=== PATIENT | female | born 1940 | race Two or more races ===

== ENCOUNTER 2017-04-13 21:10 | Emergency (ER) | payer OTHER, MEDICARE ==
[2017-04-13] MEDS ORDERED: Furosemide 40 MG/4 ML VIAL IVPUSH ONE ×2 (21:44→23:33)
--- NOTE | 2017-04-13 21:44 | EDM.PDOC ---
ED HPI GENERAL MEDICAL PROBLEM - General Chief Complaint: Chest Pain Stated Complaint: CHEST PAIN,SOB Time Seen by Provider: 04/13/17 21:12 Source of Information: Reports: Patient History Limitations: Reports: No Limitations - History of Present Illness INITIAL COMMENTS - FREE TEXT/NARRATIVE: Patient comes to ER complaining of increasing SOB over the past 5 days since running out of her diuretic. She has been running out of other medications as well and has not been taking all of them as prescribed, sometimes skipping doses to make them last longer. Tonight she developed some chest pain which is why she came in. Patient has long history of CHF/cardiolmyopathy as well as COPD and says she has felt exactly this way in the past when she "had too much fluid in (her) lungs". She recently moved her with family from [place]. She had prescriptions with her when she moved. Evaluated in our ER last January and transferred to [place] where she says she was seen by multiple specialists. She was supposed to follow up locally but has been unable to establish local care due to insurance issues and not being able to get covered. States that [facility] here spent a significant amount of time trying to get coverage for patient to be seen there but was unable. She says that this is why she has not been able to get her meds renewed and led to today's problems as she cannot find a local primary provider. ROS positive for increased SOB/fatigue/cough. No fevers. No obvious signs of cold/URI. Denies acute GI changes. No /MS/Neuro acute changes. No report of chest pain radiating anywhere else. She has been unable to check blood sugars due to being out of supplies. Looking through her medications she appears to be out of Spironolactone, Bumetanide, Zestril, Atorvastatin, Omeprazole. Some medications that she had been on in [place] were changed by [facility] during her recent stay there. CHEST PRESSURE Pain Score (Numeric/FACES): 8 - Related Data Allergies Allergy/AdvReac Type Severity Reaction Status Date / Time No Known Allergies Allergy Verified 04/13/17 21:11 Home Meds: Home Meds Albuterol/Ipratropium [DuoNeb 3.0-0.5 MG/3 ML] 3 ml NEB QID 02/21/17 [History] Aspirin [Halfprin] 81 mg PO DAILY 02/21/17 [History] Brinzolamide [Azopt] 1 drop EYEBOTH BID 02/21/17 [History] Carvedilol [Coreg] 25 mg PO BID 02/21/17 [History] Furosemide [Lasix] 40 mg PO DAILY 02/21/17 [History] Insulin Glarg,Human.Rec.Analog [LantUS Solostar] 10 units SUBCUT DAILY 02/21/17 [History] Insulin Glulisine [Apidra Solostar] 10 unit SQ DAILY 02/21/17 [History] Ipratropium [Atrovent HFA] 2 puff INH Q2H PRN 02/21/17 [History] Latanoprost [Xalatan 0.005% Oph Soln] 1 drop EYEBOTH BEDTIME 02/21/17 [History ] Lisinopril [Zestril] 4 tab PO BEDTIME 02/21/17 [History] Omeprazole 20 mg PO DAILY 02/21/17 [History] atorvaSTATin Calcium [Atorvastatin Calcium] 80 mg PO BEDTIME 02/21/17 [History] Bumetanide 1 mg PO DAILY 04/13/17 [History] Ferrous Sulfate 325 mg PO DAILY 04/13/17 [History] Spironolactone [Aldactone] 25 mg PO DAILY 04/13/17 [History] Past Medical History HEENT History: Reports: Cataract, Glaucoma, Hard of Hearing, Impaired Vision, Other (See Below). Denies: Allergic Rhinitis, Macular Degeneration, Retinal Detachment Other HEENT History: Patient wears glasses; 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 Cardiovascular History: Reports: Cardiomyopathy, Heart Failure, High Cholesterol , Hypertension, Syncope, Other (See Below). Denies: Afib, Aneurysm, Arrhythmia , Blood Clots/VTE/DVT, CAD, Heart Murmur, VA, Pacemaker Other Cardiovascular History: Cardiomyopathy and history of CHF with ejection fraction of about 30% per son's history; syncopal episode of unknown etiology in 2017 Respiratory History: Reports: COPD, Other (See Below). Denies: Intubation, Previous, PE, Pneumothorax, Sleep Apnea Other Respiratory History: O2 dependent COPD Gastrointestinal History: Reports: Chronic Diarrhea, Gastritis, GERD. Denies: Celiac Disease, Cholelithiasis, Chronic Constipation, Colon Polyp, Diverticulosis, Fecal Incontinence, GI Bleed, Hepatitis, Inflammatory Bowel Disease, Irritable Bowel Syndrome, Jaundice, Pancreatitis, PUD Genitourinary History: Reports: Chronic Renal Insuffiency, Diabetic Nephropathy , UTI, Recurrent. 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 Denies: Endometriosis, Spontaneous , Therapeutic Musculoskeletal History: Reports: Arthritis, Osteoarthritis. Denies: Amputation , Back Pain, Chronic, Fracture, Gout, Neck Pain, Chronic, Osteoporosis, RA, SLE Neurological History: Reports: Neuropathy, Diabetic, Neuropathy, Peripheral. Denies: Cerebral Aneurysms, Concussion, CVA, Headaches, Chronic, Head Trauma, Migraines, MS, Parkinson's, Seizure, TIA Psychiatric History: Reports: None. Denies: Abuse, Victim of, ADD, ADHD, Addiction, Anxiety, Depression, Psych Hospitalization(s), PTSD, Suicide Attempt , Suicidal Ideation Other Psychiatric History: Son with alcohol abuse with secondary alcoholic cardiomyopathy, CHF, anxiety, depression, and successful suicide at age 45 with previous inpatient treatment for his addiction, etc. Endocrine/Metabolic History: Reports: Diabetes, Type II, IDDM. Denies: Hypothyroidism Hematologic History: Reports: Anemia, Blood Transfusion(s), Iron Deficiency, Other (See Below) Other Hematologic History: Transfusion secondary to dysfunctional uterine bleeding in her 40s Immunologic History: Reports: None. Denies: AIDS, HIV, SLE Oncologic (Cancer) History: Reports: Cervix, Other (See Below). Denies: Basal Cell Carcinoma, Colon, Hodgkin's Lymphoma, Leukemia, Lymphoma, Malignant Melanoma, Non-Hodgkin's Lymphoma, Squamous Cell Carcinoma Other Oncologic History: Incidental Cervical cancer in her 40s at time of her hysterectomy with no further treatment required Dermatologic History: Reports: None. Denies: Eczema, Psoriasis - Infectious Disease History Infectious Disease History: Reports: Chicken Pox, Measles, Mumps, TB (TB exposure with no true infection with medications given). Denies: C-Difficile, Meningitis, Mononucleosis, MRSA, Pertussis (Whooping Cough), Rheumatic Fever, Rubella, Scarlet Fever, Shingles, VRE - Past Surgical History Head Surgeries/Procedures: Reports: None HEENT Surgical History: Reports: Cataract Surgery, Oral Surgery, Tonsillectomy, Other (See Below). Denies: Adenoidectomy, Eye Surgery, Laser Surgery, LASIK, Myringotomy w Tube(s), Naso-Sinus Surgery Other HEENT Surgeries/Procedures: Bilateral cataract surgery in about 2014; Tonsillectomy at age 13 Cardiovascular Surgical History: Reports: None. Denies: Varicose Respiratory Surgical History: Reports: None. Denies: Lung Biopsies, Thoracentesis GI Surgical History: Reports: Appendectomy, Colonoscopy, Other (See Below). Denies: EGD, Hernia, Abdominal, Hernia, Inguinal, Hernia Repair/Other, Polypectomy Other GI Surgeries/Procedures: Appendectomy in 1967; colonoscopy in 1994 Female Surgical History: Reports: Hysterectomy, Salpingo-Oophorectomy, Other (See Below). Denies: Breast Biopsy, Section, Tubal Ligation Other Female Surgeries/Procedures: Complete hysterectomy including bilateral salpingo-oophorectomy in her 40s secondary to dysfunctional uterine bleeding Musculoskeletal Surgical History: Reports: Arthroscopic Procedure, Carpal Tunnel , Joint Replacement, Knee Replacement, Shoulder Surgery, Other (See Below). Denies: Ganglion Cyst, Hip Replacement, ORIF Other Musculoskeletal Surgeries/Procedures:: Left total knee arthroplasty in 2004; bilateral arthroscopic shoulder surgery in 2001; Left carpal tunnel release 1997 Oncologic Surgical History: Reports: None Dermatological Surgical History: Reports: None - Past Imaging History Past Imaging History: Reports: Cardiac Echo (Last echocardiogram in June 2016 per patient with ejection fraction of 30% at that time) Social & Family History - Family History Cardiac: Reports: CAD, Cardiomyopathy, Heart Failure, High Cholesterol, Hypertension, VA, Other (See Below). Denies: Afib, Aneurysm, Arrhythmia, Blood Clots/VTE/DVT, Bypass, Heart Murmur, PVD/COD, Stent, Syncope Other Cardiac Family History: Father with fatal VA at age 67; 3 brothers with hypertension; brother with hyperlipidemia; son with alcohol-induced cardiomyopathy Respiratory: Reports: None. Denies: Asthma, COPD, PE, Pneumothorax GI: Reports: GERD, Other (See Below). Denies: Celiac Disease, Cholelithiasis, Colon Polyps, Diverticulosis, GI bleed, Hepatitis, Inflammatory Bowel Disease, Irritable Bowel Syndrome, Jaundice, Pancreatitis, PUD Other GI Family History: GERD in brother : Reports: Diabetic Nephropathy, Dialysis, Renal Disease/Insufficiency, Other (See Below). Denies: Renal Calculus Other Family History: Sister with diabetic nephropathy requiring dialysis OBGYN: Reports: Recurrent Spontaneous . Denies: Dysfunctional uterine bleeding, Endometriosis, Fibroids Other OBGYN Family History: Sister with recurrent SAB Musculoskeletal: Reports: None. Denies: Gout, RA, SLE Neurological: Reports: None. Denies: Alzheimers Disease, CVA, Dementia, Migraines, MS, Neuropathy, Diabetic, Neuropathy, Peripheral, Parkinson's, Seizure, TIA Psychiatric: Reports: Anxiety, Depression, Psych Hospitalization(s), Suicide Attempt, Other (See Below). Denies: Abuse, Victim of, ADD, PTSD Other Psychiatric Family History: Son with alcohol abuse with secondary alcoholic cardiomyopathy, CHF, anxiety, depression, and successful suicide at age 45 with previous inpatient treatment for his addiction, etc. Endocrine/Metabolic: Reports: Diabetes, type II, Other (See Below). Denies: Hypothyroidism, IDDM Other Endocrine/Metabolic Family History: Sister with AODM with complications as above Hematologic: Reports: None. Denies: Anemia, SLE Immunologic: Reports: None. Denies: AIDS, HIV, SLE Dermatologic: Reports: None. Denies: Eczema, Psoriasis Oncologic: Reports: Other (See Below). Denies: Hodgkin's Lymphoma, Leukemia, Lymphoma, Non-Hodgkin's Lymphoma, Prostate Other Oncologic Family History: Brothers 2 with unknown type of fatal cancer - Tobacco Use Smoking Status *Q: Former Smoker Years of Tobacco use: 10 Packs/Tins Daily: 1.5 (Stop smoking in her 30s) Used Tobacco, but Quit: Yes Month Tobacco Last Used: quit 50 years ago Second Hand Smoke Exposure: Yes - Caffeine Use Caffeine Use: Reports: Soda (2 sodas per day and), Tea (3 cups per day). Denies : Coffee, Energy Drinks - Alcohol Use Days Per Week of Alcohol Use: 0 (No previous DWIs, problems with alcohol abuse, etc.) - Recreational Drug Use Recreational Drug Use: No Drug Use in Last 12 Months: No - Living Situation & Occupation Living situation: Reports: (2016, 4 children) Occupation: Retired ([employer], retired at age 69) ED ROS GENERAL - Review of Systems Review Of Systems: See Below Constitutional: Reports: Fatigue, Night Sweats, Weight Gain (uncertain), Other ( no diaphoresis associated with chest pain). Denies: Fever, Chills, Malaise, Weakness HEENT: Reports: No Symptoms Respiratory: Reports: Shortness of Breath, Cough. Denies: Wheezing, Pleuritic Chest Pain, Sputum, Hemoptysis Cardiovascular: Reports: Chest Pain, Dyspnea on Exertion, Orthopnea. Denies: Edema, Lightheadedness, Palpitations, Syncope GI/Abdominal: Reports: Diarrhea (has had issus with loose stools intermittently for awhile, improving). Denies: Abdominal Pain, Black Stool, Bloody Stool, Distension, Nausea, Vomiting : Reports: No Symptoms Musculoskeletal: Reports: No Symptoms (no acute changes form baseline reported other than some swelling around right knee at times) Skin: Reports: No Symptoms Neurological: Reports: No Symptoms Psychiatric: Reports: No Symptoms ED EXAM, GENERAL - Physical Exam Exam: See Below Exam Limited By: No Limitations General Appearance: Alert, WD/WN, No Apparent Distress, Obese, Other (Breathing hard when she followed son in from parking lot into ER. ) Eye Exam: Bilateral Eye: EOMI, PERRL Ears: Normal External Exam Nose: No: Nasal Swelling, Nasal Drainage Throat/Mouth: Normal Lips, Normal Voice, No Airway Compromise Head: Atraumatic, Normocephalic Neck: Normal Inspection, Supple, Non-Tender, Full Range of Motion. No: Carotid Bruit, Lymphadenopathy (L), Lymphadenopathy (R) Respiratory/Chest: No Respiratory Distress, Chest Non-Tender, Decreased Breath Sounds (right mid/lower lung). No: Crackles, Rales, Rhonchi, Wheezing, Stridor , Retractions Cardiovascular: Normal Peripheral Pulses, No Edema, No Murmur, Tachycardia (104) Peripheral Pulses: 2+: Radial (L), Radial (R), Dorsalis Pedis (L), Dorsalis Pedis (R) GI/Abdominal: Normal Bowel Sounds, Soft, Non-Tender, No Distention (Female) Exam: Deferred Rectal (Female) Exam: Deferred Back Exam: Normal Inspection. No: CVA Tenderness (L), CVA Tenderness (R) Extremities: Normal Inspection, Non-Tender, No Pedal Edema, Normal Capillary Refill Neurological: Alert, Oriented, Normal Cognition, Normal Gait, No Motor/Sensory Deficits Psychiatric: Normal Affect, Normal Mood Skin Exam: Warm, Dry, Intact, Normal Color EKG INTERPRETATION EKG Date: 04/13/17 Time: 21:15 Rhythm: NSR Rate (Beats/Min): 95 [place]: Normal P-Wave: Present QRS: Normal ST-T: Other (No obvious/definite ST depression or elevation) QT: Normal Comparison: No Change EKG Interpretation Comments: Overall no change from previous EKG. Voltage change suggests LVH Course - Vital Signs Last Recorded V/S: Last Vital Signs Temp 36.8 C 04/13/17 21:32 Pulse 118 H 04/13/17 21:32 Resp 19 04/13/17 21:32 BP 169/99 H 04/13/17 22:26 Pulse Ox 97 04/13/17 21:32 - Orders/Labs/Meds Orders: Active Orders 24 hr Category Date Time Status EKG Documentation Completion [RC] ASDIRECTED Care 04/13/17 21:13 Active Penaloza Catheter Insertion [Insert Urinary Catheter] [OM. Care 04/13/17 22:45 Ordered PC] Q24H Urinary Catheter Assessment [RC] ASDIRECTED Care 04/13/17 22:42 Ordered Chest 1V Frontal [CR] Stat Exams 04/13/17 21:14 Ordered UA W/MICROSCOPIC [URIN] Stat Lab 04/13/17 21:13 Uncollected Sodium Chloride 0.9% [Saline Flush] Med 04/13/17 21:13 Active 10 ml FLUSH ASDIRECTED PRN Saline Lock Insert [OM.PC] Stat Oth 04/13/17 21:13 Ordered Medication Orders Sodium Chloride (Saline Flush) 10 ml FLUSH ASDIRECTED PRN PRN Reason: Keep Vein Open Last Admin: 04/13/17 21:53 Dose: 10 ml Labs: Laboratory Tests 04/13/17 04/13/17 04/13/17 Range/Units 21:20 21:25 21:25 WBC 9.0 (4.0-10.2) K/uL RBC 4.07 (3.77-5.09) M/uL Hgb 12.1 (11.7-15.5) g/dL Hct 37.1 (34.0-46.0) % MCV 91.2 D (84.0-98.0) fL MCH 29.7 (28.2-33.3) pg MCHC 32.6 (31.7-36.0) g/dL RDW 13.8 (11.2-14.1) % Plt Count 183 (150-350) K/uL Neut % (Auto) 51.8 (45.0-80.0) % Lymph % (Auto) 38.1 (10.0-50.0) % Pope % (Auto) 6.7 (2.0-14.0) % Eos % (Auto) 3.0 (0.0-5.0) % Baso % (Auto) 0.4 (0.0-2.0) % Neut # (Auto) 4.64 (1.40-7.00) K/uL Lymph # (Auto) 3.42 (0.50-3.50) K/uL Pope # (Auto) 0.60 (0.00-1.00) K/uL Eos # (Auto) 0.27 (0.00-0.50) K/uL Baso # (Auto) 0.04 (0.00-0.20) K/uL PT (9.8-11.7) SEC INR D-Dimer, Quantitative 352 (0-400) ng/mL Sodium 142 (136-145) mmol/L Potassium 3.9 (3.5-5.1) mmol/L Chloride 106 (98-107) mmol/L Carbon Dioxide 26.4 (21.0-32.0) mmol/L BUN 24 H (7-18) mg/dL Creatinine 0.75 (0.51-1.17) mg/dL Est Cr Clr Drug Dosing 55.10 mL/min Estimated GFR (MDRD) > 60 mL/min Glucose 216 H (74-106) mg/dL Calcium 8.4 L (8.5-10.1) mg/dL Total Bilirubin 0.5 (0.2-1.0) mg/dL AST 16 (15-37) U/L ALT 20 (12-78) U/L Alkaline Phosphatase 139 H (46-116) IU/L Creatine Kinase 62 (26-308) U/L Creatine Kinase Index 1.3 (0.0-2.5) % CK-MB (CK-2) 0.80 (0.00-3.60) ng/mL Troponin I 0.016 (0.000-0.056) ng/mL NT-Pro-B Natriuret Pep 7026 H (0-125) pg/mL Total Protein 6.6 (6.4-8.2) g/dL Albumin 3.0 L (3.4-5.0) g/dL 04/13/17 Range/Units 21:25 WBC (4.0-10.2) K/uL RBC (3.77-5.09) M/uL Hgb (11.7-15.5) g/dL Hct (34.0-46.0) % MCV (84.0-98.0) fL MCH (28.2-33.3) pg MCHC (31.7-36.0) g/dL RDW (11.2-14.1) % Plt Count (150-350) K/uL Neut % (Auto) (45.0-80.0) % Lymph % (Auto) (10.0-50.0) % Pope % (Auto) (2.0-14.0) % Eos % (Auto) (0.0-5.0) % Baso % (Auto) (0.0-2.0) % Neut # (Auto) (1.40-7.00) K/uL Lymph # (Auto) (0.50-3.50) K/uL Pope # (Auto) (0.00-1.00) K/uL Eos # (Auto) (0.00-0.50) K/uL Baso # (Auto) (0.00-0.20) K/uL PT 11.3 (9.8-11.7) SEC INR 1.1 D-Dimer, Quantitative (0-400) ng/mL Sodium (136-145) mmol/L Potassium (3.5-5.1) mmol/L Chloride (98-107) mmol/L Carbon Dioxide (21.0-32.0) mmol/L BUN (7-18) mg/dL Creatinine (0.51-1.17) mg/dL Est Cr Clr Drug Dosing mL/min Estimated GFR (MDRD) mL/min Glucose (74-106) mg/dL Calcium (8.5-10.1) mg/dL Total Bilirubin (0.2-1.0) mg/dL AST (15-37) U/L ALT (12-78) U/L Alkaline Phosphatase (46-116) IU/L Creatine Kinase (26-308) U/L Creatine Kinase Index (0.0-2.5) % CK-MB (CK-2) (0.00-3.60) ng/mL Troponin I (0.000-0.056) ng/mL NT-Pro-B Natriuret Pep (0-125) pg/mL Total Protein (6.4-8.2) g/dL Albumin (3.4-5.0) g/dL Meds: Medications Generic Name Dose Route Start Last Admin Trade Name Freq PRN Reason Stop Dose Admin Sodium Chloride 10 ml 04/13/17 21:13 04/13/17 21:53 Saline Flush FLUSH 10 ml ASDIRECTED PRN Administration Keep Vein Open Discontinued Medications Generic Name Dose Route Start Last Admin Trade Name Freq PRN Reason Stop Dose Admin Aspirin 324 mg 04/13/17 22:22 04/13/17 22:26 Aspirin PO 04/13/17 22:23 324 mg ONETIME ONE Administration Furosemide 40 mg 04/13/17 21:44 04/13/17 21:53 Lasix IVPUSH 04/13/17 21:45 40 mg NOW ONE Administration Nitroglycerin 0.4 mg 04/13/17 22:21 04/13/17 22:26 Nitrostat SL 04/13/17 22:22 0.4 mg ONETIME ONE Administration - Radiology Interpretation Free Text/Narrative:: Chest Xray showed no acute changes when compared to previous film from 2 months ago. No obvious acute new infiltrate/pneumo or worsening pleural effusion. CHF/ cardiomegaly noted. Mild pleural effusions appear to be still present. - Re-Assessments/Exams Free Text/Narrative Re-Assessment/Exam: 04/13/17 22:43 Patient improved once sitting in bed resting and back on usual O2 of 2L NC. BP quite high, that improved with time but remained elevated. Heart rate improved but would increase to 110-120 with activity. CBC unremarkable. Chem showed elevated blood sugar 216 lower albumin. Troponin and CKMB normal. DDimer normal. IV access obtained. Patient given Lasix. Nitro SL given for her chest pain, located to left of sternum. Pain improved significantly. Protonix ordered. Penaloza placed. Lisinopril given PO. Given complexity of patient (DM,CHF,Cardiomyopathy,renal insufficiency, pulmonary hypertension, COPD) and lack of local provider, [facility] contacted. agreed to accept patient in transfer for treatment of CHF exacerbation and other comorbitities. It was stress to pt prior to transfer that she needs to get help from [facility] at time of discharge to get follow up appointments with appropriate providers that are covered by her plan for best medical care so this situation does not happen again. She was agreeable/ Departure - Departure Time of Disposition: 23:02 Disposition: DC/Tfer to [facility] 02 Reason for Transfer *Q: Primary PCI Indicated Condition: Fair Clinical Impression: Pulmonary hypertension, Peptic reflux disease CHF (congestive heart failure) Qualifiers: Congestive heart failure type: unspecified congestive heart failure type Congestive heart failure chronicity: acute on chronic Qualified Code(s): I50.9 - Heart failure, unspecified COPD (chronic obstructive pulmonary disease) Qualifiers: COPD type: emphysema Emphysema type: panlobular Qualified Code(s): J43.1 - Panlobular emphysema Diabetes mellitus Qualifiers: Diabetes mellitus type: type 2 Diabetes mellitus complication status: with kidney complications Diabetes mellitus complication detail: with chronic kidney disease Diabetes mellitus marine 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 terminal 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 insulin use: with marine oil terminal 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 use Chronic kidney disease stage: stage 3 (moderate) Qualified Code(s): E11.22 - Type 2 diabetes mellitus with diabetic chronic kidney disease; N18.3 - Chronic kidney disease, stage 3 (moderate); N18.3 - Chronic kidney disease, stage 3 (moderate) ; Z79.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; Z79.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; Z79.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; Z79.4 - marine oil terminal 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 ( current) use of insulin Chest pain Qualifiers: Chest pain type: unspecified Qualified Code(s): R07.9 - Chest pain, unspecified HTN (hypertension) Qualifiers: Hypertension type: essential hypertension Qualified Code(s): I10 - Essential ( primary) hypertension Forms: ED Department Discharge - My Orders Last 24 Hours: My Active Orders 04/13/17 21:13 EKG Documentation Completion [RC] ASDIRECTED UA W/MICROSCOPIC [URIN] Stat Sodium Chloride 0.9% [Saline Flush] 10 ml FLUSH ASDIRECTED PRN Saline Lock Insert [OM.PC] Stat 04/13/17 21:14 Chest 1V Frontal [CR] Stat 04/13/17 22:42 Urinary Catheter Assessment [RC] ASDIRECTED 04/13/17 22:45 Penaloza Catheter Insertion [Insert Urinary Catheter] [OM.PC] Q24H - Assessment/Plan Last 24 Hours: My Active Orders 04/13/17 21:13 EKG Documentation Completion [RC] ASDIRECTED UA W/MICROSCOPIC [URIN] Stat Sodium Chloride 0.9% [Saline Flush] 10 ml FLUSH ASDIRECTED PRN Saline Lock Insert [OM.PC] Stat 04/13/17 21:14 Chest 1V Frontal [CR] Stat 04/13/17 22:42 Urinary Catheter Assessment [RC] ASDIRECTED 04/13/17 22:45 Penaloza Catheter Insertion [Insert Urinary Catheter] [OM.PC] Q24H
[2017-04-13 21:50] LABS: CHLORIDE,CL 106 mmol/L (98-107); SODIUM,NA 142 mmol/L (136-145)
[2017-04-13] MEDS: Sodium Chloride 0.9% 10 ML Syringe FLUSH PRN ×3 (21:53→23:36)
[2017-04-13] MEDS ORDERED: Nitroglycerin 0.4 MG Tab.SL SL ONE (22:21)
[2017-04-13] MEDS ORDERED: Aspirin 81 MG Tab.Chew PO ONE (22:22)
[2017-04-13] MEDS ORDERED: Pantoprazole 40 MG Vial IVPUSH ONE (22:54)
[2017-04-13] MEDS ORDERED: Albuterol/Ipratropium 3.0-0.5 MG/3 ML Neb Soln NEB ONE (22:56)
[2017-04-13] MEDS ORDERED: Lisinopril 10 MG Tab PO ONE (22:57)
== END 2017-04-14 00:05 ==
LOC: LL.ED 21:10
DX: I13.0 Hypertensive heart and chronic kidney disease with heart failure and stage 1 through stage 4 chronic kidney disease, or unspecified chronic kidney disease (principal); E11.22 Type 2 diabetes mellitus with diabetic chronic kidney disease; N18.3 Chronic kidney disease, stage 3 (moderate); I50.9 Heart failure, unspecified; I27.20 Pulmonary hypertension, unspecified; K21.9 Gastro-esophageal reflux disease without esophagitis; J43.1 Panlobular emphysema; I25.10 Atherosclerotic heart disease of native coronary artery without angina pectoris; E11.40 Type 2 diabetes mellitus with diabetic neuropathy, unspecified; E11.21 Type 2 diabetes mellitus with diabetic nephropathy; Z87.891 Personal history of nicotine dependence; Z79.4 Long term (current) use of insulin; Z79.82 Long term (current) use of aspirin; Z79.899 Other long term (current) drug therapy
CPT/HCPCS: 36415; 51702; 71045; 80053; 81001; 82550; 82553; 83880; 84484; 85025; 85379; 85610; 93005; 93010; 94640; 96374; 96375; 96376; 99285; A9270-GY; C9113; J1940; J7050

== ENCOUNTER 2017-11-26 13:23 | Inpatient (IN) | payer OTHER, MEDICARE ==
[2017-11-26] MEDS ORDERED: Furosemide 40 MG/4 ML VIAL IVPUSH ONE (14:17)
[2017-11-26] MEDS: Sodium Chloride 0.9% 10 ML Syringe FLUSH PRN (14:22)
--- NOTE | 2017-11-26 14:25 | EDM.PDOC ---
ED HPI GENERAL MEDICAL PROBLEM - General Chief Complaint: Cardiovascular Problem Stated Complaint: Worsening CHF Time Seen by Provider: 11/26/17 13:30 Source of Information: Reports: Patient, Family History Limitations: Reports: No Limitations - History of Present Illness INITIAL COMMENTS - FREE TEXT/NARRATIVE: Patient is a 77-year-old was brought in by [id number] for evaluation of progressive shortness of breath. At this time patient states that for the last 2 weeks she has had progressive shortness of breath with increased weakness but for the last 2 days this has progressively gotten much worse to the point that she was becoming short of breath with minimal ambulation. Onset: Gradual Duration: Week(s): Location: Reports: Chest Severity: Moderate Improves with: Reports: Medication Worsens with: Reports: Movement Context: Reports: Other (Chronic illness) - Related Data Allergies Allergy/AdvReac Type Severity Reaction Status Date / Time No Known Allergies Allergy Verified 11/26/17 14:14 Home Meds: Home Meds Albuterol/Ipratropium [DuoNeb 3.0-0.5 MG/3 ML] 3 ml NEB QID 02/21/17 [History] Aspirin [Halfprin] 81 mg PO DAILY 02/21/17 [History] Brinzolamide [Azopt] 1 drop EYEBOTH BID 02/21/17 [History] Carvedilol [Coreg] 25 mg PO BID 02/21/17 [History] Insulin Glarg,Human.Rec.Analog [LantUS Solostar] 10 units SUBCUT DAILY 02/21/17 [History] Insulin Glulisine [Apidra Solostar] 10 unit SQ DAILY 02/21/17 [History] Ipratropium [Atrovent HFA] 2 puff INH Q2H PRN 02/21/17 [History] Latanoprost [Xalatan 0.005% Ophth Soln] 1 drop EYEBOTH BEDTIME 02/21/17 [History ] Omeprazole 20 mg PO DAILY 02/21/17 [History] atorvaSTATin Calcium [Atorvastatin Calcium] 40 mg PO BEDTIME 02/21/17 [History] Bumetanide 1 mg PO DAILY 04/13/17 [History] Spironolactone [Aldactone] 25 mg PO DAILY 04/13/17 [History] Lisinopril 2.5 mg PO DAILY 11/26/17 [History] Past Medical History HEENT History: Reports: Cataract, Glaucoma, Hard of Hearing, Impaired Vision, Other (See Below) Other HEENT History: Patient wears glasses; 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 Cardiovascular History: Reports: Cardiomyopathy, Heart Failure, High Cholesterol , Hypertension, Syncope, Other (See Below) Other Cardiovascular History: Cardiomyopathy and history of CHF with ejection fraction of about 30% per son's history; syncopal episode of unknown etiology in 2017 Respiratory History: Reports: COPD, Other (See Below) Other Respiratory History: O2 dependent COPD Gastrointestinal History: Reports: Chronic Diarrhea, Gastritis, GERD Genitourinary History: Reports: Chronic Renal Insuffiency, Diabetic Nephropathy , UTI, Recurrent SAMPLE WEAVER History: Reports: Dysfunctional Uterine Bleeding, Fibroids, Musculoskeletal History: Reports: Arthritis, Osteoarthritis Neurological History: Reports: Neuropathy, Diabetic, Neuropathy, Peripheral Psychiatric History: Reports: None Other Psychiatric History: Son with alcohol abuse with secondary alcoholic cardiomyopathy, CHF, anxiety, depression, and successful suicide at age 45 with previous inpatient treatment for his addiction, etc. Endocrine/Metabolic History: Reports: Diabetes, Type II, IDDM Hematologic History: Reports: Anemia, Blood Transfusion(s), Iron Deficiency, Other (See Below) Other Hematologic History: Transfusion secondary to dysfunctional uterine bleeding in her 40s Immunologic History: Reports: None Oncologic (Cancer) History: Reports: Cervix, Other (See Below) Other Oncologic History: Incidental Cervical cancer in her 40s at time of her hysterectomy with no further treatment required Dermatologic History: Reports: None - Infectious Disease History Infectious Disease History: Reports: Chicken Pox, Measles, Mumps, TB - Past Surgical History Head Surgeries/Procedures: Reports: None HEENT Surgical History: Reports: Cataract Surgery, Oral Surgery, Tonsillectomy, Other (See Below) Other HEENT Surgeries/Procedures: Bilateral cataract surgery in about 2013; Tonsillectomy at age 13 Cardiovascular Surgical History: Reports: None Respiratory Surgical History: Reports: None GI Surgical History: Reports: Appendectomy, Colonoscopy, Other (See Below) Other GI Surgeries/Procedures: Appendectomy in 1967; colonoscopy in 1994 Female Surgical History: Reports: Hysterectomy, Salpingo-Oophorectomy, Other (See Below) Other Female Surgeries/Procedures: Complete hysterectomy including bilateral salpingo-oophorectomy in her 40s secondary to dysfunctional uterine bleeding Musculoskeletal Surgical History: Reports: Arthroscopic Procedure, Carpal Tunnel , Joint Replacement, Knee Replacement, Shoulder Surgery, Other (See Below) Other Musculoskeletal Surgeries/Procedures:: Left total knee arthroplasty in 2004; bilateral arthroscopic shoulder surgery in 2001; Left carpal tunnel release 1997 Oncologic Surgical History: Reports: None Dermatological Surgical History: Reports: None - Past Imaging History Past Imaging History: Reports: Cardiac Echo (Last echocardiogram in June 2016 per patient with ejection fraction of 30% at that time) Social & Family History - Family History Cardiac: Reports: CAD, Cardiomyopathy, Heart Failure, High Cholesterol, Hypertension, [place], Other (See Below) Other Cardiac Family History: Father with fatal [place] at age 67; 3 brothers with hypertension; brother with hyperlipidemia; son with alcohol-induced cardiomyopathy Respiratory: Reports: None GI: Reports: GERD, Other (See Below) Other GI Family History: GERD in brother : Reports: Diabetic Nephropathy, Dialysis, Renal Disease/Insufficiency, Other (See Below) Other Family History: Sister with diabetic nephropathy requiring dialysis OBGYN: Reports: Recurrent Spontaneous Other OBGYN Family History: Sister with recurrent SAB Musculoskeletal: Reports: None Neurological: Reports: None Psychiatric: Reports: Anxiety, Depression, Psych Hospitalization(s), Suicide Attempt, Other (See Below) Other Psychiatric Family History: Son with alcohol abuse with secondary alcoholic cardiomyopathy, CHF, anxiety, depression, and successful suicide at age 45 with previous inpatient treatment for his addiction, etc. Endocrine/Metabolic: Reports: Diabetes, type II, Other (See Below) Other Endocrine/Metabolic Family History: Sister with AODM with complications as above Hematologic: Reports: None Immunologic: Reports: None Dermatologic: Reports: None Oncologic: Reports: Other (See Below) Other Oncologic Family History: Brothers 2 with unknown type of fatal cancer - Caffeine Use Caffeine Use: Reports: Soda (2 sodas per day and), Tea (3 cups per day). Denies : Coffee, Energy Drinks - Living Situation & Occupation Living situation: Reports: (2016, 4 children) Occupation: Retired ([employer], retired at age 69) ED ROS GENERAL - Review of Systems Review Of Systems: See Below Constitutional: Reports: No Symptoms HEENT: Reports: No Symptoms Respiratory: Reports: Shortness of Breath, Cough Cardiovascular: Reports: Chest Pain Endocrine: Reports: No Symptoms GI/Abdominal: Reports: Nausea, Vomiting : Reports: No Symptoms Musculoskeletal: Reports: No Symptoms Skin: Reports: No Symptoms Neurological: Reports: No Symptoms Psychiatric: Reports: No Symptoms ED EXAM, GENERAL - Physical Exam Exam: See Below Exam Limited By: Respiratory Distress General Appearance: Alert, Moderate Distress, Obese Ears: Normal External Exam, Normal Canal, Hearing Grossly Normal, Normal TMs Nose: Normal Inspection Throat/Mouth: Normal Inspection, Normal Lips, Normal Teeth, Normal Gums, Normal Oropharynx, Normal Voice, No Airway Compromise Head: Atraumatic Neck: Normal Inspection, Supple, Non-Tender, Full Range of Motion Respiratory/Chest: Respiratory Distress, Decreased Breath Sounds, Rales Cardiovascular: Normal Peripheral Pulses, Regular Rate, Rhythm GI/Abdominal: Normal Bowel Sounds, Non-Tender, No Organomegaly, No Distention (Female) Exam: Deferred Rectal (Female) Exam: Deferred Back Exam: Decreased Range of Motion Extremities: Normal Inspection Neurological: Alert, Oriented, CN II-XII Intact, Normal Cognition, Normal Gait, Normal Reflexes, No Motor/Sensory Deficits Psychiatric: Normal Affect Skin Exam: Warm, Dry Course - Vital Signs Last Recorded V/S: Last Vital Signs Temp 99.1 F 11/28/17 07:42 Pulse 83 11/28/17 07:53 Resp 20 11/28/17 07:42 BP 138/79 11/28/17 07:53 Pulse Ox 94 L 11/28/17 07:42 - Orders/Labs/Meds Orders: Medication Orders Albuterol/Ipratropium (Duoneb 3.0-0.5 Mg/3 Ml) 3 ml NEB QID [facility] Last Admin: 11/28/17 07:54 Dose: 3 ml Admin: 11/27/17 19:43 Dose: 3 ml Admin: 11/27/17 16:00 Dose: 3 ml Admin: 11/27/17 12:06 Dose: 3 ml Admin: 11/27/17 08:19 Dose: 3 ml Admin: 11/26/17 21:33 Dose: 3 ml Admin: 11/26/17 18:27 Dose: 3 ml Aspirin (Halfprin) 81 mg PO DAILY [facility] Last Admin: 11/28/17 07:52 Dose: 81 mg Admin: 11/27/17 08:15 Dose: 81 mg Atorvastatin Calcium (Lipitor) 40 mg PO BEDTIME [facility] Last Admin: 11/27/17 19:42 Dose: 40 mg Admin: 11/26/17 20:22 Dose: 40 mg Bumetanide (Bumex) 1 mg PO DAILY [facility] Last Admin: 11/28/17 07:53 Dose: 1 mg Admin: 11/27/17 08:15 Dose: 1 mg Carvedilol (Coreg) 25 mg PO BID [facility] Last Admin: 11/28/17 07:53 Dose: 25 mg Admin: 11/27/17 17:36 Dose: 25 mg Admin: 11/27/17 08:16 Dose: 25 mg Admin: 11/26/17 18:28 Dose: 25 mg Furosemide (Lasix) 40 mg IVPUSH DAILY [facility] Last Admin: 11/28/17 07:56 Dose: 40 mg Admin: 11/27/17 08:20 Dose: 40 mg Insulin Aspart (Novolog) 0 unit SUBCUT QIDACANDBED [facility]; Protocol Last Admin: 11/28/17 07:54 Dose: 4 units Admin: 11/27/17 19:59 Dose: 8 units Admin: 11/27/17 17:33 Dose: 6 units Admin: 11/27/17 11:49 Dose: 6 units Admin: 11/27/17 08:17 Dose: 2 units Admin: 11/26/17 21:33 Dose: 8 units Insulin Glargine (Lantus) 20 unit SUBCUT DAILY [facility] Last Admin: 11/28/17 07:44 Dose: 20 units Admin: 11/27/17 08:31 Dose: 20 units Ipratropium [place] (Atrovent Hfa) 0 gm INH Q2H PRN PRN Reason: Shortness of Breath Latanoprost (Xalatan 0.005% [facility]) 0 ml EYEBOTH BEDTIME [facility] Last Admin: 11/27/17 19:43 Dose: 1 drop Admin: 11/26/17 20:22 Dose: 1 drop Lisinopril (Prinivil) 2.5 mg PO DAILY [facility] Last Admin: 11/28/17 07:50 Dose: 2.5 mg Admin: 11/27/17 08:15 Dose: 2.5 mg Non-Formulary Medication (Brinzolamide [Azopt]) 1 drop EYEBOTH BID [facility] Last Admin: 11/28/17 07:49 Dose: Admin: 11/27/17 17:35 Dose: Admin: 11/27/17 08:15 Dose: Admin: 11/26/17 18:29 Dose: Omeprazole (Omeprazole) 20 mg PO ACBREAKFAST [facility] Last Admin: 11/28/17 07:57 Dose: 20 mg Admin: 11/27/17 08:14 Dose: 20 mg Sodium Chloride (Saline Flush) 10 ml FLUSH ASDIRECTED PRN PRN Reason: Keep Vein Open Last Admin: 11/28/17 07:56 Dose: 10 ml Admin: 11/27/17 23:55 Dose: 10 ml Admin: 11/26/17 14:22 Dose: 10 ml Spironolactone (Aldactone) 25 mg PO DAILY [facility] Last Admin: 11/28/17 07:54 Dose: 25 mg Admin: 11/27/17 08:14 Dose: 25 mg Labs: Laboratory Tests 11/26/17 11/26/17 11/26/17 Range/Units 13:50 13:50 13:50 WBC 9.7 (4.0-10.2) K/uL RBC 4.29 (3.77-5.09) M/uL Hgb 12.5 (11.7-15.5) g/dL Hct 39.4 (34.0-46.0) % MCV 91.8 (84.0-98.0) fL MCH 29.1 (28.2-33.3) pg MCHC 31.7 (31.7-36.0) g/dL RDW 13.2 (11.2-14.1) % Plt Count 189 (150-350) K/uL Neut % (Auto) 69.4 (45.0-80.0) % Lymph % (Auto) 22.0 (10.0-50.0) % [place] % (Auto) 6.3 (2.0-14.0) % Eos % (Auto) 2.0 (0.0-5.0) % Baso % (Auto) 0.3 (0.0-2.0) % Neut # (Auto) 6.74 (1.40-7.00) K/uL Lymph # (Auto) 2.13 (0.50-3.50) K/uL [place] # (Auto) 0.61 (0.00-1.00) K/uL Eos # (Auto) 0.19 (0.00-0.50) K/uL Baso # (Auto) 0.03 (0.00-0.20) K/uL Sodium 141 (136-145) mmol/L Potassium 3.9 (3.5-5.1) mmol/L Chloride 104 (98-107) mmol/L Carbon Dioxide 28.9 (21.0-32.0) mmol/L BUN 16 (7-18) mg/dL Creatinine 0.76 (0.51-1.17) mg/dL Est Cr Clr Drug Dosing 53.53 mL/min Estimated GFR (MDRD) > 60 mL/min Glucose 536 H* (74-106) mg/dL Hemoglobin A1c (4.3-5.7) % Lactic Acid (0.4-2.0) mmol/L Calcium 8.3 L (8.5-10.1) mg/dL Total Bilirubin 0.7 (0.2-1.0) mg/dL AST 16 (15-37) U/L ALT 17 (12-78) U/L Alkaline Phosphatase 152 H (46-116) IU/L Troponin I 0.011 (0.000-0.056) ng/mL NT-Pro-B Natriuret Pep 28081 H (0-125) pg/mL Total Protein 6.6 (6.4-8.2) g/dL Albumin 2.4 L (3.4-5.0) g/dL Specimen Type Urinvoid Urine Color Yellow Urine Appearance Cloudy Urine pH 5.5 (5.0-9.0) Ur Specific [place] 1.020 (1.005-1.030) Urine Protein >=300 H (NEGATIVE) mg/dL Urine Glucose (UA) 500 H (NEGATIVE) mg/dL Urine Ketones Negative (NEGATIVE) mg/dL Urine Occult Blood Moderate H (NEGATIVE) Urine Nitrite Negative (NEGATIVE) Urine Bilirubin Negative (NEGATIVE) Urine Urobilinogen 0.2 (0.2-1.0) E.U./dL Ur Leukocyte Esterase Trace H (NEGATIVE) Urine RBC >100 H /HPF Urine WBC >100 H /HPF Ur Epithelial Cells Moderate H /LPF Urine Bacteria Many H (NONE TO FEW) /HPF Ketones 11/26/17 11/26/17 11/26/17 Range/Units 13:50 13:50 13:50 WBC (4.0-10.2) K/uL RBC (3.77-5.09) M/uL Hgb (11.7-15.5) g/dL Hct (34.0-46.0) % MCV (84.0-98.0) fL MCH (28.2-33.3) pg MCHC (31.7-36.0) g/dL RDW (11.2-14.1) % Plt Count (150-350) K/uL Neut % (Auto) (45.0-80.0) % Lymph % (Auto) (10.0-50.0) % [place] % (Auto) (2.0-14.0) % Eos % (Auto) (0.0-5.0) % Baso % (Auto) (0.0-2.0) % Neut # (Auto) (1.40-7.00) K/uL Lymph # (Auto) (0.50-3.50) K/uL [place] # (Auto) (0.00-1.00) K/uL Eos # (Auto) (0.00-0.50) K/uL Baso # (Auto) (0.00-0.20) K/uL Sodium (136-145) mmol/L Potassium (3.5-5.1) mmol/L Chloride (98-107) mmol/L Carbon Dioxide (21.0-32.0) mmol/L BUN (7-18) mg/dL Creatinine (0.51-1.17) mg/dL Est Cr Clr Drug Dosing mL/min Estimated GFR (MDRD) mL/min Glucose (74-106) mg/dL Hemoglobin A1c > 14.0 H (4.3-5.7) % Lactic Acid 1.1 (0.4-2.0) mmol/L Calcium (8.5-10.1) mg/dL Total Bilirubin (0.2-1.0) mg/dL AST (15-37) U/L ALT (12-78) U/L Alkaline Phosphatase (46-116) IU/L Troponin I (0.000-0.056) ng/mL NT-Pro-B Natriuret Pep (0-125) pg/mL Total Protein (6.4-8.2) g/dL Albumin (3.4-5.0) g/dL Specimen Type Urine Color Urine Appearance Urine pH (5.0-9.0) Ur Specific [place] (1.005-1.030) Urine Protein (NEGATIVE) mg/dL Urine Glucose (UA) (NEGATIVE) mg/dL Urine Ketones (NEGATIVE) mg/dL Urine Occult Blood (NEGATIVE) Urine Nitrite (NEGATIVE) Urine Bilirubin (NEGATIVE) Urine Urobilinogen (0.2-1.0) E.U./dL Ur Leukocyte Esterase (NEGATIVE) Urine RBC /HPF Urine WBC /HPF Ur Epithelial Cells /LPF Urine Bacteria (NONE TO FEW) /HPF Ketones Negative Meds: Medications Generic Name Dose Route Start Last Admin Trade Name Freq PRN Reason Stop Dose Admin Albuterol/Ipratropium 3 ml 11/26/17 16:00 11/28/17 07:54 Duoneb 3.0-0.5 Mg/3 Ml NEB 3 ml QID [facility] Administration Aspirin 81 mg 11/27/17 08:00 11/28/17 07:52 Halfprin PO 81 mg DAILY [facility] Administration Atorvastatin Calcium 40 mg 11/26/17 20:00 11/27/17 19:42 Lipitor PO 40 mg BEDTIME [facility] Administration Bumetanide 1 mg 11/27/17 08:00 11/28/17 07:53 Bumex PO 1 mg DAILY [facility] Administration Carvedilol 25 mg 11/26/17 18:00 11/28/17 07:53 Coreg PO 25 mg BID [facility] Administration Furosemide 40 mg 11/27/17 08:00 11/28/17 07:56 Lasix IVPUSH 40 mg DAILY [facility] Administration Insulin Aspart 0 unit 11/26/17 21:00 11/28/17 07:54 Novolog SUBCUT 4 units QIDACANDBED [facility] Administration Protocol Insulin Glargine 20 unit 11/27/17 08:00 11/28/17 07:44 Lantus SUBCUT 20 units DAILY [facility] Administration Ipratropium [place] 0 gm 11/26/17 15:30 Atrovent Hfa INH Q2H PRN Shortness of Breath Latanoprost 0 ml 11/26/17 20:00 11/27/17 19:43 Xalatan 0.005% Ophth Soln EYEBOTH 1 drop BEDTIME [facility] Administration Lisinopril 2.5 mg 11/27/17 08:00 11/28/17 07:50 Prinivil PO 2.5 mg DAILY [facility] Administration Non-Formulary Medication 1 drop 11/26/17 18:00 11/28/17 07:49 Brinzolamide [Azopt] EYEBOTH Not Given BID [facility] Omeprazole 20 mg 11/27/17 07:30 11/28/17 07:57 Omeprazole PO 20 mg ACBREAKFAST [facility] Administration Sodium Chloride 10 ml 11/26/17 13:34 11/28/17 07:56 Saline Flush FLUSH 10 ml ASDIRECTED PRN Administration Keep Vein Open Spironolactone 25 mg 11/27/17 08:00 11/28/17 07:54 Aldactone PO 25 mg DAILY [facility] Administration Discontinued Medications Generic Name Dose Route Start Last Admin Trade Name Freq PRN Reason Stop Dose Admin Fluconazole 150 mg 11/27/17 20:26 11/27/17 21:35 Diflucan PO 11/27/17 20:27 150 mg ONETIME ONE Administration Furosemide 40 mg 11/26/17 14:17 11/26/17 14:22 Lasix IVPUSH 11/26/17 14:18 40 mg NOW ONE Administration Furosemide 40 mg 11/27/17 12:00 Lasix IVPUSH DAILY [facility] Insulin Aspart 10 unit 11/26/17 17:41 11/26/17 18:27 Novolog SUBCUT 11/26/17 17:42 10 units ONETIME ONE Administration Departure - Departure Time of Disposition: 15:00 Disposition: Admitted As Inpatient 66 Clinical Impression: CHF (congestive heart failure) - Problem List & Annotations (1) CHF (congestive heart failure) SNOMED Code(s): 99878234 Code(s): I50.9 - HEART FAILURE, UNSPECIFIED Status: Acute Priority: High Current Visit: No Onset Date: 02/21/17 Annotation/Comment:: We'll repeat labs and continue care as ordered (2) Diabetes mellitus SNOMED Code(s): 28226517 Code(s): E11.9 - TYPE 2 DIABETES MELLITUS WITHOUT COMPLICATIONS Status: Chronic Priority: Medium Current Visit: No Annotation/Comment:: Patient is a noncompliant hemoglobin A1c greater than 14 glucose this afternoon 263 will continue to monitor glucose closely and adjust medications as needed so she feels better Qualifiers: Diabetes mellitus type: type 2 Diabetes mellitus oysterman insulin use: with oysterman use Diabetes mellitus complication status: with kidney complications Diabetes mellitus complication detail: with chronic kidney disease Chronic kidney disease stage: stage 3 (moderate) Qualified Code(s): E11.22 - Type 2 diabetes mellitus with diabetic chronic kidney disease; N18.3 - Chronic kidney disease, stage 3 (moderate); 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
[2017-11-26 14:28] LABS: CHLORIDE,CL 104 mmol/L (98-107); SODIUM,NA 141 mmol/L (136-145)
[2017-11-26] MEDS ORDERED: Ipratropium 12.9 GM Inhaler INH PRN (15:30)
[2017-11-26] MEDS ORDERED: Insulin Aspart 100 Units/ML 3 ML Pen SUBCUT ONE (17:41)
[2017-11-26] MEDS: Albuterol/Ipratropium 3.0-0.5 MG/3 ML Neb Soln NEB SCH ×2 (18:27→21:33)
[2017-11-26] MEDS: Carvedilol 25 MG Tab PO SCH (18:28)
[2017-11-26] MEDS: BRINZOLAMIDE EYEBOTH SCH (18:29)
[2017-11-26] MEDS: Latanoprost 0.005% Ophth Soln 2.5 ML Bottle EYEBOTH SCH (20:22)
[2017-11-26] MEDS: atorvaSTATin 40 MG Tab PO SCH (20:22)
[2017-11-26] MEDS: Insulin Aspart 100 Units/ML 3 ML Pen SUBCUT SCH (21:33)
[2017-11-27] MEDS: Omeprazole 20 MG Cap.CR PO SCH (08:14)
[2017-11-27] MEDS: Spironolactone 25 MG Tab PO SCH (08:14)
[2017-11-27] MEDS: Aspirin 81 MG Tab.EC PO SCH (08:15)
[2017-11-27] MEDS: Lisinopril 5 MG Tab PO SCH (08:15)
[2017-11-27] MEDS: Bumetanide 1 MG Tab PO SCH (08:15)
[2017-11-27] MEDS: BRINZOLAMIDE EYEBOTH SCH ×2 (08:15→17:35)
[2017-11-27] MEDS: Carvedilol 25 MG Tab PO SCH ×2 (08:16→17:36)
[2017-11-27] MEDS: Insulin Aspart 100 Units/ML 3 ML Pen SUBCUT SCH ×4 (08:17→19:59)
[2017-11-27] MEDS: Albuterol/Ipratropium 3.0-0.5 MG/3 ML Neb Soln NEB SCH ×4 (08:19→19:43)
[2017-11-27] MEDS: Furosemide 40 MG/4 ML VIAL IVPUSH SCH (08:20)
[2017-11-27] MEDS: Insulin Glargine,Human Rec. Analog 100 Units/ML 10 ML Vial SUBCUT SCH (08:31)
--- NOTE | 2017-11-27 11:55 | PCM.PN ---
- General Info Date of Service: 11/27/17 Admission Dx/Problem (Free Text): Patient admitted with hyperglycemia and CHF Doing better less respiratory distress blood glucose returning to lower numbers initial hemoglobin A1c of greater than 14 Functional Status: Reports: Tolerating Diet, Ambulating - Review of Systems General: Reports: No Symptoms HEENT: Reports: No Symptoms Pulmonary: Reports: No Symptoms Cardiovascular: Reports: No Symptoms Gastrointestinal: Reports: No Symptoms Genitourinary: Reports: No Symptoms Musculoskeletal: Reports: No Symptoms Skin: Reports: Other (Lower extremities reveal erythema and +4 pedal edema) Neurological: Reports: No Symptoms Psychiatric: Reports: No Symptoms - Patient Data Vitals - Most Recent: Last Vital Signs Temp 97.5 F 11/27/17 08:00 Pulse 71 11/27/17 08:00 Resp 17 11/27/17 08:00 BP 149/67 H 11/27/17 08:00 Pulse Ox 97 11/27/17 08:00 Weight - Most Recent: 169 lb 14.388 oz I&O - Last 24 Hours: Intake & Output 11/26/17 11/27/17 11/27/17 22:59 06:59 14:59 Intake Total 1200 50 300 Output Total 200 Balance 1200 50 100 Lab Results Last 24 Hours: Laboratory Results - last 24 hr 11/26/17 11/26/17 11/26/17 Range/Units 13:50 13:50 13:50 WBC 9.7 (4.0-10.2) K/uL RBC 4.29 (3.77-5.09) M/uL Hgb 12.5 (11.7-15.5) g/dL Hct 39.4 (34.0-46.0) % MCV 91.8 (84.0-98.0) fL MCH 29.1 (28.2-33.3) pg MCHC 31.7 (31.7-36.0) g/dL RDW 13.2 (11.2-14.1) % Plt Count 189 (150-350) K/uL Neut % (Auto) 69.4 (45.0-80.0) % Lymph % (Auto) 22.0 (10.0-50.0) % [place] % (Auto) 6.3 (2.0-14.0) % Eos % (Auto) 2.0 (0.0-5.0) % Baso % (Auto) 0.3 (0.0-2.0) % Neut # (Auto) 6.74 (1.40-7.00) K/uL Lymph # (Auto) 2.13 (0.50-3.50) K/uL [place] # (Auto) 0.61 (0.00-1.00) K/uL Eos # (Auto) 0.19 (0.00-0.50) K/uL Baso # (Auto) 0.03 (0.00-0.20) K/uL Sodium 141 (136-145) mmol/L Potassium 3.9 (3.5-5.1) mmol/L Chloride 104 (98-107) mmol/L Carbon Dioxide 28.9 (21.0-32.0) mmol/L BUN 16 (7-18) mg/dL Creatinine 0.76 (0.51-1.17) mg/dL Est Cr Clr Drug Dosing 53.53 mL/min Estimated GFR (MDRD) > 60 mL/min Glucose 536 H* (74-106) mg/dL POC Glucose (65-110) mg/dl Hemoglobin A1c (4.3-5.7) % Lactic Acid (0.4-2.0) mmol/L Calcium 8.3 L (8.5-10.1) mg/dL Total Bilirubin 0.7 (0.2-1.0) mg/dL AST 16 (15-37) U/L ALT 17 (12-78) U/L Alkaline Phosphatase 152 H (46-116) IU/L Troponin I 0.011 (0.000-0.056) ng/mL NT-Pro-B Natriuret Pep 38748 H (0-125) pg/mL Total Protein 6.6 (6.4-8.2) g/dL Albumin 2.4 L (3.4-5.0) g/dL Specimen Type Urinvoid Urine Color Yellow Urine Appearance Cloudy Urine pH 5.5 (5.0-9.0) Ur Specific May 1.020 (1.005-1.030) Urine Protein >=300 H (NEGATIVE) mg/dL Urine Glucose (UA) 500 H (NEGATIVE) mg/dL Urine Ketones Negative (NEGATIVE) mg/dL Urine Occult Blood Moderate H (NEGATIVE) Urine Nitrite Negative (NEGATIVE) Urine Bilirubin Negative (NEGATIVE) Urine Urobilinogen 0.2 (0.2-1.0) E.U./dL Ur Leukocyte Esterase Trace H (NEGATIVE) Urine RBC >100 H /HPF Urine WBC >100 H /HPF Ur Epithelial Cells Moderate H /LPF Urine Bacteria Many H (NONE TO FEW) /HPF Ketones 11/26/17 11/26/17 11/26/17 Range/Units 13:50 13:50 13:50 WBC (4.0-10.2) K/uL RBC (3.77-5.09) M/uL Hgb (11.7-15.5) g/dL Hct (34.0-46.0) % MCV (84.0-98.0) fL MCH (28.2-33.3) pg MCHC (31.7-36.0) g/dL RDW (11.2-14.1) % Plt Count (150-350) K/uL Neut % (Auto) (45.0-80.0) % Lymph % (Auto) (10.0-50.0) % [place] % (Auto) (2.0-14.0) % Eos % (Auto) (0.0-5.0) % Baso % (Auto) (0.0-2.0) % Neut # (Auto) (1.40-7.00) K/uL Lymph # (Auto) (0.50-3.50) K/uL [place] # (Auto) (0.00-1.00) K/uL Eos # (Auto) (0.00-0.50) K/uL Baso # (Auto) (0.00-0.20) K/uL Sodium (136-145) mmol/L Potassium (3.5-5.1) mmol/L Chloride (98-107) mmol/L Carbon Dioxide (21.0-32.0) mmol/L BUN (7-18) mg/dL Creatinine (0.51-1.17) mg/dL Est Cr Clr Drug Dosing mL/min Estimated GFR (MDRD) mL/min Glucose (74-106) mg/dL POC Glucose (65-110) mg/dl Hemoglobin A1c > 14.0 H (4.3-5.7) % Lactic Acid 1.1 (0.4-2.0) mmol/L Calcium (8.5-10.1) mg/dL Total Bilirubin (0.2-1.0) mg/dL AST (15-37) U/L ALT (12-78) U/L Alkaline Phosphatase (46-116) IU/L Troponin I (0.000-0.056) ng/mL NT-Pro-B Natriuret Pep (0-125) pg/mL Total Protein (6.4-8.2) g/dL Albumin (3.4-5.0) g/dL Specimen Type Urine Color Urine Appearance Urine pH (5.0-9.0) Ur Specific May (1.005-1.030) Urine Protein (NEGATIVE) mg/dL Urine Glucose (UA) (NEGATIVE) mg/dL Urine Ketones (NEGATIVE) mg/dL Urine Occult Blood (NEGATIVE) Urine Nitrite (NEGATIVE) Urine Bilirubin (NEGATIVE) Urine Urobilinogen (0.2-1.0) E.U./dL Ur Leukocyte Esterase (NEGATIVE) Urine RBC /HPF Urine WBC /HPF Ur Epithelial Cells /LPF Urine Bacteria (NONE TO FEW) /HPF Ketones Negative 11/26/17 11/26/17 11/27/17 Range/Units 17:16 21:01 07:43 WBC (4.0-10.2) K/uL RBC (3.77-5.09) M/uL Hgb (11.7-15.5) g/dL Hct (34.0-46.0) % MCV (84.0-98.0) fL MCH (28.2-33.3) pg MCHC (31.7-36.0) g/dL RDW (11.2-14.1) % Plt Count (150-350) K/uL Neut % (Auto) (45.0-80.0) % Lymph % (Auto) (10.0-50.0) % [place] % (Auto) (2.0-14.0) % Eos % (Auto) (0.0-5.0) % Baso % (Auto) (0.0-2.0) % Neut # (Auto) (1.40-7.00) K/uL Lymph # (Auto) (0.50-3.50) K/uL [place] # (Auto) (0.00-1.00) K/uL Eos # (Auto) (0.00-0.50) K/uL Baso # (Auto) (0.00-0.20) K/uL Sodium (136-145) mmol/L Potassium (3.5-5.1) mmol/L Chloride (98-107) mmol/L Carbon Dioxide (21.0-32.0) mmol/L BUN (7-18) mg/dL Creatinine (0.51-1.17) mg/dL Est Cr Clr Drug Dosing mL/min Estimated GFR (MDRD) mL/min Glucose (74-106) mg/dL POC Glucose 407 H* 326 H* 173 H (65-110) mg/dl Hemoglobin A1c (4.3-5.7) % Lactic Acid (0.4-2.0) mmol/L Calcium (8.5-10.1) mg/dL Total Bilirubin (0.2-1.0) mg/dL AST (15-37) U/L ALT (12-78) U/L Alkaline Phosphatase (46-116) IU/L Troponin I (0.000-0.056) ng/mL NT-Pro-B Natriuret Pep (0-125) pg/mL Total Protein (6.4-8.2) g/dL Albumin (3.4-5.0) g/dL Specimen Type Urine Color Urine Appearance Urine pH (5.0-9.0) Ur Specific May (1.005-1.030) Urine Protein (NEGATIVE) mg/dL Urine Glucose (UA) (NEGATIVE) mg/dL Urine Ketones (NEGATIVE) mg/dL Urine Occult Blood (NEGATIVE) Urine Nitrite (NEGATIVE) Urine Bilirubin (NEGATIVE) Urine Urobilinogen (0.2-1.0) E.U./dL Ur Leukocyte Esterase (NEGATIVE) Urine RBC /HPF Urine WBC /HPF Ur Epithelial Cells /LPF Urine Bacteria (NONE TO FEW) /HPF Ketones 11/27/17 Range/Units 11:41 WBC (4.0-10.2) K/uL RBC (3.77-5.09) M/uL Hgb (11.7-15.5) g/dL Hct (34.0-46.0) % MCV (84.0-98.0) fL MCH (28.2-33.3) pg MCHC (31.7-36.0) g/dL RDW (11.2-14.1) % Plt Count (150-350) K/uL Neut % (Auto) (45.0-80.0) % Lymph % (Auto) (10.0-50.0) % [place] % (Auto) (2.0-14.0) % Eos % (Auto) (0.0-5.0) % Baso % (Auto) (0.0-2.0) % Neut # (Auto) (1.40-7.00) K/uL Lymph # (Auto) (0.50-3.50) K/uL [place] # (Auto) (0.00-1.00) K/uL Eos # (Auto) (0.00-0.50) K/uL Baso # (Auto) (0.00-0.20) K/uL Sodium (136-145) mmol/L Potassium (3.5-5.1) mmol/L Chloride (98-107) mmol/L Carbon Dioxide (21.0-32.0) mmol/L BUN (7-18) mg/dL Creatinine (0.51-1.17) mg/dL Est Cr Clr Drug Dosing mL/min Estimated GFR (MDRD) mL/min Glucose (74-106) mg/dL POC Glucose 263 H* (65-110) mg/dl Hemoglobin A1c (4.3-5.7) % Lactic Acid (0.4-2.0) mmol/L Calcium (8.5-10.1) mg/dL Total Bilirubin (0.2-1.0) mg/dL AST (15-37) U/L ALT (12-78) U/L Alkaline Phosphatase (46-116) IU/L Troponin I (0.000-0.056) ng/mL NT-Pro-B Natriuret Pep (0-125) pg/mL Total Protein (6.4-8.2) g/dL Albumin (3.4-5.0) g/dL Specimen Type Urine Color Urine Appearance Urine pH (5.0-9.0) Ur Specific May (1.005-1.030) Urine Protein (NEGATIVE) mg/dL Urine Glucose (UA) (NEGATIVE) mg/dL Urine Ketones (NEGATIVE) mg/dL Urine Occult Blood (NEGATIVE) Urine Nitrite (NEGATIVE) Urine Bilirubin (NEGATIVE) Urine Urobilinogen (0.2-1.0) E.U./dL Ur Leukocyte Esterase (NEGATIVE) Urine RBC /HPF Urine WBC /HPF Ur Epithelial Cells /LPF Urine Bacteria (NONE TO FEW) /HPF Ketones Med Orders - Current: Current Medications Albuterol/Ipratropium (Duoneb 3.0-0.5 Mg/3 Ml) 3 ml NEB QID [facility] Last Admin: 11/27/17 08:19 Dose: 3 ml Aspirin (Halfprin) 81 mg PO DAILY [facility] Last Admin: 11/27/17 08:15 Dose: 81 mg Atorvastatin Calcium (Lipitor) 40 mg PO BEDTIME [facility] Last Admin: 11/26/17 20:22 Dose: 40 mg Bumetanide (Bumex) 1 mg PO DAILY [facility] Last Admin: 11/27/17 08:15 Dose: 1 mg Carvedilol (Coreg) 25 mg PO BID [facility] Last Admin: 11/27/17 08:16 Dose: 25 mg Furosemide (Lasix) 40 mg IVPUSH DAILY [facility] Last Admin: 11/27/17 08:20 Dose: 40 mg Furosemide (Lasix) 40 mg IVPUSH DAILY [facility] Insulin Aspart (Novolog) 0 unit SUBCUT QIDACANDBED [facility]; Protocol Last Admin: 11/27/17 08:17 Dose: 2 units Insulin Glargine (Lantus) 20 unit SUBCUT DAILY [facility] Last Admin: 11/27/17 08:31 Dose: 20 units Ipratropium [place] (Atrovent Hfa) 0 gm INH Q2H PRN PRN Reason: Shortness of Breath Latanoprost (Xalatan 0.005% Ophth Soln) 0 ml EYEBOTH BEDTIME [facility] Last Admin: 11/26/17 20:22 Dose: 1 drop Lisinopril (Prinivil) 2.5 mg PO DAILY [facility] Last Admin: 11/27/17 08:15 Dose: 2.5 mg Non-Formulary Medication (Brinzolamide [Azopt]) 1 drop EYEBOTH BID [facility] Last Admin: 11/27/17 08:15 Dose: Not Given Omeprazole (Omeprazole) 20 mg PO ACBREAKFAST [facility] Last Admin: 11/27/17 08:14 Dose: 20 mg Sodium Chloride (Saline Flush) 10 ml FLUSH ASDIRECTED PRN PRN Reason: Keep Vein Open Last Admin: 11/26/17 14:22 Dose: 10 ml Spironolactone (Aldactone) 25 mg PO DAILY [facility] Last Admin: 11/27/17 08:14 Dose: 25 mg Discontinued Medications Furosemide (Lasix) 40 mg IVPUSH NOW ONE Stop: 11/26/17 14:18 Last Admin: 11/26/17 14:22 Dose: 40 mg Insulin Aspart (Novolog) 10 unit SUBCUT ONETIME ONE Stop: 11/26/17 17:42 Last Admin: 11/26/17 18:27 Dose: 10 units - Problem List & Annotations (1) CHF (congestive heart failure) SNOMED Code(s): 26050853 Code(s): I50.9 - HEART FAILURE, UNSPECIFIED Status: Acute Priority: High Current Visit: No Onset Date: 02/21/17 Qualifiers: Qualified Code(s): I50.9 - Heart failure, unspecified Annotation/Comment:: We'll repeat labs and continue care as ordered (2) Diabetes mellitus SNOMED Code(s): 58471458 Code(s): E11.9 - TYPE 2 DIABETES MELLITUS WITHOUT COMPLICATIONS Status: Chronic Priority: Medium Current Visit: No Qualifiers: Diabetes mellitus type: type 2 Diabetes mellitus assisted insulin use: with assisted use Diabetes mellitus complication status: with kidney complications Diabetes mellitus complication detail: with chronic kidney disease Chronic kidney disease stage: stage 3 (moderate) Qualified Code(s): E11.22 - Type 2 diabetes mellitus with diabetic chronic kidney disease; N18.3 - Chronic kidney disease, stage 3 (moderate); N18.3 - Chronic kidney disease, stage 3 (moderate); Z79.4 - residential (current) use of insulin; Z79.4 - residential (current) use of insulin; Z79.4 - residential (current) use of insulin; 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 Annotation/Comment:: Patient is a noncompliant hemoglobin A1c greater than 14 glucose this afternoon 263 will continue to monitor glucose tightly together and better numbers patient overall feels much better - Problem List Review Problem List Initiated/Reviewed/Updated: Yes - My Orders Last 24 Hours: My Active Orders 11/26/17 13:33 Oxygen Therapy [RC] 2300 Pulse Oximetry [RC] .PRN Saline Lock Insert [OM.PC] Stat 11/26/17 13:34 Sodium Chloride 0.9% [Saline Flush] 10 ml FLUSH ASDIRECTED PRN 11/26/17 13:35 EKG Documentation Completion [RC] ASDIRECTED 11/26/17 13:36 Chest 2V [CR] Stat 11/26/17 13:50 UA W/MICROSCOPIC [URIN] Stat 11/26/17 15:15 Resuscitation Status Routine 11/26/17 15:19 Patient Status [ADT] Routine 11/26/17 15:23 Cardiac Monitoring [RC] Q2HR 11/26/17 15:26 Ambulate [RC] .PRN Bedrest Bathroom Privileges [RC] .PRN May Shower [RC] .PRN Up to Chair [RC] .PRN 11/26/17 15:27 Patient Status [ADT] Routine 11/26/17 15:29 Diabetes Education [RC] DAILY 11/26/17 15:30 Ipratropium [Atrovent HFA] 0 gm INH Q2H PRN 11/26/17 16:00 Albuterol/Ipratropium [DuoNeb 3.0-0.5 MG/3 ML] 3 ml NEB QID Glucose Management Sub Q Reflex [OM.PC] QID 11/26/17 17:00 Blood Glucose Check, Bedside [RC] WITHMEALSANDBED 11/26/17 18:00 Brinzolamide [Azopt] 1 drop EYEBOTH BID Carvedilol [Coreg] 25 mg PO BID 11/26/17 20:00 Latanoprost [Xalatan 0.005% Ophth Soln] 0 ml EYEBOTH BEDTIME atorvaSTATin [Lipitor] 40 mg PO BEDTIME Glucose Management Sub Q Reflex [OM.PC] QID 11/26/17 21:00 Insulin Aspart [NovoLOG] See Protocol SUBCUT QIDACANDBED 11/26/17 Dinner [place] [employer] Diet [DIET] [place] [employer] Diet [DIET] 11/27/17 05:04 Communication Order [RC] DAILY 11/27/17 07:30 Omeprazole 20 mg PO ACBREAKFAST 11/27/17 08:00 Aspirin [Halfprin] 81 mg PO DAILY Bumetanide [Bumex] 1 mg PO DAILY Furosemide [Lasix] 40 mg IVPUSH DAILY Insulin Glarg,Human.Rec.Analog [LantUS] 20 unit SUBCUT DAILY Lisinopril [Prinivil] 2.5 mg PO DAILY Spironolactone [Aldactone] 25 mg PO DAILY 11/27/17 11:46 BASIC METABOLIC PANEL,BMP [CHEM] Stat CBC WITH AUTO DIFF [HEME] Stat 11/27/17 12:00 Furosemide [Lasix] 40 mg IVPUSH DAILY - 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
[2017-11-27] MEDS ORDERED: Furosemide 40 MG/4 ML VIAL IVPUSH SCH (12:00)
[2017-11-27] MEDS: atorvaSTATin 40 MG Tab PO SCH (19:42)
[2017-11-27] MEDS: Latanoprost 0.005% Ophth Soln 2.5 ML Bottle EYEBOTH SCH (19:43)
[2017-11-27] MEDS ORDERED: Fluconazole 100 MG Tab PO ONE (20:26)
[2017-11-27] MEDS: Sodium Chloride 0.9% 10 ML Syringe FLUSH PRN (23:55)
[2017-11-28] MEDS: Insulin Glargine,Human Rec. Analog 100 Units/ML 10 ML Vial SUBCUT SCH (07:44)
[2017-11-28] MEDS: BRINZOLAMIDE EYEBOTH SCH ×2 (07:49→17:23)
[2017-11-28] MEDS: Lisinopril 5 MG Tab PO SCH (07:50)
[2017-11-28] MEDS: Aspirin 81 MG Tab.EC PO SCH (07:52)
[2017-11-28] MEDS: Bumetanide 1 MG Tab PO SCH (07:53)
[2017-11-28] MEDS: Carvedilol 25 MG Tab PO SCH ×2 (07:53→17:22)
[2017-11-28] MEDS: Albuterol/Ipratropium 3.0-0.5 MG/3 ML Neb Soln NEB SCH ×4 (07:54→20:06)
[2017-11-28] MEDS: Spironolactone 25 MG Tab PO SCH (07:54)
[2017-11-28] MEDS: Insulin Aspart 100 Units/ML 3 ML Pen SUBCUT SCH ×4 (07:54→20:07)
[2017-11-28] MEDS: Sodium Chloride 0.9% 10 ML Syringe FLUSH PRN ×2 (07:56→20:09)
[2017-11-28] MEDS: Furosemide 40 MG/4 ML VIAL IVPUSH SCH (07:56)
[2017-11-28] MEDS: Omeprazole 20 MG Cap.CR PO SCH (07:57)
[2017-11-28] MEDS ORDERED: Insulin Glargine,Human Rec. Analog 100 Units/ML 10 ML Vial SUBCUT STA (11:08)
--- NOTE | 2017-11-28 11:13 | PCM.PN ---
- General Info Date of Service: 11/28/17 - Review of Systems General: Reports: Weakness (improving), Fatigue (improving) HEENT: Reports: No Symptoms Pulmonary: Reports: Shortness of Breath (improving) Cardiovascular: Reports: Dyspnea on Exertion. Denies: Chest Pain Gastrointestinal: Reports: No Symptoms Genitourinary: Reports: No Symptoms Musculoskeletal: Reports: No Symptoms Skin: Reports: No Symptoms Neurological: Reports: No Symptoms Psychiatric: Reports: No Symptoms - Patient Data Vitals - Most Recent: Last Vital Signs Temp 99.1 F 11/28/17 07:42 Pulse 83 11/28/17 07:53 Resp 20 11/28/17 07:42 BP 138/79 11/28/17 07:53 Pulse Ox 94 L 11/28/17 07:42 Weight - Most Recent: 169 lb 14.388 oz I&O - Last 24 Hours: Intake & Output 11/27/17 11/28/17 11/28/17 22:59 06:59 14:59 Intake Total 640 Output Total 400 Balance 640 -400 Lab Results Last 24 Hours: Laboratory Results - last 24 hr 11/27/17 11/27/17 11/27/17 Range/Units 11:41 12:23 12:23 WBC 9.3 (4.0-10.2) K/uL RBC 4.39 (3.77-5.09) M/uL Hgb 12.9 (11.7-15.5) g/dL Hct 39.9 (34.0-46.0) % MCV 90.9 (84.0-98.0) fL MCH 29.4 (28.2-33.3) pg MCHC 32.3 (31.7-36.0) g/dL RDW 13.2 (11.2-14.1) % Plt Count 183 (150-350) K/uL Neut % (Auto) 62.5 (45.0-80.0) % Lymph % (Auto) 30.6 (10.0-50.0) % [place] % (Auto) 4.6 (2.0-14.0) % Eos % (Auto) 2.1 (0.0-5.0) % Baso % (Auto) 0.2 (0.0-2.0) % Neut # (Auto) 5.81 (1.40-7.00) K/uL Lymph # (Auto) 2.85 (0.50-3.50) K/uL [place] # (Auto) 0.43 (0.00-1.00) K/uL Eos # (Auto) 0.20 (0.00-0.50) K/uL Baso # (Auto) 0.02 (0.00-0.20) K/uL Sodium 142 (136-145) mmol/L Potassium 3.5 (3.5-5.1) mmol/L Chloride 104 (98-107) mmol/L Carbon Dioxide 31.4 (21.0-32.0) mmol/L BUN 20 H (7-18) mg/dL Creatinine 1.02 (0.51-1.17) mg/dL Est Cr Clr Drug Dosing 40.18 mL/min Estimated GFR (MDRD) 53 mL/min Glucose 300 H (74-106) mg/dL POC Glucose 263 H* (65-110) mg/dl Calcium 8.5 (8.5-10.1) mg/dL 11/27/17 11/28/17 11/28/17 Range/Units 19:41 07:14 10:54 WBC (4.0-10.2) K/uL RBC (3.77-5.09) M/uL Hgb (11.7-15.5) g/dL Hct (34.0-46.0) % MCV (84.0-98.0) fL MCH (28.2-33.3) pg MCHC (31.7-36.0) g/dL RDW (11.2-14.1) % Plt Count (150-350) K/uL Neut % (Auto) (45.0-80.0) % Lymph % (Auto) (10.0-50.0) % [place] % (Auto) (2.0-14.0) % Eos % (Auto) (0.0-5.0) % Baso % (Auto) (0.0-2.0) % Neut # (Auto) (1.40-7.00) K/uL Lymph # (Auto) (0.50-3.50) K/uL [place] # (Auto) (0.00-1.00) K/uL Eos # (Auto) (0.00-0.50) K/uL Baso # (Auto) (0.00-0.20) K/uL Sodium (136-145) mmol/L Potassium (3.5-5.1) mmol/L Chloride (98-107) mmol/L Carbon Dioxide (21.0-32.0) mmol/L BUN (7-18) mg/dL Creatinine (0.51-1.17) mg/dL Est Cr Clr Drug Dosing mL/min Estimated GFR (MDRD) mL/min Glucose (74-106) mg/dL POC Glucose 317 H* 227 H 300 H* (65-110) mg/dl Calcium (8.5-10.1) mg/dL Med Orders - Current: Current Medications Albuterol/Ipratropium (Duoneb 3.0-0.5 Mg/3 Ml) 3 ml NEB QID [facility] Last Admin: 11/28/17 07:54 Dose: 3 ml Aspirin (Halfprin) 81 mg PO DAILY [facility] Last Admin: 11/28/17 07:52 Dose: 81 mg Atorvastatin Calcium (Lipitor) 40 mg PO BEDTIME [facility] Last Admin: 11/27/17 19:42 Dose: 40 mg Bumetanide (Bumex) 1 mg PO DAILY [facility] Last Admin: 11/28/17 07:53 Dose: 1 mg Carvedilol (Coreg) 25 mg PO BID [facility] Last Admin: 11/28/17 07:53 Dose: 25 mg Furosemide (Lasix) 40 mg IVPUSH DAILY [facility] Last Admin: 11/28/17 07:56 Dose: 40 mg Insulin Aspart (Novolog) 0 unit SUBCUT QIDACANDBED [facility]; Protocol Last Admin: 11/28/17 07:54 Dose: 4 units Insulin Glargine (Lantus) 40 unit SUBCUT DAILY [facility] Insulin Glargine (Lantus) 20 unit SUBCUT NOW STA Stop: 11/28/17 11:09 Ipratropium [place] (Atrovent Hfa) 0 gm INH Q2H PRN PRN Reason: Shortness of Breath Latanoprost (Xalatan 0.005% Ophth Soln) 0 ml EYEBOTH BEDTIME [facility] Last Admin: 11/27/17 19:43 Dose: 1 drop Lisinopril (Prinivil) 2.5 mg PO DAILY [facility] Last Admin: 11/28/17 07:50 Dose: 2.5 mg Non-Formulary Medication (Brinzolamide [Azopt]) 1 drop EYEBOTH BID [facility] Last Admin: 11/28/17 07:49 Dose: Not Given Omeprazole (Omeprazole) 20 mg PO ACBREAKFAST [facility] Last Admin: 11/28/17 07:57 Dose: 20 mg Sodium Chloride (Saline Flush) 10 ml FLUSH ASDIRECTED PRN PRN Reason: Keep Vein Open Last Admin: 11/28/17 07:56 Dose: 10 ml Spironolactone (Aldactone) 25 mg PO DAILY [facility] Last Admin: 11/28/17 07:54 Dose: 25 mg Discontinued Medications Fluconazole (Diflucan) 150 mg PO ONETIME ONE Stop: 11/27/17 20:27 Last Admin: 11/27/17 21:35 Dose: 150 mg Furosemide (Lasix) 40 mg IVPUSH NOW ONE Stop: 11/26/17 14:18 Last Admin: 11/26/17 14:22 Dose: 40 mg Furosemide (Lasix) 40 mg IVPUSH DAILY [facility] Insulin Aspart (Novolog) 10 unit SUBCUT ONETIME ONE Stop: 11/26/17 17:42 Last Admin: 11/26/17 18:27 Dose: 10 units Insulin Glargine (Lantus) 20 unit SUBCUT DAILY [facility] Last Admin: 11/28/17 07:44 Dose: 20 units - Exam General: Alert, Oriented HEENT: Pupils Equal, Pupils Reactive, EOMI, Mucous Membr. Moist/[place] Neck: Supple Lungs: Clear to Auscultation, Normal Respiratory Effort Cardiovascular: Regular Rate, Regular Rhythm GI/Abdominal Exam: Normal Bowel Sounds, Soft, Non-Tender, No Organomegaly, No Distention, No Abnormal Bruit, No Mass, Pelvis Stable (Female) Exam: Deferred Back Exam: Normal Inspection, Full Range of Motion Extremities: Normal Inspection, Normal Range of Motion, Non-Tender, No Pedal Edema, Normal Capillary Refill Skin: Warm, Dry, Intact Neurological: No New Focal Deficit Psy/Mental Status: Alert, Normal Affect, Normal Mood - Problem List & Annotations (1) CHF (congestive heart failure) SNOMED Code(s): 66000417 Code(s): I50.9 - HEART FAILURE, UNSPECIFIED Status: Acute Priority: High Current Visit: Yes Onset Date: 02/21/17 Annotation/Comment:: Labs ordered for this AM and tomorrow. Repeatchest x ray in AM. Continue care as ordered (2) Diabetes mellitus SNOMED Code(s): 34843701 Code(s): E11.9 - TYPE 2 DIABETES MELLITUS WITHOUT COMPLICATIONS Status: Chronic Priority: Medium Current Visit: No Qualifiers: Diabetes mellitus type: type 2 Diabetes mellitus shelter insulin use: with shelter use Diabetes mellitus complication status: with kidney complications Diabetes mellitus complication detail: with chronic kidney disease Chronic kidney disease stage: stage 3 (moderate) Qualified Code(s): E11.22 - Type 2 diabetes mellitus with diabetic chronic kidney disease; N18.3 - Chronic kidney disease, stage 3 (moderate); 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 Will continue on sliding scale as ordered. - Problem List Review Problem List Initiated/Reviewed/Updated: Yes - My Orders Last 24 Hours: My Active Orders 11/28/17 11:04 CMP [COMPREHENSIVE METABOLIC PN,CMP] [CHEM] Routine 11/28/17 11:08 Insulin Glarg,Human.Rec.Analog [LantUS] 20 unit SUBCUT NOW STA 11/28/17 11:15 CBC WITH AUTO DIFF [HEME] AM 11/29/17 05:11 Chest 2V [CR] Routine CBC W/O DIFF,HEMOGRAM [HEME] AM CMP [COMPREHENSIVE METABOLIC PN,CMP] [CHEM] Routine 11/29/17 08:00 Insulin Glarg,Human.Rec.Analog [LantUS] 40 unit SUBCUT DAILY
[2017-11-28] MEDS: Latanoprost 0.005% Ophth Soln 2.5 ML Bottle EYEBOTH SCH (20:06)
[2017-11-28] MEDS: atorvaSTATin 40 MG Tab PO SCH (20:06)
[2017-11-29] MEDS ORDERED: Acetaminophen 325 MG Tab PO PRN (05:33)
[2017-11-29] MEDS ORDERED: Insulin Glargine,Human Rec. Analog 100 Units/ML 10 ML Vial SUBCUT SCH (08:00)
[2017-11-29] MEDS: Omeprazole 20 MG Cap.CR PO SCH (08:15)
[2017-11-29] MEDS: Furosemide 40 MG/4 ML VIAL IVPUSH SCH (08:15)
[2017-11-29] MEDS: Bumetanide 1 MG Tab PO SCH (08:15)
[2017-11-29] MEDS: Aspirin 81 MG Tab.EC PO SCH (08:15)
[2017-11-29] MEDS: Spironolactone 25 MG Tab PO SCH (08:15)
[2017-11-29] MEDS: Albuterol/Ipratropium 3.0-0.5 MG/3 ML Neb Soln NEB SCH ×2 (08:15→11:43)
[2017-11-29] MEDS: Sodium Chloride 0.9% 10 ML Syringe FLUSH PRN (08:16)
[2017-11-29] MEDS: Insulin Aspart 100 Units/ML 3 ML Pen SUBCUT SCH ×2 (08:17→11:43)
[2017-11-29] MEDS: BRINZOLAMIDE EYEBOTH SCH (08:18)
[2017-11-29] MEDS: Lisinopril 5 MG Tab PO SCH (08:21)
[2017-11-29] MEDS: Carvedilol 25 MG Tab PO SCH (08:27)
--- NOTE | 2017-11-29 11:38 | PCM.DCSUM1 ---
Discharge Summary - Hospital Course Free Text/Narrative:: Patient is a 77-year-old diabetic who was admitted with hyperglycemia and CHF. patient has improved significantly and now is ready for discharge she is very noncompliant and I would like her to follow up closely in the clinic with her primary or Velia. Diagnosis: Stroke: No - Discharge Data Discharge Date: 11/29/17 Discharge Disposition: Home, Self-Care 01 Condition: Good - Discharge Diagnosis/Problem(s) (1) CHF (congestive heart failure) SNOMED Code(s): 02553925 ICD Code: I50.9 - HEART FAILURE, UNSPECIFIED Status: Acute Priority: High Current Visit: Yes Onset Date: 02/21/17 Problem Details: Chest X ray shows improvement. (2) Diabetes mellitus SNOMED Code(s): 86659247 ICD Code: E11.9 - TYPE 2 DIABETES MELLITUS WITHOUT COMPLICATIONS Status: Chronic Priority: Medium Current Visit: No Problem Details: blood sugars have improved. will send patient home on insulin regimen. patient needs to follow up closely with her PCP Qualifiers: Diabetes mellitus type: type 2 Diabetes mellitus fci insulin use: with fci use Diabetes mellitus complication status: with kidney complications Diabetes mellitus complication detail: with chronic kidney disease Chronic kidney disease stage: stage 3 (moderate) Qualified Code(s): E11.22 - Type 2 diabetes mellitus with diabetic chronic kidney disease; N18.3 - Chronic kidney disease, stage 3 (moderate); Z79.4 - shelter (current) use of insulin - Patient Instructions Diet: Diabetic Diet Activity: As Tolerated Showering/Bathing: May Shower - Discharge Plan *PRESCRIPTION DRUG MONITORING PROGRAM REVIEWED*: Not Applicable *COPY OF PRESCRIPTION DRUG MONITORING REPORT IN PATIENT MONSERRAT: Not Applicable Prescriptions/Med Rec: Furosemide [Lasix] 40 mg PO DAILY #30 tablet Insulin Aspart [NovoLOG] 0 unit SUBCUT QIDACANDBED #6 pen Insulin Glarg,Human.Rec.Analog [Lantus] 40 unit SUBCUT DAILY #6 pen Potassium Chloride [Klor-Con M20] 20 meq PO DAILY #30 tab.er Home Medications: Home Meds Albuterol/Ipratropium [DuoNeb 3.0-0.5 MG/3 ML] 3 ml NEB QID 02/21/17 [History] Aspirin [Halfprin] 81 mg PO DAILY 02/21/17 [History] Brinzolamide [Azopt] 1 drop EYEBOTH BID 02/21/17 [History] Carvedilol [Coreg] 25 mg PO BID 02/21/17 [History] Ipratropium [Atrovent HFA] 2 puff INH Q2H PRN 02/21/17 [History] Latanoprost [Xalatan 0.005% Ophth Soln] 1 drop EYEBOTH BEDTIME 02/21/17 [History ] Omeprazole 20 mg PO DAILY 02/21/17 [History] atorvaSTATin Calcium [Atorvastatin Calcium] 40 mg PO BEDTIME 02/21/17 [History] Bumetanide 1 mg PO DAILY 04/13/17 [History] Spironolactone [Aldactone] 25 mg PO DAILY 04/13/17 [History] Lisinopril 2.5 mg PO DAILY 11/26/17 [History] Furosemide [Lasix] 40 mg PO DAILY #30 tablet 11/29/17 [Rx] Insulin Aspart [NovoLOG] 0 unit SUBCUT QIDACANDBED #6 pen 11/29/17 [Rx] Insulin Glarg,Human.Rec.Analog [Lantus] 40 unit SUBCUT DAILY #6 pen 11/29/17 [Rx ] Potassium Chloride [Klor-Con M20] 20 meq PO DAILY #30 tab.er 11/29/17 [Rx] Patient Handouts: Insulin Treatment for Diabetes, Hemoglobin A1c Test, Hyperglycemia, [id number], Urinary Frequency, Adult, Heart Failure, Easy-to- Read, Diabetes Mellitus and Nutrition Forms: ED Department Discharge Referrals: Meeta Calvo PA-C [Primary Care Provider] - - Discharge Summary/Plan Comment DC Time >30 min.: No - General Info Date of Service: 11/29/17 - Review of Systems General: Reports: Fatigue (improved) HEENT: Reports: No Symptoms Pulmonary: Reports: No Symptoms Cardiovascular: Denies: Dyspnea on Exertion Gastrointestinal: Reports: No Symptoms Genitourinary: Reports: No Symptoms Musculoskeletal: Reports: No Symptoms Skin: Reports: No Symptoms Neurological: Reports: No Symptoms Psychiatric: Reports: No Symptoms - Patient Data Vitals - Most Recent: Last Vital Signs Temp 97.9 F 11/29/17 08:00 Pulse 67 11/29/17 08:27 Resp 20 11/29/17 08:00 BP 129/71 11/29/17 08:27 Pulse Ox 100 11/29/17 08:00 Weight - Most Recent: 107 lb 11.2 oz I&O - Last 24 hours: Intake & Output 11/28/17 11/29/17 11/29/17 22:59 06:59 14:59 Intake Total 320 Output Total 1300 200 200 Balance -1300 -200 120 Lab Results - Last 24 hrs: Laboratory Results - last 24 hr 11/28/17 11/28/17 11/28/17 Range/Units 11:25 11:25 16:44 WBC 9.1 (4.0-10.2) K/uL RBC 4.23 (3.77-5.09) M/uL Hgb 12.4 (11.7-15.5) g/dL Hct 38.3 (34.0-46.0) % MCV 90.5 (84.0-98.0) fL MCH 29.3 (28.2-33.3) pg MCHC 32.4 (31.7-36.0) g/dL RDW 13.2 (11.2-14.1) % Plt Count 140 L (150-350) K/uL MPV (7.00-11.50) fL Neut % (Auto) 64.9 (45.0-80.0) % Lymph % (Auto) 25.9 (10.0-50.0) % [place] % (Auto) 7.0 (2.0-14.0) % Eos % (Auto) 1.9 (0.0-5.0) % Baso % (Auto) 0.3 (0.0-2.0) % Neut # (Auto) 5.93 (1.40-7.00) K/uL Lymph # (Auto) 2.37 (0.50-3.50) K/uL [place] # (Auto) 0.64 (0.00-1.00) K/uL Eos # (Auto) 0.17 (0.00-0.50) K/uL Baso # (Auto) 0.03 (0.00-0.20) K/uL Sodium 138 (136-145) mmol/L Potassium 3.8 (3.5-5.1) mmol/L Chloride 103 (98-107) mmol/L Carbon Dioxide 28.8 (21.0-32.0) mmol/L BUN 24 H (7-18) mg/dL Creatinine 1.00 (0.51-1.17) mg/dL Est Cr Clr Drug Dosing 40.98 mL/min Estimated GFR (MDRD) 54 mL/min Glucose 368 H (74-106) mg/dL POC Glucose 383 H* (65-110) mg/dl Calcium 8.3 L (8.5-10.1) mg/dL Total Bilirubin 0.5 (0.2-1.0) mg/dL AST 20 (15-37) U/L ALT 11 L (12-78) U/L Alkaline Phosphatase 91 (46-116) IU/L Total Protein 5.8 L (6.4-8.2) g/dL Albumin 2.2 L (3.4-5.0) g/dL 11/28/17 11/29/17 11/29/17 Range/Units 20:05 07:00 07:00 WBC 9.8 (4.0-10.2) K/uL RBC 3.91 (3.77-5.09) M/uL Hgb 11.4 L (11.7-15.5) g/dL Hct 35.7 (34.0-46.0) % MCV 91.3 (84.0-98.0) fL MCH 29.2 (28.2-33.3) pg MCHC 31.9 (31.7-36.0) g/dL RDW 13.1 (11.2-14.1) % Plt Count 161 (150-350) K/uL MPV 10.60 (7.00-11.50) fL Neut % (Auto) (45.0-80.0) % Lymph % (Auto) (10.0-50.0) % [place] % (Auto) (2.0-14.0) % Eos % (Auto) (0.0-5.0) % Baso % (Auto) (0.0-2.0) % Neut # (Auto) (1.40-7.00) K/uL Lymph # (Auto) (0.50-3.50) K/uL [place] # (Auto) (0.00-1.00) K/uL Eos # (Auto) (0.00-0.50) K/uL Baso # (Auto) (0.00-0.20) K/uL Sodium 142 (136-145) mmol/L Potassium 3.3 L (3.5-5.1) mmol/L Chloride 106 (98-107) mmol/L Carbon Dioxide 31.3 (21.0-32.0) mmol/L BUN 23 H (7-18) mg/dL Creatinine 1.00 (0.51-1.17) mg/dL Est Cr Clr Drug Dosing 40.98 mL/min Estimated GFR (MDRD) 54 mL/min Glucose 159 H (74-106) mg/dL POC Glucose 242 H (65-110) mg/dl Calcium 8.0 L (8.5-10.1) mg/dL Total Bilirubin 0.6 (0.2-1.0) mg/dL AST 18 (15-37) U/L ALT 12 (12-78) U/L Alkaline Phosphatase 81 (46-116) IU/L Total Protein 5.5 L (6.4-8.2) g/dL Albumin 2.1 L (3.4-5.0) g/dL 11/29/17 Range/Units 07:24 WBC (4.0-10.2) K/uL RBC (3.77-5.09) M/uL Hgb (11.7-15.5) g/dL Hct (34.0-46.0) % MCV (84.0-98.0) fL MCH (28.2-33.3) pg MCHC (31.7-36.0) g/dL RDW (11.2-14.1) % Plt Count (150-350) K/uL MPV (7.00-11.50) fL Neut % (Auto) (45.0-80.0) % Lymph % (Auto) (10.0-50.0) % [place] % (Auto) (2.0-14.0) % Eos % (Auto) (0.0-5.0) % Baso % (Auto) (0.0-2.0) % Neut # (Auto) (1.40-7.00) K/uL Lymph # (Auto) (0.50-3.50) K/uL [place] # (Auto) (0.00-1.00) K/uL Eos # (Auto) (0.00-0.50) K/uL Baso # (Auto) (0.00-0.20) K/uL Sodium (136-145) mmol/L Potassium (3.5-5.1) mmol/L Chloride (98-107) mmol/L Carbon Dioxide (21.0-32.0) mmol/L BUN (7-18) mg/dL Creatinine (0.51-1.17) mg/dL Est Cr Clr Drug Dosing mL/min Estimated GFR (MDRD) mL/min Glucose (74-106) mg/dL POC Glucose 139 H (65-110) mg/dl Calcium (8.5-10.1) mg/dL Total Bilirubin (0.2-1.0) mg/dL AST (15-37) U/L ALT (12-78) U/L Alkaline Phosphatase (46-116) IU/L Total Protein (6.4-8.2) g/dL Albumin (3.4-5.0) g/dL Med Orders - Current: Current Medications Acetaminophen (Tylenol) 650 mg PO Q4H PRN PRN Reason: fever/Pain Last Admin: 11/29/17 05:47 Dose: 650 mg Albuterol/Ipratropium (Duoneb 3.0-0.5 Mg/3 Ml) 3 ml NEB QID [facility] Last Admin: 11/29/17 08:15 Dose: 3 ml Aspirin (Halfprin) 81 mg PO DAILY [facility] Last Admin: 11/29/17 08:15 Dose: 81 mg Atorvastatin Calcium (Lipitor) 40 mg PO BEDTIME [facility] Last Admin: 11/28/17 20:06 Dose: 40 mg Bumetanide (Bumex) 1 mg PO DAILY [facility] Last Admin: 11/29/17 08:15 Dose: 1 mg Carvedilol (Coreg) 25 mg PO BID [facility] Last Admin: 11/29/17 08:27 Dose: 25 mg Furosemide (Lasix) 40 mg IVPUSH DAILY [facility] Last Admin: 11/29/17 08:15 Dose: 40 mg Insulin Aspart (Novolog) 0 unit SUBCUT QIDACANDBED [facility]; Protocol Last Admin: 11/29/17 08:17 Dose: Not Given Insulin Glargine (Lantus) 40 unit SUBCUT DAILY [facility] Last Admin: 11/29/17 08:19 Dose: 40 unit Ipratropium [place] (Atrovent Hfa) 0 gm INH Q2H PRN PRN Reason: Shortness of Breath Latanoprost (Xalatan 0.005% Ophth Soln) 0 ml EYEBOTH BEDTIME [facility] Last Admin: 11/28/17 20:06 Dose: 1 drop Lisinopril (Prinivil) 2.5 mg PO DAILY [facility] Last Admin: 11/29/17 08:21 Dose: 2.5 mg Non-Formulary Medication (Brinzolamide [Azopt]) 1 drop EYEBOTH BID [facility] Last Admin: 11/29/17 08:18 Dose: Not Given Omeprazole (Omeprazole) 20 mg PO ACBREAKFAST [facility] Last Admin: 11/29/17 08:15 Dose: 20 mg Sodium Chloride (Saline Flush) 10 ml FLUSH ASDIRECTED PRN PRN Reason: Keep Vein Open Last Admin: 11/29/17 08:16 Dose: 10 ml Spironolactone (Aldactone) 25 mg PO DAILY [facility] Last Admin: 11/29/17 08:15 Dose: 25 mg Discontinued Medications Fluconazole (Diflucan) 150 mg PO ONETIME ONE Stop: 11/27/17 20:27 Last Admin: 11/27/17 21:35 Dose: 150 mg Furosemide (Lasix) 40 mg IVPUSH NOW ONE Stop: 11/26/17 14:18 Last Admin: 11/26/17 14:22 Dose: 40 mg Furosemide (Lasix) 40 mg IVPUSH DAILY [facility] Insulin Aspart (Novolog) 10 unit SUBCUT ONETIME ONE Stop: 11/26/17 17:42 Last Admin: 11/26/17 18:27 Dose: 10 units Insulin Glargine (Lantus) 20 unit SUBCUT DAILY [facility] Last Admin: 11/28/17 07:44 Dose: 20 units Insulin Glargine (Lantus) 20 unit SUBCUT NOW STA Stop: 11/28/17 11:09 Last Admin: 11/28/17 11:39 Dose: 20 units - Exam General: Reports: Alert, Oriented HEENT: Reports: Pupils Equal, Pupils Reactive, EOMI, Mucous Membr. Moist/[place] Neck: Reports: Supple Lungs: Reports: Clear to Auscultation, Normal Respiratory Effort Cardiovascular: Reports: Regular Rate, Regular Rhythm GI/Abdominal Exam: Normal Bowel Sounds, Soft, Non-Tender, No Organomegaly, No Distention, No Abnormal Bruit, No Mass, Pelvis Stable (Female) Exam: Deferred Rectal (Female) Exam: Deferred Back Exam: Reports: Normal Inspection, Full Range of Motion Extremities: Normal Inspection, Normal Range of Motion, Non-Tender, No Pedal Edema, Normal Capillary Refill Skin: Reports: Warm, Dry, Intact Neurological: Reports: No New Focal Deficit Psy/Mental Status: Reports: Alert, Normal Affect, Normal Mood
== END 2017-11-29 13:50 | disposition home or self-care (01) | DRG 293 ==
LOC: LL.ED 13:23 → LL.MS 14:45 → UNDOADMIN 14:45 → LL.MS 15:19
PROVIDERS: ADMIT Family Medicine; ATTEND Family Medicine
DX: I13.0 Hypertensive heart and chronic kidney disease with heart failure and stage 1 through stage 4 chronic kidney disease, or unspecified chronic kidney disease (principal); E11.65 Type 2 diabetes mellitus with hyperglycemia; I42.9 Cardiomyopathy, unspecified; I50.9 Heart failure, unspecified; E11.22 Type 2 diabetes mellitus with diabetic chronic kidney disease; N18.3 Chronic kidney disease, stage 3 (moderate); E11.21 Type 2 diabetes mellitus with diabetic nephropathy; E11.42 Type 2 diabetes mellitus with diabetic polyneuropathy; H40.9 Unspecified glaucoma; E78.00 Pure hypercholesterolemia, unspecified; J44.9 Chronic obstructive pulmonary disease, unspecified; K21.9 Gastro-esophageal reflux disease without esophagitis; H91.13 Presbycusis, bilateral; Z91.19 Patient's noncompliance with other medical treatment and regimen; M19.90 Unspecified osteoarthritis, unspecified site; Z79.82 Long term (current) use of aspirin; Z79.4 Long term (current) use of insulin; Z79.899 Other long term (current) drug therapy; Z99.81 Dependence on supplemental oxygen; Z85.41 Personal history of malignant neoplasm of cervix uteri; Z90.710 Acquired absence of both cervix and uterus; Z82.49 Family history of ischemic heart disease and other diseases of the circulatory system; Z83.3 Family history of diabetes mellitus; Z96.652 Presence of left artificial knee joint
CPT/HCPCS: 36415; 71046; 80048; 80053; 81001; 82009; 82962; 83036; 83605; 83880; 84484; 85025; 85027; 93005; 94640; 96374; 99285; A9270-GY; J1815-GY; J1940; J7050; J7620-GY; Q9967

== ENCOUNTER 2017-12-24 12:15 | Emergency (ER) | payer MEDICARE, OTHER ==
--- NOTE | 2017-12-24 13:03 | EDM.PDOC ---
ED HPI GENERAL MEDICAL PROBLEM - General Chief Complaint: Respiratory Problem Stated Complaint: Shortness of Breath, Cough Time Seen by Provider: 12/24/17 12:20 Source of Information: Reports: Patient History Limitations: Reports: No Limitations - History of Present Illness INITIAL COMMENTS - FREE TEXT/NARRATIVE: Patient is a 77-year-old female who is well known to myself history of CHF COPD and diabetes she was discharged home doing well for the last 2 weeks patient has complained of shortness of breath with exertion patient's been taking her Lasix on a regular basis and states her sugars are well controlled Onset: Gradual Duration: Week(s):, Constant Location: Reports: Chest Severity: Moderate Improves with: Reports: Rest Worsens with: Reports: Other (Activity) Context: Reports: Other (Shortness of breath) Associated Symptoms: Reports: Cough, Shortness of Breath, Weakness - Related Data Allergies Allergy/AdvReac Type Severity Reaction Status Date / Time No Known Allergies Allergy Verified 12/24/17 12:25 Home Meds: Home Meds Albuterol/Ipratropium [DuoNeb 3.0-0.5 MG/3 ML] 3 ml NEB QID 02/21/17 [History] Aspirin [Halfprin] 81 mg PO DAILY 02/21/17 [History] Brinzolamide [Azopt] 1 drop EYEBOTH BID 02/21/17 [History] Carvedilol [Coreg] 25 mg PO BID 02/21/17 [History] Ipratropium [Atrovent HFA] 2 puff INH Q2H PRN 02/21/17 [History] Latanoprost [Xalatan 0.005% [facility]] 1 drop EYEBOTH BEDTIME 02/21/17 [History ] Omeprazole 20 mg PO DAILY 02/21/17 [History] atorvaSTATin Calcium [Atorvastatin Calcium] 40 mg PO BEDTIME 02/21/17 [History] Bumetanide 1 mg PO DAILY 04/13/17 [History] Spironolactone [Aldactone] 25 mg PO DAILY 04/13/17 [History] Lisinopril 2.5 mg PO DAILY 11/26/17 [History] Insulin Aspart [NovoLOG] 0 unit SUBCUT QIDACANDBED #6 pen 11/29/17 [Rx] Insulin Glarg,Human.Rec.Analog [Lantus] 40 unit SUBCUT DAILY #6 pen 11/29/17 [Rx ] Potassium Chloride [Klor-Con M20] 20 meq PO DAILY #30 tab.er 11/29/17 [Rx] Furosemide [Lasix] 40 mg PO BID 30 Days #60 tablet 12/24/17 [Rx] Past Medical History HEENT History: Reports: Cataract, Glaucoma, Hard of Hearing, Impaired Vision, Other (See Below) Other HEENT History: Patient wears glasses; 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 Cardiovascular History: Reports: Cardiomyopathy, Heart Failure, High Cholesterol , Hypertension, Syncope, Other (See Below) Other Cardiovascular History: Cardiomyopathy and history of CHF with ejection fraction of about 30% per son's history; syncopal episode of unknown etiology in 2017 Respiratory History: Reports: COPD, Other (See Below) Other Respiratory History: O2 dependent COPD Gastrointestinal History: Reports: Chronic Diarrhea, Gastritis, GERD Genitourinary History: Reports: Chronic Renal Insuffiency, Diabetic Nephropathy , UTI, Recurrent BANKRUPTCY ATTORNEY History: Reports: Dysfunctional Uterine Bleeding, Fibroids, Musculoskeletal History: Reports: Arthritis, Osteoarthritis Neurological History: Reports: Neuropathy, Diabetic, Neuropathy, Peripheral Psychiatric History: Reports: None Other Psychiatric History: Son with alcohol abuse with secondary alcoholic cardiomyopathy, CHF, anxiety, depression, and successful suicide at age 45 with previous inpatient treatment for his addiction, etc. Endocrine/Metabolic History: Reports: Diabetes, Type II, IDDM Hematologic History: Reports: Anemia, Blood Transfusion(s), Iron Deficiency, Other (See Below) Other Hematologic History: Transfusion secondary to dysfunctional uterine bleeding in her 40s Immunologic History: Reports: None Oncologic (Cancer) History: Reports: Cervix, Other (See Below) Other Oncologic History: Incidental Cervical cancer in her 40s at time of her hysterectomy with no further treatment required Dermatologic History: Reports: None - Infectious Disease History Infectious Disease History: Reports: Chicken Pox, Measles, Mumps, TB - Past Surgical History Head Surgeries/Procedures: Reports: None HEENT Surgical History: Reports: Cataract Surgery, Oral Surgery, Tonsillectomy, Other (See Below) Other HEENT Surgeries/Procedures: Bilateral cataract surgery in about 2013; Tonsillectomy at age 13 Cardiovascular Surgical History: Reports: None Respiratory Surgical History: Reports: None GI Surgical History: Reports: Appendectomy, Colonoscopy, Other (See Below) Other GI Surgeries/Procedures: Appendectomy in 1967; colonoscopy in 1994 Female Surgical History: Reports: Hysterectomy, Salpingo-Oophorectomy, Other (See Below) Other Female Surgeries/Procedures: Complete hysterectomy including bilateral salpingo-oophorectomy in her 40s secondary to dysfunctional uterine bleeding Musculoskeletal Surgical History: Reports: Arthroscopic Procedure, Carpal Tunnel , Joint Replacement, Knee Replacement, Shoulder Surgery, Other (See Below) Other Musculoskeletal Surgeries/Procedures:: Left total knee arthroplasty in 2004; bilateral arthroscopic shoulder surgery in 2001; Left carpal tunnel release 1997 Oncologic Surgical History: Reports: None Dermatological Surgical History: Reports: None - Past Imaging History Past Imaging History: Reports: Cardiac Echo (Last echocardiogram in June 2016 per patient with ejection fraction of 30% at that time) Social & Family History - Family History Cardiac: Reports: CAD, Cardiomyopathy, Heart Failure, High Cholesterol, Hypertension, CT, Other (See Below) Other Cardiac Family History: Father with fatal CT at age 67; 3 brothers with hypertension; brother with hyperlipidemia; son with alcohol-induced cardiomyopathy Respiratory: Reports: None GI: Reports: GERD, Other (See Below) Other GI Family History: GERD in brother : Reports: Diabetic Nephropathy, Dialysis, Renal Disease/Insufficiency, Other (See Below) Other Family History: Sister with diabetic nephropathy requiring dialysis OBGYN: Reports: Recurrent Spontaneous Other OBGYN Family History: Sister with recurrent SAB Musculoskeletal: Reports: None Neurological: Reports: None Psychiatric: Reports: Anxiety, Depression, Psych Hospitalization(s), Suicide Attempt, Other (See Below) Other Psychiatric Family History: Son with alcohol abuse with secondary alcoholic cardiomyopathy, CHF, anxiety, depression, and successful suicide at age 45 with previous inpatient treatment for his addiction, etc. Endocrine/Metabolic: Reports: Diabetes, type II, Other (See Below) Other Endocrine/Metabolic Family History: Sister with AODM with complications as above Hematologic: Reports: None Immunologic: Reports: None Dermatologic: Reports: None Oncologic: Reports: Other (See Below) Other Oncologic Family History: Brothers 2 with unknown type of fatal cancer - Tobacco Use Smoking Status *Q: Former Smoker Used Tobacco, but Quit: Yes Month/Year Tobacco Last Used: 0 - Caffeine Use Caffeine Use: Reports: Soda, Tea - Living Situation & Occupation Living situation: Reports: (2016, 4 children) Occupation: Retired ([employer], retired at age 69) ED ROS GENERAL - Review of Systems Review Of Systems: See Below Constitutional: Reports: Weakness HEENT: Reports: No Symptoms Respiratory: Reports: Shortness of Breath Cardiovascular: Reports: No Symptoms Endocrine: Reports: No Symptoms GI/Abdominal: Reports: No Symptoms : Reports: No Symptoms Musculoskeletal: Reports: No Symptoms Skin: Reports: No Symptoms Neurological: Reports: No Symptoms Psychiatric: Reports: No Symptoms Hematologic/Lymphatic: Reports: No Symptoms Immunologic: Reports: No Symptoms ED EXAM, GENERAL - Physical Exam Exam: See Below Exam Limited By: No Limitations General Appearance: Alert, Mild Distress Eye Exam: Bilateral Eye: EOMI, PERRL Ears: Normal External Exam, Normal Canal, Hearing Grossly Normal, Normal TMs Ear Exam: Bilateral Ear: Auricle Normal, Canal Normal, TM normal Nose: Normal Inspection, Normal Mucosa, No Blood Throat/Mouth: Normal Inspection, Normal Lips, Normal Teeth, Normal Gums, Normal Oropharynx, Normal Voice, No Airway Compromise Head: Atraumatic, Normocephalic Neck: Normal Inspection, Supple, Non-Tender, Full Range of Motion Respiratory/Chest: Decreased Breath Sounds, Rales (At the base), Prolonged Expiration Cardiovascular: Normal Peripheral Pulses, Regular Rate, Rhythm, No Edema, No Gallop, No JVD, No Murmur, No Rub GI/Abdominal: Normal Bowel Sounds, Soft, Non-Tender, No Organomegaly, No Distention, No Abnormal Bruit, No Mass (Female) Exam: Normal External Exam, Normal Speculum Exam, Normal Bimanual Exam Rectal (Female) Exam: Deferred Back Exam: Decreased Range of Motion Extremities: Normal Inspection, Normal Range of Motion, Non-Tender, Normal Capillary Refill, No Pedal Edema Neurological: Alert, Oriented, CN II-XII Intact, Normal Cognition, Normal Gait, Normal Reflexes, No Motor/Sensory Deficits Psychiatric: Normal Affect, Normal Mood Skin Exam: Warm, Dry, Intact, Normal Color, No Rash Course - Vital Signs Last Recorded V/S: Last Vital Signs Temp 97.5 F 12/24/17 12:15 Pulse 100 12/24/17 12:15 Resp 16 12/24/17 12:15 BP 158/90 H 12/24/17 12:15 Pulse Ox 95 12/24/17 12:15 - Orders/Labs/Meds Orders: Active Orders 24 hr Category Date Time Status Chest 2V [CR] Stat Exams 12/24/17 12:38 Taken Sodium Chloride 0.9% [Saline Flush] Med 12/24/17 13:17 Active 10 ml FLUSH ASDIRECTED PRN Saline Lock Insert [OM.PC] Stat Oth 12/24/17 13:17 Ordered Medication Orders Sodium Chloride (Saline Flush) 10 ml FLUSH ASDIRECTED PRN PRN Reason: Keep Vein Open Last Admin: 12/24/17 13:38 Dose: 10 ml Labs: Laboratory Tests 12/24/17 12/24/17 12/24/17 Range/Units 12:45 12:45 12:45 WBC 8.0 (4.0-10.2) K/uL RBC 3.60 L (3.77-5.09) M/uL Hgb 10.5 L (11.7-15.5) g/dL Hct 33.7 L (34.0-46.0) % MCV 93.6 (84.0-98.0) fL MCH 29.2 (28.2-33.3) pg MCHC 31.2 L (31.7-36.0) g/dL RDW 13.7 (11.2-14.1) % Plt Count 189 (150-350) K/uL Neut % (Auto) 58.8 (45.0-80.0) % Lymph % (Auto) 31.5 (10.0-50.0) % [place] % (Auto) 6.8 (2.0-14.0) % Eos % (Auto) 2.4 (0.0-5.0) % Baso % (Auto) 0.5 (0.0-2.0) % Neut # (Auto) 4.71 (1.40-7.00) K/uL Lymph # (Auto) 2.52 (0.50-3.50) K/uL [place] # (Auto) 0.54 (0.00-1.00) K/uL Eos # (Auto) 0.19 (0.00-0.50) K/uL Baso # (Auto) 0.04 (0.00-0.20) K/uL Sodium 145 (136-145) mmol/L Potassium 4.3 (3.5-5.1) mmol/L Chloride 107 (98-107) mmol/L Carbon Dioxide 29.8 (21.0-32.0) mmol/L BUN 24 H (7-18) mg/dL Creatinine 0.93 (0.51-1.17) mg/dL Est Cr Clr Drug Dosing 43.75 mL/min Estimated GFR (MDRD) 58 mL/min Glucose 197 H (74-106) mg/dL Hemoglobin A1c 11.5 H (4.3-5.7) % Calcium 8.2 L (8.5-10.1) mg/dL Total Bilirubin 0.7 (0.2-1.0) mg/dL AST 14 L (15-37) U/L ALT 15 (12-78) U/L Alkaline Phosphatase 87 (46-116) IU/L NT-Pro-B Natriuret Pep (0-125) pg/mL Total Protein 6.8 (6.4-8.2) g/dL Albumin 2.6 L (3.4-5.0) g/dL 12/24/17 Range/Units 12:45 WBC (4.0-10.2) K/uL RBC (3.77-5.09) M/uL Hgb (11.7-15.5) g/dL Hct (34.0-46.0) % MCV (84.0-98.0) fL MCH (28.2-33.3) pg MCHC (31.7-36.0) g/dL RDW (11.2-14.1) % Plt Count (150-350) K/uL Neut % (Auto) (45.0-80.0) % Lymph % (Auto) (10.0-50.0) % [place] % (Auto) (2.0-14.0) % Eos % (Auto) (0.0-5.0) % Baso % (Auto) (0.0-2.0) % Neut # (Auto) (1.40-7.00) K/uL Lymph # (Auto) (0.50-3.50) K/uL [place] # (Auto) (0.00-1.00) K/uL Eos # (Auto) (0.00-0.50) K/uL Baso # (Auto) (0.00-0.20) K/uL Sodium (136-145) mmol/L Potassium (3.5-5.1) mmol/L Chloride (98-107) mmol/L Carbon Dioxide (21.0-32.0) mmol/L BUN (7-18) mg/dL Creatinine (0.51-1.17) mg/dL Est Cr Clr Drug Dosing mL/min Estimated GFR (MDRD) mL/min Glucose (74-106) mg/dL Hemoglobin A1c (4.3-5.7) % Calcium (8.5-10.1) mg/dL Total Bilirubin (0.2-1.0) mg/dL AST (15-37) U/L ALT (12-78) U/L Alkaline Phosphatase (46-116) IU/L NT-Pro-B Natriuret Pep 08550 H (0-125) pg/mL Total Protein (6.4-8.2) g/dL Albumin (3.4-5.0) g/dL Meds: Medications Generic Name Dose Route Start Last Admin Trade Name Freq PRN Reason Stop Dose Admin Sodium Chloride 10 ml 12/24/17 13:17 12/24/17 13:38 Saline Flush FLUSH 10 ml ASDIRECTED PRN Administration Keep Vein Open Discontinued Medications Generic Name Dose Route Start Last Admin Trade Name Freq PRN Reason Stop Dose Admin Furosemide 40 mg 12/24/17 13:17 12/24/17 13:38 Lasix IVPUSH 12/24/17 13:18 40 mg NOW ONE Administration Departure - Departure Time of Disposition: 15:14 Disposition: Home, Self-Care 01 Condition: Fair Clinical Impression: CHF (congestive heart failure), NYHA class II Qualifiers: Congestive heart failure type: unspecified Qualified Code(s): I50.9 - Heart failure, unspecified CHF (congestive heart failure) Qualifiers: Heart failure type: unspecified Heart failure chronicity: acute on chronic Qualified Code(s): I50.9 - Heart failure, unspecified - Discharge Information *PRESCRIPTION DRUG MONITORING PROGRAM REVIEWED*: No *COPY OF PRESCRIPTION DRUG MONITORING REPORT IN PATIENT MONSERRAT: No Prescriptions: Furosemide [Lasix] 40 mg PO BID 30 Days #60 tablet Instructions: Heart Failure Action Plan Referrals: Meeta Calvo PA-C [Primary Care Provider] - Forms: ED Department Discharge Care Plan Goals: Patient diagnosed with congestive heart failure we will go ahead and send her home on Lasix 40 mg 1 tablet in the morning and 1 at 2 PM she will be sent home a week should schedule her for echocardiogram prior to visit with myself on . - My Orders Last 24 Hours: My Active Orders 12/24/17 12:38 Chest 2V [CR] Stat 12/24/17 13:17 Sodium Chloride 0.9% [Saline Flush] 10 ml FLUSH ASDIRECTED PRN Saline Lock Insert [OM.PC] Stat - Assessment/Plan Last 24 Hours: My Active Orders 12/24/17 12:38 Chest 2V [CR] Stat 12/24/17 13:17 Sodium Chloride 0.9% [Saline Flush] 10 ml FLUSH ASDIRECTED PRN Saline Lock Insert [OM.PC] Stat
[2017-12-24] MEDS: Furosemide 40 MG/4 ML VIAL IVPUSH ONE (13:38)
[2017-12-24] MEDS: Sodium Chloride 0.9% 10 ML Syringe FLUSH PRN (13:38)
== END 2017-12-24 16:07 | disposition home or self-care (01) ==
LOC: LL.ED 12:15
DX: I13.0 Hypertensive heart and chronic kidney disease with heart failure and stage 1 through stage 4 chronic kidney disease, or unspecified chronic kidney disease (principal); E11.22 Type 2 diabetes mellitus with diabetic chronic kidney disease; N18.9 Chronic kidney disease, unspecified; I50.9 Heart failure, unspecified; E11.21 Type 2 diabetes mellitus with diabetic nephropathy; E11.40 Type 2 diabetes mellitus with diabetic neuropathy, unspecified; E78.00 Pure hypercholesterolemia, unspecified; Z87.891 Personal history of nicotine dependence; Z79.82 Long term (current) use of aspirin; Z79.4 Long term (current) use of insulin; Z79.899 Other long term (current) drug therapy
CPT/HCPCS: 36415; 71046; 80053; 83036; 83880; 85025; 96374; 99285; J1940; J7050

== ENCOUNTER 2018-11-20 08:54 | Emergency (ER) | payer MEDICARE ==
--- NOTE | 2018-11-20 09:05 | EDM.PDOC ---
ED HPI GENERAL MEDICAL PROBLEM - General Chief Complaint: Lower Extremity Injury/Pain Stated Complaint: right leg pain Time Seen by Provider: 11/20/18 08:55 Source of Information: Reports: Patient, Family (Son, Marko), Old Records ([facility] chart/EMR), Other ([facility]MR) History Limitations: Reports: No Limitations - History of Present Illness INITIAL COMMENTS - FREE TEXT/NARRATIVE: The patient was brought to the emergency room via private automobile by her son for evaluation of progressive "30/10" right knee pain, which does radiate into her proximal right hip and thigh with no history of fall, injury, etc. Symptoms have been refractory to therapy, including 1300 mg of Tylenol taken at 7 AM this morning with additional heating pad therapy. Her arthritis has otherwise been stable. The patient denies any chest pain/pressure, heart flutter, dizziness, orthostasis, orthopnea, diaphoresis, paresthesias, recent decreased exercise tolerance, or any other anginal-type symptoms, however her overall exercise tolerance is low secondary to her chronic CHF. No recent history of abdominal pain, heartburn, nausea, diarrhea, melena, gross hematochezia, or any food intolerance, including fatty foods, etc.. The patient also denies any recent fever, cough, wheezing, etc. with relatively stable chronic dyspnea secondary to her CHF. She is a somewhat poor historian. Onset: Gradual Onset Date: 11/15/18 Duration: Constant, Getting Worse Location: Reports: Lower Extremity, Right, Radiates to (As above). Denies: Head , Face, Neck, Chest, Abdomen, Back, Pelvis, Upper Extremity, Left, Upper Extremity, Right, Lower Extremity, Left Quality: Reports: Ache, Same as Previous Episode Severity: Severe Improves with: Reports: None Worsens with: Reports: None Context: Reports: Other (As above). Denies: Sick Contact, Trauma Associated Symptoms: Reports: Shortness of Breath (Stable chronic). Denies: Confusion, Chest Pain, Cough, Diaphoresis, Fever/Chills, Headaches, Loss of Appetite, Malaise, Nausea/Vomiting, Syncope Treatments CONTINUITY DIRECTOR: Reports: Acetaminophen, Other (see below) (As above) Right Leg Pain Score (Numeric/FACES): 10 - Related Data Allergies Allergy/AdvReac Type Severity Reaction Status Date / Time morphine Allergy Other Verified 11/20/18 11:42 Home Meds: Home Meds Albuterol/Ipratropium [DuoNeb 3.0-0.5 MG/3 ML] 3 ml NEB QID 02/21/17 [History] Brinzolamide [Azopt] 1 drop EYEBOTH BID 02/21/17 [History] Carvedilol [Coreg] 25 mg PO DAILY 02/21/17 [History] Latanoprost [Xalatan 0.005% Ophth Soln] 1 drop EYEBOTH BEDTIME 02/21/17 [History ] atorvaSTATin Calcium [Atorvastatin Calcium] 40 mg PO BEDTIME 02/21/17 [History] Budesonide/Formoterol Fumarate [Symbicort 160-4.5 Mcg Inhaler] 1 puff IH DAILY 02/25/18 [History] Acetaminophen [Tylenol] 650 mg PO Q4H PRN tablet 03/01/18 [Rx] Albuterol/Ipratropium [DuoNeb 3.0-0.5 MG/3 ML] 3 ml NEB Q4HRRT PRN neb [Rx] Bumetanide 1 mg PO BID #14 tablet 03/01/18 [Rx] Loperamide [Imodium AD] 2 mg PO Q6H PRN #0 tablet 03/01/18 [Rx] Calcium Carbonate [Tums Extra Strength] 1,500 mg PO BEDTIME PRN 11/20/18 [ History] Carvedilol [Coreg] 12.5 mg PO BEDTIME 11/20/18 [History] Ferrous Sulfate 325 mg PO DAILY 11/20/18 [History] Insulin Glulisine [Apidra Solostar] 10 - 15 units SQ TID 11/20/18 [History] Labetalol HCl [Labetalol] 100 mg PO BID 11/20/18 [History] Past Medical History HEENT History: Reports: Cataract, Glaucoma, Hard of Hearing, Impaired Vision, Other (See Below). Denies: Allergic Rhinitis, Otitis Media, Retinal Detachment Other HEENT History: Patient wears glasses; 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 Cardiovascular History: Reports: Arrhythmia, CAD, Cardiomyopathy, Heart Failure , Heart Murmur, High Cholesterol, Hypertension, Pulmonary Hypertension, Syncope , Other (See Below). Denies: Afib, Aneurysm, Blood Clots/VTE/DVT, Bypass, CT, PTCA, Stents Other Cardiovascular History: Nonischemic Cardiomyopathy with systolic/ diastolic dysfunction cardiomegaly, severe biatrial enlargement, and recurrent CHF with ejection fraction of 2530 percent and evidence of pulmonary hypertension and moderate mitral valve insufficiency by last echocardiogram on 01/08/18. Syncopal episode of unknown etiology in 2017. History of PVCs diagnosed in January 2017. D-dimer elevation on 02/21/17 with negative workup. Respiratory History: Reports: Bronchitis, Recurrent, COPD, Pneumonia, Recurrent , Other (See Below). Denies: Asthma, Intubation, Previous, PE, Pneumothorax, Sleep Apnea, TB Other Respiratory History: O2 dependent COPD Gastrointestinal History: Reports: Chronic Diarrhea, Gastritis, GERD. Denies: Celiac Disease, Cholelithiasis, Chronic Constipation, Colon Polyp, Fecal Incontinence, GI Bleed, Hepatitis, Inflammatory Bowel Disease, Irritable Bowel Syndrome, Jaundice, Pancreatitis, PUD Genitourinary History: Reports: Acute Renal Failure, Chronic Renal Insuffiency, Diabetic Nephropathy, Urinary Incontinence, UTI, Recurrent. Denies: Renal Calculus, Retention, Urinary, STD SPECIAL EDUCATION ASSOCIATE History: Reports: Dysfunctional Uterine Bleeding, Fibroids, : 4 Para: 4 LMP (Approximate): Other (See Below) Other SPECIAL EDUCATION ASSOCIATE History: Surgical menopause secondary to dysfunctional uterine bleeding. Full term without complications during pregnancies or deliveries. Musculoskeletal History: Reports: Arthritis, Back Pain, Chronic, Neck Pain, Chronic, Osteoarthritis. Denies: Amputation, Fracture, Gout, RA, SLE Neurological History: Reports: Headaches, Chronic, Migraines, Neuropathy, Diabetic, Neuropathy, Peripheral, Other (See Below). 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 Psychiatric History: Reports: None. Denies: Abuse, Victim of, ADD, ADHD, Addiction, Anxiety, Depression, Psych Hospitalization(s), PTSD, Suicide Attempt , Suicidal Ideation Endocrine/Metabolic History: Reports: Diabetes, Type II, IDDM, Other (See Below) . Denies: Diabetes, Gestational, Diabetes, Type I, Diabetes Mellitus, Type 3c, Hypothyroidism Other Endocrine/Metabolic History: Hypokalemia//hyperkalemia. Hypoalbuminemia. Hypocalcemia. Hematologic History: Reports: Anemia, Blood Transfusion(s), Iron Deficiency, Other (See Below) Other Hematologic History: Transfusion secondary to dysfunctional uterine bleeding in her 40s Immunologic History: Reports: None. Denies: AIDS, HIV, SLE Oncologic (Cancer) History: Reports: Cervix, Other (See Below). Denies: Basal Cell Carcinoma, Breast, Colon, Hodgkin's Lymphoma, Leukemia, Lymphoma, Non- Hodgkin's Lymphoma, Ovarian, Squamous Cell Carcinoma, Uterine Other Oncologic History: Incidental Cervical cancer in her 40s at time of her hysterectomy with no further treatment required Dermatologic History: Reports: None. Denies: Eczema, Psoriasis - Infectious Disease History Infectious Disease History: Reports: Chicken Pox, Measles, Mumps, TB. Denies: C -Difficile, Influenza, Meningitis, Mononucleosis, MRSA, Rheumatic Fever, Rubella , Shingles, VRE - Past Surgical History Head Surgeries/Procedures: Reports: None HEENT Surgical History: Reports: Cataract Surgery, Oral Surgery, Tonsillectomy, Other (See Below). Denies: Adenoidectomy, Eye Surgery, Laser Surgery, LASIK, Myringotomy w Tube(s), Naso-Sinus Surgery Other HEENT Surgeries/Procedures: Bilateral cataract surgery in about 2013; Tonsillectomy at age 13 Cardiovascular Surgical History: Reports: None. Denies: Varicose, Vascular Surgery Respiratory Surgical History: Reports: None. Denies: Thoracentesis GI Surgical History: Reports: Appendectomy, Cholecystectomy, Colonoscopy, Other (See Below). Denies: EGD, Hernia, Abdominal, Hernia, Inguinal, Hernia Repair/ Other, Polypectomy Other GI Surgeries/Procedures: Appendectomy in 1967; colonoscopy in about 2005 with previous evaluation 1994. Laparoscopic cholecystectomy in her 30s. Female Surgical History: Reports: Hysterectomy, Salpingo-Oophorectomy, Other (See Below). Denies: Breast Biopsy, Section, D&C Other Female Surgeries/Procedures: Complete hysterectomy including bilateral salpingo-oophorectomy in her 30s secondary to dysfunctional uterine bleeding. Endocrine Surgical History: Reports: None. Denies: Thyroid Biopsy Neurological Surgical History: Reports: None. Denies: C-Spine, Discectomy, Laminectomy, Lumbar Spine, Sacral Spine, Spinal Fusion, Thoracic Spine, Vertebroplasty Musculoskeletal Surgical History: Reports: Arthroscopic Procedure, Carpal Tunnel , Joint Replacement, Knee Replacement, Shoulder Surgery, Other (See Below). Denies: Arthroscopic Knee, Ganglion Cyst, ORIF Other Musculoskeletal Surgeries/Procedures:: Left total knee arthroplasty in 2004; bilateral arthroscopic shoulder surgery in 2001 rather than in 1965 as per [facility] records; Left carpal tunnel release 1997. Oncologic Surgical History: Reports: None Dermatological Surgical History: Reports: None - Past Imaging History Past Imaging History: Reports: Cardiac Echo (Last echocardiogram on 08/26/18 with ejection fraction of 45% with previous echocardiogram on 05/04/17 and 01/08/18 with findings as above. Additional previous echocardiogram in June 2016 per patient with ejection fraction of 30% by patient history that time.), CAT Scan ( Negative CTA of the chest for PE on 05/04/17 and 02/21/17.), Mammogram (Last on ), Stress Testing (Negative for ischemia Lexiscan Cardiolite evaluation on 04/15/17 with ejection fraction of 31% diastolically and 46% systolically.), Ultrasound (Bilateral renal ultrasounds on 08/22/18.) Social & Family History - Family History HEENT: Reports: None. Denies: Allergic Rhinitis, Glaucoma, Macular Degeneration , Retinal Detachment Cardiac: Reports: CAD, Cardiomyopathy, Heart Failure, High Cholesterol, Hypertension, CT, Other (See Below). Denies: Afib, AICD, Arrhythmia, Blood Clots/VTE/DVT, Bypass, Pacemaker, Syncope Other Cardiac Family History: Father with fatal CT at age 67; 3 brothers with hypertension; brother with hyperlipidemia; son with alcohol-induced cardiomyopathy Respiratory: Reports: None. Denies: Asthma, COPD, PE, Pneumothorax, Sleep Apnea GI: Reports: GERD, Other (See Below). Denies: Celiac Disease, Cholelithiasis, Colon Polyps, GI bleed, Inflammatory Bowel Disease, Irritable Bowel Syndrome, PUD Other GI Family History: GERD in brother : Reports: Diabetic Nephropathy, Dialysis, Renal Disease/Insufficiency, Other (See Below). Denies: Renal Calculus Other Family History: Sister with diabetic nephropathy requiring dialysis OBGYN: Reports: Recurrent Spontaneous Other OBGYN Family History: Sister with recurrent SAB Musculoskeletal: Reports: None. Denies: Arthritis, Gout, Osteoarthritis, RA, SLE Neurological: Reports: None. Denies: Alzheimers Disease, CVA, Dementia, Migraines, MS, Parkinson's, Seizure, TIA, Vertigo Psychiatric: Reports: Anxiety, Depression, Psych Hospitalization(s), Suicide Attempt, Other (See Below). Denies: Abuse, Victim of, ADD, ADHD, PTSD Other Psychiatric Family History: Son with alcohol abuse with secondary alcoholic cardiomyopathy, CHF, anxiety, depression, and successful suicide at age 45 with previous inpatient treatment for his addiction, etc. Endocrine/Metabolic: Reports: Diabetes, type II, Other (See Below). Denies: Diabetes, Type I, Diabetes Mellitus, Type 3c, Hypothyroidism, IDDM Other Endocrine/Metabolic Family History: Sister with AODM with complications as above Hematologic: Reports: None. Denies: SLE Immunologic: Reports: None. Denies: AIDS, HIV, SLE Dermatologic: Reports: None. Denies: Eczema, Psoriasis Oncologic: Reports: Other (See Below) Other Oncologic Family History: Brothers 2 with unknown type of fatal cancer - Tobacco Use Smoking Status *Q: Former Smoker Tobacco Use Within Last Twelve Months: No Years of Tobacco use: 10 Packs/Tins Daily: 1.5 Packs/Tins Daily Comment: Stop smoking in her 30s. Used Tobacco, but Quit: Yes Smoking Cessation Information Provided To Patient: No Second Hand Smoke Exposure: Yes Source of Second Hand Smoke Exposure: Son smokes Second Hand Smoke Education Provided: Yes - Caffeine Use Caffeine Use: Reports: Soda (2 sodas per day), Tea (3 cups per day). Denies: Coffee, Energy Drinks - Alcohol Use Alcohol Use History: No Days Per Week of Alcohol Use: 0 Number of Drinks Per Day: 0 Number of Drinks Per Day Comment: No previous DWIs, problems with alcohol abuse , etc. Total Drinks Per Week: 0 Alcohol Use in Last Twelve Months: No - Recreational Drug Use Recreational Drug Use: No Drug Use in Last 12 Months: No Recreational Drug Type: Denies: Amphetamines (Speed), Cocaine, Heroin, Inhalants (Glues, Solvents, Aerosols), LSD (Acid), Marijuana/Hashish, Methamphetamine, Morphine, Oxycodone - Living Situation & Occupation Living situation: Reports: (2016, 4 children), with Family Occupation: Retired ([employer], retired at age 69) Review of Systems - Review of Systems Review Of Systems: ROS reveals no pertinent complaints other than HPI. ED EXAM, GENERAL - Physical Exam Exam: See Below Exam Limited By: No Limitations General Appearance: Alert, WD/WN, No Apparent Distress Head: Atraumatic, Normocephalic Neck: Normal Inspection, Supple, Non-Tender, Full Range of Motion. No: Lymphadenopathy (L), Lymphadenopathy (R), Thyromegaly Respiratory/Chest: No Respiratory Distress, No Accessory Muscle Use, Chest Non- Tender, Rales (Mild bilateral basilar). No: Pleural Rub, Retractions Cardiovascular: Normal Peripheral Pulses, Regular Rate, Rhythm, No Edema, No Gallop, No JVD, No Rub, Systolic Murmur (Stable 2/6 BATSHEVA of the mitral valve). No: Gallop/S3, Gallop/S4, Friction Rub Peripheral Pulses: 2+: Radial (L), Radial (R), Dorsalis Pedis (L), Dorsalis Pedis (R) GI/Abdominal: Normal Bowel Sounds, Soft, Non-Tender, No Organomegaly, No Distention, No Abnormal Bruit, No Mass, Pelvis Stable, Other (Obese). No: Guarding (Female) Exam: Deferred Rectal (Female) Exam: Deferred Back Exam: Normal Inspection, Full Range of Motion. No: CVA Tenderness (L), CVA Tenderness (R), Muscle Spasm Extremities: No Pedal Edema, Normal Capillary Refill. No: Non-Tender (Mild palpation pain over the right knee and mid to proximal right thigh with no swelling, ecchymosis, deformity, instability, crepitation, effusion, subluxation , luxation, etc.), Charlee's Sign Neurological: Alert, Oriented, CN II-XII Intact, Normal Cognition, Normal Reflexes (Negative Babinski's), No Motor/Sensory Deficits, Abnormal Gait (Mild secondary to right leg pain). No: Normal Gait Psychiatric: Normal Affect, Normal Mood Skin Exam: Warm, Dry, Intact, Ecchymosis (Secondary to insulin injections in the abdominal region). No: Diaphoretic, Wound/Incision Lymphatic: No Adenopathy Course - Vital Signs Last Recorded V/S: Last Vital Signs Temp 36.4 C 11/20/18 08:57 Pulse 72 11/20/18 09:44 Resp 18 11/20/18 09:44 BP 175/90 H 11/20/18 09:44 Pulse Ox 99 11/20/18 09:44 Vital Signs - 24 hr 08/28/19 08/28/19 08:57 09:44 Temperature [ 36.4 C Temporal] Pulse, 81 72 Peripheral [ Pulse Oximetry] Respiratory 18 18 Rate Blood Pressure 178/93 H 175/90 H [Right Upper Arm] O2 Sat by Pulse 98 99 Oximetry - Orders/Labs/Meds Orders: Active Orders 24 hr Category Date Time Status Blood Glucose Check, Bedside [RC] STAT Care 11/20/18 09:29 Active Femur Min 2V Rt [CR] Stat Exams 11/20/18 09:05 Taken Obtain Past Medical Record [OM.PC] Routine Oth 11/20/18 09:05 Active Labs: Laboratory Tests 11/20/18 Range/Units 09:31 POC Glucose 181 H (65-110) mg/dl Accu-Chek 181 mg percent Meds: Medications Discontinued Medications Generic Name Dose Route Start Last Admin Trade Name Freq PRN Reason Stop Dose Admin Methylprednisolone Acetate 80 mg 11/20/18 09:33 11/20/18 09:37 Depo-Medrol IM 11/20/18 09:34 80 mg ONETIME ONE Administration - Radiology Interpretation Free Text/Narrative:: X-rays of the right femur, 2 views, shows no evidence of acute fracture, dislocation, etc. with moderate to severe osteoarthritic changes in the knee, including significantly narrowed joint spaces bilaterally, with additional mild coxarthrosis. Departure - Departure Time of Disposition: 12:00 Disposition: Home, Self-Care 01 Condition: Fair Clinical Impression: Peptic reflux disease COPD (chronic obstructive pulmonary disease) Qualifiers: COPD type: emphysema Emphysema type: panlobular Qualified Code(s): J43.1 - Panlobular emphysema Osteoarthritis Qualifiers: Osteoarthritis location: multiple joints Osteoarthritis type: primary Qualified Code(s): M15.0 - Primary generalized (osteo)arthritis Hypertension Qualifiers: Hypertension type: essential hypertension Qualified Code(s): I10 - Essential ( primary) hypertension Coronary artery disease Qualifiers: Coronary Disease-Associated Artery/Lesion type: [place] artery [place] vs. transplanted heart: [place]ch[place] heart Associated angina: with stable angina Qualified Code(s): I25.118 - Atherosclerotic heart disease of [place] coronary artery with other forms of angina pectoris CHF (congestive heart failure) Qualifiers: Heart failure type: unspecified Heart failure chronicity: acute on chronic Qualified Code(s): I50.9 - Heart failure, unspecified - Discharge Information *PRESCRIPTION DRUG MONITORING PROGRAM REVIEWED*: Not Applicable *COPY OF PRESCRIPTION DRUG MONITORING REPORT IN PATIENT OMNSERRAT: Not Applicable Instructions: Joint Pain, [id number] Referrals: Guillermo Durand MD [Primary Care Provider] - Forms: ED Department Discharge Additional Instructions: 1. Followup with your regular provider in 5-7 days as directed. Bring these discharge instructions with you to that visit. 2. Bring your blood sugar records and all your medications including prescription OTC medicines to every follow-up appointment. 3. Strict compliance with medications and your home blood sugars as discussed 4. Discuss at the above follow-up visit your concomitant use of both labetalol and Coreg, which is relatively contraindicated secondary to dual beta maye therapy, your diabetes, etc. 5. BenGay or equivalent, heating pad, and/or ice packs as directed. 6. Stop all tobacco exposure TRENT as directed with counselling, information, etc. given 7. Immediately after this visit verify that your cellular telephone's voicemail has been activated and is empty. Also verify that your home telephone 's answering machine is operating properly and has space to receive messages. Note that it is sometimes necessary for us to be able to contact you at a later date to discuss your medical care. 8. Please remember that we are ALWAYS here for you and want to answer any questions you may have. Feel free to call the hospital any time and we call you back TRENT. - Problem List & Annotations (1) Osteoarthritis SNOMED Code(s): 268165297 Code(s): M19.90 - UNSPECIFIED OSTEOARTHRITIS, UNSPECIFIED SITE Status: Chronic Priority: High Current Visit: Yes Annotation/Comment:: Refractory right knee and right leg pain with no history of recent injury as above. Various therapeutic options were given. Per patient's request IM Depo-Medrol was given despite her current diabetes. Close follow-up of her blood sugars at home as below. Note previous left TKA. No additional NSAIDs secondary to her history of diabetic nephropathy. Otherwise continue symptomatic relief as before as per discharge instructions. Qualifiers: Osteoarthritis location: multiple joints Osteoarthritis type: primary Qualified Code(s): M15.0 - Primary generalized (osteo)arthritis (2) Hypertension SNOMED Code(s): 64089096 Code(s): I10 - ESSENTIAL (PRIMARY) HYPERTENSION Status: Chronic Priority : Medium Current Visit: Yes Annotation/Comment:: Blood Pressures under moderate control in the emergency room and in recent weeks by patient history with recent medication changes as above. Close follow-up by her regular provider. Continue current medical therapy for now. The patient has yet to take her morning medications. Qualifiers: Hypertension type: essential hypertension Qualified Code(s): I10 - Essential (primary) hypertension (3) CHF (congestive heart failure) SNOMED Code(s): 09168576 Code(s): I50.9 - HEART FAILURE, UNSPECIFIED Status: Acute Priority: High Current Visit: Yes Onset Date: 02/21/17 Annotation/Comment:: No chest pain or anginal type symptoms with stable chronic dyspnea. Patient apparently saw her regular provider 2 weeks ago with discontinuation of her spironolactone and lisinopril at that time secondary to her progressive diabetic nephropathy by patient history. She was apparently already started on additional labetalol at that time for her hypertension, however note additional current Coreg therapy. Duplicated beta maye therapy will be discussed with her regular provider at follow-up as per discharge instructions. Blood work was recently drawn and ordered by her regular provider on 11/15 with no follow-up appointment scheduled to this point your patient was advised to follow-up with her regular provider TRENT as per discharge instructions. Note recent echocardiogram on 01/08. Qualifiers: Heart failure type: unspecified Heart failure chronicity: acute on chronic Qualified Code(s): I50.9 - Heart failure, unspecified (4) Coronary artery disease SNOMED Code(s): 32156015 Code(s): I25.10 - ATHSCL HEART DISEASE OF [place] CORONARY ARTERY W/O ANG PCTRS Status: Acute Priority: High Current Visit: Yes Onset Date: Annotation/Comment:: As above Qualifiers: Coronary Disease-Associated Artery/Lesion type: [place] artery [place] vs. transplanted heart: [place] heart Associated angina: with stable angina Qualified Code(s): I25.118 - Atherosclerotic heart disease of [place] coronary artery with other forms of angina pectoris (5) Diabetes mellitus SNOMED Code(s): 78428524 Code(s): E11.9 - TYPE 2 DIABETES MELLITUS WITHOUT COMPLICATIONS Status: Chronic Priority: Medium Current Visit: Yes Annotation/Comment:: Continue to monitor blood sugars closely, including 4 times a day, i.e., before meals and at bedtime, home Accu-Cheks with additional sliding scale given today. Note compliance with this therapy was strongly recommended especially in light of her IM Depo-Medrol injection today. Her home Accu-Cheks have been ranging in the 160s to 260s by her history. Dietary compliance also strongly encouraged, including regular scheduled small meals, diabetic snacks, etc.. 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 Qualifiers: COPD type: emphysema Emphysema type: panlobular Qualified Code(s): J43.1 - Panlobular emphysema (7) Peptic reflux disease SNOMED Code(s): 955247938 Code(s): K21.9 - GASTRO-ESOPHAGEAL REFLUX DISEASE WITHOUT ESOPHAGITIS Status: Chronic Priority: Medium Current Visit: Yes Annotation/Comment:: Stable by history (8) Tobacco abuse counseling SNOMED Code(s): 217502261, 131552655, 568169606 Code(s): Z71.6 - TOBACCO ABUSE COUNSELING Status: Chronic Priority: Medium Current Visit: Yes Annotation/Comment:: Tobacco smoke exposure was once again extensively discussed with the patient and her son. Note that the son who brought her today is not the one who smokes, however he will relay this information to his brother. - Problem List Review Problem List Initiated/Reviewed/Updated: Yes - My Orders Last 24 Hours: My Active Orders 11/20/18 09:05 Femur Min 2V Rt [CR] Stat Obtain Past Medical Record [OM.PC] Routine 11/20/18 09:29 Blood Glucose Check, Bedside [RC] STAT - Assessment/Plan Last 24 Hours: My Active Orders 11/20/18 09:05 Femur Min 2V Rt [CR] Stat Obtain Past Medical Record [OM.PC] Routine 11/20/18 09:29 Blood Glucose Check, Bedside [RC] STAT Assessment:: As above Plan: As above. Extensive precautions were given to the patient and her son, who are in agreement with the treatment plan. See Patient Instructions for further treatment and plan.
[2018-11-20] MEDS ORDERED: methylPREDNISolone Acetate 80 MG/ML SDV IM ONE (09:33)
== END 2018-11-20 11:52 | disposition home or self-care (01) ==
LOC: LL.ED 08:54
DX: M17.11 Unilateral primary osteoarthritis, right knee (principal); I13.0 Hypertensive heart and chronic kidney disease with heart failure and stage 1 through stage 4 chronic kidney disease, or unspecified chronic kidney disease; E11.22 Type 2 diabetes mellitus with diabetic chronic kidney disease; N18.9 Chronic kidney disease, unspecified; I50.9 Heart failure, unspecified; D63.1 Anemia in chronic kidney disease; I25.118 Atherosclerotic heart disease of native coronary artery with other forms of angina pectoris; J43.1 Panlobular emphysema; K21.9 Gastro-esophageal reflux disease without esophagitis; Z87.891 Personal history of nicotine dependence; Z79.4 Long term (current) use of insulin; Z79.899 Other long term (current) drug therapy; Z88.5 Allergy status to narcotic agent
CPT/HCPCS: 82962; 96372; 99283-25; J1040

== ENCOUNTER 2019-06-26 10:00 | Inpatient (IN) | payer MEDICARE, OTHER ==
--- NOTE | 2019-06-26 10:06 | EDM.PDOC ---
ED HPI GENERAL MEDICAL PROBLEM - General Chief Complaint: Cardiovascular Problem Stated Complaint: cough, shortness of breath Time Seen by Provider: 06/26/19 10:06 Source of Information: Reports: Patient, Family (Son, Marko), Old Records ([facility] chart/EMR), Other ([facility]MR reviewed on ) History Limitations: Reports: No Limitations - History of Present Illness INITIAL COMMENTS - FREE TEXT/NARRATIVE: The patient was referred to the emergency room for further treatment and evaluation by LACEY Cardenas from [facility] in [place]. She was driven to the clinic by her son by private automobile. Patient has a 2 day history of increasing clear nasal drainage, nonproductive cough, and dyspnea with patient needing to start her as needed oxygen therapy yesterday evening. Her grandchildren have some mild URI symptoms, however she has had very little contact with them and has not been out in the public with no known exposure to infection, including influenza, COVID-19, etc. She does have a known history of COPD and did start using her nebulizer treatments yesterday, however she has not taken any of her other medications for the last 24 hours, including this morning. The patient also denies any recent wheezing, uses antipyretic medication, etc., although she has not measured her temperature at home.. She denies any pain or discomfort. The patient denies any chest pain/pressure, heart flutter, dizziness, orthostasis, orthopnea, diaphoresis, paresthesias, recent decreased exercise tolerance, or any other anginal-type symptoms. No recent history of abdominal pain, heartburn, nausea, diarrhea, melena, gross hematochezia, or any food intolerance, including fatty foods, etc., although some secondary emesis this morning secondary to the mucous in her throat. She denies any gross hematuria, colic, or other UTI symptoms. Onset: Gradual Onset Date: 06/24/19 Duration: Day(s):, Constant, Getting Worse Location: Reports: Other (No pain) Quality: Reports: Same as Previous Episode (COPD-like symptoms) Severity: Moderate Improves with: Reports: Rest Worsens with: Reports: Movement (Activity) Context: Reports: Sick Contact (As above). Denies: Trauma Associated Symptoms: Reports: Cough, cough w sputum (Clear?), Nausea/Vomiting ( As above), Shortness of Breath. Denies: Confusion, Chest Pain, Diaphoresis, Fever/Chills, Headaches, Loss of Appetite, Malaise, Rash, Weakness Treatments SECURITY ADMINISTRATOR: Reports: Other (see below) (None) - Related Data Allergies Allergy/AdvReac Type Severity Reaction Status Date / Time morphine Allergy Agitation Verified 06/26/19 10:45 Home Meds: Home Meds Albuterol/Ipratropium [DuoNeb 3.0-0.5 MG/3 ML] 3 ml NEB QID 02/21/17 [History] Latanoprost [Xalatan 0.005% Ophth Soln] 1 drop EYEBOTH BEDTIME 02/21/17 [History ] atorvaSTATin Calcium [Atorvastatin Calcium] 40 mg PO BEDTIME 02/21/17 [History] Budesonide/Formoterol Fumarate [Symbicort 160-4.5 Mcg Inhaler] 1 puff IH DAILY 02/25/18 [History] Acetaminophen [Tylenol] 650 mg PO Q4H PRN tablet 03/01/18 [Rx] Albuterol/Ipratropium [DuoNeb 3.0-0.5 MG/3 ML] 3 ml NEB Q4HRRT PRN neb [Rx] Loperamide [Imodium AD] 2 mg PO Q6H PRN #0 tablet 03/01/18 [Rx] Calcium Carbonate [Tums Extra Strength] 1,500 mg PO BEDTIME PRN 11/20/18 [ History] Ferrous Sulfate 325 mg PO DAILY 11/20/18 [History] Aspirin [Lo-Dose Aspirin EC] 81 mg PO DAILY 06/26/19 [History] Brinzolamide [Azopt 1% Ophth Susp] 1 drop EYEBOTH BID 06/26/19 [History] Bumetanide 1 mg PO DAILY 06/26/19 [History] Insulin Glarg,Human.Rec.Analog [Lantus Solostar] 14 units SUBCUT DAILY 06/26/19 [History] Insulin Glulisine [Apidra Solostar] 10 - 15 unit SUBCUT TID 06/26/19 [History] Losartan Potassium 50 mg PO DAILY 06/26/19 [History] Nitroglycerin 1 tab SL ASDIRECTED PRN 06/26/19 [History] carvediloL [Carvedilol] 25 mg PO BID 06/26/19 [History] Past Medical History HEENT History: Reports: Cataract, Glaucoma, Hard of Hearing, Impaired Vision, Other (See Below). Denies: Allergic Rhinitis, Otitis Media, Retinal Detachment Other HEENT History: Patient wears glasses; 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 Cardiovascular History: Reports: Arrhythmia, CAD, Cardiomyopathy, Heart Failure , Heart Murmur, High Cholesterol, Hypertension, Pulmonary Hypertension, Syncope , Other (See Below). Denies: Afib, Aneurysm, Blood Clots/VTE/DVT, Bypass, WA, PTCA, Stents Other Cardiovascular History: Nonischemic Cardiomyopathy with systolic/ diastolic dysfunction cardiomegaly, severe biatrial enlargement, and recurrent CHF with ejection fraction of 2530 percent and evidence of pulmonary hypertension and moderate mitral valve insufficiency by last echocardiogram on 01/08/18. Syncopal episode of unknown etiology in 2017. History of PVCs diagnosed in January 2017. D-dimer elevation on 02/21/17 with negative workup. Respiratory History: Reports: Bronchitis, Recurrent, COPD, Pneumonia, Recurrent , Other (See Below). Denies: Asthma, Intubation, Difficult, Intubation, Previous, PE, Pneumothorax, Sleep Apnea, TB Other Respiratory History: O2 dependent COPD Gastrointestinal History: Reports: Chronic Diarrhea, Gastritis, GERD. Denies: Celiac Disease, Cholelithiasis, Chronic Constipation, Colon Polyp, Fecal Incontinence, GI Bleed, Hepatitis, Inflammatory Bowel Disease, Irritable Bowel Syndrome, Jaundice, Pancreatitis, PUD Genitourinary History: Reports: Acute Renal Failure, Chronic Renal Insuffiency, Diabetic Nephropathy, Urinary Incontinence, UTI, Recurrent. Denies: Renal Calculus, Retention, Urinary, STD MANAGER VAN History: Reports: Dysfunctional Uterine Bleeding, Fibroids, . Denies: Spontaneous : 4 Para: 4 LMP (Approximate): Other (See Below) Other MANAGER VAN History: Surgical menopause secondary to dysfunctional uterine bleeding. Full term without complications during pregnancies or deliveries. Musculoskeletal History: Reports: Arthritis, Back Pain, Chronic, Neck Pain, Chronic, Osteoarthritis. Denies: Amputation, Fracture, Gout, RA, SLE Neurological History: Reports: Headaches, Chronic, Migraines, Neuropathy, Diabetic, Neuropathy, Peripheral, Other (See Below). 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 Psychiatric History: Reports: None. Denies: Abuse, Victim of, ADD, ADHD, Addiction, Anxiety, Depression, Psych Hospitalization(s), PTSD, Suicide Attempt , Suicidal Ideation Other Psychiatric History: Son with alcohol abuse with secondary alcoholic cardiomyopathy, CHF, anxiety, depression, and successful suicide at age 45 with previous inpatient treatment for his addiction, etc. Endocrine/Metabolic History: Reports: Diabetes, Type II, Hypokalemia, IDDM, Other (See Below). Denies: Diabetes, Gestational, Diabetes, Type I, Diabetes Mellitus, Type 3c, Hypothyroidism Other Endocrine/Metabolic History: Hypokalemia//hyperkalemia. Hypoalbuminemia. Hypocalcemia. Hematologic History: Reports: Anemia, Blood Transfusion(s), Iron Deficiency, Other (See Below) Other Hematologic History: Transfusion secondary to dysfunctional uterine bleeding in her 40s Immunologic History: Reports: None. Denies: AIDS, HIV, SLE Oncologic (Cancer) History: Reports: Cervix, Other (See Below). Denies: Basal Cell Carcinoma, Breast, Colon, Hodgkin's Lymphoma, Leukemia, Lymphoma, Non- Hodgkin's Lymphoma, Ovarian, Squamous Cell Carcinoma, Uterine Other Oncologic History: Incidental Cervical cancer in her late 30s at time of her hysterectomy with no further treatment required Dermatologic History: Reports: None. Denies: Eczema, Psoriasis - Infectious Disease History Infectious Disease History: Reports: Chicken Pox, Measles, Mumps. Denies: C- Difficile, Influenza, Meningitis, Mononucleosis, MRSA, Rheumatic Fever, Rubella , Shingles, TB, VRE - Past Surgical History Head Surgeries/Procedures: Reports: None HEENT Surgical History: Reports: Cataract Surgery, Oral Surgery, Tonsillectomy, Other (See Below). Denies: Adenoidectomy, Eye Surgery, Laser Surgery, LASIK, Myringotomy w Tube(s), Naso-Sinus Surgery Other HEENT Surgeries/Procedures: Bilateral cataract surgery in about 2013; Tonsillectomy at age 13 Cardiovascular Surgical History: Reports: None. Denies: Varicose, Vascular Surgery Respiratory Surgical History: Reports: None. Denies: Thoracentesis GI Surgical History: Reports: Appendectomy, Cholecystectomy, Colonoscopy, Other (See Below). Denies: EGD, Hernia, Abdominal, Hernia, Inguinal, Hernia Repair/ Other, Polypectomy Other GI Surgeries/Procedures: Appendectomy in 1967; colonoscopy in about 2005 with previous evaluation 1994. Laparoscopic cholecystectomy in her 30s. Female Surgical History: Reports: Hysterectomy, Salpingo-Oophorectomy, Other (See Below). Denies: Breast Biopsy, Section, D&C Other Female Surgeries/Procedures: Complete hysterectomy including bilateral salpingo-oophorectomy in her late 30s secondary to dysfunctional uterine bleeding. Endocrine Surgical History: Reports: None. Denies: Thyroid Biopsy Neurological Surgical History: Reports: None. Denies: C-Spine, Discectomy, Laminectomy, Lumbar Spine, Sacral Spine, Spinal Fusion, Thoracic Spine, Vertebroplasty Musculoskeletal Surgical History: Reports: Arthroscopic Procedure, Carpal Tunnel , Joint Replacement, Knee Replacement, Shoulder Surgery, Other (See Below). Denies: Arthroscopic Knee, Ganglion Cyst, ORIF Other Musculoskeletal Surgeries/Procedures:: Left total knee arthroplasty in 2004; bilateral arthroscopic shoulder surgery in 2001 rather than in 1965 as per [facility] records; Left carpal tunnel release 1997. Oncologic Surgical History: Reports: Other (See Below) Other Oncologic Surgeries/Procedures: Incidental cervical cancer by complete hysterectomy as above with no further treatment required. Dermatological Surgical History: Reports: None - Past Imaging History Past Imaging History: Reports: Cardiac Echo (Last echocardiogram on 08/26/18 with ejection fraction of 45% with previous echocardiogram on 05/04/17 and 01/08/18 with findings as above. Additional previous echocardiogram in June 2016 per patient with ejection fraction of 30% by patient history that time.), CAT Scan ( Negative CTA of the chest for PE on 05/04/17 and 02/21/17.), Mammogram (Last on ), Stress Testing (Negative for ischemia Lexiscan Cardiolite evaluation on 04/15/17 with ejection fraction of 31% diastolically and 46% systolically.), Ultrasound (Bilateral renal ultrasounds on 08/22/18.) Social & Family History - Family History HEENT: Reports: None. Denies: Allergic Rhinitis, Glaucoma, Macular Degeneration , Retinal Detachment Cardiac: Reports: CAD, Cardiomyopathy, Heart Failure, High Cholesterol, Hypertension, WA, Other (See Below). Denies: Afib, AICD, Arrhythmia, Blood Clots/VTE/DVT, Bypass, Pacemaker, Syncope Other Cardiac Family History: Father with fatal WA at age 67; 3 brothers with hypertension; brother with hyperlipidemia; son with alcohol-induced cardiomyopathy Respiratory: Reports: None. Denies: Asthma, COPD, PE, Pneumothorax, Sleep Apnea GI: Reports: GERD, Other (See Below). Denies: Celiac Disease, Cholelithiasis, Colon Polyps, GI bleed, Inflammatory Bowel Disease, Irritable Bowel Syndrome, PUD Other GI Family History: GERD in brother : Reports: Diabetic Nephropathy, Dialysis, Renal Disease/Insufficiency, Other (See Below). Denies: Renal Calculus Other Family History: Sister with diabetic nephropathy requiring dialysis OBGYN: Reports: Recurrent Spontaneous Other OBGYN Family History: Sister with recurrent SAB Musculoskeletal: Reports: None. Denies: Arthritis, Gout, Osteoarthritis, RA, SLE Neurological: Reports: None. Denies: Alzheimers Disease, CVA, Dementia, Migraines, MS, Parkinson's, Seizure, TIA, Vertigo Psychiatric: Reports: Anxiety, Depression, Psych Hospitalization(s), Suicide Attempt, Other (See Below). Denies: Abuse, Victim of, ADD, ADHD, PTSD Other Psychiatric Family History: Son with alcohol abuse with secondary alcoholic cardiomyopathy, CHF, anxiety, depression, and successful suicide at age 45 with previous inpatient treatment for his addiction, etc. Endocrine/Metabolic: Reports: Diabetes, type II, Other (See Below). Denies: Diabetes, Type I, Diabetes Mellitus, Type 3c, Hypothyroidism, IDDM Other Endocrine/Metabolic Family History: Sister with AODM with complications as above Hematologic: Reports: None. Denies: SLE Immunologic: Reports: None. Denies: AIDS, HIV, SLE Dermatologic: Reports: None. Denies: Eczema, Psoriasis Oncologic: Reports: Other (See Below) Other Oncologic Family History: Brothers 2 with unknown type of fatal cancer - Tobacco Use Smoking Status *Q: Former Smoker Tobacco Use Within Last Twelve Months: No Years of Tobacco use: 10 Packs/Tins Daily: 1.5 Packs/Tins Daily Comment: Stopped smoking in her 30s. Used Tobacco, but Quit: Yes Smoking Cessation Information Provided To Patient: No Second Hand Smoke Exposure: Yes Source of Second Hand Smoke Exposure: Son smokes Second Hand Smoke Education Provided: Yes (At hospital discharge) - Caffeine Use Caffeine Use: Reports: Soda (2 sodas per day), Tea (3 cups per day). Denies: Coffee, Energy Drinks - Alcohol Use Alcohol Use History: No Days Per Week of Alcohol Use: 0 Number of Drinks Per Day: 0 Number of Drinks Per Day Comment: No previous DWIs, problems with alcohol abuse , etc. Total Drinks Per Week: 0 Alcohol Use in Last Twelve Months: No - Recreational Drug Use Recreational Drug Use: No Drug Use in Last 12 Months: No Recreational Drug Type: Denies: Amphetamines (Speed), Cocaine, Heroin, Inhalants (Glues, Solvents, Aerosols), LSD (Acid), Marijuana/Hashish, Mescaline , Methamphetamine, Morphine, Oxycodone - Living Situation & Occupation Living situation: Reports: (2016, 4 children), with Family (2 sons and [id number]) Occupation: Retired ([employer], retired at age 69) ED ROS GENERAL - Review of Systems Review Of Systems: Comprehensive ROS is negative, except as noted in HPI. ED EXAM, GENERAL - Physical Exam Exam: See Below Exam Limited By: No Limitations General Appearance: Alert, WD/WN, No Apparent Distress Eye Exam: Bilateral Eye: EOMI, Normal Inspection (No nystagmus; she does not have her glasses today.), PERRL Ears: Normal External Exam, Normal Canal, Hearing Grossly Normal, Normal TMs Nose: Normal Mucosa, No Blood, Clear Rhinorrhea (Mild bilateral) Throat/Mouth: Normal Lips, Normal Teeth, Normal Gums, Normal Voice, No Airway Compromise. No: Normal Oropharynx (Trace erythema in the posterior pharynx), Dysphagia, Inflammation, Perioral Cyanosis Head: Atraumatic, Normocephalic. No: Facial Swelling, Facial Tenderness, Sinus Tenderness Neck: Supple, Non-Tender, Full Range of Motion, Carotid Bruit (Mild bilateral carotid bruits). No: Lymphadenopathy (L), Lymphadenopathy (R), Thyromegaly Respiratory/Chest: No Respiratory Distress, No Accessory Muscle Use, Rales ( Moderate bilateral basilar). No: Rhonchi, Wheezing, Pleural Rub, Retractions Cardiovascular: Normal Peripheral Pulses, No Edema, No Gallop, No JVD, No Murmur , Systolic Murmur (Stable 2/6 BATSHEVA of the mitral valve), Extra Beats (Occasional PVCs by monitor). No: Regular Rate, Rhythm (Regular rate), Gallop/S3, Gallop/S4 , Friction Rub Peripheral Pulses: 2+: Radial (L), Radial (R), Dorsalis Pedis (L), Dorsalis Pedis (R) GI/Abdominal: Normal Bowel Sounds, Soft, Non-Tender, No Organomegaly, No Distention, No Abnormal Bruit, No Mass, Pelvis Stable, Other (Obese). No: Guarding (Female) Exam: Deferred Rectal (Female) Exam: Deferred Back Exam: Full Range of Motion, Other (Mild kyphosis). No: CVA Tenderness (L) , CVA Tenderness (R), Muscle Spasm, Paraspinal Tenderness, Vertebral Tenderness Extremities: Normal Inspection, Normal Range of Motion, Non-Tender, No Pedal Edema, Normal Capillary Refill. No: Charlee's Sign Neurological: Alert, Oriented, CN II-XII Intact, Normal Cognition, Normal Gait, Normal Reflexes (Negative Babinski's), No Motor/Sensory Deficits Psychiatric: Normal Affect, Normal Mood Skin Exam: Warm, Dry, Intact, Normal Color, No Rash. No: Diaphoretic, Tattoo(s) , Wound/Incision Lymphatic: No Adenopathy EKG INTERPRETATION EKG Date: 06/26/19 Time: 10:14 Rhythm: NSR Rate (Beats/Min): 85 Tiro: Normal (Left) P-Wave: Enlarged (Moderate diffuse biphasic P waves with mild poor R-wave progression in the anterior leads) QRS: Normal (0.10 seconds representing repolarization changes with T-wave inversion in lead aVL) ST-T: Other (As above) QT: Normal NE/PQ Interval: 0.17 seconds Comparison: Change From Previous EKG (As above since 03/01/18) EKG Interpretation Comments: 1. No acute ischemic changes 2. Atrial enlargement-left 3. Repolarization changes Course - Vital Signs Last Recorded V/S: Last Vital Signs Temp 36.8 C 06/26/19 10:04 Pulse 75 06/26/19 11:22 Resp 24 H 06/26/19 11:04 BP 152/89 H 06/26/19 11:22 Pulse Ox 100 06/26/19 11:22 Vital Signs - 24 hr 06/26/19 06/26/19 06/26/19 10:04 10:06 10:13 Temperature [ 36.8 C Temporal] Pulse, 98 Peripheral [ Right Pulse Oximetry] Respiratory 22 H Rate Blood Pressure 154/83 H [Left Upper Arm ] O2 Sat by Pulse 83 L 98 Oximetry O2 Sat by Pulse 98 Oximetry [ Nasal Cannula] 06/26/19 06/26/19 06/26/19 10:35 10:49 11:04 Temperature [ Temporal] Pulse, 85 89 88 Peripheral [ Right Pulse Oximetry] Respiratory 21 H 26 H 24 H Rate Blood Pressure 163/84 H 157/71 H 152/89 H [Left Upper Arm ] O2 Sat by Pulse 100 100 100 Oximetry O2 Sat by Pulse Oximetry [ Nasal Cannula] 06/26/19 11:22 Temperature [ Temporal] Pulse, 75 Peripheral [ Right Pulse Oximetry] Respiratory Rate Blood Pressure 152/89 H [Left Upper Arm ] O2 Sat by Pulse 100 Oximetry O2 Sat by Pulse Oximetry [ Nasal Cannula] - Orders/Labs/Meds Orders: Active Orders 24 hr Category Date Time Status Cardiac Monitoring [RC] CONTINUOUS Care 06/26/19 10:06 Active Communication Order [RC] ROUTINE Care 06/26/19 10:06 Active EKG Documentation Completion [RC] ASDIRECTED Care 06/26/19 10:07 Active Oxygen Therapy, ED [RC] CONTINUOUS Care 06/26/19 10:06 Active Peripheral IV Care [RC] . DIRECTED Care 06/26/19 10:07 Active Pulse Oximetry [RC] CONTINUOUS Care 06/26/19 10:06 Active Up With Assistance [RC] ASDIRECTED Care 06/26/19 10:06 Active Nothing Per Oral Diet [DIET] Diet 06/26/19 Breakfast Active Chest 1V Frontal [CR] Stat Exams 06/26/19 10:06 Taken CULTURE BLOOD [BC] Stat Lab 06/26/19 10:25 Received CULTURE BLOOD [BC] Stat Lab 06/26/19 10:40 Received CULTURE SPUTUM + SMEAR [RM] Urgent Lab 06/26/19 10:06 Ordered CULTURE STREP A CONFIRMATION [RM] Stat Lab 06/26/19 10:20 Results STREP SCRN A RAPID W CULT CONF [RM] Stat Lab 06/26/19 10:20 Results Sodium Chloride 0.9% [Saline Flush] Med 06/26/19 10:06 Active 10 ml FLUSH ASDIRECTED PRN Blood Culture x2 Reflex Set [OM.PC] Stat Oth 06/26/19 10:06 Ordered Isolation [COMM] Routine Oth 06/26/19 10:07 Active Obtain Past Medical Record [OM.PC] Stat Oth 06/26/19 10:06 Active Peripheral IV Insertion Adult [OM.PC] Stat Oth 06/26/19 10:06 Ordered Resuscitation Status Routine Resus Stat 06/26/19 10:06 Ordered Medication Orders Sodium Chloride (Saline Flush) 10 ml FLUSH ASDIRECTED PRN PRN Reason: Keep Vein Open Last Admin: 06/26/19 11:12 Dose: 10 ml Labs: Laboratory Tests 06/26/19 06/26/19 06/26/19 Range/Units 10:25 10:25 10:25 WBC 13.1 H (4.0-10.2) K/uL RBC 3.57 L (3.77-5.09) M/uL Hgb 10.5 L D (11.7-15.5) g/dL Hct 34.1 (34.0-46.0) % MCV 95.5 (84.0-98.0) fL MCH 29.4 (28.2-33.3) pg MCHC 30.8 L (31.7-36.0) g/dL RDW 13.2 (11.2-14.1) % Plt Count 153 (150-350) K/uL Neut % (Auto) 86.2 H (45.0-80.0) % Lymph % (Auto) 8.1 L (10.0-50.0) % [place] % (Auto) 5.4 (2.0-14.0) % Eos % (Auto) 0.1 (0.0-5.0) % Baso % (Auto) 0.2 (0.0-2.0) % Neut # (Auto) 11.34 H (1.40-7.00) K/uL Lymph # (Auto) 1.06 (0.50-3.50) K/uL [place] # (Auto) 0.71 (0.00-1.00) K/uL Eos # (Auto) 0.01 (0.00-0.50) K/uL Baso # (Auto) 0.02 (0.00-0.20) K/uL PT 11.9 (9.5-12.0) SEC INR 1.2 APTT 25.8 (24.5-32.8) SEC D-Dimer, Quantitative 419 H (0-400) ng/mL Sodium (136-145) mmol/L Potassium (3.5-5.1) mmol/L Chloride (98-107) mmol/L Carbon Dioxide (21.0-32.0) mmol/L BUN (7-18) mg/dL Creatinine (0.51-1.17) mg/dL Est Cr Clr Drug Dosing Estimated GFR (MDRD) mL/min Glucose (74-106) mg/dL Lactic Acid (0.4-2.0) mmol/L Calcium (8.5-10.1) mg/dL Magnesium (1.8-2.4) mg/dL Total Bilirubin (0.2-1.0) mg/dL AST (15-37) U/L ALT (12-78) U/L Alkaline Phosphatase (46-116) IU/L Creatine Kinase (26-308) U/L Creatine Kinase Index (0.0-2.5) % CK-MB (CK-2) (0.00-3.60) ng/mL Troponin I (0.000-0.056) ng/mL NT-Pro-B Natriuret Pep (0-125) pg/mL Total Protein (6.4-8.2) g/dL Albumin (3.4-5.0) g/dL TSH, Ultra Sensitive (0.358-3.740) mIU/mL 06/26/19 06/26/19 Range/Units 10:25 10:25 WBC (4.0-10.2) K/uL RBC (3.77-5.09) M/uL Hgb (11.7-15.5) g/dL Hct (34.0-46.0) % MCV (84.0-98.0) fL MCH (28.2-33.3) pg MCHC (31.7-36.0) g/dL RDW (11.2-14.1) % Plt Count (150-350) K/uL Neut % (Auto) (45.0-80.0) % Lymph % (Auto) (10.0-50.0) % [place] % (Auto) (2.0-14.0) % Eos % (Auto) (0.0-5.0) % Baso % (Auto) (0.0-2.0) % Neut # (Auto) (1.40-7.00) K/uL Lymph # (Auto) (0.50-3.50) K/uL [place] # (Auto) (0.00-1.00) K/uL Eos # (Auto) (0.00-0.50) K/uL Baso # (Auto) (0.00-0.20) K/uL PT (9.5-12.0) SEC INR APTT (24.5-32.8) SEC D-Dimer, Quantitative (0-400) ng/mL Sodium 143 (136-145) mmol/L Potassium 3.5 (3.5-5.1) mmol/L Chloride 106 (98-107) mmol/L Carbon Dioxide 26.1 (21.0-32.0) mmol/L BUN 39 H (7-18) mg/dL Creatinine 1.42 H (0.51-1.17) mg/dL Est Cr Clr Drug Dosing TNP Estimated GFR (MDRD) 36 mL/min Glucose 231 H (74-106) mg/dL Lactic Acid 1.3 (0.4-2.0) mmol/L Calcium 8.3 L (8.5-10.1) mg/dL Magnesium 1.8 (1.8-2.4) mg/dL Total Bilirubin 1.2 H (0.2-1.0) mg/dL AST 19 (15-37) U/L ALT 18 (12-78) U/L Alkaline Phosphatase 75 (46-116) IU/L Creatine Kinase 86 (26-308) U/L Creatine Kinase Index 0.8 (0.0-2.5) % CK-MB (CK-2) 0.70 (0.00-3.60) ng/mL Troponin I 0.013 (0.000-0.056) ng/mL NT-Pro-B Natriuret Pep 14359 H (0-125) pg/mL Total Protein 6.8 (6.4-8.2) g/dL Albumin 2.7 L (3.4-5.0) g/dL TSH, Ultra Sensitive 0.478 (0.358-3.740) mIU/mL Meds: Medications Generic Name Dose Route Start Last Admin Trade Name Freq PRN Reason Stop Dose Admin Sodium Chloride 10 ml 06/26/19 10:06 06/26/19 11:12 Saline Flush FLUSH 10 ml ASDIRECTED PRN Administration Keep Vein Open - Radiology Interpretation Free Text/Narrative:: environmental monitoring technician shows sinus rhythm with heart rate in the 80s to 90s with mild to moderate occasional multiform PVCs with very occasional PACs with no other arrhythmia, tachycardia, etc. Chest x-ray, portable, shows moderately elevated right hemidiaphragm with moderate mostly centralized CHF with mild cardiomegaly and moderate prominence of the proximal aortic arch. Moderate COPD changes with probable left lower lobe atelectasis versus beginning pulmonary infiltrates. No pneumothorax. Departure - Departure Time of Disposition: 11:30 Disposition: Admitted As Inpatient 66 Condition: Good Clinical Impression: D-dimer, elevated, PAC (premature atrial contraction), Tobacco abuse counseling , Peptic reflux disease, Hypomagnesemia, Hypoalbuminemia CHF (congestive heart failure) Qualifiers: Heart failure type: unspecified Heart failure chronicity: acute on chronic Qualified Code(s): I50.9 - Heart failure, unspecified Anemia Qualifiers: Anemia type: iron deficiency Iron deficiency anemia type: unspecified iron deficiency Qualified Code(s): D50.9 - Iron deficiency anemia, unspecified Coronary artery disease Qualifiers: Coronary Disease-Associated Artery/Lesion type: [place] artery [place] vs. transplanted heart: apache heart Associated angina: with stable angina Qualified Code(s): I25.118 - Atherosclerotic heart disease of apache coronary artery with other forms of angina pectoris COPD (chronic obstructive pulmonary disease) Qualifiers: COPD type: emphysema Emphysema type: panlobular Qualified Code(s): J43.1 - Panlobular emphysema Hypertension Qualifiers: Hypertension type: essential hypertension Qualified Code(s): I10 - Essential ( primary) hypertension Diabetes mellitus Qualifiers: Diabetes mellitus type: type 2 Diabetes mellitus [facility] insulin use: with [facility] use Diabetes mellitus complication status: with kidney complications Diabetes mellitus complication detail: with chronic kidney disease Chronic kidney disease stage: stage 3 (moderate) Qualified Code(s): E11.22 - Type 2 diabetes mellitus with diabetic chronic kidney disease Osteoarthritis Qualifiers: Osteoarthritis location: multiple joints Osteoarthritis type: primary Qualified Code(s): M89.49 - Other hypertrophic osteoarthropathy, multiple sites Hyperlipidemia Qualifiers: Hyperlipidemia type: unspecified Qualified Code(s): E78.5 - Hyperlipidemia, unspecified Diabetic nephropathy Qualifiers: Diabetes mellitus type: type 2 Qualified Code(s): E11.21 - Type 2 diabetes mellitus with diabetic nephropathy Referrals: Velia Alfredo, [employer] [Primary Care Provider] - Forms: ED Department Discharge Sepsis Event Note - Focused Exam Vital Signs: Vital Signs Temp Pulse Resp BP Pulse Ox Pulse Ox 06/26/19 11:22 75 152/89 H 100 06/26/19 11:04 88 24 H 152/89 H 100 06/26/19 10:49 89 26 H 157/71 H 100 06/26/19 10:35 85 21 H 163/84 H 100 06/26/19 10:13 98 06/26/19 10:06 98 06/26/19 10:04 36.8 C 98 22 H 154/83 H 83 L Date Exam was Performed: 06/26/19 Time Exam was Performed: 11:25 - Problem List & Annotations (1) CHF (congestive heart failure) SNOMED Code(s): 46562817 Code(s): I50.9 - HEART FAILURE, UNSPECIFIED Status: Acute Priority: High Onset Date: 02/21/17 Annotation/Comment:: No chest pain or anginal type symptoms with patient not taking her medications for the last 24+ hours. History of systolic dysfunction with last echocardiogram on 08/26/18 with an ejection fraction of 45% at that time and otherwise findings as above. Note history of pulmonary hypertension. Initiate IV Lasix therapy with caution secondary to history of renal insufficiency. Rule out [place] orders with chest pain protocol not initiated in the emergency room secondary to absence of anginal complaints. Cardiology consultation depending on her clinical course. Medication compliance strongly encouraged. Finances are an issue. She had to restart her as needed O2 therapy yesterday evening as above with O2 sat of only 85% on room air in the emergency room. Qualifiers: Heart failure type: unspecified Heart failure chronicity: acute on chronic Qualified Code(s): I50.9 - Heart failure, unspecified (2) Coronary artery disease SNOMED Code(s): 05033926 Code(s): I25.10 - ATHSCL HEART DISEASE OF [place] CORONARY ARTERY W/O ANG PCTRS Status: Acute Priority: High Onset Date: 02/22/17 Annotation/ Comment:: As above Qualifiers: Coronary Disease-Associated Artery/Lesion type: [place] artery [place] vs. transplanted heart: [place] heart Associated angina: with stable angina Qualified Code(s): I25.118 - Atherosclerotic heart disease of [place] coronary artery with other forms of angina pectoris (3) D-dimer, elevated SNOMED Code(s): 364344356 Code(s): R79.89 - OTHER SPECIFIED ABNORMAL FINDINGS OF BLOOD CHEMISTRY Status: Acute Priority: High Onset Date: 02/21/17 Annotation/Comment:: Note previous negative workup as above. No clinical evidence of DVT or PE by today's exam. Initiate subcutaneous Lovenox at DVT prophylactic dose on admission. (4) PAC (premature atrial contraction) SNOMED Code(s): 399299179 Code(s): I49.1 - ATRIAL PREMATURE DEPOLARIZATION Status: Acute Priority: Medium Onset Date: 06/26/19 Annotation/Comment:: Newly diagnosed with no significant symptoms at this time. History of PVCs, etc. as above. (5) COPD (chronic obstructive pulmonary disease) SNOMED Code(s): 98969622 Code(s): J44.9 - CHRONIC OBSTRUCTIVE PULMONARY DISEASE, UNSPECIFIED Status : Chronic Priority: Medium Annotation/Comment:: Possible beginning left lower lobe pneumonia. Note mild WBC elevation possibly secondary to stress reaction. Initiate IV Rocephin and IV Cipro therapy with additional nebulizer treatments during this hospitalization. Evaluation of COVID-19 was considered with delay of evaluation for the time being secondary to CHF diagnosis as above. Standard droplet precautions will be initiated, however. Qualifiers: COPD type: emphysema Emphysema type: panlobular Qualified Code(s): J43.1 - Panlobular emphysema (6) Diabetes mellitus SNOMED Code(s): 47105776 Code(s): E11.9 - TYPE 2 DIABETES MELLITUS WITHOUT COMPLICATIONS Status: Chronic Priority: Medium Annotation/Comment:: Finances are An issue. Home Accu-Cheks ranging in the [id number] with twice a day Accu-Cheks at home by her history. Glycosylated hemoglobin in the a.m. Compliance with diet and encourage with current obesity. Qualifiers: Diabetes mellitus type: type 2 Diabetes mellitus terminal 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 insulin use: with [facility] use Diabetes mellitus complication status: with kidney complications Diabetes mellitus complication detail: with chronic kidney disease Chronic kidney disease stage: stage 3 (moderate) Qualified Code(s): E11.22 - Type 2 diabetes mellitus with diabetic chronic kidney disease; N18.3 - Chronic kidney disease, stage 3 (moderate); Z79.4 - FDC (current) use of insulin (7) Hyperlipidemia SNOMED Code(s): 88498555 Code(s): E78.5 - HYPERLIPIDEMIA, UNSPECIFIED Status: Chronic Priority: Medium Annotation/Comment:: Currently under therapy. Lipid panel in the a.m. Qualifiers: Hyperlipidemia type: unspecified Qualified Code(s): E78.5 - Hyperlipidemia , unspecified (8) Hypertension SNOMED Code(s): 96838668 Code(s): I10 - ESSENTIAL (PRIMARY) HYPERTENSION Status: Chronic Priority : Medium Annotation/Comment:: Blood Pressures under moderate control in the emergency room with recent medication noncompliance as above. Qualifiers: Hypertension type: essential hypertension Qualified Code(s): I10 - Essential (primary) hypertension (9) Osteoarthritis SNOMED Code(s): 614338922 Code(s): M19.90 - UNSPECIFIED OSTEOARTHRITIS, UNSPECIFIED SITE Status: Chronic Priority: High Annotation/Comment:: Stable by history Qualifiers: Osteoarthritis location: multiple joints Osteoarthritis type: primary Qualified Code(s): M89.49 - Other hypertrophic osteoarthropathy, multiple sites (10) Peptic reflux disease SNOMED Code(s): 983465044 Code(s): K21.9 - GASTRO-ESOPHAGEAL REFLUX DISEASE WITHOUT ESOPHAGITIS Status: Chronic Priority: Medium Annotation/Comment:: Stable by history. (11) Tobacco abuse counseling SNOMED Code(s): 345439638, 897745101, 203520182 Code(s): Z71.6 - TOBACCO ABUSE COUNSELING Status: Chronic Priority: Medium Annotation/Comment:: Tobacco smoke exposure was once again extensively discussed with the patient and her son with tobacco cessation information to be provided at discharge. (12) Anemia SNOMED Code(s): 851144999 Code(s): D64.9 - ANEMIA, UNSPECIFIED Status: Acute Priority: High Onset Date: 02/27/18 Annotation/Comment:: History of iron deficiency with history of medication noncompliance of her iron sulfate for quite some time. Reinitiate iron sulfate supplementation. Recommend repeat iron studies about one month after discharge. Qualifiers: Anemia type: iron deficiency Iron deficiency anemia type: unspecified iron deficiency Qualified Code(s): D50.9 - Iron deficiency anemia, unspecified (13) Hypoalbuminemia SNOMED Code(s): 239705174 Code(s): E88.09 - OTH DISORDERS OF PLASMA-PROTEIN METABOLISM, NEC Status: Chronic Priority: Medium Onset Date: 02/21/17 Annotation/Comment:: High- protein Glucerna supplements as snacks twice a day was once again initiated during this hospitalization with close follow-up by regular providers. (14) Hypomagnesemia SNOMED Code(s): 074631002 Code(s): E83.42 - HYPOMAGNESEMIA Status: Acute Priority: Medium Onset Date: 02/21/17 Annotation/Comment:: Note medication noncompliance as above with continued close observation by accepting physicians and regular providers. (15) Diabetic nephropathy Status: Chronic Priority: Medium Annotation/Comment:: As above Qualifiers: Diabetes mellitus type: type 2 Qualified Code(s): E11.21 - Type 2 diabetes mellitus with diabetic nephropathy - Problem List Review Problem List Initiated/Reviewed/Updated: Yes - My Orders Last 24 Hours: My Active Orders 06/26/19 10:06 Cardiac Monitoring [RC] CONTINUOUS Communication Order [RC] ROUTINE Oxygen Therapy, ED [RC] CONTINUOUS Pulse Oximetry [RC] CONTINUOUS Up With Assistance [RC] ASDIRECTED Chest 1V Frontal [CR] Stat CULTURE SPUTUM + SMEAR [RM] Urgent Sodium Chloride 0.9% [Saline Flush] 10 ml FLUSH ASDIRECTED PRN Blood Culture x2 Reflex Set [OM.PC] Stat Obtain Past Medical Record [OM.PC] Stat Peripheral IV Insertion Adult [OM.PC] Stat Resuscitation Status Routine 06/26/19 10:07 EKG Documentation Completion [RC] ASDIRECTED Peripheral IV Care [RC] . DIRECTED Isolation [COMM] Routine 06/26/19 10:20 CULTURE STREP A CONFIRMATION [RM] Stat STREP SCRN A RAPID W CULT CONF [RM] Stat 06/26/19 10:25 CULTURE BLOOD [BC] Stat 06/26/19 10:40 CULTURE BLOOD [BC] Stat 06/26/19 Breakfast Nothing Per Oral Diet [DIET] - Assessment/Plan Admission H&P: Please use this note as an admission H&P Last 24 Hours: My Active Orders 06/26/19 10:06 Cardiac Monitoring [RC] CONTINUOUS Communication Order [RC] ROUTINE Oxygen Therapy, ED [RC] CONTINUOUS Pulse Oximetry [RC] CONTINUOUS Up With Assistance [RC] ASDIRECTED Chest 1V Frontal [CR] Stat CULTURE SPUTUM + SMEAR [RM] Urgent Sodium Chloride 0.9% [Saline Flush] 10 ml FLUSH ASDIRECTED PRN Blood Culture x2 Reflex Set [OM.PC] Stat Obtain Past Medical Record [OM.PC] Stat Peripheral IV Insertion Adult [OM.PC] Stat Resuscitation Status Routine 06/26/19 10:07 EKG Documentation Completion [RC] ASDIRECTED Peripheral IV Care [RC] . DIRECTED Isolation [COMM] Routine 06/26/19 10:20 CULTURE STREP A CONFIRMATION [RM] Stat STREP SCRN A RAPID W CULT CONF [RM] Stat 06/26/19 10:25 CULTURE BLOOD [BC] Stat 06/26/19 10:40 CULTURE BLOOD [BC] Stat 06/26/19 Breakfast Nothing Per Oral Diet [DIET] Assessment:: As above Plan: As above. Extensive precautions were given to the patient and her son, who are in agreement with the treatment plan. The patient will require about 3-4 days of inpatient/acute care secondary to multiple health problems as above.
[2019-06-26 11:02] LABS: PTT,PARTIAL THROMBOPLSTIN TIME 25.8 SEC (24.5-32.8)
[2019-06-26] MEDS: Sodium Chloride 0.9% 10 ML Syringe FLUSH PRN ×3 (11:12→13:43)
[2019-06-26 11:13] LABS: CHLORIDE,CL 106 mmol/L (98-107); SODIUM,NA 143 mmol/L (136-145)
[2019-06-26] MEDS ORDERED: Temazepam 15 MG Cap PO PRN (11:43)
[2019-06-26] MEDS ORDERED: Albuterol/Ipratropium 3.0-0.5 MG/3 ML Neb Soln NEB PRN (11:43)
[2019-06-26] MEDS ORDERED: Fluconazole 100 MG Tab PO ONE (11:58)
[2019-06-26] MEDS ORDERED: Ondansetron 4 MG/2 ML SDV IVPUSH PRN (11:59)
[2019-06-26] MEDS ORDERED: Albuterol 0.083% 2.5 MG/3 ML Neb Soln NEB PRN (12:00)
[2019-06-26] MEDS ORDERED: Acetaminophen 325 MG Tab PO PRN (12:00)
[2019-06-26] MEDS ORDERED: Enoxaparin 40 MG/0.4 ML Syringe SUBCUT SCH (12:00)
[2019-06-26] MEDS: Carvedilol 25 MG Tab PO SCH ×2 (12:53→17:09)
[2019-06-26] MEDS: Potassium Chloride 20 MEQ Tab.ER PO SCH ×2 (12:54→17:09)
[2019-06-26] MEDS: Furosemide 40 MG/4 ML VIAL IVPUSH SCH ×2 (12:54→20:52)
[2019-06-26] MEDS: Losartan 50 MG Tab PO SCH (12:54)
[2019-06-26] MEDS: Sodium Chloride 0.9% 10 ML Syringe FLUSH SCH ×2 (12:56→20:52)
[2019-06-26] MEDS: cefTRIAXone 1 GM in Sodium Chloride 0.9% 100 ML IV SCH (12:56)
[2019-06-26] MEDS: Levofloxacin/Dextrose 5%-Water 500 MG in Premix Bag 1 BAG IV SCH (13:43)
[2019-06-26] MEDS: Albuterol/Ipratropium 3.0-0.5 MG/3 ML Neb Soln NEB SCH ×2 (13:44→20:52)
[2019-06-26] MEDS: Dextromethorphan/guaiFENesin 600-30 MG Tab.ER PO SCH (17:09)
[2019-06-26] MEDS: Dorzolamide 2% Ophth Soln 10 ML Bottle EYEBOTH SCH (17:11)
[2019-06-26] MEDS: Lactobacillus Rhamnosus GG (Probiotic) Cap PO SCH (17:11)
[2019-06-26] MEDS: Insulin Lispro 100 Units/ML 3 ML Vial SUBCUT SCH ×2 (17:29→21:33)
[2019-06-26] MEDS: Clotrimazole 1% Crm 30 GM Tube TOP SCH (17:32)
[2019-06-26] MEDS: atorvaSTATin 40 MG Tab PO SCH (20:51)
[2019-06-26] MEDS: Latanoprost 0.005% Ophth Soln 2.5 ML Bottle EYEBOTH SCH (20:52)
[2019-06-26] MEDS: Budesonide 0.5 MG/2 ML Neb Susp NEB SCH (20:52)
[2019-06-27] MEDS: cefTRIAXone 1 GM in Sodium Chloride 0.9% 100 ML IV SCH ×2 (00:30→11:52)
[2019-06-27] MEDS: Sodium Chloride 0.9% 10 ML Syringe FLUSH SCH ×4 (00:31→20:15)
[2019-06-27] MEDS: Albuterol/Ipratropium 3.0-0.5 MG/3 ML Neb Soln NEB SCH ×4 (01:13→20:27)
[2019-06-27] MEDS: Furosemide 40 MG/4 ML VIAL IVPUSH SCH ×2 (03:46→11:51)
[2019-06-27] MEDS: Potassium Chloride 20 MEQ Tab.ER PO SCH ×3 (07:46→20:07)
[2019-06-27] MEDS: Dextromethorphan/guaiFENesin 600-30 MG Tab.ER PO SCH ×2 (07:46→20:08)
[2019-06-27] MEDS: Losartan 50 MG Tab PO SCH (07:46)
[2019-06-27] MEDS: Lactobacillus Rhamnosus GG (Probiotic) Cap PO SCH ×2 (07:46→20:08)
[2019-06-27] MEDS: Aspirin 81 MG Tab.EC PO SCH (07:47)
[2019-06-27] MEDS: Carvedilol 25 MG Tab PO SCH ×2 (07:47→20:09)
[2019-06-27] MEDS: Insulin Lispro 100 Units/ML 3 ML Vial SUBCUT SCH ×4 (07:48→20:23)
[2019-06-27] MEDS: Budesonide 0.5 MG/2 ML Neb Susp NEB SCH ×2 (07:51→20:27)
[2019-06-27] MEDS: Dorzolamide 2% Ophth Soln 10 ML Bottle EYEBOTH SCH ×2 (07:52→20:20)
[2019-06-27] MEDS: Clotrimazole 1% Crm 30 GM Tube TOP SCH ×2 (07:52→20:13)
[2019-06-27] MEDS ORDERED: Ferrous Sulfate 325 MG Tab PO SCH ×2 (08:00→18:00)
[2019-06-27 08:13] LABS: HEMOGLOBIN A1C 7.2 % (4.3-5.7)
--- NOTE | 2019-06-27 09:11 | PCM.PN ---
- General Info Date of Service: 06/27/19 Admission Dx/Problem (Free Text): 1. CHF 2. Left lower lobe pneumonia 3. COPD-O2 dependent 4. IDDM Functional Status: Reports: Pain Controlled, Tolerating Diet, Ambulating, Urinating, Incentive Spirometry. Denies: New Symptoms Pain Score: 0 - Review of Systems General: Reports: Weakness (Nonspecific generalizedimproved). Denies: Fever, Fatigue, Malaise, Chills, Night Sweats, Appetite (Good) HEENT: Reports: Glasses (Not wearing). Denies: Ear Pain, Eye Pain, Headaches, Sinus Congestion, Sore Throat, Rhinitis, Visual Changes, Other Pulmonary: Reports: Shortness of Breath, Cough, Sputum (Clear). Denies: Pleuritic Chest Pain, Hemoptysis, Wheezing Cardiovascular: Reports: No Symptoms, Dyspnea on Exertion. Denies: Chest Pain, Palpitations, Orthopnea, Edema, Lightheadedness Gastrointestinal: Reports: No Symptoms, Other (Normal bowel movement yesterday afternoon per patient). Denies: Abdominal Pain, Constipation, Decreased Appetite, Diarrhea, Difficulty Swallowing, Hematochezia, Melena, Nausea, Vomiting Genitourinary: Reports: No Symptoms. Denies: Dysuria, Frequency, Burning, Urgency, Incontinence, Hematuria, Retention, Flank Pain Musculoskeletal: Reports: No Symptoms. Denies: Neck Pain, Shoulder Pain, Arm Pain, Back Pain, Leg Pain Skin: Reports: No Symptoms. Denies: Diaphoresis, Bruising Neurological: Reports: Weakness (As above). Denies: Confusion, Dizziness, Headache, Numbness, Paresthesia, Pre-Existing Deficit, Tingling Psychiatric: Reports: No Symptoms. Denies: Confusion, Depression, Anxiety, Agitation, Cravings, Hallucinations - Patient Data Vitals - Most Recent: Last Vital Signs Temp 36.8 C 06/27/19 07:58 Pulse 75 06/27/19 07:58 Resp 20 06/27/19 07:58 BP 117/69 06/27/19 07:58 Pulse Ox 95 06/27/19 07:58 Vital Signs - 24 hr 06/26/19 06/26/19 06/26/19 10:04 10:06 10:13 Temperature [ 36.8 C Temporal] Pulse, Peripheral Pulse, 98 Peripheral [ Right Pulse Oximetry] Respiratory 22 H Rate Blood Pressure Blood Pressure 154/83 H [Left Upper Arm ] O2 Sat by Pulse 83 L 98 Oximetry O2 Sat by Pulse 98 Oximetry [ Nasal Cannula] 06/26/19 06/26/19 06/26/19 10:35 10:49 11:04 Temperature [ Temporal] Pulse, Peripheral Pulse, 85 89 88 Peripheral [ Right Pulse Oximetry] Respiratory 21 H 26 H 24 H Rate Blood Pressure Blood Pressure 163/84 H 157/71 H 152/89 H [Left Upper Arm ] O2 Sat by Pulse 100 100 100 Oximetry O2 Sat by Pulse Oximetry [ Nasal Cannula] 06/26/19 06/26/19 06/26/19 11:22 11:40 11:43 Temperature [ 37.0 C Temporal] Pulse, Peripheral Pulse, 75 84 Peripheral [ Right Pulse Oximetry] Respiratory 27 H Rate Blood Pressure Blood Pressure 152/89 H 151/77 H [Left Upper Arm ] O2 Sat by Pulse 100 100 98 Oximetry O2 Sat by Pulse Oximetry [ Nasal Cannula] 06/26/19 06/26/19 06/26/19 12:53 12:54 13:17 Temperature [ 36.9 C Temporal] Pulse, 84 Peripheral Pulse, 94 Peripheral [ Right Pulse Oximetry] Respiratory 21 H Rate Blood Pressure 151/77 H 151/77 H Blood Pressure 139/83 [Left Upper Arm ] O2 Sat by Pulse 94 L Oximetry O2 Sat by Pulse Oximetry [ Nasal Cannula] 06/26/19 06/26/19 06/26/19 15:45 17:09 20:00 Temperature [ 37.1 C 37.0 C Temporal] Pulse, 76 Peripheral Pulse, 71 Peripheral [ Right Pulse Oximetry] Respiratory 20 20 Rate Blood Pressure 125/72 Blood Pressure 128/108 H 105/58 L [Left Upper Arm ] O2 Sat by Pulse 99 91 L Oximetry O2 Sat by Pulse Oximetry [ Nasal Cannula] 06/27/19 06/27/19 06/27/19 00:00 03:49 07:46 Temperature [ 36.6 C 36.5 C Temporal] Pulse, Peripheral Pulse, 70 70 Peripheral [ Right Pulse Oximetry] Respiratory 20 20 Rate Blood Pressure 117/69 Blood Pressure 120/63 123/78 [Left Upper Arm ] O2 Sat by Pulse 95 98 Oximetry O2 Sat by Pulse Oximetry [ Nasal Cannula] 06/27/19 06/27/19 07:47 07:58 Temperature [ 36.8 C Temporal] Pulse, 75 Peripheral Pulse, 75 Peripheral [ Right Pulse Oximetry] Respiratory 20 Rate Blood Pressure 117/69 Blood Pressure 117/69 [Left Upper Arm ] O2 Sat by Pulse 95 Oximetry O2 Sat by Pulse Oximetry [ Nasal Cannula] Weight - Most Recent: 82.735 kg I&O - Last 24 Hours: Intake & Output 06/26/19 06/27/19 06/27/19 22:59 06:59 14:59 Intake Total 180 Output Total 550 400 Balance -370 -400 Imaging Impressions - Last 24 Hours: desk monitor shows improved occasional PVCs and PACs with overall heart rate averaging in the 70s. Lab Results Last 24 Hours: Laboratory Results - last 24 hr 06/26/19 06/26/19 06/26/19 Range/Units 10:25 10:25 10:25 WBC 13.1 H (4.0-10.2) K/uL RBC 3.57 L (3.77-5.09) M/uL Hgb 10.5 L D (11.7-15.5) g/dL Hct 34.1 (34.0-46.0) % MCV 95.5 (84.0-98.0) fL MCH 29.4 (28.2-33.3) pg MCHC 30.8 L (31.7-36.0) g/dL RDW 13.2 (11.2-14.1) % Plt Count 153 (150-350) K/uL Neut % (Auto) 86.2 H (45.0-80.0) % Lymph % (Auto) 8.1 L (10.0-50.0) % [place] % (Auto) 5.4 (2.0-14.0) % Eos % (Auto) 0.1 (0.0-5.0) % Baso % (Auto) 0.2 (0.0-2.0) % Neut # (Auto) 11.34 H (1.40-7.00) K/uL Lymph # (Auto) 1.06 (0.50-3.50) K/uL [place] # (Auto) 0.71 (0.00-1.00) K/uL Eos # (Auto) 0.01 (0.00-0.50) K/uL Baso # (Auto) 0.02 (0.00-0.20) K/uL PT 11.9 (9.5-12.0) SEC INR 1.2 APTT 25.8 (24.5-32.8) SEC D-Dimer, Quantitative 419 H (0-400) ng/mL Sodium (136-145) mmol/L Potassium (3.5-5.1) mmol/L Chloride (98-107) mmol/L Carbon Dioxide (21.0-32.0) mmol/L BUN (7-18) mg/dL Creatinine (0.51-1.17) mg/dL Est Cr Clr Drug Dosing Estimated GFR (MDRD) mL/min Glucose (74-106) mg/dL POC Glucose (65-110) mg/dl Hemoglobin A1c (4.3-5.7) % Lactic Acid (0.4-2.0) mmol/L Calcium (8.5-10.1) mg/dL Magnesium (1.8-2.4) mg/dL Total Bilirubin (0.2-1.0) mg/dL AST (15-37) U/L ALT (12-78) U/L Alkaline Phosphatase (46-116) IU/L Creatine Kinase (26-308) U/L Creatine Kinase Index (0.0-2.5) % CK-MB (CK-2) (0.00-3.60) ng/mL Troponin I (0.000-0.056) ng/mL NT-Pro-B Natriuret Pep (0-125) pg/mL Total Protein (6.4-8.2) g/dL Albumin (3.4-5.0) g/dL Triglycerides (30-150) mg/dL Cholesterol (100-200) mg/dL LDL Cholesterol, Calc (0-100) mg/dL HDL Cholesterol (40-60) mg/dL TSH, Ultra Sensitive (0.358-3.740) mIU/mL 06/26/19 06/26/19 06/26/19 Range/Units 10:25 10:25 14:43 WBC (4.0-10.2) K/uL RBC (3.77-5.09) M/uL Hgb (11.7-15.5) g/dL Hct (34.0-46.0) % MCV (84.0-98.0) fL MCH (28.2-33.3) pg MCHC (31.7-36.0) g/dL RDW (11.2-14.1) % Plt Count (150-350) K/uL Neut % (Auto) (45.0-80.0) % Lymph % (Auto) (10.0-50.0) % [place] % (Auto) (2.0-14.0) % Eos % (Auto) (0.0-5.0) % Baso % (Auto) (0.0-2.0) % Neut # (Auto) (1.40-7.00) K/uL Lymph # (Auto) (0.50-3.50) K/uL [place] # (Auto) (0.00-1.00) K/uL Eos # (Auto) (0.00-0.50) K/uL Baso # (Auto) (0.00-0.20) K/uL PT (9.5-12.0) SEC INR APTT (24.5-32.8) SEC D-Dimer, Quantitative (0-400) ng/mL Sodium 143 (136-145) mmol/L Potassium 3.5 (3.5-5.1) mmol/L Chloride 106 (98-107) mmol/L Carbon Dioxide 26.1 (21.0-32.0) mmol/L BUN 39 H (7-18) mg/dL Creatinine 1.42 H (0.51-1.17) mg/dL Est Cr Clr Drug Dosing TNP Estimated GFR (MDRD) 36 mL/min Glucose 231 H (74-106) mg/dL POC Glucose (65-110) mg/dl Hemoglobin A1c (4.3-5.7) % Lactic Acid 1.3 (0.4-2.0) mmol/L Calcium 8.3 L (8.5-10.1) mg/dL Magnesium 1.8 (1.8-2.4) mg/dL Total Bilirubin 1.2 H (0.2-1.0) mg/dL AST 19 (15-37) U/L ALT 18 (12-78) U/L Alkaline Phosphatase 75 (46-116) IU/L Creatine Kinase 86 (26-308) U/L Creatine Kinase Index 0.8 (0.0-2.5) % CK-MB (CK-2) 0.70 (0.00-3.60) ng/mL Troponin I 0.013 0.011 (0.000-0.056) ng/mL NT-Pro-B Natriuret Pep 35422 H (0-125) pg/mL Total Protein 6.8 (6.4-8.2) g/dL Albumin 2.7 L (3.4-5.0) g/dL Triglycerides (30-150) mg/dL Cholesterol (100-200) mg/dL LDL Cholesterol, Calc (0-100) mg/dL HDL Cholesterol (40-60) mg/dL TSH, Ultra Sensitive 0.478 (0.358-3.740) mIU/mL 06/26/19 06/26/19 06/26/19 Range/Units 14:43 17:08 20:49 WBC (4.0-10.2) K/uL RBC (3.77-5.09) M/uL Hgb (11.7-15.5) g/dL Hct (34.0-46.0) % MCV (84.0-98.0) fL MCH (28.2-33.3) pg MCHC (31.7-36.0) g/dL RDW (11.2-14.1) % Plt Count (150-350) K/uL Neut % (Auto) (45.0-80.0) % Lymph % (Auto) (10.0-50.0) % [place] % (Auto) (2.0-14.0) % Eos % (Auto) (0.0-5.0) % Baso % (Auto) (0.0-2.0) % Neut # (Auto) (1.40-7.00) K/uL Lymph # (Auto) (0.50-3.50) K/uL [place] # (Auto) (0.00-1.00) K/uL Eos # (Auto) (0.00-0.50) K/uL Baso # (Auto) (0.00-0.20) K/uL PT (9.5-12.0) SEC INR APTT (24.5-32.8) SEC D-Dimer, Quantitative (0-400) ng/mL Sodium (136-145) mmol/L Potassium (3.5-5.1) mmol/L Chloride (98-107) mmol/L Carbon Dioxide (21.0-32.0) mmol/L BUN (7-18) mg/dL Creatinine (0.51-1.17) mg/dL Est Cr Clr Drug Dosing Estimated GFR (MDRD) mL/min Glucose (74-106) mg/dL POC Glucose 157 H (65-110) mg/dl Hemoglobin A1c (4.3-5.7) % Lactic Acid (0.4-2.0) mmol/L Calcium (8.5-10.1) mg/dL Magnesium (1.8-2.4) mg/dL Total Bilirubin (0.2-1.0) mg/dL AST (15-37) U/L ALT (12-78) U/L Alkaline Phosphatase (46-116) IU/L Creatine Kinase 88 (26-308) U/L Creatine Kinase Index 0.8 (0.0-2.5) % CK-MB (CK-2) 0.70 (0.00-3.60) ng/mL Troponin I 0.017 (0.000-0.056) ng/mL NT-Pro-B Natriuret Pep (0-125) pg/mL Total Protein (6.4-8.2) g/dL Albumin (3.4-5.0) g/dL Triglycerides (30-150) mg/dL Cholesterol (100-200) mg/dL LDL Cholesterol, Calc (0-100) mg/dL HDL Cholesterol (40-60) mg/dL TSH, Ultra Sensitive (0.358-3.740) mIU/mL 06/26/19 06/26/19 06/27/19 Range/Units 20:49 21:26 07:40 WBC 9.0 (4.0-10.2) K/uL RBC 3.01 L (3.77-5.09) M/uL Hgb 8.9 L D (11.7-15.5) g/dL Hct 29.4 L (34.0-46.0) % MCV 97.7 (84.0-98.0) fL MCH 29.6 (28.2-33.3) pg MCHC 30.3 L (31.7-36.0) g/dL RDW 13.1 (11.2-14.1) % Plt Count 141 L (150-350) K/uL Neut % (Auto) 65.2 (45.0-80.0) % Lymph % (Auto) 24.2 (10.0-50.0) % [place] % (Auto) 8.0 (2.0-14.0) % Eos % (Auto) 2.3 (0.0-5.0) % Baso % (Auto) 0.3 (0.0-2.0) % Neut # (Auto) 5.85 (1.40-7.00) K/uL Lymph # (Auto) 2.17 (0.50-3.50) K/uL [place] # (Auto) 0.72 (0.00-1.00) K/uL Eos # (Auto) 0.21 (0.00-0.50) K/uL Baso # (Auto) 0.03 (0.00-0.20) K/uL PT (9.5-12.0) SEC INR APTT (24.5-32.8) SEC D-Dimer, Quantitative (0-400) ng/mL Sodium (136-145) mmol/L Potassium (3.5-5.1) mmol/L Chloride (98-107) mmol/L Carbon Dioxide (21.0-32.0) mmol/L BUN (7-18) mg/dL Creatinine (0.51-1.17) mg/dL Est Cr Clr Drug Dosing Estimated GFR (MDRD) mL/min Glucose (74-106) mg/dL POC Glucose 124 H (65-110) mg/dl Hemoglobin A1c (4.3-5.7) % Lactic Acid (0.4-2.0) mmol/L Calcium (8.5-10.1) mg/dL Magnesium (1.8-2.4) mg/dL Total Bilirubin (0.2-1.0) mg/dL AST (15-37) U/L ALT (12-78) U/L Alkaline Phosphatase (46-116) IU/L Creatine Kinase 104 (26-308) U/L Creatine Kinase Index 0.9 (0.0-2.5) % CK-MB (CK-2) 0.90 (0.00-3.60) ng/mL Troponin I (0.000-0.056) ng/mL NT-Pro-B Natriuret Pep (0-125) pg/mL Total Protein (6.4-8.2) g/dL Albumin (3.4-5.0) g/dL Triglycerides (30-150) mg/dL Cholesterol (100-200) mg/dL LDL Cholesterol, Calc (0-100) mg/dL HDL Cholesterol (40-60) mg/dL TSH, Ultra Sensitive (0.358-3.740) mIU/mL 06/27/19 06/27/19 06/27/19 Range/Units 07:40 07:40 07:43 WBC (4.0-10.2) K/uL RBC (3.77-5.09) M/uL Hgb (11.7-15.5) g/dL Hct (34.0-46.0) % MCV (84.0-98.0) fL MCH (28.2-33.3) pg MCHC (31.7-36.0) g/dL RDW (11.2-14.1) % Plt Count (150-350) K/uL Neut % (Auto) (45.0-80.0) % Lymph % (Auto) (10.0-50.0) % [place] % (Auto) (2.0-14.0) % Eos % (Auto) (0.0-5.0) % Baso % (Auto) (0.0-2.0) % Neut # (Auto) (1.40-7.00) K/uL Lymph # (Auto) (0.50-3.50) K/uL [place] # (Auto) (0.00-1.00) K/uL Eos # (Auto) (0.00-0.50) K/uL Baso # (Auto) (0.00-0.20) K/uL PT (9.5-12.0) SEC INR APTT (24.5-32.8) SEC D-Dimer, Quantitative (0-400) ng/mL Sodium 145 (136-145) mmol/L Potassium 3.8 (3.5-5.1) mmol/L Chloride 109 H (98-107) mmol/L Carbon Dioxide 28.2 (21.0-32.0) mmol/L BUN 43 H (7-18) mg/dL Creatinine 1.79 H (0.51-1.17) mg/dL Est Cr Clr Drug Dosing 19.23 Estimated GFR (MDRD) 27 mL/min Glucose 140 H (74-106) mg/dL POC Glucose 152 H (65-110) mg/dl Hemoglobin A1c 7.2 H (4.3-5.7) % Lactic Acid (0.4-2.0) mmol/L Calcium 7.8 L (8.5-10.1) mg/dL Magnesium (1.8-2.4) mg/dL Total Bilirubin 0.6 (0.2-1.0) mg/dL AST 14 L (15-37) U/L ALT 16 (12-78) U/L Alkaline Phosphatase 53 (46-116) IU/L Creatine Kinase 99 (26-308) U/L Creatine Kinase Index 1.1 (0.0-2.5) % CK-MB (CK-2) 1.10 (0.00-3.60) ng/mL Troponin I 0.005 (0.000-0.056) ng/mL NT-Pro-B Natriuret Pep 34558 H (0-125) pg/mL Total Protein 5.8 L (6.4-8.2) g/dL Albumin 2.1 L (3.4-5.0) g/dL Triglycerides 81 (30-150) mg/dL Cholesterol 105 (100-200) mg/dL LDL Cholesterol, Calc 42 (0-100) mg/dL HDL Cholesterol 47 (40-60) mg/dL TSH, Ultra Sensitive (0.358-3.740) mIU/mL Blood cultures 2 pending Pool Results Last 24 Hours: Microbiology 06/26/19 10:00 Influenza Type A Antigen Screen - Final Nasal, Unspecified NEGATIVE INFLUENZA A VIRUS AG REFERENCE RANGE: NEGATIVE Influenza Type B Antigen Screen - Final NEGATIVE INFLUENZA B VIRUS AG REFERENCE RANGE: NEGATIVE 06/26/19 10:20 Group A Streptococcus Rapid Screen - Final Throat NEGATIVE STREP A SCREEN REFERENCE RANGE: NEGATIVE Med Orders - Current: Current Medications Acetaminophen (Tylenol) 650 mg PO Q4H PRN PRN Reason: Pain/Fever Albuterol (Proventil Neb Soln) 2.5 mg NEB Q2H PRN PRN Reason: Dyspnea Albuterol/Ipratropium (Duoneb 3.0-0.5 Mg/3 Ml) 3 ml NEB Q4HRRT PRN PRN Reason: Dyspnea Albuterol/Ipratropium (Duoneb 3.0-0.5 Mg/3 Ml) 3 ml NEB Q6HRRT [facility] Last Admin: 06/27/19 07:52 Dose: 3 ml Aspirin (Halfprin) 81 mg PO DAILY [facility] Last Admin: 06/27/19 07:47 Dose: 81 mg Atorvastatin Calcium (Lipitor) 40 mg PO BEDTIME [facility] Last Admin: 06/26/19 20:51 Dose: 40 mg Budesonide (Pulmicort) 0.5 mg NEB BIDRT [facility] Last Admin: 06/27/19 07:51 Dose: 0.5 mg Carvedilol (Coreg) 25 mg PO BID [facility] Last Admin: 06/27/19 07:47 Dose: 25 mg Clotrimazole (Lotrimin Af 1% Crm) 1 gm TOP BID [facility] Last Admin: 06/27/19 07:52 Dose: 1 dose Dorzolamide HCl (Trusopt 2% Ophth Soln) 0 ml EYEBOTH BID [facility] Last Admin: 06/27/19 07:52 Dose: 1 drop Ferrous Sulfate (Ferrous Sulfate) 325 mg PO BID [facility] Furosemide (Lasix) 40 mg IVPUSH Q8H [facility] Last Admin: 06/27/19 03:46 Dose: 40 mg Guaifenesin/Dextromethorphan (Mucinex Dm Er 600-30 Mg) 1 tab PO BID [facility] Last Admin: 06/27/19 07:46 Dose: 1 tab Levofloxacin/Dextrose 500 mg/ (Premix) 100 mls @ 100 mls/hr IV Q24H [facility] Last Admin: 06/26/19 13:43 Dose: 100 mls/hr Ceftriaxone Sodium 1 gm/ (Sodium Chloride) 100 mls @ 200 mls/hr IV Q24H [facility] Insulin Human Lispro (Humalog) 0 unit SUBCUT QIDACANDBED [facility]; Protocol Last Admin: 06/27/19 07:48 Dose: 2 unit Lactobacillus Rhamnosus (Culturelle) 2 cap PO BID [facility] Last Admin: 06/27/19 07:46 Dose: 2 cap Latanoprost (Xalatan 0.005% Ophth Soln) 0 ml EYEBOTH BEDTIME [facility] Last Admin: 06/26/19 20:52 Dose: Not Given Losartan Potassium (Cozaar) 50 mg PO DAILY [facility] Last Admin: 06/27/19 07:46 Dose: 50 mg Ondansetron HCl (Zofran) 4 mg IVPUSH Q6H PRN PRN Reason: Nausea/Vomiting Last Admin: 06/26/19 17:55 Dose: 4 mg Potassium Chloride (Klor-Con M20) 20 meq PO TID [facility] Last Admin: 06/27/19 07:46 Dose: 20 meq Sodium Chloride (Saline Flush) 10 ml FLUSH ASDIRECTED PRN PRN Reason: Keep Vein Open Last Admin: 06/26/19 13:43 Dose: 10 ml Sodium Chloride (Saline Flush) 10 ml FLUSH Q12H [facility] Last Admin: 06/27/19 03:46 Dose: 10 ml Temazepam (Restoril) 15 mg PO BEDTIME PRN PRN Reason: Insomnia Discontinued Medications Enoxaparin Sodium (Lovenox) 40 mg SUBCUT Q24H [facility] Last Admin: 06/26/19 13:00 Dose: 40 mg Ferrous Sulfate (Ferrous Sulfate) 325 mg PO DAILY [facility] Last Admin: 06/27/19 07:47 Dose: 325 mg Fluconazole (Diflucan) 100 mg PO ONETIME ONE Stop: 06/26/19 11:59 Last Admin: 06/26/19 12:54 Dose: 100 mg Ceftriaxone Sodium 1 gm/ (Sodium Chloride) 100 mls @ 200 mls/hr IV Q12H [facility] Last Admin: 06/27/19 00:30 Dose: 200 mls/hr - Exam Quality Assessment: Supplemental Oxygen, DVT Prophylaxis (Lovenox). No: Central Line/PICC, Urine Catheter General: Alert, Oriented, Cooperative, No Acute Distress HEENT: Pupils Equal, Pupils Reactive, EOMI, Mucous Membr. Moist/Chicken. No: Scleral Icterus Neck: Supple, Trachea Midline, No JVD, No Thyromegaly. No: Lymphadenopathy Lungs: Normal Respiratory Effort, Rales (Somewhat improved mostly basilar moderate bilateral basilar rales), Wheezing (Mild occasional diffuse bilaterally ). No: Rhonchi, Rub, Stridor Cardiovascular: Regular Rate, Regular Rhythm, No Murmurs, Other (No extrasystoles at time of exam). No: Murmurs, Gallops, Rubs GI/Abdominal Exam: Normal Bowel Sounds, Soft, Non-Tender, No Organomegaly, No Distention, No Abnormal Bruit, No Mass, Other (Obese). No: Guarding (Female) Exam: Deferred Back Exam: Full Range of Motion, Other (Mild kyphosis). No: CVA Tenderness (L) , CVA Tenderness (R), Muscle Spasm, Paraspinal Tenderness, Vertebral Tenderness Extremities: Normal Inspection, Normal Range of Motion, Non-Tender, No Pedal Edema, Normal Capillary Refill. No: Charlee's Sign Peripheral Pulses: 2+: Radial (L), Radial (R), Dorsalis Pedis (L), Dorsalis Pedis (R) Skin: Warm, Dry, Intact. No: Ecchymosis Neurological: No New Focal Deficit Psy/Mental Status: Alert, Normal Affect, Normal Mood. No: Agitated, Hallucinations, Withdrawal Symptoms EKG INTERPRETATION EKG Date: 06/27/19 Time: 08:54 Rhythm: Other (Normal sinus rhythm with returned occasional PVCs) Rate (Beats/Min): 72 [place]: Normal (Left) P-Wave: Enlarged (Moderate diffuse biphasic P waves) QRS: Wide (0.10 seconds representing repolarization changes) ST-T: Other (Resolution of previous T-wave inversion in lead aVL) QT: Prolonged (440/481 msnew/mild) ME/PQ Interval: 0.17 seconds with poor R-wave progression in the anterior leads Comparison: Change From Previous EKG (As above since 06/26/19) EKG Interpretation Comments: 1. No acute ischemic changes 2. Atrial enlargement-left 3. Repolarization changes 4. Mild Prolonged QT 5. PVCs Sepsis Event Note - Evaluation Sepsis Screening Result: Sepsis Risk - Focused Exam Vital Signs: Vital Signs Temp Pulse Pulse Resp BP BP Pulse Ox 06/27/19 07:58 36.8 C 75 20 117/69 95 06/27/19 07:47 75 117/69 06/27/19 07:46 117/69 06/27/19 03:49 36.5 C 70 20 123/78 98 06/27/19 00:00 36.6 C 70 20 120/63 95 Date Exam was Performed: 06/27/19 Time Exam was Performed: 09:23 - Problem List & Annotations (1) CHF (congestive heart failure) SNOMED Code(s): 05964755 Code(s): I50.9 - HEART FAILURE, UNSPECIFIED Status: Acute Priority: High Current Visit: Yes Onset Date: 02/21/17 Qualifiers: Heart failure type: unspecified Heart failure chronicity: acute on chronic Qualified Code(s): I50.9 - Heart failure, unspecified Annotation/Comment:: History of recurrent CHF with exacerbation secondary to medication noncompliance prior to admission as per emergency room note. Somewhat slow response to aggressive IV Lasix therapy, although somewhat improved BNP with secondary nonspecific troponin I change, which is still normal. No chest pain or anginal type symptoms either prior to admission or during this hospitalization. History of systolic cardiomyopathy with last echocardiogram on 08/26/18 with an ejection fraction of 45% at that time and otherwise findings as per emergency room note. Note history of pulmonary hypertension. Initiated aggressive IV Lasix therapy on admission with continued caution secondary to history of renal insufficiency and mild progressive creatinine elevation today. Rule out NH orders have been negative to this point with chest pain protocol not initiated in the emergency room secondary to absence of anginal complaints. Cardiology consultation depending on her clinical course. Medication compliance strongly encouraged. Finances are an issue. [facility] physician assumes care later this evening with view of her finances and current medical therapy for her heart disease, diabetes, etc. prior to discharge in order to improve medication compliance. She had to restart her as needed O2 therapy prior to admission with O2 sat of only 85% on room air in the emergency room. Note desaturation to 75% on room air while walking to the bathroom today. Otherwise desaturations have been stable with current oxygen supplementation. Repeat EKG, blood work, and chest x-ray in the a.m. (2) Coronary artery disease SNOMED Code(s): 14088710 Code(s): I25.10 - ATHSCL HEART DISEASE OF [place] CORONARY ARTERY W/O ANG PCTRS Status: Acute Priority: High Current Visit: Yes Onset Date: Qualifiers: Coronary Disease-Associated Artery/Lesion type: [place] artery [place] vs. transplanted heart: [place] heart Associated angina: with stable angina Qualified Code(s): I25.118 - Atherosclerotic heart disease of [place] coronary artery with other forms of angina pectoris Annotation/Comment:: As above (3) D-dimer, elevated SNOMED Code(s): 937459005 Code(s): R79.89 - OTHER SPECIFIED ABNORMAL FINDINGS OF BLOOD CHEMISTRY Status: Acute Priority: High Current Visit: Yes Onset Date: 02/21/17 Annotation/Comment:: Note previous negative workup as above. No clinical evidence of DVT or PE by today's exam. Initiated subcutaneous Lovenox at DVT prophylactic dose on admission, however this will be discontinued at this time secondary to her progressive anemia. Otherwise continue DVT prophylaxis, including LUIS CARLOS hose, ambulation, etc. D-dimer will be repeated in the a.m. secondary to low probability of possible COVID19 (4) PAC (premature atrial contraction) SNOMED Code(s): 363998740 Code(s): I49.1 - ATRIAL PREMATURE DEPOLARIZATION Status: Acute Priority: Medium Current Visit: Yes Onset Date: 06/26/19 Annotation/Comment:: Newly diagnosed on admission with no significant symptoms at this time. History of PVCs, etc. as her emergency room note with significant improvement after resumption of her medical therapy, etc.. (5) COPD (chronic obstructive pulmonary disease) SNOMED Code(s): 62307188 Code(s): J44.9 - CHRONIC OBSTRUCTIVE PULMONARY DISEASE, UNSPECIFIED Status : Chronic Priority: Medium Current Visit: Yes Qualifiers: COPD type: emphysema Emphysema type: panlobular Qualified Code(s): J43.1 - Panlobular emphysema Annotation/Comment:: Possible beginning left lower lobe pneumonia. Note mild WBC elevation secondary to stress reaction on admission, which has since resolved.. Initiated IV Rocephin and IV Cipro therapy with additional triple and DuoNeb nebulizer treatments on admission, with IV Rocephin to be decreased to a every 24 hours basis to limit staff exposure. Note patient is afebrile with no leukocytosis at this time. Evaluation of COVID-19 was extensively considered on admission with no direct clinical indication of this with admission symptoms to CHF, COPD, medication noncompliance, etc. as above. Standard droplet precautions were initiated on admission, however. Note the patient is afebrile today and had been previously following contact precautions , etc. as per current national policy. In the interest of staff safety, etc. COVID-19 was collected on 06/26, however. (6) Diabetes mellitus SNOMED Code(s): 95026216 Code(s): E11.9 - TYPE 2 DIABETES MELLITUS WITHOUT COMPLICATIONS Status: Chronic Priority: Medium Current Visit: Yes Qualifiers: Diabetes mellitus type: type 2 Diabetes mellitus care home insulin use: with care home use Diabetes mellitus complication status: with kidney complications Diabetes mellitus complication detail: with chronic kidney disease Chronic kidney disease stage: stage 3 (moderate) Qualified Code(s): E11.22 - Type 2 diabetes mellitus with diabetic chronic kidney disease; N18.3 - Chronic kidney disease, stage 3 (moderate); Z79.4 - ocean transportation intermediary (current) use of insulin Annotation/Comment:: Finances are an issue. Home Accu-Cheks ranging in the 190s 260s prior to admission with twice a day Accu-Cheks at home by her history. Glycosylated hemoglobin on 06/26 is elevated at 7.8%. Accu-Cheks stable during this hospitalization with sliding scale in effect. Compliance with diet encouraged with current obesity. Close follow-up by regular provider after discharge. (7) Hyperlipidemia SNOMED Code(s): 53516597 Code(s): E78.5 - HYPERLIPIDEMIA, UNSPECIFIED Status: Chronic Priority: Medium Current Visit: Yes Qualifiers: Hyperlipidemia type: mixed hyperlipidemia Qualified Code(s): E78.2 - Mixed hyperlipidemia Annotation/Comment:: Currently under therapy with normal lipid panel on 06/26. Weight loss in moderation, dietary compliance, etc. as above. (8) Hypertension SNOMED Code(s): 07092917 Code(s): I10 - ESSENTIAL (PRIMARY) HYPERTENSION Status: Chronic Priority : Medium Current Visit: Yes Qualifiers: Hypertension type: essential hypertension Qualified Code(s): I10 - Essential (primary) hypertension Annotation/Comment:: Blood Pressures under moderate control in the emergency room with recent medication noncompliance as above. Blood pressures were significantly improved during this hospitalization after resumption of her previous medical therapy. Continue to observe closely by her regular provider. (9) Osteoarthritis SNOMED Code(s): 116890953 Code(s): M19.90 - UNSPECIFIED OSTEOARTHRITIS, UNSPECIFIED SITE Status: Chronic Priority: High Current Visit: Yes Qualifiers: Osteoarthritis location: multiple joints Osteoarthritis type: primary Qualified Code(s): M89.49 - Other hypertrophic osteoarthropathy, multiple sites Annotation/Comment:: Stable by history (10) Peptic reflux disease SNOMED Code(s): 630290950 Code(s): K21.9 - GASTRO-ESOPHAGEAL REFLUX DISEASE WITHOUT ESOPHAGITIS Status: Chronic Priority: Medium Current Visit: Yes Annotation/Comment:: Stable by history. Secondary to patient's anemia oral Pepcid will be initiated as prophylaxis. (11) Tobacco abuse counseling SNOMED Code(s): 988063701, 832606081, [id number] Code(s): Z71.6 - TOBACCO ABUSE COUNSELING Status: Chronic Priority: Medium Current Visit: Yes Annotation/Comment:: Tobacco smoke exposure was once again extensively discussed with the patient and her son at time of admission with tobacco cessation information to be provided at discharge. (12) Anemia SNOMED Code(s): 446819599 Code(s): D64.9 - ANEMIA, UNSPECIFIED Status: Acute Priority: High Current Visit: Yes Onset Date: 02/27/18 Qualifiers: Anemia type: iron deficiency Iron deficiency anemia type: unspecified iron deficiency Qualified Code(s): D50.9 - Iron deficiency anemia, unspecified Annotation/Comment:: History of iron deficiency with history of medication noncompliance of her iron sulfate for quite some time. Reinitiated iron sulfate supplementation on admission, although this was increased to a twice a day regimen secondary to progressive anemia on 06/26. No evidence of acute GI bleed, etc. Lovenox was discontinued as above. Recommend repeat iron studies about one month after discharge. (13) Hypoalbuminemia SNOMED Code(s): 382540956 Code(s): E88.09 - OTH DISORDERS OF PLASMA-PROTEIN METABOLISM, NEC Status: Chronic Priority: Medium Current Visit: No Onset Date: 02/21/17 Annotation/Comment:: High-protein Glucerna supplements as snacks twice a day was once again initiated during this hospitalization with close follow-up by regular providers. (14) Hypomagnesemia SNOMED Code(s): 176367520 Code(s): E83.42 - HYPOMAGNESEMIA Status: Acute Priority: Medium Current Visit: No Onset Date: 02/21/17 Annotation/Comment:: Note medication noncompliance as above with low-normal magnesium level on admission. Resume medical therapy secondary to Lasix therapy. Continue close observation by her regular providers. (15) Diabetic nephropathy Status: Chronic Priority: Medium Current Visit: Yes Qualifiers: Diabetes mellitus type: type 2 Qualified Code(s): E11.21 - Type 2 diabetes mellitus with diabetic nephropathy Annotation/Comment:: As above (16) Hypocalcemia SNOMED Code(s): 3662908 Code(s): E83.51 - HYPOCALCEMIA Status: Chronic Priority: Medium Current Visit: Yes Onset Date: 03/01/18 Annotation/Comment:: OTC Tums as calcium supplementation and GI prophylaxis resumed on 06/26. Continue to observe closely by regular provider. - Problem List Review Problem List Initiated/Reviewed/Updated: Yes - My Orders Last 24 Hours: My Active Orders 06/26/19 10:06 Cardiac Monitoring [RC] Q2HR Communication Order [RC] ROUTINE Chest 1V Frontal [CR] Stat CULTURE SPUTUM + SMEAR [RM] Urgent Sodium Chloride 0.9% [Saline Flush] 10 ml FLUSH ASDIRECTED PRN Blood Culture x2 Reflex Set [OM.PC] Stat Peripheral IV Insertion Adult [OM.PC] Stat Resuscitation Status Routine 06/26/19 10:07 EKG Documentation Completion [RC] ASDIRECTED Peripheral IV Care [RC] . DIRECTED Isolation [COMM] Routine 06/26/19 10:20 CULTURE STREP A CONFIRMATION [RM] Stat STREP SCRN A RAPID W CULT CONF [RM] Stat 06/26/19 10:25 CULTURE BLOOD [BC] Stat 06/26/19 10:40 CULTURE BLOOD [BC] Stat 06/26/19 11:43 Antiembolic Devices [RC] 08,20 Height and Weight [RC] DAILY Intake and Output Strict [RC] QSHIFT Oxygen Therapy [RC] CONTINUOUS Pulse Oximetry [RC] ASDIRECTED Albuterol/Ipratropium [DuoNeb 3.0-0.5 MG/3 ML] 3 ml NEB Q4HRRT PRN Temazepam [Restoril] 15 mg PO BEDTIME PRN CHF Questionnaire [COMM] Routine DVT/VTE Prophylaxis Reflex [OM.PC] Routine GM Immunization Reflex [OM.PC] Click To Edit 06/26/19 11:44 Antiembolic Devices [RC] .Routine VTE/DVT Education [RC] PER UNIT ROUTINE Vaccines to be Administered [RC] PER UNIT ROUTINE 06/26/19 11:45 Losartan [Cozaar] 50 mg PO DAILY carvediloL [Coreg] 25 mg PO BID 06/26/19 11:59 Ondansetron [Zofran] 4 mg IVPUSH Q6H PRN 06/26/19 12:00 Acetaminophen [Tylenol] 650 mg PO Q4H PRN Albuterol [Proventil Neb Soln] 2.5 mg NEB Q2H PRN Furosemide [Lasix] 40 mg IVPUSH Q8H Potassium Chloride [Klor-Con M20] 20 meq PO TID Sodium Chloride 0.9% [Saline Flush] 10 ml FLUSH Q12H 06/26/19 13:00 Levofloxacin/Dextrose 5%-Water [Levaquin in D5W 500 MG/100 ML] 500 mg Premix Bag 1 bag IV Q24H 06/26/19 14:00 Albuterol/Ipratropium [DuoNeb 3.0-0.5 MG/3 ML] 3 ml NEB Q6HRRT 06/26/19 15:39 Vital Signs [RC] Q4HR 06/26/19 17:30 Blood Glucose Check, Bedside [RC] QIDACANDBED Insulin Lispro [HumaLOG] See Protocol SUBCUT QIDACANDBED 06/26/19 18:00 Clotrimazole [Lotrimin AF 1% Crm] 1 gm TOP BID Dextromethorphan/guaiFENesin [Mucinex DM ER 600-30 MG] 1 tab PO BID Dorzolamide [Trusopt 2% Ophth Soln] 0 ml EYEBOTH BID Lactobacillus Rhamnosus GG [Culturelle] 2 cap PO BID 06/26/19 20:00 Budesonide [Pulmicort] 0.5 mg NEB BIDRT Latanoprost [Xalatan 0.005% Ophth Soln] 0 ml EYEBOTH BEDTIME atorvaSTATin [Lipitor] 40 mg PO BEDTIME 06/27/19 05:11 EKG Documentation Completion [RC] ASDIRECTED EKG 12 Lead [EK] Routine 06/27/19 08:00 Aspirin [Halfprin] 81 mg PO DAILY 06/27/19 09:05 CORONAVIRUS COVID-19 PCR PHL [MREF] Stat 06/27/19 12:00 cefTRIAXone [Rocephin] 1 gm Sodium Chloride 0.9% [Normal Saline] 100 ml IV Q24H 06/27/19 18:00 Ferrous Sulfate 325 mg PO BID 06/27/19 Breakfast Fluid Restriction [DIET] 06/28/19 05:11 EKG Documentation Completion [RC] ASDIRECTED Chest 1V Frontal [CR] Routine BASIC METABOLIC PANEL,BMP [CHEM] Routine CBC WITH AUTO DIFF [HEME] Routine CK W CKMB [CHEM] Routine D-DIMER QUANTITATIVE [COAG] Routine INR,PT,PROTHROMBIN TIME [COAG] Stat PRO B-TYPE NATRIUR PEPT,BNPPRO [CHEM] Routine PTT,PARTIAL THROMBOPLSTIN TIME [COAG] Routine TROPONIN I [CHEM] Routine EKG 12 Lead [EK] Routine - Assessment Assessment:: As above - Plan Plan:: As above. Extensive precautions were given to the patient, who is in agreement with the treatment plan. The patient will require about 2-3 days of inpatient/ acute care secondary to multiple health problems as above. telescope operator physician assumes care later today with further recommendations as above.
[2019-06-27] MEDS: Famotidine 20 MG Tab PO SCH (11:50)
[2019-06-27] MEDS: Levofloxacin/Dextrose 5%-Water 500 MG in Premix Bag 1 BAG IV SCH ×2 (13:44→16:42)
[2019-06-27] MEDS ORDERED: Insulin Glarg,Human.Rec.Analog 100 Unit/ML SUBCUT SCH (18:00)
[2019-06-27] MEDS: atorvaSTATin 40 MG Tab PO SCH (20:09)
[2019-06-27] MEDS: Latanoprost 0.005% Ophth Soln 2.5 ML Bottle EYEBOTH SCH (20:11)
[2019-06-27] MEDS: Calcium Carbonate 750 MG Tab.Chew PO SCH (20:12)
[2019-06-27] MEDS: Furosemide 20 MG/2 ML VIAL IVPUSH SCH (20:14)
[2019-06-27] MEDS: Insulin Glarg,Human.Rec.Analog 100 Unit/ML SUBCUT SCH (20:24)
[2019-06-28] MEDS: Budesonide 0.5 MG/2 ML Neb Susp NEB SCH ×2 (07:55→20:05)
[2019-06-28] MEDS: Albuterol/Ipratropium 3.0-0.5 MG/3 ML Neb Soln NEB SCH ×4 (07:55→20:05)
--- NOTE | 2019-06-28 08:05 | PCM.PN ---
- General Info Date of Service: 06/28/19 Admission Dx/Problem (Free Text): 1. CHF 2. Left lower lobe pneumonia 3. COPD-O2 dependent 4. IDDM Subjective Update: Overall doing well. She denies significant shortness of breath or cough. No chest pain or tightness. No abdominal pain, nausea or vomiting. She does feel her breathing is at her baseline. She does very well after inhaler treatments. Functional Status: Reports: Pain Controlled, Tolerating Diet, Ambulating, Urinating - Review of Systems General: Denies: Fever, Weakness, Night Sweats Pulmonary: Reports: Shortness of Breath, Cough, Wheezing. Denies: Pleuritic Chest Pain, Sputum Cardiovascular: Denies: Chest Pain, Palpitations, Edema Gastrointestinal: Denies: Abdominal Pain, Nausea, Vomiting Genitourinary: Denies: Dysuria, Frequency, Urgency Musculoskeletal: Reports: No Symptoms Skin: Reports: No Symptoms Neurological: Denies: Confusion, Dizziness, Headache Psychiatric: Denies: Confusion, Depression - Patient Data Vitals - Most Recent: Last Vital Signs Temp 37.1 C 06/27/19 20:02 Pulse 82 06/27/19 20:09 Resp 20 06/27/19 20:02 BP 140/86 06/27/19 20:09 Pulse Ox 98 06/27/19 20:02 Weight - Most Recent: 82.735 kg I&O - Last 24 Hours: Intake & Output 06/27/19 06/28/19 06/28/19 22:59 06:59 14:59 Intake Total 120 200 Balance 120 200 Lab Results Last 24 Hours: Laboratory Results - last 24 hr 06/27/19 06/27/19 06/27/19 Range/Units 07:40 07:40 11:43 Sodium 145 (136-145) mmol/L Potassium 3.8 (3.5-5.1) mmol/L Chloride 109 H (98-107) mmol/L Carbon Dioxide 28.2 (21.0-32.0) mmol/L BUN 43 H (7-18) mg/dL Creatinine 1.79 H (0.51-1.17) mg/dL Est Cr Clr Drug Dosing 19.23 mL/min Estimated GFR (MDRD) 27 mL/min Glucose 140 H (74-106) mg/dL POC Glucose 117 H (65-110) mg/dl Hemoglobin A1c 7.2 H (4.3-5.7) % Calcium 7.8 L (8.5-10.1) mg/dL Total Bilirubin 0.6 (0.2-1.0) mg/dL AST 14 L (15-37) U/L ALT 16 (12-78) U/L Alkaline Phosphatase 53 (46-116) IU/L Creatine Kinase 99 (26-308) U/L Creatine Kinase Index 1.1 (0.0-2.5) % CK-MB (CK-2) 1.10 (0.00-3.60) ng/mL Troponin I 0.005 (0.000-0.056) ng/mL NT-Pro-B Natriuret Pep 38358 H (0-125) pg/mL Total Protein 5.8 L (6.4-8.2) g/dL Albumin 2.1 L (3.4-5.0) g/dL Triglycerides 81 (30-150) mg/dL Cholesterol 105 (100-200) mg/dL LDL Cholesterol, Calc 42 (0-100) mg/dL HDL Cholesterol 47 (40-60) mg/dL 06/27/19 06/27/19 06/28/19 Range/Units 16:40 20:23 03:21 Sodium (136-145) mmol/L Potassium (3.5-5.1) mmol/L Chloride (98-107) mmol/L Carbon Dioxide (21.0-32.0) mmol/L BUN (7-18) mg/dL Creatinine (0.51-1.17) mg/dL Est Cr Clr Drug Dosing mL/min Estimated GFR (MDRD) mL/min Glucose (74-106) mg/dL POC Glucose 194 H 149 H 142 H (65-110) mg/dl Hemoglobin A1c (4.3-5.7) % Calcium (8.5-10.1) mg/dL Total Bilirubin (0.2-1.0) mg/dL AST (15-37) U/L ALT (12-78) U/L Alkaline Phosphatase (46-116) IU/L Creatine Kinase (26-308) U/L Creatine Kinase Index (0.0-2.5) % CK-MB (CK-2) (0.00-3.60) ng/mL Troponin I (0.000-0.056) ng/mL NT-Pro-B Natriuret Pep (0-125) pg/mL Total Protein (6.4-8.2) g/dL Albumin (3.4-5.0) g/dL Triglycerides (30-150) mg/dL Cholesterol (100-200) mg/dL LDL Cholesterol, Calc (0-100) mg/dL HDL Cholesterol (40-60) mg/dL 06/28/19 Range/Units 07:57 Sodium (136-145) mmol/L Potassium (3.5-5.1) mmol/L Chloride (98-107) mmol/L Carbon Dioxide (21.0-32.0) mmol/L BUN (7-18) mg/dL Creatinine (0.51-1.17) mg/dL Est Cr Clr Drug Dosing mL/min Estimated GFR (MDRD) mL/min Glucose (74-106) mg/dL POC Glucose 147 H (65-110) mg/dl Hemoglobin A1c (4.3-5.7) % Calcium (8.5-10.1) mg/dL Total Bilirubin (0.2-1.0) mg/dL AST (15-37) U/L ALT (12-78) U/L Alkaline Phosphatase (46-116) IU/L Creatine Kinase (26-308) U/L Creatine Kinase Index (0.0-2.5) % CK-MB (CK-2) (0.00-3.60) ng/mL Troponin I (0.000-0.056) ng/mL NT-Pro-B Natriuret Pep (0-125) pg/mL Total Protein (6.4-8.2) g/dL Albumin (3.4-5.0) g/dL Triglycerides (30-150) mg/dL Cholesterol (100-200) mg/dL LDL Cholesterol, Calc (0-100) mg/dL HDL Cholesterol (40-60) mg/dL Pool Results Last 24 Hours: Microbiology 06/27/19 20:30 Stool Occult Blood (POOL) - Final Stool / Feces NEGATIVE OCCULT BLOOD REFERENCE RANGE: NEGATIVE 06/26/19 10:40 Aerobic Blood Culture - Preliminary Blood - Venous - Lab Draw NO GROWTH AFTER 1 DAY Anaerobic Blood Culture - Preliminary NO GROWTH AFTER 1 DAY 06/26/19 10:25 Aerobic Blood Culture - Preliminary Blood - Venous NO GROWTH AFTER 1 DAY Anaerobic Blood Culture - Preliminary NO GROWTH AFTER 1 DAY 06/26/19 10:20 Quick Strep Confirmation Culture - Final Throat NO GROUP A STREP ISOLATED REFERENCE RANGE: NEGATIVE Group A Streptococcus Rapid Screen - Final NEGATIVE STREP A SCREEN REFERENCE RANGE: NEGATIVE Med Orders - Current: Current Medications Acetaminophen (Tylenol) 650 mg PO Q4H PRN PRN Reason: Pain/Fever Albuterol (Proventil Neb Soln) 2.5 mg NEB Q2H PRN PRN Reason: Dyspnea Albuterol/Ipratropium (Duoneb 3.0-0.5 Mg/3 Ml) 3 ml NEB Q4HRRT PRN PRN Reason: Dyspnea Albuterol/Ipratropium (Duoneb 3.0-0.5 Mg/3 Ml) 3 ml NEB QID [facility] Last Admin: 06/27/19 20:27 Dose: 3 ml Aspirin (Halfprin) 81 mg PO DAILY [facility] Last Admin: 06/27/19 07:47 Dose: 81 mg Atorvastatin Calcium (Lipitor) 40 mg PO BEDTIME [facility] Last Admin: 06/27/19 20:09 Dose: 40 mg Budesonide (Pulmicort) 0.5 mg NEB BIDRT [facility] Last Admin: 06/27/19 20:27 Dose: 0.5 mg Calcium Carbonate/Glycine (Tums Extra Strength) 1,500 mg PO BEDTIME [facility] Last Admin: 06/27/19 20:12 Dose: 1,500 mg Carvedilol (Coreg) 25 mg PO Q12HR [facility] Last Admin: 06/27/19 20:09 Dose: 25 mg Clotrimazole (Lotrimin Af 1% Crm) 1 gm TOP Q12HR [facility] Last Admin: 06/27/19 20:13 Dose: 1 applic Dorzolamide HCl (Trusopt 2% Ophth Soln) 0 ml EYEBOTH Q12HR [facility] Last Admin: 06/27/19 20:20 Dose: 1 drop Famotidine (Pepcid) 20 mg PO DAILY@1200 [facility] Last Admin: 06/27/19 11:50 Dose: 20 mg Ferrous Sulfate (Ferrous Sulfate) 325 mg PO BID@0800,1200 [facility] Furosemide (Lasix) 60 mg IVPUSH Q12HR [facility] Last Admin: 06/27/19 20:14 Dose: 60 mg Guaifenesin/Dextromethorphan (Mucinex Dm Er 600-30 Mg) 1 tab PO Q12HR [facility] Last Admin: 06/27/19 20:08 Dose: 1 tab Ceftriaxone Sodium 1 gm/ (Sodium Chloride) 100 mls @ 200 mls/hr IV Q24H [facility] Last Admin: 06/27/19 11:52 Dose: 200 mls/hr Levofloxacin/Dextrose 500 mg/ (Premix) 100 mls @ 100 mls/hr IV Q24H [facility] Last Admin: 06/27/19 16:42 Dose: 100 mls/hr Insulin Glargine (Lantus) 6 unit SUBCUT Q12HR [facility] Last Admin: 06/27/19 20:24 Dose: 6 units Insulin Human Lispro (Humalog) 0 unit SUBCUT QIDACANDBED [facility]; Protocol Last Admin: 06/27/19 20:23 Dose: Not Given Lactobacillus Rhamnosus (Culturelle) 2 cap PO Q12HR [facility] Last Admin: 06/27/19 20:08 Dose: 2 cap Latanoprost (Xalatan 0.005% Ophth Soln) 0 ml EYEBOTH BEDTIME [facility] Last Admin: 06/27/19 20:11 Dose: 1 drop Losartan Potassium (Cozaar) 50 mg PO DAILY [facility] Last Admin: 06/27/19 07:46 Dose: 50 mg Ondansetron HCl (Zofran) 4 mg IVPUSH Q6H PRN PRN Reason: Nausea/Vomiting Last Admin: 06/26/19 17:55 Dose: 4 mg Potassium Chloride (Klor-Con M20) 20 meq PO TID@0800,1200,2000 [facility] Last Admin: 06/27/19 20:07 Dose: 20 meq Sodium Chloride (Saline Flush) 10 ml FLUSH ASDIRECTED PRN PRN Reason: Keep Vein Open Last Admin: 06/26/19 13:43 Dose: 10 ml Sodium Chloride (Saline Flush) 10 ml FLUSH Q12HR [facility] Last Admin: 06/27/19 20:15 Dose: 10 ml Temazepam (Restoril) 15 mg PO BEDTIME PRN PRN Reason: Insomnia Discontinued Medications Albuterol/Ipratropium (Duoneb 3.0-0.5 Mg/3 Ml) 3 ml NEB Q6HRRT [facility] Last Admin: 06/27/19 07:52 Dose: 3 ml Carvedilol (Coreg) 25 mg PO BID [facility] Last Admin: 06/27/19 07:47 Dose: 25 mg Clotrimazole (Lotrimin Af 1% Crm) 1 gm TOP BID [facility] Last Admin: 06/27/19 07:52 Dose: 1 dose Dorzolamide HCl (Trusopt 2% Ophth Soln) 0 ml EYEBOTH BID [facility] Last Admin: 06/27/19 07:52 Dose: 1 drop Enoxaparin Sodium (Lovenox) 40 mg SUBCUT Q24H [facility] Last Admin: 06/26/19 13:00 Dose: 40 mg Ferrous Sulfate (Ferrous Sulfate) 325 mg PO DAILY [facility] Last Admin: 06/27/19 07:47 Dose: 325 mg Ferrous Sulfate (Ferrous Sulfate) 325 mg PO BID [facility] Fluconazole (Diflucan) 100 mg PO ONETIME ONE Stop: 06/26/19 11:59 Last Admin: 06/26/19 12:54 Dose: 100 mg Furosemide (Lasix) 40 mg IVPUSH Q8H [facility] Last Admin: 06/27/19 11:51 Dose: 40 mg Guaifenesin/Dextromethorphan (Mucinex Dm Er 600-30 Mg) 1 tab PO BID [facility] Last Admin: 06/27/19 07:46 Dose: 1 tab Ceftriaxone Sodium 1 gm/ (Sodium Chloride) 100 mls @ 200 mls/hr IV Q12H [facility] Last Admin: 06/27/19 00:30 Dose: 200 mls/hr Levofloxacin/Dextrose 500 mg/ (Premix) 100 mls @ 100 mls/hr IV Q24H [facility] Last Admin: 06/27/19 13:44 Dose: Not Given Insulin Glargine (Lantus) 6 unit SUBCUT BID [facility] Lactobacillus Rhamnosus (Culturelle) 2 cap PO BID [facility] Last Admin: 06/27/19 07:46 Dose: 2 cap Potassium Chloride (Klor-Con M20) 20 meq PO TID [facility] Last Admin: 06/27/19 11:50 Dose: 20 meq Sodium Chloride (Saline Flush) 10 ml FLUSH Q12H [facility] Last Admin: 06/27/19 11:51 Dose: 10 ml - Exam General: Alert, Oriented, Cooperative Lungs: Normal Respiratory Effort, Wheezing (Mild expiratory wheezing throughout) . No: Rhonchi Cardiovascular: Regular Rate, Regular Rhythm GI/Abdominal Exam: Normal Bowel Sounds, Soft, Non-Tender, No Distention, No Mass (Female) Exam: Deferred Skin: Warm, Dry Neurological: No New Focal Deficit Sepsis Event Note - Evaluation Sepsis Screening Result: No Definite Risk - Focused Exam Vital Signs: Vital Signs Temp Pulse Pulse Resp BP BP Pulse Ox 06/27/19 20:09 82 140/86 06/27/19 20:02 37.1 C 82 20 140/86 98 Date Exam was Performed: 06/28/19 Time Exam was Performed: 08:57 - Problem List Review Problem List Initiated/Reviewed/Updated: Yes - Assessment Assessment:: Overall doing well. We will continue with the current medications and breathing treatments. Recheck metabolic panel in the morning given the mild elevation of the BUN and creatinine. - Plan Plan:: As above. Extensive precautions were given to the patient, who is in agreement with the treatment plan. The patient will require about 2-3 days of inpatient/ acute care secondary to multiple health problems as above. blemish remover physician assumes care later today with further recommendations as above.
[2019-06-28] MEDS: Furosemide 20 MG/2 ML VIAL IVPUSH SCH ×2 (08:07→19:51)
[2019-06-28] MEDS: Insulin Lispro 100 Units/ML 3 ML Vial SUBCUT SCH ×4 (08:07→20:01)
[2019-06-28] MEDS: Sodium Chloride 0.9% 10 ML Syringe FLUSH SCH ×2 (08:08→19:51)
[2019-06-28] MEDS: Insulin Glarg,Human.Rec.Analog 100 Unit/ML SUBCUT SCH ×2 (08:10→20:02)
[2019-06-28] MEDS: Clotrimazole 1% Crm 30 GM Tube TOP SCH ×2 (08:10→19:50)
[2019-06-28] MEDS: Dorzolamide 2% Ophth Soln 10 ML Bottle EYEBOTH SCH ×2 (08:12→19:58)
[2019-06-28] MEDS: Ferrous Sulfate 325 MG Tab PO SCH ×2 (08:13→11:30)
[2019-06-28] MEDS: Potassium Chloride 20 MEQ Tab.ER PO SCH ×3 (08:13→19:48)
[2019-06-28] MEDS: Dextromethorphan/guaiFENesin 600-30 MG Tab.ER PO SCH ×2 (08:13→19:48)
[2019-06-28] MEDS: Losartan 50 MG Tab PO SCH (08:16)
[2019-06-28] MEDS: Lactobacillus Rhamnosus GG (Probiotic) Cap PO SCH ×2 (08:17→19:49)
[2019-06-28] MEDS: Aspirin 81 MG Tab.EC PO SCH (08:17)
[2019-06-28] MEDS: Carvedilol 25 MG Tab PO SCH ×2 (08:18→19:49)
[2019-06-28] MEDS ORDERED: Loperamide 2 MG Tab PO ONE (09:58)
[2019-06-28] MEDS ORDERED: Loperamide 2 MG Tab PO PRN (10:00)
[2019-06-28] MEDS: cefTRIAXone 1 GM in Sodium Chloride 0.9% 100 ML IV SCH (11:27)
[2019-06-28] MEDS: Sodium Chloride 0.9% 10 ML Syringe FLUSH PRN ×2 (11:27→16:15)
[2019-06-28] MEDS: Famotidine 20 MG Tab PO SCH (11:30)
[2019-06-28] MEDS: Levofloxacin/Dextrose 5%-Water 500 MG in Premix Bag 1 BAG IV SCH (16:15)
[2019-06-28] MEDS: Calcium Carbonate 750 MG Tab.Chew PO SCH (19:48)
[2019-06-28] MEDS: atorvaSTATin 40 MG Tab PO SCH (19:49)
[2019-06-28] MEDS: Latanoprost 0.005% Ophth Soln 2.5 ML Bottle EYEBOTH SCH (19:58)
[2019-06-29] MEDS: Insulin Lispro 100 Units/ML 3 ML Vial SUBCUT SCH ×4 (08:04→20:04)
[2019-06-29] MEDS: Clotrimazole 1% Crm 30 GM Tube TOP SCH ×2 (08:05→19:59)
[2019-06-29] MEDS: Insulin Glarg,Human.Rec.Analog 100 Unit/ML SUBCUT SCH ×2 (08:06→20:06)
[2019-06-29] MEDS: Albuterol/Ipratropium 3.0-0.5 MG/3 ML Neb Soln NEB SCH ×4 (08:07→20:09)
[2019-06-29] MEDS: Furosemide 20 MG/2 ML VIAL IVPUSH SCH ×2 (08:08→19:49)
[2019-06-29] MEDS: Budesonide 0.5 MG/2 ML Neb Susp NEB SCH ×2 (08:08→20:09)
[2019-06-29] MEDS: Sodium Chloride 0.9% 10 ML Syringe FLUSH SCH ×2 (08:08→19:49)
[2019-06-29] MEDS: Carvedilol 25 MG Tab PO SCH ×2 (08:10→19:45)
[2019-06-29] MEDS: Potassium Chloride 20 MEQ Tab.ER PO SCH ×3 (08:10→19:45)
[2019-06-29] MEDS: Ferrous Sulfate 325 MG Tab PO SCH ×2 (08:10→11:36)
[2019-06-29] MEDS: Aspirin 81 MG Tab.EC PO SCH (08:11)
[2019-06-29] MEDS: Dorzolamide 2% Ophth Soln 10 ML Bottle EYEBOTH SCH ×2 (08:11→19:59)
[2019-06-29] MEDS: Losartan 50 MG Tab PO SCH (08:11)
[2019-06-29] MEDS: Dextromethorphan/guaiFENesin 600-30 MG Tab.ER PO SCH ×2 (08:11→19:46)
[2019-06-29] MEDS: Lactobacillus Rhamnosus GG (Probiotic) Cap PO SCH ×2 (08:11→19:46)
--- NOTE | 2019-06-29 09:41 | PCM.PN ---
- General Info Date of Service: 06/29/19 Admission Dx/Problem (Free Text): 1. CHF 2. Left lower lobe pneumonia 3. COPD-O2 dependent 4. IDDM Subjective Update: Overall doing well. Still complaining of a dry cough and some mild chest congestion. No significant wheezing. She denies shortness of breath. No chest pain or tightness. No abdominal pain, nausea or vomiting. No fever or chills. - Review of Systems General: Denies: Fever, Weakness HEENT: Denies: Sinus Congestion, Sore Throat Pulmonary: Reports: Cough. Denies: Shortness of Breath, Sputum Cardiovascular: Denies: Chest Pain, Palpitations Gastrointestinal: Denies: Abdominal Pain, Nausea, Vomiting Skin: Denies: Rash Neurological: Denies: Confusion, Dizziness - Patient Data Vitals - Most Recent: Last Vital Signs Temp 36.6 C 06/29/19 08:00 Pulse 72 06/29/19 08:10 Resp 16 06/29/19 08:00 BP 150/85 H 06/29/19 08:11 Pulse Ox 98 06/29/19 08:00 Weight - Most Recent: 82.463 kg I&O - Last 24 Hours: Intake & Output 06/28/19 06/29/19 06/29/19 22:59 06:59 14:59 Intake Total 340 200 Balance 340 200 Lab Results Last 24 Hours: Laboratory Results - last 24 hr 06/28/19 06/28/19 06/28/19 Range/Units 11:21 16:57 20:01 POC Glucose 206 H 182 H 111 H (65-110) mg/dl Pool Results Last 24 Hours: Microbiology 06/26/19 10:40 Aerobic Blood Culture - Preliminary Blood - Venous - Lab Draw NO GROWTH AFTER 2 DAYS Anaerobic Blood Culture - Preliminary NO GROWTH AFTER 2 DAYS 06/26/19 10:25 Aerobic Blood Culture - Preliminary Blood - Venous NO GROWTH AFTER 2 DAYS Anaerobic Blood Culture - Preliminary NO GROWTH AFTER 2 DAYS Med Orders - Current: Current Medications Acetaminophen (Tylenol) 650 mg PO Q4H PRN PRN Reason: Pain/Fever Albuterol (Proventil Neb Soln) 2.5 mg NEB Q2H PRN PRN Reason: Dyspnea Albuterol/Ipratropium (Duoneb 3.0-0.5 Mg/3 Ml) 3 ml NEB Q4HRRT PRN PRN Reason: Dyspnea Albuterol/Ipratropium (Duoneb 3.0-0.5 Mg/3 Ml) 3 ml NEB QID [facility] [place] Last Admin: 06/29/19 08:07 Dose: 3 ml Aspirin (Halfprin) 81 mg PO DAILY [facility] [place] Last Admin: 06/29/19 08:11 Dose: 81 mg Atorvastatin Calcium (Lipitor) 40 mg PO BEDTIME [facility] [place] Last Admin: 06/28/19 19:49 Dose: 40 mg Budesonide (Pulmicort) 0.5 mg NEB BIDRT [facility] [place] Last Admin: 06/29/19 08:08 Dose: 0.5 mg Calcium Carbonate/Glycine (Tums Extra Strength) 1,500 mg PO BEDTIME [facility] [place] Last Admin: 06/28/19 19:48 Dose: 1,500 mg Carvedilol (Coreg) 25 mg PO Q12HR [facility] [place] Last Admin: 06/29/19 08:10 Dose: 25 mg Clotrimazole (Lotrimin Af 1% Crm) 1 gm TOP Q12HR [facility] [place] Last Admin: 06/29/19 08:05 Dose: 1 applic Dorzolamide HCl (Trusopt 2% Ophth Soln) 0 ml EYEBOTH Q12HR [facility] [place] Last Admin: 06/29/19 08:11 Dose: 1 drop Famotidine (Pepcid) 20 mg PO DAILY@1200 [facility] [place] Last Admin: 06/28/19 11:30 Dose: 20 mg Ferrous Sulfate (Ferrous Sulfate) 325 mg PO BID@0800,1200 [facility] [place] Last Admin: 06/29/19 08:10 Dose: 325 mg Furosemide (Lasix) 60 mg IVPUSH Q12HR [facility] [place] Last Admin: 06/29/19 08:08 Dose: 60 mg Guaifenesin/Dextromethorphan (Mucinex Dm Er 600-30 Mg) 1 tab PO Q12HR [facility] [place] Last Admin: 06/29/19 08:11 Dose: 1 tab Ceftriaxone Sodium 1 gm/ (Sodium Chloride) 100 mls @ 200 mls/hr IV Q24H [facility] [place] Last Admin: 06/28/19 11:27 Dose: 200 mls/hr Levofloxacin/Dextrose 500 mg/ (Premix) 100 mls @ 100 mls/hr IV Q24H [facility] [place] Last Admin: 06/28/19 16:15 Dose: 100 mls/hr Insulin Glargine (Lantus) 6 unit SUBCUT Q12HR [facility] [place] Last Admin: 06/29/19 08:06 Dose: 6 units Insulin Human Lispro (Humalog) 0 unit SUBCUT QIDACANDBED [facility] [place]; Protocol Last Admin: 06/29/19 08:04 Dose: Not Given Lactobacillus Rhamnosus (Culturelle) 2 cap PO Q12HR [facility] [place] Last Admin: 06/29/19 08:11 Dose: 2 cap Latanoprost (Xalatan 0.005% Ophth Soln) 0 ml EYEBOTH BEDTIME [facility] [place] Last Admin: 06/28/19 19:58 Dose: 1 drop Loperamide HCl (Imodium Ad) 2 mg PO ASDIRECTED PRN PRN Reason: Diarrhea Losartan Potassium (Cozaar) 50 mg PO DAILY [facility] [place] Last Admin: 06/29/19 08:11 Dose: 50 mg Ondansetron HCl (Zofran) 4 mg IVPUSH Q6H PRN PRN Reason: Nausea/Vomiting Last Admin: 06/26/19 17:55 Dose: 4 mg Potassium Chloride (Klor-Con M20) 20 meq PO TID@0800,1200,2000 [facility] [place] Last Admin: 06/29/19 08:10 Dose: 20 meq Sodium Chloride (Saline Flush) 10 ml FLUSH ASDIRECTED PRN PRN Reason: Keep Vein Open Last Admin: 06/28/19 16:15 Dose: 10 ml Sodium Chloride (Saline Flush) 10 ml FLUSH Q12HR [facility] [place] Last Admin: 06/29/19 08:08 Dose: 10 ml Temazepam (Restoril) 15 mg PO BEDTIME PRN PRN Reason: Insomnia Discontinued Medications Albuterol/Ipratropium (Duoneb 3.0-0.5 Mg/3 Ml) 3 ml NEB Q6HRRT [facility] [place] Last Admin: 06/27/19 07:52 Dose: 3 ml Carvedilol (Coreg) 25 mg PO BID [facility] [place] Last Admin: 06/27/19 07:47 Dose: 25 mg Clotrimazole (Lotrimin Af 1% Crm) 1 gm TOP BID [facility] [place] Last Admin: 06/27/19 07:52 Dose: 1 dose Dorzolamide HCl (Trusopt 2% Ophth Soln) 0 ml EYEBOTH BID [facility] [place] Last Admin: 06/27/19 07:52 Dose: 1 drop Enoxaparin Sodium (Lovenox) 40 mg SUBCUT Q24H [facility] [place] Last Admin: 06/26/19 13:00 Dose: 40 mg Ferrous Sulfate (Ferrous Sulfate) 325 mg PO DAILY [facility] [place] Last Admin: 06/27/19 07:47 Dose: 325 mg Ferrous Sulfate (Ferrous Sulfate) 325 mg PO BID [facility] [place] Fluconazole (Diflucan) 100 mg PO ONETIME ONE Stop: 06/26/19 11:59 Last Admin: 06/26/19 12:54 Dose: 100 mg Furosemide (Lasix) 40 mg IVPUSH Q8H [facility] [place] Last Admin: 06/27/19 11:51 Dose: 40 mg Guaifenesin/Dextromethorphan (Mucinex Dm Er 600-30 Mg) 1 tab PO BID [facility] [place] Last Admin: 06/27/19 07:46 Dose: 1 tab Ceftriaxone Sodium 1 gm/ (Sodium Chloride) 100 mls @ 200 mls/hr IV Q12H [facility] [place] Last Admin: 06/27/19 00:30 Dose: 200 mls/hr Levofloxacin/Dextrose 500 mg/ (Premix) 100 mls @ 100 mls/hr IV Q24H [facility] [place] Last Admin: 06/27/19 13:44 Dose: Not Given Insulin Glargine (Lantus) 6 unit SUBCUT BID [facility] [place] Lactobacillus Rhamnosus (Culturelle) 2 cap PO BID [facility] [place] Last Admin: 06/27/19 07:46 Dose: 2 cap Loperamide HCl (Imodium Ad) 4 mg PO ONETIME ONE Stop: 06/28/19 09:59 Last Admin: 06/28/19 10:24 Dose: 4 mg Potassium Chloride (Klor-Con M20) 20 meq PO TID [facility] [place] Last Admin: 06/27/19 11:50 Dose: 20 meq Sodium Chloride (Saline Flush) 10 ml FLUSH Q12H [facility] [place] Last Admin: 06/27/19 11:51 Dose: 10 ml - Exam Quality Assessment: Supplemental Oxygen General: Alert, Oriented Lungs: Normal Respiratory Effort, Wheezing (Diffuse expiratory wheezing more at the bases. No rhonchi or rales.) Cardiovascular: Regular Rate, Regular Rhythm GI/Abdominal Exam: Normal Bowel Sounds, Soft, Non-Tender Skin: Warm, Dry Sepsis Event Note - Evaluation Sepsis Screening Result: No Definite Risk - Focused Exam Vital Signs: Vital Signs Temp Pulse Pulse Resp BP BP Pulse Ox 06/29/19 08:11 150/85 H 06/29/19 08:10 72 150/85 H 06/29/19 08:00 36.6 C 72 16 150/85 H 98 Date Exam was Performed: 06/29/19 Time Exam was Performed: 09:36 - Problem List Review Problem List Initiated/Reviewed/Updated: Yes - My Orders Last 24 Hours: My Active Orders 06/28/19 10:00 Loperamide [Imodium AD] 2 mg PO ASDIRECTED PRN - Assessment Assessment:: Overall doing well. We will continue with the current medications and breathing treatments. - Plan Plan:: We will continue with the breathing treatments and supplemental oxygen. Can wean the oxygen as tolerated. Check basic metabolic panel.
[2019-06-29] MEDS: Sodium Chloride 0.9% 10 ML Syringe FLUSH PRN ×2 (11:34→16:30)
[2019-06-29] MEDS: cefTRIAXone 1 GM in Sodium Chloride 0.9% 100 ML IV SCH (11:35)
[2019-06-29] MEDS: Famotidine 20 MG Tab PO SCH (11:36)
[2019-06-29] MEDS: Levofloxacin/Dextrose 5%-Water 500 MG in Premix Bag 1 BAG IV SCH (16:32)
[2019-06-29] MEDS: Calcium Carbonate 750 MG Tab.Chew PO SCH (19:45)
[2019-06-29] MEDS: atorvaSTATin 40 MG Tab PO SCH (19:46)
[2019-06-29] MEDS: Latanoprost 0.005% Ophth Soln 2.5 ML Bottle EYEBOTH SCH (20:08)
[2019-06-30] MEDS: Clotrimazole 1% Crm 30 GM Tube TOP SCH ×2 (09:04→20:59)
[2019-06-30] MEDS: Furosemide 20 MG/2 ML VIAL IVPUSH SCH ×2 (09:04→20:59)
[2019-06-30] MEDS: Budesonide 0.5 MG/2 ML Neb Susp NEB SCH ×2 (09:05→20:58)
[2019-06-30] MEDS: Insulin Glarg,Human.Rec.Analog 100 Unit/ML SUBCUT SCH ×2 (09:05→21:02)
[2019-06-30] MEDS: Insulin Lispro 100 Units/ML 3 ML Vial SUBCUT SCH ×4 (09:05→21:05)
[2019-06-30] MEDS: Albuterol/Ipratropium 3.0-0.5 MG/3 ML Neb Soln NEB SCH ×4 (09:05→20:59)
[2019-06-30] MEDS: Dorzolamide 2% Ophth Soln 10 ML Bottle EYEBOTH SCH ×2 (09:08→21:00)
[2019-06-30] MEDS: Dextromethorphan/guaiFENesin 600-30 MG Tab.ER PO SCH ×2 (09:13→20:52)
[2019-06-30] MEDS: Lactobacillus Rhamnosus GG (Probiotic) Cap PO SCH ×2 (09:14→20:52)
[2019-06-30] MEDS: Carvedilol 25 MG Tab PO SCH ×2 (09:14→20:53)
[2019-06-30] MEDS: Potassium Chloride 20 MEQ Tab.ER PO SCH ×3 (09:14→20:58)
[2019-06-30] MEDS: Losartan 50 MG Tab PO SCH (09:17)
[2019-06-30] MEDS: Aspirin 81 MG Tab.EC PO SCH (09:17)
[2019-06-30] MEDS: Ferrous Sulfate 325 MG Tab PO SCH ×2 (09:18→12:04)
[2019-06-30] MEDS: Sodium Chloride 0.9% 10 ML Syringe FLUSH SCH ×2 (09:18→20:45)
--- NOTE | 2019-06-30 09:42 | PCM.PN ---
- General Info Date of Service: 06/30/19 Admission Dx/Problem (Free Text): 1. CHF 2. COPD 3. Pneumonia 4. IDDM Functional Status: Reports: Pain Controlled, Tolerating Diet, Ambulating, Urinating, New Symptoms, Incentive Spirometry Pain Score: 0 - Review of Systems General: Reports: No Symptoms. Denies: Fever, Weakness, Fatigue, Malaise, Chills, Night Sweats, Appetite (Good) HEENT: Reports: No Symptoms. Denies: Ear Pain, Eye Pain, Headaches, Post Nasal Drip, Sinus Congestion, Sore Throat, Rhinitis, Visual Changes Pulmonary: Reports: No Symptoms. Denies: Shortness of Breath, Pleuritic Chest Pain, Cough, Sputum, Hemoptysis, Wheezing Cardiovascular: Reports: No Symptoms. Denies: Chest Pain, Palpitations, Dyspnea on Exertion, Orthopnea, Edema, Lightheadedness Gastrointestinal: Reports: Diarrhea (Somewhat loose bowel movements yesterday but normal today). Denies: Abdominal Pain, Constipation, Decreased Appetite, Difficulty Swallowing, Flatus, Hematochezia, Melena, Nausea, Vomiting Genitourinary: Reports: No Symptoms. Denies: Dysuria, Frequency, Burning, Pain , Urgency, Incontinence, Hematuria, Retention, Flank Pain Musculoskeletal: Reports: No Symptoms. Denies: Neck Pain, Shoulder Pain, Arm Pain, Back Pain, Leg Pain Skin: Reports: No Symptoms. Denies: Diaphoresis, Bruising, Pruritis, Rash Neurological: Reports: No Symptoms. Denies: Confusion, Numbness, Paresthesia, Pre-Existing Deficit, Tingling, Weakness Psychiatric: Reports: No Symptoms. Denies: Confusion, Depression, Anxiety, Agitation, Cravings, Hallucinations - Patient Data Vitals - Most Recent: Last Vital Signs Temp 36.8 C 06/29/19 19:42 Pulse 81 06/30/19 09:14 Resp 20 06/29/19 19:42 BP 150/92 H 06/30/19 09:17 Pulse Ox 99 06/29/19 19:42 Vital Signs - 24 hr 06/29/19 06/29/19 06/29/19 16:00 19:42 19:45 Temperature [ 36.6 C 36.8 C Temporal] Pulse, 83 Peripheral Pulse, 75 83 Peripheral [ Right Pulse Oximetry] Respiratory 18 20 Rate Blood Pressure 160/86 H Blood Pressure 143/87 H [Left Upper Arm ] Blood Pressure 160/86 H [Right Upper Arm] O2 Sat by Pulse 96 99 Oximetry 06/30/19 06/30/19 09:14 09:17 Temperature [ Temporal] Pulse, 81 Peripheral Pulse, Peripheral [ Right Pulse Oximetry] Respiratory Rate Blood Pressure 150/92 H 150/92 H Blood Pressure [Left Upper Arm ] Blood Pressure [Right Upper Arm] O2 Sat by Pulse Oximetry Weight - Most Recent: 82.463 kg I&O - Last 24 Hours: Intake & Output 06/29/19 06/30/19 06/30/19 22:59 06:59 14:59 Intake Total 420 200 Balance 420 200 Imaging Impressions - Last 24 Hours: child monitor shows normal sinus rhythm in the 80s with occasional PVCs. Lab Results Last 24 Hours: Laboratory Results - last 24 hr 06/29/19 06/29/19 06/29/19 Range/Units 08:03 09:55 11:31 Sodium 142 (136-145) mmol/L Potassium 4.5 (3.5-5.1) mmol/L Chloride 108 H (98-107) mmol/L Carbon Dioxide 28.9 (21.0-32.0) mmol/L BUN 43 H (7-18) mg/dL Creatinine 1.79 H (0.51-1.17) mg/dL Est Cr Clr Drug Dosing 19.23 mL/min Estimated GFR (MDRD) 27 mL/min Glucose 257 H (74-106) mg/dL POC Glucose 122 H 237 H (65-110) mg/dl Calcium 8.2 L (8.5-10.1) mg/dL 06/29/19 06/29/19 06/30/19 Range/Units 16:35 20:01 09:02 Sodium (136-145) mmol/L Potassium (3.5-5.1) mmol/L Chloride (98-107) mmol/L Carbon Dioxide (21.0-32.0) mmol/L BUN (7-18) mg/dL Creatinine (0.51-1.17) mg/dL Est Cr Clr Drug Dosing mL/min Estimated GFR (MDRD) mL/min Glucose (74-106) mg/dL POC Glucose 144 H 167 H 137 H (65-110) mg/dl Calcium (8.5-10.1) mg/dL Pool Results Last 24 Hours: Microbiology 04/02/20 10:40 Aerobic Blood Culture - Preliminary Blood - Venous - Lab Draw NO GROWTH AFTER 3 DAYS Anaerobic Blood Culture - Preliminary NO GROWTH AFTER 3 DAYS 06/26/19 10:25 Aerobic Blood Culture - Preliminary Blood - Venous NO GROWTH AFTER 3 DAYS Anaerobic Blood Culture - Preliminary NO GROWTH AFTER 3 DAYS Med Orders - Current: Current Medications Acetaminophen (Tylenol) 650 mg PO Q4H PRN PRN Reason: Pain/Fever Albuterol (Proventil Neb Soln) 2.5 mg NEB Q2H PRN PRN Reason: Dyspnea Albuterol/Ipratropium (Duoneb 3.0-0.5 Mg/3 Ml) 3 ml NEB Q4HRRT PRN PRN Reason: Dyspnea Albuterol/Ipratropium (Duoneb 3.0-0.5 Mg/3 Ml) 3 ml NEB QID [facility] Last Admin: 06/30/19 09:05 Dose: 3 ml Aspirin (Halfprin) 81 mg PO DAILY [facility] Last Admin: 06/30/19 09:17 Dose: 81 mg Atorvastatin Calcium (Lipitor) 40 mg PO BEDTIME [facility] Last Admin: 06/29/19 19:46 Dose: 40 mg Budesonide (Pulmicort) 0.5 mg NEB BIDRT [facility] Last Admin: 06/30/19 09:05 Dose: 0.5 mg Calcium Carbonate/Glycine (Tums Extra Strength) 1,500 mg PO BEDTIME [facility] Last Admin: 06/29/19 19:45 Dose: 1,500 mg Carvedilol (Coreg) 25 mg PO Q12HR [facility] Last Admin: 06/30/19 09:14 Dose: 25 mg Clotrimazole (Lotrimin Af 1% Crm) 1 gm TOP Q12HR [facility] Last Admin: 06/30/19 09:04 Dose: 1 applic Dorzolamide HCl (Trusopt 2% Ophth Soln) 0 ml EYEBOTH Q12HR [facility] Last Admin: 06/30/19 09:08 Dose: 2 drop Famotidine (Pepcid) 20 mg PO DAILY@1200 [facility] Last Admin: 06/29/19 11:36 Dose: 20 mg Ferrous Sulfate (Ferrous Sulfate) 325 mg PO BID@0800,1200 [facility] Last Admin: 06/30/19 09:18 Dose: 325 mg Furosemide (Lasix) 60 mg IVPUSH Q12HR [facility] Last Admin: 06/30/19 09:04 Dose: 60 mg Guaifenesin/Dextromethorphan (Mucinex Dm Er 600-30 Mg) 1 tab PO Q12HR [facility] Last Admin: 06/30/19 09:13 Dose: 1 tab Ceftriaxone Sodium 1 gm/ (Sodium Chloride) 100 mls @ 200 mls/hr IV Q24H [facility] Last Admin: 06/29/19 11:35 Dose: 200 mls/hr Levofloxacin/Dextrose 500 mg/ (Premix) 100 mls @ 100 mls/hr IV Q24H [facility] Last Admin: 06/29/19 16:32 Dose: 100 mls/hr Insulin Glargine (Lantus) 6 unit SUBCUT Q12HR [facility] Last Admin: 06/30/19 09:05 Dose: 6 units Insulin Human Lispro (Humalog) 0 unit SUBCUT QIDACANDBED [facility]; Protocol Last Admin: 06/30/19 09:05 Dose: Not Given Lactobacillus Rhamnosus (Culturelle) 2 cap PO Q12HR [facility] Last Admin: 06/30/19 09:14 Dose: 2 cap Latanoprost (Xalatan 0.005% Ophth Soln) 0 ml EYEBOTH BEDTIME [facility] Last Admin: 06/29/19 20:08 Dose: 1 drop Loperamide HCl (Imodium Ad) 2 mg PO ASDIRECTED PRN PRN Reason: Diarrhea Last Admin: 06/29/19 19:46 Dose: 2 mg Losartan Potassium (Cozaar) 50 mg PO DAILY [facility] Last Admin: 06/30/19 09:17 Dose: 50 mg Ondansetron HCl (Zofran) 4 mg IVPUSH Q6H PRN PRN Reason: Nausea/Vomiting Last Admin: 06/26/19 17:55 Dose: 4 mg Potassium Chloride (Klor-Con M20) 20 meq PO TID@0800,1200,2000 [facility] Last Admin: 06/30/19 09:14 Dose: 20 meq Sodium Chloride (Saline Flush) 10 ml FLUSH ASDIRECTED PRN PRN Reason: Keep Vein Open Last Admin: 06/29/19 16:30 Dose: 10 ml Sodium Chloride (Saline Flush) 10 ml FLUSH Q12HR [facility] Last Admin: 06/30/19 09:18 Dose: 10 ml Temazepam (Restoril) 15 mg PO BEDTIME PRN PRN Reason: Insomnia Discontinued Medications Albuterol/Ipratropium (Duoneb 3.0-0.5 Mg/3 Ml) 3 ml NEB Q6HRRT [facility] Last Admin: 06/27/19 07:52 Dose: 3 ml Carvedilol (Coreg) 25 mg PO BID [facility] Last Admin: 06/27/19 07:47 Dose: 25 mg Clotrimazole (Lotrimin Af 1% Crm) 1 gm TOP BID [facility] Last Admin: 06/27/19 07:52 Dose: 1 dose Dorzolamide HCl (Trusopt 2% Ophth Soln) 0 ml EYEBOTH BID [facility] Last Admin: 06/27/19 07:52 Dose: 1 drop Enoxaparin Sodium (Lovenox) 40 mg SUBCUT Q24H [facility] Last Admin: 06/26/19 13:00 Dose: 40 mg Ferrous Sulfate (Ferrous Sulfate) 325 mg PO DAILY [facility] Last Admin: 06/27/19 07:47 Dose: 325 mg Ferrous Sulfate (Ferrous Sulfate) 325 mg PO BID [facility] Fluconazole (Diflucan) 100 mg PO ONETIME ONE Stop: 06/26/19 11:59 Last Admin: 06/26/19 12:54 Dose: 100 mg Furosemide (Lasix) 40 mg IVPUSH Q8H [facility] Last Admin: 06/27/19 11:51 Dose: 40 mg Guaifenesin/Dextromethorphan (Mucinex Dm Er 600-30 Mg) 1 tab PO BID [facility] Last Admin: 06/27/19 07:46 Dose: 1 tab Ceftriaxone Sodium 1 gm/ (Sodium Chloride) 100 mls @ 200 mls/hr IV Q12H [facility] Last Admin: 06/27/19 00:30 Dose: 200 mls/hr Levofloxacin/Dextrose 500 mg/ (Premix) 100 mls @ 100 mls/hr IV Q24H [facility] Last Admin: 06/27/19 13:44 Dose: Not Given Insulin Glargine (Lantus) 6 unit SUBCUT BID [facility] Lactobacillus Rhamnosus (Culturelle) 2 cap PO BID [facility] Last Admin: 06/27/19 07:46 Dose: 2 cap Loperamide HCl (Imodium Ad) 4 mg PO ONETIME ONE Stop: 06/28/19 09:59 Last Admin: 06/28/19 10:24 Dose: 4 mg Potassium Chloride (Klor-Con M20) 20 meq PO TID [facility] Last Admin: 06/27/19 11:50 Dose: 20 meq Sodium Chloride (Saline Flush) 10 ml FLUSH Q12H [facility] Last Admin: 06/27/19 11:51 Dose: 10 ml - Exam Quality Assessment: Supplemental Oxygen, DVT Prophylaxis. No: Central Line/PICC , Urine Catheter, Skin Breakdown, Restraints General: Alert, Oriented, Cooperative, No Acute Distress HEENT: Pupils Equal, Pupils Reactive, EOMI, Mucous Membr. Moist/Luke. No: Scleral Icterus Neck: Supple, Trachea Midline, No JVD, No Thyromegaly, Carotid Bruit (Mild bilateral carotid bruits). No: Lymphadenopathy Lungs: Normal Respiratory Effort, Rales (Bilateral basilarmild) Cardiovascular: Regular Rate, Regular Rhythm, Murmurs (Stable 2/6 BATSHEVA of the mitral valve). No: Gallops, Rubs GI/Abdominal Exam: Normal Bowel Sounds, Soft, Non-Tender, No Organomegaly, No Distention, No Abnormal Bruit, No Mass, Other (Obese). No: Guarding (Female) Exam: Deferred Back Exam: Full Range of Motion, Other (Kyphosismild). No: CVA Tenderness (L) , CVA Tenderness (R), Muscle Spasm, Paraspinal Tenderness, Vertebral Tenderness Extremities: Normal Inspection, Normal Range of Motion, Non-Tender, No Pedal Edema, Normal Capillary Refill. No: Charlee's Sign Peripheral Pulses: 2+: Radial (L), Radial (R), Dorsalis Pedis (L), Dorsalis Pedis (R) Skin: Warm, Dry, Intact Neurological: No New Focal Deficit Psy/Mental Status: Alert, Normal Affect, Normal Mood. No: Agitated, Hallucinations, Withdrawal Symptoms Sepsis Event Note - Evaluation Sepsis Screening Result: No Definite Risk - Focused Exam Vital Signs: Vital Signs Pulse BP 06/30/19 09:17 150/92 H 06/30/19 09:14 81 150/92 H Date Exam was Performed: 06/30/19 Time Exam was Performed: 11:43 - Problem List & Annotations (1) CHF (congestive heart failure) SNOMED Code(s): 89296515 Code(s): I50.9 - HEART FAILURE, UNSPECIFIED Status: Acute Priority: High Current Visit: Yes Onset Date: 02/21/17 Qualifiers: Heart failure type: unspecified Heart failure chronicity: acute on chronic Qualified Code(s): I50.9 - Heart failure, unspecified Annotation/Comment:: History of recurrent CHF with exacerbation secondary to medication noncompliance prior to admission as per emergency room note. Somewhat slow response to aggressive IV Lasix therapy during early phases of this hospitalization, although somewhat improved BNP with secondary nonspecific troponin I change, which is still normal. No chest pain or anginal type symptoms either prior to admission or during this hospitalization. History of systolic cardiomyopathy with last echocardiogram on 08/26/18 with an ejection fraction of 45% at that time and otherwise findings as per emergency room note. Note history of pulmonary hypertension. Initiated aggressive IV Lasix therapy on admission with continued caution secondary to history of renal insufficiency and mild progressive creatinine elevation during this hospitalization. Rule out HI orders have been negative to this point with chest pain protocol not initiated in the emergency room secondary to absence of anginal complaints. Cardiology consultation depending on her clinical course. Medication compliance strongly encouraged. Finances are an issue. [facility] physician assumes care as the patient during the weekend. Review of her finances and current medical therapy for her heart disease, diabetes, etc. prior to discharge in order to improve medication compliance. She had to restart her as needed O2 therapy prior to admission with O2 sat of only 85% on room air in the emergency room. Note desaturation to 75% on room air while walking to the bathroom during this hospitalization . Otherwise desaturations have been stable with current oxygen supplementation. Repeat EKG, blood work, and chest x-ray in the a.m. (2) Coronary artery disease SNOMED Code(s): 87799113 Code(s): I25.10 - ATHSCL HEART DISEASE OF [place] CORONARY ARTERY W/O ANG PCTRS Status: Acute Priority: High Current Visit: Yes Onset Date: Qualifiers: Coronary Disease-Associated Artery/Lesion type: [place] artery [place] vs. transplanted heart: [place] heart Associated angina: with stable angina Qualified Code(s): I25.118 - Atherosclerotic heart disease of [place] coronary artery with other forms of angina pectoris Annotation/Comment:: As above (3) D-dimer, elevated SNOMED Code(s): 340131385 Code(s): R79.89 - OTHER SPECIFIED ABNORMAL FINDINGS OF BLOOD CHEMISTRY Status: Acute Priority: High Current Visit: Yes Onset Date: 02/21/17 Annotation/Comment:: Note previous negative workup as above. No clinical evidence of DVT or PE by today's exam. Initiated subcutaneous Lovenox at DVT prophylactic dose on admission, however this will be discontinued at this time secondary to her progressive anemia. Otherwise continue DVT prophylaxis, including LUIS CARLOS hose, ambulation, etc. D-dimer will be repeated in the a.m. secondary to low probability of possible COVID19 (4) PAC (premature atrial contraction) SNOMED Code(s): 676195561 Code(s): I49.1 - ATRIAL PREMATURE DEPOLARIZATION Status: Acute Priority: Medium Current Visit: Yes Onset Date: 06/26/19 Annotation/Comment:: Newly diagnosed on admission with no significant symptoms at this time. History of PVCs, etc. as per emergency room note with significant improvement after resumption of her medical therapy, etc.. (5) COPD (chronic obstructive pulmonary disease) SNOMED Code(s): 68085417 Code(s): J44.9 - CHRONIC OBSTRUCTIVE PULMONARY DISEASE, UNSPECIFIED Status : Chronic Priority: Medium Current Visit: Yes Qualifiers: COPD type: emphysema Emphysema type: panlobular Qualified Code(s): J43.1 - Panlobular emphysema Annotation/Comment:: Possible beginning left lower lobe pneumonia. Note mild WBC elevation secondary to stress reaction on admission, which has since resolved.. Initiated IV Rocephin and IV Cipro therapy with additional triple and DuoNeb nebulizer treatments on admission, with IV Rocephin to be decreased to a every 24 hours basis to limit staff exposure. Note patient is afebrile with no leukocytosis at this time. Evaluation of COVID-19 was extensively considered on admission with no direct clinical indication of this with admission symptoms to CHF, COPD, medication noncompliance, etc. as above. Standard droplet precautions were initiated on admission, however. Note the patient is afebrile today and had been previously following contact precautions , etc. as per current national policy. In the interest of staff safety, etc. COVID-19 was collected on 06/26, however results are still pending. (6) Diabetes mellitus SNOMED Code(s): 78513605 Code(s): E11.9 - TYPE 2 DIABETES MELLITUS WITHOUT COMPLICATIONS Status: Chronic Priority: Medium Current Visit: Yes Qualifiers: Diabetes mellitus type: type 2 Diabetes mellitus long-term insulin use: with adjunct faculty for medical terminology use Diabetes mellitus complication status: with kidney complications Diabetes mellitus complication detail: with chronic kidney disease Chronic kidney disease stage: stage 3 (moderate) Qualified Code(s): E11.22 - Type 2 diabetes mellitus with diabetic chronic kidney disease; N18.3 - Chronic kidney disease, stage 3 (moderate); 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 Home Accu-Cheks ranging in the 190s 260s prior to admission with twice a day Accu-Cheks at home by her history. Glycosylated hemoglobin on 06/26 is elevated at 7.8%. Accu-Cheks stable during this hospitalization with sliding scale in effect. Compliance with diet encouraged with current obesity. Close follow-up by regular provider after discharge. (7) Hyperlipidemia SNOMED Code(s): 14849405 Code(s): E78.5 - HYPERLIPIDEMIA, UNSPECIFIED Status: Chronic Priority: Medium Current Visit: Yes Qualifiers: Hyperlipidemia type: mixed hyperlipidemia Qualified Code(s): E78.2 - Mixed hyperlipidemia Annotation/Comment:: Currently under therapy with normal lipid panel on 06/26. Weight loss in moderation, dietary compliance, etc. as above. (8) Hypertension SNOMED Code(s): 49148517 Code(s): I10 - ESSENTIAL (PRIMARY) HYPERTENSION Status: Chronic Priority : Medium Current Visit: Yes Qualifiers: Hypertension type: essential hypertension Qualified Code(s): I10 - Essential (primary) hypertension Annotation/Comment:: Blood Pressures under moderate control in the emergency room with recent medication noncompliance as above. Blood pressures were significantly improved during this hospitalization after resumption of her previous medical therapy, although some medication adjustments were required. Continue to observe closely by her regular provider. (9) Osteoarthritis SNOMED Code(s): 724052411 Code(s): M19.90 - UNSPECIFIED OSTEOARTHRITIS, UNSPECIFIED SITE Status: Chronic Priority: High Current Visit: Yes Qualifiers: Osteoarthritis location: multiple joints Osteoarthritis type: primary Qualified Code(s): M89.49 - Other hypertrophic osteoarthropathy, multiple sites Annotation/Comment:: Stable by history and during this hospitalization (10) Peptic reflux disease SNOMED Code(s): 650089223 Code(s): K21.9 - GASTRO-ESOPHAGEAL REFLUX DISEASE WITHOUT ESOPHAGITIS Status: Chronic Priority: Medium Current Visit: Yes Annotation/Comment:: Stable by history. Secondary to patient's anemia oral Pepcid will be initiated as prophylaxis. (11) Tobacco abuse counseling SNOMED Code(s): 963595485, 687241740, 087673081 Code(s): Z71.6 - TOBACCO ABUSE COUNSELING Status: Chronic Priority: Medium Current Visit: Yes Annotation/Comment:: Tobacco smoke exposure was once again extensively discussed with the patient and her son at time of admission with tobacco cessation information to be provided at discharge. (12) Anemia SNOMED Code(s): 175038383 Code(s): D64.9 - ANEMIA, UNSPECIFIED Status: Acute Priority: High Current Visit: Yes Onset Date: 02/27/18 Qualifiers: Anemia type: iron deficiency Iron deficiency anemia type: unspecified iron deficiency Qualified Code(s): D50.9 - Iron deficiency anemia, unspecified Annotation/Comment:: History of iron deficiency with history of medication noncompliance of her iron sulfate for quite some time. Reinitiated iron sulfate supplementation on admission, although this was increased to a twice a day regimen secondary to progressive anemia on 06/26. No evidence of acute GI bleed, etc. Lovenox was discontinued as above. Recommend repeat iron studies about one month after discharge. (13) Hypoalbuminemia SNOMED Code(s): 837503517 Code(s): E88.09 - OTH DISORDERS OF PLASMA-PROTEIN METABOLISM, NEC Status: Chronic Priority: Medium Current Visit: No Onset Date: 02/21/17 Annotation/Comment:: High-protein Glucerna supplements as snacks twice a day was once again initiated during this hospitalization with close follow-up by regular providers. (14) Hypomagnesemia SNOMED Code(s): 541061092 Code(s): E83.42 - HYPOMAGNESEMIA Status: Acute Priority: Medium Current Visit: No Onset Date: 02/21/17 Annotation/Comment:: Note medication noncompliance as above with low-normal magnesium level on admission. Resume medical therapy secondary to Lasix therapy. Continue close observation by her regular providers. (15) Diabetic nephropathy Status: Chronic Priority: Medium Current Visit: Yes Qualifiers: Diabetes mellitus type: type 2 Qualified Code(s): E11.21 - Type 2 diabetes mellitus with diabetic nephropathy Annotation/Comment:: As above (16) Hypocalcemia SNOMED Code(s): 8502128 Code(s): E83.51 - HYPOCALCEMIA Status: Chronic Priority: Medium Current Visit: Yes Onset Date: 03/01/18 Annotation/Comment:: OTC Tums as calcium supplementation and GI prophylaxis resumed on 06/26. Continue to observe closely by regular provider. - Problem List Review Problem List Initiated/Reviewed/Updated: Yes - Assessment Assessment:: As above - Plan Plan:: As above. Extensive precautions were given to the patient, who is in agreement with the treatment plan. Likely hospital discharge tomorrow.
[2019-06-30] MEDS: Sodium Chloride 0.9% 10 ML Syringe FLUSH PRN ×2 (11:59→16:55)
[2019-06-30] MEDS: Spironolactone 25 MG Tab PO SCH ×2 (12:03→20:50)
[2019-06-30] MEDS: Famotidine 20 MG Tab PO SCH (12:05)
[2019-06-30] MEDS: cefTRIAXone 1 GM in Sodium Chloride 0.9% 100 ML IV SCH (12:20)
[2019-06-30] MEDS: Levofloxacin/Dextrose 5%-Water 500 MG in Premix Bag 1 BAG IV SCH (16:55)
[2019-06-30] MEDS ORDERED: Carvedilol 25 MG Tab PO SCH (20:00)
[2019-06-30] MEDS: Calcium Carbonate 750 MG Tab.Chew PO SCH (20:52)
[2019-06-30] MEDS: atorvaSTATin 40 MG Tab PO SCH (20:57)
[2019-06-30] MEDS: Latanoprost 0.005% Ophth Soln 2.5 ML Bottle EYEBOTH SCH (21:01)
[2019-07-01] MEDS: Furosemide 20 MG/2 ML VIAL IVPUSH SCH (08:32)
[2019-07-01] MEDS: Albuterol/Ipratropium 3.0-0.5 MG/3 ML Neb Soln NEB SCH ×2 (08:33→11:47)
[2019-07-01] MEDS: Lactobacillus Rhamnosus GG (Probiotic) Cap PO SCH (08:33)
[2019-07-01] MEDS: Budesonide 0.5 MG/2 ML Neb Susp NEB SCH (08:33)
[2019-07-01] MEDS: Potassium Chloride 20 MEQ Tab.ER PO SCH ×2 (08:33→11:47)
[2019-07-01] MEDS: Dextromethorphan/guaiFENesin 600-30 MG Tab.ER PO SCH (08:33)
[2019-07-01] MEDS: Ferrous Sulfate 325 MG Tab PO SCH ×2 (08:34→11:47)
[2019-07-01] MEDS: Aspirin 81 MG Tab.EC PO SCH (08:34)
[2019-07-01] MEDS: Spironolactone 25 MG Tab PO SCH (08:34)
[2019-07-01] MEDS: Sodium Chloride 0.9% 10 ML Syringe FLUSH SCH (08:35)
[2019-07-01] MEDS: Insulin Lispro 100 Units/ML 3 ML Vial SUBCUT SCH ×2 (08:37→11:48)
[2019-07-01] MEDS: Insulin Glarg,Human.Rec.Analog 100 Unit/ML SUBCUT SCH (08:39)
[2019-07-01] MEDS: Clotrimazole 1% Crm 30 GM Tube TOP SCH (08:41)
[2019-07-01] MEDS: Dorzolamide 2% Ophth Soln 10 ML Bottle EYEBOTH SCH (08:42)
[2019-07-01] MEDS: Losartan 50 MG Tab PO SCH (08:46)
[2019-07-01] MEDS: Carvedilol 25 MG Tab PO SCH (08:46)
--- NOTE | 2019-07-01 11:01 | PCM.DCSUM1 ---
Discharge Summary - Hospital Course HPI Initial Comments: See emergency room note/admission H&P Brief History: See emergency room note/admission H&P Diagnosis: Stroke: No Modified [place] Scale: No Symptoms at All Modified [place] Scale Score: 0 - Discharge Data Discharge Date: 07/01/19 Discharge Disposition: Home, Self-Care 01 Condition: Good - Referral to Home Health Primary Care Physician: Velia Alfredo FORKLIFT OPERATOR - Discharge Diagnosis/Problem(s) (1) CHF (congestive heart failure) SNOMED Code(s): 06991687 ICD Code: I50.9 - HEART FAILURE, UNSPECIFIED Status: Acute Priority: High Current Visit: Yes Onset Date: 02/21/17 Problem Details: History of recurrent CHF with exacerbation secondary to medication noncompliance prior to admission as per emergency room note. Somewhat slow response to aggressive IV Lasix therapy during early phases of this hospitalization, although somewhat improved BNP with secondary nonspecific troponin I change, which is still normal. No chest pain or anginal type symptoms either prior to admission or during this hospitalization. History of systolic cardiomyopathy with last echocardiogram on 08/26/18 with an ejection fraction of 45% at that time and otherwise findings as per emergency room note. Note history of pulmonary hypertension. Initiated aggressive IV Lasix therapy on admission with continued caution secondary to history of renal insufficiency and mild progressive creatinine elevation during this hospitalization. Rule out PA orders were negative with chest pain protocol not initiated in the emergency room secondary to absence of anginal complaints. Cardiology consultation depending on her clinical course. Medication compliance strongly encouraged. Finances are an issue. [facility] physician assumed care as the patient during the weekend. Review of her finances and current medical therapy for her heart disease, diabetes, etc. prior to discharge in order to improve medication compliance. She had to restart her as needed O2 therapy prior to admission with O2 sat of only 85% on room air in the emergency room. Note desaturation to 75% on room air while walking to the bathroom earlier during this hospitalization. Persistent hypoxia with limited ambulation with O2 sat of 87% on room air with ambulation, however improved to 92% with O2 at 2 L/m by nasal cannula. No cardiac arrhythmia with ambulation. She will be discharged with O2 on a continuous basis and she ordered it has oxygen at home as above. Otherwise desaturations have been stable with current oxygen supplementation. Consider dobutamine Cardiolite stress test by her regular provider. Qualifiers: Heart failure type: unspecified Heart failure chronicity: acute on chronic Qualified Code(s): I50.9 - Heart failure, unspecified (2) Coronary artery disease SNOMED Code(s): 84096029 ICD Code: I25.10 - ATHSCL HEART DISEASE OF [place] CORONARY ARTERY W/O ANG PCTRS Status: Acute Priority: High Current Visit: Yes Onset Date: Problem Details: As above Qualifiers: Coronary Disease-Associated Artery/Lesion type: [place] artery [place] vs. transplanted heart: [place] heart Associated angina: with stable angina Qualified Code(s): I25.118 - Atherosclerotic heart disease of [place] coronary artery with other forms of angina pectoris (3) D-dimer, elevated SNOMED Code(s): 927627359 ICD Code: R79.89 - OTHER SPECIFIED ABNORMAL FINDINGS OF BLOOD CHEMISTRY Status: Acute Priority: High Current Visit: Yes Onset Date: 02/21/17 Problem Details: Note previous negative workup as above. No clinical evidence of DVT or PE by today's exam. Initiated subcutaneous Lovenox at DVT prophylactic dose on admission, however this was discontinued secondary to her progressive anemia, which has now improved. Otherwise continue DVT prophylaxis, including LUIS CARLOS hose, ambulation, etc. D-dimer remained somewhat elevated at discharge with continued close observation by her regular provider. Low probability of possible COVID19 infection. (4) PAC (premature atrial contraction) SNOMED Code(s): 151981143 ICD Code: I49.1 - ATRIAL PREMATURE DEPOLARIZATION Status: Acute Priority : Medium Current Visit: Yes Onset Date: 06/26/19 Problem Details: Newly diagnosed on admission with no significant symptoms at this time. History of PVCs, etc. as per emergency room note with significant improvement after resumption of her medical therapy, etc.. (5) COPD (chronic obstructive pulmonary disease) SNOMED Code(s): 89525172 ICD Code: J44.9 - CHRONIC OBSTRUCTIVE PULMONARY DISEASE, UNSPECIFIED Status : Chronic Priority: Medium Current Visit: Yes Problem Details: Possible beginning left lower lobe pneumonia however resolved at time of discharge based on chest x-ray. Note mild WBC elevation secondary to stress reaction on admission, which has since resolved.. Initiated IV Rocephin and IV Cipro therapy with additional triple and DuoNeb nebulizer treatments on admission, with IV Rocephin to be decreased to a every 24 hours basis to limit staff exposure. Note patient is afebrile with no leukocytosis at this time. Evaluation of COVID-19 was extensively considered on admission with no direct clinical indication of this with admission symptoms to CHF, COPD, medication noncompliance, etc. as above. Standard droplet precautions were initiated on admission, however. Note the patient is afebrile today and had been previously following contact precautions, etc. as per current national policy. In the interest of staff safety, etc. COVID-19 was collected on 06/26, however results are still pending. Qualifiers: COPD type: emphysema Emphysema type: panlobular Qualified Code(s): J43.1 - Panlobular emphysema (6) Diabetes mellitus SNOMED Code(s): 70745999 ICD Code: E11.9 - TYPE 2 DIABETES MELLITUS WITHOUT COMPLICATIONS Status: Chronic Priority: Medium Current Visit: Yes Problem Details: Finances are an issue. Home Accu-Cheks ranging in the [id number] prior to admission with twice a day Accu-Cheks at home by her history. Glycosylated hemoglobin on 06/26 is elevated at 7.8%. Accu-Cheks stable during this hospitalization with sliding scale in effect. Compliance with diet encouraged with current obesity. Close follow-up by regular provider after discharge. Qualifiers: Diabetes mellitus type: type 2 Diabetes mellitus jail insulin use: with keno terminal operator use Diabetes mellitus complication status: with kidney complications Diabetes mellitus complication detail: with chronic kidney disease Chronic kidney disease stage: stage 3 (moderate) Qualified Code(s): E11.22 - Type 2 diabetes mellitus with diabetic chronic kidney disease; N18.3 - Chronic kidney disease, stage 3 (moderate); Z79.4 - FDC (current) use of insulin (7) Hyperlipidemia SNOMED Code(s): 24617332 ICD Code: E78.5 - HYPERLIPIDEMIA, UNSPECIFIED Status: Chronic Priority: Medium Current Visit: Yes Problem Details: Currently under therapy with normal lipid panel on 06/26. Weight loss in moderation, dietary compliance, etc. as above. Qualifiers: Hyperlipidemia type: mixed hyperlipidemia Qualified Code(s): E78.2 - Mixed hyperlipidemia (8) Hypertension SNOMED Code(s): 50576315 ICD Code: I10 - ESSENTIAL (PRIMARY) HYPERTENSION Status: Chronic Priority : Medium Current Visit: Yes Problem Details: Blood Pressures under moderate control in the emergency room with recent medication noncompliance as above. Blood pressures were significantly improved during this hospitalization after resumption of her previous medical therapy, although some medication adjustments were required. Continue to observe closely by her regular provider. Qualifiers: Hypertension type: essential hypertension Qualified Code(s): I10 - Essential (primary) hypertension (9) Osteoarthritis SNOMED Code(s): 474171273 ICD Code: M19.90 - UNSPECIFIED OSTEOARTHRITIS, UNSPECIFIED SITE Status: Chronic Priority: High Current Visit: Yes Problem Details: Stable by history and during this hospitalization Qualifiers: Osteoarthritis location: multiple joints Osteoarthritis type: primary Qualified Code(s): M89.49 - Other hypertrophic osteoarthropathy, multiple sites (10) Peptic reflux disease SNOMED Code(s): 799977169 ICD Code: K21.9 - GASTRO-ESOPHAGEAL REFLUX DISEASE WITHOUT ESOPHAGITIS Status: Chronic Priority: Medium Current Visit: Yes Problem Details: Stable by history. Secondary to patient's anemia oral Pepcid will be initiated as prophylaxis. (11) Tobacco abuse counseling SNOMED Code(s): 006617041, 376347446, 535704596 ICD Code: Z71.6 - TOBACCO ABUSE COUNSELING Status: Chronic Priority: Medium Current Visit: Yes Problem Details: Tobacco smoke exposure was once again extensively discussed with the patient and her son at time of admission with tobacco cessation information to be provided at discharge. (12) Anemia SNOMED Code(s): 895888600 ICD Code: D64.9 - ANEMIA, UNSPECIFIED Status: Acute Priority: High Current Visit: Yes Onset Date: 02/27/18 Problem Details: History of iron deficiency with history of medication noncompliance of her iron sulfate for quite some time. Reinitiated iron sulfate supplementation on admission, although this was increased to a twice a day regimen secondary to progressive anemia on 06/26. No evidence of acute GI bleed, etc. Lovenox was discontinued as above. Recommend repeat iron studies about one month after discharge. Qualifiers: Anemia type: iron deficiency Iron deficiency anemia type: unspecified iron deficiency Qualified Code(s): D50.9 - Iron deficiency anemia, unspecified (13) Hypoalbuminemia SNOMED Code(s): 351595377 ICD Code: E88.09 - OTH DISORDERS OF PLASMA-PROTEIN METABOLISM, NEC Status: Chronic Priority: Medium Current Visit: No Onset Date: 02/21/17 Problem Details: High-protein Glucerna supplements as snacks twice a day was once again initiated during this hospitalization with close follow-up by regular providers. (14) Hypomagnesemia SNOMED Code(s): 997463385 ICD Code: E83.42 - HYPOMAGNESEMIA Status: Acute Priority: Medium Current Visit: No Onset Date: 02/21/17 Problem Details: Note medication noncompliance as above with low-normal magnesium level on admission. Resume medical therapy secondary to Lasix therapy. Continue close observation by her regular providers. (15) Diabetic nephropathy Status: Chronic Priority: Medium Current Visit: Yes Problem Details: As above Qualifiers: Diabetes mellitus type: type 2 Qualified Code(s): E11.21 - Type 2 diabetes mellitus with diabetic nephropathy (16) Hypocalcemia SNOMED Code(s): 3079642 ICD Code: E83.51 - HYPOCALCEMIA Status: Chronic Priority: Medium Current Visit: Yes Onset Date: 03/01/18 Problem Details: OTC Tums as calcium supplementation and GI prophylaxis resumed on 06/26. Continue to observe closely by regular provider. (17) Hyperkalemia SNOMED Code(s): 42494534 ICD Code: E87.5 - HYPERKALEMIA Status: Acute Priority: High Current Visit: Yes Onset Date: 07/01/19 Problem Details: Mild hyperkalemia today with supplementation to be decreased at discharge. Close observation by her regular provider. - Patient Summary/Data Operative Procedure(s) Performed: None Complications: None Consults: None Labs Pending at D/C: 1. COVID-19 Recommended Follow-up Testing/Procedures: As per discharge instructions Planned Operative Procedure(s) after DC: None Hospital Course: Patient was admitted to inpatient/acute care status with negative workup for acute PA as above. She was also treated for probable pneumonia and COPD exacerbation with patient now O2 dependent, including with ambulation. Arrangements are being made to obtain a portable oxygen unit with patient already otherwise having oxygen therapy at home. The cost of her medications were extensively discussed during this hospitalization with the patient essentially noncompliant with her inhalers and also having difficulty paying for her Bumex. She will use her nebulizer unit rather than inhalers at this time with Bumex to be changed to Lasix, which she did tolerate well during this hospitalization. Close follow-up by regular provider as above and as per discharge instructions. - Patient Instructions Diet: Fluid Restriction Diet, Other: 1500-calorie, ADA, heart healthy, diverticulosis Fluid Restriction: 2000 mL Activity: As Tolerated Driving: Do Not Drive Showering/Bathing: May Shower Notify Provider of: Fever, Increased Pain, Nausea and/or Vomiting Other/Special Instructions: 1. Followup with your regular provider in 7 days as directed for reevaluation and recommended CBC, comprehensive metabolic panel , d-dimer, BNP, CK, CK-MB, troponin I, magnesium level, chest x-ray, and EKG. Bring these discharge instructions with you to that visit. 2. Discuss possible scheduling of dobutamine Cardiolite stress test in this facility with your regular provider at follow-up. Additional consideration may be given to possible repeat echocardiogram depending on these test results. 3. Stop all tobacco exposure TRENT as directed with counselling, information, etc. given. 4. Recommend repeat TIBC panel and ferritin level in 4 weeks. 5. Weight loss in moderation with strict compliance with diet, medications, etc. as discussed. 6. Strict compliance with continuous O2 therapy at 2 L/m by nasal cannula as discussed. 7. Immediately after this visit verify that your cellular telephone 's voicemail has been activated and is empty. Also verify that your home telephone's answering machine is operating properly and has space to receive messages. Note that it is sometimes necessary for us to be able to contact you at a later date to discuss your medical care. 8. Please remember that we are ALWAYS here for you and want to answer any questions you may have. Feel free to call the hospital any time and we call you back TRENT. 9. High-protein Glucerna supplements twice a day as snacks. 10. You must remain in isolation and quarantine until this facility notify you of your recent COVID-19 results - Discharge Plan *PRESCRIPTION DRUG MONITORING PROGRAM REVIEWED*: Not Applicable Prescriptions/Med Rec: Dextromethorphan/guaiFENesin [Mucinex DM ER 600-30 MG] 1 tab PO Q12HR #20 tab.er Spironolactone [Aldactone] 12.5 mg PO Q12HR #60 tablet Amoxicillin/Potassium Clav [Augmentin 875-125 Tablet] 1 each PO BIDMEALS #14 tablet Furosemide [Lasix] 40 mg PO BID #30 tab Potassium Chloride [Klor-Con M20] 20 meq PO BID #20 tab.er Home Medications: Home Meds Albuterol/Ipratropium [DuoNeb 3.0-0.5 MG/3 ML] 3 ml NEB QID 02/21/17 [History] Latanoprost [Xalatan 0.005% Ophth Soln] 1 drop EYEBOTH BEDTIME 02/21/17 [History ] atorvaSTATin Calcium [Atorvastatin Calcium] 40 mg PO BEDTIME 02/21/17 [History] Acetaminophen [Tylenol] 650 mg PO Q4H PRN tablet 03/01/18 [Rx] Albuterol/Ipratropium [DuoNeb 3.0-0.5 MG/3 ML] 3 ml NEB Q4HRRT PRN neb [Rx] Loperamide [Imodium AD] 2 mg PO Q6H PRN #0 tablet 03/01/18 [Rx] Calcium Carbonate [Tums Extra Strength] 1,500 mg PO BEDTIME PRN 11/20/18 [ History] Ferrous Sulfate 325 mg PO DAILY 11/20/18 [History] Aspirin [Lo-Dose Aspirin EC] 81 mg PO DAILY 06/26/19 [History] Brinzolamide [Azopt 1% Ophth Susp] 1 drop EYEBOTH BID 06/26/19 [History] Insulin Glarg,Human.Rec.Analog [Lantus Solostar] 14 units SUBCUT DAILY 06/26/19 [History] Insulin Glulisine [Apidra Solostar] 10 - 15 unit SUBCUT TID 06/26/19 [History] Losartan Potassium 50 mg PO DAILY 06/26/19 [History] Nitroglycerin 1 tab SL ASDIRECTED PRN 06/26/19 [History] carvediloL [Carvedilol] 25 mg PO BID 06/26/19 [History] Acetaminophen [Tylenol] 650 mg PO Q4H PRN tablet 07/01/19 [Rx] Albuterol/Ipratropium [DuoNeb 3.0-0.5 MG/3 ML] 3 ml NEB Q4HRRT PRN neb [Rx] Albuterol/Ipratropium [DuoNeb 3.0-0.5 MG/3 ML] 3 ml NEB QID neb 07/01/19 [Rx] Amoxicillin/Potassium Clav [Augmentin 875-125 Tablet] 1 each PO BIDMEALS #14 tablet 07/01/19 [Rx] Calcium Carbonate [Tums Extra Strength] 1,500 mg PO BEDTIME tab.chew 07/01/19 [ Rx] Dextromethorphan/guaiFENesin [Mucinex DM ER 600-30 MG] 1 tab PO Q12HR #20 tab.er 07/01/19 [Rx] Furosemide [Lasix] 40 mg PO BID #30 tab 07/01/19 [Rx] Potassium Chloride [Klor-Con M20] 20 meq PO BID #20 tab.er 07/01/19 [Rx] Spironolactone [Aldactone] 12.5 mg PO Q12HR #60 tablet 07/01/19 [Rx] Oxygen Therapy Mode: Nasal Cannula Oxygen Flow Rate (L/min): 2 Maintain SpO2% greater than: 90 Patient Handouts: Levofloxacin injection, Chronic Obstructive Pulmonary Disease , Ceftriaxone injection, Heart Failure, Community-Acquired Pneumonia, Adult Forms: ED Department Discharge Referrals: Velia Alfredo, FORKLIFT OPERATOR [Primary Care Provider] - - Discharge Summary/Plan Comment DC Time >30 min.: Yes (Coordination of care ) Discharge Summary/Plan Comment: As above. Extensive precautions were given to the patient, who is in agreement with the treatment plan. See Patient Instructions for further treatment and plan. - General Info Date of Service: 07/01/19 Admission Dx/Problem (Free Text: 1. CHF 2. COPD 3. Pneumonia 4. IDDM Functional Status: Reports: Pain Controlled, Tolerating Diet, Ambulating, New Symptoms, Incentive Spirometry Numeric/FACES Score: 0 - Review of Systems General: Reports: No Symptoms. Denies: Fever, Weakness, Fatigue, Malaise, Chills, Night Sweats, Appetite HEENT: Reports: No Symptoms. Denies: Ear Pain, Eye Pain, Glasses, Headaches, Post Nasal Drip, Sinus Congestion, Sore Throat, Visual Changes Pulmonary: Reports: No Symptoms. Denies: Shortness of Breath, Pleuritic Chest Pain, Cough, Sputum, Hemoptysis, Wheezing Cardiovascular: Reports: No Symptoms. Denies: Chest Pain, Palpitations, Dyspnea on Exertion, Orthopnea, PND, Edema, Lightheadedness Gastrointestinal: Reports: No Symptoms, Other (Bowel movement earlier today). Denies: Abdominal Pain, Constipation, Decreased Appetite, Diarrhea, Difficulty Swallowing, Flatus, Hematochezia, Melena, Nausea, Vomiting Genitourinary: Reports: No Symptoms. Denies: Dysuria, Frequency, Burning, Pain , Urgency, Incontinence, Hematuria, Retention, Flank Pain Musculoskeletal: Reports: No Symptoms. Denies: Neck Pain, Shoulder Pain, Arm Pain, Hand Pain, Back Pain, Leg Pain Skin: Reports: No Symptoms. Denies: Diaphoresis, Rash Neurological: Reports: No Symptoms. Denies: Numbness, Paresthesia, Tingling, Weakness Psychiatric: Reports: No Symptoms. Denies: Confusion, Anxiety, Agitation, Hallucinations, Homicidal Ideation - Patient Data Vitals - Most Recent: Last Vital Signs Temp 36.2 C 07/01/19 08:00 Pulse 76 07/01/19 08:46 Resp 22 H 07/01/19 08:00 BP 146/79 H 07/01/19 08:46 Pulse Ox 99 07/01/19 08:00 Vital Signs - 24 hr 06/30/19 06/30/19 06/30/19 11:45 16:00 20:53 Temperature [ 36.6 C Temporal] Pulse, 72 Peripheral Pulse, 72 69 Peripheral [ Right Pulse Oximetry] Respiratory 20 Rate Blood Pressure 150/85 H Blood Pressure 134/78 [Left Upper Arm ] Blood Pressure [Right Upper Arm] O2 Sat by Pulse 99 Oximetry 06/30/19 07/01/19 07/01/19 21:00 08:00 08:46 Temperature [ 36.8 C 36.2 C Temporal] Pulse, 76 Peripheral Pulse, 72 76 Peripheral [ Right Pulse Oximetry] Respiratory 18 22 H Rate Blood Pressure 146/79 H Blood Pressure [Left Upper Arm ] Blood Pressure 150/85 H 146/79 H [Right Upper Arm] O2 Sat by Pulse 99 99 Oximetry O2 sat of only 87% on room air with ambulation with improvement to 92% with activity on 2 L/m by nasal cannula. Weight - Most Recent: 80.83 kg I&O - Last 24 hours: Intake & Output 06/30/19 07/01/19 07/01/19 22:59 06:59 14:59 Intake Total 978 250 Balance 978 250 Imaging Impressions - Last 24 hrs: senior game advisor shows normal sinus rhythm in the 70s to 80s with occasional multiform PVCs. Chest x-ray, PA lateral, left conducted on 07/01/19 indicates some pleural effusions with somewhat persistent possible right-sided atelectasis versus pneumonia Lab Results - Last 24 hrs: Laboratory Results - last 24 hr 06/30/19 06/30/19 06/30/19 Range/Units 11:51 16:51 20:49 WBC (4.0-10.2) K/uL RBC (3.77-5.09) M/uL Hgb (11.7-15.5) g/dL Hct (34.0-46.0) % MCV (84.0-98.0) fL MCH (28.2-33.3) pg MCHC (31.7-36.0) g/dL RDW (11.2-14.1) % Plt Count (150-350) K/uL Neut % (Auto) (45.0-80.0) % Lymph % (Auto) (10.0-50.0) % [place] % (Auto) (2.0-14.0) % Eos % (Auto) (0.0-5.0) % Baso % (Auto) (0.0-2.0) % Neut # (Auto) (1.40-7.00) K/uL Lymph # (Auto) (0.50-3.50) K/uL [place] # (Auto) (0.00-1.00) K/uL Eos # (Auto) (0.00-0.50) K/uL Baso # (Auto) (0.00-0.20) K/uL D-Dimer, Quantitative (0-400) ng/mL Sodium (136-145) mmol/L Potassium (3.5-5.1) mmol/L Chloride (98-107) mmol/L Carbon Dioxide (21.0-32.0) mmol/L BUN (7-18) mg/dL Creatinine (0.51-1.17) mg/dL Est Cr Clr Drug Dosing mL/min Estimated GFR (MDRD) mL/min Glucose (74-106) mg/dL POC Glucose 215 H 138 H 175 H (65-110) mg/dl Calcium (8.5-10.1) mg/dL Magnesium (1.8-2.4) mg/dL Total Bilirubin (0.2-1.0) mg/dL AST (15-37) U/L ALT (12-78) U/L Alkaline Phosphatase (46-116) IU/L Creatine Kinase (26-308) U/L Creatine Kinase Index (0.0-2.5) % CK-MB (CK-2) (0.00-3.60) ng/mL Troponin I (0.000-0.056) ng/mL NT-Pro-B Natriuret Pep (0-125) pg/mL Total Protein (6.4-8.2) g/dL Albumin (3.4-5.0) g/dL 07/01/19 07/01/19 07/01/19 Range/Units 07:20 07:20 07:20 WBC 8.7 (4.0-10.2) K/uL RBC 3.40 L (3.77-5.09) M/uL Hgb 10.0 L (11.7-15.5) g/dL Hct 32.8 L (34.0-46.0) % MCV 96.5 (84.0-98.0) fL MCH 29.4 (28.2-33.3) pg MCHC 30.5 L (31.7-36.0) g/dL RDW 12.9 (11.2-14.1) % Plt Count 178 (150-350) K/uL Neut % (Auto) 59.9 (45.0-80.0) % Lymph % (Auto) 25.7 (10.0-50.0) % [place] % (Auto) 9.1 (2.0-14.0) % Eos % (Auto) 4.8 (0.0-5.0) % Baso % (Auto) 0.5 (0.0-2.0) % Neut # (Auto) 5.23 (1.40-7.00) K/uL Lymph # (Auto) 2.24 (0.50-3.50) K/uL [place] # (Auto) 0.79 (0.00-1.00) K/uL Eos # (Auto) 0.42 (0.00-0.50) K/uL Baso # (Auto) 0.04 (0.00-0.20) K/uL D-Dimer, Quantitative 637 H (0-400) ng/mL Sodium 142 (136-145) mmol/L Potassium 5.3 H (3.5-5.1) mmol/L Chloride 105 (98-107) mmol/L Carbon Dioxide 31.8 (21.0-32.0) mmol/L BUN 42 H (7-18) mg/dL Creatinine 1.94 H (0.51-1.17) mg/dL Est Cr Clr Drug Dosing 17.76 mL/min Estimated GFR (MDRD) 25 mL/min Glucose 163 H (74-106) mg/dL POC Glucose (65-110) mg/dl Calcium 8.9 (8.5-10.1) mg/dL Magnesium 2.0 (1.8-2.4) mg/dL Total Bilirubin 0.4 (0.2-1.0) mg/dL AST 15 (15-37) U/L ALT 15 (12-78) U/L Alkaline Phosphatase 78 (46-116) IU/L Creatine Kinase 52 (26-308) U/L Creatine Kinase Index 1.3 (0.0-2.5) % CK-MB (CK-2) 0.70 (0.00-3.60) ng/mL Troponin I 0.014 (0.000-0.056) ng/mL NT-Pro-B Natriuret Pep 6359 H (0-125) pg/mL Total Protein 6.6 (6.4-8.2) g/dL Albumin 2.5 L (3.4-5.0) g/dL 07/01/19 Range/Units 08:26 WBC (4.0-10.2) K/uL RBC (3.77-5.09) M/uL Hgb (11.7-15.5) g/dL Hct (34.0-46.0) % MCV (84.0-98.0) fL MCH (28.2-33.3) pg MCHC (31.7-36.0) g/dL RDW (11.2-14.1) % Plt Count (150-350) K/uL Neut % (Auto) (45.0-80.0) % Lymph % (Auto) (10.0-50.0) % [place] % (Auto) (2.0-14.0) % Eos % (Auto) (0.0-5.0) % Baso % (Auto) (0.0-2.0) % Neut # (Auto) (1.40-7.00) K/uL Lymph # (Auto) (0.50-3.50) K/uL [place] # (Auto) (0.00-1.00) K/uL Eos # (Auto) (0.00-0.50) K/uL Baso # (Auto) (0.00-0.20) K/uL D-Dimer, Quantitative (0-400) ng/mL Sodium (136-145) mmol/L Potassium (3.5-5.1) mmol/L Chloride (98-107) mmol/L Carbon Dioxide (21.0-32.0) mmol/L BUN (7-18) mg/dL Creatinine (0.51-1.17) mg/dL Est Cr Clr Drug Dosing mL/min Estimated GFR (MDRD) mL/min Glucose (74-106) mg/dL POC Glucose 155 H (65-110) mg/dl Calcium (8.5-10.1) mg/dL Magnesium (1.8-2.4) mg/dL Total Bilirubin (0.2-1.0) mg/dL AST (15-37) U/L ALT (12-78) U/L Alkaline Phosphatase (46-116) IU/L Creatine Kinase (26-308) U/L Creatine Kinase Index (0.0-2.5) % CK-MB (CK-2) (0.00-3.60) ng/mL Troponin I (0.000-0.056) ng/mL NT-Pro-B Natriuret Pep (0-125) pg/mL Total Protein (6.4-8.2) g/dL Albumin (3.4-5.0) g/dL Laboratory Tests 06/26/19 06/26/19 06/26/19 Range/Units 10:25 10:25 10:25 WBC 13.1 H (4.0-10.2) K/uL RBC 3.57 L (3.77-5.09) M/uL Hgb 10.5 L D (11.7-15.5) g/dL Hct 34.1 (34.0-46.0) % MCV 95.5 (84.0-98.0) fL MCH 29.4 (28.2-33.3) pg MCHC 30.8 L (31.7-36.0) g/dL RDW 13.2 (11.2-14.1) % Plt Count 153 (150-350) K/uL Neut % (Auto) 86.2 H (45.0-80.0) % Lymph % (Auto) 8.1 L (10.0-50.0) % [place] % (Auto) 5.4 (2.0-14.0) % Eos % (Auto) 0.1 (0.0-5.0) % Baso % (Auto) 0.2 (0.0-2.0) % Neut # (Auto) 11.34 H (1.40-7.00) K/uL Lymph # (Auto) 1.06 (0.50-3.50) K/uL [place] # (Auto) 0.71 (0.00-1.00) K/uL Eos # (Auto) 0.01 (0.00-0.50) K/uL Baso # (Auto) 0.02 (0.00-0.20) K/uL PT 11.9 (9.5-12.0) SEC INR 1.2 APTT 25.8 (24.5-32.8) SEC D-Dimer, Quantitative 419 H (0-400) ng/mL Sodium (136-145) mmol/L Potassium (3.5-5.1) mmol/L Chloride (98-107) mmol/L Carbon Dioxide (21.0-32.0) mmol/L BUN (7-18) mg/dL Creatinine (0.51-1.17) mg/dL Est Cr Clr Drug Dosing Estimated GFR (MDRD) mL/min Glucose (74-106) mg/dL POC Glucose (65-110) mg/dl Hemoglobin A1c (4.3-5.7) % Lactic Acid (0.4-2.0) mmol/L Calcium (8.5-10.1) mg/dL Magnesium (1.8-2.4) mg/dL Total Bilirubin (0.2-1.0) mg/dL AST (15-37) U/L ALT (12-78) U/L Alkaline Phosphatase (46-116) IU/L Creatine Kinase (26-308) U/L Creatine Kinase Index (0.0-2.5) % CK-MB (CK-2) (0.00-3.60) ng/mL Troponin I (0.000-0.056) ng/mL NT-Pro-B Natriuret Pep (0-125) pg/mL Total Protein (6.4-8.2) g/dL Albumin (3.4-5.0) g/dL Triglycerides (30-150) mg/dL Cholesterol (100-200) mg/dL LDL Cholesterol, Calc (0-100) mg/dL HDL Cholesterol (40-60) mg/dL TSH, Ultra Sensitive (0.358-3.740) mIU/mL 06/26/19 06/26/19 06/26/19 Range/Units 10:25 10:25 14:43 WBC (4.0-10.2) K/uL RBC (3.77-5.09) M/uL Hgb (11.7-15.5) g/dL Hct (34.0-46.0) % MCV (84.0-98.0) fL MCH (28.2-33.3) pg MCHC (31.7-36.0) g/dL RDW (11.2-14.1) % Plt Count (150-350) K/uL Neut % (Auto) (45.0-80.0) % Lymph % (Auto) (10.0-50.0) % [place] % (Auto) (2.0-14.0) % Eos % (Auto) (0.0-5.0) % Baso % (Auto) (0.0-2.0) % Neut # (Auto) (1.40-7.00) K/uL Lymph # (Auto) (0.50-3.50) K/uL [place] # (Auto) (0.00-1.00) K/uL Eos # (Auto) (0.00-0.50) K/uL Baso # (Auto) (0.00-0.20) K/uL PT (9.5-12.0) SEC INR APTT (24.5-32.8) SEC D-Dimer, Quantitative (0-400) ng/mL Sodium 143 (136-145) mmol/L Potassium 3.5 (3.5-5.1) mmol/L Chloride 106 (98-107) mmol/L Carbon Dioxide 26.1 (21.0-32.0) mmol/L BUN 39 H (7-18) mg/dL Creatinine 1.42 H (0.51-1.17) mg/dL Est Cr Clr Drug Dosing TNP Estimated GFR (MDRD) 36 mL/min Glucose 231 H (74-106) mg/dL POC Glucose (65-110) mg/dl Hemoglobin A1c (4.3-5.7) % Lactic Acid 1.3 (0.4-2.0) mmol/L Calcium 8.3 L (8.5-10.1) mg/dL Magnesium 1.8 (1.8-2.4) mg/dL Total Bilirubin 1.2 H (0.2-1.0) mg/dL AST 19 (15-37) U/L ALT 18 (12-78) U/L Alkaline Phosphatase 75 (46-116) IU/L Creatine Kinase 86 (26-308) U/L Creatine Kinase Index 0.8 (0.0-2.5) % CK-MB (CK-2) 0.70 (0.00-3.60) ng/mL Troponin I 0.013 0.011 (0.000-0.056) ng/mL NT-Pro-B Natriuret Pep 37170 H (0-125) pg/mL Total Protein 6.8 (6.4-8.2) g/dL Albumin 2.7 L (3.4-5.0) g/dL Triglycerides (30-150) mg/dL Cholesterol (100-200) mg/dL LDL Cholesterol, Calc (0-100) mg/dL HDL Cholesterol (40-60) mg/dL TSH, Ultra Sensitive 0.478 (0.358-3.740) mIU/mL 06/26/19 06/26/19 06/26/19 Range/Units 14:43 17:08 20:49 WBC (4.0-10.2) K/uL RBC (3.77-5.09) M/uL Hgb (11.7-15.5) g/dL Hct (34.0-46.0) % MCV (84.0-98.0) fL MCH (28.2-33.3) pg MCHC (31.7-36.0) g/dL RDW (11.2-14.1) % Plt Count (150-350) K/uL Neut % (Auto) (45.0-80.0) % Lymph % (Auto) (10.0-50.0) % [place] % (Auto) (2.0-14.0) % Eos % (Auto) (0.0-5.0) % Baso % (Auto) (0.0-2.0) % Neut # (Auto) (1.40-7.00) K/uL Lymph # (Auto) (0.50-3.50) K/uL [place] # (Auto) (0.00-1.00) K/uL Eos # (Auto) (0.00-0.50) K/uL Baso # (Auto) (0.00-0.20) K/uL PT (9.5-12.0) SEC INR APTT (24.5-32.8) SEC D-Dimer, Quantitative (0-400) ng/mL Sodium (136-145) mmol/L Potassium (3.5-5.1) mmol/L Chloride (98-107) mmol/L Carbon Dioxide (21.0-32.0) mmol/L BUN (7-18) mg/dL Creatinine (0.51-1.17) mg/dL Est Cr Clr Drug Dosing Estimated GFR (MDRD) mL/min Glucose (74-106) mg/dL POC Glucose 157 H (65-110) mg/dl Hemoglobin A1c (4.3-5.7) % Lactic Acid (0.4-2.0) mmol/L Calcium (8.5-10.1) mg/dL Magnesium (1.8-2.4) mg/dL Total Bilirubin (0.2-1.0) mg/dL AST (15-37) U/L ALT (12-78) U/L Alkaline Phosphatase (46-116) IU/L Creatine Kinase 88 (26-308) U/L Creatine Kinase Index 0.8 (0.0-2.5) % CK-MB (CK-2) 0.70 (0.00-3.60) ng/mL Troponin I 0.017 (0.000-0.056) ng/mL NT-Pro-B Natriuret Pep (0-125) pg/mL Total Protein (6.4-8.2) g/dL Albumin (3.4-5.0) g/dL Triglycerides (30-150) mg/dL Cholesterol (100-200) mg/dL LDL Cholesterol, Calc (0-100) mg/dL HDL Cholesterol (40-60) mg/dL TSH, Ultra Sensitive (0.358-3.740) mIU/mL 06/26/19 06/26/19 06/27/19 Range/Units 20:49 21:26 07:40 WBC 9.0 (4.0-10.2) K/uL RBC 3.01 L (3.77-5.09) M/uL Hgb 8.9 L D (11.7-15.5) g/dL Hct 29.4 L (34.0-46.0) % MCV 97.7 (84.0-98.0) fL MCH 29.6 (28.2-33.3) pg MCHC 30.3 L (31.7-36.0) g/dL RDW 13.1 (11.2-14.1) % Plt Count 141 L (150-350) K/uL Neut % (Auto) 65.2 (45.0-80.0) % Lymph % (Auto) 24.2 (10.0-50.0) % [place] % (Auto) 8.0 (2.0-14.0) % Eos % (Auto) 2.3 (0.0-5.0) % Baso % (Auto) 0.3 (0.0-2.0) % Neut # (Auto) 5.85 (1.40-7.00) K/uL Lymph # (Auto) 2.17 (0.50-3.50) K/uL [place] # (Auto) 0.72 (0.00-1.00) K/uL Eos # (Auto) 0.21 (0.00-0.50) K/uL Baso # (Auto) 0.03 (0.00-0.20) K/uL PT (9.5-12.0) SEC INR APTT (24.5-32.8) SEC D-Dimer, Quantitative (0-400) ng/mL Sodium (136-145) mmol/L Potassium (3.5-5.1) mmol/L Chloride (98-107) mmol/L Carbon Dioxide (21.0-32.0) mmol/L BUN (7-18) mg/dL Creatinine (0.51-1.17) mg/dL Est Cr Clr Drug Dosing Estimated GFR (MDRD) mL/min Glucose (74-106) mg/dL POC Glucose 124 H (65-110) mg/dl Hemoglobin A1c (4.3-5.7) % Lactic Acid (0.4-2.0) mmol/L Calcium (8.5-10.1) mg/dL Magnesium (1.8-2.4) mg/dL Total Bilirubin (0.2-1.0) mg/dL AST (15-37) U/L ALT (12-78) U/L Alkaline Phosphatase (46-116) IU/L Creatine Kinase 104 (26-308) U/L Creatine Kinase Index 0.9 (0.0-2.5) % CK-MB (CK-2) 0.90 (0.00-3.60) ng/mL Troponin I (0.000-0.056) ng/mL NT-Pro-B Natriuret Pep (0-125) pg/mL Total Protein (6.4-8.2) g/dL Albumin (3.4-5.0) g/dL Triglycerides (30-150) mg/dL Cholesterol (100-200) mg/dL LDL Cholesterol, Calc (0-100) mg/dL HDL Cholesterol (40-60) mg/dL TSH, Ultra Sensitive (0.358-3.740) mIU/mL 06/27/19 06/27/19 06/27/19 Range/Units 07:40 07:40 07:43 WBC (4.0-10.2) K/uL RBC (3.77-5.09) M/uL Hgb (11.7-15.5) g/dL Hct (34.0-46.0) % MCV (84.0-98.0) fL MCH (28.2-33.3) pg MCHC (31.7-36.0) g/dL RDW (11.2-14.1) % Plt Count (150-350) K/uL Neut % (Auto) (45.0-80.0) % Lymph % (Auto) (10.0-50.0) % [place] % (Auto) (2.0-14.0) % Eos % (Auto) (0.0-5.0) % Baso % (Auto) (0.0-2.0) % Neut # (Auto) (1.40-7.00) K/uL Lymph # (Auto) (0.50-3.50) K/uL [place] # (Auto) (0.00-1.00) K/uL Eos # (Auto) (0.00-0.50) K/uL Baso # (Auto) (0.00-0.20) K/uL PT (9.5-12.0) SEC INR APTT (24.5-32.8) SEC D-Dimer, Quantitative (0-400) ng/mL Sodium 145 (136-145) mmol/L Potassium 3.8 (3.5-5.1) mmol/L Chloride 109 H (98-107) mmol/L Carbon Dioxide 28.2 (21.0-32.0) mmol/L BUN 43 H (7-18) mg/dL Creatinine 1.79 H (0.51-1.17) mg/dL Est Cr Clr Drug Dosing 19.23 Estimated GFR (MDRD) 27 mL/min Glucose 140 H (74-106) mg/dL POC Glucose 152 H (65-110) mg/dl Hemoglobin A1c 7.2 H (4.3-5.7) % Lactic Acid (0.4-2.0) mmol/L Calcium 7.8 L (8.5-10.1) mg/dL Magnesium (1.8-2.4) mg/dL Total Bilirubin 0.6 (0.2-1.0) mg/dL AST 14 L (15-37) U/L ALT 16 (12-78) U/L Alkaline Phosphatase 53 (46-116) IU/L Creatine Kinase 99 (26-308) U/L Creatine Kinase Index 1.1 (0.0-2.5) % CK-MB (CK-2) 1.10 (0.00-3.60) ng/mL Troponin I 0.005 (0.000-0.056) ng/mL NT-Pro-B Natriuret Pep 98580 H (0-125) pg/mL Total Protein 5.8 L (6.4-8.2) g/dL Albumin 2.1 L (3.4-5.0) g/dL Triglycerides 81 (30-150) mg/dL Cholesterol 105 (100-200) mg/dL LDL Cholesterol, Calc 42 (0-100) mg/dL HDL Cholesterol 47 (40-60) mg/dL TSH, Ultra Sensitive (0.358-3.740) mIU/mL 06/27/19 06/27/19 06/27/19 Range/Units 11:43 16:40 20:23 WBC (4.0-10.2) K/uL RBC (3.77-5.09) M/uL Hgb (11.7-15.5) g/dL Hct (34.0-46.0) % MCV (84.0-98.0) fL MCH (28.2-33.3) pg MCHC (31.7-36.0) g/dL RDW (11.2-14.1) % Plt Count (150-350) K/uL Neut % (Auto) (45.0-80.0) % Lymph % (Auto) (10.0-50.0) % [place] % (Auto) (2.0-14.0) % Eos % (Auto) (0.0-5.0) % Baso % (Auto) (0.0-2.0) % Neut # (Auto) (1.40-7.00) K/uL Lymph # (Auto) (0.50-3.50) K/uL [place] # (Auto) (0.00-1.00) K/uL Eos # (Auto) (0.00-0.50) K/uL Baso # (Auto) (0.00-0.20) K/uL PT (9.5-12.0) SEC INR APTT (24.5-32.8) SEC D-Dimer, Quantitative (0-400) ng/mL Sodium (136-145) mmol/L Potassium (3.5-5.1) mmol/L Chloride (98-107) mmol/L Carbon Dioxide (21.0-32.0) mmol/L BUN (7-18) mg/dL Creatinine (0.51-1.17) mg/dL Est Cr Clr Drug Dosing Estimated GFR (MDRD) mL/min Glucose (74-106) mg/dL POC Glucose 117 H 194 H 149 H (65-110) mg/dl Hemoglobin A1c (4.3-5.7) % Lactic Acid (0.4-2.0) mmol/L Calcium (8.5-10.1) mg/dL Magnesium (1.8-2.4) mg/dL Total Bilirubin (0.2-1.0) mg/dL AST (15-37) U/L ALT (12-78) U/L Alkaline Phosphatase (46-116) IU/L Creatine Kinase (26-308) U/L Creatine Kinase Index (0.0-2.5) % CK-MB (CK-2) (0.00-3.60) ng/mL Troponin I (0.000-0.056) ng/mL NT-Pro-B Natriuret Pep (0-125) pg/mL Total Protein (6.4-8.2) g/dL Albumin (3.4-5.0) g/dL Triglycerides (30-150) mg/dL Cholesterol (100-200) mg/dL LDL Cholesterol, Calc (0-100) mg/dL HDL Cholesterol (40-60) mg/dL TSH, Ultra Sensitive (0.358-3.740) mIU/mL 06/28/19 06/28/19 06/28/19 Range/Units 03:21 07:37 07:37 WBC 9.7 (4.0-10.2) K/uL RBC 3.15 L (3.77-5.09) M/uL Hgb 9.3 L (11.7-15.5) g/dL Hct 31.0 L (34.0-46.0) % MCV 98.4 H (84.0-98.0) fL MCH 29.5 (28.2-33.3) pg MCHC 30.0 L (31.7-36.0) g/dL RDW 13.0 (11.2-14.1) % Plt Count 167 (150-350) K/uL Neut % (Auto) 63.6 (45.0-80.0) % Lymph % (Auto) 23.6 (10.0-50.0) % [place] % (Auto) 8.5 (2.0-14.0) % Eos % (Auto) 4.1 (0.0-5.0) % Baso % (Auto) 0.2 (0.0-2.0) % Neut # (Auto) 6.18 (1.40-7.00) K/uL Lymph # (Auto) 2.29 (0.50-3.50) K/uL [place] # (Auto) 0.83 (0.00-1.00) K/uL Eos # (Auto) 0.40 (0.00-0.50) K/uL Baso # (Auto) 0.02 (0.00-0.20) K/uL PT (9.5-12.0) SEC INR APTT 26.4 (24.5-32.8) SEC D-Dimer, Quantitative (0-400) ng/mL Sodium (136-145) mmol/L Potassium (3.5-5.1) mmol/L Chloride (98-107) mmol/L Carbon Dioxide (21.0-32.0) mmol/L BUN (7-18) mg/dL Creatinine (0.51-1.17) mg/dL Est Cr Clr Drug Dosing Estimated GFR (MDRD) mL/min Glucose (74-106) mg/dL POC Glucose 142 H (65-110) mg/dl Hemoglobin A1c (4.3-5.7) % Lactic Acid (0.4-2.0) mmol/L Calcium (8.5-10.1) mg/dL Magnesium (1.8-2.4) mg/dL Total Bilirubin (0.2-1.0) mg/dL AST (15-37) U/L ALT (12-78) U/L Alkaline Phosphatase (46-116) IU/L Creatine Kinase (26-308) U/L Creatine Kinase Index (0.0-2.5) % CK-MB (CK-2) (0.00-3.60) ng/mL Troponin I (0.000-0.056) ng/mL NT-Pro-B Natriuret Pep (0-125) pg/mL Total Protein (6.4-8.2) g/dL Albumin (3.4-5.0) g/dL Triglycerides (30-150) mg/dL Cholesterol (100-200) mg/dL LDL Cholesterol, Calc (0-100) mg/dL HDL Cholesterol (40-60) mg/dL TSH, Ultra Sensitive (0.358-3.740) mIU/mL 06/28/19 06/28/19 06/28/19 Range/Units 07:37 07:37 07:37 WBC (4.0-10.2) K/uL RBC (3.77-5.09) M/uL Hgb (11.7-15.5) g/dL Hct (34.0-46.0) % MCV (84.0-98.0) fL MCH (28.2-33.3) pg MCHC (31.7-36.0) g/dL RDW (11.2-14.1) % Plt Count (150-350) K/uL Neut % (Auto) (45.0-80.0) % Lymph % (Auto) (10.0-50.0) % [place] % (Auto) (2.0-14.0) % Eos % (Auto) (0.0-5.0) % Baso % (Auto) (0.0-2.0) % Neut # (Auto) (1.40-7.00) K/uL Lymph # (Auto) (0.50-3.50) K/uL [place] # (Auto) (0.00-1.00) K/uL Eos # (Auto) (0.00-0.50) K/uL Baso # (Auto) (0.00-0.20) K/uL PT 11.3 (9.5-12.0) SEC INR 1.1 APTT (24.5-32.8) SEC D-Dimer, Quantitative 665 H (0-400) ng/mL Sodium 143 (136-145) mmol/L Potassium 4.4 (3.5-5.1) mmol/L Chloride 109 H (98-107) mmol/L Carbon Dioxide 26.9 (21.0-32.0) mmol/L BUN 44 H (7-18) mg/dL Creatinine 1.86 H (0.51-1.17) mg/dL Est Cr Clr Drug Dosing 18.51 Estimated GFR (MDRD) 26 mL/min Glucose 148 H (74-106) mg/dL POC Glucose (65-110) mg/dl Hemoglobin A1c (4.3-5.7) % Lactic Acid (0.4-2.0) mmol/L Calcium 8.3 L (8.5-10.1) mg/dL Magnesium (1.8-2.4) mg/dL Total Bilirubin (0.2-1.0) mg/dL AST (15-37) U/L ALT (12-78) U/L Alkaline Phosphatase (46-116) IU/L Creatine Kinase 111 (26-308) U/L Creatine Kinase Index 0.8 (0.0-2.5) % CK-MB (CK-2) 0.90 (0.00-3.60) ng/mL Troponin I 0.012 (0.000-0.056) ng/mL NT-Pro-B Natriuret Pep 5109 H (0-125) pg/mL Total Protein (6.4-8.2) g/dL Albumin (3.4-5.0) g/dL Triglycerides (30-150) mg/dL Cholesterol (100-200) mg/dL LDL Cholesterol, Calc (0-100) mg/dL HDL Cholesterol (40-60) mg/dL TSH, Ultra Sensitive (0.358-3.740) mIU/mL 06/28/19 06/28/19 06/28/19 Range/Units 07:57 11:21 16:57 WBC (4.0-10.2) K/uL RBC (3.77-5.09) M/uL Hgb (11.7-15.5) g/dL Hct (34.0-46.0) % MCV (84.0-98.0) fL MCH (28.2-33.3) pg MCHC (31.7-36.0) g/dL RDW (11.2-14.1) % Plt Count (150-350) K/uL Neut % (Auto) (45.0-80.0) % Lymph % (Auto) (10.0-50.0) % [place] % (Auto) (2.0-14.0) % Eos % (Auto) (0.0-5.0) % Baso % (Auto) (0.0-2.0) % Neut # (Auto) (1.40-7.00) K/uL Lymph # (Auto) (0.50-3.50) K/uL [place] # (Auto) (0.00-1.00) K/uL Eos # (Auto) (0.00-0.50) K/uL Baso # (Auto) (0.00-0.20) K/uL PT (9.5-12.0) SEC INR APTT (24.5-32.8) SEC D-Dimer, Quantitative (0-400) ng/mL Sodium (136-145) mmol/L Potassium (3.5-5.1) mmol/L Chloride (98-107) mmol/L Carbon Dioxide (21.0-32.0) mmol/L BUN (7-18) mg/dL Creatinine (0.51-1.17) mg/dL Est Cr Clr Drug Dosing Estimated GFR (MDRD) mL/min Glucose (74-106) mg/dL POC Glucose 147 H 206 H 182 H (65-110) mg/dl Hemoglobin A1c (4.3-5.7) % Lactic Acid (0.4-2.0) mmol/L Calcium (8.5-10.1) mg/dL Magnesium (1.8-2.4) mg/dL Total Bilirubin (0.2-1.0) mg/dL AST (15-37) U/L ALT (12-78) U/L Alkaline Phosphatase (46-116) IU/L Creatine Kinase (26-308) U/L Creatine Kinase Index (0.0-2.5) % CK-MB (CK-2) (0.00-3.60) ng/mL Troponin I (0.000-0.056) ng/mL NT-Pro-B Natriuret Pep (0-125) pg/mL Total Protein (6.4-8.2) g/dL Albumin (3.4-5.0) g/dL Triglycerides (30-150) mg/dL Cholesterol (100-200) mg/dL LDL Cholesterol, Calc (0-100) mg/dL HDL Cholesterol (40-60) mg/dL TSH, Ultra Sensitive (0.358-3.740) mIU/mL 06/28/19 06/29/19 06/29/19 Range/Units 20:01 08:03 09:55 WBC (4.0-10.2) K/uL RBC (3.77-5.09) M/uL Hgb (11.7-15.5) g/dL Hct (34.0-46.0) % MCV (84.0-98.0) fL MCH (28.2-33.3) pg MCHC (31.7-36.0) g/dL RDW (11.2-14.1) % Plt Count (150-350) K/uL Neut % (Auto) (45.0-80.0) % Lymph % (Auto) (10.0-50.0) % [place] % (Auto) (2.0-14.0) % Eos % (Auto) (0.0-5.0) % Baso % (Auto) (0.0-2.0) % Neut # (Auto) (1.40-7.00) K/uL Lymph # (Auto) (0.50-3.50) K/uL [place] # (Auto) (0.00-1.00) K/uL Eos # (Auto) (0.00-0.50) K/uL Baso # (Auto) (0.00-0.20) K/uL PT (9.5-12.0) SEC INR APTT (24.5-32.8) SEC D-Dimer, Quantitative (0-400) ng/mL Sodium 142 (136-145) mmol/L Potassium 4.5 (3.5-5.1) mmol/L Chloride 108 H (98-107) mmol/L Carbon Dioxide 28.9 (21.0-32.0) mmol/L BUN 43 H (7-18) mg/dL Creatinine 1.79 H (0.51-1.17) mg/dL Est Cr Clr Drug Dosing 19.23 Estimated GFR (MDRD) 27 mL/min Glucose 257 H (74-106) mg/dL POC Glucose 111 H 122 H (65-110) mg/dl Hemoglobin A1c (4.3-5.7) % Lactic Acid (0.4-2.0) mmol/L Calcium 8.2 L (8.5-10.1) mg/dL Magnesium (1.8-2.4) mg/dL Total Bilirubin (0.2-1.0) mg/dL AST (15-37) U/L ALT (12-78) U/L Alkaline Phosphatase (46-116) IU/L Creatine Kinase (26-308) U/L Creatine Kinase Index (0.0-2.5) % CK-MB (CK-2) (0.00-3.60) ng/mL Troponin I (0.000-0.056) ng/mL NT-Pro-B Natriuret Pep (0-125) pg/mL Total Protein (6.4-8.2) g/dL Albumin (3.4-5.0) g/dL Triglycerides (30-150) mg/dL Cholesterol (100-200) mg/dL LDL Cholesterol, Calc (0-100) mg/dL HDL Cholesterol (40-60) mg/dL TSH, Ultra Sensitive (0.358-3.740) mIU/mL 06/29/19 06/29/19 06/29/19 Range/Units 11:31 16:35 20:01 WBC (4.0-10.2) K/uL RBC (3.77-5.09) M/uL Hgb (11.7-15.5) g/dL Hct (34.0-46.0) % MCV (84.0-98.0) fL MCH (28.2-33.3) pg MCHC (31.7-36.0) g/dL RDW (11.2-14.1) % Plt Count (150-350) K/uL Neut % (Auto) (45.0-80.0) % Lymph % (Auto) (10.0-50.0) % [place] % (Auto) (2.0-14.0) % Eos % (Auto) (0.0-5.0) % Baso % (Auto) (0.0-2.0) % Neut # (Auto) (1.40-7.00) K/uL Lymph # (Auto) (0.50-3.50) K/uL [place] # (Auto) (0.00-1.00) K/uL Eos # (Auto) (0.00-0.50) K/uL Baso # (Auto) (0.00-0.20) K/uL PT (9.5-12.0) SEC INR APTT (24.5-32.8) SEC D-Dimer, Quantitative (0-400) ng/mL Sodium (136-145) mmol/L Potassium (3.5-5.1) mmol/L Chloride (98-107) mmol/L Carbon Dioxide (21.0-32.0) mmol/L BUN (7-18) mg/dL Creatinine (0.51-1.17) mg/dL Est Cr Clr Drug Dosing Estimated GFR (MDRD) mL/min Glucose (74-106) mg/dL POC Glucose 237 H 144 H 167 H (65-110) mg/dl Hemoglobin A1c (4.3-5.7) % Lactic Acid (0.4-2.0) mmol/L Calcium (8.5-10.1) mg/dL Magnesium (1.8-2.4) mg/dL Total Bilirubin (0.2-1.0) mg/dL AST (15-37) U/L ALT (12-78) U/L Alkaline Phosphatase (46-116) IU/L Creatine Kinase (26-308) U/L Creatine Kinase Index (0.0-2.5) % CK-MB (CK-2) (0.00-3.60) ng/mL Troponin I (0.000-0.056) ng/mL NT-Pro-B Natriuret Pep (0-125) pg/mL Total Protein (6.4-8.2) g/dL Albumin (3.4-5.0) g/dL Triglycerides (30-150) mg/dL Cholesterol (100-200) mg/dL LDL Cholesterol, Calc (0-100) mg/dL HDL Cholesterol (40-60) mg/dL TSH, Ultra Sensitive (0.358-3.740) mIU/mL 06/30/19 06/30/19 06/30/19 Range/Units 09:02 11:51 16:51 WBC (4.0-10.2) K/uL RBC (3.77-5.09) M/uL Hgb (11.7-15.5) g/dL Hct (34.0-46.0) % MCV (84.0-98.0) fL MCH (28.2-33.3) pg MCHC (31.7-36.0) g/dL RDW (11.2-14.1) % Plt Count (150-350) K/uL Neut % (Auto) (45.0-80.0) % Lymph % (Auto) (10.0-50.0) % [place] % (Auto) (2.0-14.0) % Eos % (Auto) (0.0-5.0) % Baso % (Auto) (0.0-2.0) % Neut # (Auto) (1.40-7.00) K/uL Lymph # (Auto) (0.50-3.50) K/uL [place] # (Auto) (0.00-1.00) K/uL Eos # (Auto) (0.00-0.50) K/uL Baso # (Auto) (0.00-0.20) K/uL PT (9.5-12.0) SEC INR APTT (24.5-32.8) SEC D-Dimer, Quantitative (0-400) ng/mL Sodium (136-145) mmol/L Potassium (3.5-5.1) mmol/L Chloride (98-107) mmol/L Carbon Dioxide (21.0-32.0) mmol/L BUN (7-18) mg/dL Creatinine (0.51-1.17) mg/dL Est Cr Clr Drug Dosing Estimated GFR (MDRD) mL/min Glucose (74-106) mg/dL POC Glucose 137 H 215 H 138 H (65-110) mg/dl Hemoglobin A1c (4.3-5.7) % Lactic Acid (0.4-2.0) mmol/L Calcium (8.5-10.1) mg/dL Magnesium (1.8-2.4) mg/dL Total Bilirubin (0.2-1.0) mg/dL AST (15-37) U/L ALT (12-78) U/L Alkaline Phosphatase (46-116) IU/L Creatine Kinase (26-308) U/L Creatine Kinase Index (0.0-2.5) % CK-MB (CK-2) (0.00-3.60) ng/mL Troponin I (0.000-0.056) ng/mL NT-Pro-B Natriuret Pep (0-125) pg/mL Total Protein (6.4-8.2) g/dL Albumin (3.4-5.0) g/dL Triglycerides (30-150) mg/dL Cholesterol (100-200) mg/dL LDL Cholesterol, Calc (0-100) mg/dL HDL Cholesterol (40-60) mg/dL TSH, Ultra Sensitive (0.358-3.740) mIU/mL 06/30/19 07/01/19 07/01/19 Range/Units 20:49 07:20 07:20 WBC 8.7 (4.0-10.2) K/uL RBC 3.40 L (3.77-5.09) M/uL Hgb 10.0 L (11.7-15.5) g/dL Hct 32.8 L (34.0-46.0) % MCV 96.5 (84.0-98.0) fL MCH 29.4 (28.2-33.3) pg MCHC 30.5 L (31.7-36.0) g/dL RDW 12.9 (11.2-14.1) % Plt Count 178 (150-350) K/uL Neut % (Auto) 59.9 (45.0-80.0) % Lymph % (Auto) 25.7 (10.0-50.0) % [place] % (Auto) 9.1 (2.0-14.0) % Eos % (Auto) 4.8 (0.0-5.0) % Baso % (Auto) 0.5 (0.0-2.0) % Neut # (Auto) 5.23 (1.40-7.00) K/uL Lymph # (Auto) 2.24 (0.50-3.50) K/uL [place] # (Auto) 0.79 (0.00-1.00) K/uL Eos # (Auto) 0.42 (0.00-0.50) K/uL Baso # (Auto) 0.04 (0.00-0.20) K/uL PT (9.5-12.0) SEC INR APTT (24.5-32.8) SEC D-Dimer, Quantitative 637 H (0-400) ng/mL Sodium (136-145) mmol/L Potassium (3.5-5.1) mmol/L Chloride (98-107) mmol/L Carbon Dioxide (21.0-32.0) mmol/L BUN (7-18) mg/dL Creatinine (0.51-1.17) mg/dL Est Cr Clr Drug Dosing Estimated GFR (MDRD) mL/min Glucose (74-106) mg/dL POC Glucose 175 H (65-110) mg/dl Hemoglobin A1c (4.3-5.7) % Lactic Acid (0.4-2.0) mmol/L Calcium (8.5-10.1) mg/dL Magnesium (1.8-2.4) mg/dL Total Bilirubin (0.2-1.0) mg/dL AST (15-37) U/L ALT (12-78) U/L Alkaline Phosphatase (46-116) IU/L Creatine Kinase (26-308) U/L Creatine Kinase Index (0.0-2.5) % CK-MB (CK-2) (0.00-3.60) ng/mL Troponin I (0.000-0.056) ng/mL NT-Pro-B Natriuret Pep (0-125) pg/mL Total Protein (6.4-8.2) g/dL Albumin (3.4-5.0) g/dL Triglycerides (30-150) mg/dL Cholesterol (100-200) mg/dL LDL Cholesterol, Calc (0-100) mg/dL HDL Cholesterol (40-60) mg/dL TSH, Ultra Sensitive (0.358-3.740) mIU/mL 07/01/19 07/01/19 Range/Units 07:20 08:26 WBC (4.0-10.2) K/uL RBC (3.77-5.09) M/uL Hgb (11.7-15.5) g/dL Hct (34.0-46.0) % MCV (84.0-98.0) fL MCH (28.2-33.3) pg MCHC (31.7-36.0) g/dL RDW (11.2-14.1) % Plt Count (150-350) K/uL Neut % (Auto) (45.0-80.0) % Lymph % (Auto) (10.0-50.0) % [place] % (Auto) (2.0-14.0) % Eos % (Auto) (0.0-5.0) % Baso % (Auto) (0.0-2.0) % Neut # (Auto) (1.40-7.00) K/uL Lymph # (Auto) (0.50-3.50) K/uL [place] # (Auto) (0.00-1.00) K/uL Eos # (Auto) (0.00-0.50) K/uL Baso # (Auto) (0.00-0.20) K/uL PT (9.5-12.0) SEC INR APTT (24.5-32.8) SEC D-Dimer, Quantitative (0-400) ng/mL Sodium 142 (136-145) mmol/L Potassium 5.3 H (3.5-5.1) mmol/L Chloride 105 (98-107) mmol/L Carbon Dioxide 31.8 (21.0-32.0) mmol/L BUN 42 H (7-18) mg/dL Creatinine 1.94 H (0.51-1.17) mg/dL Est Cr Clr Drug Dosing 17.76 Estimated GFR (MDRD) 25 mL/min Glucose 163 H (74-106) mg/dL POC Glucose 155 H (65-110) mg/dl Hemoglobin A1c (4.3-5.7) % Lactic Acid (0.4-2.0) mmol/L Calcium 8.9 (8.5-10.1) mg/dL Magnesium 2.0 (1.8-2.4) mg/dL Total Bilirubin 0.4 (0.2-1.0) mg/dL AST 15 (15-37) U/L ALT 15 (12-78) U/L Alkaline Phosphatase 78 (46-116) IU/L Creatine Kinase 52 (26-308) U/L Creatine Kinase Index 1.3 (0.0-2.5) % CK-MB (CK-2) 0.70 (0.00-3.60) ng/mL Troponin I 0.014 (0.000-0.056) ng/mL NT-Pro-B Natriuret Pep 6359 H (0-125) pg/mL Total Protein 6.6 (6.4-8.2) g/dL Albumin 2.5 L (3.4-5.0) g/dL Triglycerides (30-150) mg/dL Cholesterol (100-200) mg/dL LDL Cholesterol, Calc (0-100) mg/dL HDL Cholesterol (40-60) mg/dL TSH, Ultra Sensitive (0.358-3.740) mIU/mL [facility]E Results - Last 24 hrs: Microbiology 06/26/19 10:40 Aerobic Blood Culture - Final Blood - Venous - Lab Draw NO GROWTH AFTER 5 DAYS Anaerobic Blood Culture - Final NO GROWTH AFTER 5 DAYS 06/26/19 10:25 Aerobic Blood Culture - Final Blood - Venous NO GROWTH AFTER 5 DAYS Anaerobic Blood Culture - Final NO GROWTH AFTER 5 DAYS Microbiology 06/26/19 10:40 Aerobic Blood Culture - Final Blood - Venous - Lab Draw NO GROWTH AFTER 5 DAYS Anaerobic Blood Culture - Final NO GROWTH AFTER 5 DAYS 06/26/19 10:25 Aerobic Blood Culture - Final Blood - Venous NO GROWTH AFTER 5 DAYS Anaerobic Blood Culture - Final NO GROWTH AFTER 5 DAYS Med Orders - Current: Current Medications Acetaminophen (Tylenol) 650 mg PO Q4H PRN PRN Reason: Pain/Fever Albuterol (Proventil Neb Soln) 2.5 mg NEB Q2H PRN PRN Reason: Dyspnea Albuterol/Ipratropium (Duoneb 3.0-0.5 Mg/3 Ml) 3 ml NEB Q4HRRT PRN PRN Reason: Dyspnea Albuterol/Ipratropium (Duoneb 3.0-0.5 Mg/3 Ml) 3 ml NEB QID [facility] Last Admin: 07/01/19 08:33 Dose: 3 ml Aspirin (Halfprin) 81 mg PO DAILY [facility] Last Admin: 07/01/19 08:34 Dose: 81 mg Atorvastatin Calcium (Lipitor) 40 mg PO BEDTIME [facility] Last Admin: 06/30/19 20:57 Dose: 40 mg Budesonide (Pulmicort) 0.5 mg NEB BIDRT [facility] Last Admin: 07/01/19 08:33 Dose: 0.5 mg Calcium Carbonate/Glycine (Tums Extra Strength) 1,500 mg PO BEDTIME [facility] Last Admin: 06/30/19 20:52 Dose: 1,500 mg Carvedilol (Coreg) 25 mg PO Q12HR [facility] Last Admin: 07/01/19 08:46 Dose: 25 mg Clotrimazole (Lotrimin Af 1% Crm) 1 gm TOP Q12HR [facility] Last Admin: 07/01/19 08:41 Dose: 1 applic Dorzolamide HCl (Trusopt 2% Ophth Soln) 0 ml EYEBOTH Q12HR [facility] Last Admin: 07/01/19 08:42 Dose: 1 drop Famotidine (Pepcid) 20 mg PO DAILY@1200 [facility] Last Admin: 06/30/19 12:05 Dose: 20 mg Ferrous Sulfate (Ferrous Sulfate) 325 mg PO BID@0800,1200 [facility] Last Admin: 07/01/19 08:34 Dose: 325 mg Furosemide (Lasix) 60 mg IVPUSH Q12HR [facility] Last Admin: 07/01/19 08:32 Dose: 60 mg Guaifenesin/Dextromethorphan (Mucinex Dm Er 600-30 Mg) 1 tab PO Q12HR [facility] Last Admin: 07/01/19 08:33 Dose: 1 tab Ceftriaxone Sodium 1 gm/ (Sodium Chloride) 100 mls @ 200 mls/hr IV Q24H [facility] Last Admin: 06/30/19 12:20 Dose: 200 mls/hr Levofloxacin/Dextrose 500 mg/ (Premix) 100 mls @ 100 mls/hr IV Q24H [facility] Last Admin: 06/30/19 16:55 Dose: 100 mls/hr Insulin Glargine (Lantus) 6 unit SUBCUT Q12HR [facility] Last Admin: 07/01/19 08:39 Dose: 6 units Insulin Human Lispro (Humalog) 0 unit SUBCUT QIDACANDBED [facility]; Protocol Last Admin: 07/01/19 08:37 Dose: 2 unit Lactobacillus Rhamnosus (Culturelle) 2 cap PO Q12HR [facility] Last Admin: 07/01/19 08:33 Dose: 2 cap Latanoprost (Xalatan 0.005% Ophth Soln) 0 ml EYEBOTH BEDTIME [facility] Last Admin: 06/30/19 21:01 Dose: 1 drop Loperamide HCl (Imodium Ad) 2 mg PO ASDIRECTED PRN PRN Reason: Diarrhea Last Admin: 06/29/19 19:46 Dose: 2 mg Losartan Potassium (Cozaar) 50 mg PO DAILY [facility] Last Admin: 07/01/19 08:46 Dose: 50 mg Ondansetron HCl (Zofran) 4 mg IVPUSH Q6H PRN PRN Reason: Nausea/Vomiting Last Admin: 06/26/19 17:55 Dose: 4 mg Potassium Chloride (Klor-Con M20) 20 meq PO TID@0800,1200,2000 [facility] Last Admin: 07/01/19 08:33 Dose: 20 meq Sodium Chloride (Saline Flush) 10 ml FLUSH ASDIRECTED PRN PRN Reason: Keep Vein Open Last Admin: 06/30/19 16:55 Dose: 10 ml Sodium Chloride (Saline Flush) 10 ml FLUSH Q12HR [facility] Last Admin: 07/01/19 08:35 Dose: 10 ml Spironolactone (Aldactone) 12.5 mg PO Q12HR [facility] Last Admin: 07/01/19 08:34 Dose: 12.5 mg Temazepam (Restoril) 15 mg PO BEDTIME PRN PRN Reason: Insomnia Discontinued Medications Albuterol/Ipratropium (Duoneb 3.0-0.5 Mg/3 Ml) 3 ml NEB Q6HRRT [facility] Last Admin: 06/27/19 07:52 Dose: 3 ml Carvedilol (Coreg) 25 mg PO BID [facility] Last Admin: 06/27/19 07:47 Dose: 25 mg Carvedilol (Coreg) 25 mg PO Q12HR [facility] Last Admin: 06/30/19 09:14 Dose: 25 mg Carvedilol (Coreg) 50 mg PO Q12HR [facility] Clotrimazole (Lotrimin Af 1% Crm) 1 gm TOP BID [facility] Last Admin: 06/27/19 07:52 Dose: 1 dose Dorzolamide HCl (Trusopt 2% Ophth Soln) 0 ml EYEBOTH BID [facility] Last Admin: 06/27/19 07:52 Dose: 1 drop Enoxaparin Sodium (Lovenox) 40 mg SUBCUT Q24H [facility] Last Admin: 06/26/19 13:00 Dose: 40 mg Ferrous Sulfate (Ferrous Sulfate) 325 mg PO DAILY [facility] Last Admin: 06/27/19 07:47 Dose: 325 mg Ferrous Sulfate (Ferrous Sulfate) 325 mg PO BID [facility] Fluconazole (Diflucan) 100 mg PO ONETIME ONE Stop: 06/26/19 11:59 Last Admin: 06/26/19 12:54 Dose: 100 mg Furosemide (Lasix) 40 mg IVPUSH Q8H [facility] Last Admin: 06/27/19 11:51 Dose: 40 mg Guaifenesin/Dextromethorphan (Mucinex Dm Er 600-30 Mg) 1 tab PO BID [facility] Last Admin: 06/27/19 07:46 Dose: 1 tab Ceftriaxone Sodium 1 gm/ (Sodium Chloride) 100 mls @ 200 mls/hr IV Q12H [facility] Last Admin: 06/27/19 00:30 Dose: 200 mls/hr Levofloxacin/Dextrose 500 mg/ (Premix) 100 mls @ 100 mls/hr IV Q24H [facility] Last Admin: 06/27/19 13:44 Dose: Not Given Insulin Glargine (Lantus) 6 unit SUBCUT BID [facility] Lactobacillus Rhamnosus (Culturelle) 2 cap PO BID [facility] Last Admin: 06/27/19 07:46 Dose: 2 cap Loperamide HCl (Imodium Ad) 4 mg PO ONETIME ONE Stop: 06/28/19 09:59 Last Admin: 06/28/19 10:24 Dose: 4 mg Potassium Chloride (Klor-Con M20) 20 meq PO TID [facility] Last Admin: 06/27/19 11:50 Dose: 20 meq Sodium Chloride (Saline Flush) 10 ml FLUSH Q12H [facility] Last Admin: 06/27/19 11:51 Dose: 10 ml - Exam Quality Assessment: Reports: Supplemental Oxygen, DVT Prophylaxis. Denies: Central Line/PICC, Urine Catheter, Skin Breakdown General: Reports: Alert, Oriented, Cooperative, No Acute Distress HEENT: Reports: Pupils Equal, Pupils Reactive, EOMI, Mucous Membr. Moist/[place]. Denies: Scleral Icterus Neck: Reports: Supple, Trachea Midline, No JVD, No Thyromegaly, Carotid Bruit ( Stable mild bilateral carotid bruits versus transmitted heart sounds bilaterally ). Denies: Lymphadenopathy Lungs: Reports: Clear to Auscultation, Normal Respiratory Effort. Denies: Rales , Rhonchi, Rub, Wheezing Cardiovascular: Reports: Regular Rate, Regular Rhythm, Murmurs (Stable mild 1/6 BATSHEVA of the aortic and mitral valves). Denies: Gallops, Rubs GI/Abdominal Exam: Normal Bowel Sounds, Soft, Non-Tender, No Organomegaly, No Distention, No Abnormal Bruit, No Mass, Other (Obese). No: Guarding (Female) Exam: Deferred Rectal (Female) Exam: Deferred Back Exam: Reports: Full Range of Motion, Other (Kyphoscoliosismild). Denies: CVA Tenderness (L), CVA Tenderness (R), Muscle Spasm, Paraspinal Tenderness, Vertebral Tenderness Extremities: Normal Inspection, Normal Range of Motion, Non-Tender, No Pedal Edema, Normal Capillary Refill. No: Charlee's Sign Skin: Reports: Warm, Dry, Intact. Denies: Ecchymosis Neurological: Reports: No New Focal Deficit Psy/Mental Status: Reports: Alert, Normal Affect, Normal Mood. Denies: Agitated , Hallucinations, Withdrawal Symptoms EKG INTERPRETATION EKG Date: 07/01/19 Time: 08:35 Rhythm: NSR Rate (Beats/Min): 75 [place]: Normal (Left cardiac axis) P-Wave: Present QRS: Wide (0.10 seconds representing repolarization changes) ST-T: Normal QT: Normal ID/PQ Interval: 0.17 seconds with extreme poor R-wave progression in the anterior leads Comparison: No Change (Since last EKG on 06/28/19) EKG Interpretation Comments: No acute ischemic changes
[2019-07-01] MEDS: Famotidine 20 MG Tab PO SCH (11:47)
[2019-07-01] MEDS: cefTRIAXone 1 GM in Sodium Chloride 0.9% 100 ML IV SCH (11:50)
== END 2019-07-01 14:35 | disposition home or self-care (01) | DRG 291 ==
LOC: LL.ED 10:00 → UNDOADMIN 11:35 → LL.MS 11:35
PROVIDERS: ADMIT Family Medicine; ATTEND Family Medicine
PROC: 8E0ZXY6 Isolation (ICD-10-PCS; principal; 2019-07-01)
DX: I13.0 Hypertensive heart and chronic kidney disease with heart failure and stage 1 through stage 4 chronic kidney disease, or unspecified chronic kidney disease (principal); J18.9 Pneumonia, unspecified organism; I50.43 Acute on chronic combined systolic (congestive) and diastolic (congestive) heart failure; R79.89 Other specified abnormal findings of blood chemistry; I50.9 Heart failure, unspecified; D50.9 Iron deficiency anemia, unspecified; I25.118 Atherosclerotic heart disease of native coronary artery with other forms of angina pectoris; J43.1 Panlobular emphysema; E11.22 Type 2 diabetes mellitus with diabetic chronic kidney disease; I25.10 Atherosclerotic heart disease of native coronary artery without angina pectoris; E78.5 Hyperlipidemia, unspecified; E11.21 Type 2 diabetes mellitus with diabetic nephropathy; I49.1 Atrial premature depolarization; M19.90 Unspecified osteoarthritis, unspecified site; K21.9 Gastro-esophageal reflux disease without esophagitis; Z71.6 Tobacco abuse counseling; E88.09 Other disorders of plasma-protein metabolism, not elsewhere classified; H40.9 Unspecified glaucoma; H91.13 Presbycusis, bilateral; H54.7 Unspecified visual loss; I42.8 Other cardiomyopathies; Z98.42 Cataract extraction status, left eye; Z98.41 Cataract extraction status, right eye; Z90.49 Acquired absence of other specified parts of digestive tract; Z90.710 Acquired absence of both cervix and uterus; Z90.79 Acquired absence of other genital organ(s); Z90.722 Acquired absence of ovaries, bilateral; E83.42 Hypomagnesemia; Z85.41 Personal history of malignant neoplasm of cervix uteri; Z87.891 Personal history of nicotine dependence; Z88.8 Allergy status to other drugs, medicaments and biological substances; N18.3 Chronic kidney disease, stage 3 (moderate); M89.49 Other hypertrophic osteoarthropathy, multiple sites; E83.51 Hypocalcemia; E78.00 Pure hypercholesterolemia, unspecified; Z96.652 Presence of left artificial knee joint; Z88.5 Allergy status to narcotic agent; Z79.899 Other long term (current) drug therapy; Z79.82 Long term (current) use of aspirin; Z79.4 Long term (current) use of insulin; Z98.49 Cataract extraction status, unspecified eye; Z99.81 Dependence on supplemental oxygen
CPT/HCPCS: 36415; 71045; 71046; 80048; 80053; 80061; 82272; 82550; 82553; 82962; 83036; 83605; 83735; 83880; 84443; 84484; 85025; 85379; 85610; 85730; 87040; 87081; 87430; 87804; 93005; 93010; 94640; 99222; 99285-25; A9270-GY; J0696; J1650; J1815-GY; J1940; J1956; J2405; J7050; J7620-GY; U0002

== ENCOUNTER 2019-07-14 10:10 | Emergency (ER) | payer MEDICARE, OTHER ==
--- NOTE | 2019-07-14 10:19 | EDM.PDOC ---
ED HPI GENERAL MEDICAL PROBLEM - General Chief Complaint: General Stated Complaint: critical labs, N/V Time Seen by Provider: 07/14/19 10:10 Source of Information: Reports: Patient, Old Records ([facility] chart/EMR), Other ([facility] EMR reviewed on 11/20/18.) History Limitations: Reports: No Limitations - History of Present Illness INITIAL COMMENTS - FREE TEXT/NARRATIVE: The patient was brought to the emergency room by wheelchair from our clinic after brief evaluation of the patient by her regular provider, GIFTY Naidu at the [facility]. Note that the patient made this appointment as a follow-up after recent hospitalization in this facility from 06/25-07/01/19 for treatment of CHF, pneumonia, and COPD exacerbation. On about 07/09 the patient began experiencing some nonspecific diffuse arthralgias, which she currently rates at 9/10 with additional new onset of nausea and recurrent emesis since yesterday morning. She denies any known exposure to infection, food poisoning, etc.. Her Accu-Cheks have been averaging in the 140s to 180s with sliding scale in effect. No recent history of abdominal pain, heartburn, hematemesis, diarrhea , melena, gross hematochezia, or any food intolerance, including fatty foods, etc. with normal bowel movement earlier today. She denies any gross hematuria, colic, or other UTI symptoms, however her urine output has been somewhat decreased during the last several days despite her current Lasix therapy. The patient denies any chest pain/pressure, heart flutter, dizziness, orthostasis, orthopnea, diaphoresis, paresthesias, recent decreased exercise tolerance, or any other anginal-type symptoms. The patient also denies any recent fever, cough , wheezing, dyspnea, etc., although she has had some nasal drainage and other URI symptoms during the last few days. Onset: Gradual Onset Date: 07/10/19 Duration: Getting Worse Location: Reports: Generalized. Denies: Head, Face, Neck, Chest, Abdomen, Back , Radiates to Quality: Reports: Ache Severity: Severe Improves with: Reports: None Worsens with: Reports: None Context: Reports: Other (As above). Denies: Sick Contact, Trauma Associated Symptoms: Reports: No Other Symptoms. 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: Other (see below) (None) Abdominal Pain Score (Numeric/FACES): 7 - Related Data Allergies Allergy/AdvReac Type Severity Reaction Status Date / Time morphine Allergy Agitation Verified 07/14/19 11:29 Home Meds: Home Meds Albuterol/Ipratropium [DuoNeb 3.0-0.5 MG/3 ML] 3 ml NEB QID 02/21/17 [History] Latanoprost [Xalatan 0.005% Ophth Soln] 1 drop EYEBOTH BEDTIME 02/21/17 [History ] atorvaSTATin Calcium [Atorvastatin Calcium] 40 mg PO BEDTIME 02/21/17 [History] Acetaminophen [Tylenol] 650 mg PO Q4H PRN tablet 03/01/18 [Rx] Albuterol/Ipratropium [DuoNeb 3.0-0.5 MG/3 ML] 3 ml NEB Q4HRRT PRN neb [Rx] Loperamide [Imodium AD] 2 mg PO Q6H PRN #0 tablet 03/01/18 [Rx] Calcium Carbonate [Tums Extra Strength] 1,500 mg PO BEDTIME PRN 11/20/18 [ History] Ferrous Sulfate 325 mg PO DAILY 11/20/18 [History] Aspirin [Lo-Dose Aspirin EC] 81 mg PO DAILY 06/26/19 [History] Brinzolamide [Azopt 1% Ophth Susp] 1 drop EYEBOTH BID 06/26/19 [History] Insulin Glarg,Human.Rec.Analog [Lantus Solostar] 14 units SUBCUT DAILY 06/26/19 [History] Insulin Glulisine [Apidra Solostar] 10 - 15 unit SUBCUT TID 06/26/19 [History] Losartan Potassium 50 mg PO DAILY 06/26/19 [History] Nitroglycerin 1 tab SL ASDIRECTED PRN 06/26/19 [History] carvediloL [Carvedilol] 25 mg PO BID 06/26/19 [History] Acetaminophen [Tylenol] 650 mg PO Q4H PRN tablet 07/01/19 [Rx] Albuterol/Ipratropium [DuoNeb 3.0-0.5 MG/3 ML] 3 ml NEB Q4HRRT PRN neb [Rx] Albuterol/Ipratropium [DuoNeb 3.0-0.5 MG/3 ML] 3 ml NEB QID neb 07/01/19 [Rx] Amoxicillin/Potassium Clav [Augmentin 875-125 Tablet] 1 each PO BIDMEALS #14 tablet 07/01/19 [Rx] Calcium Carbonate [Tums Extra Strength] 1,500 mg PO BEDTIME tab.chew 07/01/19 [ Rx] Dextromethorphan/guaiFENesin [Mucinex DM ER 600-30 MG] 1 tab PO Q12HR #20 tab.er 07/01/19 [Rx] Furosemide [Lasix] 40 mg PO BID #30 tab 07/01/19 [Rx] Potassium Chloride [Klor-Con M20] 20 meq PO BID #20 tab.er 07/01/19 [Rx] Spironolactone [Aldactone] 12.5 mg PO Q12HR #60 tablet 07/01/19 [Rx] Past Medical History HEENT History: Reports: Cataract, Glaucoma, Hard of Hearing, Impaired Vision, Other (See Below). Denies: Allergic Rhinitis, Otitis Media, Retinal Detachment Other HEENT History: Patient wears glasses; 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. No history of diabetic retinopathy. Cardiovascular History: Reports: Arrhythmia, CAD, Cardiomyopathy, Heart Failure , Heart Murmur, High Cholesterol, Hypertension, Pulmonary Hypertension, Syncope , Other (See Below). Denies: Afib, Aneurysm, Blood Clots/VTE/DVT, NV, PTCA, PVD Other Cardiovascular History: Nonischemic Cardiomyopathy with systolic/ diastolic dysfunction, cardiomegaly, severe biatrial enlargement, and recurrent CHF with ejection fraction of 2530 percent and evidence of pulmonary hypertension and moderate mitral valve insufficiency by previous echocardiogram on 01/08/18, although improved ejection fraction of 45% at time of last echocardiogram on 09/05/18. Syncopal episode of unknown etiology in 2016. History of PVCs diagnosed in January 2017 and PACs in June 2019. Chronic D- dimer elevation on 02/21/17 with negative workup as below. Respiratory History: Reports: Bronchitis, Recurrent, COPD, Intubation, Previous , Pneumonia, Recurrent, Other (See Below). Denies: Asthma, Intubation, Difficult, PE, TB Other Respiratory History: O2 dependent COPD Gastrointestinal History: Reports: Cholelithiasis, Chronic Diarrhea, Gastritis, GERD, Hiatal Hernia. Denies: Celiac Disease, Chronic Constipation, Colon Polyp , GI Bleed, Hepatitis, Helicobacter Pylori, Inflammatory Bowel Disease, Irritable Bowel Syndrome, Jaundice, Pancreatitis, PUD Genitourinary History: Reports: Acute Renal Failure, Chronic Renal Insuffiency, Diabetic Nephropathy, Urinary Incontinence, UTI, Recurrent. 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 Denies: PID, Polycystic Ovaries, Spontaneous : 4 Para: 4 LMP (Approximate): Other (See Below) Other MOTOR VEHICLE EXAMINER History: Surgical menopause secondary to dysfunctional uterine bleeding. Full term without complications during pregnancies or deliveries. Musculoskeletal History: Reports: Arthritis, Back Pain, Chronic, Neck Pain, Chronic, Osteoarthritis, Osteoporosis. Denies: Amputation, Fracture, Gout, RA, SLE Neurological History: Reports: Headaches, Chronic, Migraines, Neuropathy, Diabetic, Neuropathy, Peripheral, Other (See Below). 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 Psychiatric History: Reports: None. Denies: Abuse, Victim of, ADD, ADHD, Addiction, Anxiety, Depression, Psych Hospitalization(s), Psychosis, PTSD, Suicide Attempt, Suicidal Ideation Endocrine/Metabolic History: Reports: Diabetes, Type II, Hypokalemia, Hypomagnesemia, IDDM, Obesity/BMI 30+, Osteopenia, Osteoporosis, Other (See Below). Denies: Diabetes, Gestational, Diabetes, Type I, Diabetes Mellitus, Type 3c, Hypothyroidism Other Endocrine/Metabolic History: Hypokalemia//hyperkalemia. Hypoalbuminemia. Hypocalcemia. Hematologic History: Reports: Anemia, Blood Transfusion(s), Iron Deficiency, Other (See Below). Denies: B12 Deficiency Other Hematologic History: Transfusion secondary to dysfunctional uterine bleeding in her 40s Immunologic History: Reports: None. Denies: AIDS, HIV, SLE Oncologic (Cancer) History: Reports: Cervix, Other (See Below). Denies: Basal Cell Carcinoma, Breast, Colon, Hodgkin's Lymphoma, Leukemia, Lymphoma, Non- Hodgkin's Lymphoma, Ovarian, Squamous Cell Carcinoma, Uterine Other Oncologic History: Incidental Cervical cancer in her 40s at time of her hysterectomy with no further treatment required Dermatologic History: Reports: Other (See Below). Denies: Eczema, Psoriasis Other Dermatologic History: Severe onychomycosis of the feet bilaterally. - Infectious Disease History Infectious Disease History: Reports: Chicken Pox, Measles, Mumps, TB. Denies: C -Difficile, Meningitis, Mononucleosis, MRSA, Novel Coronavirus, Pertussis ( Whooping Cough), Rheumatic Fever, Rubella, Scarlet Fever, Shingles, VRE - Past Surgical History Head Surgeries/Procedures: Reports: None HEENT Surgical History: Reports: Cataract Surgery, Oral Surgery, Tonsillectomy, Other (See Below). Denies: Adenoidectomy, Eye Surgery, Laser Surgery, LASIK, Myringotomy w Tube(s), Naso-Sinus Surgery, Retinal Other HEENT Surgeries/Procedures: Bilateral cataract surgery in about 2013; Tonsillectomy at age 13 Cardiovascular Surgical History: Reports: None. Denies: Varicose, Vascular Surgery Respiratory Surgical History: Reports: None. Denies: Thoracentesis GI Surgical History: Reports: Appendectomy, Cholecystectomy, Colonoscopy, Other (See Below). Denies: EGD, Hernia, Abdominal, Hernia, Inguinal, Hernia Repair/ Other, Polypectomy Other GI Surgeries/Procedures: Appendectomy in 1967; colonoscopy in about 2005 with previous evaluation 1994. Laparoscopic cholecystectomy in her 30s. Female Surgical History: Reports: Hysterectomy, Salpingo-Oophorectomy. Denies: Section, D&C, Tubal Ligation Other Female Surgeries/Procedures: Complete hysterectomy including bilateral salpingo-oophorectomy in her 30s secondary to dysfunctional uterine bleeding. Endocrine Surgical History: Reports: None. Denies: Thyroid Biopsy Neurological Surgical History: Reports: None. Denies: C-Spine, Discectomy, Laminectomy, Lumbar Spine, Sacral Spine, Spinal Fusion, Thoracic Spine, Vertebroplasty Musculoskeletal Surgical History: Reports: Arthroscopic Procedure, Carpal Tunnel , Joint Replacement, Knee Replacement, Shoulder Surgery, Other (See Below). Denies: Arthroscopic Knee, Ganglion Cyst, ORIF Other Musculoskeletal Surgeries/Procedures:: Left total knee arthroplasty in 2004; bilateral arthroscopic shoulder surgery in 2001 rather than in 1965 as per [facility] records; Left carpal tunnel release 1997. Oncologic Surgical History: Reports: None Dermatological Surgical History: Reports: None - Past Imaging History Past Imaging History: Reports: Cardiac Echo (Last echocardiogram on 08/26/18 with ejection fraction of 45% with previous echocardiogram on 05/04/17 and 01/08/18 with findings as above. Additional previous echocardiogram in June 2016 per patient with ejection fraction of 30% by patient history that time.), CAT Scan ( Negative CTA of the chest for PE on 05/04/17 and 02/21/17.), Mammogram (Last on ), Stress Testing (Negative for ischemia Lexiscan Cardiolite evaluation on 04/15/17 with ejection fraction of 31% diastolically and 46% systolically.), Ultrasound (Bilateral renal ultrasounds on 08/22/18.). Denies: ROBERT Screen, Angiography, DEXA Scan, Holter Monitor, MRA, MRI, PFT, Sleep Study, Venous Doppler Social & Family History - Family History HEENT: Reports: None. Denies: Glaucoma, Macular Degeneration, Retinal Detachment Cardiac: Reports: CAD, Cardiomyopathy, Heart Failure, High Cholesterol, Hypertension, NV, Other (See Below). Denies: Afib, AICD, Aneurysm, Arrhythmia, Blood Clots/VTE/DVT, Heart Murmur, PVD/COD, Syncope Other Cardiac Family History: Father with fatal NV at age 67; 3 brothers with hypertension; brother with hyperlipidemia; son with alcohol-induced cardiomyopathy Respiratory: Reports: None. Denies: Asthma, COPD, PE, Pneumothorax, Sleep Apnea GI: Reports: GERD, Other (See Below). Denies: Bowel Obstruction, Celiac Disease , Cholelithiasis, Colon Polyps, GI bleed, Inflammatory Bowel Disease, Irritable Bowel Syndrome, PUD Other GI Family History: GERD in brother : Reports: Diabetic Nephropathy, Dialysis, Renal Disease/Insufficiency, Other (See Below) Other Family History: Sister with diabetic nephropathy requiring dialysis OBGYN: Reports: Recurrent Spontaneous . Denies: Dysfunctional uterine bleeding, Endometriosis, Fibroids Other OBGYN Family History: Sister with recurrent SAB Musculoskeletal: Reports: None. Denies: Gout, Osteoarthritis, Osteoporosis, RA , SLE Neurological: Reports: None. Denies: Alzheimers Disease, CVA, Dementia, Migraines, MS, Neuropathy, Diabetic, Neuropathy, Peripheral, Parkinson's, Seizure, TIA Psychiatric: Reports: Anxiety, Depression, Psych Hospitalization(s), Suicide Attempt, Other (See Below). Denies: Abuse, Victim of, ADD, ADHD, PTSD Other Psychiatric Family History: Son with alcohol abuse with secondary alcoholic cardiomyopathy, CHF, anxiety, depression, and successful suicide at age 45 with previous inpatient treatment for his addiction, etc. Endocrine/Metabolic: Reports: Diabetes, type II, Other (See Below). Denies: Diabetes, Type I, Diabetes Mellitus, Type 3c, Hypothyroidism, IDDM Other Endocrine/Metabolic Family History: Sister with AODM with complications as above Hematologic: Reports: None. Denies: SLE Immunologic: Reports: None. Denies: AIDS, HIV, SLE Dermatologic: Reports: None. Denies: Eczema, Psoriasis Oncologic: Reports: Other (See Below) Other Oncologic Family History: Brothers 2 with unknown type of fatal cancer - Tobacco Use Smoking Status *Q: Former Smoker Tobacco Use Within Last Twelve Months: No Years of Tobacco use: 10 Packs/Tins Daily: 1.5 Packs/Tins Daily Comment: Stopped smoking in her 30s. Used Tobacco, but Quit: Yes Smoking Cessation Information Provided To Patient: No Second Hand Smoke Exposure: Yes Source of Second Hand Smoke Exposure: Son smokes Second Hand Smoke Education Provided: No Second Hand Smoke Education Comment: Patient's son and the patient received tobacco exposure and tobacco cessation information on multiple occasions in this facility, including at time of last hospitalization June 2019 - Caffeine Use Caffeine Use: Reports: Soda (2 sodas per day), Tea (3 cups per day). Denies: Coffee, Energy Drinks - Alcohol Use Alcohol Use History: No Days Per Week of Alcohol Use: 0 Number of Drinks Per Day: 0 Total Drinks Per Week: 0 Total Drinks Per Week Comment: No previous DWIs, problems with alcohol abuse, etc. Alcohol Use in Last Twelve Months: No - Recreational Drug Use Recreational Drug Use: No Drug Use in Last 12 Months: No Recreational Drug Type: Denies: Amphetamines (Speed), Cocaine, Heroin, Inhalants (Glues, Solvents, Aerosols), LSD (Acid), Marijuana/Hashish, Methamphetamine, Morphine, Oxycodone - Living Situation & Occupation Living situation: Reports: (2016, 4 children), with Family (2 sons and [id number]) Occupation: Retired ([employer], retired at age 69) ED ROS GENERAL - Review of Systems Review Of Systems: Comprehensive ROS is negative, except as noted in HPI. ED EXAM, GENERAL - Physical Exam Exam: See Below Exam Limited By: No Limitations General Appearance: Alert, WD/WN, No Apparent Distress Eye Exam: Bilateral Eye: EOMI, Normal Inspection (No nystagmus), PERRL Ears: Normal External Exam, Normal Canal, Hearing Grossly Normal, Normal TMs Nose: Normal Mucosa, No Blood, Clear Rhinorrhea (Mild to moderate bilaterally) Throat/Mouth: Normal Inspection, Normal Lips, Normal Teeth, Normal Gums, Normal Oropharynx, Normal Voice, No Airway Compromise. No: Dysphagia, Perioral Cyanosis Head: Atraumatic, Normocephalic. No: Facial Swelling, Facial Tenderness, Sinus Tenderness Neck: Supple, Non-Tender, Full Range of Motion, Carotid Bruit (Bilateral carotid bruitsmild). No: Lymphadenopathy (L), Lymphadenopathy (R), Thyromegaly Respiratory/Chest: No Respiratory Distress, No Accessory Muscle Use, Rales ( Mild bilateral basilar rales). No: Rhonchi, Wheezing, Pleural Rub, Retractions Cardiovascular: Normal Peripheral Pulses, Regular Rate, Rhythm, No Edema, No Gallop, No JVD, No Rub, Systolic Murmur (2/6 BATSHEVA of the mitral valve.). No: Gallop/S3, Gallop/S4, Friction Rub Peripheral Pulses: 2+: Radial (L), Radial (R), Dorsalis Pedis (L), Dorsalis Pedis (R) GI/Abdominal: Normal Bowel Sounds, Soft, Non-Tender, No Organomegaly, No Distention, No Abnormal Bruit, No Mass, Pelvis Stable, Other (Obese). No: Guarding (Female) Exam: Deferred Rectal (Female) Exam: Deferred Back Exam: Full Range of Motion, Other (Mild kyphosis and scoliosis). No: CVA Tenderness (L), CVA Tenderness (R), Muscle Spasm, Paraspinal Tenderness, Vertebral Tenderness Extremities: Normal Range of Motion, Non-Tender, No Pedal Edema, Normal Capillary Refill, Other (Moderate to severe bilateral neck and mycosis in the toenails). No: Charlee's Sign Neurological: Alert, Oriented, CN II-XII Intact, Normal Cognition, Normal Gait, Normal Reflexes (Negative Babinski's), No Motor/Sensory Deficits Psychiatric: Normal Affect, Normal Mood Skin Exam: Warm, Dry, Intact, Normal Color, No Rash. No: Diaphoretic, Ecchymosis, Petechiae, Wound/Incision Lymphatic: No Adenopathy EKG INTERPRETATION EKG Date: 07/14/19 Time: 09:39 Rhythm: NSR Rate (Beats/Min): 69 Buchanan: Normal (Left) P-Wave: Enlarged (Diffuse biphasic P wavesmild) QRS: Normal (0.09 seconds) ST-T: Other (New T wave inversions in leads 1 and aVL with otherwise nonspecific ST changes and U waves in leads V3 through V6) QT: Normal AK/PQ Interval: 0.17 seconds with extreme poor R-wave progression in the anterior leads Comparison: Change From Previous EKG (As above since 07/01/19) EKG Interpretation Comments: 1. New lateral wall cardiac ischemia 2. Left atrial enlargement Note EKG initially ordered by GIFTY Naidu at the [facility] Course - Vital Signs Last Recorded V/S: Last Vital Signs Temp 36.8 C 07/14/19 10:10 Pulse 79 07/14/19 12:15 Resp 16 07/14/19 12:15 BP 124/52 L 07/14/19 12:15 Pulse Ox 100 07/14/19 12:15 Vital Signs - 24 hr 07/14/19 07/14/19 07/14/19 10:10 10:30 10:45 Temperature [ 36.8 C Oral] Pulse, 70 70 69 Peripheral [ Pulse Oximetry] Respiratory 24 H 13 14 Rate Blood Pressure 119/86 120/47 L 97/79 [Left Upper Arm ] O2 Sat by Pulse 98 99 98 Oximetry 07/14/19 07/14/19 07/14/19 11:40 11:45 12:00 Temperature [ Oral] Pulse, 76 75 74 Peripheral [ Pulse Oximetry] Respiratory 13 19 Rate Blood Pressure 100/65 108/92 H [Left Upper Arm ] O2 Sat by Pulse 100 100 100 Oximetry 07/14/19 12:15 Temperature [ Oral] Pulse, 79 Peripheral [ Pulse Oximetry] Respiratory 16 Rate Blood Pressure 124/52 L [Left Upper Arm ] O2 Sat by Pulse 100 Oximetry - Orders/Labs/Meds Orders: Active Orders 24 hr Category Date Time Status Peripheral IV Care [RC] . DIRECTED Care 07/14/19 10:29 Active Abdomen 2V AP Flat Upright [CR] Stat Exams 07/14/19 10:51 Taken CULTURE BLOOD [BC] Stat Lab 07/14/19 09:20 Received CULTURE BLOOD [BC] Stat Lab 07/14/19 09:20 Received Sodium Chloride 0.9% [Normal Saline] 1,000 ml Med 07/14/19 10:30 Active IV ASDIRECTED Sodium Chloride 0.9% [Saline Flush] Med 07/14/19 10:29 Active 10 ml FLUSH ASDIRECTED PRN Blood Culture x2 Reflex Set [OM.PC] Urgent Oth 07/14/19 10:24 Ordered Obtain Past Medical Record [OM.PC] Routine Oth 07/14/19 10:29 Active Peripheral IV Insertion Adult [OM.PC] Routine Oth 07/14/19 10:29 Ordered Medication Orders Sodium Chloride (Normal Saline) 1,000 mls @ 150 mls/hr IV ASDIRECTED CHRISS Last Admin: 07/14/19 10:51 Dose: 150 mls/hr Sodium Chloride (Saline Flush) 10 ml FLUSH ASDIRECTED PRN PRN Reason: Keep Vein Open Last Admin: 07/14/19 11:28 Dose: 10 ml Admin: 07/14/19 10:50 Dose: 10 ml Labs: Laboratory Tests 07/14/19 07/14/19 07/14/19 Range/Units 09:20 09:20 09:20 WBC (4.0-10.2) K/uL RBC (3.77-5.09) M/uL Hgb (11.7-15.5) g/dL Hct (34.0-46.0) % MCV (84.0-98.0) fL MCH (28.2-33.3) pg MCHC (31.7-36.0) g/dL RDW (11.2-14.1) % Plt Count (150-350) K/uL Neut % (Auto) (45.0-80.0) % Lymph % (Auto) (10.0-50.0) % Meeker % (Auto) (2.0-14.0) % Eos % (Auto) (0.0-5.0) % Baso % (Auto) (0.0-2.0) % Neut # (Auto) (1.40-7.00) K/uL Lymph # (Auto) (0.50-3.50) K/uL Meeker # (Auto) (0.00-1.00) K/uL Eos # (Auto) (0.00-0.50) K/uL Baso # (Auto) (0.00-0.20) K/uL PT 10.6 (9.5-12.0) SEC INR 1.1 APTT 22.5 L (24.5-32.8) SEC Lactic Acid 1.6 (0.4-2.0) mmol/L Phosphorus 7.1 H (2.6-4.7) mg/dL Troponin I (0.000-0.056) ng/mL Amylase 96 (25-115) U/L Lipase 172 (73-393) U/L 07/14/19 07/14/19 Range/Units 09:20 11:20 WBC 13.1 H (4.0-10.2) K/uL RBC 3.84 (3.77-5.09) M/uL Hgb 11.2 L (11.7-15.5) g/dL Hct 36.5 (34.0-46.0) % MCV 95.1 (84.0-98.0) fL MCH 29.2 (28.2-33.3) pg MCHC 30.7 L (31.7-36.0) g/dL RDW 13.2 (11.2-14.1) % Plt Count 199 (150-350) K/uL Neut % (Auto) 76.6 (45.0-80.0) % Lymph % (Auto) 16.5 (10.0-50.0) % Meeker % (Auto) 5.9 (2.0-14.0) % Eos % (Auto) 0.8 (0.0-5.0) % Baso % (Auto) 0.2 (0.0-2.0) % Neut # (Auto) 10.00 H (1.40-7.00) K/uL Lymph # (Auto) 2.15 (0.50-3.50) K/uL Meeker # (Auto) 0.77 (0.00-1.00) K/uL Eos # (Auto) 0.11 (0.00-0.50) K/uL Baso # (Auto) 0.03 (0.00-0.20) K/uL PT (9.5-12.0) SEC INR APTT (24.5-32.8) SEC Lactic Acid (0.4-2.0) mmol/L Phosphorus (2.6-4.7) mg/dL Troponin I 0.008 (0.000-0.056) ng/mL Amylase (25-115) U/L Lipase (73-393) U/L Additional blood work, which was ordered by GIFTY Naidu at the [facility], with pertinent positives including WBCs of 13.1, improved hemoglobin of 11.2, progressive d-dimer of 998, potassium 6.8, BUN 82, creatinine 3.9, random glucose of 167, CK 629 with normal CK and MB of 2.20 and react index of 0.3, significantly improved BNP of 1553, and improved albumin of 3.3. Blood Cultures 2 were collected. Meds: Medications Generic Name Dose Route Start Last Admin Trade Name Freq PRN Reason Stop Dose Admin Sodium Chloride 1,000 mls @ 150 mls/hr 07/14/19 10:30 07/14/19 10:51 Normal Saline IV 150 mls/hr ASDIRECTED CHRISS Administration Sodium Chloride 10 ml 07/14/19 10:29 07/14/19 11:28 Saline Flush FLUSH 10 ml ASDIRECTED PRN Administration Keep Vein Open Discontinued Medications Generic Name Dose Route Start Last Admin Trade Name Freq PRN Reason Stop Dose Admin Furosemide 40 mg 07/14/19 10:27 07/14/19 10:49 Lasix IVPUSH 07/14/19 10:28 40 mg ONETIME ONE Administration Insulin Human Regular 10 unit 07/14/19 10:27 07/14/19 10:46 Humulin R SUBCUT 07/14/19 10:28 10 units ONETIME ONE Administration Methylprednisolone Sodium Succinate 125 mg 07/14/19 10:26 07/14/19 10:44 Solu-Medrol IVPUSH 07/14/19 10:27 125 mg ONETIME ONE Administration Ondansetron HCl 4 mg 07/14/19 10:23 07/14/19 10:28 Zofran IVPUSH 04/20/20 10:24 4 mg ONETIME ONE Administration Ondansetron HCl 4 mg 07/14/19 11:16 07/14/19 11:28 Zofran IVPUSH 07/14/19 11:17 4 mg ONETIME ONE Administration Sodium Polystyrene Sulfonate 15 gm 07/14/19 10:29 07/14/19 10:44 Kayexalate RECTAL 07/14/19 10:30 15 gm NOW ONE Administration - Radiology Interpretation Free Text/Narrative:: Heart monitor shows normal sinus rhythm with heart rate in the 70s with no ectopy or arrhythmia Chest x-ray, PA and lateral, shows moderate prominence of the proximal aortic arch with additional moderate COPD changes with probable pulmonary hypertension and/or mild centralized CHF. No pulmonary infiltrates noted. Stable moderately elevated right hemidiaphragm, moderate osteoarthritis, and moderate osteoporosis with mild kyphosis. No pneumothorax or cardiomegaly are present. Note this chest x-ray was initially ordered by GIFTY Naidu at the [facility]. Abdominal x-rays, flat and upright, shows no evidence of free air, fluid levels , ileus, or obstruction. Note moderate osteoarthritic changes and mild scoliosis ) present. Note surgical clips in right upper quadrant consistent with status post cholecystectomy. Departure - Departure Time of Disposition: 12:40 Disposition: DC/Tfer to Acute Hospital 02 Condition: Fair Clinical Impression: D-dimer, elevated, Hyperkalemia, Tobacco abuse counseling, Elevated CK, Hyperphosphatemia Acute renal failure Qualifiers: Acute renal failure type: unspecified Qualified Code(s): N17.9 - Acute kidney failure, unspecified Anemia Qualifiers: Anemia type: iron deficiency Iron deficiency anemia type: unspecified iron deficiency Qualified Code(s): D50.9 - Iron deficiency anemia, unspecified Coronary artery disease Qualifiers: Coronary Disease-Associated Artery/Lesion type: [place] artery [place] vs. 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 CHF (congestive heart failure) Qualifiers: Heart failure type: unspecified Heart failure chronicity: acute on chronic Qualified Code(s): I50.9 - Heart failure, unspecified COPD (chronic obstructive pulmonary disease) Qualifiers: COPD type: emphysema Emphysema type: panlobular Qualified Code(s): J43.1 - Panlobular emphysema Diabetic nephropathy Qualifiers: Diabetes mellitus type: type 2 Qualified Code(s): E11.21 - Type 2 diabetes mellitus with diabetic nephropathy Diabetes mellitus Qualifiers: Diabetes mellitus type: type 2 Diabetes mellitus nursing home insulin use: with ad terminal makeup operator use Diabetes mellitus complication status: with kidney complications Diabetes mellitus complication detail: with chronic kidney disease Chronic kidney disease stage: stage 3 (moderate) Qualified Code(s): E11.22 - Type 2 diabetes mellitus with diabetic chronic kidney disease Hypertension Qualifiers: Hypertension type: essential hypertension Qualified Code(s): I10 - Essential ( primary) hypertension Osteoarthritis Qualifiers: Osteoarthritis location: multiple joints Osteoarthritis type: primary Qualified Code(s): M89.49 - Other hypertrophic osteoarthropathy, multiple sites - Discharge Information *PRESCRIPTION DRUG MONITORING PROGRAM REVIEWED*: Not Applicable *COPY OF PRESCRIPTION DRUG MONITORING REPORT IN PATIENT MONSERRAT: Not Applicable Referrals: Velia Alfredo, CUSTOMER SECURITY CLERK [Primary Care Provider] - Forms: ED Department Discharge, Interfacility Transfer [facility] Sepsis Event Note - Focused Exam Vital Signs: Vital Signs Temp Pulse Resp BP Pulse Ox 07/14/19 12:15 79 16 124/52 L 100 07/14/19 12:00 74 100 07/14/19 11:45 75 19 108/92 H 100 07/14/19 11:40 76 13 100/65 100 07/14/19 10:45 69 14 97/79 98 07/14/19 10:30 70 13 120/47 L 99 07/14/19 10:10 36.8 C 70 24 H 119/86 98 Date Exam was Performed: 07/14/19 Time Exam was Performed: 12:49 - Problem List & Annotations (1) Acute renal failure SNOMED Code(s): 06328116 Code(s): N17.9 - ACUTE KIDNEY FAILURE, UNSPECIFIED Status: Acute Priority : High Current Visit: Yes Onset Date: 02/25/18 Annotation/Comment:: Acute renal failure likely secondary to recent medication adjustments, including current oral Lasix, low-dose spironolactone, losartan, and low-dose potassium supplementation. Hyperkalemia protocol was initiated, including 10 units of regular insulin IV and rectal Kayexalate as above. IV fluids were also initiated with caution secondary to her CHF as below. Known history of previous acute renal failure on 02/25/18, which did resolve with previous aggressive IV hydration with no previous history of dialysis. Telephone consultation at 11:[address] Nico Amaya, emergency room physician at [facility], who does accept the patient for possible direct admission, with no further treatment recommendations given. Ambulance transfer to that facility on telemetry with crucible packer accompaniment. Her son was notified by telephone by the ER nurse. Mild leukocytosis today likely secondary to stress reaction from acute renal failure with additional pruritus, nausea/emesis, etc. as above. Blood Cultures 2 were collected. Qualifiers: Acute renal failure type: unspecified Qualified Code(s): N17.9 - Acute kidney failure, unspecified (2) CHF (congestive heart failure) SNOMED Code(s): 99258023 Code(s): I50.9 - HEART FAILURE, UNSPECIFIED Status: Acute Priority: High Current Visit: Yes Onset Date: 02/21/17 Annotation/Comment:: No chest pain or anginal type symptoms with history of recurrent CHF with recent echocardiogram on 09/05/18 with results as above. IV Lasix given in the emergency room mainly for her renal failure and hyperkalemia. Note recent hospitalization in this facility between as above with initiation of low-dose expiratory 10 therapy at that time. Her potassium mentation was also decreased at time of hospital discharge with patient change from previous Bumex to Lasix secondary to financial issues. Note current losartan therapy. New T wave inversions in leads 1 and aVL consistent with possible lateral wall cardiac ischemia with consideration of cardiology consultation by accepting providers. The patient has been compliant with her medications, which are set up by home health. She did not take her medications this morning, however. Improved BNP since hospital discharge on 06/30 with secondary nonspecific troponin I change, which is still normal. Note significant CK elevation likely secondary to rhabdomyolysis with normal CK and CK-MB index. History of systolic cardiomyopathy with last echocardiogram on 08/26/18 with an ejection fraction of 45% at that time. Note history of pulmonary hypertension. Consider repeat echocardiogram, dobutamine Cardiolite stress test and/or heart catheterization depending on her clinical course. Chest pain protocol not initiated in the emergency room secondary to absence of chest pain, etc. Qualifiers: Heart failure type: unspecified Heart failure chronicity: acute on chronic Qualified Code(s): I50.9 - Heart failure, unspecified (3) Coronary artery disease SNOMED Code(s): 48596965 Code(s): I25.10 - ATHSCL HEART DISEASE OF [place] CORONARY ARTERY W/O ANG PCTRS Status: Chronic Priority: High Current Visit: Yes Onset Date: Annotation/Comment:: As above Qualifiers: Coronary Disease-Associated Artery/Lesion type: [place] artery [place] vs. 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 IV normal saline given with caution with additional one dose of IV Solu-Medrol as above. Close observation accepting providers. (5) D-dimer, elevated SNOMED Code(s): 571480526 Code(s): R79.89 - OTHER SPECIFIED ABNORMAL FINDINGS OF BLOOD CHEMISTRY Status: Acute Priority: High Current Visit: Yes Onset Date: 02/21/17 Annotation/Comment:: Note previous distant negative CTA of the chest 2 in the past as above. No clinical evidence of DVT or PE by today's exam. Consider venous Doppler studies by accepting providers. Repeat CTA of the chest cannot be performed secondary to her acute renal failure. (6) Hyperkalemia SNOMED Code(s): 96452244 Code(s): E87.5 - HYPERKALEMIA Status: Acute Priority: High Current Visit: Yes Onset Date: 07/01/19 Annotation/Comment:: Mild hyperkalemia today with supplementation to be decreased at discharge. Close observation by her regular provider. (7) Diabetes mellitus SNOMED Code(s): 69379638 Code(s): E11.9 - TYPE 2 DIABETES MELLITUS WITHOUT COMPLICATIONS Status: Chronic Priority: Medium Current Visit: Yes Annotation/Comment:: Finances are an issue. Home Accu-Cheks have been relatively stable as above. Glycosylated hemoglobin on 06/26 is elevated at 7.8%. Compliance with diet encouraged with current obesity. Close follow-up by regular provider after discharge from the accepting facility. Qualifiers: Diabetes mellitus type: type 2 Diabetes mellitus ad terminal makeup operator insulin use: with nursing home use Diabetes mellitus complication status: with kidney complications Diabetes mellitus complication detail: with chronic kidney disease Chronic kidney disease stage: stage 3 (moderate) Qualified Code(s): E11.22 - Type 2 diabetes mellitus with diabetic chronic kidney disease; N18.3 - Chronic kidney disease, stage 3 (moderate); Z79.4 - intermediate designer (current) use of insulin (8) Hypertension SNOMED Code(s): 19563455 Code(s): I10 - ESSENTIAL (PRIMARY) HYPERTENSION Status: Chronic Priority : Medium Current Visit: Yes Annotation/Comment:: Blood Pressures were stable in the emergency room. Continue to observe closely by her accepting provider with likely discontinuation of her spironolactone and further medication adjustment required secondary to acute renal failure as above. Continue to observe closely by her regular provider after discharge. Qualifiers: Hypertension type: essential hypertension Qualified Code(s): I10 - Essential (primary) hypertension (9) COPD (chronic obstructive pulmonary disease) SNOMED Code(s): 28017401 Code(s): J44.9 - CHRONIC OBSTRUCTIVE PULMONARY DISEASE, UNSPECIFIED Status : Chronic Priority: Medium Current Visit: Yes Annotation/Comment:: No recent fever or bronchitic type symptoms with resolution of previous pneumonia after recent hospitalization as above. Note negative COVID-19 screen during recent hospitalization in early June as above. Qualifiers: COPD type: emphysema Emphysema type: panlobular Qualified Code(s): J43.1 - Panlobular emphysema (10) Osteoarthritis SNOMED Code(s): 182735393 Code(s): M19.90 - UNSPECIFIED OSTEOARTHRITIS, UNSPECIFIED SITE Status: Chronic Priority: High Current Visit: Yes Annotation/Comment:: Note probable rhabdomyolysis as above. Otherwise, Stable by history. Qualifiers: Osteoarthritis location: multiple joints Osteoarthritis type: primary Qualified Code(s): M89.49 - Other hypertrophic osteoarthropathy, multiple sites (11) Diabetic nephropathy Status: Chronic Priority: Medium Current Visit: Yes Annotation/Comment:: Acute renal failure as above with known previous history of diabetic nephropathy. Qualifiers: Diabetes mellitus type: type 2 Qualified Code(s): E11.21 - Type 2 diabetes mellitus with diabetic nephropathy (12) Hypomagnesemia SNOMED Code(s): 841580586 Code(s): E83.42 - HYPOMAGNESEMIA Status: Acute Priority: Medium Current Visit: Yes Onset Date: 02/21/17 Annotation/Comment:: Magnesium level is normal today after readjustment of her medications during recent hospitalization. (13) Anemia SNOMED Code(s): 800539394 Code(s): D64.9 - ANEMIA, UNSPECIFIED Status: Acute Priority: High Current Visit: Yes Onset Date: 02/27/18 Annotation/Comment:: Hemoglobin is actually improved from hospital discharge on 06/30 with previous hemoglobin of 10.8. Known history History of iron deficiency with history of medication noncompliance of her iron sulfate for quite some time prior to recent hospitalization which was reinitiated on that admission, although this was increased to a twice a day regimen secondary to progressive anemia on 06/26. No evidence of acute GI bleed, etc.. Recommend repeat iron studies about one month after discharge. Qualifiers: Anemia type: iron deficiency Iron deficiency anemia type: unspecified iron deficiency Qualified Code(s): D50.9 - Iron deficiency anemia, unspecified (14) Hyperphosphatemia SNOMED Code(s): 05716002 Code(s): E83.39 - OTHER DISORDERS OF PHOSPHORUS METABOLISM Status: Acute Priority: High Current Visit: Yes Onset Date: 07/14/19 Annotation/Comment: : Consider PhosLo depending on her clinical course. Not given in the emergency room secondary to her recurrent nausea and emesis. - Problem List Review Problem List Initiated/Reviewed/Updated: Yes - My Orders Last 24 Hours: My Active Orders 07/14/19 09:20 CULTURE BLOOD [BC] Stat CULTURE BLOOD [BC] Stat 07/14/19 10:24 Blood Culture x2 Reflex Set [OM.PC] Urgent 07/14/19 10:29 Peripheral IV Care [RC] . DIRECTED Sodium Chloride 0.9% [Saline Flush] 10 ml FLUSH ASDIRECTED PRN Obtain Past Medical Record [OM.PC] Routine Peripheral IV Insertion Adult [OM.PC] Routine 07/14/19 10:30 Sodium Chloride 0.9% [Normal Saline] 1,000 ml IV ASDIRECTED 07/14/19 10:51 Abdomen 2V AP Flat Upright [CR] Stat - Assessment/Plan Last 24 Hours: My Active Orders 07/14/19 09:20 CULTURE BLOOD [BC] Stat CULTURE BLOOD [BC] Stat 07/14/19 10:24 Blood Culture x2 Reflex Set [OM.PC] Urgent 07/14/19 10:29 Peripheral IV Care [RC] . DIRECTED Sodium Chloride 0.9% [Saline Flush] 10 ml FLUSH ASDIRECTED PRN Obtain Past Medical Record [OM.PC] Routine Peripheral IV Insertion Adult [OM.PC] Routine 07/14/19 10:30 Sodium Chloride 0.9% [Normal Saline] 1,000 ml IV ASDIRECTED 07/14/19 10:51 Abdomen 2V AP Flat Upright [CR] Stat Assessment:: As above Plan: As above. Extensive precautions were given to the patient, who is in agreement with the treatment plan. Ambulance transfer to [place] as above.
[2019-07-14] MEDS ORDERED: Ondansetron 4 MG/2 ML SDV IVPUSH ONE ×2 (10:23→11:16)
[2019-07-14] MEDS ORDERED: methylPREDNISolone Sodium Succinate 125 MG/2 ML SDV IVPUSH ONE (10:26)
[2019-07-14] MEDS ORDERED: Insulin Regular, Human 100 Units/ML 3 ML Vial SUBCUT ONE (10:27)
[2019-07-14] MEDS ORDERED: Furosemide 40 MG/4 ML VIAL IVPUSH ONE (10:27)
[2019-07-14] MEDS ORDERED: Sodium Polystyrene Sulfonate 15 GM/60 ML Susp 60 ML Bot RECTAL ONE (10:29)
[2019-07-14] MEDS ORDERED: Sodium Chloride 0.9% 1,000 ML IV SCH (10:30)
[2019-07-14] MEDS: Sodium Chloride 0.9% 10 ML Syringe FLUSH PRN ×2 (10:50→11:28)
[2019-07-14 10:52] LABS: PTT,PARTIAL THROMBOPLSTIN TIME 22.5 SEC (24.5-32.8)
== END 2019-07-14 12:40 ==
LOC: LL.ED 10:10
DX: N17.9 Acute kidney failure, unspecified (principal); E87.5 Hyperkalemia; R74.8 Abnormal levels of other serum enzymes; E83.39 Other disorders of phosphorus metabolism; D50.9 Iron deficiency anemia, unspecified; I13.0 Hypertensive heart and chronic kidney disease with heart failure and stage 1 through stage 4 chronic kidney disease, or unspecified chronic kidney disease; N18.3 Chronic kidney disease, stage 3 (moderate); I25.118 Atherosclerotic heart disease of native coronary artery with other forms of angina pectoris; I50.9 Heart failure, unspecified; J43.1 Panlobular emphysema; E11.21 Type 2 diabetes mellitus with diabetic nephropathy; E11.22 Type 2 diabetes mellitus with diabetic chronic kidney disease; M89.49 Other hypertrophic osteoarthropathy, multiple sites; E78.00 Pure hypercholesterolemia, unspecified; M19.90 Unspecified osteoarthritis, unspecified site; E11.42 Type 2 diabetes mellitus with diabetic polyneuropathy; E66.9 Obesity, unspecified; Z68.33 Body mass index [BMI] 33.0-33.9, adult; Z79.82 Long term (current) use of aspirin; Z79.4 Long term (current) use of insulin; Z79.899 Other long term (current) drug therapy; Z88.5 Allergy status to narcotic agent; Z99.81 Dependence on supplemental oxygen; Z87.891 Personal history of nicotine dependence
CPT/HCPCS: 36415; 74019; 82150; 83605; 83690; 84100; 84484; 85025; 85610; 85730; 87040; 93010; 96361; 96374; 96375; 96376; 99284; 99284-25; A9270-GY; J1815-GY; J1940; J2405; J2930; J7030

== ENCOUNTER 2019-12-02 05:13 | Inpatient (IN) | payer MEDICARE, OTHER ==
[2019-12-02] MEDS ORDERED: Albuterol/Ipratropium 3.0-0.5 MG/3 ML Neb Soln NEB ONE (05:27)
--- NOTE | 2019-12-02 05:33 | EDM.PDOC ---
ED HPI GENERAL MEDICAL PROBLEM - General Chief Complaint: Respiratory Problem Stated Complaint: SOB Time Seen by Provider: 12/02/19 05:15 Source of Information: Reports: Patient History Limitations: Reports: No Limitations - History of Present Illness INITIAL COMMENTS - FREE TEXT/NARRATIVE: Ms. Byers is a 79-year-old woman with a history of COPD, CHF, diabetes, HTN and coronary artery disease who is brought to the emergency department by ambulance for evaluation of shortness of breath. States she woke up about 1 AM this morning with significant increase in her breathing difficulty. Feels like she cannot get a good breath. Occasional cough. No fever or chills. No change in taste or smell. She did not use her nebulizer at home. She is on oxygen 2 L by nasal cannula at home. No chest pain or tightness. No known exposures. She states her breathing was at her baseline yesterday. - Related Data Allergies Allergy/AdvReac Type Severity Reaction Status Date / Time morphine Allergy Agitation Verified 07/14/19 11:29 Home Meds: Home Meds Albuterol/Ipratropium [DuoNeb 3.0-0.5 MG/3 ML] 3 ml NEB QID 02/21/17 [History] Latanoprost [Xalatan 0.005% Ophth Soln] 1 drop EYEBOTH BEDTIME 02/21/17 [History] atorvaSTATin Calcium [Atorvastatin Calcium] 40 mg PO BEDTIME 02/21/17 [History] Acetaminophen [Tylenol] 650 mg PO Q4H PRN tablet 03/01/18 [Rx] Albuterol/Ipratropium [DuoNeb 3.0-0.5 MG/3 ML] 3 ml NEB Q4HRRT PRN neb 03/01/18 [Rx] Loperamide [Imodium AD] 2 mg PO Q6H PRN #0 tablet 03/01/18 [Rx] Calcium Carbonate [Tums Extra Strength] 1,500 mg PO BEDTIME PRN 11/20/18 [History] Ferrous Sulfate 325 mg PO DAILY 11/20/18 [History] Aspirin [Lo-Dose Aspirin EC] 81 mg PO DAILY 06/26/19 [History] Brinzolamide [Azopt 1% Ophth Susp] 1 drop EYEBOTH BID 06/26/19 [History] Insulin Glarg,Human.Rec.Analog [Lantus Solostar] 14 units SUBCUT DAILY 06/26/19 [History] Insulin Glulisine [Apidra Solostar] 10 - 15 unit SUBCUT TID 06/26/19 [History] Losartan Potassium 50 mg PO DAILY 06/26/19 [History] Nitroglycerin 1 tab SL ASDIRECTED PRN 06/26/19 [History] carvediloL [Carvedilol] 25 mg PO BID 06/26/19 [History] Acetaminophen [Tylenol] 650 mg PO Q4H PRN tablet 07/01/19 [Rx] Albuterol/Ipratropium [DuoNeb 3.0-0.5 MG/3 ML] 3 ml NEB Q4HRRT PRN neb 07/01/19 [Rx] Albuterol/Ipratropium [DuoNeb 3.0-0.5 MG/3 ML] 3 ml NEB QID neb 07/01/19 [Rx] Amoxicillin/Potassium Clav [Augmentin 875-125 Tablet] 1 each PO BIDMEALS #14 tablet 07/01/19 [Rx] Calcium Carbonate [Tums Extra Strength] 1,500 mg PO BEDTIME tab.chew 07/01/19 [Rx] Dextromethorphan/guaiFENesin [Mucinex DM ER 600-30 MG] 1 tab PO Q12HR #20 tab.er 07/01/19 [Rx] Furosemide [Lasix] 40 mg PO BID #30 tab 07/01/19 [Rx] Potassium Chloride [Klor-Con M20] 20 meq PO BID #20 tab.er 07/01/19 [Rx] Spironolactone [Aldactone] 12.5 mg PO Q12HR #60 tablet 07/01/19 [Rx] Past Medical History HEENT History: Reports: Cataract, Glaucoma, Hard of Hearing, Impaired Vision, Other (See Below). Denies: Allergic Rhinitis, Otitis Media, Retinal Detachment Other HEENT History: Patient wears glasses; 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. No history of diabetic retinopathy. Cardiovascular History: Reports: Arrhythmia, CAD, Cardiomyopathy, Heart Failure, Heart Murmur, High Cholesterol, Hypertension, Pulmonary Hypertension, Syncope, Other (See Below). Denies: Afib, Aneurysm, Blood Clots/VTE/DVT, AR, PTCA, PVD Other Cardiovascular History: Nonischemic Cardiomyopathy with systolic/diastolic dysfunction, cardiomegaly, severe biatrial enlargement, and recurrent CHF with ejection fraction of 2530 percent and evidence of pulmonary hypertension and moderate mitral valve insufficiency by previous echocardiogram on 01/08/18, although improved ejection fraction of 45% at time of last echocardiogram on 09/05/18. Syncopal episode of unknown etiology in 2017. History of PVCs diagnosed in January 2017 and PACs in June 2019. Chronic D-dimer elevation on 02/21/17 with negative workup as below. Respiratory History: Reports: Bronchitis, Recurrent, COPD, Intubation, Previous, Pneumonia, Recurrent, Other (See Below). Denies: Asthma, Intubation, Difficult, PE, TB Other Respiratory History: O2 dependent COPD Gastrointestinal History: Reports: Cholelithiasis, Chronic Diarrhea, Gastritis, GERD, Hiatal Hernia. Denies: Celiac Disease, Chronic Constipation, Colon Polyp, GI Bleed, Hepatitis, Helicobacter Pylori, Inflammatory Bowel Disease, Irritable Bowel Syndrome, Jaundice, Pancreatitis, PUD Genitourinary History: Reports: Acute Renal Failure, Chronic Renal Insuffiency, Diabetic Nephropathy, Urinary Incontinence, UTI, Recurrent. Denies: Dialysis, Renal Calculus, Retention, Urinary, STD MINERALOGY PROFESSOR History: Reports: Dysfunctional Uterine Bleeding, Fibroids, . Denies: PID, Polycystic Ovaries, Spontaneous Other MINERALOGY PROFESSOR History: Surgical menopause secondary to dysfunctional uterine bleeding. Full term without complications during pregnancies or deliveries. Musculoskeletal History: Reports: Arthritis, Back Pain, Chronic, Neck Pain, Chr onic, Osteoarthritis, Osteoporosis. Denies: Amputation, Fracture, Gout, RA, SLE Neurological History: Reports: Headaches, Chronic, Migraines, Neuropathy, Diabetic, Neuropathy, Peripheral, Other (See Below). 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 Psychiatric History: Reports: None. Denies: Abuse, Victim of, ADD, ADHD, Addiction, Anxiety, Depression, Psych Hospitalization(s), Psychosis, PTSD, Suicide Attempt, Suicidal Ideation Other Psychiatric History: Son with alcohol abuse with secondary alcoholic cardiomyopathy, CHF, anxiety, depression, and successful suicide at age 45 with previous inpatient treatment for his addiction, etc. Endocrine/Metabolic History: Reports: Diabetes, Type II, Hypokalemia, Hypomagnesemia, IDDM, Obesity/BMI 30+, Osteopenia, Osteoporosis, Other (See Below). Denies: Diabetes, Gestational, Diabetes, Type I, Diabetes Mellitus, Type 3c, Hypothyroidism Other Endocrine/Metabolic History: Hypokalemia//hyperkalemia. Hypoalbuminemia. Hypocalcemia. Hematologic History: Reports: Anemia, Blood Transfusion(s), Iron Deficiency, Other (See Below). Denies: B12 Deficiency Other Hematologic History: Transfusion secondary to dysfunctional uterine bleeding in her 40s Immunologic History: Reports: None. Denies: AIDS, HIV, SLE Oncologic (Cancer) History: Reports: Cervix, Other (See Below). Denies: Basal Cell Carcinoma, Breast, Colon, Hodgkin's Lymphoma, Leukemia, Lymphoma, Non- Hodgkin's Lymphoma, Ovarian, Squamous Cell Carcinoma, Uterine Other Oncologic History: Incidental Cervical cancer in her 40s at time of her hysterectomy with no further treatment required Dermatologic History: Reports: Other (See Below). Denies: Eczema, Psoriasis Other Dermatologic History: Severe onychomycosis of the feet bilaterally. - Infectious Disease History Infectious Disease History: Reports: Chicken Pox, Measles, Mumps, TB. Denies: C-Difficile, Meningitis, Mononucleosis, MRSA, Novel Coronavirus, Pertussis (Whooping Cough), Rheumatic Fever, Rubella, Scarlet Fever, Shingles, VRE - Past Surgical History Head Surgeries/Procedures: Reports: None HEENT Surgical History: Reports: Cataract Surgery, Oral Surgery, Tonsillectomy, Other (See Below). Denies: Adenoidectomy, Eye Surgery, Laser Surgery, LASIK, Myringotomy w Tube(s), Naso-Sinus Surgery, Retinal Other HEENT Surgeries/Procedures: Bilateral cataract surgery in about 2013; Tonsillectomy at age 13 Cardiovascular Surgical History: Reports: None. Denies: Varicose, Vascular Surgery Respiratory Surgical History: Reports: None. Denies: Thoracentesis GI Surgical History: Reports: Appendectomy, Cholecystectomy, Colonoscopy, Other (See Below). Denies: EGD, Hernia, Abdominal, Hernia, Inguinal, Hernia Repair/Other, Polypectomy Other GI Surgeries/Procedures: Appendectomy in 1967; colonoscopy in about 2005 with previous evaluation 1994. Laparoscopic cholecystectomy in her 30s. Female Surgical History: Reports: Hysterectomy, Salpingo-Oophorectomy. Denies: Section, D&C, Tubal Ligation Other Female Surgeries/Procedures: Complete hysterectomy including bilateral salpingo-oophorectomy in her 30s secondary to dysfunctional uterine bleeding. Endocrine Surgical History: Reports: None. Denies: Thyroid Biopsy Neurological Surgical History: Reports: None. Denies: C-Spine, Discectomy, Laminectomy, Lumbar Spine, Sacral Spine, Spinal Fusion, Thoracic Spine, Vertebroplasty Musculoskeletal Surgical History: Reports: Arthroscopic Procedure, Carpal Tunnel, Joint Replacement, Knee Replacement, Shoulder Surgery, Other (See Below). Denies: Arthroscopic Knee, Ganglion Cyst, ORIF Other Musculoskeletal Surgeries/Procedures:: Left total knee arthroplasty in 2004; bilateral arthroscopic shoulder surgery in 2001 rather than in 1965 as per [facility] records; Left carpal tunnel release 1997. Oncologic Surgical History: Reports: None Dermatological Surgical History: Reports: None - Past Imaging History Past Imaging History: Reports: Cardiac Echo (Last echocardiogram on 08/26/18 with ejection fraction of 45% with previous echocardiogram on 05/04/17 and 01/08/18 with findings as above. Additional previous echocardiogram in June 2016 per patient with ejection fraction of 30% by patient history that time.), CAT Scan (Negative CTA of the chest for PE on 05/04/17 and 02/21/17.), Mammogram (Last on 05/21/17), Stress Testing (Negative for ischemia Lexiscan Cardiolite evaluation on 04/15/17 with ejection fraction of 31% diastolically and 46% systolically.), Ultrasound (Bilateral renal ultrasounds on 08/22/18.). Denies: ROBERT Screen, Angiography, DEXA Scan, Holter Monitor, MRA, MRI, PFT, Sleep Study, Venous Doppler Social & Family History - Family History HEENT: Reports: None. Denies: Glaucoma, Macular Degeneration, Retinal Detachment Cardiac: Reports: CAD, Cardiomyopathy, Heart Failure, High Cholesterol, Hypertension, AR, Other (See Below). Denies: Afib, AICD, Aneurysm, Arrhythmia, Blood Clots/VTE/DVT, Heart Murmur, PVD/COD, Syncope Other Cardiac Family History: Father with fatal AR at age 67; 3 brothers with hypertension; brother with hyperlipidemia; son with alcohol-induced cardiomyopathy Respiratory: Reports: None. Denies: Asthma, COPD, PE, Pneumothorax, Sleep Apnea GI: Reports: GERD, Other (See Below). Denies: Bowel Obstruction, Celiac Disease, Cholelithiasis, Colon Polyps, GI bleed, Inflammatory Bowel Disease, Irritable Bowel Syndrome, PUD Other GI Family History: GERD in brother : Reports: Diabetic Nephropathy, Dialysis, Renal Disease/Insufficiency, Other (See Below) Other Family History: Sister with diabetic nephropathy requiring dialysis OBGYN: Reports: Recurrent Spontaneous . Denies: Dysfunctional uterine bleeding, Endometriosis, Fibroids Other OBGYN Family History: Sister with recurrent SAB Musculoskeletal: Reports: None. Denies: Gout, Osteoarthritis, Osteoporosis, RA, SLE Neurological: Reports: None. Denies: Alzheimers Disease, CVA, Dementia, Migraines, MS, Neuropathy, Diabetic, Neuropathy, Peripheral, Parkinson's, Seizure, TIA Psychiatric: Reports: Anxiety, Depression, Psych Hospitalization(s), Suicide Attempt, Other (See Below). Denies: Abuse, Victim of, ADD, ADHD, PTSD Other Psychiatric Family History: Son with alcohol abuse with secondary alcoholic cardiomyopathy, CHF, anxiety, depression, and successful suicide at age 45 with previous inpatient treatment for his addiction, etc. Endocrine/Metabolic: Reports: Diabetes, type II, Other (See Below). Denies: Diabetes, Type I, Diabetes Mellitus, Type 3c, Hypothyroidism, IDDM Other Endocrine/Metabolic Family History: Sister with AODM with complications as above Hematologic: Reports: None. Denies: SLE Immunologic: Reports: None. Denies: AIDS, HIV, SLE Dermatologic: Reports: None. Denies: Eczema, Psoriasis Oncologic: Reports: Other (See Below) Other Oncologic Family History: Brothers 2 with unknown type of fatal cancer - Caffeine Use Caffeine Use: Reports: Soda (2 sodas per day), Tea (3 cups per day). Denies: Coffee, Energy Drinks - Living Situation & Occupation Living situation: Reports: (2016, 4 children), with Family (2 sons and [id number]) Occupation: Retired ([employer], retired at age 69) ED ROS GENERAL - Review of Systems Review Of Systems: See Below Constitutional: Denies: Fever, Chills HEENT: Denies: Rhinitis, Sinus Problem, Throat Pain, Vision Change Respiratory: Reports: Shortness of Breath, Wheezing, Cough. Denies: Sputum Cardiovascular: Denies: Chest Pain, Palpitations Endocrine: Reports: No Symptoms GI/Abdominal: Denies: Abdominal Pain, Nausea, Vomiting : Denies: Dysuria Musculoskeletal: Reports: No Symptoms Skin: Reports: No Symptoms Neurological: Denies: Confusion, Dizziness Psychiatric: Denies: Anxiety, Depression Hematologic/Lymphatic: Reports: No Symptoms Immunologic: Reports: No Symptoms ED EXAM, GENERAL - Physical Exam Exam: See Below Exam Limited By: No Limitations General Appearance: Alert, WD/WN, Mild Distress Ears: Normal External Exam, Normal Canal, Normal TMs Nose: Normal Inspection Throat/Mouth: Normal Inspection, Normal Oropharynx Head: Atraumatic, Normocephalic Neck: Normal Inspection, Non-Tender Respiratory/Chest: Other (Decreased air movement throughout. No significant wheezing. No rhonchi or rails.) Cardiovascular: Regular Rate, Rhythm, No Murmur Neurological: Alert, Oriented Psychiatric: Normal Affect, Normal Mood Skin Exam: Warm, Dry Course - Vital Signs Text/Narrative:: She was given a DuoNeb nebulization and breathing did improve. Showed improved air movement but increased wheezing especially on the right side. Elevated white count possibly consistent with pneumonia. She was given a single clonidine 0.1 mg with improvement in her blood pressure. Significant elevation of her BNP consistent with CHF. Will admit to the hospital for diuresis, IV steroids and IV antibiotics. Last Recorded V/S: Last Vital Signs Temp 36.3 C 12/02/19 05:21 Pulse 72 12/02/19 06:42 Resp 24 H 12/02/19 05:21 BP 172/66 H 12/02/19 06:42 Pulse Ox 100 12/02/19 06:42 - Orders/Labs/Meds Orders: Active Orders 24 hr Category Date Time Status RT Aerosol Therapy [RC] ASDIRECTED Care 12/02/19 05:27 Active Chest 2V [CR] Stat Exams 12/02/19 05:27 Taken Labs: Laboratory Tests 12/02/19 12/02/19 Range/Units 05:50 05:50 WBC 14.7 H (4.0-10.2) K/uL RBC 3.93 (3.77-5.09) M/uL Hgb 11.1 L (11.7-15.5) g/dL Hct 36.5 (34.0-46.0) % MCV 92.9 (84.0-98.0) fL MCH 28.2 (28.2-33.3) pg MCHC 30.4 L (31.7-36.0) g/dL RDW 13.7 (11.2-14.1) % Plt Count 194 (150-350) K/uL Neut % (Auto) 85.8 H (45.0-80.0) % Lymph % (Auto) 9.4 L (10.0-50.0) % [place] % (Auto) 4.4 (2.0-14.0) % Eos % (Auto) 0.3 (0.0-5.0) % Baso % (Auto) 0.1 (0.0-2.0) % Neut # (Auto) 12.61 H (1.40-7.00) K/uL Lymph # (Auto) 1.39 (0.50-3.50) K/uL [place] # (Auto) 0.64 (0.00-1.00) K/uL Eos # (Auto) 0.05 (0.00-0.50) K/uL Baso # (Auto) 0.02 (0.00-0.20) K/uL Sodium 143 (136-145) mmol/L Potassium 3.7 (3.5-5.1) mmol/L Chloride 105 (98-107) mmol/L Carbon Dioxide 28.1 (21.0-32.0) mmol/L BUN 38 H (7-18) mg/dL Creatinine 1.56 H (0.51-1.17) mg/dL Est Cr Clr Drug Dosing 25.25 mL/min Estimated GFR (MDRD) 32 mL/min Glucose 222 H (74-106) mg/dL Calcium 8.3 L (8.5-10.1) mg/dL Total Bilirubin 0.9 (0.2-1.0) mg/dL AST 14 L (15-37) U/L ALT 14 (12-78) U/L Alkaline Phosphatase 101 (46-116) IU/L NT-Pro-B Natriuret Pep 90113 H (0-125) pg/mL Total Protein 7.2 (6.4-8.2) g/dL Albumin 2.8 L (3.4-5.0) g/dL Meds: Medications Discontinued Medications Generic Name Dose Route Start Last Admin Trade Name Freq PRN Reason Stop Dose Admin Albuterol/Ipratropium 3 ml 09/08/20 05:27 12/02/19 06:09 Duoneb 3.0-0.5 Mg/3 Ml NEB 12/02/19 05:28 3 ml ONETIME ONE Administration Clonidine HCl 0.1 mg 12/02/19 06:11 12/02/19 06:16 Catapres PO 12/02/19 06:12 0.1 mg ONETIME ONE Administration - Radiology Interpretation Free Text/Narrative:: AP and lateral views of the chest. Findings: Moderate enlargement of the heart. No free air. Questionable infiltrate in the left lower lung. Departure - Departure Time of Disposition: 06:50 Disposition: Admitted As Inpatient 66 Condition: Fair Clinical Impression: CHF exacerbation, COPD exacerbation Hypertension Qualifiers: Hypertension type: essential hypertension Qualified Code(s): I10 - Essential (primary) hypertension Coronary artery disease Qualifiers: Coronary Disease-Associated Artery/Lesion type: unga artery [place] vs. transplanted heart: unga heart Associated angina: with stable angina Qualified Code(s): I25.118 - Atherosclerotic heart disease of unga coronary artery with other forms of angina pectoris Diabetes mellitus Qualifiers: Diabetes mellitus type: type 2 Diabetes mellitus nursing home insulin use: with 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 [employer] use Diabetes mellitus complication status: with kidney complications Diabetes mellitus complication detail: with chronic kidney disease Chronic kidney disease stage: stage 3 (moderate) Qualified Code(s): E11.22 - Type 2 diabetes mellitus with diabetic chronic kidney disease - Discharge Information Forms: ED Department Discharge Additional Instructions: Admits for IV antibiotics, steroids and diuresis. Sepsis Event Note (ED) - Evaluation Sepsis Screening Result: No Definite Risk - Focused Exam Vital Signs: Vital Signs Temp Pulse Resp BP BP Pulse Ox Pulse Ox 12/02/19 06:42 72 172/66 H 100 12/02/19 06:16 191/87 H 12/02/19 06:09 100 12/02/19 06:00 191/87 H 12/02/19 05:21 36.3 C 90 24 H 179/94 H 100 - My Orders Last 24 Hours: My Active Orders 12/02/19 05:27 RT Aerosol Therapy [RC] ASDIRECTED Chest 2V [CR] Stat - Assessment/Plan Last 24 Hours: My Active Orders 12/02/19 05:27 RT Aerosol Therapy [RC] ASDIRECTED Chest 2V [CR] Stat
[2019-12-02] MEDS ORDERED: cloNIDine 0.1 MG Tab PO ONE (06:11)
[2019-12-02] MEDS ORDERED: Bisacodyl 10 MG Supp RECTAL PRN (07:55)
[2019-12-02] MEDS ORDERED: Nitroglycerin 0.4 MG Tab.SL SL PRN (08:05)
[2019-12-02] MEDS ORDERED: Albuterol HFA 8.5 GM Inhaler INH PRN (10:00)
[2019-12-02] MEDS ORDERED: Loperamide 2 MG Tab PO PRN (10:00)
[2019-12-02] MEDS: Albuterol/Ipratropium 4 GM Inhalation Spray INH SCH ×4 (10:05→19:50)
[2019-12-02] MEDS: methylPREDNISolone Sodium Succinate 125 MG/2 ML SDV IVPUSH SCH (10:06)
[2019-12-02] MEDS: Furosemide 40 MG/4 ML VIAL IVPUSH SCH (10:06)
[2019-12-02] MEDS: Bumetanide 1 MG Tab PO SCH (10:07)
[2019-12-02] MEDS: Levofloxacin 500 MG Tab PO SCH (10:07)
[2019-12-02] MEDS: Losartan 50 MG Tab PO SCH (10:07)
[2019-12-02] MEDS: cefTRIAXone 1 GM in Sodium Chloride 0.9% 100 ML IV SCH (10:07)
[2019-12-02] MEDS: Aspirin 81 MG Tab.EC PO SCH (10:07)
[2019-12-02] MEDS: Ferrous Sulfate 325 MG Tab PO SCH (10:08)
[2019-12-02] MEDS: Insulin Lispro 100 Units/ML 3 ML Vial SUBCUT SCH ×2 (11:52→17:07)
[2019-12-02] MEDS ORDERED: Albuterol/Ipratropium 3.0-0.5 MG/3 ML Neb Soln NEB SCH (12:00)
[2019-12-02] MEDS: Dorzolamide 2% Ophth Soln 10 ML Bottle EYEBOTH SCH (17:08)
[2019-12-02] MEDS: Carvedilol 12.5 MG Tab PO SCH (17:10)
[2019-12-02] MEDS: atorvaSTATin 40 MG Tab PO SCH (19:50)
[2019-12-02] MEDS: Latanoprost 0.005% Ophth Soln 2.5 ML Bottle EYEBOTH SCH (19:51)
[2019-12-03] MEDS: cefTRIAXone 1 GM in Sodium Chloride 0.9% 100 ML IV SCH (07:08)
[2019-12-03] MEDS: Furosemide 40 MG/4 ML VIAL IVPUSH SCH (07:11)
[2019-12-03] MEDS: methylPREDNISolone Sodium Succinate 125 MG/2 ML SDV IVPUSH SCH (07:12)
[2019-12-03] MEDS: Sodium Chloride 0.9% 10 ML Syringe FLUSH PRN ×2 (07:14→07:22)
[2019-12-03] MEDS: Levofloxacin 500 MG Tab PO SCH (07:15)
[2019-12-03] MEDS: Ferrous Sulfate 325 MG Tab PO SCH (07:15)
[2019-12-03] MEDS: Bumetanide 1 MG Tab PO SCH (07:15)
[2019-12-03] MEDS: Carvedilol 25 MG Tab PO SCH (07:16)
[2019-12-03] MEDS: Losartan 50 MG Tab PO SCH (07:16)
[2019-12-03] MEDS: Aspirin 81 MG Tab.EC PO SCH (07:16)
[2019-12-03] MEDS: Albuterol/Ipratropium 4 GM Inhalation Spray INH SCH ×4 (07:25→19:58)
[2019-12-03] MEDS: Dorzolamide 2% Ophth Soln 10 ML Bottle EYEBOTH SCH ×2 (07:25→16:59)
[2019-12-03] MEDS: Insulin Lispro 100 Units/ML 3 ML Vial SUBCUT SCH ×3 (07:27→17:01)
[2019-12-03] MEDS: Insulin Glarg,Human.Rec.Analog 100 Unit/ML SUBCUT SCH (07:29)
[2019-12-03] MEDS ORDERED: Lidocaine 2% with EPINEPHrine 1:100,000 20 ML MDV INJECT ONE (12:35)
[2019-12-03] MEDS: Bacitracin/Neomycin/Polymyxin B Oint 0.9 GM U/D Packet TOP SCH (13:58)
--- NOTE | 2019-12-03 14:32 | PCM.PN ---
- General Info Date of Service: 12/03/19 Admission Dx/Problem (Free Text): Patient admitted for further evaluation and treatment of acute exacerbation of shortness of breath/possible pneumonia. Noted to have elevated WBC and proBNP. History of O2 dependent COPD. Subjective Update: Patient overall is feeling better today. Shortness of breath has significantly improved. Is complaining about an area on her back being sore/itchy over the last few days. No other changes reported. Functional Status: Reports: Pain Controlled, Tolerating Diet, Ambulating (with assistance), Urinating - Review of Systems General: Reports: No Symptoms HEENT: Reports: Glasses. Denies: Dysphasia, Headaches, Sinus Congestion, Sore Throat, Rhinitis, Visual Changes Pulmonary: Reports: Shortness of Breath (improved). Denies: Pleuritic Chest Pain, Cough, Sputum, Hemoptysis, Wheezing Cardiovascular: Reports: Dyspnea on Exertion (chronic). Denies: Chest Pain, Palpitations, Orthopnea, PND, Edema Gastrointestinal: Reports: No Symptoms (no acute changes from baseline). Denies: Constipation Genitourinary: Reports: No Symptoms Musculoskeletal: Reports: Other (chronic neck/back pain, unchanged from baseline) Skin: Reports: Other (sore area mid upper thoracic area) Neurological: Reports: No Symptoms (no acute changes from baseline) Psychiatric: Reports: No Symptoms - Patient Data Vitals - Most Recent: Last Vital Signs Temp 36.3 C 12/03/19 12:18 Pulse 76 12/03/19 12:18 Resp 20 12/03/19 12:18 BP 148/93 H 12/03/19 12:18 Pulse Ox 97 12/03/19 12:18 Weight - Most Recent: 84.414 kg I&O - Last 24 Hours: Intake & Output 12/02/19 12/03/19 12/03/19 22:59 06:59 14:59 Intake Total 620 Output Total 200 Balance 420 Lab Results Last 24 Hours: Laboratory Results - last 24 hr 12/02/19 12/02/19 12/03/19 Range/Units 17:03 21:13 07:07 WBC (4.0-10.2) K/uL RBC (3.77-5.09) M/uL Hgb (11.7-15.5) g/dL Hct (34.0-46.0) % MCV (84.0-98.0) fL MCH (28.2-33.3) pg MCHC (31.7-36.0) g/dL RDW (11.2-14.1) % Plt Count (150-350) K/uL Neut % (Auto) (45.0-80.0) % Lymph % (Auto) (10.0-50.0) % [place] % (Auto) (2.0-14.0) % Eos % (Auto) (0.0-5.0) % Baso % (Auto) (0.0-2.0) % Neut # (Auto) (1.40-7.00) K/uL Lymph # (Auto) (0.50-3.50) K/uL [place] # (Auto) (0.00-1.00) K/uL Eos # (Auto) (0.00-0.50) K/uL Baso # (Auto) (0.00-0.20) K/uL D-Dimer, Quantitative (0-400) ng/mL Sodium (136-145) mmol/L Potassium (3.5-5.1) mmol/L Chloride (98-107) mmol/L Carbon Dioxide (21.0-32.0) mmol/L BUN (7-18) mg/dL Creatinine (0.51-1.17) mg/dL Est Cr Clr Drug Dosing mL/min Estimated GFR (MDRD) mL/min Glucose (74-106) mg/dL POC Glucose 263 H* 252 H* 269 H* (65-110) mg/dl Calcium (8.5-10.1) mg/dL Magnesium (1.8-2.4) mg/dL Total Bilirubin (0.2-1.0) mg/dL AST (15-37) U/L ALT (12-78) U/L Alkaline Phosphatase (46-116) IU/L Troponin I (0.000-0.056) ng/mL Total Protein (6.4-8.2) g/dL Albumin (3.4-5.0) g/dL Specimen Type Urine Color Urine Appearance Urine pH (5.0-9.0) Ur Specific [place] (1.005-1.030) Urine Protein (NEGATIVE) mg/dL Urine Glucose (UA) (NEGATIVE) mg/dL Urine Ketones (NEGATIVE) mg/dL Urine Occult Blood (NEGATIVE) Urine Nitrite (NEGATIVE) Urine Bilirubin (NEGATIVE) Urine Urobilinogen (0.2-1.0) E.U./dL Ur Leukocyte Esterase (NEGATIVE) U Hyaline Cast (Auto) Urine RBC /HPF Urine WBC /HPF Ur Epithelial Cells /LPF Urine Bacteria (NONE TO FEW) /HPF 12/03/19 12/03/19 12/03/19 Range/Units 10:00 10:20 10:20 WBC 11.9 H (4.0-10.2) K/uL RBC 3.35 L (3.77-5.09) M/uL Hgb 9.5 L D (11.7-15.5) g/dL Hct 30.7 L (34.0-46.0) % MCV 91.6 (84.0-98.0) fL MCH 28.4 (28.2-33.3) pg MCHC 30.9 L (31.7-36.0) g/dL RDW 13.3 (11.2-14.1) % Plt Count 157 (150-350) K/uL Neut % (Auto) 90.5 H (45.0-80.0) % Lymph % (Auto) 6.9 L (10.0-50.0) % [place] % (Auto) 2.4 (2.0-14.0) % Eos % (Auto) 0.1 (0.0-5.0) % Baso % (Auto) 0.1 (0.0-2.0) % Neut # (Auto) 10.79 H (1.40-7.00) K/uL Lymph # (Auto) 0.82 (0.50-3.50) K/uL [place] # (Auto) 0.28 (0.00-1.00) K/uL Eos # (Auto) 0.01 (0.00-0.50) K/uL Baso # (Auto) 0.01 (0.00-0.20) K/uL D-Dimer, Quantitative (0-400) ng/mL Sodium 139 (136-145) mmol/L Potassium 3.7 (3.5-5.1) mmol/L Chloride 103 (98-107) mmol/L Carbon Dioxide 28.9 (21.0-32.0) mmol/L BUN 51 H (7-18) mg/dL Creatinine 1.72 H (0.51-1.17) mg/dL Est Cr Clr Drug Dosing 22.90 mL/min Estimated GFR (MDRD) 29 mL/min Glucose 291 H (74-106) mg/dL POC Glucose (65-110) mg/dl Calcium 8.1 L (8.5-10.1) mg/dL Magnesium 1.8 (1.8-2.4) mg/dL Total Bilirubin 0.4 (0.2-1.0) mg/dL AST 12 L (15-37) U/L ALT 12 (12-78) U/L Alkaline Phosphatase 70 (46-116) IU/L Troponin I 0.000 (0.000-0.056) ng/mL Total Protein 6.4 (6.4-8.2) g/dL Albumin 2.3 L (3.4-5.0) g/dL Specimen Type Urinblad Urine Color Yellow Urine Appearance Slightly cloudy Urine pH 5.0 (5.0-9.0) Ur Specific [place] 1.020 (1.005-1.030) Urine Protein >=300 H (NEGATIVE) mg/dL Urine Glucose (UA) 100 H (NEGATIVE) mg/dL Urine Ketones Negative (NEGATIVE) mg/dL Urine Occult Blood Moderate H (NEGATIVE) Urine Nitrite Negative (NEGATIVE) Urine Bilirubin Negative (NEGATIVE) Urine Urobilinogen 0.2 (0.2-1.0) E.U./dL Ur Leukocyte Esterase Small H (NEGATIVE) U Hyaline Cast (Auto) Few Urine RBC 20-30 H /HPF Urine WBC 40-50 H /HPF Ur Epithelial Cells Few /LPF Urine Bacteria Few (NONE TO FEW) /HPF 12/03/19 12/03/19 Range/Units 10:20 11:37 WBC (4.0-10.2) K/uL RBC (3.77-5.09) M/uL Hgb (11.7-15.5) g/dL Hct (34.0-46.0) % MCV (84.0-98.0) fL MCH (28.2-33.3) pg MCHC (31.7-36.0) g/dL RDW (11.2-14.1) % Plt Count (150-350) K/uL Neut % (Auto) (45.0-80.0) % Lymph % (Auto) (10.0-50.0) % [place] % (Auto) (2.0-14.0) % Eos % (Auto) (0.0-5.0) % Baso % (Auto) (0.0-2.0) % Neut # (Auto) (1.40-7.00) K/uL Lymph # (Auto) (0.50-3.50) K/uL [place] # (Auto) (0.00-1.00) K/uL Eos # (Auto) (0.00-0.50) K/uL Baso # (Auto) (0.00-0.20) K/uL D-Dimer, Quantitative 539 H (0-400) ng/mL Sodium (136-145) mmol/L Potassium (3.5-5.1) mmol/L Chloride (98-107) mmol/L Carbon Dioxide (21.0-32.0) mmol/L BUN (7-18) mg/dL Creatinine (0.51-1.17) mg/dL Est Cr Clr Drug Dosing mL/min Estimated GFR (MDRD) mL/min Glucose (74-106) mg/dL POC Glucose 225 H (65-110) mg/dl Calcium (8.5-10.1) mg/dL Magnesium (1.8-2.4) mg/dL Total Bilirubin (0.2-1.0) mg/dL AST (15-37) U/L ALT (12-78) U/L Alkaline Phosphatase (46-116) IU/L Troponin I (0.000-0.056) ng/mL Total Protein (6.4-8.2) g/dL Albumin (3.4-5.0) g/dL Specimen Type Urine Color Urine Appearance Urine pH (5.0-9.0) Ur Specific [place] (1.005-1.030) Urine Protein (NEGATIVE) mg/dL Urine Glucose (UA) (NEGATIVE) mg/dL Urine Ketones (NEGATIVE) mg/dL Urine Occult Blood (NEGATIVE) Urine Nitrite (NEGATIVE) Urine Bilirubin (NEGATIVE) Urine Urobilinogen (0.2-1.0) E.U./dL Ur Leukocyte Esterase (NEGATIVE) U Hyaline Cast (Auto) Urine RBC /HPF Urine WBC /HPF Ur Epithelial Cells /LPF Urine Bacteria (NONE TO FEW) /HPF Med Orders - Current: Current Medications Acetaminophen (Tylenol) 650 mg PO Q4H PRN PRN Reason: analgesia/fever Albuterol (Proair Hfa) 1 gm INH Q2H PRN PRN Reason: Shortness of Breath Albuterol/Ipratropium (Combivent Respimat) 1 gm INH QID [facility] Last Admin: 12/03/19 12:15 Dose: 2 puff Documented by: Aspirin (Halfprin) 81 mg PO DAILY [facility] Last Admin: 12/03/19 07:16 Dose: 81 mg Documented by: Atorvastatin Calcium (Lipitor) 40 mg PO BEDTIME [facility] Last Admin: 12/02/19 19:50 Dose: 40 mg Documented by: Bisacodyl (Dulcolax) 10 mg RECTAL DAILY PRN PRN Reason: Constipation Bumetanide (Bumex) 1 mg PO DAILY [facility] Last Admin: 12/03/19 07:15 Dose: 1 mg Documented by: Carvedilol (Coreg) 12.5 mg PO QPM [facility] Last Admin: 12/02/19 17:10 Dose: 12.5 mg Documented by: Carvedilol (Coreg) 25 mg PO QAM [facility] Last Admin: 12/03/19 07:16 Dose: 25 mg Documented by: Dorzolamide HCl (Trusopt 2% Ophth Soln) 1 ml EYEBOTH BID [facility] Last Admin: 12/03/19 07:25 Dose: 1 drop Documented by: Ferrous Sulfate (Ferrous Sulfate) 325 mg PO DAILY [facility] Last Admin: 12/03/19 07:15 Dose: 325 mg Documented by: Furosemide (Lasix) 40 mg IVPUSH DAILY [facility] Last Admin: 12/03/19 07:11 Dose: 40 mg Documented by: Ceftriaxone Sodium 1 gm/ (Sodium Chloride) 100 mls @ 200 mls/hr IV Q24H [facility] Last Admin: 12/03/19 07:08 Dose: 200 mls/hr Documented by: Insulin Glargine (Lantus) 10 unit SUBCUT DAILY [facility] Last Admin: 12/03/19 07:29 Dose: 10 units Documented by: Insulin Human Lispro (Humalog) 10 unit SUBCUT TID [facility] Last Admin: 09/09/20 12:15 Dose: 10 units Documented by: Latanoprost (Xalatan 0.005% Ophth Soln) 0 ml EYEBOTH BEDTIME [facility] Last Admin: 12/02/19 19:51 Dose: 1 drop Documented by: Levofloxacin (Levaquin) 500 mg PO Q24H [facility] Last Admin: 12/03/19 07:15 Dose: 500 mg Documented by: Loperamide HCl (Imodium Ad) 2 mg PO Q6H PRN PRN Reason: Diarrhea Losartan Potassium (Cozaar) 50 mg PO DAILY [facility] Last Admin: 12/03/19 07:16 Dose: 50 mg Documented by: Methylprednisolone Sodium Succinate (Solu-Medrol) 125 mg IVPUSH DAILY [facility] Last Admin: 12/03/19 07:12 Dose: 125 mg Documented by: Neomycin/Polymyxin/Bacitracin (Triple Antibiotic Oint) 1 each TOP DAILY [facility] Last Admin: 12/03/19 13:58 Dose: 1 each Documented by: Nitroglycerin (Nitrostat) 0.4 mg SL ASDIRECTED PRN PRN Reason: Chest Pain Sodium Chloride (Saline Flush) 10 ml FLUSH ASDIRECTED PRN PRN Reason: Keep Vein Open Last Admin: 12/03/19 07:22 Dose: 10 ml Documented by: Discontinued Medications Albuterol/Ipratropium (Duoneb 3.0-0.5 Mg/3 Ml) 3 ml NEB ONETIME ONE Stop: 12/02/19 05:28 Last Admin: 12/02/19 06:09 Dose: 3 ml Documented by: Albuterol/Ipratropium (Duoneb 3.0-0.5 Mg/3 Ml) 3 ml NEB QID [facility] Clonidine HCl (Catapres) 0.1 mg PO ONETIME ONE Stop: 12/02/19 06:12 Last Admin: 12/02/19 06:16 Dose: 0.1 mg Documented by: Lidocaine/Epinephrine (Xylocaine 2% With Epinephrine 1:100,000) 20 ml INJECT ONETIME ONE Stop: 12/03/19 12:36 Last Admin: 12/03/19 13:10 Dose: 20 ml Documented by: - Exam Quality Assessment: Supplemental Oxygen (1L at this time) General: Alert, Oriented, Cooperative, No Acute Distress HEENT: Pupils Equal, Pupils Reactive, EOMI, Mucous Membr. Moist/[place] Neck: Supple Lungs: Clear to Auscultation, Normal Respiratory Effort (moderate inspiratory effort). No: Crackles, Rales, Rhonchi, Rub, Stridor, Wheezing Cardiovascular: Regular Rate, Regular Rhythm GI/Abdominal Exam: Normal Bowel Sounds, Soft, Non-Tender, No Distention (Female) Exam: Deferred Back Exam: No: CVA Tenderness (L), CVA Tenderness (R), Muscle Spasm, Vertebral Tenderness Extremities: Non-Tender, Normal Capillary Refill Skin: Warm, Dry, Other (4cm area of firmness noted mid thoracic area with some purplish discoloration of skin. Several obviously plugged gland entrances noted. No increased warmth or drainage. Minimal discomfort with palpation of area. ) Neurological: No New Focal Deficit Psy/Mental Status: Alert, Normal Affect, Normal Mood EKG INTERPRETATION EKG Date: 12/03/19 Time: 10:09 Rhythm: NSR Rate (Beats/Min): 68 [place]: Normal P-Wave: Present QRS: Normal ST-T: Normal QT: Prolonged Comparison: Other: (overall minimal changes when compared to several previous EKGs other than prolonged QT noted today) Sepsis Event Note - Evaluation Sepsis Screening Result: No Definite Risk - Focused Exam Vital Signs: Vital Signs Temp Pulse Pulse Resp BP BP BP 12/03/19 12:18 36.3 C 76 20 148/93 H 12/03/19 07:16 68 150/69 H 12/03/19 07:10 36.3 C 68 20 150/69 H 12/03/19 03:45 36.3 C 69 16 127/64 Pulse Ox 12/03/19 12:18 97 12/03/19 07:16 12/03/19 07:10 100 12/03/19 03:45 99 - Problem List & Annotations (1) SOB (shortness of breath) SNOMED Code(s): 708428342 Code(s): R06.02 - SHORTNESS OF BREATH Status: Acute Priority: High Current Visit: Yes Annotation/Comment:: Patient noted acute increased SOB yesterday. Possible COPD exacerbation given recent weather changes. She did feel better yesterday after getting neb in ER. Elevated proBNP but no evidence of acute obvious fluid overload on chest xray or exam. Has chronic elevated DDimer with several negative scans in past. Noted to sat 98-100% on her usual home O2 and no tachypnea/new chest pain. Discussed sending her to [place] for VQ scan to officially rule out possibility of PE contributing to her initial complaint. She declines further testing for this at this time. No obvious pneumonia on xray, however she was noted to have elevated WBC and was empirically started on antibiotics by admitting provider. Also receiving Solumedrol to target possible COPD exacerbation as well as cautious dose of lasix (given her chronic renal insufficiency) to address mild fluid overload. (2) COPD (chronic obstructive pulmonary disease) SNOMED Code(s): 53974301 Code(s): J44.9 - CHRONIC OBSTRUCTIVE PULMONARY DISEASE, UNSPECIFIED Status: Chronic Priority: Medium Current Visit: No Qualifiers: COPD type: emphysema Emphysema type: panlobular Qualified Code(s): J43.1 - Panlobular emphysema Annotation/Comment:: No recent fever or bronchitic type symptoms. Increased SOB yesterday as noted above. (3) Recurrent UTI SNOMED Code(s): 455934031 Code(s): N39.0 - URINARY TRACT INFECTION, SITE NOT SPECIFIED Status: Chronic Priority: Medium Current Visit: Yes Annotation/Comment:: Elevated WBC noted in urine along with some RBCs. Afebrile. No UTI symptoms. UC ordered. On Levaquin and Rocephin which should offer good coverage for UTI. (4) Anemia SNOMED Code(s): 046053637 Code(s): D64.9 - ANEMIA, UNSPECIFIED Status: Acute Priority: Low Current Visit: Yes Onset Date: 02/27/18 Qualifiers: Anemia type: due to chronic kidney disease Annotation/Comment:: Chronic. Contributions from both iron deficiency and chronic renal disease. No evidence of acute GI bleed based on history/ER exam. Noted to have change from 11.1 to 9.5 Hgb today's labs. Will check stool for occult blood and continue to monitor trends. (5) Glaucoma SNOMED Code(s): 14700730 Code(s): H40.9 - UNSPECIFIED GLAUCOMA Status: Chronic Priority: Low Current Visit: No Annotation/Comment:: Stable per history (6) Prolonged QT interval SNOMED Code(s): 987388973 Code(s): R94.31 - ABNORMAL ELECTROCARDIOGRAM [ECG] [EKG] Status: Acute Priority: Low Current Visit: Yes Annotation/Comment:: Prolonged QT noted on today's EKG. (7) Peripheral neuropathy SNOMED Code(s): 378679826 Code(s): G62.9 - POLYNEUROPATHY, UNSPECIFIED Status: Chronic Priority: Low Current Visit: No Annotation/Comment:: Stable per history (8) CHF (congestive heart failure) SNOMED Code(s): 61999955 Code(s): I50.9 - HEART FAILURE, UNSPECIFIED Status: Acute Priority: High Current Visit: No Onset Date: 02/21/17 Qualifiers: Heart failure type: unspecified Heart failure chronicity: acute on chronic Qualified Code(s): I50.9 - Heart failure, unspecified Annotation/Comment:: No chest pain or anginal type symptoms. No reported recent weight gain. History of cardiomegaly, previous SVT. Echocardiogram on 08/26/18 with an ejection fraction of 45% at that time. Note history of pulmonary hypertension. Elevated proBNP noted in ER without evidence of significant overload noted on chest xray/physical exam. Cautious Lasix IV daily in view of patient's poor renal function. BUN 51 and Cr 1.72 today. (9) D-dimer, elevated SNOMED Code(s): 710419201 Code(s): R79.89 - OTHER SPECIFIED ABNORMAL FINDINGS OF BLOOD CHEMISTRY Status: Acute Priority: High Current Visit: No Onset Date: 02/21/17 Annotation/Comment:: Patient noted to have elevated DDimer levels on all lab draws but one since 2017. Note previous distant negative CTA of the chest 2 in the past as above. No suspicion for DVTs lower legs on exam today. Patient's O2 sats 100% on [place] 1-2L and no increased RR observed. Low suspicion for PE at this time. Discussed potential for PE with patient, and testing required to rule it out (VQ scan). At this time she wants to wait given that she is feeling better, and did not want transfer to [place] for a scan. Unable to perform CT study due to her renal function. (10) Coronary artery disease SNOMED Code(s): 27187541 Code(s): I25.10 - ATHSCL HEART DISEASE OF [place] CORONARY ARTERY W/O ANG PCTRS Status: Chronic Priority: Low Current Visit: Yes Onset Date: 11/30/17 Qualifiers: Coronary Disease-Associated Artery/Lesion type: [place] artery [place] vs. transplanted heart: [place] heart Associated angina: with stable angina Qualified Code(s): I25.118 - Atherosclerotic heart disease of [place] coronary artery with other forms of angina pectoris Annotation/Comment:: No chest pain/anginal complaints. No evidence of acute ischemia on EKG. Troponin today negative. (11) Diabetes mellitus SNOMED Code(s): 46307963 Code(s): E11.9 - TYPE 2 DIABETES MELLITUS WITHOUT COMPLICATIONS Status: Chronic Priority: Medium Current Visit: No Qualifiers: Diabetes mellitus type: type 2 Diabetes mellitus shelter insulin use: with termite control service representative use Diabetes mellitus complication status: with kidney complications Diabetes mellitus complication detail: with chronic kidney disease Chronic kidney disease stage: stage 3 (moderate) Qualified Code(s): E11.22 - Type 2 diabetes mellitus with diabetic chronic kidney disease; N18.3 - Chronic kidney disease, stage 3 (moderate); Z79.4 - nursing home (current) use of insulin Annotation/Comment:: Blood sugars in 200s during stay. Observing trends. (12) Diabetic nephropathy Status: Chronic Priority: Low Current Visit: No Qualifiers: Diabetes mellitus type: type 2 Qualified Code(s): E11.21 - Type 2 diabetes mellitus with diabetic nephropathy Annotation/Comment:: Observing closely. (13) Hypertension SNOMED Code(s): 88489968 Code(s): I10 - ESSENTIAL (PRIMARY) HYPERTENSION Status: Chronic Priority: Medium Current Visit: No Qualifiers: Hypertension type: essential hypertension Qualified Code(s): I10 - Essential (primary) hypertension Annotation/Comment:: Systolic reading is usually elevated when checked. Observing trends. Continue to observe closely by her regular provider after discharge. (14) Osteoarthritis SNOMED Code(s): 769242034 Code(s): M19.90 - UNSPECIFIED OSTEOARTHRITIS, UNSPECIFIED SITE Status: Chronic Priority: High Current Visit: No Qualifiers: Osteoarthritis location: multiple joints Osteoarthritis type: primary Qualified Code(s): M89.49 - Other hypertrophic osteoarthropathy, multiple sites Annotation/Comment:: Stable by history. (15) Peptic reflux disease SNOMED Code(s): 734775102 Code(s): K21.9 - GASTRO-ESOPHAGEAL REFLUX DISEASE WITHOUT ESOPHAGITIS Status: Chronic Priority: Medium Current Visit: No Annotation/Comment:: Stable by history. (16) EIC (epidermal inclusion cyst) SNOMED Code(s): 594160520 Code(s): L72.0 - EPIDERMAL CYST Status: Acute Priority: Medium Current Visit: Yes Annotation/Comment:: Patient noted to have large EIC middle of upper back. Mildly irritated but not obviously acutely infected. Patient reported increasing discomfort/itching of site. Unable to comfortably lay back in bed. Because of this and concern for developing abscess the cyst was incised and cyst material and some of cyst wall removed. - Problem List Review Problem List Initiated/Reviewed/Updated: Yes - My Orders Last 24 Hours: My Active Orders 12/02/19 14:00 CORONAVIRUS COVID-19 PCR PHL Routine 12/03/19 10:01 EKG Documentation Completion [RC] ASDIRECTED 12/03/19 13:37 CULTURE URINE [RM] Routine 12/03/19 13:45 Bacitracin/Neomycin/Polymyxin [Triple Antibiotic Oint] 1 each TOP DAILY 12/04/19 08:00 Wound Care [RC] DAILY - Assessment Assessment:: as above - Plan Plan:: as above. Continue coverage for UTI/possible pneumonia and respiratory support. Continue to observe renal function and Hgb trends. Anticipate discharge home in 3 days if she remains stable/continues to improve, and Hgb/renal function remain stable.
--- NOTE | 2019-12-03 15:23 | PCM.PRNOTE ---
- Free Text/Narrative Note: Suspected 4cm epidermal inclusion cyst noted mid thoracic area of patient's upper back. Cyst present for some time per patient. Getting larger. Over last few days she has noticed it has been bothering her. Uncomfortable to lay on in bed, itching. Given the worsening discomfort and purplish color of the overlying skin, plan to I&D cyst formulated. There was concern for developing abscess. Area around cyst infiltrated with 2% Lidocaine with Epi for anesthesia. Surgical prep used to cleanse upper back. using sterile technique skin overlying cyst incised with #15 blade. 3cm incision. Copious amounts of cyst material expressed from area once cyst located. No obviously purulent material noted. Able to remove some of cyst wall. Incision closed with 5 interrupted 4-0 nylon sutures. Antibiotic ointment applied and wound dressed.
[2019-12-03] MEDS: Acetaminophen 325 MG Tab PO PRN (16:54)
[2019-12-03] MEDS: Carvedilol 12.5 MG Tab PO SCH (17:00)
[2019-12-03] MEDS: atorvaSTATin 40 MG Tab PO SCH (19:58)
[2019-12-03] MEDS: Latanoprost 0.005% Ophth Soln 2.5 ML Bottle EYEBOTH SCH (19:58)
--- NOTE | 2019-12-03 20:49 | PCM.SN.2 ---
- Free Text/Narrative Note: Covid testing result: negative. Lovenox not added for DVT prophylaxis given observed Hgb drop. Recheck Hgb in AM. No evidence of GI bleed noted.
[2019-12-03] MEDS: Insulin Regular, Human 100 Units/ML 3 ML Vial SUBCUT SCH (21:01)
[2019-12-04] MEDS: Bumetanide 1 MG Tab PO SCH (07:21)
[2019-12-04] MEDS: Albuterol/Ipratropium 4 GM Inhalation Spray INH SCH ×4 (07:21→19:14)
[2019-12-04] MEDS: Carvedilol 25 MG Tab PO SCH (07:22)
[2019-12-04] MEDS: Losartan 50 MG Tab PO SCH (07:22)
[2019-12-04] MEDS: Aspirin 81 MG Tab.EC PO SCH (07:23)
[2019-12-04] MEDS: Ferrous Sulfate 325 MG Tab PO SCH (07:23)
[2019-12-04] MEDS: Levofloxacin 500 MG Tab PO SCH (07:23)
[2019-12-04] MEDS: Bacitracin/Neomycin/Polymyxin B Oint 0.9 GM U/D Packet TOP SCH (07:24)
[2019-12-04] MEDS: Dorzolamide 2% Ophth Soln 10 ML Bottle EYEBOTH SCH ×2 (07:24→17:11)
[2019-12-04] MEDS: cefTRIAXone 1 GM in Sodium Chloride 0.9% 100 ML IV SCH (07:25)
[2019-12-04] MEDS: Insulin Regular, Human 100 Units/ML 3 ML Vial SUBCUT SCH ×4 (07:25→21:21)
[2019-12-04] MEDS: Sodium Chloride 0.9% 10 ML Syringe FLUSH PRN (07:29)
[2019-12-04] MEDS: Insulin Lispro 100 Units/ML 3 ML Vial SUBCUT SCH ×3 (07:39→17:10)
[2019-12-04] MEDS: Insulin Glarg,Human.Rec.Analog 100 Unit/ML SUBCUT SCH (07:41)
[2019-12-04] MEDS: Furosemide 40 MG/4 ML VIAL IVPUSH SCH (09:15)
[2019-12-04] MEDS: methylPREDNISolone Sodium Succinate 125 MG/2 ML SDV IVPUSH SCH (09:16)
--- NOTE | 2019-12-04 13:41 | PCM.PN ---
- General Info Date of Service: 12/04/19 Admission Dx/Problem (Free Text): Patient admitted for further evaluation and treatment of acute exacerbation of shortness of breath/possible pneumonia. Noted to have elevated WBC and proBNP. History of O2 dependent COPD. Subjective Update: Patient overall is feeling better today. Shortness of breath has significantly improved and patient feels she is back to baseline. Functional Status: Reports: Pain Controlled, Tolerating Diet, Ambulating, Urinating. Denies: New Symptoms - Review of Systems General: Reports: No Symptoms HEENT: Denies: Dysphasia, Ear Pain, Eye Pain, Headaches, Sinus Congestion, Sore Throat, Rhinitis Pulmonary: Reports: Shortness of Breath (back to baseline). Denies: Pleuritic Chest Pain, Cough, Sputum, Hemoptysis, Wheezing Cardiovascular: Denies: Chest Pain, Palpitations, Orthopnea, PND, Edema, Lightheadedness Gastrointestinal: Reports: No Symptoms Genitourinary: Reports: No Symptoms Musculoskeletal: Reports: No Symptoms (no acute changes from baseline) Skin: Reports: No Symptoms Neurological: Reports: No Symptoms Psychiatric: Reports: No Symptoms - Patient Data Vitals - Most Recent: Last Vital Signs Temp 36.6 C 12/04/19 12:00 Pulse 69 12/04/19 12:00 Resp 98 H 12/04/19 12:00 BP 134/63 12/04/19 12:00 Pulse Ox 99 12/03/19 20:00 Weight - Most Recent: 84.414 kg I&O - Last 24 Hours: Intake & Output 12/03/19 12/04/19 12/04/19 22:59 06:59 14:59 Output Total 100 Balance -100 Lab Results Last 24 Hours: Laboratory Results - last 24 hr 12/03/19 12/03/19 12/03/19 Range/Units 16:57 18:02 20:50 WBC (4.0-10.2) K/uL RBC (3.77-5.09) M/uL Hgb (11.7-15.5) g/dL Hct (34.0-46.0) % MCV (84.0-98.0) fL MCH (28.2-33.3) pg MCHC (31.7-36.0) g/dL RDW (11.2-14.1) % Plt Count (150-350) K/uL Neut % (Auto) (45.0-80.0) % Lymph % (Auto) (10.0-50.0) % [place] % (Auto) (2.0-14.0) % Eos % (Auto) (0.0-5.0) % Baso % (Auto) (0.0-2.0) % Neut # (Auto) (1.40-7.00) K/uL Lymph # (Auto) (0.50-3.50) K/uL [place] # (Auto) (0.00-1.00) K/uL Eos # (Auto) (0.00-0.50) K/uL Baso # (Auto) (0.00-0.20) K/uL Sodium (136-145) mmol/L Potassium (3.5-5.1) mmol/L Chloride (98-107) mmol/L Carbon Dioxide (21.0-32.0) mmol/L BUN (7-18) mg/dL Creatinine (0.51-1.17) mg/dL Est Cr Clr Drug Dosing mL/min Estimated GFR (MDRD) mL/min Glucose (74-106) mg/dL POC Glucose 385 H* 309 H* 323 H* (65-110) mg/dl Calcium (8.5-10.1) mg/dL 12/04/19 12/04/19 12/04/19 Range/Units 06:55 06:55 06:57 WBC 12.0 H (4.0-10.2) K/uL RBC 3.30 L (3.77-5.09) M/uL Hgb 9.5 L (11.7-15.5) g/dL Hct 30.0 L (34.0-46.0) % MCV 90.9 (84.0-98.0) fL MCH 28.8 (28.2-33.3) pg MCHC 31.7 (31.7-36.0) g/dL RDW 13.3 (11.2-14.1) % Plt Count 169 (150-350) K/uL Neut % (Auto) 86.5 H (45.0-80.0) % Lymph % (Auto) 7.5 L (10.0-50.0) % [place] % (Auto) 6.0 (2.0-14.0) % Eos % (Auto) 0.0 (0.0-5.0) % Baso % (Auto) 0.0 (0.0-2.0) % Neut # (Auto) 10.37 H (1.40-7.00) K/uL Lymph # (Auto) 0.90 (0.50-3.50) K/uL [place] # (Auto) 0.72 (0.00-1.00) K/uL Eos # (Auto) 0.00 (0.00-0.50) K/uL Baso # (Auto) 0.00 (0.00-0.20) K/uL Sodium 140 (136-145) mmol/L Potassium 4.0 (3.5-5.1) mmol/L Chloride 105 (98-107) mmol/L Carbon Dioxide 27.1 (21.0-32.0) mmol/L BUN 61 H (7-18) mg/dL Creatinine 2.06 H (0.51-1.17) mg/dL Est Cr Clr Drug Dosing 19.26 mL/min Estimated GFR (MDRD) 23 mL/min Glucose 287 H (74-106) mg/dL POC Glucose 283 H* (65-110) mg/dl Calcium 7.9 L (8.5-10.1) mg/dL 12/04/19 Range/Units 11:06 WBC (4.0-10.2) K/uL RBC (3.77-5.09) M/uL Hgb (11.7-15.5) g/dL Hct (34.0-46.0) % MCV (84.0-98.0) fL MCH (28.2-33.3) pg MCHC (31.7-36.0) g/dL RDW (11.2-14.1) % Plt Count (150-350) K/uL Neut % (Auto) (45.0-80.0) % Lymph % (Auto) (10.0-50.0) % [place] % (Auto) (2.0-14.0) % Eos % (Auto) (0.0-5.0) % Baso % (Auto) (0.0-2.0) % Neut # (Auto) (1.40-7.00) K/uL Lymph # (Auto) (0.50-3.50) K/uL [place] # (Auto) (0.00-1.00) K/uL Eos # (Auto) (0.00-0.50) K/uL Baso # (Auto) (0.00-0.20) K/uL Sodium (136-145) mmol/L Potassium (3.5-5.1) mmol/L Chloride (98-107) mmol/L Carbon Dioxide (21.0-32.0) mmol/L BUN (7-18) mg/dL Creatinine (0.51-1.17) mg/dL Est Cr Clr Drug Dosing mL/min Estimated GFR (MDRD) mL/min Glucose (74-106) mg/dL POC Glucose 271 H* (65-110) mg/dl Calcium (8.5-10.1) mg/dL Pool Results Last 24 Hours: Microbiology 12/03/19 14:57 Stool Occult Blood (POOL) - Final Stool / Feces NEGATIVE OCCULT BLOOD REFERENCE RANGE: NEGATIVE 12/03/19 10:50 Urine Culture - Preliminary Urine, Voided NO GROWTH AFTER 1 DAY Med Orders - Current: Current Medications Acetaminophen (Tylenol) 650 mg PO Q4H PRN PRN Reason: analgesia/fever Last Admin: 12/03/19 16:54 Dose: 650 mg Documented by: Albuterol (Proair Hfa) 1 gm INH Q2H PRN PRN Reason: Shortness of Breath Albuterol/Ipratropium (Combivent Respimat) 1 gm INH QID [facility] Last Admin: 12/04/19 11:38 Dose: 2 puff Documented by: Aspirin (Halfprin) 81 mg PO DAILY [facility] Last Admin: 12/04/19 07:23 Dose: 81 mg Documented by: Atorvastatin Calcium (Lipitor) 40 mg PO BEDTIME [facility] Last Admin: 12/03/19 19:58 Dose: 40 mg Documented by: Bisacodyl (Dulcolax) 10 mg RECTAL DAILY PRN PRN Reason: Constipation Bumetanide (Bumex) 1 mg PO DAILY [facility] Last Admin: 12/04/19 07:21 Dose: 1 mg Documented by: Carvedilol (Coreg) 12.5 mg PO QPM [facility] Last Admin: 12/03/19 17:00 Dose: 12.5 mg Documented by: Carvedilol (Coreg) 25 mg PO QAM [facility] Last Admin: 12/04/19 07:22 Dose: 25 mg Documented by: Dorzolamide HCl (Trusopt 2% Ophth Soln) 1 ml EYEBOTH BID [facility] Last Admin: 12/04/19 07:24 Dose: 1 drop Documented by: Ferrous Sulfate (Ferrous Sulfate) 325 mg PO DAILY [facility] Last Admin: 12/04/19 07:23 Dose: 325 mg Documented by: Ceftriaxone Sodium 1 gm/ (Sodium Chloride) 100 mls @ 200 mls/hr IV Q24H [facility] Last Admin: 12/04/19 07:25 Dose: 200 mls/hr Documented by: Insulin Glargine (Lantus) 10 unit SUBCUT DAILY [facility] Last Admin: 12/04/19 07:41 Dose: 10 units Documented by: Insulin Human Lispro (Humalog) 10 unit SUBCUT TID [facility] Last Admin: 12/04/19 11:36 Dose: 10 units Documented by: Insulin Human Regular (Humulin R) 0 unit SUBCUT QID [facility]; Protocol Last Admin: 12/04/19 11:38 Dose: Not Given Documented by: Latanoprost (Xalatan 0.005% Ophth Soln) 0 ml EYEBOTH BEDTIME [facility] Last Admin: 12/03/19 19:58 Dose: 1 drop Documented by: Levofloxacin (Levaquin) 500 mg PO Q24H [facility] Last Admin: 12/04/19 07:23 Dose: 500 mg Documented by: Loperamide HCl (Imodium Ad) 2 mg PO Q6H PRN PRN Reason: Diarrhea Losartan Potassium (Cozaar) 50 mg PO DAILY [facility] Last Admin: 12/04/19 07:22 Dose: 50 mg Documented by: Neomycin/Polymyxin/Bacitracin (Triple Antibiotic Oint) 1 each TOP DAILY [facility] Last Admin: 12/04/19 07:24 Dose: 1 each Documented by: Nitroglycerin (Nitrostat) 0.4 mg SL ASDIRECTED PRN PRN Reason: Chest Pain Sodium Chloride (Saline Flush) 10 ml FLUSH ASDIRECTED PRN PRN Reason: Keep Vein Open Last Admin: 12/04/19 07:29 Dose: 10 ml Documented by: Discontinued Medications Albuterol/Ipratropium (Duoneb 3.0-0.5 Mg/3 Ml) 3 ml NEB ONETIME ONE Stop: 12/02/19 05:28 Last Admin: 12/02/19 06:09 Dose: 3 ml Documented by: Albuterol/Ipratropium (Duoneb 3.0-0.5 Mg/3 Ml) 3 ml NEB QID [facility] Clonidine HCl (Catapres) 0.1 mg PO ONETIME ONE Stop: 12/02/19 06:12 Last Admin: 12/02/19 06:16 Dose: 0.1 mg Documented by: Furosemide (Lasix) 40 mg IVPUSH DAILY [facility] Last Admin: 12/04/19 09:15 Dose: Not Given Documented by: Lidocaine/Epinephrine (Xylocaine 2% With Epinephrine 1:100,000) 20 ml INJECT ONETIME ONE Stop: 12/03/19 12:36 Last Admin: 12/03/19 13:10 Dose: 20 ml Documented by: Methylprednisolone Sodium Succinate (Solu-Medrol) 125 mg IVPUSH DAILY [facility] Last Admin: 12/04/19 09:16 Dose: Not Given Documented by: - Exam Quality Assessment: Supplemental Oxygen General: Alert, Oriented, Cooperative, No Acute Distress HEENT: Pupils Equal, Pupils Reactive, EOMI, Mucous Membr. Moist/[place] Neck: Supple Lungs: Normal Respiratory Effort, Wheezing (minimal wheezing bilaterally). No: Crackles, Rales, Rhonchi, Stridor Cardiovascular: Regular Rate, Regular Rhythm GI/Abdominal Exam: Normal Bowel Sounds, Soft, Non-Tender, No Distention (Female) Exam: Deferred Back Exam: No: CVA Tenderness (L), CVA Tenderness (R) Extremities: Normal Inspection, Non-Tender, No Pedal Edema, Normal Capillary Refill Skin: Warm, Dry, Other (incision on back healing well) Neurological: No New Focal Deficit Psy/Mental Status: Alert, Normal Affect Sepsis Event Note - Evaluation Sepsis Screening Result: No Definite Risk - Focused Exam Vital Signs: Vital Signs Temp Pulse Pulse Resp BP BP 12/04/19 12:00 36.6 C 69 98 H 134/63 12/04/19 07:22 72 150/75 H 12/04/19 07:14 36.6 C 72 24 H 150/75 H - Problem List & Annotations (1) SOB (shortness of breath) SNOMED Code(s): 079719491 Code(s): R06.02 - SHORTNESS OF BREATH Status: Acute Priority: High Current Visit: Yes Annotation/Comment:: Patient noted acute increased SOB two days ago. Possible COPD exacerbation given recent weather changes. She did feel better after getting neb in ER. Elevated proBNP but no evidence of acute obvious fluid overload on chest xray or exam. Has chronic elevated DDimer with several negative scans in past. Noted to sat 98-100% on her usual home O2 and no tachypnea/new chest pain. Discussed sending her to [facility] for VQ scan to officially rule out possibility of PE contributing to her initial complaint. She declines further testing for this at this time. No obvious pneumonia on xray, however she was noted to have elevated WBC and was empirically started on antibiotics by admitting provider. Also started on Solumedrol to target possible COPD exacerbation as well as cautious dose of lasix (given her chronic renal insufficiency) to address mild fluid overload. Patient feels that she is back to her usual baseline today. Is complaining that the Solumedrol is giving her insomnia. (2) COPD (chronic obstructive pulmonary disease) SNOMED Code(s): 20109816 Code(s): J44.9 - CHRONIC OBSTRUCTIVE PULMONARY DISEASE, UNSPECIFIED Status: Chronic Priority: Medium Current Visit: No Qualifiers: COPD type: emphysema Emphysema type: panlobular Qualified Code(s): J43.1 - Panlobular emphysema Annotation/Comment:: No recent fever or bronchitic type symptoms. Increased SOB two days ago as noted above. (3) Recurrent UTI SNOMED Code(s): 208014269 Code(s): N39.0 - URINARY TRACT INFECTION, SITE NOT SPECIFIED Status: Chronic Priority: Medium Current Visit: Yes Annotation/Comment:: Elevated WBC noted in urine along with some RBCs. Afebrile. No UTI symptoms. UC ordered however patient already had 24 hours of antibiotic coverage with Levaquin and Rocephin. Consider discharge on oral antibiotics for further coverage. Will repeat UA tomorow morning to see if UTI has cleared on the three days of antibiotic treatment received since admission. (4) Anemia SNOMED Code(s): 938662168 Code(s): D64.9 - ANEMIA, UNSPECIFIED Status: Chronic Priority: Low Current Visit: Yes Onset Date: 02/27/18 Qualifiers: Anemia type: due to chronic kidney disease Annotation/Comment:: Chronic. Contributions from both iron deficiency and chronic renal disease. No evidence of acute GI bleed based on history/ER exam. Stool negative for occult blood. Noted to have change from 11.1 to 9.5 yesterday. Stable at 9.5 today. May be due to dilutional effect secondary to IV fluids/antibiotic. (5) Glaucoma SNOMED Code(s): 01967632 Code(s): H40.9 - UNSPECIFIED GLAUCOMA Status: Chronic Priority: Low Current Visit: No Qualifiers: Glaucoma type: unspecified Laterality: unspecified laterality Qualified Code(s): H40.9 - Unspecified glaucoma Annotation/Comment:: Stable per history (6) Prolonged QT interval SNOMED Code(s): 230741261 Code(s): R94.31 - ABNORMAL ELECTROCARDIOGRAM [ECG] [EKG] Status: Acute Priority: Low Current Visit: Yes Annotation/Comment:: Prolonged QT noted on EKG. (7) Peripheral neuropathy SNOMED Code(s): 426958767 Code(s): G62.9 - POLYNEUROPATHY, UNSPECIFIED Status: Chronic Priority: Low Current Visit: No Qualifiers: Peripheral neuropathy type: polyneuropathy, unspecified Qualified Code(s): G62.9 - Polyneuropathy, unspecified Annotation/Comment:: Stable per history (8) CHF (congestive heart failure) SNOMED Code(s): 48976113 Code(s): I50.9 - HEART FAILURE, UNSPECIFIED Status: Chronic Priority: High Current Visit: No Onset Date: 02/21/17 Qualifiers: Heart failure type: unspecified Heart failure chronicity: acute on chronic Qualified Code(s): I50.9 - Heart failure, unspecified Annotation/Comment:: No chest pain or anginal type symptoms. No reported recent weight gain. History of cardiomegaly, previous SVT. Echocardiogram on 08/26/18 with an ejection fraction of 45% at that time. Note history of pulmonary hypertension. Elevated proBNP noted in ER without evidence of significant overload noted on chest xray/physical exam. Lasix to be discontinued today given further elevation of patient's BUN/Cr. Will continue oral Bumex (9) D-dimer, elevated SNOMED Code(s): 221873974 Code(s): R79.89 - OTHER SPECIFIED ABNORMAL FINDINGS OF BLOOD CHEMISTRY Status: Chronic Priority: High Current Visit: No Onset Date: 02/21/17 Annotation/Comment:: Patient noted to have elevated DDimer levels on all lab draws but one since 2017. Note previous distant negative CTA of the chest 2 in the past as above. No suspicion for DVTs lower legs on exam today. Patient's O2 sats 100% on [place] 1-2L and no increased RR observed. Low suspicion for PE at this time. Discussed potential for PE with patient, and testing required to rule it out (VQ scan). At this time she wants to wait given that she is feeling better, and did not want transfer to [facility] for a scan. Unable to perform CT study due to her renal function. (10) Coronary artery disease SNOMED Code(s): 34879610 Code(s): I25.10 - ATHSCL HEART DISEASE OF [place] CORONARY ARTERY W/O ANG PCTRS Status: Chronic Priority: Low Current Visit: Yes Onset Date: 02/22/17 Qualifiers: Coronary Disease-Associated Artery/Lesion type: [place] artery [place] vs. transplanted heart: [place] heart Associated angina: with stable angina Qualified Code(s): I25.118 - Atherosclerotic heart disease of [place] coronary artery with other forms of angina pectoris Annotation/Comment:: No chest pain/anginal complaints. No evidence of acute ischemia on EKG. Troponin negative. 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 Observing trends given anticipated elevation secondary to Solumedrol. (12) Diabetic nephropathy Status: Chronic Priority: Low Current Visit: No Qualifiers: Diabetes mellitus type: type 2 Qualified Code(s): E11.21 - Type 2 diabetes mellitus with diabetic nephropathy Annotation/Comment:: Observing closely. Increased BUN/Cr secondary to Lasix which was anticipated. Will d/c Lasix today and recheck renal function again tomorrow. (13) Hypertension SNOMED Code(s): 09076775 Code(s): I10 - ESSENTIAL (PRIMARY) HYPERTENSION Status: Chronic Priority: Medium Current Visit: No Qualifiers: Hypertension type: essential hypertension Qualified Code(s): I10 - Essential (primary) hypertension Annotation/Comment:: Systolic reading is usually elevated when checked. Observing trends. Continue to observe closely by her regular provider after discharge. (14) Osteoarthritis SNOMED Code(s): 867904771 Code(s): M19.90 - UNSPECIFIED OSTEOARTHRITIS, UNSPECIFIED SITE Status: Chronic Priority: High Current Visit: No Qualifiers: Osteoarthritis location: multiple joints Osteoarthritis type: primary Qualified Code(s): M89.49 - Other hypertrophic osteoarthropathy, multiple sites Annotation/Comment:: Stable by history. (15) Peptic reflux disease SNOMED Code(s): 779414169 Code(s): K21.9 - GASTRO-ESOPHAGEAL REFLUX DISEASE WITHOUT ESOPHAGITIS Status: Chronic Priority: Medium Current Visit: No Annotation/Comment:: Stable by history. (16) EIC (epidermal inclusion cyst) SNOMED Code(s): 555664808 Code(s): L72.0 - EPIDERMAL CYST Status: Acute Priority: Medium Current Visit: Yes Annotation/Comment:: Patient noted to have large EIC middle of upper back. Mildly irritated but not obviously acutely infected. Patient reported increasing discomfort/itching of site. Unable to comfortably lay back in bed. Because of this and concern for developing abscess the cyst was incised and cyst material and some of cyst wall removed. - Problem List Review Problem List Initiated/Reviewed/Updated: Yes - My Orders Last 24 Hours: My Active Orders 12/03/19 13:45 Bacitracin/Neomycin/Polymyxin [Triple Antibiotic Oint] 1 each TOP DAILY 12/03/19 14:58 Daily Weight [Height and Weight] [RC] DAILY 12/03/19 20:00 Communication Order [RC] Q12H 12/03/19 21:00 Insulin Regular, Human [HumuLIN R] See Protocol SUBCUT QID 12/04/19 08:00 Wound Care [RC] DAILY - Assessment Assessment:: as above - Plan Plan:: as above. Continue coverage for UTI. Continue to observe renal function and Hgb trends. Anticipate discharge home tomorrow if she remains stable/continues to improve, and Hgb/renal function remain stable. to assume patient's care in AM
[2019-12-04] MEDS ORDERED: Enoxaparin 40 MG/0.4 ML Syringe SUBCUT SCH (17:00)
[2019-12-04] MEDS: Carvedilol 12.5 MG Tab PO SCH (17:11)
[2019-12-04] MEDS: atorvaSTATin 40 MG Tab PO SCH (19:15)
[2019-12-04] MEDS: Latanoprost 0.005% Ophth Soln 2.5 ML Bottle EYEBOTH SCH (19:15)
[2019-12-05] MEDS: Carvedilol 25 MG Tab PO SCH (07:42)
[2019-12-05] MEDS: Losartan 50 MG Tab PO SCH (07:42)
[2019-12-05] MEDS: Aspirin 81 MG Tab.EC PO SCH (07:42)
[2019-12-05] MEDS: Levofloxacin 500 MG Tab PO SCH (07:42)
[2019-12-05] MEDS: Bumetanide 1 MG Tab PO SCH (07:43)
[2019-12-05] MEDS: cefTRIAXone 1 GM in Sodium Chloride 0.9% 100 ML IV SCH (07:43)
[2019-12-05] MEDS: Bacitracin/Neomycin/Polymyxin B Oint 0.9 GM U/D Packet TOP SCH (07:43)
[2019-12-05] MEDS: Sodium Chloride 0.9% 10 ML Syringe FLUSH PRN ×2 (07:43→19:22)
[2019-12-05] MEDS: Albuterol/Ipratropium 4 GM Inhalation Spray INH SCH ×4 (07:45→19:33)
[2019-12-05] MEDS: Insulin Regular, Human 100 Units/ML 3 ML Vial SUBCUT SCH ×4 (07:45→21:42)
[2019-12-05] MEDS: Ferrous Sulfate 325 MG Tab PO SCH (07:45)
[2019-12-05] MEDS: Insulin Lispro 100 Units/ML 3 ML Vial SUBCUT SCH ×3 (07:46→19:30)
[2019-12-05] MEDS: Dorzolamide 2% Ophth Soln 10 ML Bottle EYEBOTH SCH ×2 (07:47→19:29)
[2019-12-05] MEDS: Insulin Glarg,Human.Rec.Analog 100 Unit/ML SUBCUT SCH (07:48)
--- NOTE | 2019-12-05 10:27 | PCM.PN ---
- General Info Date of Service: 12/05/19 Admission Dx/Problem (Free Text): 1. Left lower lobe pneumonia 2. COPD 3. CHF 4. Hypertension Functional Status: Reports: Pain Controlled, Tolerating Diet, Ambulating, Urinating, Incentive Spirometry. Denies: New Symptoms - Review of Systems General: Reports: No Symptoms. Denies: Fever, Weakness, Fatigue, Malaise, Chills, Night Sweats, Appetite (Adequate) HEENT: Reports: No Symptoms Pulmonary: Reports: Shortness of Breath. Denies: Pleuritic Chest Pain, Cough, Sputum, Hemoptysis, Wheezing Cardiovascular: Reports: Dyspnea on Exertion. Denies: Chest Pain, Palpitations, Orthopnea, Edema, Lightheadedness Gastrointestinal: Reports: No Symptoms, Other (Normal bowel movement this morning). Denies: Abdominal Pain, Constipation, Decreased Appetite, Difficulty Swallowing, Flatus, Hematochezia, Melena, Vomiting Genitourinary: Reports: No Symptoms. Denies: Dysuria, Frequency, Burning, Hematuria, Retention, Flank Pain Musculoskeletal: Reports: No Symptoms. Denies: Neck Pain, Shoulder Pain, Arm Pain, Back Pain, Leg Pain Skin: Reports: Other (Mild nonspecific burning at excision site of epidermal inclusion cyst). Denies: Diaphoresis, Bruising, Pruritis, Rash Neurological: Reports: No Symptoms. Denies: Confusion, Numbness, Paresthesia, Tingling, Difficulty Walking, Weakness Psychiatric: Reports: No Symptoms. Denies: Confusion, Depression, Anxiety, Agitation, Cravings, Hallucinations - Patient Data Vitals - Most Recent: Last Vital Signs Temp 36.2 C 12/05/19 06:59 Pulse 69 12/05/19 07:42 Resp 22 H 12/05/19 06:59 BP 116/72 12/05/19 07:42 Pulse Ox 98 12/05/19 06:59 Vital Signs - 24 hr 12/04/19 12/04/19 12/04/19 12:00 16:00 17:11 Temperature [ 36.6 C 36.4 C Temporal] Pulse, 75 Peripheral Pulse, 69 Peripheral [ Left Pulse Oximetry] Respiratory 20 20 Rate Blood Pressure 151/75 H Blood Pressure 134/63 [Left Upper Arm ] Blood Pressure [Right Upper Arm] O2 Sat by Pulse 98 98 Oximetry 12/04/19 12/05/19 12/05/19 19:16 06:59 07:42 Temperature [ 36.3 C 36.2 C Temporal] Pulse, 69 Peripheral Pulse, 69 69 Peripheral [ Left Pulse Oximetry] Respiratory 14 22 H Rate Blood Pressure 116/72 Blood Pressure 140/60 [Left Upper Arm ] Blood Pressure 116/72 [Right Upper Arm] O2 Sat by Pulse 99 98 Oximetry Weight - Most Recent: 84.141 kg I&O - Last 24 Hours: Intake & Output 12/04/19 12/05/19 12/05/19 22:59 06:59 14:59 Intake Total 240 Output Total 200 400 Balance -200 -160 Imaging Impressions - Last 24 Hours: Chest x-ray, PA and lateral, shows somewhat poor inspiratory film with moderate COPD changes with probable mild CHF. Moderately elevated right hemidiaphragm with mild to moderate cardiomegaly and prominence of the proximal aortic arch. No pneumothorax. Pulmonary infiltrates difficult to assess secondary to CHF as above. Lab Results Last 24 Hours: Laboratory Results - last 24 hr 12/04/19 12/04/19 12/04/19 Range/Units 11:06 16:48 21:04 WBC (4.0-10.2) K/uL RBC (3.77-5.09) M/uL Hgb (11.7-15.5) g/dL Hct (34.0-46.0) % MCV (84.0-98.0) fL MCH (28.2-33.3) pg MCHC (31.7-36.0) g/dL RDW (11.2-14.1) % Plt Count (150-350) K/uL Neut % (Auto) (45.0-80.0) % Lymph % (Auto) (10.0-50.0) % Hill % (Auto) (2.0-14.0) % Eos % (Auto) (0.0-5.0) % Baso % (Auto) (0.0-2.0) % Neut # (Auto) (1.40-7.00) K/uL Lymph # (Auto) (0.50-3.50) K/uL Hill # (Auto) (0.00-1.00) K/uL Eos # (Auto) (0.00-0.50) K/uL Baso # (Auto) (0.00-0.20) K/uL Sodium (136-145) mmol/L Potassium (3.5-5.1) mmol/L Chloride (98-107) mmol/L Carbon Dioxide (21.0-32.0) mmol/L BUN (7-18) mg/dL Creatinine (0.51-1.17) mg/dL Est Cr Clr Drug Dosing mL/min Estimated GFR (MDRD) mL/min Glucose (74-106) mg/dL POC Glucose 271 H* 136 H 172 H (65-110) mg/dl Calcium (8.5-10.1) mg/dL Creatine Kinase (26-308) U/L Creatine Kinase Index (0.0-2.5) % CK-MB (CK-2) (0.00-3.60) ng/mL Troponin I (0.000-0.056) ng/mL NT-Pro-B Natriuret Pep (0-125) pg/mL Specimen Type Urine Color Urine Appearance Urine pH (5.0-9.0) Ur Specific York (1.005-1.030) Urine Protein (NEGATIVE) mg/dL Urine Glucose (UA) (NEGATIVE) mg/dL Urine Ketones (NEGATIVE) mg/dL Urine Occult Blood (NEGATIVE) Urine Nitrite (NEGATIVE) Urine Bilirubin (NEGATIVE) Urine Urobilinogen (0.2-1.0) E.U./dL Ur Leukocyte Esterase (NEGATIVE) Urine RBC /HPF Urine WBC /HPF Ur Epithelial Cells /LPF Urine Bacteria (NONE TO FEW) /HPF 12/05/19 12/05/19 12/05/19 Range/Units 06:58 06:58 06:58 WBC 12.8 H (4.0-10.2) K/uL RBC 3.35 L (3.77-5.09) M/uL Hgb 9.5 L (11.7-15.5) g/dL Hct 30.9 L (34.0-46.0) % MCV 92.2 (84.0-98.0) fL MCH 28.4 (28.2-33.3) pg MCHC 30.7 L (31.7-36.0) g/dL RDW 13.6 (11.2-14.1) % Plt Count 180 (150-350) K/uL Neut % (Auto) 70.6 (45.0-80.0) % Lymph % (Auto) 19.6 (10.0-50.0) % Hill % (Auto) 9.5 (2.0-14.0) % Eos % (Auto) 0.2 (0.0-5.0) % Baso % (Auto) 0.1 (0.0-2.0) % Neut # (Auto) 9.01 H (1.40-7.00) K/uL Lymph # (Auto) 2.51 (0.50-3.50) K/uL Hill # (Auto) 1.22 H (0.00-1.00) K/uL Eos # (Auto) 0.03 (0.00-0.50) K/uL Baso # (Auto) 0.01 (0.00-0.20) K/uL Sodium 143 (136-145) mmol/L Potassium 3.6 (3.5-5.1) mmol/L Chloride 108 H (98-107) mmol/L Carbon Dioxide 30.0 (21.0-32.0) mmol/L BUN 58 H (7-18) mg/dL Creatinine 1.80 H (0.51-1.17) mg/dL Est Cr Clr Drug Dosing 22.04 mL/min Estimated GFR (MDRD) 27 mL/min Glucose 163 H (74-106) mg/dL POC Glucose (65-110) mg/dl Calcium 7.8 L (8.5-10.1) mg/dL Creatine Kinase 72 (26-308) U/L Creatine Kinase Index 1.8 (0.0-2.5) % CK-MB (CK-2) 1.30 (0.00-3.60) ng/mL Troponin I 0.011 (0.000-0.056) ng/mL NT-Pro-B Natriuret Pep 9942 H (0-125) pg/mL Specimen Type Urine Color Urine Appearance Urine pH (5.0-9.0) Ur Specific York (1.005-1.030) Urine Protein (NEGATIVE) mg/dL Urine Glucose (UA) (NEGATIVE) mg/dL Urine Ketones (NEGATIVE) mg/dL Urine Occult Blood (NEGATIVE) Urine Nitrite (NEGATIVE) Urine Bilirubin (NEGATIVE) Urine Urobilinogen (0.2-1.0) E.U./dL Ur Leukocyte Esterase (NEGATIVE) Urine RBC /HPF Urine WBC /HPF Ur Epithelial Cells /LPF Urine Bacteria (NONE TO FEW) /HPF 12/05/19 12/05/19 Range/Units 07:00 07:20 WBC (4.0-10.2) K/uL RBC (3.77-5.09) M/uL Hgb (11.7-15.5) g/dL Hct (34.0-46.0) % MCV (84.0-98.0) fL MCH (28.2-33.3) pg MCHC (31.7-36.0) g/dL RDW (11.2-14.1) % Plt Count (150-350) K/uL Neut % (Auto) (45.0-80.0) % Lymph % (Auto) (10.0-50.0) % Hill % (Auto) (2.0-14.0) % Eos % (Auto) (0.0-5.0) % Baso % (Auto) (0.0-2.0) % Neut # (Auto) (1.40-7.00) K/uL Lymph # (Auto) (0.50-3.50) K/uL Hill # (Auto) (0.00-1.00) K/uL Eos # (Auto) (0.00-0.50) K/uL Baso # (Auto) (0.00-0.20) K/uL Sodium (136-145) mmol/L Potassium (3.5-5.1) mmol/L Chloride (98-107) mmol/L Carbon Dioxide (21.0-32.0) mmol/L BUN (7-18) mg/dL Creatinine (0.51-1.17) mg/dL Est Cr Clr Drug Dosing mL/min Estimated GFR (MDRD) mL/min Glucose (74-106) mg/dL POC Glucose 166 H (65-110) mg/dl Calcium (8.5-10.1) mg/dL Creatine Kinase (26-308) U/L Creatine Kinase Index (0.0-2.5) % CK-MB (CK-2) (0.00-3.60) ng/mL Troponin I (0.000-0.056) ng/mL NT-Pro-B Natriuret Pep (0-125) pg/mL Specimen Type Urinblad Urine Color Yellow Urine Appearance Clear Urine pH 6.0 (5.0-9.0) Ur Specific York 1.025 (1.005-1.030) Urine Protein >=300 H (NEGATIVE) mg/dL Urine Glucose (UA) 100 H (NEGATIVE) mg/dL Urine Ketones Negative (NEGATIVE) mg/dL Urine Occult Blood Small H (NEGATIVE) Urine Nitrite Negative (NEGATIVE) Urine Bilirubin Negative (NEGATIVE) Urine Urobilinogen 0.2 (0.2-1.0) E.U./dL Ur Leukocyte Esterase Negative (NEGATIVE) Urine RBC 30-40 H /HPF Urine WBC 10-20 H /HPF Ur Epithelial Cells Moderate H /LPF Urine Bacteria Few (NONE TO FEW) /HPF Pool Results Last 24 Hours: Microbiology 12/03/19 14:57 Stool Occult Blood (POOL) - Final Stool / Feces NEGATIVE OCCULT BLOOD REFERENCE RANGE: NEGATIVE 12/03/19 10:50 Urine Culture - Preliminary Urine, Voided NO GROWTH AFTER 1 DAY Med Orders - Current: Current Medications Acetaminophen (Tylenol) 650 mg PO Q4H PRN PRN Reason: analgesia/fever Last Admin: 12/03/19 16:54 Dose: 650 mg Documented by: Albuterol (Proair Hfa) 1 gm INH Q2H PRN PRN Reason: Shortness of Breath Albuterol/Ipratropium (Combivent Respimat) 1 gm INH QID [facility] Last Admin: 12/05/19 07:45 Dose: 2 puff Documented by: Aspirin (Halfprin) 81 mg PO DAILY [facility] Last Admin: 12/05/19 07:42 Dose: 81 mg Documented by: Atorvastatin Calcium (Lipitor) 40 mg PO BEDTIME [facility] Last Admin: 12/04/19 19:15 Dose: 40 mg Documented by: Bisacodyl (Dulcolax) 10 mg RECTAL DAILY PRN PRN Reason: Constipation Carvedilol (Coreg) 12.5 mg PO QPM [facility] Last Admin: 12/04/19 17:11 Dose: 12.5 mg Documented by: Carvedilol (Coreg) 25 mg PO QAM [facility] Last Admin: 12/05/19 07:42 Dose: 25 mg Documented by: Dorzolamide HCl (Trusopt 2% Ophth Soln) 1 ml EYEBOTH BID [facility] Last Admin: 12/05/19 07:47 Dose: 1 drop Documented by: Ferrous Sulfate (Ferrous Sulfate) 325 mg PO DAILY [facility] Last Admin: 12/05/19 07:45 Dose: 325 mg Documented by: Furosemide (Lasix) 40 mg IVPUSH Q8H [facility] Insulin Glargine (Lantus) 10 unit SUBCUT DAILY [facility] Last Admin: 12/05/19 07:48 Dose: 10 units Documented by: Insulin Human Lispro (Humalog) 10 unit SUBCUT TID [facility] Last Admin: 12/05/19 07:46 Dose: 10 units Documented by: Insulin Human Regular (Humulin R) 0 unit SUBCUT QIDACANDBED [facility]; Protocol Last Admin: 12/05/19 07:45 Dose: Not Given Documented by: Latanoprost (Xalatan 0.005% Ophth Soln) 0 ml EYEBOTH BEDTIME [facility] Last Admin: 12/04/19 19:15 Dose: 1 drop Documented by: Levofloxacin (Levaquin) 500 mg PO Q24H [facility] Last Admin: 12/05/19 07:42 Dose: 500 mg Documented by: Loperamide HCl (Imodium Ad) 2 mg PO Q6H PRN PRN Reason: Diarrhea Losartan Potassium (Cozaar) 50 mg PO DAILY [facility] Last Admin: 12/05/19 07:42 Dose: 50 mg Documented by: Neomycin/Polymyxin/Bacitracin (Triple Antibiotic Oint) 1 each TOP DAILY [facility] Last Admin: 12/05/19 07:43 Dose: 1 each Documented by: Nitrofurantoin Macrocrystals (Macrobid) 100 mg PO DAILY [facility] Nitroglycerin (Nitrostat) 0.4 mg SL ASDIRECTED PRN PRN Reason: Chest Pain Potassium Chloride (Klor-Con M20) 20 meq PO TID [facility] Sodium Chloride (Saline Flush) 10 ml FLUSH ASDIRECTED PRN PRN Reason: Keep Vein Open Last Admin: 12/05/19 07:43 Dose: 10 ml Documented by: Discontinued Medications Albuterol/Ipratropium (Duoneb 3.0-0.5 Mg/3 Ml) 3 ml NEB ONETIME ONE Stop: 12/02/19 05:28 Last Admin: 12/02/19 06:09 Dose: 3 ml Documented by: Albuterol/Ipratropium (Duoneb 3.0-0.5 Mg/3 Ml) 3 ml NEB QID [facility] Bumetanide (Bumex) 1 mg PO DAILY [facility] Last Admin: 12/05/19 07:43 Dose: 1 mg Documented by: Clonidine HCl (Catapres) 0.1 mg PO ONETIME ONE Stop: 12/02/19 06:12 Last Admin: 12/02/19 06:16 Dose: 0.1 mg Documented by: Enoxaparin Sodium (Lovenox) 40 mg SUBCUT DAILY [facility] Last Admin: 12/04/19 19:52 Dose: Not Given Documented by: Furosemide (Lasix) 40 mg IVPUSH DAILY [facility] Last Admin: 12/04/19 09:15 Dose: Not Given Documented by: Ceftriaxone Sodium 1 gm/ (Sodium Chloride) 100 mls @ 200 mls/hr IV Q24H [facility] Last Admin: 12/05/19 07:43 Dose: 200 mls/hr Documented by: Insulin Human Regular (Humulin R) 0 unit SUBCUT QID [facility]; Protocol Last Admin: 12/04/19 11:38 Dose: Not Given Documented by: Lidocaine/Epinephrine (Xylocaine 2% With Epinephrine 1:100,000) 20 ml INJECT ONETIME ONE Stop: 12/03/19 12:36 Last Admin: 12/03/19 13:10 Dose: 20 ml Documented by: Methylprednisolone Sodium Succinate (Solu-Medrol) 125 mg IVPUSH DAILY [facility] Last Admin: 12/04/19 09:16 Dose: Not Given Documented by: - Exam Quality Assessment: Supplemental Oxygen (Chronic O2 supplementation), DVT Prophylaxis (However no subcu Lovenox secondary to progressive anemia). No: Central Line/PICC, Urine Catheter, Skin Breakdown, Restraints General: Alert, Oriented, Cooperative, No Acute Distress HEENT: Pupils Equal, Pupils Reactive, EOMI, Mucous Membr. Moist/Broussard. No: Scleral Icterus Neck: Supple, Trachea Midline, No JVD, No Thyromegaly, Carotid Bruit (Mild bilateral carotid bruits). No: Lymphadenopathy Lungs: Normal Respiratory Effort, Decreased Breath Sounds (Right day secondary to elevated hemidiaphragm), Rales (Mild bilateral basilar). No: Rhonchi, Rub, Wheezing Cardiovascular: Regular Rate, Regular Rhythm, No Murmurs. No: Gallops, Rubs GI/Abdominal Exam: Normal Bowel Sounds, Soft, Non-Tender, No Organomegaly, No Distention, No Abnormal Bruit, No Mass, Other (Obese). No: Guarding (Female) Exam: Deferred Back Exam: Full Range of Motion, Other (Moderate scoliosis). No: CVA Tenderness (L), CVA Tenderness (R), Muscle Spasm, Paraspinal Tenderness, Vertebral Tenderness Extremities: Normal Inspection, Normal Range of Motion, Non-Tender, No Pedal Edema, Normal Capillary Refill. No: Charlee's Sign Peripheral Pulses: 2+: Brachial (L), Brachial (R), Dorsalis Pedis (L) Skin: Warm, Dry, Cool, Other (Incision site in the mid back region appears normal with no significant drainage). No: Ecchymosis Wound/Incisions: Healing Well, Dressing Dry and Intact Neurological: No New Focal Deficit Psy/Mental Status: Alert, Normal Affect, Normal Mood. No: Agitated, Hallucinations, Withdrawal Symptoms Sepsis Event Note - Evaluation Sepsis Screening Result: Severe Sepsis Risk - Focused Exam Vital Signs: Vital Signs Temp Pulse Pulse Resp BP BP Pulse Ox 12/05/19 07:42 69 116/72 12/05/19 06:59 36.2 C 69 22 H 116/72 98 - Problem List & Annotations (1) CHF (congestive heart failure) SNOMED Code(s): 37472080 Code(s): I50.9 - HEART FAILURE, UNSPECIFIED Status: Chronic Priority: High Current Visit: Yes Onset Date: 02/21/17 Qualifiers: Heart failure type: unspecified Heart failure chronicity: acute on chronic Qualified Code(s): I50.9 - Heart failure, unspecified Annotation/Comment:: No chest pain or anginal type symptoms. No reported recent weight gain. History of cardiomegaly, previous SVT. Echocardiogram on 08/26/18 with an ejection fraction of 45% at that time. Note history of pulmonary hypertension. Elevated proBNP noted in ER without evidence of significant overload noted on chest xray/physical exam. Lasix discontinued on 12/03 secondary to progressive creatinine elevation, however note persistent moderate CHF by chest x-ray on 12/04. Previously initiated Bumex will be changed back to Lasix with continued close observation of her renal status. (2) COPD (chronic obstructive pulmonary disease) SNOMED Code(s): 77178049 Code(s): J44.9 - CHRONIC OBSTRUCTIVE PULMONARY DISEASE, UNSPECIFIED Status: Chronic Priority: Medium Current Visit: Yes Qualifiers: COPD type: emphysema Emphysema type: panlobular Qualified Code(s): J43.1 - Panlobular emphysema Annotation/Comment:: No recent fever or bronchitic type symptoms. Increased SOB prior to admission likely secondary to her CHF with initial suspicion of left lower lobe pneumonia. IV Rocephin and IV Levaquin were initiated on admission with discontinuation of IV Rocephin on 12/04 and continuation of IV Levaquin for now. Secondary to probable UTI oral Macrobid therapy was initiated on 12/04. Note persistent leukocytosis on 12/04 likely secondary to previous IV Solu-Medrol therapy. Note stable O2 saturations with patient back to her normal baseline of 2 L/min by nasal cannula. (3) UTI (urinary tract infection) SNOMED Code(s): 00209163 Code(s): N39.0 - URINARY TRACT INFECTION, SITE NOT SPECIFIED Status: Acute Priority: High Current Visit: Yes Onset Date: ~12/03/19 Qualifiers: Urinary tract infection type: acute cystitis Hematuria presence: with hematuria Qualified Code(s): N30.01 - Acute cystitis with hematuria Annotation/Comment:: Initial urine culture was negative. Note IV Rocephin and IV Levaquin therapy as above. Repeat urine sample was collected today, still showing a probable infection. Culture and sensitivity will be reordered. Change in antibiotic therapy as above. (4) Anemia SNOMED Code(s): 133125346 Code(s): D64.9 - ANEMIA, UNSPECIFIED Status: Chronic Priority: Low Current Visit: Yes Onset Date: 02/27/18 Qualifiers: Anemia type: due to chronic kidney disease Chronic kidney disease stage: stage 3 (moderate) Qualified Code(s): N18.3 - Chronic kidney disease, stage 3 (moderate); D63.1 - Anemia in chronic kidney disease Annotation/Comment:: Chronic. Contributions from both iron deficiency and chronic renal disease. No evidence of acute GI bleed based on history/ER exam. Stool negative for occult blood. Noted to have change from 11.1 to 9.5 on 12/02 with stable hemoglobin throughout the remainder of the hospitalization. Probable dilutional effect secondary to IV fluids/antibiotics with TIBC panel conducted on 12/06/2019. (5) Diabetes mellitus SNOMED Code(s): 00321393 Code(s): E11.9 - TYPE 2 DIABETES MELLITUS WITHOUT COMPLICATIONS Status: Chronic Priority: Medium Current Visit: Yes Qualifiers: Diabetes mellitus type: type 2 Diabetes mellitus residential insulin use: with termite control service representative use Diabetes mellitus complication status: with kidney complications Diabetes mellitus complication detail: with chronic kidney disease Chronic kidney disease stage: stage 3 (moderate) Qualified Code(s): E11.22 - Type 2 diabetes mellitus with diabetic chronic kidney disease; N18.3 - Chronic kidney disease, stage 3 (moderate); Z79.4 - terminologist (current) use of insulin Annotation/Comment:: Patient is on sliding scale. Accu-Cheks improved after discontinuation of IV Solu-Medrol. (6) Hypertension SNOMED Code(s): 82616596 Code(s): I10 - ESSENTIAL (PRIMARY) HYPERTENSION Status: Chronic Priority: Medium Current Visit: No Qualifiers: Hypertension type: essential hypertension Qualified Code(s): I10 - Essential (primary) hypertension Annotation/Comment:: Systolic reading is usually elevated when checked. Observing trends. Continue to observe closely by her regular provider after discharge. (7) Hypocalcemia SNOMED Code(s): 5040640 Code(s): E83.51 - HYPOCALCEMIA Status: Chronic Priority: Medium Current Visit: No Onset Date: 03/01/18 Annotation/Comment:: OTC Tums as calcium supp lementation and GI prophylaxis resumed on 12/05/2019. Continue to observe closely by regular provider. (8) EIC (epidermal inclusion cyst) SNOMED Code(s): 953128892 Code(s): L72.0 - EPIDERMAL CYST Status: Acute Priority: Medium Current Visit: Yes Onset Date: ~12/03/19 Annotation/Comment:: Patient noted to have large EIC middle of upper back. Mildly irritated but not obviously acutely infected. Patient reported increasing discomfort/itching of site. Unable to comfortably lay back in bed. Because of this and concern for developing abscess the cyst was incised and cyst material and some of cyst wall removed. - Problem List Review Problem List Initiated/Reviewed/Updated: Yes - My Orders Last 24 Hours: My Active Orders 12/05/19 09:21 Chest 2V [CR] Urgent 12/05/19 10:30 Furosemide [Lasix] 40 mg IVPUSH Q8H Nitrofurantoin Hill/Macrocryst [Macrobid] 100 mg PO DAILY 12/05/19 12:00 Potassium Chloride [Klor-Con M20] 20 meq PO TID 12/06/19 05:11 BASIC METABOLIC PANEL,BMP [CHEM] Routine CBC WITH AUTO DIFF [HEME] Routine CK W CKMB [CHEM] Routine IRON/TIBC [CHEM] Routine PRO B-TYPE NATRIUR PEPT,BNPPRO [CHEM] Routine TROPONIN I [CHEM] Routine - Assessment Assessment:: as above - Plan Plan:: as above. Extensive precautions were given to the patient, who is in agreement with the treatment plan. The patient will require about -1-2days of inpatient/acute care secondary to multiple health problems as above.
[2019-12-05] MEDS ORDERED: Furosemide 40 MG/4 ML VIAL IVPUSH SCH (10:30)
[2019-12-05] MEDS: Nitrofurantoin Monohydrate/Macrocrystalline 100 MG Cap PO SCH (12:17)
[2019-12-05] MEDS: Potassium Chloride 20 MEQ Tab.ER PO SCH ×2 (12:17→19:20)
[2019-12-05] MEDS: Carvedilol 12.5 MG Tab PO SCH (19:20)
[2019-12-05] MEDS: atorvaSTATin 40 MG Tab PO SCH (19:21)
[2019-12-05] MEDS: Calcium Carbonate 750 MG Tab.Chew PO SCH (19:21)
[2019-12-05] MEDS: Furosemide 40 MG/4 ML VIAL IVPUSH SCH (19:22)
[2019-12-05] MEDS: Latanoprost 0.005% Ophth Soln 2.5 ML Bottle EYEBOTH SCH (19:33)
[2019-12-06] MEDS: Insulin Regular, Human 100 Units/ML 3 ML Vial SUBCUT SCH ×4 (07:27→20:10)
[2019-12-06] MEDS: Losartan 50 MG Tab PO SCH ×2 (07:28→17:07)
[2019-12-06] MEDS: Potassium Chloride 20 MEQ Tab.ER PO SCH ×2 (07:28→17:09)
[2019-12-06] MEDS: Ferrous Sulfate 325 MG Tab PO SCH ×2 (07:28→17:06)
[2019-12-06] MEDS: Levofloxacin 500 MG Tab PO SCH (07:28)
[2019-12-06] MEDS: Nitrofurantoin Monohydrate/Macrocrystalline 100 MG Cap PO SCH (07:29)
[2019-12-06] MEDS: Aspirin 81 MG Tab.EC PO SCH (07:29)
[2019-12-06] MEDS: Bacitracin/Neomycin/Polymyxin B Oint 0.9 GM U/D Packet TOP SCH (07:29)
[2019-12-06] MEDS: Furosemide 40 MG/4 ML VIAL IVPUSH SCH ×2 (07:29→17:06)
[2019-12-06] MEDS: Albuterol/Ipratropium 4 GM Inhalation Spray INH SCH ×4 (07:29→20:10)
[2019-12-06] MEDS: Carvedilol 25 MG Tab PO SCH (07:29)
[2019-12-06] MEDS: Insulin Lispro 100 Units/ML 3 ML Vial SUBCUT SCH ×3 (07:30→17:08)
[2019-12-06] MEDS: Insulin Glarg,Human.Rec.Analog 100 Unit/ML SUBCUT SCH (07:32)
[2019-12-06] MEDS: Dorzolamide 2% Ophth Soln 10 ML Bottle EYEBOTH SCH ×2 (07:33→17:09)
--- NOTE | 2019-12-06 11:29 | PCM.PN ---
- General Info Date of Service: 12/06/19 Admission Dx/Problem (Free Text): 1. Left lower lobe pneumonia 2. COPD 3. CHF 4. Hypertension Functional Status: Reports: Pain Controlled, Tolerating Diet, Ambulating, Urinating. Denies: New Symptoms, Incentive Spirometry Pain Score: 0 - Review of Systems General: Reports: No Symptoms. Denies: Fever, Weakness, Fatigue, Malaise, Chills, Night Sweats, Appetite HEENT: Reports: No Symptoms. Denies: Ear Pain, Eye Pain, Headaches, Post Nasal Drip, Sinus Congestion, Sore Throat, Rhinitis, Visual Changes Pulmonary: Reports: No Symptoms. Denies: Shortness of Breath, Pleuritic Chest Pain, Cough, Sputum, Hemoptysis, Wheezing Cardiovascular: Reports: No Symptoms. Denies: Chest Pain, Palpitations, Dyspnea on Exertion, Orthopnea, Edema, Lightheadedness Gastrointestinal: Reports: No Symptoms, Other (Normal bowel movement earlier this morning). Denies: Abdominal Pain, Constipation, Decreased Appetite, Diarrhea, Flatus, Hematochezia, Melena, Nausea, Vomiting Genitourinary: Reports: No Symptoms. Denies: Dysuria, Frequency, Burning, Pain, Urgency, Hematuria, Retention, Flank Pain Musculoskeletal: Reports: No Symptoms. Denies: Neck Pain, Shoulder Pain, Back Pain, Leg Pain Skin: Reports: No Symptoms. Denies: Diaphoresis, Bruising, Pruritis, Rash Neurological: Reports: No Symptoms. Denies: Confusion, Numbness, Paresthesia, Tingling, Weakness Psychiatric: Reports: No Symptoms. Denies: Confusion, Depression, Anxiety, Agitation, Hallucinations - Patient Data Vitals - Most Recent: Last Vital Signs Temp 36.3 C 12/06/19 07:45 Pulse 65 12/06/19 07:45 Resp 16 12/06/19 07:45 BP 150/70 H 12/06/19 07:45 Pulse Ox 99 12/06/19 07:45 Vital Signs - 24 hr 12/05/19 12/05/19 12/05/19 12:00 15:23 19:18 Temperature [ 36.1 C 36.0 C L 36.7 C Temporal] Pulse, Peripheral Pulse, 68 76 73 Peripheral [ Left Pulse Oximetry] Respiratory 22 H 22 H 22 H Rate Blood Pressure Blood Pressure 152/76 H [Left Upper Arm ] Blood Pressure 141/72 H 141/67 H [Right Upper Arm] O2 Sat by Pulse 100 100 100 Oximetry 12/05/19 12/06/19 12/06/19 19:20 04:00 07:28 Temperature [ 36.8 C Temporal] Pulse, 73 Peripheral Pulse, 74 Peripheral [ Left Pulse Oximetry] Respiratory 22 H Rate Blood Pressure 152/76 H 150/70 H Blood Pressure [Left Upper Arm ] Blood Pressure 134/94 H [Right Upper Arm] O2 Sat by Pulse 96 Oximetry 12/06/19 12/06/19 07:29 07:45 Temperature [ 36.3 C Temporal] Pulse, 65 Peripheral Pulse, 65 Peripheral [ Left Pulse Oximetry] Respiratory 16 Rate Blood Pressure 150/70 H Blood Pressure 150/70 H [Left Upper Arm ] Blood Pressure [Right Upper Arm] O2 Sat by Pulse 99 Oximetry Weight - Most Recent: 83.597 kg I&O - Last 24 Hours: Intake & Output 12/05/19 12/06/19 12/06/19 22:59 06:59 14:59 Intake Total 200 200 600 Output Total 300 1200 Balance -100 -1000 600 Imaging Impressions - Last 24 Hours: None Lab Results Last 24 Hours: Laboratory Results - last 24 hr 12/05/19 12/05/19 12/05/19 Range/Units 11:41 17:19 20:33 WBC (4.0-10.2) K/uL RBC (3.77-5.09) M/uL Hgb (11.7-15.5) g/dL Hct (34.0-46.0) % MCV (84.0-98.0) fL MCH (28.2-33.3) pg MCHC (31.7-36.0) g/dL RDW (11.2-14.1) % Plt Count (150-350) K/uL Neut % (Auto) (45.0-80.0) % Lymph % (Auto) (10.0-50.0) % Henderson % (Auto) (2.0-14.0) % Eos % (Auto) (0.0-5.0) % Baso % (Auto) (0.0-2.0) % Neut # (Auto) (1.40-7.00) K/uL Lymph # (Auto) (0.50-3.50) K/uL Henderson # (Auto) (0.00-1.00) K/uL Eos # (Auto) (0.00-0.50) K/uL Baso # (Auto) (0.00-0.20) K/uL Sodium (136-145) mmol/L Potassium (3.5-5.1) mmol/L Chloride (98-107) mmol/L Carbon Dioxide (21.0-32.0) mmol/L BUN (7-18) mg/dL Creatinine (0.51-1.17) mg/dL Est Cr Clr Drug Dosing mL/min Estimated GFR (MDRD) mL/min Glucose (74-106) mg/dL POC Glucose 125 H 159 H 202 H (65-110) mg/dl Calcium (8.5-10.1) mg/dL Magnesium (1.8-2.4) mg/dL Iron (50-175) ug/dL TIBC (250-450) ug/dL % Saturation Creatine Kinase (26-308) U/L Creatine Kinase Index (0.0-2.5) % CK-MB (CK-2) (0.00-3.60) ng/mL Troponin I (0.000-0.056) ng/mL NT-Pro-B Natriuret Pep (0-125) pg/mL 12/06/19 12/06/19 12/06/19 Range/Units 07:20 07:21 07:21 WBC 8.7 (4.0-10.2) K/uL RBC 3.48 L (3.77-5.09) M/uL Hgb 9.8 L (11.7-15.5) g/dL Hct 32.5 L (34.0-46.0) % MCV 93.4 (84.0-98.0) fL MCH 28.2 (28.2-33.3) pg MCHC 30.2 L (31.7-36.0) g/dL RDW 13.8 (11.2-14.1) % Plt Count 174 (150-350) K/uL Neut % (Auto) 62.4 (45.0-80.0) % Lymph % (Auto) 25.8 (10.0-50.0) % Henderson % (Auto) 8.9 (2.0-14.0) % Eos % (Auto) 2.8 (0.0-5.0) % Baso % (Auto) 0.1 (0.0-2.0) % Neut # (Auto) 5.44 (1.40-7.00) K/uL Lymph # (Auto) 2.25 (0.50-3.50) K/uL Henderson # (Auto) 0.78 (0.00-1.00) K/uL Eos # (Auto) 0.24 (0.00-0.50) K/uL Baso # (Auto) 0.01 (0.00-0.20) K/uL Sodium 144 (136-145) mmol/L Potassium 4.3 (3.5-5.1) mmol/L Chloride 110 H (98-107) mmol/L Carbon Dioxide 29.1 (21.0-32.0) mmol/L BUN 58 H (7-18) mg/dL Creatinine 1.69 H (0.51-1.17) mg/dL Est Cr Clr Drug Dosing 23.48 mL/min Estimated GFR (MDRD) 29 mL/min Glucose 164 H (74-106) mg/dL POC Glucose 144 H (65-110) mg/dl Calcium 8.2 L (8.5-10.1) mg/dL Magnesium 2.0 (1.8-2.4) mg/dL Iron (50-175) ug/dL TIBC (250-450) ug/dL % Saturation Creatine Kinase 49 (26-308) U/L Creatine Kinase Index 1.6 (0.0-2.5) % CK-MB (CK-2) 0.80 (0.00-3.60) ng/mL Troponin I 0.003 (0.000-0.056) ng/mL NT-Pro-B Natriuret Pep 8233 H (0-125) pg/mL 12/06/19 Range/Units 07:21 WBC (4.0-10.2) K/uL RBC (3.77-5.09) M/uL Hgb (11.7-15.5) g/dL Hct (34.0-46.0) % MCV (84.0-98.0) fL MCH (28.2-33.3) pg MCHC (31.7-36.0) g/dL RDW (11.2-14.1) % Plt Count (150-350) K/uL Neut % (Auto) (45.0-80.0) % Lymph % (Auto) (10.0-50.0) % Henderson % (Auto) (2.0-14.0) % Eos % (Auto) (0.0-5.0) % Baso % (Auto) (0.0-2.0) % Neut # (Auto) (1.40-7.00) K/uL Lymph # (Auto) (0.50-3.50) K/uL Henderson # (Auto) (0.00-1.00) K/uL Eos # (Auto) (0.00-0.50) K/uL Baso # (Auto) (0.00-0.20) K/uL Sodium (136-145) mmol/L Potassium (3.5-5.1) mmol/L Chloride (98-107) mmol/L Carbon Dioxide (21.0-32.0) mmol/L BUN (7-18) mg/dL Creatinine (0.51-1.17) mg/dL Est Cr Clr Drug Dosing mL/min Estimated GFR (MDRD) mL/min Glucose (74-106) mg/dL POC Glucose (65-110) mg/dl Calcium (8.5-10.1) mg/dL Magnesium (1.8-2.4) mg/dL Iron 38 L (50-175) ug/dL TIBC 229 L (250-450) ug/dL % Saturation 16.74530 Creatine Kinase (26-308) U/L Creatine Kinase Index (0.0-2.5) % CK-MB (CK-2) (0.00-3.60) ng/mL Troponin I (0.000-0.056) ng/mL NT-Pro-B Natriuret Pep (0-125) pg/mL Pool Results Last 24 Hours: Microbiology 12/03/19 10:50 Urine Culture - Final Urine, Voided NO GROWTH AFTER 2 DAYS Second urine culture and sensitivity results still pending. Med Orders - Current: Current Medications Acetaminophen (Tylenol) 650 mg PO Q4H PRN PRN Reason: analgesia/fever Last Admin: 12/03/19 16:54 Dose: 650 mg Documented by: Albuterol (Proair Hfa) 1 gm INH Q2H PRN PRN Reason: Shortness of Breath Albuterol/Ipratropium (Combivent Respimat) 1 gm INH QID [facility] Last Admin: 12/06/19 07:29 Dose: 2 puff Documented by: Aspirin (Halfprin) 81 mg PO DAILY [facility] Last Admin: 12/06/19 07:29 Dose: 81 mg Documented by: Atorvastatin Calcium (Lipitor) 40 mg PO BEDTIME [facility] Last Admin: 12/05/19 19:21 Dose: 40 mg Documented by: Bisacodyl (Dulcolax) 10 mg RECTAL DAILY PRN PRN Reason: Constipation Calcium Carbonate/Glycine (Tums Extra Strength) 1,500 mg PO BEDTIME [facility] Last Admin: 12/05/19 19:21 Dose: 1,500 mg Documented by: Carvedilol (Coreg) 12.5 mg PO QPM [facility] Last Admin: 12/05/19 19:20 Dose: 12.5 mg Documented by: Carvedilol (Coreg) 25 mg PO QAM [facility] Last Admin: 12/06/19 07:29 Dose: 25 mg Documented by: Dorzolamide HCl (Trusopt 2% Ophth Soln) 1 ml EYEBOTH BID [facility] Last Admin: 12/06/19 07:33 Dose: 1 drop Documented by: Ferrous Sulfate (Ferrous Sulfate) 325 mg PO BID [facility] Furosemide (Lasix) 40 mg IVPUSH BID [facility] Last Admin: 12/06/19 07:29 Dose: 40 mg Documented by: Insulin Glargine (Lantus) 10 unit SUBCUT DAILY [facility] Last Admin: 12/06/19 07:32 Dose: 10 units Documented by: Insulin Human Lispro (Humalog) 10 unit SUBCUT TID [facility] Last Admin: 12/06/19 07:30 Dose: 10 units Documented by: Insulin Human Regular (Humulin R) 0 unit SUBCUT QIDACANDBED [facility]; Protocol Last Admin: 12/06/19 07:27 Dose: Not Given Documented by: Latanoprost (Xalatan 0.005% Ophth Soln) 0 ml EYEBOTH BEDTIME [facility] Last Admin: 12/05/19 19:33 Dose: 1 drop Documented by: Loperamide HCl (Imodium Ad) 2 mg PO Q6H PRN PRN Reason: Diarrhea Losartan Potassium (Cozaar) 50 mg PO BID [facility] Neomycin/Polymyxin/Bacitracin (Triple Antibiotic Oint) 1 each TOP DAILY [facility] Last Admin: 12/06/19 07:29 Dose: 1 each Documented by: Nitrofurantoin Macrocrystals (Macrobid) 100 mg PO DAILY [facility] Last Admin: 12/06/19 07:29 Dose: 100 mg Documented by: Nitroglycerin (Nitrostat) 0.4 mg SL ASDIRECTED PRN PRN Reason: Chest Pain Potassium Chloride (Klor-Con M20) 20 meq PO BID [facility] Sodium Chloride (Saline Flush) 10 ml FLUSH ASDIRECTED PRN PRN Reason: Keep Vein Open Last Admin: 12/05/19 19:22 Dose: 10 ml Documented by: Discontinued Medications Albuterol/Ipratropium (Duoneb 3.0-0.5 Mg/3 Ml) 3 ml NEB ONETIME ONE Stop: 12/02/19 05:28 Last Admin: 12/02/19 06:09 Dose: 3 ml Documented by: Albuterol/Ipratropium (Duoneb 3.0-0.5 Mg/3 Ml) 3 ml NEB QID [facility] Bumetanide (Bumex) 1 mg PO DAILY [facility] Last Admin: 12/05/19 07:43 Dose: 1 mg Documented by: Clonidine HCl (Catapres) 0.1 mg PO ONETIME ONE Stop: 12/02/19 06:12 Last Admin: 12/02/19 06:16 Dose: 0.1 mg Documented by: Enoxaparin Sodium (Lovenox) 40 mg SUBCUT DAILY [facility] Last Admin: 12/04/19 19:52 Dose: Not Given Documented by: Ferrous Sulfate (Ferrous Sulfate) 325 mg PO DAILY [facility] Last Admin: 12/06/19 07:28 Dose: 325 mg Documented by: Furosemide (Lasix) 40 mg IVPUSH DAILY [facility] Last Admin: 12/04/19 09:15 Dose: Not Given Documented by: Furosemide (Lasix) 40 mg IVPUSH Q8H [facility] Last Admin: 12/05/19 12:17 Dose: Not Given Documented by: Ceftriaxone Sodium 1 gm/ (Sodium Chloride) 100 mls @ 200 mls/hr IV Q24H [facility] Last Admin: 12/05/19 07:43 Dose: 200 mls/hr Documented by: Insulin Human Regular (Humulin R) 0 unit SUBCUT QID [facility]; Protocol Last Admin: 12/04/19 11:38 Dose: Not Given Documented by: Levofloxacin (Levaquin) 500 mg PO Q24H [facility] Last Admin: 12/06/19 07:28 Dose: 500 mg Documented by: Lidocaine/Epinephrine (Xylocaine 2% With Epinephrine 1:100,000) 20 ml INJECT ONETIME ONE Stop: 12/03/19 12:36 Last Admin: 12/03/19 13:10 Dose: 20 ml Documented by: Losartan Potassium (Cozaar) 50 mg PO DAILY [facility] Last Admin: 12/06/19 07:28 Dose: 50 mg Documented by: Methylprednisolone Sodium Succinate (Solu-Medrol) 125 mg IVPUSH DAILY [facility] Last Admin: 12/04/19 09:16 Dose: Not Given Documented by: Potassium Chloride (Klor-Con M20) 20 meq PO TID [facility] Last Admin: 12/06/19 07:28 Dose: 20 meq Documented by: - Exam Quality Assessment: Supplemental Oxygen (Normal baseline at 2 L/min by nasal cannula), DVT Prophylaxis. No: Central Line/PICC, Urine Catheter, Skin Breakdown, Restraints General: Alert, Oriented, Cooperative, No Acute Distress HEENT: Pupils Equal, Pupils Reactive, EOMI, Mucous Membr. Moist/[place] Neck: Supple, Trachea Midline, No JVD, No Thyromegaly, Carotid Bruit (Stable mild bilateral carotid bruits). No: Lymphadenopathy Lungs: Rales (Improved mild mostly bilateral basilar). No: Rhonchi, Rub, Wheezing Cardiovascular: Regular Rate, Regular Rhythm, No Murmurs. No: Gallops, Rubs GI/Abdominal Exam: Normal Bowel Sounds, Soft, Non-Tender, No Organomegaly, No Distention, No Abnormal Bruit, No Mass, Other (Obese). No: Guarding (Female) Exam: Deferred Back Exam: Full Range of Motion, Other (Mild to moderate scoliosis). No: CVA Tenderness (L), CVA Tenderness (R), Muscle Spasm, Paraspinal Tenderness, Vertebral Tenderness Extremities: Normal Inspection, Normal Range of Motion, Non-Tender, No Pedal Edema, Normal Capillary Refill. No: Charlee's Sign Peripheral Pulses: 2+: Radial (L), Radial (R), Dorsalis Pedis (L), Dorsalis Pedis (R) Skin: Warm, Dry, Intact. No: Ecchymosis Wound/Incisions: Healing Well (Excision site of epidermal inclusion site in the mid back), Dressing Dry and Intact Neurological: No New Focal Deficit, Other (Negative Babinski's) Psy/Mental Status: Alert, Normal Affect, Normal Mood. No: Agitated, Hallucinations, Withdrawal Symptoms Sepsis Event Note - Evaluation Sepsis Screening Result: No Definite Risk - Focused Exam Vital Signs: Vital Signs Temp Pulse Pulse Resp BP BP BP 12/06/19 07:45 36.3 C 65 16 150/70 H 12/06/19 07:29 65 150/70 H 12/06/19 07:28 150/70 H 12/06/19 04:00 36.8 C 74 22 H 134/94 H Pulse Ox 12/06/19 07:45 99 12/06/19 07:29 12/06/19 07:28 12/06/19 04:00 96 - Problem List & Annotations (1) CHF (congestive heart failure) SNOMED Code(s): 64506224 Code(s): I50.9 - HEART FAILURE, UNSPECIFIED Status: Chronic Priority: High Current Visit: Yes Onset Date: 02/21/17 Qualifiers: Heart failure type: unspecified Heart failure chronicity: acute on chronic Qualified Code(s): I50.9 - Heart failure, unspecified Annotation/Comment:: No chest pain or anginal type symptoms. No reported recent weight gain. History of cardiomegaly, previous SVT. Echocardiogram on 08/26/18 with an ejection fraction of 45% at that time. Note history of pulmonary hypertension. Elevated proBNP noted in ER without evidence of significant overload noted on chest xray/physical exam. Lasix discontinued on 12/03 secondary to progressive creatinine elevation, however note persistent moderate CHF by chest x-ray on 12/04. Previously initiated Bumex will be changed back to Lasix with continued close observation of her renal status with improved creatinine on 12/05 despite her Lasix therapy as above. Note that the patient apparently had only been taking her Bumex on a daily rather than previously described twice daily basis and was not on potassium supplementation prior to admission. Some confusion with current medical therapy and compliance, although the patient does have a pill organizer. Medication compliance was strongly encouraged. (2) COPD (chronic obstructive pulmonary disease) SNOMED Code(s): 61746045 Code(s): J44.9 - CHRONIC OBSTRUCTIVE PULMONARY DISEASE, UNSPECIFIED Status: Chronic Priority: Medium Current Visit: Yes Qualifiers: COPD type: emphysema Emphysema type: panlobular Qualified Code(s): J43.1 - Panlobular emphysema Annotation/Comment:: No recent fever or bronchitic type symptoms. Increased SOB prior to admission likely secondary to her CHF with initial suspicion of left lower lobe pneumonia. IV Rocephin and IV Levaquin were initiated on admission with discontinuation of IV Rocephin on 12/04 and continuation of IV Levaquin until discontinuation on 12/05 secondary to resolved leukocytosis with Macrobid therapy. Secondary to probable UTI oral Macrobid therapy was initiated on 12/04. Note persistent leukocytosis on 12/04 likely secondary to previous IV Solu- Medrol therapy. Note stable O2 saturations with patient back to her normal baseline of 2 L/min by nasal cannula. (3) UTI (urinary tract infection) SNOMED Code(s): 34813073 Code(s): N39.0 - URINARY TRACT INFECTION, SITE NOT SPECIFIED Status: Acute Priority: High Current Visit: Yes Onset Date: ~12/03/19 Qualifiers: Urinary tract infection type: acute cystitis Hematuria presence: with hematuria Qualified Code(s): N30.01 - Acute cystitis with hematuria Annotation/Comment:: Initial urine culture was negative. Note IV Rocephin and IV Levaquin therapy as above. Repeat urine sample was collected on 12/04, which was still showing a probable infection. Culture and sensitivity reordered. Change in antibiotic therapy as above. (4) Anemia SNOMED Code(s): 746620996 Code(s): D64.9 - ANEMIA, UNSPECIFIED Status: Chronic Priority: Medium Current Visit: Yes Onset Date: 02/27/18 Qualifiers: Anemia type: due to chronic kidney disease Chronic kidney disease stage: stage 3 (moderate) Qualified Code(s): N18.3 - Chronic kidney disease, stage 3 (moderate); D63.1 - Anemia in chronic kidney disease Annotation/Comment:: Chronic. Contributions from both iron deficiency and chronic renal disease. No evidence of acute GI bleed based on history/ER exam. Stool negative for occult blood. Noted to have change from 11.1 to 9.5 on 12/02 with stable hemoglobin throughout the remainder of the hospitalization. Probable dilutional effect secondary to IV fluids/antibiotics with TIBC panel conducted on 12/06/2019 still showing iron deficiency. The patient has been noncompliant with her previously prescribed iron sulfate supplementation, which was increased to twice daily on 12/05. TIBC panel and ferritin level should be repeated in about 4 weeks. 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 Accu-Cheks improved after discontinuation of IV Solu-Medrol. (6) Hypertension SNOMED Code(s): 32716522 Code(s): I10 - ESSENTIAL (PRIMARY) HYPERTENSION Status: Chronic Priority: Medium Current Visit: Yes Qualifiers: Hypertension type: essential hypertension Qualified Code(s): I10 - Essential (primary) hypertension Annotation/Comment:: Patient was apparently previously on Spironolactone therapy, however her Cozaar will be increased for the time being. Note medication confusion on admission with patient not revealing that she was on Spironolactone at that time. Delay reinitiation of Spironolactone for now. Continue to observe closely by her regular provider after discharge with weekly initial evaluations recommended secondary to recurrent admissions in this facility for decompensated CHF, etc.. (7) Hypocalcemia SNOMED Code(s): 0843609 Code(s): E83.51 - HYPOCALCEMIA Status: Chronic Priority: Medium Current Visit: Yes Onset Date: 03/01/18 Annotation/Comment:: OTC Tums as calcium supplementation and GI prophylaxis resumed on 12/05/2019. Continue to observe closely by regular provider. (8) EIC (epidermal inclusion cyst) SNOMED Code(s): 820768485 Code(s): L72.0 - EPIDERMAL CYST Status: Acute Priority: Medium Current Visit: Yes Onset Date: ~12/03/19 Annotation/Comment:: Patient noted to have large EIC middle of upper back. Mildly irritated but not obviously acutely infected. Patient reported increasing discomfort/itching of site. Unable to comfortably lay back in bed. Because of this and concern for developing abscess the cyst was incised and cyst material and some of cyst wall removed. - Problem List Review Problem List Initiated/Reviewed/Updated: Yes - My Orders Last 24 Hours: My Active Orders 12/05/19 10:30 Nitrofurantoin Henderson/Macrocryst [Macrobid] 100 mg PO DAILY 12/05/19 10:49 CHF Questionnaire [COMM] Routine 12/05/19 18:00 Furosemide [Lasix] 40 mg IVPUSH BID 12/05/19 19:20 CULTURE URINE [RM] Routine 12/05/19 20:00 Calcium Carbonate [Tums Extra Strength] 1,500 mg PO BEDTIME 12/06/19 18:00 Ferrous Sulfate 325 mg PO BID Losartan [Cozaar] 50 mg PO BID Potassium Chloride [Klor-Con M20] 20 meq PO BID 12/07/19 05:11 Chest 2V [CR] Routine BASIC METABOLIC PANEL,BMP [CHEM] Routine CBC WITH AUTO DIFF [HEME] Routine PRO B-TYPE NATRIUR PEPT,BNPPRO [CHEM] Routine - Assessment Assessment:: as above - Plan Plan:: as above. Extensive precautions were given to the patient, who is in agreement with the treatment plan. The patient will require about -1-2days of inpatient/acute care secondary to multiple health problems as above. Note extended hospitalization required secondary to refractory multiple health issues as above.
[2019-12-06] MEDS: Sodium Chloride 0.9% 10 ML Syringe FLUSH PRN (17:06)
[2019-12-06] MEDS: Carvedilol 12.5 MG Tab PO SCH (17:07)
[2019-12-06] MEDS: Acetaminophen 325 MG Tab PO PRN (17:54)
[2019-12-06] MEDS: Calcium Carbonate 750 MG Tab.Chew PO SCH (20:06)
[2019-12-06] MEDS: atorvaSTATin 40 MG Tab PO SCH (20:06)
[2019-12-06] MEDS: Latanoprost 0.005% Ophth Soln 2.5 ML Bottle EYEBOTH SCH (20:07)
[2019-12-07] MEDS: Albuterol/Ipratropium 4 GM Inhalation Spray INH SCH ×2 (07:32→11:49)
[2019-12-07] MEDS: Insulin Regular, Human 100 Units/ML 3 ML Vial SUBCUT SCH ×2 (07:32→11:44)
[2019-12-07] MEDS: Insulin Lispro 100 Units/ML 3 ML Vial SUBCUT SCH ×2 (07:33→11:50)
[2019-12-07] MEDS: Insulin Glarg,Human.Rec.Analog 100 Unit/ML SUBCUT SCH (07:34)
[2019-12-07] MEDS: Dorzolamide 2% Ophth Soln 10 ML Bottle EYEBOTH SCH (07:37)
[2019-12-07] MEDS: Sodium Chloride 0.9% 10 ML Syringe FLUSH PRN (07:42)
[2019-12-07] MEDS: Furosemide 40 MG/4 ML VIAL IVPUSH SCH (07:43)
[2019-12-07] MEDS: Bacitracin/Neomycin/Polymyxin B Oint 0.9 GM U/D Packet TOP SCH (07:44)
[2019-12-07] MEDS: Nitrofurantoin Monohydrate/Macrocrystalline 100 MG Cap PO SCH (07:45)
[2019-12-07] MEDS: Ferrous Sulfate 325 MG Tab PO SCH (07:45)
[2019-12-07] MEDS: Carvedilol 25 MG Tab PO SCH (07:45)
[2019-12-07] MEDS: Potassium Chloride 20 MEQ Tab.ER PO SCH (07:45)
[2019-12-07] MEDS: Aspirin 81 MG Tab.EC PO SCH (07:45)
[2019-12-07] MEDS: Losartan 50 MG Tab PO SCH (07:46)
--- NOTE | 2019-12-07 09:27 | PCM.DCSUM1 ---
Discharge Summary - Hospital Course HPI Initial Comments: See emergency room note/admission H&P Brief History: See emergency room note/admission H&P Diagnosis: Stroke: No Modified [place] Scale: No Symptoms at All Modified [place] Scale Score: 0 - Discharge Data Discharge Date: 12/07/19 Discharge Disposition: Home, Self-Care 01 Condition: Fair - Referral to Home Health Primary Care Physician: Ana Rocha MD - Discharge Diagnosis/Problem(s) (1) CHF (congestive heart failure) SNOMED Code(s): 10101765 ICD Code: I50.9 - HEART FAILURE, UNSPECIFIED Status: Chronic Priority: High Current Visit: Yes Onset Date: 02/21/17 Problem Details: No chest pain or anginal type symptoms either prior to admission and/or during this hospitalization.. No reported recent weight gain prior to admission. Note known history of cardiomegaly, previous SVT, etc. Echocardiogram last performed on 08/26/18 with an ejection fraction of 45% at that time and history of pulmonary hypertension. Consider repeat echocardiogram once her medical therapy has been determined with multiple medication changes during this hospitalization and possibly needed after discharge. Elevated proBNP noted in ER without evidence of significant overload noted on chest xray/physical exam at that time, however note follow-up chest x-ray did show some CHF during this hospitalization. Lasix discontinued on 12/03 secondary to progressive creatinine elevation, however note persistent moderate CHF by chest x-ray on 12/04. Previously initiated Bumex will be changed back to Lasix with continued close observation of her renal status with improved creatinine on 12/05 despite her Lasix therapy as above. Note that the patient apparently had only been taking her Bumex on a daily rather than previously described twice daily basis and was not on potassium supplementation prior to admission. Some confusion with current medical therapy and compliance, although the patient does have a pill organizer. Her Bumex will be changed to 2 mg p.o. every morning in order to improve medication compliance with additional reinitiation of her Spironolactone therapy, which the patient has also not been taking. Her potassium chloride will be held for now secondary to previous problems with hyperkalemia from her medications with close follow-up by her regular provider as per discharge instructions. Further cardiology consultation and/or work-up depending on her clinical course. Medication compliance was once again strongly encouraged. Note significantly improved CHF by clinical exam and chest x-ray on 12/06 with slowly improving however still moderately elevated BNP with her renal insufficiency being a contributing factor to the BNP elevation. Qualifiers: Heart failure type: unspecified Heart failure chronicity: acute on chronic Qualified Code(s): I50.9 - Heart failure, unspecified (2) COPD (chronic obstructive pulmonary disease) SNOMED Code(s): 21025514 ICD Code: J44.9 - CHRONIC OBSTRUCTIVE PULMONARY DISEASE, UNSPECIFIED Status: Chronic Priority: Medium Current Visit: Yes Problem Details: No recent fever or bronchitic type symptoms. Increased SOB prior to admission likely secondary to her CHF with initial suspicion of left lower lobe pneumonia. IV Rocephin and IV Levaquin were initiated on admission with discontinuation of IV Rocephin on 12/04 and continuation of IV Levaquin until discontinuation on 12/05 secondary to resolved leukocytosis with Macrobid therapy. Secondary to probable UTI oral Macrobid therapy was initiated on 12/04. Note persistent leukocytosis on 12/04 likely secondary to previous IV Solu-Medrol therapy. Note stable O2 saturations with patient back to her normal baseline of 2 L/min by nasal cannula. Qualifiers: COPD type: emphysema Emphysema type: panlobular Qualified Code(s): J43.1 - Panlobular emphysema (3) UTI (urinary tract infection) SNOMED Code(s): 45532980 ICD Code: N39.0 - URINARY TRACT INFECTION, SITE NOT SPECIFIED Status: Acute Priority: High Current Visit: Yes Onset Date: ~12/03/19 Problem Details: Initial urine culture was negative. Note IV Rocephin and IV Levaquin therapy as above. Repeat urine sample was collected on 12/04, which was still showing a probable infection. The second urine culture and sensitivity showed probable contamination with recommended quick cath UA with culture and sensitivity after completion of Macrobid therapy as above. Note previous IV antibiotic therapy as above. Qualifiers: Urinary tract infection type: acute cystitis Hematuria presence: with hematuria Qualified Code(s): N30.01 - Acute cystitis with hematuria (4) Anemia SNOMED Code(s): 337056439 ICD Code: D64.9 - ANEMIA, UNSPECIFIED Status: Chronic Priority: Medium Current Visit: Yes Onset Date: 02/27/18 Problem Details: Chronic and improved hemoglobin of 10.4 prior to discharge. Contributions from both iron deficiency and chronic renal disease. No evidence of acute GI bleed based on history/ER exam. Stool negative for occult blood. Noted to have change from 11.1 to 9.5 on 12/02 with stable hemoglobin throughout the remainder of the hospitalization. Probable dilutional effect secondary to IV fluids/antibiotics with TIBC panel conducted on 12/06/2019 still showing iron deficiency. The patient has been noncompliant with her previously prescribed iron sulfate supplementation, which was increased to twice daily on 12/05. TIBC panel and ferritin level should be repeated in about 4 weeks. Qualifiers: Anemia type: due to chronic kidney disease Chronic kidney disease stage: stage 3 (moderate) Qualified Code(s): N18.3 - Chronic kidney disease, stage 3 (moderate); D63.1 - Anemia in chronic kidney disease (5) Diabetes mellitus SNOMED Code(s): 59129985 ICD Code: E11.9 - TYPE 2 DIABETES MELLITUS WITHOUT COMPLICATIONS Status: Chronic Priority: Medium Current Visit: Yes Problem Details: Patient is on sliding scale. Accu-Cheks improved after discontinuation of IV Solu-Medrol. Continue close observation by her regular provider with weight loss in moderation advisable. 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 Diabetes mellitus complication status: with kidney complications Diabetes mellitus complication detail: with chronic kidney disease Chronic kidney disease stage: stage 3 (moderate) Qualified Code(s): E11.22 - Type 2 diabetes mellitus with diabetic chronic kidney disease; N18.3 - Chronic kidney disease, stage 3 (moderate); Z79.4 - terminologist (current) use of insulin (6) Hypertension SNOMED Code(s): 04060638 ICD Code: I10 - ESSENTIAL (PRIMARY) HYPERTENSION Status: Chronic Priority: Medium Current Visit: Yes Problem Details: Patient was apparently previously on Spironolactone therapy, which will be reinitiated at discharge secondary to her mildly persistent elevated systolic blood pressures in the 140s to 150s. Note previous increase of her Cozaar during this hospitalization with improved blood pressures prior to discharge. Medication confusion on admission with patient not revealing that she was on Spironolactone at that time. Continue to observe closely by her regular provider after discharge with weekly initial evaluations strongly recommended secondary to recurrent admissions in this facility for decompensated CHF, etc.. Qualifiers: Hypertension type: essential hypertension Qualified Code(s): I10 - Essential (primary) hypertension (7) Hypocalcemia SNOMED Code(s): 9216724 ICD Code: E83.51 - HYPOCALCEMIA Status: Chronic Priority: Medium Current Visit: Yes Onset Date: 03/01/18 Problem Details: OTC Tums as calcium supplementation and GI prophylaxis resumed on 12/05/2019. Continue to observe closely by regular provider. (8) EIC (epidermal inclusion cyst) SNOMED Code(s): 260342864 ICD Code: L72.0 - EPIDERMAL CYST Status: Acute Priority: Medium Current Visit: Yes Onset Date: ~12/03/19 Problem Details: Patient noted to have large EIC middle of upper back. Mildly irritated but not obviously acutely infected. Patient reported increasing discomfort/itching of site. Unable to comfortably lay back in bed. Because of this and concern for developing abscess the cyst was incised and cyst material and some of cyst wall removed. - Patient Summary/Data Operative Procedure(s) Performed: Excision of epidural inclusion cyst on 12/03/2019 as above Complications: None Consults: None Labs Pending at D/C: 1. Final urine culture and sensitivity results from second specimen 2. Final chest x-ray report from 12/07/2019 Recommended Follow-up Testing/Procedures: As per discharge instructions Planned Operative Procedure(s) after DC: None Hospital Course: Patient was initially admitted to inpatient/acute care and treated for suspected left lower lobe pneumonia as above. Note that inhaler therapy rather than nebulizer treatments were used during this hospitalization secondary to current COVID-19 pandemic. The patient does have a long history of recurrent CHF as above with multiple medication adjustments required during this hospitalization. No chest pain or anginal type symptoms with negative work-up for an acute PA. In addition note newly diagnosed UTI. Close follow-up by her regular provider will be required as above. - Patient Instructions Diet: Fluid Restriction Diet, Other: 1500-calorie ADA, heart healthy, diverticulosis Fluid Restriction: 2000 mL Activity: As Tolerated Driving: May Drive Today Showering/Bathing: May Shower Wound/Incision Care: Keep Operative Site/Wound Site Clean and Dry, Change Dressing Daily Notify Provider of: Fever, Increased Pain, Swelling and Redness, Drainage, Nausea and/or Vomiting Other/Special Instructions: 1. Followup with your regular provider in 5 days as directed with recommended repeat CBC, comprehensive metabolic panel, troponin I, BNP, quick cath UA with culture and sensitivity chest x-ray, and EKG. Bring these discharge instructions with you to that visit. 2. TIBC panel and ferritin level should be repeated in about 4 weeks. 3. Discuss multiple medication changes during this hospitalization at the above follow-up with recommended weekly follow-ups by your regular provider until your medical regimen has been determined with possibility of scheduling repeat echocardiogram at that time. 4. Strict compliance with all medications as extensively discussed during this hospitalization. 5. Immediately after this visit verify that your cellular telephone's voicemail has been activated and is empty. Also verify that your home telephone's answering machine is operating properly and has space to receive messages. Note that it is sometimes necessary for us to be able to contact you at a later date to discuss your medical care. 6. Please remember that we are ALWAYS here for you and want to answer any questions you may have. Feel free to call the hospital any time and we call you back [facility]. 7. Sutures should be removed from your back on about 12/13/2019. 8. Do not use inhalers and nebulizer treatments concurrently with inhalers not needed despite medication list as provided at discharge. 9. Antibacterial soap wash/soak with subsequent antibacterial dressing such as Neosporin, etc. as directed 2 times per day until the wound or laceration site completely heals. Keep the area clean and dry with activity restrictions as discussed. Never use hydrogen peroxide for wound care. SYMPTOMS TO LOOK OUT FOR: . You have been hospitalized for your heart disease and should look out for the following symptoms after discharge: . 1. Make absolutely certain that you completely understand the reasons you are taking any of your new and/or old medications and/or supplements as discussed with you by the nurse at time of discharge. This includes possible side effects versus interactions between your medications and/or supplements. Don't be afraid to take extra time to ask any questions or express any concerns, because that is what we are here for. It is very important to us that you understand your care. 2. Notify this facility, telephone number [phone], and/or your regular provider [facility] if you experience any of the following symptoms: a. Sudden chest pressure or pain especially with radiation to the neck, jaws, arms, mid back, etc. especially if these are associated with nausea, cold sweats, dizziness, racing heart, weakness, near fainting, etc. b. Any shortness of breath or decreased exercise tolerance that has changed since your hospital discharge and is not normal for you. c. Any persistent heartburn type symptoms that is not normal for you and is not relieved by any of your discharge medications or supplements. d. Any progressive weight gain especially more than 5 pounds of weight gain prior to your scheduled appointment with your regular provider. e. Any racing heart, dizziness, etc. not associated with the other symptoms as above. f. Any persistent fever equal to or greater than 100.5 degrees, which does not respond to recommended doses of Tylenol, ibuprofen, Aleve, or other previously prescribed fever medications - Discharge Plan *PRESCRIPTION DRUG MONITORING PROGRAM REVIEWED*: Not Applicable *COPY OF PRESCRIPTION DRUG MONITORING REPORT IN PATIENT MONSERRAT: Not Applicable Prescriptions/Med Rec: Bumetanide [Bumex] 2 mg PO DAILY #30 Losartan [Cozaar] 50 mg PO BID #60 tablet Nitrofurantoin [place]/Macrocryst [Nitrofurantoin [place]-MCR] 100 mg PO DAILY #5 cap Home Medications: Home Meds Albuterol/Ipratropium [DuoNeb 3.0-0.5 MG/3 ML] 3 ml NEB QID 02/21/17 [History] Latanoprost [Xalatan 0.005% Ophth Soln] 1 drop EYEBOTH BEDTIME 02/21/17 [History] atorvaSTATin Calcium [Atorvastatin Calcium] 40 mg PO BEDTIME 02/21/17 [History] Loperamide [Imodium AD] 2 mg PO Q6H PRN #0 tablet 03/01/18 [Rx] Aspirin [Lo-Dose Aspirin EC] 81 mg PO DAILY 06/26/19 [History] Brinzolamide [Azopt 1% Ophth Susp] 1 drop EYEBOTH BID 06/26/19 [History] Insulin Glarg,Human.Rec.Analog [Lantus Solostar] 10 units SUBCUT DAILY 06/26/19 [History] Insulin Glulisine [Apidra Solostar] 10 - 15 unit SUBCUT TID 06/26/19 [History] Nitroglycerin 1 tab SL ASDIRECTED PRN 06/26/19 [History] carvediloL [Carvedilol] 25 mg PO QAM 06/26/19 [History] carvediloL [Carvedilol] 12.5 mg PO QPM 12/02/19 [History] Acetaminophen [Tylenol] 650 mg PO Q4H PRN tablet 12/07/19 [Rx] Albuterol [Proair HFA] 1 gm INH Q2H PRN inhaler 12/07/19 [Rx] Albuterol/Ipratropium [Combivent Respimat] 1 gm INH QID inhaler 12/07/19 [Rx] Bacitracin/Neomycin/Polymyxin [Triple Antibiotic Oint] 1 each TOP DAILY packet 12/07/19 [Rx] Bumetanide [Bumex] 2 mg PO DAILY #30 12/07/19 [Rx] Calcium Carbonate [Tums Extra Strength] 1,500 mg PO BEDTIME tab.chew 12/07/19 [Rx] Ferrous Sulfate 325 mg PO BID tablet 12/07/19 [Rx] Losartan [Cozaar] 50 mg PO BID #60 tablet 12/07/19 [Rx] Nitrofurantoin [place]/Macrocryst [Nitrofurantoin [place]oto-MCR] 100 mg PO DAILY #5 cap 12/07/19 [Rx] Spironolactone [Aldactone] 12.5 mg PO Q12H 12/07/19 [History] bisacodyL [Dulcolax] 10 mg RECTAL DAILY PRN supp 12/07/19 [Rx] Oxygen Therapy Mode: Nasal Cannula Oxygen Flow Rate (L/min): 2 Forms: ED Department Discharge Referrals: Lakeisha Rocha MD [Primary Care Provider] - - Discharge Summary/Plan Comment DC Time >30 min.: Yes (Coordination of care ) Discharge Summary/Plan Comment: As above. See Patient Instructions for further treatment and plan. Extensive precautions were given to the patient, who is in agreement with the treatment plan. - General Info Date of Service: 12/07/19 Admission Dx/Problem (Free Text: 1. Left lower lobe pneumonia 2. COPD 3. CHF 4. Hypertension Functional Status: Reports: Pain Controlled, Tolerating Diet, Ambulating, Urinating, Incentive Spirometry. Denies: New Symptoms Numeric/FACES Score: 0 - Review of Systems General: Reports: Weakness (Improved generalized). Denies: Fever, Fatigue, Malaise, Chills, Night Sweats, Appetite (Good) HEENT: Reports: Glasses. Denies: Dysphasia, Ear Pain, Eye Pain, Headaches, Post Nasal Drip, Sinus Congestion, Sore Throat, Rhinitis, Visual Changes Pulmonary: Reports: No Symptoms. Denies: Shortness of Breath, Pleuritic Chest Pain, Cough, Sputum, Hemoptysis, Wheezing Cardiovascular: Reports: No Symptoms. Denies: Chest Pain, Palpitations, Dyspnea on Exertion, Orthopnea, Edema, Lightheadedness Gastrointestinal: Reports: No Symptoms, Other (Normal bowel movement earlier this morning by her history). Denies: Abdominal Pain, Constipation, Decreased Appetite, Diarrhea, Difficulty Swallowing, Flatus, Hematochezia, Melena, Nausea, Vomiting Genitourinary: Reports: No Symptoms. Denies: Dysuria, Frequency, Burning, Pain, Urgency, Incontinence, Hematuria, Retention, Flank Pain Musculoskeletal: Reports: No Symptoms. Denies: Neck Pain, Shoulder Pain, Arm Pain, Back Pain, Leg Pain Skin: Reports: No Symptoms. Denies: Diaphoresis, Bruising Neurological: Reports: Weakness (As above). Denies: Confusion, Numbness, Paresthesia, Tingling, Difficulty Walking Psychiatric: Reports: No Symptoms. Denies: Confusion, Depression, Anxiety, Agitation, Hallucinations - Patient Data Vitals - Most Recent: Last Vital Signs Temp 36.2 C 12/07/19 07:50 Pulse 72 12/07/19 07:50 Resp 20 12/07/19 07:50 BP 144/73 H 12/07/19 07:50 Pulse Ox 100 12/07/19 07:50 Vital Signs - 24 hr 12/06/19 12/06/19 12/06/19 11:49 17:07 17:42 Temperature [ 36.5 C 36.4 C Temporal] Pulse, 69 Peripheral Pulse, 69 74 Peripheral [ Left Pulse Oximetry] Respiratory 20 20 Rate Blood Pressure 151/78 H Blood Pressure 178/88 H [Left Upper Arm ] Blood Pressure 151/78 H [Right Upper Arm] O2 Sat by Pulse 100 100 Oximetry 12/06/19 12/07/19 12/07/19 23:12 06:00 07:45 Temperature [ 36.7 C 36.9 C Temporal] Pulse, 72 Peripheral Pulse, 73 78 Peripheral [ Left Pulse Oximetry] Respiratory 20 20 Rate Blood Pressure 144/73 H Blood Pressure 147/77 H 155/86 H [Left Upper Arm ] Blood Pressure [Right Upper Arm] O2 Sat by Pulse 98 100 Oximetry 12/07/19 12/07/19 07:46 07:50 Temperature [ 36.2 C Temporal] Pulse, Peripheral Pulse, 72 Peripheral [ Left Pulse Oximetry] Respiratory 20 Rate Blood Pressure 144/73 H Blood Pressure 144/73 H [Left Upper Arm ] Blood Pressure [Right Upper Arm] O2 Sat by Pulse 100 Oximetry Weight - Most Recent: 82.871 kg I&O - Last 24 hours: Intake & Output 12/06/19 12/07/19 12/07/19 22:59 06:59 14:59 Intake Total 460 100 200 Output Total 1000 200 Balance -540 -100 200 Imaging Impressions - Last 24 hrs: Chest x-ray, PA and lateral, on 12/07/2019 shows stable moderately elevated right hemidiaphragm and mild prominence of the proximal aortic arch. Moderate cardiomegaly with mild centralized CHF and/or pulmonary hypertension with borderline mild bilateral pleural effusions however significantly improved since last chest x-ray on 12/05/2019. Moderate kyphosis, osteoarthritis and osteoporotic changes noted. Moderate COPD changes with no pulmonary infiltrates or pneumothorax. Lab Results - Last 24 hrs: Laboratory Results - last 24 hr 12/06/19 12/06/19 12/06/19 Range/Units 11:41 17:03 20:09 WBC (4.0-10.2) K/uL RBC (3.77-5.09) M/uL Hgb (11.7-15.5) g/dL Hct (34.0-46.0) % MCV (84.0-98.0) fL MCH (28.2-33.3) pg MCHC (31.7-36.0) g/dL RDW (11.2-14.1) % Plt Count (150-350) K/uL Neut % (Auto) (45.0-80.0) % Lymph % (Auto) (10.0-50.0) % [place] % (Auto) (2.0-14.0) % Eos % (Auto) (0.0-5.0) % Baso % (Auto) (0.0-2.0) % Neut # (Auto) (1.40-7.00) K/uL Lymph # (Auto) (0.50-3.50) K/uL [place] # (Auto) (0.00-1.00) K/uL Eos # (Auto) (0.00-0.50) K/uL Baso # (Auto) (0.00-0.20) K/uL Sodium (136-145) mmol/L Potassium (3.5-5.1) mmol/L Chloride (98-107) mmol/L Carbon Dioxide (21.0-32.0) mmol/L BUN (7-18) mg/dL Creatinine (0.51-1.17) mg/dL Est Cr Clr Drug Dosing mL/min Estimated GFR (MDRD) mL/min Glucose (74-106) mg/dL POC Glucose 173 H 137 H 143 H (65-110) mg/dl Calcium (8.5-10.1) mg/dL NT-Pro-B Natriuret Pep (0-125) pg/mL 12/07/19 12/07/19 12/07/19 Range/Units 07:16 07:17 07:17 WBC 9.0 (4.0-10.2) K/uL RBC 3.67 L (3.77-5.09) M/uL Hgb 10.4 L (11.7-15.5) g/dL Hct 34.2 (34.0-46.0) % MCV 93.2 (84.0-98.0) fL MCH 28.3 (28.2-33.3) pg MCHC 30.4 L (31.7-36.0) g/dL RDW 13.9 (11.2-14.1) % Plt Count 189 (150-350) K/uL Neut % (Auto) 60.2 (45.0-80.0) % Lymph % (Auto) 28.6 (10.0-50.0) % [place] % (Auto) 7.1 (2.0-14.0) % Eos % (Auto) 4.0 (0.0-5.0) % Baso % (Auto) 0.1 (0.0-2.0) % Neut # (Auto) 5.40 (1.40-7.00) K/uL Lymph # (Auto) 2.57 (0.50-3.50) K/uL [place] # (Auto) 0.64 (0.00-1.00) K/uL Eos # (Auto) 0.36 (0.00-0.50) K/uL Baso # (Auto) 0.01 (0.00-0.20) K/uL Sodium 144 (136-145) mmol/L Potassium 4.4 (3.5-5.1) mmol/L Chloride 109 H (98-107) mmol/L Carbon Dioxide 29.8 (21.0-32.0) mmol/L BUN 56 H (7-18) mg/dL Creatinine 1.64 H (0.51-1.17) mg/dL Est Cr Clr Drug Dosing 24.19 mL/min Estimated GFR (MDRD) 30 mL/min Glucose 160 H (74-106) mg/dL POC Glucose 156 H (65-110) mg/dl Calcium 8.5 (8.5-10.1) mg/dL NT-Pro-B Natriuret Pep 6931 H (0-125) pg/mL Laboratory Tests 12/02/19 12/02/19 12/02/19 Range/Units 05:50 05:50 11:47 WBC 14.7 H (4.0-10.2) K/uL RBC 3.93 (3.77-5.09) M/uL Hgb 11.1 L (11.7-15.5) g/dL Hct 36.5 (34.0-46.0) % MCV 92.9 (84.0-98.0) fL MCH 28.2 (28.2-33.3) pg MCHC 30.4 L (31.7-36.0) g/dL RDW 13.7 (11.2-14.1) % Plt Count 194 (150-350) K/uL Neut % (Auto) 85.8 H (45.0-80.0) % Lymph % (Auto) 9.4 L (10.0-50.0) % [place] % (Auto) 4.4 (2.0-14.0) % Eos % (Auto) 0.3 (0.0-5.0) % Baso % (Auto) 0.1 (0.0-2.0) % Neut # (Auto) 12.61 H (1.40-7.00) K/uL Lymph # (Auto) 1.39 (0.50-3.50) K/uL [place] # (Auto) 0.64 (0.00-1.00) K/uL Eos # (Auto) 0.05 (0.00-0.50) K/uL Baso # (Auto) 0.02 (0.00-0.20) K/uL D-Dimer, Quantitative (0-400) ng/mL Sodium 143 (136-145) mmol/L Potassium 3.7 (3.5-5.1) mmol/L Chloride 105 (98-107) mmol/L Carbon Dioxide 28.1 (21.0-32.0) mmol/L BUN 38 H (7-18) mg/dL Creatinine 1.56 H (0.51-1.17) mg/dL Est Cr Clr Drug Dosing 25.25 mL/min Estimated GFR (MDRD) 32 mL/min Glucose 222 H (74-106) mg/dL POC Glucose 224 H (65-110) mg/dl Calcium 8.3 L (8.5-10.1) mg/dL Magnesium (1.8-2.4) mg/dL Iron (50-175) ug/dL TIBC (250-450) ug/dL % Saturation Total Bilirubin 0.9 (0.2-1.0) mg/dL AST 14 L (15-37) U/L ALT 14 (12-78) U/L Alkaline Phosphatase 101 (46-116) IU/L Creatine Kinase (26-308) U/L Creatine Kinase Index (0.0-2.5) % CK-MB (CK-2) (0.00-3.60) ng/mL Troponin I (0.000-0.056) ng/mL NT-Pro-B Natriuret Pep 54410 H (0-125) pg/mL Total Protein 7.2 (6.4-8.2) g/dL Albumin 2.8 L (3.4-5.0) g/dL Specimen Type Urine Color Urine Appearance Urine pH (5.0-9.0) Ur Specific [place] (1.005-1.030) Urine Protein (NEGATIVE) mg/dL Urine Glucose (UA) (NEGATIVE) mg/dL Urine Ketones (NEGATIVE) mg/dL Urine Occult Blood (NEGATIVE) Urine Nitrite (NEGATIVE) Urine Bilirubin (NEGATIVE) Urine Urobilinogen (0.2-1.0) E.U./dL Ur Leukocyte Esterase (NEGATIVE) U Hyaline Cast (Auto) Urine RBC /HPF Urine WBC /HPF Ur Epithelial Cells /LPF Urine Bacteria (NONE TO FEW) /HPF 12/02/19 12/02/19 12/03/19 Range/Units 17:03 21:13 07:07 WBC (4.0-10.2) K/uL RBC (3.77-5.09) M/uL Hgb (11.7-15.5) g/dL Hct (34.0-46.0) % MCV (84.0-98.0) fL MCH (28.2-33.3) pg MCHC (31.7-36.0) g/dL RDW (11.2-14.1) % Plt Count (150-350) K/uL Neut % (Auto) (45.0-80.0) % Lymph % (Auto) (10.0-50.0) % [place] % (Auto) (2.0-14.0) % Eos % (Auto) (0.0-5.0) % Baso % (Auto) (0.0-2.0) % Neut # (Auto) (1.40-7.00) K/uL Lymph # (Auto) (0.50-3.50) K/uL [place] # (Auto) (0.00-1.00) K/uL Eos # (Auto) (0.00-0.50) K/uL Baso # (Auto) (0.00-0.20) K/uL D-Dimer, Quantitative (0-400) ng/mL Sodium (136-145) mmol/L Potassium (3.5-5.1) mmol/L Chloride (98-107) mmol/L Carbon Dioxide (21.0-32.0) mmol/L BUN (7-18) mg/dL Creatinine (0.51-1.17) mg/dL Est Cr Clr Drug Dosing mL/min Estimated GFR (MDRD) mL/min Glucose (74-106) mg/dL POC Glucose 263 H* 252 H* 269 H* (65-110) mg/dl Calcium (8.5-10.1) mg/dL Magnesium (1.8-2.4) mg/dL Iron (50-175) ug/dL TIBC (250-450) ug/dL % Saturation Total Bilirubin (0.2-1.0) mg/dL AST (15-37) U/L ALT (12-78) U/L Alkaline Phosphatase (46-116) IU/L Creatine Kinase (26-308) U/L Creatine Kinase Index (0.0-2.5) % CK-MB (CK-2) (0.00-3.60) ng/mL Troponin I (0.000-0.056) ng/mL NT-Pro-B Natriuret Pep (0-125) pg/mL Total Protein (6.4-8.2) g/dL Albumin (3.4-5.0) g/dL Specimen Type Urine Color Urine Appearance Urine pH (5.0-9.0) Ur Specific [place] (1.005-1.030) Urine Protein (NEGATIVE) mg/dL Urine Glucose (UA) (NEGATIVE) mg/dL Urine Ketones (NEGATIVE) mg/dL Urine Occult Blood (NEGATIVE) Urine Nitrite (NEGATIVE) Urine Bilirubin (NEGATIVE) Urine Urobilinogen (0.2-1.0) E.U./dL Ur Leukocyte Esterase (NEGATIVE) U Hyaline Cast (Auto) Urine RBC /HPF Urine WBC /HPF Ur Epithelial Cells /LPF Urine Bacteria (NONE TO FEW) /HPF 12/03/19 12/03/19 12/03/19 Range/Units 10:00 10:20 10:20 WBC 11.9 H (4.0-10.2) K/uL RBC 3.35 L (3.77-5.09) M/uL Hgb 9.5 L D (11.7-15.5) g/dL Hct 30.7 L (34.0-46.0) % MCV 91.6 (84.0-98.0) fL MCH 28.4 (28.2-33.3) pg MCHC 30.9 L (31.7-36.0) g/dL RDW 13.3 (11.2-14.1) % Plt Count 157 (150-350) K/uL Neut % (Auto) 90.5 H (45.0-80.0) % Lymph % (Auto) 6.9 L (10.0-50.0) % [place] % (Auto) 2.4 (2.0-14.0) % Eos % (Auto) 0.1 (0.0-5.0) % Baso % (Auto) 0.1 (0.0-2.0) % Neut # (Auto) 10.79 H (1.40-7.00) K/uL Lymph # (Auto) 0.82 (0.50-3.50) K/uL [place] # (Auto) 0.28 (0.00-1.00) K/uL Eos # (Auto) 0.01 (0.00-0.50) K/uL Baso # (Auto) 0.01 (0.00-0.20) K/uL D-Dimer, Quantitative (0-400) ng/mL Sodium 139 (136-145) mmol/L Potassium 3.7 (3.5-5.1) mmol/L Chloride 103 (98-107) mmol/L Carbon Dioxide 28.9 (21.0-32.0) mmol/L BUN 51 H (7-18) mg/dL Creatinine 1.72 H (0.51-1.17) mg/dL Est Cr Clr Drug Dosing 22.90 mL/min Estimated GFR (MDRD) 29 mL/min Glucose 291 H (74-106) mg/dL POC Glucose (65-110) mg/dl Calcium 8.1 L (8.5-10.1) mg/dL Magnesium 1.8 (1.8-2.4) mg/dL Iron (50-175) ug/dL TIBC (250-450) ug/dL % Saturation Total Bilirubin 0.4 (0.2-1.0) mg/dL AST 12 L (15-37) U/L ALT 12 (12-78) U/L Alkaline Phosphatase 70 (46-116) IU/L Creatine Kinase (26-308) U/L Creatine Kinase Index (0.0-2.5) % CK-MB (CK-2) (0.00-3.60) ng/mL Troponin I 0.000 (0.000-0.056) ng/mL NT-Pro-B Natriuret Pep (0-125) pg/mL Total Protein 6.4 (6.4-8.2) g/dL Albumin 2.3 L (3.4-5.0) g/dL Specimen Type Urinblad Urine Color Yellow Urine Appearance Slightly cloudy Urine pH 5.0 (5.0-9.0) Ur Specific [place] 1.020 (1.005-1.030) Urine Protein >=300 H (NEGATIVE) mg/dL Urine Glucose (UA) 100 H (NEGATIVE) mg/dL Urine Ketones Negative (NEGATIVE) mg/dL Urine Occult Blood Moderate H (NEGATIVE) Urine Nitrite Negative (NEGATIVE) Urine Bilirubin Negative (NEGATIVE) Urine Urobilinogen 0.2 (0.2-1.0) E.U./dL Ur Leukocyte Esterase Small H (NEGATIVE) U Hyaline Cast (Auto) Few Urine RBC 20-30 H /HPF Urine WBC 40-50 H /HPF Ur Epithelial Cells Few /LPF Urine Bacteria Few (NONE TO FEW) /HPF 12/03/19 12/03/19 12/03/19 Range/Units 10:20 11:37 16:57 WBC (4.0-10.2) K/uL RBC (3.77-5.09) M/uL Hgb (11.7-15.5) g/dL Hct (34.0-46.0) % MCV (84.0-98.0) fL MCH (28.2-33.3) pg MCHC (31.7-36.0) g/dL RDW (11.2-14.1) % Plt Count (150-350) K/uL Neut % (Auto) (45.0-80.0) % Lymph % (Auto) (10.0-50.0) % [place] % (Auto) (2.0-14.0) % Eos % (Auto) (0.0-5.0) % Baso % (Auto) (0.0-2.0) % Neut # (Auto) (1.40-7.00) K/uL Lymph # (Auto) (0.50-3.50) K/uL [place] # (Auto) (0.00-1.00) K/uL Eos # (Auto) (0.00-0.50) K/uL Baso # (Auto) (0.00-0.20) K/uL D-Dimer, Quantitative 539 H (0-400) ng/mL Sodium (136-145) mmol/L Potassium (3.5-5.1) mmol/L Chloride (98-107) mmol/L Carbon Dioxide (21.0-32.0) mmol/L BUN (7-18) mg/dL Creatinine (0.51-1.17) mg/dL Est Cr Clr Drug Dosing mL/min Estimated GFR (MDRD) mL/min Glucose (74-106) mg/dL POC Glucose 225 H 385 H* (65-110) mg/dl Calcium (8.5-10.1) mg/dL Magnesium (1.8-2.4) mg/dL Iron (50-175) ug/dL TIBC (250-450) ug/dL % Saturation Total Bilirubin (0.2-1.0) mg/dL AST (15-37) U/L ALT (12-78) U/L Alkaline Phosphatase (46-116) IU/L Creatine Kinase (26-308) U/L Creatine Kinase Index (0.0-2.5) % CK-MB (CK-2) (0.00-3.60) ng/mL Troponin I (0.000-0.056) ng/mL NT-Pro-B Natriuret Pep (0-125) pg/mL Total Protein (6.4-8.2) g/dL Albumin (3.4-5.0) g/dL Specimen Type Urine Color Urine Appearance Urine pH (5.0-9.0) Ur Specific [place] (1.005-1.030) Urine Protein (NEGATIVE) mg/dL Urine Glucose (UA) (NEGATIVE) mg/dL Urine Ketones (NEGATIVE) mg/dL Urine Occult Blood (NEGATIVE) Urine Nitrite (NEGATIVE) Urine Bilirubin (NEGATIVE) Urine Urobilinogen (0.2-1.0) E.U./dL Ur Leukocyte Esterase (NEGATIVE) U Hyaline Cast (Auto) Urine RBC /HPF Urine WBC /HPF Ur Epithelial Cells /LPF Urine Bacteria (NONE TO FEW) /HPF 12/03/19 12/03/19 12/04/19 Range/Units 18:02 20:50 06:55 WBC 12.0 H (4.0-10.2) K/uL RBC 3.30 L (3.77-5.09) M/uL Hgb 9.5 L (11.7-15.5) g/dL Hct 30.0 L (34.0-46.0) % MCV 90.9 (84.0-98.0) fL MCH 28.8 (28.2-33.3) pg MCHC 31.7 (31.7-36.0) g/dL RDW 13.3 (11.2-14.1) % Plt Count 169 (150-350) K/uL Neut % (Auto) 86.5 H (45.0-80.0) % Lymph % (Auto) 7.5 L (10.0-50.0) % [place] % (Auto) 6.0 (2.0-14.0) % Eos % (Auto) 0.0 (0.0-5.0) % Baso % (Auto) 0.0 (0.0-2.0) % Neut # (Auto) 10.37 H (1.40-7.00) K/uL Lymph # (Auto) 0.90 (0.50-3.50) K/uL [place] # (Auto) 0.72 (0.00-1.00) K/uL Eos # (Auto) 0.00 (0.00-0.50) K/uL Baso # (Auto) 0.00 (0.00-0.20) K/uL D-Dimer, Quantitative (0-400) ng/mL Sodium (136-145) mmol/L Potassium (3.5-5.1) mmol/L Chloride (98-107) mmol/L Carbon Dioxide (21.0-32.0) mmol/L BUN (7-18) mg/dL Creatinine (0.51-1.17) mg/dL Est Cr Clr Drug Dosing mL/min Estimated GFR (MDRD) mL/min Glucose (74-106) mg/dL POC Glucose 309 H* 323 H* (65-110) mg/dl Calcium (8.5-10.1) mg/dL Magnesium (1.8-2.4) mg/dL Iron (50-175) ug/dL TIBC (250-450) ug/dL % Saturation Total Bilirubin (0.2-1.0) mg/dL AST (15-37) U/L ALT (12-78) U/L Alkaline Phosphatase (46-116) IU/L Creatine Kinase (26-308) U/L Creatine Kinase Index (0.0-2.5) % CK-MB (CK-2) (0.00-3.60) ng/mL Troponin I (0.000-0.056) ng/mL NT-Pro-B Natriuret Pep (0-125) pg/mL Total Protein (6.4-8.2) g/dL Albumin (3.4-5.0) g/dL Specimen Type Urine Color Urine Appearance Urine pH (5.0-9.0) Ur Specific [place] (1.005-1.030) Urine Protein (NEGATIVE) mg/dL Urine Glucose (UA) (NEGATIVE) mg/dL Urine Ketones (NEGATIVE) mg/dL Urine Occult Blood (NEGATIVE) Urine Nitrite (NEGATIVE) Urine Bilirubin (NEGATIVE) Urine Urobilinogen (0.2-1.0) E.U./dL Ur Leukocyte Esterase (NEGATIVE) U Hyaline Cast (Auto) Urine RBC /HPF Urine WBC /HPF Ur Epithelial Cells /LPF Urine Bacteria (NONE TO FEW) /HPF 12/04/19 12/04/19 12/04/19 Range/Units 06:55 06:57 11:06 WBC (4.0-10.2) K/uL RBC (3.77-5.09) M/uL Hgb (11.7-15.5) g/dL Hct (34.0-46.0) % MCV (84.0-98.0) fL MCH (28.2-33.3) pg MCHC (31.7-36.0) g/dL RDW (11.2-14.1) % Plt Count (150-350) K/uL Neut % (Auto) (45.0-80.0) % Lymph % (Auto) (10.0-50.0) % [place] % (Auto) (2.0-14.0) % Eos % (Auto) (0.0-5.0) % Baso % (Auto) (0.0-2.0) % Neut # (Auto) (1.40-7.00) K/uL Lymph # (Auto) (0.50-3.50) K/uL [place] # (Auto) (0.00-1.00) K/uL Eos # (Auto) (0.00-0.50) K/uL Baso # (Auto) (0.00-0.20) K/uL D-Dimer, Quantitative (0-400) ng/mL Sodium 140 (136-145) mmol/L Potassium 4.0 (3.5-5.1) mmol/L Chloride 105 (98-107) mmol/L Carbon Dioxide 27.1 (21.0-32.0) mmol/L BUN 61 H (7-18) mg/dL Creatinine 2.06 H (0.51-1.17) mg/dL Est Cr Clr Drug Dosing 19.26 mL/min Estimated GFR (MDRD) 23 mL/min Glucose 287 H (74-106) mg/dL POC Glucose 283 H* 271 H* (65-110) mg/dl Calcium 7.9 L (8.5-10.1) mg/dL Magnesium (1.8-2.4) mg/dL Iron (50-175) ug/dL TIBC (250-450) ug/dL % Saturation Total Bilirubin (0.2-1.0) mg/dL AST (15-37) U/L ALT (12-78) U/L Alkaline Phosphatase (46-116) IU/L Creatine Kinase (26-308) U/L Creatine Kinase Index (0.0-2.5) % CK-MB (CK-2) (0.00-3.60) ng/mL Troponin I (0.000-0.056) ng/mL NT-Pro-B Natriuret Pep (0-125) pg/mL Total Protein (6.4-8.2) g/dL Albumin (3.4-5.0) g/dL Specimen Type Urine Color Urine Appearance Urine pH (5.0-9.0) Ur Specific [place] (1.005-1.030) Urine Protein (NEGATIVE) mg/dL Urine Glucose (UA) (NEGATIVE) mg/dL Urine Ketones (NEGATIVE) mg/dL Urine Occult Blood (NEGATIVE) Urine Nitrite (NEGATIVE) Urine Bilirubin (NEGATIVE) Urine Urobilinogen (0.2-1.0) E.U./dL Ur Leukocyte Esterase (NEGATIVE) U Hyaline Cast (Auto) Urine RBC /HPF Urine WBC /HPF Ur Epithelial Cells /LPF Urine Bacteria (NONE TO FEW) /HPF 12/04/19 12/04/19 12/05/19 Range/Units 16:48 21:04 06:58 WBC 12.8 H (4.0-10.2) K/uL RBC 3.35 L (3.77-5.09) M/uL Hgb 9.5 L (11.7-15.5) g/dL Hct 30.9 L (34.0-46.0) % MCV 92.2 (84.0-98.0) fL MCH 28.4 (28.2-33.3) pg MCHC 30.7 L (31.7-36.0) g/dL RDW 13.6 (11.2-14.1) % Plt Count 180 (150-350) K/uL Neut % (Auto) 70.6 (45.0-80.0) % Lymph % (Auto) 19.6 (10.0-50.0) % [place] % (Auto) 9.5 (2.0-14.0) % Eos % (Auto) 0.2 (0.0-5.0) % Baso % (Auto) 0.1 (0.0-2.0) % Neut # (Auto) 9.01 H (1.40-7.00) K/uL Lymph # (Auto) 2.51 (0.50-3.50) K/uL [place] # (Auto) 1.22 H (0.00-1.00) K/uL Eos # (Auto) 0.03 (0.00-0.50) K/uL Baso # (Auto) 0.01 (0.00-0.20) K/uL D-Dimer, Quantitative (0-400) ng/mL Sodium (136-145) mmol/L Potassium (3.5-5.1) mmol/L Chloride (98-107) mmol/L Carbon Dioxide (21.0-32.0) mmol/L BUN (7-18) mg/dL Creatinine (0.51-1.17) mg/dL Est Cr Clr Drug Dosing mL/min Estimated GFR (MDRD) mL/min Glucose (74-106) mg/dL POC Glucose 136 H 172 H (65-110) mg/dl Calcium (8.5-10.1) mg/dL Magnesium (1.8-2.4) mg/dL Iron (50-175) ug/dL TIBC (250-450) ug/dL % Saturation Total Bilirubin (0.2-1.0) mg/dL AST (15-37) U/L ALT (12-78) U/L Alkaline Phosphatase (46-116) IU/L Creatine Kinase (26-308) U/L Creatine Kinase Index (0.0-2.5) % CK-MB (CK-2) (0.00-3.60) ng/mL Troponin I (0.000-0.056) ng/mL NT-Pro-B Natriuret Pep (0-125) pg/mL Total Protein (6.4-8.2) g/dL Albumin (3.4-5.0) g/dL Specimen Type Urine Color Urine Appearance Urine pH (5.0-9.0) Ur Specific [place] (1.005-1.030) Urine Protein (NEGATIVE) mg/dL Urine Glucose (UA) (NEGATIVE) mg/dL Urine Ketones (NEGATIVE) mg/dL Urine Occult Blood (NEGATIVE) Urine Nitrite (NEGATIVE) Urine Bilirubin (NEGATIVE) Urine Urobilinogen (0.2-1.0) E.U./dL Ur Leukocyte Esterase (NEGATIVE) U Hyaline Cast (Auto) Urine RBC /HPF Urine WBC /HPF Ur Epithelial Cells /LPF Urine Bacteria (NONE TO FEW) /HPF 12/05/19 12/05/19 12/05/19 Range/Units 06:58 06:58 07:00 WBC (4.0-10.2) K/uL RBC (3.77-5.09) M/uL Hgb (11.7-15.5) g/dL Hct (34.0-46.0) % MCV (84.0-98.0) fL MCH (28.2-33.3) pg MCHC (31.7-36.0) g/dL RDW (11.2-14.1) % Plt Count (150-350) K/uL Neut % (Auto) (45.0-80.0) % Lymph % (Auto) (10.0-50.0) % [place] % (Auto) (2.0-14.0) % Eos % (Auto) (0.0-5.0) % Baso % (Auto) (0.0-2.0) % Neut # (Auto) (1.40-7.00) K/uL Lymph # (Auto) (0.50-3.50) K/uL [place] # (Auto) (0.00-1.00) K/uL Eos # (Auto) (0.00-0.50) K/uL Baso # (Auto) (0.00-0.20) K/uL D-Dimer, Quantitative (0-400) ng/mL Sodium 143 (136-145) mmol/L Potassium 3.6 (3.5-5.1) mmol/L Chloride 108 H (98-107) mmol/L Carbon Dioxide 30.0 (21.0-32.0) mmol/L BUN 58 H (7-18) mg/dL Creatinine 1.80 H (0.51-1.17) mg/dL Est Cr Clr Drug Dosing 22.04 mL/min Estimated GFR (MDRD) 27 mL/min Glucose 163 H (74-106) mg/dL POC Glucose 166 H (65-110) mg/dl Calcium 7.8 L (8.5-10.1) mg/dL Magnesium (1.8-2.4) mg/dL Iron (50-175) ug/dL TIBC (250-450) ug/dL % Saturation Total Bilirubin (0.2-1.0) mg/dL AST (15-37) U/L ALT (12-78) U/L Alkaline Phosphatase (46-116) IU/L Creatine Kinase 72 (26-308) U/L Creatine Kinase Index 1.8 (0.0-2.5) % CK-MB (CK-2) 1.30 (0.00-3.60) ng/mL Troponin I 0.011 (0.000-0.056) ng/mL NT-Pro-B Natriuret Pep 9942 H (0-125) pg/mL Total Protein (6.4-8.2) g/dL Albumin (3.4-5.0) g/dL Specimen Type Urine Color Urine Appearance Urine pH (5.0-9.0) Ur Specific [place] (1.005-1.030) Urine Protein (NEGATIVE) mg/dL Urine Glucose (UA) (NEGATIVE) mg/dL Urine Ketones (NEGATIVE) mg/dL Urine Occult Blood (NEGATIVE) Urine Nitrite (NEGATIVE) Urine Bilirubin (NEGATIVE) Urine Urobilinogen (0.2-1.0) E.U./dL Ur Leukocyte Esterase (NEGATIVE) U Hyaline Cast (Auto) Urine RBC /HPF Urine WBC /HPF Ur Epithelial Cells /LPF Urine Bacteria (NONE TO FEW) /HPF 12/05/19 12/05/19 12/05/19 Range/Units 07:20 11:41 17:19 WBC (4.0-10.2) K/uL RBC (3.77-5.09) M/uL Hgb (11.7-15.5) g/dL Hct (34.0-46.0) % MCV (84.0-98.0) fL MCH (28.2-33.3) pg MCHC (31.7-36.0) g/dL RDW (11.2-14.1) % Plt Count (150-350) K/uL Neut % (Auto) (45.0-80.0) % Lymph % (Auto) (10.0-50.0) % [place] % (Auto) (2.0-14.0) % Eos % (Auto) (0.0-5.0) % Baso % (Auto) (0.0-2.0) % Neut # (Auto) (1.40-7.00) K/uL Lymph # (Auto) (0.50-3.50) K/uL [place] # (Auto) (0.00-1.00) K/uL Eos # (Auto) (0.00-0.50) K/uL Baso # (Auto) (0.00-0.20) K/uL D-Dimer, Quantitative (0-400) ng/mL Sodium (136-145) mmol/L Potassium (3.5-5.1) mmol/L Chloride (98-107) mmol/L Carbon Dioxide (21.0-32.0) mmol/L BUN (7-18) mg/dL Creatinine (0.51-1.17) mg/dL Est Cr Clr Drug Dosing mL/min Estimated GFR (MDRD) mL/min Glucose (74-106) mg/dL POC Glucose 125 H 159 H (65-110) mg/dl Calcium (8.5-10.1) mg/dL Magnesium (1.8-2.4) mg/dL Iron (50-175) ug/dL TIBC (250-450) ug/dL % Saturation Total Bilirubin (0.2-1.0) mg/dL AST (15-37) U/L ALT (12-78) U/L Alkaline Phosphatase (46-116) IU/L Creatine Kinase (26-308) U/L Creatine Kinase Index (0.0-2.5) % CK-MB (CK-2) (0.00-3.60) ng/mL Troponin I (0.000-0.056) ng/mL NT-Pro-B Natriuret Pep (0-125) pg/mL Total Protein (6.4-8.2) g/dL Albumin (3.4-5.0) g/dL Specimen Type Urinblad Urine Color Yellow Urine Appearance Clear Urine pH 6.0 (5.0-9.0) Ur Specific [place] 1.025 (1.005-1.030) Urine Protein >=300 H (NEGATIVE) mg/dL Urine Glucose (UA) 100 H (NEGATIVE) mg/dL Urine Ketones Negative (NEGATIVE) mg/dL Urine Occult Blood Small H (NEGATIVE) Urine Nitrite Negative (NEGATIVE) Urine Bilirubin Negative (NEGATIVE) Urine Urobilinogen 0.2 (0.2-1.0) E.U./dL Ur Leukocyte Esterase Negative (NEGATIVE) U Hyaline Cast (Auto) Urine RBC 30-40 H /HPF Urine WBC 10-20 H /HPF Ur Epithelial Cells Moderate H /LPF Urine Bacteria Few (NONE TO FEW) /HPF 12/05/19 12/06/19 12/06/19 Range/Units 20:33 07:20 07:21 WBC 8.7 (4.0-10.2) K/uL RBC 3.48 L (3.77-5.09) M/uL Hgb 9.8 L (11.7-15.5) g/dL Hct 32.5 L (34.0-46.0) % MCV 93.4 (84.0-98.0) fL MCH 28.2 (28.2-33.3) pg MCHC 30.2 L (31.7-36.0) g/dL RDW 13.8 (11.2-14.1) % Plt Count 174 (150-350) K/uL Neut % (Auto) 62.4 (45.0-80.0) % Lymph % (Auto) 25.8 (10.0-50.0) % [place] % (Auto) 8.9 (2.0-14.0) % Eos % (Auto) 2.8 (0.0-5.0) % Baso % (Auto) 0.1 (0.0-2.0) % Neut # (Auto) 5.44 (1.40-7.00) K/uL Lymph # (Auto) 2.25 (0.50-3.50) K/uL [place] # (Auto) 0.78 (0.00-1.00) K/uL Eos # (Auto) 0.24 (0.00-0.50) K/uL Baso # (Auto) 0.01 (0.00-0.20) K/uL D-Dimer, Quantitative (0-400) ng/mL Sodium (136-145) mmol/L Potassium (3.5-5.1) mmol/L Chloride (98-107) mmol/L Carbon Dioxide (21.0-32.0) mmol/L BUN (7-18) mg/dL Creatinine (0.51-1.17) mg/dL Est Cr Clr Drug Dosing mL/min Estimated GFR (MDRD) mL/min Glucose (74-106) mg/dL POC Glucose 202 H 144 H (65-110) mg/dl Calcium (8.5-10.1) mg/dL Magnesium (1.8-2.4) mg/dL Iron (50-175) ug/dL TIBC (250-450) ug/dL % Saturation Total Bilirubin (0.2-1.0) mg/dL AST (15-37) U/L ALT (12-78) U/L Alkaline Phosphatase (46-116) IU/L Creatine Kinase (26-308) U/L Creatine Kinase Index (0.0-2.5) % CK-MB (CK-2) (0.00-3.60) ng/mL Troponin I (0.000-0.056) ng/mL NT-Pro-B Natriuret Pep (0-125) pg/mL Total Protein (6.4-8.2) g/dL Albumin (3.4-5.0) g/dL Specimen Type Urine Color Urine Appearance Urine pH (5.0-9.0) Ur Specific [place] (1.005-1.030) Urine Protein (NEGATIVE) mg/dL Urine Glucose (UA) (NEGATIVE) mg/dL Urine Ketones (NEGATIVE) mg/dL Urine Occult Blood (NEGATIVE) Urine Nitrite (NEGATIVE) Urine Bilirubin (NEGATIVE) Urine Urobilinogen (0.2-1.0) E.U./dL Ur Leukocyte Esterase (NEGATIVE) U Hyaline Cast (Auto) Urine RBC /HPF Urine WBC /HPF Ur Epithelial Cells /LPF Urine Bacteria (NONE TO FEW) /HPF 12/06/19 12/06/19 12/06/19 Range/Units 07:21 07:21 11:41 WBC (4.0-10.2) K/uL RBC (3.77-5.09) M/uL Hgb (11.7-15.5) g/dL Hct (34.0-46.0) % MCV (84.0-98.0) fL MCH (28.2-33.3) pg MCHC (31.7-36.0) g/dL RDW (11.2-14.1) % Plt Count (150-350) K/uL Neut % (Auto) (45.0-80.0) % Lymph % (Auto) (10.0-50.0) % [place] % (Auto) (2.0-14.0) % Eos % (Auto) (0.0-5.0) % Baso % (Auto) (0.0-2.0) % Neut # (Auto) (1.40-7.00) K/uL Lymph # (Auto) (0.50-3.50) K/uL [place] # (Auto) (0.00-1.00) K/uL Eos # (Auto) (0.00-0.50) K/uL Baso # (Auto) (0.00-0.20) K/uL D-Dimer, Quantitative (0-400) ng/mL Sodium 144 (136-145) mmol/L Potassium 4.3 (3.5-5.1) mmol/L Chloride 110 H (98-107) mmol/L Carbon Dioxide 29.1 (21.0-32.0) mmol/L BUN 58 H (7-18) mg/dL Creatinine 1.69 H (0.51-1.17) mg/dL Est Cr Clr Drug Dosing 23.48 mL/min Estimated GFR (MDRD) 29 mL/min Glucose 164 H (74-106) mg/dL POC Glucose 173 H (65-110) mg/dl Calcium 8.2 L (8.5-10.1) mg/dL Magnesium 2.0 (1.8-2.4) mg/dL Iron 38 L (50-175) ug/dL TIBC 229 L (250-450) ug/dL % Saturation [id number] Total Bilirubin (0.2-1.0) mg/dL AST (15-37) U/L ALT (12-78) U/L Alkaline Phosphatase (46-116) IU/L Creatine Kinase 49 (26-308) U/L Creatine Kinase Index 1.6 (0.0-2.5) % CK-MB (CK-2) 0.80 (0.00-3.60) ng/mL Troponin I 0.003 (0.000-0.056) ng/mL NT-Pro-B Natriuret Pep 8233 H (0-125) pg/mL Total Protein (6.4-8.2) g/dL Albumin (3.4-5.0) g/dL Specimen Type Urine Color Urine Appearance Urine pH (5.0-9.0) Ur Specific [place] (1.005-1.030) Urine Protein (NEGATIVE) mg/dL Urine Glucose (UA) (NEGATIVE) mg/dL Urine Ketones (NEGATIVE) mg/dL Urine Occult Blood (NEGATIVE) Urine Nitrite (NEGATIVE) Urine Bilirubin (NEGATIVE) Urine Urobilinogen (0.2-1.0) E.U./dL Ur Leukocyte Esterase (NEGATIVE) U Hyaline Cast (Auto) Urine RBC /HPF Urine WBC /HPF Ur Epithelial Cells /LPF Urine Bacteria (NONE TO FEW) /HPF 12/06/19 12/06/19 12/07/19 Range/Units 17:03 20:09 07:16 WBC (4.0-10.2) K/uL RBC (3.77-5.09) M/uL Hgb (11.7-15.5) g/dL Hct (34.0-46.0) % MCV (84.0-98.0) fL MCH (28.2-33.3) pg MCHC (31.7-36.0) g/dL RDW (11.2-14.1) % Plt Count (150-350) K/uL Neut % (Auto) (45.0-80.0) % Lymph % (Auto) (10.0-50.0) % [place] % (Auto) (2.0-14.0) % Eos % (Auto) (0.0-5.0) % Baso % (Auto) (0.0-2.0) % Neut # (Auto) (1.40-7.00) K/uL Lymph # (Auto) (0.50-3.50) K/uL [place] # (Auto) (0.00-1.00) K/uL Eos # (Auto) (0.00-0.50) K/uL Baso # (Auto) (0.00-0.20) K/uL D-Dimer, Quantitative (0-400) ng/mL Sodium (136-145) mmol/L Potassium (3.5-5.1) mmol/L Chloride (98-107) mmol/L Carbon Dioxide (21.0-32.0) mmol/L BUN (7-18) mg/dL Creatinine (0.51-1.17) mg/dL Est Cr Clr Drug Dosing mL/min Estimated GFR (MDRD) mL/min Glucose (74-106) mg/dL POC Glucose 137 H 143 H 156 H (65-110) mg/dl Calcium (8.5-10.1) mg/dL Magnesium (1.8-2.4) mg/dL Iron (50-175) ug/dL TIBC (250-450) ug/dL % Saturation Total Bilirubin (0.2-1.0) mg/dL AST (15-37) U/L ALT (12-78) U/L Alkaline Phosphatase (46-116) IU/L Creatine Kinase (26-308) U/L Creatine Kinase Index (0.0-2.5) % CK-MB (CK-2) (0.00-3.60) ng/mL Troponin I (0.000-0.056) ng/mL NT-Pro-B Natriuret Pep (0-125) pg/mL Total Protein (6.4-8.2) g/dL Albumin (3.4-5.0) g/dL Specimen Type Urine Color Urine Appearance Urine pH (5.0-9.0) Ur Specific [place] (1.005-1.030) Urine Protein (NEGATIVE) mg/dL Urine Glucose (UA) (NEGATIVE) mg/dL Urine Ketones (NEGATIVE) mg/dL Urine Occult Blood (NEGATIVE) Urine Nitrite (NEGATIVE) Urine Bilirubin (NEGATIVE) Urine Urobilinogen (0.2-1.0) E.U./dL Ur Leukocyte Esterase (NEGATIVE) U Hyaline Cast (Auto) Urine RBC /HPF Urine WBC /HPF Ur Epithelial Cells /LPF Urine Bacteria (NONE TO FEW) /HPF 12/07/19 12/07/19 Range/Units 07:17 07:17 WBC 9.0 (4.0-10.2) K/uL RBC 3.67 L (3.77-5.09) M/uL Hgb 10.4 L (11.7-15.5) g/dL Hct 34.2 (34.0-46.0) % MCV 93.2 (84.0-98.0) fL MCH 28.3 (28.2-33.3) pg MCHC 30.4 L (31.7-36.0) g/dL RDW 13.9 (11.2-14.1) % Plt Count 189 (150-350) K/uL Neut % (Auto) 60.2 (45.0-80.0) % Lymph % (Auto) 28.6 (10.0-50.0) % [place] % (Auto) 7.1 (2.0-14.0) % Eos % (Auto) 4.0 (0.0-5.0) % Baso % (Auto) 0.1 (0.0-2.0) % Neut # (Auto) 5.40 (1.40-7.00) K/uL Lymph # (Auto) 2.57 (0.50-3.50) K/uL [place] # (Auto) 0.64 (0.00-1.00) K/uL Eos # (Auto) 0.36 (0.00-0.50) K/uL Baso # (Auto) 0.01 (0.00-0.20) K/uL D-Dimer, Quantitative (0-400) ng/mL Sodium 144 (136-145) mmol/L Potassium 4.4 (3.5-5.1) mmol/L Chloride 109 H (98-107) mmol/L Carbon Dioxide 29.8 (21.0-32.0) mmol/L BUN 56 H (7-18) mg/dL Creatinine 1.64 H (0.51-1.17) mg/dL Est Cr Clr Drug Dosing 24.19 mL/min Estimated GFR (MDRD) 30 mL/min Glucose 160 H (74-106) mg/dL POC Glucose (65-110) mg/dl Calcium 8.5 (8.5-10.1) mg/dL Magnesium (1.8-2.4) mg/dL Iron (50-175) ug/dL TIBC (250-450) ug/dL % Saturation Total Bilirubin (0.2-1.0) mg/dL AST (15-37) U/L ALT (12-78) U/L Alkaline Phosphatase (46-116) IU/L Creatine Kinase (26-308) U/L Creatine Kinase Index (0.0-2.5) % CK-MB (CK-2) (0.00-3.60) ng/mL Troponin I (0.000-0.056) ng/mL NT-Pro-B Natriuret Pep 6931 H (0-125) pg/mL Total Protein (6.4-8.2) g/dL Albumin (3.4-5.0) g/dL Specimen Type Urine Color Urine Appearance Urine pH (5.0-9.0) Ur Specific [place] (1.005-1.030) Urine Protein (NEGATIVE) mg/dL Urine Glucose (UA) (NEGATIVE) mg/dL Urine Ketones (NEGATIVE) mg/dL Urine Occult Blood (NEGATIVE) Urine Nitrite (NEGATIVE) Urine Bilirubin (NEGATIVE) Urine Urobilinogen (0.2-1.0) E.U./dL Ur Leukocyte Esterase (NEGATIVE) U Hyaline Cast (Auto) Urine RBC /HPF Urine WBC /HPF Ur Epithelial Cells /LPF Urine Bacteria (NONE TO FEW) /HPF [facility] Results - Last 24 hrs: Microbiology 12/05/19 19:20 Urine Culture - Preliminary Urine, Clean Catch MIXED POSITIVE NISA DAY 1 Microbiology 12/05/19 19:20 Urine, Clean Catch Urine Culture - Preliminary MIXED POSITIVE NISA DAY 1 12/03/19 10:50 Urine, Voided Urine Culture - Final NO GROWTH AFTER 2 DAYS 12/03/19 14:57 Stool / Feces Stool Occult Blood (FAYE) - Final NEGATIVE OCCULT BLOOD REFERENCE RANGE: NEGATIVE Med Orders - Current: Current Medications Acetaminophen (Tylenol) 650 mg PO Q4H PRN PRN Reason: analgesia/fever Last Admin: 12/06/19 17:54 Dose: 650 mg Documented by: Albuterol (Proair Hfa) 1 gm INH Q2H PRN PRN Reason: Shortness of Breath Albuterol/Ipratropium (Combivent Respimat) 1 gm INH QID [facility] Last Admin: 12/07/19 07:32 Dose: 2 puff Documented by: Aspirin (Halfprin) 81 mg PO DAILY [facility] Last Admin: 12/07/19 07:45 Dose: 81 mg Documented by: Atorvastatin Calcium (Lipitor) 40 mg PO BEDTIME [facility] Last Admin: 12/06/19 20:06 Dose: 40 mg Documented by: Bisacodyl (Dulcolax) 10 mg RECTAL DAILY PRN PRN Reason: Constipation Calcium Carbonate/Glycine (Tums Extra Strength) 1,500 mg PO BEDTIME [facility] Last Admin: 12/06/19 20:06 Dose: 1,500 mg Documented by: Carvedilol (Coreg) 12.5 mg PO QPM [facility] Last Admin: 12/06/19 17:07 Dose: 12.5 mg Documented by: Carvedilol (Coreg) 25 mg PO QAM [facility] Last Admin: 12/07/19 07:45 Dose: 25 mg Documented by: Dorzolamide HCl (Trusopt 2% Ophth Soln) 1 ml EYEBOTH BID [facility] Last Admin: 12/07/19 07:37 Dose: 1 drop Documented by: Ferrous Sulfate (Ferrous Sulfate) 325 mg PO BID [facility] Last Admin: 12/07/19 07:45 Dose: 325 mg Documented by: Furosemide (Lasix) 40 mg IVPUSH BID [facility] Last Admin: 12/07/19 07:43 Dose: 40 mg Documented by: Insulin Glargine (Lantus) 10 unit SUBCUT DAILY [facility] Last Admin: 12/07/19 07:34 Dose: 10 units Documented by: Insulin Human Lispro (Humalog) 10 unit SUBCUT TID [facility] Last Admin: 12/07/19 07:33 Dose: 10 units Documented by: Insulin Human Regular (Humulin R) 0 unit SUBCUT QIDACANDBED [facility]; Protocol Last Admin: 12/07/19 07:32 Dose: Not Given Documented by: Latanoprost (Xalatan 0.005% Ophth Soln) 0 ml EYEBOTH BEDTIME [facility] Last Admin: 12/06/19 20:07 Dose: 1 drop Documented by: Loperamide HCl (Imodium Ad) 2 mg PO Q6H PRN PRN Reason: Diarrhea Losartan Potassium (Cozaar) 50 mg PO BID [facility] Last Admin: 12/07/19 07:46 Dose: 50 mg Documented by: Neomycin/Polymyxin/Bacitracin (Triple Antibiotic Oint) 1 each TOP DAILY [facility] Last Admin: 12/07/19 07:44 Dose: 1 each Documented by: Nitrofurantoin Macrocrystals (Macrobid) 100 mg PO DAILY [facility] Last Admin: 12/07/19 07:45 Dose: 100 mg Documented by: Nitroglycerin (Nitrostat) 0.4 mg SL ASDIRECTED PRN PRN Reason: Chest Pain Potassium Chloride (Klor-Con M20) 20 meq PO BID [facility] Last Admin: 12/07/19 07:45 Dose: 20 meq Documented by: Sodium Chloride (Saline Flush) 10 ml FLUSH ASDIRECTED PRN PRN Reason: Keep Vein Open Last Admin: 12/07/19 07:42 Dose: 10 ml Documented by: Discontinued Medications Albuterol/Ipratropium (Duoneb 3.0-0.5 Mg/3 Ml) 3 ml NEB ONETIME ONE Stop: 12/02/19 05:28 Last Admin: 12/02/19 06:09 Dose: 3 ml Documented by: Albuterol/Ipratropium (Duoneb 3.0-0.5 Mg/3 Ml) 3 ml NEB QID [facility] Bumetanide (Bumex) 1 mg PO DAILY [facility] Last Admin: 12/05/19 07:43 Dose: 1 mg Documented by: Clonidine HCl (Catapres) 0.1 mg PO ONETIME ONE Stop: 12/02/19 06:12 Last Admin: 12/02/19 06:16 Dose: 0.1 mg Documented by: Enoxaparin Sodium (Lovenox) 40 mg SUBCUT DAILY [facility] Last Admin: 12/04/19 19:52 Dose: Not Given Documented by: Ferrous Sulfate (Ferrous Sulfate) 325 mg PO DAILY [facility] Last Admin: 12/06/19 07:28 Dose: 325 mg Documented by: Furosemide (Lasix) 40 mg IVPUSH DAILY [facility] Last Admin: 12/04/19 09:15 Dose: Not Given Documented by: Furosemide (Lasix) 40 mg IVPUSH Q8H [facility] Last Admin: 12/05/19 12:17 Dose: Not Given Documented by: Ceftriaxone Sodium 1 gm/ (Sodium Chloride) 100 mls @ 200 mls/hr IV Q24H [facility] Last Admin: 12/05/19 07:43 Dose: 200 mls/hr Documented by: Insulin Human Regular (Humulin R) 0 unit SUBCUT QID [facility]; Protocol Last Admin: 12/04/19 11:38 Dose: Not Given Documented by: Levofloxacin (Levaquin) 500 mg PO Q24H [facility] Last Admin: 12/06/19 07:28 Dose: 500 mg Documented by: Lidocaine/Epinephrine (Xylocaine 2% With Epinephrine 1:100,000) 20 ml INJECT ONETIME ONE Stop: 12/03/19 12:36 Last Admin: 12/03/19 13:10 Dose: 20 ml Documented by: Losartan Potassium (Cozaar) 50 mg PO DAILY [facility] Last Admin: 12/06/19 07:28 Dose: 50 mg Documented by: Methylprednisolone Sodium Succinate (Solu-Medrol) 125 mg IVPUSH DAILY [facility] Last Admin: 12/04/19 09:16 Dose: Not Given Documented by: Potassium Chloride (Klor-Con M20) 20 meq PO TID [facility] Last Admin: 12/06/19 07:28 Dose: 20 meq Documented by: - Exam Quality Assessment: Reports: DVT Prophylaxis. Denies: Supplemental Oxygen, Central Line/PICC, Urine Catheter, Skin Breakdown, Restraints General: Reports: Alert, Oriented, Cooperative, No Acute Distress HEENT: Reports: Pupils Equal, Pupils Reactive, EOMI, Mucous Membr. Moist/[place], Other (Patient is wearing glasses). Denies: Scleral Icterus Neck: Reports: Supple, Trachea Midline, No JVD, No Thyromegaly, Carotid Bruit (Mild bilateral carotid bruits) Lungs: Reports: Normal Respiratory Effort, Decreased Breath Sounds (Right base secondary to elevated hemidiaphragm), Rales (Mild bilateral basilar). Denies: Rhonchi, Rub, Wheezing Cardiovascular: Reports: Regular Rate, Regular Rhythm, No Murmurs. Denies: Gallops, Rubs GI/Abdominal Exam: Normal Bowel Sounds, Soft, Non-Tender, No Organomegaly, No Distention, No Abnormal Bruit, No Mass, Other (Obese). No: Guarding (Female) Exam: Deferred Rectal (Female) Exam: Deferred Back Exam: Reports: Full Range of Motion, Other (Mild kyphosis). Denies: CVA Tenderness (L), CVA Tenderness (R), Decreased Range of Motion, Muscle Spasm, Paraspinal Tenderness, Vertebral Tenderness Extremities: Normal Inspection, Normal Range of Motion, Non-Tender, No Pedal Edema, Normal Capillary Refill. No: Charlee's Sign Skin: Reports: Warm, Dry, Intact Neurological: Reports: No New Focal Deficit Psy/Mental Status: Reports: Alert, Normal Affect, Normal Mood. Denies: Agitated, Hallucinations, Withdrawal Symptoms
== END 2019-12-07 14:30 | disposition home or self-care (01) | DRG 264 ==
LOC: LL.ED 05:13 → LL.MS 07:55 → UNDOADMIN 08:00 → LL.MS 08:00
PROVIDERS: ADMIT Family Medicine; ATTEND Emergency Medicine
PROC: 0JB70ZZ Excision of Back Subcutaneous Tissue and Fascia, Open Approach (ICD-10-PCS; principal; 2019-12-03)
DX: I13.0 Hypertensive heart and chronic kidney disease with heart failure and stage 1 through stage 4 chronic kidney disease, or unspecified chronic kidney disease (principal); I50.43 Acute on chronic combined systolic (congestive) and diastolic (congestive) heart failure; J44.1 Chronic obstructive pulmonary disease with (acute) exacerbation; I11.0 Hypertensive heart disease with heart failure; I25.118 Atherosclerotic heart disease of native coronary artery with other forms of angina pectoris; J18.9 Pneumonia, unspecified organism; N30.01 Acute cystitis with hematuria; N18.9 Chronic kidney disease, unspecified; L72.0 Epidermal cyst; I42.8 Other cardiomyopathies; J43.1 Panlobular emphysema; N18.3 Chronic kidney disease, stage 3 (moderate); D63.1 Anemia in chronic kidney disease; E11.22 Type 2 diabetes mellitus with diabetic chronic kidney disease; E83.51 Hypocalcemia; Z87.898 Personal history of other specified conditions; Z99.81 Dependence on supplemental oxygen; H40.9 Unspecified glaucoma; H91.90 Unspecified hearing loss, unspecified ear; H54.7 Unspecified visual loss; H91.13 Presbycusis, bilateral; Z88.6 Allergy status to analgesic agent; I49.9 Cardiac arrhythmia, unspecified; E78.00 Pure hypercholesterolemia, unspecified; I27.20 Pulmonary hypertension, unspecified; I34.0 Nonrheumatic mitral (valve) insufficiency; I25.10 Atherosclerotic heart disease of native coronary artery without angina pectoris; Z20.828 Contact with and (suspected) exposure to other viral communicable diseases; K52.9 Noninfective gastroenteritis and colitis, unspecified; K21.9 Gastro-esophageal reflux disease without esophagitis; K44.9 Diaphragmatic hernia without obstruction or gangrene; E11.21 Type 2 diabetes mellitus with diabetic nephropathy; R32 Unspecified urinary incontinence; N93.8 Other specified abnormal uterine and vaginal bleeding; M19.90 Unspecified osteoarthritis, unspecified site; G89.29 Other chronic pain; M54.9 Dorsalgia, unspecified; M54.2 Cervicalgia; G43.909 Migraine, unspecified, not intractable, without status migrainosus; E11.42 Type 2 diabetes mellitus with diabetic polyneuropathy; M21.372 Foot drop, left foot; E87.6 Hypokalemia; E83.42 Hypomagnesemia; Z96.652 Presence of left artificial knee joint; M85.80 Other specified disorders of bone density and structure, unspecified site; M81.0 Age-related osteoporosis without current pathological fracture; Z79.82 Long term (current) use of aspirin; Z79.4 Long term (current) use of insulin; Z79.899 Other long term (current) drug therapy; Z88.5 Allergy status to narcotic agent; Z87.01 Personal history of pneumonia (recurrent); Z90.710 Acquired absence of both cervix and uterus; Z98.49 Cataract extraction status, unspecified eye; Z90.89 Acquired absence of other organs; Z98.41 Cataract extraction status, right eye; Z98.42 Cataract extraction status, left eye; Z98.890 Other specified postprocedural states
CPT/HCPCS: 36415; 71046; 80048; 80053; 81001; 82272; 82550; 82553; 82962; 83540; 83550; 83735; 83880; 84484; 85025; 85379; 87086; 93005; 94640; 94761; 99222; 99232; 99239; 99285-25; A9270-GY; J0696; J1815-GY; J1940; J2930; J7050; J7620-GY

== ENCOUNTER 2020-05-30 11:54 | Inpatient (IN) | payer MEDICARE, OTHER ==
[2020-05-30] MEDS ORDERED: Ondansetron 4 MG/2 ML SDV IVPUSH ONE (12:24)
[2020-05-30] MEDS ORDERED: Sodium Chloride 0.9% 1,000 ML IV SCH ×2 (12:30→21:45)
[2020-05-30] MEDS ORDERED: Sodium Chloride 0.9% 1,000 ML IV ONE (13:41)
[2020-05-30] MEDS ORDERED: Sodium Polystyrene Sulfonate 15 GM/60 ML Susp 60 ML Bot PO ONE ×3 (13:42→19:00)
[2020-05-30] MEDS ORDERED: Prochlorperazine 10 MG/2 ML SDV IVPUSH ONE (13:55)
[2020-05-30] MEDS ORDERED: Albuterol 6.7 GM Inhaler INH PRN (13:58)
[2020-05-30] MEDS ORDERED: Nitroglycerin 0.4 MG Tab.SL SL PRN (13:58)
[2020-05-30] MEDS ORDERED: 50% Dextrose in Water 50 ML Syringe IV PRN ×2 (14:08→14:25)
[2020-05-30] MEDS ORDERED: Glucagon,Human Recombinant 1 MG Vial IM PRN ×2 (14:08→14:25)
[2020-05-30] MEDS ORDERED: 50% Dextrose in Water 50 ML Syringe IVPUSH ONE (14:17)
[2020-05-30] MEDS ORDERED: Insulin Regular, Human 100 Units/ML 3 ML Vial IV ONE (14:25)
[2020-05-30] MEDS: Sodium Chloride 0.9% 10 ML Syringe FLUSH PRN (14:46)
[2020-05-30] MEDS: Enoxaparin 30 MG/0.3 ML Syringe SUBCUT SCH (14:51)
[2020-05-30] MEDS: Albuterol/Ipratropium 3.0-0.5 MG/3 ML Neb Soln NEB SCH ×2 (16:29→19:22)
[2020-05-30] MEDS: Insulin Regular, Human 100 Units/ML 3 ML Vial SUBCUT SCH (17:59)
[2020-05-30] MEDS: Losartan 50 MG Tab PO SCH (18:00)
[2020-05-30] MEDS: Carvedilol 12.5 MG Tab PO SCH (18:01)
[2020-05-30] MEDS: Dorzolamide 2% Ophth Soln 10 ML Bottle EYEBOTH SCH (18:02)
[2020-05-30] MEDS: Latanoprost 0.005% Ophth Soln 2.5 ML Bottle EYEBOTH SCH (19:22)
[2020-05-30] MEDS: atorvaSTATin 40 MG Tab PO SCH (19:22)
[2020-05-31] MEDS: Acetaminophen 325 MG Tab PO PRN (03:49)
[2020-05-31] MEDS ORDERED: Sodium Polystyrene Sulfonate 15 GM/60 ML Susp 60 ML Bot PO ONE (08:00)
[2020-05-31] MEDS: Losartan 50 MG Tab PO SCH (08:31)
[2020-05-31] MEDS: Aspirin 81 MG Tab.EC PO SCH (08:31)
[2020-05-31] MEDS: Carvedilol 25 MG Tab PO SCH (08:32)
[2020-05-31] MEDS: Dorzolamide 2% Ophth Soln 10 ML Bottle EYEBOTH SCH ×2 (08:33→17:22)
[2020-05-31] MEDS: Albuterol/Ipratropium 3.0-0.5 MG/3 ML Neb Soln NEB SCH ×4 (08:33→19:27)
[2020-05-31] MEDS: Insulin Regular, Human 100 Units/ML 3 ML Vial SUBCUT SCH (08:33)
[2020-05-31] MEDS: Clotrimazole 1% Crm 30 GM Tube TOP SCH ×2 (11:11→17:21)
[2020-05-31] MEDS ORDERED: Bisacodyl 10 MG Supp RECTAL PRN (11:12)
[2020-05-31] MEDS ORDERED: Glucagon,Human Recombinant 1 MG Vial IM PRN (11:14)
[2020-05-31] MEDS ORDERED: 50% Dextrose in Water 50 ML Syringe IV PRN (11:14)
--- NOTE | 2020-05-31 11:21 | PCM.PN ---
- General Info Date of Service: 05/31/20 Admission Dx/Problem (Free Text): 1. Acute renal failure with history of chronic renal insufficiency 2. Hyperkalemia 3. CHF 4. Diabetes mellitus 5. Diarrhea with secondary dehydration Functional Status: Reports: Pain Controlled, Tolerating Diet, Ambulating, Urinating, Incentive Spirometry. Denies: New Symptoms Pain Score: 0 - Review of Systems General: Reports: Weakness (Generalized improving slowly). Denies: Fever, Fatigue, Malaise, Chills, Night Sweats, Appetite (Tolerating diet) HEENT: Reports: Glasses. Denies: Dysphasia, Ear Pain, Eye Pain, Headaches, Post Nasal Drip, Sinus Congestion, Sore Throat, Rhinitis, Visual Changes Pulmonary: Reports: No Symptoms. Denies: Shortness of Breath, Pleuritic Chest Pain, Cough, Sputum, Hemoptysis, Wheezing Cardiovascular: Reports: No Symptoms. Denies: Chest Pain, Palpitations, Dyspnea on Exertion, Orthopnea, PND, Edema, Lightheadedness Gastrointestinal: Reports: Diarrhea. Denies: Abdominal Pain, Decreased Appetite, Difficulty Swallowing, Flatus, Hematochezia, Melena, Nausea, Vomiting Genitourinary: Reports: Incontinence. Denies: Dysuria, Frequency, Burning, Pain, Urgency, Hematuria, Retention, Flank Pain Musculoskeletal: Reports: No Symptoms. Denies: Neck Pain, Shoulder Pain, Arm Pain, Back Pain, Leg Pain Skin: Reports: No Symptoms. Denies: Diaphoresis, Bruising Neurological: Reports: Weakness (Improving slowly). Denies: Confusion, Difficulty Walking Psychiatric: Reports: No Symptoms. Denies: Confusion, Depression, Anxiety, Agitation, Cravings, Hallucinations - Patient Data Vitals - Most Recent: Last Vital Signs Temp 36.6 C 05/31/20 08:00 Pulse 77 05/31/20 08:32 Resp 14 05/31/20 08:00 BP 116/72 05/31/20 08:32 Pulse Ox 96 05/31/20 08:00 Vital Signs - 24 hr 05/30/20 05/30/20 05/30/20 12:23 13:15 13:37 Temperature [ Oral] Temperature [ 36.7 C 36.2 C Temporal] Pulse, Peripheral Pulse, Peripheral [ Left Pulse Oximetry] Pulse, 78 77 Peripheral [ Right Pulse Oximetry] Respiratory 22 H 18 Rate Blood Pressure Blood Pressure [Left Upper Arm ] Blood Pressure 124/64 135/72 [Right Upper Arm] O2 Sat by Pulse 97 97 Oximetry O2 Sat by Pulse 96 Oximetry [Room Air] 05/30/20 05/30/20 05/30/20 15:00 18:00 18:01 Temperature [ 36.9 C Oral] Temperature [ 36.3 C Temporal] Pulse, 83 Peripheral Pulse, 83 Peripheral [ Left Pulse Oximetry] Pulse, 95 Peripheral [ Right Pulse Oximetry] Respiratory 20 20 Rate Blood Pressure 112/62 112/62 Blood Pressure 112/62 [Left Upper Arm ] Blood Pressure 156/76 H [Right Upper Arm] O2 Sat by Pulse 98 94 L Oximetry O2 Sat by Pulse Oximetry [Room Air] 05/31/20 05/31/20 05/31/20 00:00 08:00 08:31 Temperature [ Oral] Temperature [ 36.6 C 36.6 C Temporal] Pulse, Peripheral Pulse, 80 77 Peripheral [ Left Pulse Oximetry] Pulse, Peripheral [ Right Pulse Oximetry] Respiratory 20 14 Rate Blood Pressure 116/72 Blood Pressure 134/72 116/72 [Left Upper Arm ] Blood Pressure [Right Upper Arm] O2 Sat by Pulse 98 96 Oximetry O2 Sat by Pulse Oximetry [Room Air] 05/31/20 08:32 Temperature [ Oral] Temperature [ Temporal] Pulse, 77 Peripheral Pulse, Peripheral [ Left Pulse Oximetry] Pulse, Peripheral [ Right Pulse Oximetry] Respiratory Rate Blood Pressure 116/72 Blood Pressure [Left Upper Arm ] Blood Pressure [Right Upper Arm] O2 Sat by Pulse Oximetry O2 Sat by Pulse Oximetry [Room Air] Weight - Most Recent: 76.884 kg I&O - Last 24 Hours: Intake & Output 05/30/20 05/31/20 05/31/20 22:59 06:59 14:59 Intake Total 532 1059 120 Output Total 400 Balance 532 659 120 Imaging Impressions - Last 24 Hours: classroom monitor shows normal sinus rhythm with heart rate in the 70s Lab Results Last 24 Hours: Laboratory Results - last 24 hr 05/30/20 05/30/20 05/30/20 Range/Units 12:35 12:35 12:35 WBC 8.0 (4.0-10.2) K/uL RBC 4.04 (3.77-5.09) M/uL Hgb 12.4 D (11.7-15.5) g/dL Hct 38.8 (34.0-46.0) % MCV 96.0 (84.0-98.0) fL MCH 30.7 (28.2-33.3) pg MCHC 32.0 (31.7-36.0) g/dL RDW 13.0 (11.2-14.1) % Plt Count 155 (150-350) K/uL Neut % (Auto) 74.9 (45.0-80.0) % Lymph % (Auto) 17.9 (10.0-50.0) % [place] % (Auto) 4.3 (2.0-14.0) % Eos % (Auto) 2.4 (0.0-5.0) % Baso % (Auto) 0.5 (0.0-2.0) % Neut # (Auto) 5.97 (1.40-7.00) K/uL Lymph # (Auto) 1.43 (0.50-3.50) K/uL [place] # (Auto) 0.34 (0.00-1.00) K/uL Eos # (Auto) 0.19 (0.00-0.50) K/uL Baso # (Auto) 0.04 (0.00-0.20) K/uL Sodium (136-145) mmol/L Potassium (3.5-5.1) mmol/L Chloride (98-107) mmol/L Carbon Dioxide (21.0-32.0) mmol/L BUN (7-18) mg/dL Creatinine (0.51-1.17) mg/dL Est Cr Clr Drug Dosing mL/min Estimated GFR (MDRD) mL/min Glucose (70-99) mg/dL POC Glucose (65-110) mg/dl Lactic Acid 1.0 (0.4-2.0) mmol/L Calcium (8.5-10.1) mg/dL Magnesium 2.0 (1.8-2.4) mg/dL Total Bilirubin (0.2-1.0) mg/dL AST (15-37) U/L ALT (12-78) U/L Alkaline Phosphatase (46-116) IU/L Total Protein (6.4-8.2) g/dL Albumin (3.4-5.0) g/dL Specimen Type Urine Color Urine Appearance Urine pH (5.0-9.0) Ur Specific [place] (1.005-1.030) Urine Protein (NEGATIVE) mg/dL Urine Glucose (UA) (NEGATIVE) mg/dL Urine Ketones (NEGATIVE) mg/dL Urine Occult Blood (NEGATIVE) Urine Nitrite (NEGATIVE) Urine Bilirubin (NEGATIVE) Urine Urobilinogen (0.2-1.0) E.U./dL Ur Leukocyte Esterase (NEGATIVE) Urine RBC /HPF Urine WBC /HPF Ur Epithelial Cells /LPF Urine Bacteria (NONE TO FEW) /HPF SARS-CoV-2 RNA (REUBEN) (NEGATIVE) 05/30/20 05/30/20 05/30/20 Range/Units 12:35 14:10 14:31 WBC (4.0-10.2) K/uL RBC (3.77-5.09) M/uL Hgb (11.7-15.5) g/dL Hct (34.0-46.0) % MCV (84.0-98.0) fL MCH (28.2-33.3) pg MCHC (31.7-36.0) g/dL RDW (11.2-14.1) % Plt Count (150-350) K/uL Neut % (Auto) (45.0-80.0) % Lymph % (Auto) (10.0-50.0) % [place] % (Auto) (2.0-14.0) % Eos % (Auto) (0.0-5.0) % Baso % (Auto) (0.0-2.0) % Neut # (Auto) (1.40-7.00) K/uL Lymph # (Auto) (0.50-3.50) K/uL [place] # (Auto) (0.00-1.00) K/uL Eos # (Auto) (0.00-0.50) K/uL Baso # (Auto) (0.00-0.20) K/uL Sodium 138 (136-145) mmol/L Potassium 7.4 H* D (3.5-5.1) mmol/L Chloride 106 (98-107) mmol/L Carbon Dioxide 19.9 L (21.0-32.0) mmol/L BUN 123 H* D (7-18) mg/dL Creatinine 3.58 H* D (0.51-1.17) mg/dL Est Cr Clr Drug Dosing 9.34 mL/min Estimated GFR (MDRD) 12 mL/min Glucose 178 H (70-99) mg/dL POC Glucose (65-110) mg/dl Lactic Acid (0.4-2.0) mmol/L Calcium 8.6 (8.5-10.1) mg/dL Magnesium (1.8-2.4) mg/dL Total Bilirubin 0.5 (0.2-1.0) mg/dL AST 21 (15-37) U/L ALT 22 (12-78) U/L Alkaline Phosphatase 103 (46-116) IU/L Total Protein 8.1 (6.4-8.2) g/dL Albumin 3.7 (3.4-5.0) g/dL Specimen Type Urinblad Urine Color Yellow Urine Appearance Cloudy Urine pH 5.0 (5.0-9.0) Ur Specific [place] 1.015 (1.005-1.030) Urine Protein 100 H (NEGATIVE) mg/dL Urine Glucose (UA) Negative (NEGATIVE) mg/dL Urine Ketones Negative (NEGATIVE) mg/dL Urine Occult Blood Small H (NEGATIVE) Urine Nitrite Negative (NEGATIVE) Urine Bilirubin Negative (NEGATIVE) Urine Urobilinogen 0.2 (0.2-1.0) E.U./dL Ur Leukocyte Esterase Large H (NEGATIVE) Urine RBC 0-5 /HPF Urine WBC 50-75 H /HPF Ur Epithelial Cells /LPF Urine Bacteria Few (NONE TO FEW) /HPF SARS-CoV-2 RNA (REUBEN) Negative (NEGATIVE) 05/30/20 05/30/20 05/30/20 Range/Units 14:45 17:13 18:45 WBC (4.0-10.2) K/uL RBC (3.77-5.09) M/uL Hgb (11.7-15.5) g/dL Hct (34.0-46.0) % MCV (84.0-98.0) fL MCH (28.2-33.3) pg MCHC (31.7-36.0) g/dL RDW (11.2-14.1) % Plt Count (150-350) K/uL Neut % (Auto) (45.0-80.0) % Lymph % (Auto) (10.0-50.0) % [place] % (Auto) (2.0-14.0) % Eos % (Auto) (0.0-5.0) % Baso % (Auto) (0.0-2.0) % Neut # (Auto) (1.40-7.00) K/uL Lymph # (Auto) (0.50-3.50) K/uL [place] # (Auto) (0.00-1.00) K/uL Eos # (Auto) (0.00-0.50) K/uL Baso # (Auto) (0.00-0.20) K/uL Sodium (136-145) mmol/L Potassium 6.8 H* (3.5-5.1) mmol/L Chloride (98-107) mmol/L Carbon Dioxide (21.0-32.0) mmol/L BUN (7-18) mg/dL Creatinine (0.51-1.17) mg/dL Est Cr Clr Drug Dosing mL/min Estimated GFR (MDRD) mL/min Glucose (70-99) mg/dL POC Glucose 141 H 97 (65-110) mg/dl Lactic Acid (0.4-2.0) mmol/L Calcium (8.5-10.1) mg/dL Magnesium (1.8-2.4) mg/dL Total Bilirubin (0.2-1.0) mg/dL AST (15-37) U/L ALT (12-78) U/L Alkaline Phosphatase (46-116) IU/L Total Protein (6.4-8.2) g/dL Albumin (3.4-5.0) g/dL Specimen Type Urine Color Urine Appearance Urine pH (5.0-9.0) Ur Specific [place] (1.005-1.030) Urine Protein (NEGATIVE) mg/dL Urine Glucose (UA) (NEGATIVE) mg/dL Urine Ketones (NEGATIVE) mg/dL Urine Occult Blood (NEGATIVE) Urine Nitrite (NEGATIVE) Urine Bilirubin (NEGATIVE) Urine Urobilinogen (0.2-1.0) E.U./dL Ur Leukocyte Esterase (NEGATIVE) Urine RBC /HPF Urine WBC /HPF Ur Epithelial Cells /LPF Urine Bacteria (NONE TO FEW) /HPF SARS-CoV-2 RNA (REUBEN) (NEGATIVE) 05/30/20 05/31/20 05/31/20 Range/Units 19:21 07:04 07:04 WBC 8.2 (4.0-10.2) K/uL RBC 3.28 L (3.77-5.09) M/uL Hgb 9.8 L D (11.7-15.5) g/dL Hct 32.1 L (34.0-46.0) % MCV 97.9 (84.0-98.0) fL MCH 29.9 (28.2-33.3) pg MCHC 30.5 L (31.7-36.0) g/dL RDW 13.2 (11.2-14.1) % Plt Count 140 L (150-350) K/uL Neut % (Auto) 52.2 (45.0-80.0) % Lymph % (Auto) 32.7 (10.0-50.0) % [place] % (Auto) 10.0 (2.0-14.0) % Eos % (Auto) 4.7 (0.0-5.0) % Baso % (Auto) 0.4 (0.0-2.0) % Neut # (Auto) 4.27 (1.40-7.00) K/uL Lymph # (Auto) 2.67 (0.50-3.50) K/uL [place] # (Auto) 0.82 (0.00-1.00) K/uL Eos # (Auto) 0.38 (0.00-0.50) K/uL Baso # (Auto) 0.03 (0.00-0.20) K/uL Sodium 144 (136-145) mmol/L Potassium 5.5 H (3.5-5.1) mmol/L Chloride 113 H (98-107) mmol/L Carbon Dioxide 19.3 L (21.0-32.0) mmol/L BUN 104 H* (7-18) mg/dL Creatinine 3.30 H* (0.51-1.17) mg/dL Est Cr Clr Drug Dosing 10.14 mL/min Estimated GFR (MDRD) 13 mL/min Glucose 91 (70-99) mg/dL POC Glucose 86 (65-110) mg/dl Lactic Acid (0.4-2.0) mmol/L Calcium 8.2 L (8.5-10.1) mg/dL Magnesium (1.8-2.4) mg/dL Total Bilirubin 0.6 (0.2-1.0) mg/dL AST 11 L (15-37) U/L ALT 15 (12-78) U/L Alkaline Phosphatase 65 (46-116) IU/L Total Protein 6.1 L (6.4-8.2) g/dL Albumin 2.8 L (3.4-5.0) g/dL Specimen Type Urine Color Urine Appearance Urine pH (5.0-9.0) Ur Specific [place] (1.005-1.030) Urine Protein (NEGATIVE) mg/dL Urine Glucose (UA) (NEGATIVE) mg/dL Urine Ketones (NEGATIVE) mg/dL Urine Occult Blood (NEGATIVE) Urine Nitrite (NEGATIVE) Urine Bilirubin (NEGATIVE) Urine Urobilinogen (0.2-1.0) E.U./dL Ur Leukocyte Esterase (NEGATIVE) Urine RBC /HPF Urine WBC /HPF Ur Epithelial Cells /LPF Urine Bacteria (NONE TO FEW) /HPF SARS-CoV-2 RNA (REUBEN) (NEGATIVE) 05/31/20 05/31/20 05/31/20 Range/Units 07:13 10:02 11:12 WBC (4.0-10.2) K/uL RBC (3.77-5.09) M/uL Hgb (11.7-15.5) g/dL Hct (34.0-46.0) % MCV (84.0-98.0) fL MCH (28.2-33.3) pg MCHC (31.7-36.0) g/dL RDW (11.2-14.1) % Plt Count (150-350) K/uL Neut % (Auto) (45.0-80.0) % Lymph % (Auto) (10.0-50.0) % [place] % (Auto) (2.0-14.0) % Eos % (Auto) (0.0-5.0) % Baso % (Auto) (0.0-2.0) % Neut # (Auto) (1.40-7.00) K/uL Lymph # (Auto) (0.50-3.50) K/uL [place] # (Auto) (0.00-1.00) K/uL Eos # (Auto) (0.00-0.50) K/uL Baso # (Auto) (0.00-0.20) K/uL Sodium (136-145) mmol/L Potassium (3.5-5.1) mmol/L Chloride (98-107) mmol/L Carbon Dioxide (21.0-32.0) mmol/L BUN (7-18) mg/dL Creatinine (0.51-1.17) mg/dL Est Cr Clr Drug Dosing mL/min Estimated GFR (MDRD) mL/min Glucose (70-99) mg/dL POC Glucose 84 118 H (65-110) mg/dl Lactic Acid (0.4-2.0) mmol/L Calcium (8.5-10.1) mg/dL Magnesium (1.8-2.4) mg/dL Total Bilirubin (0.2-1.0) mg/dL AST (15-37) U/L ALT (12-78) U/L Alkaline Phosphatase (46-116) IU/L Total Protein (6.4-8.2) g/dL Albumin (3.4-5.0) g/dL Specimen Type Urin[place] Urine Color Yellow Urine Appearance Cloudy Urine pH 5.0 (5.0-9.0) Ur Specific [place] 1.015 (1.005-1.030) Urine Protein 100 H (NEGATIVE) mg/dL Urine Glucose (UA) Negative (NEGATIVE) mg/dL Urine Ketones Negative (NEGATIVE) mg/dL Urine Occult Blood Moderate H (NEGATIVE) Urine Nitrite Negative (NEGATIVE) Urine Bilirubin Negative (NEGATIVE) Urine Urobilinogen 0.2 (0.2-1.0) E.U./dL Ur Leukocyte Esterase Large H (NEGATIVE) Urine RBC 5-10 H /HPF Urine WBC Packed /HPF Ur Epithelial Cells Few /LPF Urine Bacteria Few (NONE TO FEW) /HPF SARS-CoV-2 RNA (REUBEN) (NEGATIVE) Pool Results Last 24 Hours: Quick cath urine culture and sensitivity from 05/31/2020 is pending Med Orders - Current: Current Medications Acetaminophen (Tylenol) 650 mg PO Q4H PRN PRN Reason: analgesia/fever Last Admin: 05/31/20 03:49 Dose: 650 mg Documented by: Albuterol (Proventil Hfa) 0 gm INH Q2H PRN PRN Reason: Shortness of Breath Albuterol/Ipratropium (Duoneb 3.0-0.5 Mg/3 Ml) 3 ml NEB QIDRT [facility] Last Admin: 05/31/20 11:13 Dose: 3 ml Documented by: Aspirin (Halfprin) 81 mg PO DAILY [facility] Last Admin: 05/31/20 08:31 Dose: 81 mg Documented by: Atorvastatin Calcium (Lipitor) 40 mg PO BEDTIME [facility] Last Admin: 05/30/20 19:22 Dose: 40 mg Documented by: Bisacodyl (Dulcolax) 10 mg RECTAL DAILY PRN PRN Reason: Constipation Calcium Carbonate/Glycine (Tums Extra Strength) 1,500 mg PO BEDTIME [facility] Carvedilol (Coreg) 12.5 mg PO QPM [facility] Last Admin: 05/30/20 18:01 Dose: 12.5 mg Documented by: Carvedilol (Coreg) 25 mg PO QAM [facility] Last Admin: 05/31/20 08:32 Dose: 25 mg Documented by: Clotrimazole (Lotrimin Af 1% Crm) 1 gm TOP BID [facility] Last Admin: 05/31/20 11:11 Dose: 1 applic Documented by: Dextrose/Water (Dextrose 50% In Water) 50 ml IV ASDIRECTED PRN PRN Reason: Hypoglycemia Dextrose/Water (Dextrose 50% In Water) 50 ml IV ASDIRECTED PRN PRN Reason: Hypoglycemia Dorzolamide HCl (Trusopt 2% Ophth Soln) 0 ml EYEBOTH BID [facility] Last Admin: 05/31/20 08:33 Dose: 1 drop Documented by: Enoxaparin Sodium (Lovenox) 30 mg SUBCUT Q24H [facility] Last Admin: 05/30/20 14:51 Dose: 30 mg Documented by: Ferrous Sulfate (Ferrous Sulfate) 325 mg PO BID [facility] Furosemide (Lasix) 40 mg IVPUSH Q8H [facility] Glucagon (Glucagen) 1 mg IM ASDIRECTED PRN PRN Reason: Hypoglycemia Ceftriaxone Sodium 1 gm/ (Sodium Chloride) 100 mls @ 200 mls/hr IV Q24H [facility] Insulin Human Lispro (Humalog) 0 unit SUBCUT QIDACANDBED [facility]; Protocol Insulin Human Regular (Humulin R) 0 unit SUBCUT BIDAC [facility]; Protocol Last Admin: 05/31/20 08:33 Dose: Not Given Documented by: Latanoprost (Xalatan 0.005% Ophth Soln) 0 ml EYEBOTH BEDTIME [facility] Last Admin: 05/30/20 19:22 Dose: 1 drop Documented by: Loperamide HCl (Imodium Ad) 2 mg PO Q6H PRN PRN Reason: Diarrhea Nitroglycerin (Nitrostat) 0.4 mg SL ASDIRECTED PRN PRN Reason: Chest Pain Ondansetron HCl (Zofran) 4 mg IVPUSH Q6H PRN PRN Reason: Nausea/Vomiting Pantoprazole Sodium (Protonix Iv) 40 mg IVPUSH Q12H [facility] Sodium Chloride (Saline Flush) 10 ml FLUSH ASDIRECTED PRN PRN Reason: Keep Vein Open Last Admin: 05/30/20 14:46 Dose: 10 ml Documented by: Discontinued Medications Bumetanide (Bumex) 2 mg PO DAILY [facility] Dextrose/Water (Dextrose 50% In Water) 50 ml IVPUSH ONETIME ONE Stop: 05/30/20 14:18 Last Admin: 05/30/20 14:47 Dose: 50 ml Documented by: Glucagon (Glucagen) 1 mg IM ASDIRECTED PRN PRN Reason: Hypoglycemia Sodium Chloride (Normal Saline) 1,000 mls @ 125 mls/hr IV ASDIRECTED [facility] Last Admin: 05/30/20 12:43 Dose: 125 mls/hr Documented by: Sodium Chloride (Normal Saline) 1,000 mls @ 500 mls/hr IV .BOLUS ONE Stop: 05/30/20 15:40 Last Admin: 05/30/20 14:00 Dose: 500 mls/hr Documented by: Sodium Chloride (Normal Saline) 1,000 mls @ 40 mls/hr IV ASDIRECTED [facility] Last Admin: 05/31/20 08:37 Dose: 40 mls/hr Documented by: Insulin Human Regular (Humulin R) 10 unit IV ONETIME ONE Stop: 05/30/20 14:26 Last Admin: 05/30/20 14:43 Dose: 10 units Documented by: Losartan Potassium (Cozaar) 50 mg PO BID [facility] Last Admin: 05/31/20 08:31 Dose: 50 mg Documented by: Ondansetron HCl (Zofran) 4 mg IVPUSH ONETIME ONE Stop: 05/30/20 12:25 Last Admin: 05/30/20 12:38 Dose: 4 mg Documented by: Prochlorperazine Edisylate (Compazine) 5 mg IVPUSH ONETIME ONE Stop: 05/30/20 13:56 Last Admin: 05/30/20 14:24 Dose: 5 mg Documented by: Sodium Polystyrene Sulfonate (Kayexalate) 45 gm PO NOW ONE Stop: 05/30/20 13:43 Last Admin: 05/30/20 14:02 Dose: Not Given Documented by: Sodium Polystyrene Sulfonate (Kayexalate) 15 gm PO ONETIME ONE Stop: 05/30/20 13:56 Last Admin: 05/30/20 14:24 Dose: 15 gm Documented by: Sodium Polystyrene Sulfonate (Kayexalate) 15 gm PO ONETIME ONE Stop: 05/30/20 19:01 Last Admin: 05/30/20 19:22 Dose: 15 gm Documented by: Sodium Polystyrene Sulfonate (Kayexalate) 15 gm PO ONETIME ONE Stop: 05/31/20 08:01 Last Admin: 05/31/20 08:30 Dose: 15 gm Documented by: Spironolactone (Aldactone) 12.5 mg PO Q12HR [facility] - Exam Quality Assessment: DVT Prophylaxis (Lovenox). No: Supplemental Oxygen, Central Line/PICC, Urine Catheter, Skin Breakdown, Restraints General: Alert, Oriented, Cooperative, No Acute Distress HEENT: Pupils Equal, Pupils Reactive, EOMI, Mucous Membr. Moist/[place], Other (Patient is wearing glasses with no vertigo or nystagmus). No: Scleral Icterus Neck: Trachea Midline, No JVD, No Thyromegaly, Carotid Bruit (Stable mild bilateral carotid bruits). No: Thyromegaly Lungs: Normal Respiratory Effort, Rales (Mild bilateral basilar). No: Rhonchi, Rub, Wheezing Cardiovascular: Regular Rate, Regular Rhythm, No Murmurs. No: Gallops, Rubs GI/Abdominal Exam: Normal Bowel Sounds, Soft, Non-Tender, No Organomegaly, No Distention, No Abnormal Bruit, No Mass, Other (Obese). No: Guarding (Female) Exam: Deferred Back Exam: Normal Inspection, Full Range of Motion. No: CVA Tenderness (L), CVA Tenderness (R), Muscle Spasm Extremities: Normal Inspection, Normal Range of Motion, Non-Tender, No Pedal Edema, Normal Capillary Refill. No: Charlee's Sign Peripheral Pulses: 2+: Radial (L), Radial (R), Dorsalis Pedis (L), Dorsalis Pedis (R) Skin: Rash (Tinea inguinalis bilaterally with secondary pruritus) Neurological: No New Focal Deficit Psy/Mental Status: Alert. No: Anxious, Depressed, Agitated, Hallucinations, Withdrawal Symptoms - Patient Data Lab Results Last 24 hrs: Laboratory Results - last 24 hr 05/30/20 05/30/20 05/30/20 Range/Units 12:35 12:35 12:35 WBC 8.0 (4.0-10.2) K/uL RBC 4.04 (3.77-5.09) M/uL Hgb 12.4 D (11.7-15.5) g/dL Hct 38.8 (34.0-46.0) % MCV 96.0 (84.0-98.0) fL MCH 30.7 (28.2-33.3) pg MCHC 32.0 (31.7-36.0) g/dL RDW 13.0 (11.2-14.1) % Plt Count 155 (150-350) K/uL Neut % (Auto) 74.9 (45.0-80.0) % Lymph % (Auto) 17.9 (10.0-50.0) % [place] % (Auto) 4.3 (2.0-14.0) % Eos % (Auto) 2.4 (0.0-5.0) % Baso % (Auto) 0.5 (0.0-2.0) % Neut # (Auto) 5.97 (1.40-7.00) K/uL Lymph # (Auto) 1.43 (0.50-3.50) K/uL [place] # (Auto) 0.34 (0.00-1.00) K/uL Eos # (Auto) 0.19 (0.00-0.50) K/uL Baso # (Auto) 0.04 (0.00-0.20) K/uL Sodium (136-145) mmol/L Potassium (3.5-5.1) mmol/L Chloride (98-107) mmol/L Carbon Dioxide (21.0-32.0) mmol/L BUN (7-18) mg/dL Creatinine (0.51-1.17) mg/dL Est Cr Clr Drug Dosing mL/min Estimated GFR (MDRD) mL/min Glucose (70-99) mg/dL POC Glucose (65-110) mg/dl Lactic Acid 1.0 (0.4-2.0) mmol/L Calcium (8.5-10.1) mg/dL Magnesium 2.0 (1.8-2.4) mg/dL Total Bilirubin (0.2-1.0) mg/dL AST (15-37) U/L ALT (12-78) U/L Alkaline Phosphatase (46-116) IU/L Total Protein (6.4-8.2) g/dL Albumin (3.4-5.0) g/dL Specimen Type Urine Color Urine Appearance Urine pH (5.0-9.0) Ur Specific [place] (1.005-1.030) Urine Protein (NEGATIVE) mg/dL Urine Glucose (UA) (NEGATIVE) mg/dL Urine Ketones (NEGATIVE) mg/dL Urine Occult Blood (NEGATIVE) Urine Nitrite (NEGATIVE) Urine Bilirubin (NEGATIVE) Urine Urobilinogen (0.2-1.0) E.U./dL Ur Leukocyte Esterase (NEGATIVE) Urine RBC /HPF Urine WBC /HPF Ur Epithelial Cells /LPF Urine Bacteria (NONE TO FEW) /HPF SARS-CoV-2 RNA (REUBEN) (NEGATIVE) 05/30/20 05/30/20 05/30/20 Range/Units 12:35 14:10 14:31 WBC (4.0-10.2) K/uL RBC (3.77-5.09) M/uL Hgb (11.7-15.5) g/dL Hct (34.0-46.0) % MCV (84.0-98.0) fL MCH (28.2-33.3) pg MCHC (31.7-36.0) g/dL RDW (11.2-14.1) % Plt Count (150-350) K/uL Neut % (Auto) (45.0-80.0) % Lymph % (Auto) (10.0-50.0) % [place] % (Auto) (2.0-14.0) % Eos % (Auto) (0.0-5.0) % Baso % (Auto) (0.0-2.0) % Neut # (Auto) (1.40-7.00) K/uL Lymph # (Auto) (0.50-3.50) K/uL [place] # (Auto) (0.00-1.00) K/uL Eos # (Auto) (0.00-0.50) K/uL Baso # (Auto) (0.00-0.20) K/uL Sodium 138 (136-145) mmol/L Potassium 7.4 H* D (3.5-5.1) mmol/L Chloride 106 (98-107) mmol/L Carbon Dioxide 19.9 L (21.0-32.0) mmol/L BUN 123 H* D (7-18) mg/dL Creatinine 3.58 H* D (0.51-1.17) mg/dL Est Cr Clr Drug Dosing 9.34 mL/min Estimated GFR (MDRD) 12 mL/min Glucose 178 H (70-99) mg/dL POC Glucose (65-110) mg/dl Lactic Acid (0.4-2.0) mmol/L Calcium 8.6 (8.5-10.1) mg/dL Magnesium (1.8-2.4) mg/dL Total Bilirubin 0.5 (0.2-1.0) mg/dL AST 21 (15-37) U/L ALT 22 (12-78) U/L Alkaline Phosphatase 103 (46-116) IU/L Total Protein 8.1 (6.4-8.2) g/dL Albumin 3.7 (3.4-5.0) g/dL Specimen Type Urinblad Urine Color Yellow Urine Appearance Cloudy Urine pH 5.0 (5.0-9.0) Ur Specific [place] 1.015 (1.005-1.030) Urine Protein 100 H (NEGATIVE) mg/dL Urine Glucose (UA) Negative (NEGATIVE) mg/dL Urine Ketones Negative (NEGATIVE) mg/dL Urine Occult Blood Small H (NEGATIVE) Urine Nitrite Negative (NEGATIVE) Urine Bilirubin Negative (NEGATIVE) Urine Urobilinogen 0.2 (0.2-1.0) E.U./dL Ur Leukocyte Esterase Large H (NEGATIVE) Urine RBC 0-5 /HPF Urine WBC 50-75 H /HPF Ur Epithelial Cells /LPF Urine Bacteria Few (NONE TO FEW) /HPF SARS-CoV-2 RNA (REUBEN) Negative (NEGATIVE) 05/30/20 05/30/20 05/30/20 Range/Units 14:45 17:13 18:45 WBC (4.0-10.2) K/uL RBC (3.77-5.09) M/uL Hgb (11.7-15.5) g/dL Hct (34.0-46.0) % MCV (84.0-98.0) fL MCH (28.2-33.3) pg MCHC (31.7-36.0) g/dL RDW (11.2-14.1) % Plt Count (150-350) K/uL Neut % (Auto) (45.0-80.0) % Lymph % (Auto) (10.0-50.0) % [place] % (Auto) (2.0-14.0) % Eos % (Auto) (0.0-5.0) % Baso % (Auto) (0.0-2.0) % Neut # (Auto) (1.40-7.00) K/uL Lymph # (Auto) (0.50-3.50) K/uL [place] # (Auto) (0.00-1.00) K/uL Eos # (Auto) (0.00-0.50) K/uL Baso # (Auto) (0.00-0.20) K/uL Sodium (136-145) mmol/L Potassium 6.8 H* (3.5-5.1) mmol/L Chloride (98-107) mmol/L Carbon Dioxide (21.0-32.0) mmol/L BUN (7-18) mg/dL Creatinine (0.51-1.17) mg/dL Est Cr Clr Drug Dosing mL/min Estimated GFR (MDRD) mL/min Glucose (70-99) mg/dL POC Glucose 141 H 97 (65-110) mg/dl Lactic Acid (0.4-2.0) mmol/L Calcium (8.5-10.1) mg/dL Magnesium (1.8-2.4) mg/dL Total Bilirubin (0.2-1.0) mg/dL AST (15-37) U/L ALT (12-78) U/L Alkaline Phosphatase (46-116) IU/L Total Protein (6.4-8.2) g/dL Albumin (3.4-5.0) g/dL Specimen Type Urine Color Urine Appearance Urine pH (5.0-9.0) Ur Specific [place] (1.005-1.030) Urine Protein (NEGATIVE) mg/dL Urine Glucose (UA) (NEGATIVE) mg/dL Urine Ketones (NEGATIVE) mg/dL Urine Occult Blood (NEGATIVE) Urine Nitrite (NEGATIVE) Urine Bilirubin (NEGATIVE) Urine Urobilinogen (0.2-1.0) E.U./dL Ur Leukocyte Esterase (NEGATIVE) Urine RBC /HPF Urine WBC /HPF Ur Epithelial Cells /LPF Urine Bacteria (NONE TO FEW) /HPF SARS-CoV-2 RNA (REUBEN) (NEGATIVE) 05/30/20 05/31/20 05/31/20 Range/Units 19:21 07:04 07:04 WBC 8.2 (4.0-10.2) K/uL RBC 3.28 L (3.77-5.09) M/uL Hgb 9.8 L D (11.7-15.5) g/dL Hct 32.1 L (34.0-46.0) % MCV 97.9 (84.0-98.0) fL MCH 29.9 (28.2-33.3) pg MCHC 30.5 L (31.7-36.0) g/dL RDW 13.2 (11.2-14.1) % Plt Count 140 L (150-350) K/uL Neut % (Auto) 52.2 (45.0-80.0) % Lymph % (Auto) 32.7 (10.0-50.0) % [place] % (Auto) 10.0 (2.0-14.0) % Eos % (Auto) 4.7 (0.0-5.0) % Baso % (Auto) 0.4 (0.0-2.0) % Neut # (Auto) 4.27 (1.40-7.00) K/uL Lymph # (Auto) 2.67 (0.50-3.50) K/uL [place] # (Auto) 0.82 (0.00-1.00) K/uL Eos # (Auto) 0.38 (0.00-0.50) K/uL Baso # (Auto) 0.03 (0.00-0.20) K/uL Sodium 144 (136-145) mmol/L Potassium 5.5 H (3.5-5.1) mmol/L Chloride 113 H (98-107) mmol/L Carbon Dioxide 19.3 L (21.0-32.0) mmol/L BUN 104 H* (7-18) mg/dL Creatinine 3.30 H* (0.51-1.17) mg/dL Est Cr Clr Drug Dosing 10.14 mL/min Estimated GFR (MDRD) 13 mL/min Glucose 91 (70-99) mg/dL POC Glucose 86 (65-110) mg/dl Lactic Acid (0.4-2.0) mmol/L Calcium 8.2 L (8.5-10.1) mg/dL Magnesium (1.8-2.4) mg/dL Total Bilirubin 0.6 (0.2-1.0) mg/dL AST 11 L (15-37) U/L ALT 15 (12-78) U/L Alkaline Phosphatase 65 (46-116) IU/L Total Protein 6.1 L (6.4-8.2) g/dL Albumin 2.8 L (3.4-5.0) g/dL Specimen Type Urine Color Urine Appearance Urine pH (5.0-9.0) Ur Specific [place] (1.005-1.030) Urine Protein (NEGATIVE) mg/dL Urine Glucose (UA) (NEGATIVE) mg/dL Urine Ketones (NEGATIVE) mg/dL Urine Occult Blood (NEGATIVE) Urine Nitrite (NEGATIVE) Urine Bilirubin (NEGATIVE) Urine Urobilinogen (0.2-1.0) E.U./dL Ur Leukocyte Esterase (NEGATIVE) Urine RBC /HPF Urine WBC /HPF Ur Epithelial Cells /LPF Urine Bacteria (NONE TO FEW) /HPF SARS-CoV-2 RNA (REUBEN) (NEGATIVE) 05/31/20 05/31/20 05/31/20 Range/Units 07:13 10:02 11:12 WBC (4.0-10.2) K/uL RBC (3.77-5.09) M/uL Hgb (11.7-15.5) g/dL Hct (34.0-46.0) % MCV (84.0-98.0) fL MCH (28.2-33.3) pg MCHC (31.7-36.0) g/dL RDW (11.2-14.1) % Plt Count (150-350) K/uL Neut % (Auto) (45.0-80.0) % Lymph % (Auto) (10.0-50.0) % [place] % (Auto) (2.0-14.0) % Eos % (Auto) (0.0-5.0) % Baso % (Auto) (0.0-2.0) % Neut # (Auto) (1.40-7.00) K/uL Lymph # (Auto) (0.50-3.50) K/uL [place] # (Auto) (0.00-1.00) K/uL Eos # (Auto) (0.00-0.50) K/uL Baso # (Auto) (0.00-0.20) K/uL Sodium (136-145) mmol/L Potassium (3.5-5.1) mmol/L Chloride (98-107) mmol/L Carbon Dioxide (21.0-32.0) mmol/L BUN (7-18) mg/dL Creatinine (0.51-1.17) mg/dL Est Cr Clr Drug Dosing mL/min Estimated GFR (MDRD) mL/min Glucose (70-99) mg/dL POC Glucose 84 118 H (65-110) mg/dl Lactic Acid (0.4-2.0) mmol/L Calcium (8.5-10.1) mg/dL Magnesium (1.8-2.4) mg/dL Total Bilirubin (0.2-1.0) mg/dL AST (15-37) U/L ALT (12-78) U/L Alkaline Phosphatase (46-116) IU/L Total Protein (6.4-8.2) g/dL Albumin (3.4-5.0) g/dL Specimen Type Urin[place] Urine Color Yellow Urine Appearance Cloudy Urine pH 5.0 (5.0-9.0) Ur Specific [place] 1.015 (1.005-1.030) Urine Protein 100 H (NEGATIVE) mg/dL Urine Glucose (UA) Negative (NEGATIVE) mg/dL Urine Ketones Negative (NEGATIVE) mg/dL Urine Occult Blood Moderate H (NEGATIVE) Urine Nitrite Negative (NEGATIVE) Urine Bilirubin Negative (NEGATIVE) Urine Urobilinogen 0.2 (0.2-1.0) E.U./dL Ur Leukocyte Esterase Large H (NEGATIVE) Urine RBC 5-10 H /HPF Urine WBC Packed /HPF Ur Epithelial Cells Few /LPF Urine Bacteria Few (NONE TO FEW) /HPF SARS-CoV-2 RNA (REUBEN) (NEGATIVE) Result Diagrams: 05/31/20 07:04 05/31/20 07:04 Sepsis Event Note - Evaluation Sepsis Screening Result: No Definite Risk - Focused Exam Vital Signs: Vital Signs Temp Pulse Pulse Resp BP BP Pulse Ox 05/31/20 08:32 77 116/72 05/31/20 08:31 116/72 05/31/20 08:00 36.6 C 77 14 116/72 96 05/31/20 00:00 36.6 C 80 20 134/72 98 - Problem List & Annotations (1) Diabetic nephropathy Status: Chronic Priority: High Current Visit: Yes Qualifiers: Diabetes mellitus type: type 2 Qualified Code(s): E11.21 - Type 2 diabetes mellitus with diabetic nephropathy Annotation/Comment:: Acute renal failures/exacerbation of her chronic diabetic nephropathy with significant hyperkalemia likely secondary to her medical therapy as below, including spironolactone and losartan. Lactulose was initiated by on-call physician. Initially patient stated that she did not wish to be transferred to [place] and does not wish to consider dialysis, which has been discussed in the past by her previous physicians. The patient is reconsidering this at this time. Continue aggressive care as below with consideration of patient transfer for nephrology consultation. The patient will likely need long-term half-way placement, if dialysis therapy is initiated. (2) Diarrhea SNOMED Code(s): 60833984 Code(s): R19.7 - DIARRHEA, UNSPECIFIED Status: Acute Priority: High Current Visit: Yes Onset Date: ~05/30/20 Qualifiers: Diarrhea type: unspecified type Qualified Code(s): R19.7 - Diarrhea, unspecified Annotation/Comment:: Severe diarrhea possibly secondary to her renal failure and/or other etiology. Stool specimen was collected for C. difficile toxin and also culture and sensitivity. Imodium A-D was ordered. Continue to observe closely with Kayexalate ordered for her significant hyper kalemia. Continue to observe closely for now. 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 Patient was changed to a 4 times daily Humalog subcu sliding scale on 05/31. Note diabetic nephropathy, diabetic neuropathy, etc.. Glycosylated hemoglobin to be conducted in the a.m. (4) Hyperphosphatemia SNOMED Code(s): 56068510 Code(s): E83.39 - OTHER DISORDERS OF PHOSPHORUS METABOLISM Status: Acute Priority: High Current Visit: No Onset Date: 07/14/19 Annotation/Comment:: Chronic history of intermittent hyperphosphatemia secondary to recurrent exacerbation of her diabetic nephropathy. Consider PhosLo depending on her clinical course with phosphate level ordered for 06/01. (5) UTI (urinary tract infection) SNOMED Code(s): 76236027 Code(s): N39.0 - URINARY TRACT INFECTION, SITE NOT SPECIFIED Status: Acute Priority: High Current Visit: Yes Onset Date: ~12/03/19 Qualifiers: Urinary tract infection type: acute cystitis Hematuria presence: without hematuria Qualified Code(s): N30.00 - Acute cystitis without hematuria Annotation/Comment:: Initial clean-catch UA was positive on admission, however note concomitant diarrhea with urine specimen not set up for culture and sensitivity. Quick cath UA was collected on 05/31 with persistent positive UTI and IV Rocephin initiated. Urine culture is pending with this specimen. Patient has a long history of recurrent UTIs. (6) Anemia SNOMED Code(s): 416762498 Code(s): D64.9 - ANEMIA, UNSPECIFIED Status: Chronic Priority: Medium Current Visit: Yes Onset Date: 02/27/18 Qualifiers: Anemia type: iron deficiency Annotation/Comment:: Note significant compression of her anemia since admission likely secondary to rehydration effect with hemoglobin of 9.8 on 05/31 in comparison to 12.4 on admission. Long history of iron deficiency anemia with iron supplement reinitiated on 05/31. Continue to observe closely during this hospitalization. No evidence of acute GI bleed, however IV Protonix was initiated on 05/31. Further work-up depending on her clinical course. Note chronic renal insufficiency. (7) CHF (congestive heart failure) SNOMED Code(s): 10923836 Code(s): I50.9 - HEART FAILURE, UNSPECIFIED Status: Chronic Priority: High Current Visit: No Onset Date: 02/21/17 Qualifiers: Heart failure chronicity: acute on chronic Annotation/Comment:: No chest pain or anginal type symptoms either prior to admission and/or during this hospitalization. EKG showed complete bifascicular bundle branch block on admission with history of PACs, PVCs, and previous SVT. Note known history of cardiomegaly with echocardiogram last performed on 08/26/18 with an ejection fraction of 45% at that time and history of pulmonary hypertension. Consider repeat echocardiogram once her medical therapy has been determined on an outpatient basis. No previous problems with intolerance to MONICA inhibitor's and spironolactone with secondary hyperkalemia. Medication compliance has also been an issue in the past. Secondary to her hyperkalemia her previous Bumex therapy will be changed to IV Lasix with patient initially hydrated secondary to her renal failure and significant diarrhea on admission. She is eating well at this time with IV fluids to be discontinued. Her previous losartan and spironolactone therapy were discontinued on 05/31 secondary to her significant hyperkalemia on admission. (8) COPD (chronic obstructive pulmonary disease) SNOMED Code(s): 66475148 Code(s): J44.9 - CHRONIC OBSTRUCTIVE PULMONARY DISEASE, UNSPECIFIED Status: Chronic Priority: Medium Current Visit: Yes Qualifiers: COPD type: emphysema Emphysema type: panlobular Qualified Code(s): J43.1 - Panlobular emphysema Annotation/Comment:: No recent fever or bronchitic type symptoms. Continue nebulizer and inhaler therapy as before. (9) Hypertension SNOMED Code(s): 91162706 Code(s): I10 - ESSENTIAL (PRIMARY) HYPERTENSION Status: Chronic Priority: Medium Current Visit: Yes Qualifiers: Hypertension type: essential hypertension Annotation/Comment:: Stable during this hospitalization. (10) Hypocalcemia SNOMED Code(s): 0250564 Code(s): E83.51 - HYPOCALCEMIA Status: Chronic Priority: Medium Current Visit: Yes Onset Date: 03/01/18 Annotation/Comment:: Resumed OTC Tums as calcium supplementation and GI prophylaxis on 06/01/2019. Continue to observe closely. (11) Osteoarthritis SNOMED Code(s): 923649544 Code(s): M19.90 - UNSPECIFIED OSTEOARTHRITIS, UNSPECIFIED SITE Status: Chronic Priority: High Current Visit: Yes Qualifiers: Osteoarthritis location: multiple joints Osteoarthritis type: primary Qualified Code(s): M89.49 - Other hypertrophic osteoarthropathy, multiple sites Annotation/Comment:: Stable by history. (12) Peptic reflux disease SNOMED Code(s): 947441379 Code(s): K21.9 - GASTRO-ESOPHAGEAL REFLUX DISEASE WITHOUT ESOPHAGITIS Status: Chronic Priority: Medium Current Visit: Yes Annotation/Comment:: Stable by history. IV Protonix initiated on 05/31 as above (13) Need for comfort care SNOMED Code(s): 062643976, 922525961 Code(s): DFI5388 - Status: Chronic Priority: Medium Current Visit: Yes Annotation/Comment:: Patient requesting comfort care on admission as above. Long-term prognosis poor secondary to patient's recurrent renal failure/diabetic nephropathy and multiple healthcare issues as above. She is now considering possible hospital transfer as above. (14) Tobacco abuse counseling SNOMED Code(s): 181098131, 224498520, 034709371 Code(s): Z71.6 - TOBACCO ABUSE COUNSELING Status: Chronic Priority: Medium Current Visit: Yes Annotation/Comment:: Tobacco smoke exposure was o nce again extensively discussed with the patient with tobacco cessation information to be provided at discharge. (15) Tinea cruris SNOMED Code(s): 940881936 Code(s): B35.6 - TINEA CRURIS Status: Acute Priority: Medium Current Visit: Yes Onset Date: ~05/31/20 Annotation/Comment:: Lotrimin AF started on 05/31. - Problem List Review Problem List Initiated/Reviewed/Updated: Yes - My Orders Last 24 Hours: My Active Orders 05/31/20 10:00 Clotrimazole [Lotrimin AF 1% Crm] 1 gm TOP BID 05/31/20 10:02 CULTURE URINE [RM] Routine 05/31/20 11:12 bisacodyL [Dulcolax] 10 mg RECTAL DAILY PRN 05/31/20 11:14 Dextrose 50% in Water 50 ml IV ASDIRECTED PRN Glucagon,Human Recombinant [GlucaGen] 1 mg IM ASDIRECTED PRN 05/31/20 11:15 Ferrous Sulfate 325 mg PO BID Furosemide [Lasix] 40 mg IVPUSH Q8H Pantoprazole [ProTONIX IV] 40 mg IVPUSH Q12H cefTRIAXone [Rocephin] 1 gm Sodium Chloride 0.9% [Normal Saline] 100 ml IV Q24H 05/31/20 11:30 Blood Glucose Check, Bedside [RC] QIDACANDBED Insulin Lispro [HumaLOG] See Protocol SUBCUT QIDACANDBED 05/31/20 20:00 Calcium Carbonate [Tums Extra Strength] 1,500 mg PO BEDTIME 06/01/20 05:11 BASIC METABOLIC PANEL,BMP [CHEM] Routine CBC WITH AUTO DIFF [HEME] Routine MAGNESIUM [CHEM] Routine PHOSPHORUS [CHEM] Routine URIC ACID [CHEM] Routine - Assessment Assessment:: As above - Plan Plan:: As above. Extensive precautions were given to the patient, who is in agreement with the treatment plan. The patient will require about 2-3 days of inpatient/acute care secondary to multiple health problems as above.
[2020-05-31] MEDS: Pantoprazole 40 MG Vial IVPUSH SCH ×2 (12:06→23:30)
[2020-05-31] MEDS: Ferrous Sulfate 325 MG Tab PO SCH ×2 (12:06→17:20)
[2020-05-31] MEDS: cefTRIAXone 1 GM in Sodium Chloride 0.9% 100 ML IV SCH (12:06)
[2020-05-31] MEDS: Furosemide 40 MG/4 ML VIAL IVPUSH SCH ×2 (12:07→19:27)
[2020-05-31] MEDS: Insulin Lispro 100 Units/ML 3 ML Vial SUBCUT SCH ×3 (12:07→20:07)
[2020-05-31] MEDS ORDERED: Loperamide 2 MG Tab PO PRN (15:00)
[2020-05-31] MEDS: Enoxaparin 30 MG/0.3 ML Syringe SUBCUT SCH (15:07)
[2020-05-31] MEDS: Carvedilol 12.5 MG Tab PO SCH (17:20)
[2020-05-31] MEDS: atorvaSTATin 40 MG Tab PO SCH (19:27)
[2020-05-31] MEDS: Calcium Carbonate 750 MG Tab.Chew PO SCH (19:27)
[2020-05-31] MEDS: Latanoprost 0.005% Ophth Soln 2.5 ML Bottle EYEBOTH SCH (19:27)
[2020-06-01] MEDS ORDERED: Bumetanide 1 MG Tab PO SCH (08:00)
[2020-06-01] MEDS: Carvedilol 25 MG Tab PO SCH (08:05)
[2020-06-01] MEDS: Insulin Lispro 100 Units/ML 3 ML Vial SUBCUT SCH ×4 (08:05→21:20)
[2020-06-01] MEDS: Aspirin 81 MG Tab.EC PO SCH (08:05)
[2020-06-01] MEDS: Dorzolamide 2% Ophth Soln 10 ML Bottle EYEBOTH SCH ×2 (08:06→17:04)
[2020-06-01] MEDS: Albuterol/Ipratropium 3.0-0.5 MG/3 ML Neb Soln NEB SCH ×4 (08:06→21:19)
[2020-06-01] MEDS: Clotrimazole 1% Crm 30 GM Tube TOP SCH ×2 (08:06→17:01)
[2020-06-01] MEDS: Ferrous Sulfate 325 MG Tab PO SCH ×2 (08:06→17:03)
[2020-06-01] MEDS: Furosemide 40 MG/4 ML VIAL IVPUSH SCH ×3 (08:35→21:19)
[2020-06-01] MEDS: Acetaminophen 325 MG Tab PO PRN (08:56)
[2020-06-01] MEDS: Sodium Chloride 0.9% 10 ML Syringe FLUSH PRN ×3 (11:59→23:53)
[2020-06-01] MEDS: Pantoprazole 40 MG Vial IVPUSH SCH ×2 (11:59→23:53)
[2020-06-01] MEDS: cefTRIAXone 1 GM in Sodium Chloride 0.9% 100 ML IV SCH (11:59)
--- NOTE | 2020-06-01 12:43 | PCM.PN ---
- General Info Date of Service: 06/01/20 Admission Dx/Problem (Free Text): 1. Acute renal failure with history of chronic renal insufficiency 2. Hyperkalemia 3. CHF 4. Diabetes mellitus 5. Diarrhea with secondary dehydration Functional Status: Reports: Pain Controlled, Tolerating Diet, Ambulating, Urinating, Incentive Spirometry. Denies: New Symptoms Pain Score: 0 - Review of Systems General: Reports: Fever (37.3 this morning), Weakness (Stable chronic). Denies: Fatigue, Malaise, Chills, Night Sweats, Other HEENT: Reports: No Symptoms. Denies: Contact Lenses, Dysphasia, Ear Pain, Eye Pain, Headaches, Post Nasal Drip, Sinus Congestion, Sore Throat, Rhinitis, Visual Changes Pulmonary: Reports: No Symptoms. Denies: Shortness of Breath, Pleuritic Chest Pain, Cough, Sputum, Hemoptysis, Wheezing Cardiovascular: Reports: No Symptoms. Denies: Chest Pain, Palpitations, Dyspnea on Exertion, Orthopnea, PND, Edema, Lightheadedness Gastrointestinal: Reports: Abdominal Pain. Denies: Constipation, Decreased Appetite, Diarrhea (Resolved), Difficulty Swallowing, Flatus, Hematochezia, Melena, Nausea, Vomiting Genitourinary: Reports: No Symptoms. Denies: Dysuria (Improved), Burning (Improved), Urgency, Incontinence, Hematuria, Retention, Flank Pain Musculoskeletal: Reports: No Symptoms. Denies: Neck Pain, Shoulder Pain, Arm Pain, Back Pain Skin: Reports: Rash (Stable inguinal). Denies: Diaphoresis, Bruising Neurological: Reports: Weakness (As above). Denies: Confusion Psychiatric: Reports: No Symptoms. Denies: Confusion, Depression, Anxiety, Agitation, Cravings, Hallucinations - Patient Data Vitals - Most Recent: Last Vital Signs Temp 37.3 C 06/01/20 08:00 Pulse 95 06/01/20 08:05 Resp 19 06/01/20 08:00 BP 137/79 06/01/20 08:05 Pulse Ox 98 06/01/20 08:00 Vital Signs - 24 hr 05/31/20 05/31/20 05/31/20 14:00 17:18 17:20 Temperature [ 36.6 C Oral] Temperature [ 36.5 C Temporal] Pulse, 73 Peripheral Pulse, 74 73 Peripheral [ Left Pulse Oximetry] Respiratory 16 20 Rate Blood Pressure 129/94 H Blood Pressure 124/75 129/94 H [Left Upper Arm ] O2 Sat by Pulse 95 99 Oximetry 05/31/20 06/01/20 06/01/20 20:00 08:00 08:05 Temperature [ 37.1 C 37.3 C Oral] Temperature [ Temporal] Pulse, 95 Peripheral Pulse, 72 95 Peripheral [ Left Pulse Oximetry] Respiratory 18 19 Rate Blood Pressure 137/79 Blood Pressure 105/67 137/79 [Left Upper Arm ] O2 Sat by Pulse 94 L 98 Oximetry Weight - Most Recent: 76.884 kg I&O - Last 24 Hours: Intake & Output 05/31/20 06/01/20 06/01/20 22:59 06:59 14:59 Intake Total 818 240 Output Total 500 Balance 818 -260 Imaging Impressions - 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 No ectopy or arrhythmia. Lab Results Last 24 Hours: Laboratory Results - last 24 hr 05/31/20 05/31/20 06/01/20 Range/Units 16:54 19:29 07:19 WBC 7.5 (4.0-10.2) K/uL RBC 3.42 L (3.77-5.09) M/uL Hgb 10.2 L (11.7-15.5) g/dL Hct 33.4 L (34.0-46.0) % MCV 97.7 (84.0-98.0) fL MCH 29.8 (28.2-33.3) pg MCHC 30.5 L (31.7-36.0) g/dL RDW 13.3 (11.2-14.1) % Plt Count 140 L (150-350) K/uL Neut % (Auto) 52.3 (45.0-80.0) % Lymph % (Auto) 33.2 (10.0-50.0) % Parker % (Auto) 8.2 (2.0-14.0) % Eos % (Auto) 5.8 H (0.0-5.0) % Baso % (Auto) 0.5 (0.0-2.0) % Neut # (Auto) 3.93 (1.40-7.00) K/uL Lymph # (Auto) 2.50 (0.50-3.50) K/uL Parker # (Auto) 0.62 (0.00-1.00) K/uL Eos # (Auto) 0.44 (0.00-0.50) K/uL Baso # (Auto) 0.04 (0.00-0.20) K/uL Sodium (136-145) mmol/L Potassium (3.5-5.1) mmol/L Chloride (98-107) mmol/L Carbon Dioxide (21.0-32.0) mmol/L BUN (7-18) mg/dL Creatinine (0.51-1.17) mg/dL Est Cr Clr Drug Dosing mL/min Estimated GFR (MDRD) mL/min Glucose (70-99) mg/dL POC Glucose 110 115 H (65-110) mg/dl Uric Acid (2.6-7.2) mg/dL Calcium (8.5-10.1) mg/dL Phosphorus (2.6-4.7) mg/dL Magnesium (1.8-2.4) mg/dL 06/01/20 06/01/20 06/01/20 Range/Units 07:19 07:26 11:53 WBC (4.0-10.2) K/uL RBC (3.77-5.09) M/uL Hgb (11.7-15.5) g/dL Hct (34.0-46.0) % MCV (84.0-98.0) fL MCH (28.2-33.3) pg MCHC (31.7-36.0) g/dL RDW (11.2-14.1) % Plt Count (150-350) K/uL Neut % (Auto) (45.0-80.0) % Lymph % (Auto) (10.0-50.0) % Parker % (Auto) (2.0-14.0) % Eos % (Auto) (0.0-5.0) % Baso % (Auto) (0.0-2.0) % Neut # (Auto) (1.40-7.00) K/uL Lymph # (Auto) (0.50-3.50) K/uL Parker # (Auto) (0.00-1.00) K/uL Eos # (Auto) (0.00-0.50) K/uL Baso # (Auto) (0.00-0.20) K/uL Sodium 147 H (136-145) mmol/L Potassium 5.0 (3.5-5.1) mmol/L Chloride 114 H (98-107) mmol/L Carbon Dioxide 20.7 L (21.0-32.0) mmol/L BUN 79 H D (7-18) mg/dL Creatinine 2.70 H (0.51-1.17) mg/dL Est Cr Clr Drug Dosing 12.39 mL/min Estimated GFR (MDRD) 17 mL/min Glucose 107 H (70-99) mg/dL POC Glucose 104 118 H (65-110) mg/dl Uric Acid 7.2 (2.6-7.2) mg/dL Calcium 8.0 L (8.5-10.1) mg/dL Phosphorus 4.5 (2.6-4.7) mg/dL Magnesium 1.6 L (1.8-2.4) mg/dL Pool Results Last 24 Hours: Urine specimen for culture and sensitivity is pending Preliminary report of stool is positive for C. difficile Med Orders - Current: Current Medications Acetaminophen (Tylenol) 650 mg PO Q4H PRN PRN Reason: analgesia/fever Last Admin: 06/01/20 08:56 Dose: 650 mg Documented by: Albuterol (Proventil Hfa) 0 gm INH Q2H PRN PRN Reason: Shortness of Breath Albuterol/Ipratropium (Duoneb 3.0-0.5 Mg/3 Ml) 3 ml NEB QIDRT [facility] Last Admin: 06/01/20 11:58 Dose: 3 ml Documented by: Aspirin (Halfprin) 81 mg PO DAILY [facility] Last Admin: 06/01/20 08:05 Dose: 81 mg Documented by: Atorvastatin Calcium (Lipitor) 40 mg PO BEDTIME [facility] Last Admin: 05/31/20 19:27 Dose: 40 mg Documented by: Bisacodyl (Dulcolax) 10 mg RECTAL DAILY PRN PRN Reason: Constipation Calcium Carbonate/Glycine (Tums Extra Strength) 1,500 mg PO BEDTIME [facility] Last Admin: 05/31/20 19:27 Dose: 1,500 mg Documented by: Carvedilol (Coreg) 12.5 mg PO QPM [facility] Last Admin: 05/31/20 17:20 Dose: 12.5 mg Documented by: Carvedilol (Coreg) 25 mg PO QAM [facility] Last Admin: 06/01/20 08:05 Dose: 25 mg Documented by: Clotrimazole (Lotrimin Af 1% Crm) 1 gm TOP BID [facility] Last Admin: 06/01/20 08:06 Dose: 1 applic Documented by: Dextrose/Water (Dextrose 50% In Water) 50 ml IV ASDIRECTED PRN PRN Reason: Hypoglycemia Dextrose/Water (Dextrose 50% In Water) 50 ml IV ASDIRECTED PRN PRN Reason: Hypoglycemia Dorzolamide HCl (Trusopt 2% Ophth Soln) 0 ml EYEBOTH BID [facility] Last Admin: 06/01/20 08:06 Dose: 1 drop Documented by: Enoxaparin Sodium (Lovenox) 30 mg SUBCUT Q24H [facility] Last Admin: 05/31/20 15:07 Dose: 30 mg Documented by: Ferrous Sulfate (Ferrous Sulfate) 325 mg PO BID [facility] Last Admin: 06/01/20 08:06 Dose: 325 mg Documented by: Furosemide (Lasix) 40 mg IVPUSH Q8H [facility] Last Admin: 06/01/20 11:59 Dose: 40 mg Documented by: Glucagon (Glucagen) 1 mg IM ASDIRECTED PRN PRN Reason: Hypoglycemia Ceftriaxone Sodium 1 gm/ (Sodium Chloride) 100 mls @ 200 mls/hr IV Q24H [facility] Last Admin: 06/01/20 11:59 Dose: 200 mls/hr Documented by: Insulin Human Lispro (Humalog) 0 unit SUBCUT QIDACANDBED [facility]; Protocol Last Admin: 06/01/20 11:58 Dose: Not Given Documented by: Latanoprost (Xalatan 0.005% Ophth Soln) 0 ml EYEBOTH BEDTIME [facility] Last Admin: 05/31/20 19:27 Dose: 1 drop Documented by: Loperamide HCl (Imodium Ad) 2 mg PO Q6H PRN PRN Reason: Diarrhea Nitroglycerin (Nitrostat) 0.4 mg SL ASDIRECTED PRN PRN Reason: Chest Pain Ondansetron HCl (Zofran) 4 mg IVPUSH Q6H PRN PRN Reason: Nausea/Vomiting Pantoprazole Sodium (Protonix Iv) 40 mg IVPUSH Q12H [facility] Last Admin: 06/01/20 11:59 Dose: 40 mg Documented by: Sodium Chloride (Saline Flush) 10 ml FLUSH ASDIRECTED PRN PRN Reason: Keep Vein Open Last Admin: 06/01/20 12:12 Dose: 10 ml Documented by: Discontinued Medications Bumetanide (Bumex) 2 mg PO DAILY [facility] Dextrose/Water (Dextrose 50% In Water) 50 ml IVPUSH ONETIME ONE Stop: 05/30/20 14:18 Last Admin: 05/30/20 14:47 Dose: 50 ml Documented by: Glucagon (Glucagen) 1 mg IM ASDIRECTED PRN PRN Reason: Hypoglycemia Sodium Chloride (Normal Saline) 1,000 mls @ 125 mls/hr IV ASDIRECTED [facility] Last Admin: 05/30/20 12:43 Dose: 125 mls/hr Documented by: Sodium Chloride (Normal Saline) 1,000 mls @ 500 mls/hr IV .BOLUS ONE Stop: 05/30/20 15:40 Last Admin: 05/30/20 14:00 Dose: 500 mls/hr Documented by: Sodium Chloride (Normal Saline) 1,000 mls @ 40 mls/hr IV ASDIRECTED [facility] Last Admin: 05/31/20 08:37 Dose: 40 mls/hr Documented by: Insulin Human Regular (Humulin R) 0 unit SUBCUT BIDAC [facility]; Protocol Last Admin: 05/31/20 08:33 Dose: Not Given Documented by: Insulin Human Regular (Humulin R) 10 unit IV ONETIME ONE Stop: 05/30/20 14:26 Last Admin: 05/30/20 14:43 Dose: 10 units Documented by: Losartan Potassium (Cozaar) 50 mg PO BID [facility] Last Admin: 05/31/20 08:31 Dose: 50 mg Documented by: Ondansetron HCl (Zofran) 4 mg IVPUSH ONETIME ONE Stop: 05/30/20 12:25 Last Admin: 05/30/20 12:38 Dose: 4 mg Documented by: Prochlorperazine Edisylate (Compazine) 5 mg IVPUSH ONETIME ONE Stop: 05/30/20 13:56 Last Admin: 05/30/20 14:24 Dose: 5 mg Documented by: Sodium Polystyrene Sulfonate (Kayexalate) 45 gm PO NOW ONE Stop: 05/30/20 13:43 Last Admin: 05/30/20 14:02 Dose: Not Given Documented by: Sodium Polystyrene Sulfonate (Kayexalate) 15 gm PO ONETIME ONE Stop: 05/30/20 13:56 Last Admin: 05/30/20 14:24 Dose: 15 gm Documented by: Sodium Polystyrene Sulfonate (Kayexalate) 15 gm PO ONETIME ONE Stop: 05/30/20 19:01 Last Admin: 05/30/20 19:22 Dose: 15 gm Documented by: Sodium Polystyrene Sulfonate (Kayexalate) 15 gm PO ONETIME ONE Stop: 05/31/20 08:01 Last Admin: 05/31/20 08:30 Dose: 15 gm Documented by: Spironolactone (Aldactone) 12.5 mg PO Q12HR [facility] - Exam Quality Assessment: DVT Prophylaxis, Skin Breakdown (Mild inguinal rash). No: Supplemental Oxygen, Central Line/PICC, Urine Catheter, Restraints General: Alert, Oriented, Cooperative, No Acute Distress HEENT: Pupils Equal, Pupils Reactive, EOMI, Mucous Membr. Moist/[place]. No: Scleral Icterus Neck: Supple, Trachea Midline, No JVD, No Thyromegaly, Carotid Bruit (Mild bilateral carotid bruits). No: Lymphadenopathy, Thyromegaly Lungs: Clear to Auscultation, Normal Respiratory Effort. No: Rub Cardiovascular: Regular Rate, Regular Rhythm, No Murmurs. No: Gallops, Rubs GI/Abdominal Exam: Normal Bowel Sounds, Soft, Non-Tender, No Organomegaly, No Distention, No Abnormal Bruit, No Mass, Other (Obese) (Female) Exam: Deferred Back Exam: Full Range of Motion, Other (Mild kyphosis). No: CVA Tenderness (L), CVA Tenderness (R), Decreased Range of Motion, Muscle Spasm, Paraspinal Tenderness, Vertebral Tenderness Extremities: Normal Inspection, Normal Range of Motion, Non-Tender, No Pedal Edema, Normal Capillary Refill. No: Charlee's Sign Peripheral Pulses: 2+: Radial (L), Radial (R), Dorsalis Pedis (L), Dorsalis Pedis (R) Skin: Rash (Slowly improving inguinal tinea) Wound/Incisions: Healing Well Neurological: No New Focal Deficit Psy/Mental Status: Alert, Normal Affect, Normal Mood. No: Agitated, Hallucinations, Withdrawal Symptoms - Patient Data Lab Results Last 24 hrs: Laboratory Results - last 24 hr 05/31/20 05/31/20 06/01/20 Range/Units 16:54 19:29 07:19 WBC 7.5 (4.0-10.2) K/uL RBC 3.42 L (3.77-5.09) M/uL Hgb 10.2 L (11.7-15.5) g/dL Hct 33.4 L (34.0-46.0) % MCV 97.7 (84.0-98.0) fL MCH 29.8 (28.2-33.3) pg MCHC 30.5 L (31.7-36.0) g/dL RDW 13.3 (11.2-14.1) % Plt Count 140 L (150-350) K/uL Neut % (Auto) 52.3 (45.0-80.0) % Lymph % (Auto) 33.2 (10.0-50.0) % Parker % (Auto) 8.2 (2.0-14.0) % Eos % (Auto) 5.8 H (0.0-5.0) % Baso % (Auto) 0.5 (0.0-2.0) % Neut # (Auto) 3.93 (1.40-7.00) K/uL Lymph # (Auto) 2.50 (0.50-3.50) K/uL Parker # (Auto) 0.62 (0.00-1.00) K/uL Eos # (Auto) 0.44 (0.00-0.50) K/uL Baso # (Auto) 0.04 (0.00-0.20) K/uL Sodium (136-145) mmol/L Potassium (3.5-5.1) mmol/L Chloride (98-107) mmol/L Carbon Dioxide (21.0-32.0) mmol/L BUN (7-18) mg/dL Creatinine (0.51-1.17) mg/dL Est Cr Clr Drug Dosing mL/min Estimated GFR (MDRD) mL/min Glucose (70-99) mg/dL POC Glucose 110 115 H (65-110) mg/dl Uric Acid (2.6-7.2) mg/dL Calcium (8.5-10.1) mg/dL Phosphorus (2.6-4.7) mg/dL Magnesium (1.8-2.4) mg/dL 06/01/20 06/01/20 06/01/20 Range/Units 07:19 07:26 11:53 WBC (4.0-10.2) K/uL RBC (3.77-5.09) M/uL Hgb (11.7-15.5) g/dL Hct (34.0-46.0) % MCV (84.0-98.0) fL MCH (28.2-33.3) pg MCHC (31.7-36.0) g/dL RDW (11.2-14.1) % Plt Count (150-350) K/uL Neut % (Auto) (45.0-80.0) % Lymph % (Auto) (10.0-50.0) % Parker % (Auto) (2.0-14.0) % Eos % (Auto) (0.0-5.0) % Baso % (Auto) (0.0-2.0) % Neut # (Auto) (1.40-7.00) K/uL Lymph # (Auto) (0.50-3.50) K/uL Parker # (Auto) (0.00-1.00) K/uL Eos # (Auto) (0.00-0.50) K/uL Baso # (Auto) (0.00-0.20) K/uL Sodium 147 H (136-145) mmol/L Potassium 5.0 (3.5-5.1) mmol/L Chloride 114 H (98-107) mmol/L Carbon Dioxide 20.7 L (21.0-32.0) mmol/L BUN 79 H D (7-18) mg/dL Creatinine 2.70 H (0.51-1.17) mg/dL Est Cr Clr Drug Dosing 12.39 mL/min Estimated GFR (MDRD) 17 mL/min Glucose 107 H (70-99) mg/dL POC Glucose 104 118 H (65-110) mg/dl Uric Acid 7.2 (2.6-7.2) mg/dL Calcium 8.0 L (8.5-10.1) mg/dL Phosphorus 4.5 (2.6-4.7) mg/dL Magnesium 1.6 L (1.8-2.4) mg/dL Result Diagrams: 06/01/20 07:19 06/01/20 07:19 Sepsis Event Note - Evaluation Sepsis Screening Result: No Definite Risk - Focused Exam Vital Signs: Vital Signs Temp Pulse Pulse Resp BP BP Pulse Ox 06/01/20 08:05 95 137/79 06/01/20 08:00 37.3 C 95 19 137/79 98 - Problem List & Annotations (1) Diabetic nephropathy Status: Chronic Priority: High Current Visit: Yes Qualifiers: Diabetes mellitus type: type 2 Qualified Code(s): E11.21 - Type 2 diabetes mellitus with diabetic nephropathy Annotation/Comment:: Renal function significantly improved on 06/01 after discontinuation of multiple nephrotoxic medications on 05/31 as below. Acute renal failures/exacerbation of her chronic diabetic nephropathy with significant hyperkalemia likely secondary to her medical therapy as below, including spir onolactone and losartan. Lactulose was initiated by on-call physician. Initially patient stated that she did not wish to be transferred to [place] and does not wish to consider dialysis, which has been discussed in the past by her previous physicians. The patient is reconsidering this at this time, although secondary to improved renal function on 06/01 this is likely not needed at this time. Continue aggressive care as below with consideration of patient transfer for nephrology consultation or on an outpatient basis. The patient will likely need long-term residential placement, if dialysis therapy is initiated. (2) Diarrhea SNOMED Code(s): 51898106 Code(s): R19.7 - DIARRHEA, UNSPECIFIED Status: Acute Priority: High Current Visit: Yes Onset Date: ~05/30/20 Qualifiers: Diarrhea type: unspecified type Qualified Code(s): R19.7 - Diarrhea, unspecified Annotation/Comment:: Severe diarrhea possibly secondary to her renal failure and/or other etiology. Stool specimen was collected and positive today for C. difficile toxin with additional stool culture and sensitivity still pending. Imodium A-D was ordered, however not needed at this time with no diarrhea on 06/01. Continue IV Rocephin secondary to her low-grade fever this morning and probable UTI with urine culture and sensitivity still pending. Decrease antibiotic therapy once these results have been obtained. Initiate oral Flagyl therapy today secondary to her C. difficile. Continue to observe closely with Kayexalate ordered for her significant hyperkalemia, however this has been discontinued. Continue to observe closely for now. (3) Diabetes mellitus SNOMED Code(s): 74138626 Code(s): E11.9 - TYPE 2 DIABETES MELLITUS WITHOUT COMPLICATIONS Status: Chronic Priority: Medium Current Visit: Yes Qualifiers: Diabetes mellitus type: type 2 Diabetes mellitus mcc insulin use: with exterminator helper use Diabetes mellitus complication status: with kidney complications Diabetes mellitus complication detail: with chronic kidney disease Chronic kidney disease stage: stage 4 (severe) Qualified Code(s): E11.22 - Type 2 diabetes mellitus with diabetic chronic kidney disease; N18.4 - Chronic kidney disease, stage 4 (severe); Z79.4 - [facility] (current) use of insulin Annotation/Comment:: IV human regular insulin given secondary to her hyperkalemia as above. Patient was changed to a 4 times daily Humalog subcu sliding scale on 05/31 with significantly improved Accu-Cheks at this time. Note diabetic nephropathy, diabetic neuropathy, etc.. Glycosylated hemoglobin 5.0% on 06/01/2020. (4) Hyperphosphatemia SNOMED Code(s): 00183390 Code(s): E83.39 - OTHER DISORDERS OF PHOSPHORUS METABOLISM Status: Acute Priority: High Current Visit: No Onset Date: 07/14/19 Annotation/Comment:: Chronic history of intermittent hyperphosphatemia secondary to recurrent exacerbation of her diabetic nephropathy. Consider PhosLo depending on her clinical course with phosphate level normal 06/01/20 despite her recent acute renal failure as above. (5) UTI (urinary tract infection) SNOMED Code(s): 77897271 Code(s): N39.0 - URINARY TRACT INFECTION, SITE NOT SPECIFIED Status: Acute Priority: High Current Visit: Yes Onset Date: ~12/03/19 Qualifiers: Urinary tract infection type: acute cystitis Hematuria presence: without hematuria Qualified Code(s): N30.00 - Acute cystitis without hematuria Annotation/Comment:: As above. Initial clean-catch UA was positive on admission, however note concomitant diarrhea with urine specimen not set up for culture and sensitivity. Quick cath UA was collected on 05/31 with persistent positive UTI and IV Rocephin initiated. Urine culture is pending with this specimen. Patient has a long history of recurrent UTIs. (6) Anemia SNOMED Code(s): 859207128 Code(s): D64.9 - ANEMIA, UNSPECIFIED Status: Chronic Priority: Medium Current Visit: Yes Onset Date: 02/27/18 Qualifiers: Anemia type: iron deficiency Annotation/Comment:: Hemoglobin stable on 06/01/2028. Note significant progression of her anemia since admission likely secondary to rehydration effect with hemoglobin of 9.8 on 05/31 in comparison to 12.4 on admission. Long history of iron deficiency anemia with iron supplement reinitiated on 05/31. Continue to observe closely during this hospitalization. No evidence of acute GI bleed, however IV Protonix was initiated on 05/31. Further work-up depending on her clinical course. Note chronic renal insufficiency. (7) CHF (congestive heart failure) SNOMED Code(s): 16584000 Code(s): I50.9 - HEART FAILURE, UNSPECIFIED Status: Chronic Priority: High Current Visit: Yes Onset Date: 02/21/17 Qualifiers: Heart failure chronicity: acute on chronic Annotation/Comment:: No chest pain or anginal type symptoms either prior to ad mission and/or during this hospitalization. EKG showed complete bifascicular bundle branch block on admission with history of PACs, PVCs, and previous SVT. Note known history of cardiomegaly with echocardiogram last performed on 08/26/18 with an ejection fraction of 45% at that time and history of pulmonary hypertension. Consider repeat echocardiogram once her medical therapy has been determined on an outpatient basis. No previous problems with intolerance to MONICA inhibitor's and spironolactone with secondary hyperkalemia. Medication compliance has also been an issue in the past. Secondary to her hyperkalemia her previous Bumex therapy will be changed to IV Lasix with patient initially hy drated secondary to her renal failure and significant diarrhea on admission. She is eating well at this time with IV fluids discontinued on 05/31. Her previous losartan and spironolactone therapy were discontinued on 05/31 secondary to her significant hyperkalemia on admission with patient previously extremely sensitive to these medications secondary to her renal disease. (8) COPD (chronic obstructive pulmonary disease) SNOMED Code(s): 02837090 Code(s): J44.9 - CHRONIC OBSTRUCTIVE PULMONARY DISEASE, UNSPECIFIED Status: Chronic Priority: Medium Current Visit: Yes Qualifiers: COPD type: emphysema Emphysema type: panlobular Qualified Code(s): J43.1 - Panlobular emphysema Annotation/Comment:: No recent fever or bronchitic type symptoms. Continue nebulizer and inhaler therapy as before. (9) Hypertension SNOMED Code(s): 45734361 Code(s): I10 - ESSENTIAL (PRIMARY) HYPERTENSION Status: Chronic Priority: Medium Current Visit: Yes Qualifiers: Hypertension type: essential hypertension Annotation/Comment:: Stable during this hospitalization. (10) Hypocalcemia SNOMED Code(s): 0157931 Code(s): E83.51 - HYPOCALCEMIA Status: Chronic Priority: Medium Current Visit: Yes Onset Date: 03/01/18 Annotation/Comment:: Resumed OTC Tums as calcium supplementation and GI prophylaxis on 06/01/2019. Continue to observe closely. (11) Osteoarthritis SNOMED Code(s): 929607296 Code(s): M19.90 - UNSPECIFIED OSTEOARTHRITIS, UNSPECIFIED SITE Status: Chronic Priority: High Current Visit: Yes Qualifiers: Osteoarthritis location: multiple joints Osteoarthritis type: primary Qualified Code(s): M89.49 - Other hypertrophic osteoarthropathy, multiple sites Annotation/Comment:: Stable by history. (12) Peptic reflux disease SNOMED Code(s): 302143694 Code(s): K21.9 - GASTRO-ESOPHAGEAL REFLUX DISEASE WITHOUT ESOPHAGITIS Status: Chronic Priority: Medium Current Visit: Yes Annotation/Comment:: Stable by history. IV Protonix initiated on 05/31 as above (13) Need for comfort care SNOMED Code(s): 143317833, 661130740 Code(s): CDW7303 - Status: Chronic Priority: Medium Current Visit: Yes Annotation/Comment:: Patient requesting comfort care on admission as above. Long-term prognosis poor secondary to patient's recurrent renal failure/diabetic nephropathy and multiple healthcare issues as above. She is now considering possible hospital transfer as above. (14) Tobacco abuse counseling SNOMED Code(s): 341095192, 642007740, 166849034 Code(s): Z71.6 - TOBACCO ABUSE COUNSELING Status: Chronic Priority: Medium Current Visit: Yes Annotation/Comment:: Tobacco smoke exposure was once again extensively discussed with the patient with tobacco cessation information to be provided at discharge. (15) Tinea cruris SNOMED Code(s): 866303207 Code(s): B35.6 - TINEA CRURIS Status: Acute Priority: Medium Current Visit: Yes Onset Date: ~05/31/20 Annotation/Comment:: Lotrimin AF started on 05/31. (16) Hypomagnesemia SNOMED Code(s): 069055272 Code(s): E83.42 - HYPOMAGNESEMIA Status: Inactive Priority: Medium Current Visit: Yes Onset Date: 02/21/17 Annotation/Comment:: Magnesium level once again decreased secondary to her IV Lasix therapy. Initiate low-dose therapy with caution secondary to her renal disease. Close follow-up by regular provider after discharge. (17) C. difficile colitis SNOMED Code(s): 215186045 Code(s): A04.72 - ENTEROCOLITIS D/T CLOSTRIDIUM DIFFICILE, NOT SPCF RECUR Status: Acute Priority: High Current Visit: Yes Onset Date: ~05/30/20 Annotation/Comment:: As above - Problem List Review Problem List Initiated/Reviewed/Updated: Yes - My Orders Last 24 Hours: My Active Orders 05/31/20 12:00 Furosemide [Lasix] 40 mg IVPUSH Q8H Pantoprazole [ProTONIX IV] 40 mg IVPUSH Q12H cefTRIAXone [Rocephin] 1 gm Sodium Chloride 0.9% [Normal Saline] 100 ml IV Q24H 05/31/20 20:00 Calcium Carbonate [Tums Extra Strength] 1,500 mg PO BEDTIME - Assessment Assessment:: As above - Plan Plan:: As above. Extensive precautions were given to the patient, who is in agreement with the treatment plan. The patient will require about 1-2 days of inpatient/acute care secondary to multiple health problems as above. Olena oconnor physician assumes care in the a.m.
[2020-06-01] MEDS: Enoxaparin 30 MG/0.3 ML Syringe SUBCUT SCH (13:47)
[2020-06-01] MEDS: metroNIDAZOLE 500 MG Tab PO SCH ×2 (13:47→21:18)
[2020-06-01] MEDS: Magnesium Oxide 400 MG Tab PO SCH (13:47)
[2020-06-01] MEDS: Carvedilol 12.5 MG Tab PO SCH (17:03)
[2020-06-01] MEDS ORDERED: Spironolactone 25 MG Tab PO SCH (20:00)
[2020-06-01] MEDS: Calcium Carbonate 750 MG Tab.Chew PO SCH (21:18)
[2020-06-01] MEDS: atorvaSTATin 40 MG Tab PO SCH (21:18)
[2020-06-01] MEDS: Latanoprost 0.005% Ophth Soln 2.5 ML Bottle EYEBOTH SCH (21:18)
[2020-06-02] MEDS: Magnesium Oxide 400 MG Tab PO SCH (07:27)
[2020-06-02] MEDS: Furosemide 40 MG/4 ML VIAL IVPUSH SCH ×2 (07:27→17:04)
[2020-06-02] MEDS: Carvedilol 25 MG Tab PO SCH (07:27)
[2020-06-02] MEDS: Ferrous Sulfate 325 MG Tab PO SCH ×2 (07:27→17:04)
[2020-06-02] MEDS: Clotrimazole 1% Crm 30 GM Tube TOP SCH ×2 (07:28→17:05)
[2020-06-02] MEDS: Sodium Chloride 0.9% 10 ML Syringe FLUSH PRN ×3 (07:29→17:07)
[2020-06-02] MEDS: Insulin Lispro 100 Units/ML 3 ML Vial SUBCUT SCH ×4 (07:36→21:05)
[2020-06-02] MEDS ORDERED: metroNIDAZOLE 500 MG Tab PO SCH (08:00)
[2020-06-02] MEDS: Albuterol/Ipratropium 3.0-0.5 MG/3 ML Neb Soln NEB SCH ×4 (08:23→20:07)
[2020-06-02] MEDS: Aspirin 81 MG Tab.EC PO SCH (08:23)
[2020-06-02] MEDS: Dorzolamide 2% Ophth Soln 10 ML Bottle EYEBOTH SCH ×2 (08:23→17:06)
[2020-06-02] MEDS: Pantoprazole 40 MG Vial IVPUSH SCH (11:28)
[2020-06-02] MEDS ORDERED: cefTRIAXone 1 GM in Sodium Chloride 0.9% 100 ML IV SCH (12:00)
[2020-06-02] MEDS: Enoxaparin 30 MG/0.3 ML Syringe SUBCUT SCH (15:11)
[2020-06-02] MEDS: metroNIDAZOLE 500 MG Tab PO SCH ×2 (15:11→20:07)
--- NOTE | 2020-06-02 16:12 | PCM.PN ---
- General Info Date of Service: 06/02/20 Admission Dx/Problem (Free Text): 1. Acute renal failure with history of chronic renal insufficiency 2. Hyperkalemia 3. CHF 4. Diabetes mellitus 5. C-Diff with secondary dehydration Subjective Update: Patient feels good today. Nausea noted after she received her IV Rocephin Functional Status: Reports: Pain Controlled, Tolerating Diet, Ambulating, Urinating. Denies: New Symptoms - Review of Systems General: Denies: Fever, Malaise, Chills, Night Sweats HEENT: Denies: Ear Pain, Eye Pain, Headaches, Sinus Congestion, Sore Throat, Rhinitis, Visual Changes Pulmonary: Reports: Other (Baseline COPD complaints/denies acute changes). Denies: Sputum, Hemoptysis Cardiovascular: Denies: Chest Pain, Palpitations, Edema, Lightheadedness Gastrointestinal: Reports: Nausea. Denies: Abdominal Pain, Constipation, Diarrhea, Difficulty Swallowing, Hematochezia, Melena, Vomiting Genitourinary: Reports: Dysuria. Denies: Hematuria, Flank Pain Musculoskeletal: Reports: Other (no acute changes from baseline) Skin: Reports: No Symptoms Neurological: Reports: No Symptoms Psychiatric: Reports: No Symptoms - Patient Data Vitals - Most Recent: Last Vital Signs Temp 36.3 C 06/02/20 14:00 Pulse 77 06/02/20 14:00 Resp 17 06/02/20 14:00 BP 120/67 06/02/20 14:00 Pulse Ox 98 06/02/20 14:00 Weight - Most Recent: 76.022 kg I&O - Last 24 Hours: Intake & Output 06/01/20 06/02/20 06/02/20 22:59 06:59 14:59 Intake Total 340 1220 Output Total 500 Balance 340 -500 1220 Lab Results Last 24 Hours: Laboratory Results - last 24 hr 06/01/20 06/01/20 06/02/20 Range/Units 17:07 21:09 07:03 WBC 6.7 (4.0-10.2) K/uL RBC 3.39 L (3.77-5.09) M/uL Hgb 10.1 L (11.7-15.5) g/dL Hct 33.0 L (34.0-46.0) % MCV 97.3 (84.0-98.0) fL MCH 29.8 (28.2-33.3) pg MCHC 30.6 L (31.7-36.0) g/dL RDW 13.0 (11.2-14.1) % Plt Count 140 L (150-350) K/uL Neut % (Auto) 56.1 (45.0-80.0) % Lymph % (Auto) 27.8 (10.0-50.0) % [place] % (Auto) 8.8 (2.0-14.0) % Eos % (Auto) 6.9 H (0.0-5.0) % Baso % (Auto) 0.4 (0.0-2.0) % Neut # (Auto) 3.74 (1.40-7.00) K/uL Lymph # (Auto) 1.86 (0.50-3.50) K/uL [place] # (Auto) 0.59 (0.00-1.00) K/uL Eos # (Auto) 0.46 (0.00-0.50) K/uL Baso # (Auto) 0.03 (0.00-0.20) K/uL Sodium (136-145) mmol/L Potassium (3.5-5.1) mmol/L Chloride (98-107) mmol/L Carbon Dioxide (21.0-32.0) mmol/L BUN (7-18) mg/dL Creatinine (0.51-1.17) mg/dL Est Cr Clr Drug Dosing mL/min Estimated GFR (MDRD) mL/min Glucose (70-99) mg/dL POC Glucose 96 116 H (65-110) mg/dl Calcium (8.5-10.1) mg/dL 06/02/20 06/02/20 Range/Units 07:03 11:25 WBC (4.0-10.2) K/uL RBC (3.77-5.09) M/uL Hgb (11.7-15.5) g/dL Hct (34.0-46.0) % MCV (84.0-98.0) fL MCH (28.2-33.3) pg MCHC (31.7-36.0) g/dL RDW (11.2-14.1) % Plt Count (150-350) K/uL Neut % (Auto) (45.0-80.0) % Lymph % (Auto) (10.0-50.0) % [place] % (Auto) (2.0-14.0) % Eos % (Auto) (0.0-5.0) % Baso % (Auto) (0.0-2.0) % Neut # (Auto) (1.40-7.00) K/uL Lymph # (Auto) (0.50-3.50) K/uL [place] # (Auto) (0.00-1.00) K/uL Eos # (Auto) (0.00-0.50) K/uL Baso # (Auto) (0.00-0.20) K/uL Sodium 144 (136-145) mmol/L Potassium 4.3 (3.5-5.1) mmol/L Chloride 110 H (98-107) mmol/L Carbon Dioxide 22.0 (21.0-32.0) mmol/L BUN 68 H (7-18) mg/dL Creatinine 2.51 H (0.51-1.17) mg/dL Est Cr Clr Drug Dosing 13.33 mL/min Estimated GFR (MDRD) 18 mL/min Glucose 123 H (70-99) mg/dL POC Glucose 159 H (65-110) mg/dl Calcium 8.3 L (8.5-10.1) mg/dL Pool Results Last 24 Hours: Microbiology 05/31/20 10:02 Urine Culture - Preliminary Urine, Quick Cath (In-Out) Gram Positive Cocci 05/30/20 17:00 Clostridioides difficile (PCR) - Final Stool / Feces Clostridioides difficile Toxin Assay - Final Med Orders - Current: Current Medications Acetaminophen (Acetaminophen 325 Mg Tab) 650 mg PO Q4H PRN PRN Reason: analgesia/fever Last Admin: 06/01/20 08:56 Dose: 650 mg Documented by: Albuterol (Proventil Hfa) 0 gm INH Q2H PRN PRN Reason: Shortness of Breath Albuterol/Ipratropium (Albuterol/Ipratropium 3.0-0.5 Mg/3 Ml Neb Soln) 3 ml NEB QIDRT CHRISS Last Admin: 06/02/20 11:27 Dose: 3 ml Documented by: Aspirin (Aspirin 81 Mg Tab.Ec) 81 mg PO DAILY [facility] Last Admin: 06/02/20 08:23 Dose: 81 mg Documented by: Atorvastatin Calcium (Lipitor) 40 mg PO BEDTIME [facility] Last Admin: 06/01/20 21:18 Dose: 40 mg Documented by: Bisacodyl (Dulcolax) 10 mg RECTAL DAILY PRN PRN Reason: Constipation Calcium Carbonate/Glycine (Tums Extra Strength) 1,500 mg PO BEDTIME [facility] Last Admin: 06/01/20 21:18 Dose: 1,500 mg Documented by: Carvedilol (Coreg) 12.5 mg PO QPM [facility] Last Admin: 06/01/20 17:03 Dose: 12.5 mg Documented by: Carvedilol (Carvedilol 25 Mg Tab) 25 mg PO QAM [facility] Last Admin: 06/02/20 07:27 Dose: 25 mg Documented by: Clotrimazole (Lotrimin Af 1% Crm) 1 gm TOP BID [facility] Last Admin: 06/02/20 07:28 Dose: 1 applic Documented by: Dextrose/Water (Dextrose 50% In Water) 50 ml IV ASDIRECTED PRN PRN Reason: Hypoglycemia Dextrose/Water (Dextrose 50% In Water) 50 ml IV ASDIRECTED PRN PRN Reason: Hypoglycemia Dorzolamide HCl (Trusopt 2% Ophth Soln) 0 ml EYEBOTH BID [facility] Last Admin: 06/02/20 08:23 Dose: 1 drop Documented by: Enoxaparin Sodium (Lovenox) 30 mg SUBCUT Q24H [facility] Last Admin: 06/01/20 13:47 Dose: 30 mg Documented by: Ferrous Sulfate (Ferrous Sulfate 325 Mg Tab) 325 mg PO BID [facility] Last Admin: 06/02/20 07:27 Dose: 325 mg Documented by: Furosemide (Furosemide 40 Mg/4 Ml Vial) 40 mg IVPUSH Q8H [facility] Last Admin: 06/01/20 21:19 Dose: 40 mg Documented by: Glucagon (Glucagen) 1 mg IM ASDIRECTED PRN PRN Reason: Hypoglycemia Ceftriaxone Sodium 1 gm/ (Sodium Chloride) 100 mls @ 200 mls/hr IV Q24H [facility] Last Admin: 06/01/20 11:59 Dose: 200 mls/hr Documented by: Insulin Human Lispro (Humalog) 0 unit SUBCUT QIDACANDBED [facility]; Protocol Last Admin: 06/02/20 11:41 Dose: 2 unit Documented by: Latanoprost (Xalatan 0.005% Ophth Soln) 0 ml EYEBOTH BEDTIME [facility] Last Admin: 06/01/20 21:18 Dose: 1 drop Documented by: Loperamide HCl (Imodium Ad) 2 mg PO Q6H PRN PRN Reason: Diarrhea Magnesium Oxide (Magnesium Oxide 400 Mg Tab) 400 mg PO DAILY [facility] Last Admin: 06/02/20 07:27 Dose: 400 mg Documented by: Metronidazole (Metronidazole 500 Mg Tab) 500 mg PO Q8H [facility] Last Admin: 06/01/20 21:18 Dose: 500 mg Documented by: Nitroglycerin (Nitrostat) 0.4 mg SL ASDIRECTED PRN PRN Reason: Chest Pain Ondansetron HCl (Zofran) 4 mg IVPUSH Q6H PRN PRN Reason: Nausea/Vomiting Pantoprazole Sodium (Pantoprazole 40 Mg Vial) 40 mg IVPUSH Q12H [facility] Last Admin: 06/02/20 11:28 Dose: 40 mg Documented by: Sodium Chloride (Saline Flush) 10 ml FLUSH ASDIRECTED PRN PRN Reason: Keep Vein Open Last Admin: 06/02/20 11:29 Dose: 10 ml Documented by: Discontinued Medications Bumetanide (Bumex) 2 mg PO DAILY [facility] Dextrose/Water (Dextrose 50% In Water) 50 ml IVPUSH ONETIME ONE Stop: 05/30/20 14:18 Last Admin: 05/30/20 14:47 Dose: 50 ml Documented by: Glucagon (Glucagen) 1 mg IM ASDIRECTED PRN PRN Reason: Hypoglycemia Sodium Chloride (Normal Saline) 1,000 mls @ 125 mls/hr IV ASDIRECTED [facility] Last Admin: 05/30/20 12:43 Dose: 125 mls/hr Documented by: Sodium Chloride (Normal Saline) 1,000 mls @ 500 mls/hr IV .BOLUS ONE Stop: 05/30/20 15:40 Last Admin: 05/30/20 14:00 Dose: 500 mls/hr Documented by: Sodium Chloride (Normal Saline) 1,000 mls @ 40 mls/hr IV ASDIRECTED [facility] Last Admin: 05/31/20 08:37 Dose: 40 mls/hr Documented by: Insulin Human Regular (Humulin R) 0 unit SUBCUT BIDAC [facility]; Protocol Last Admin: 05/31/20 08:33 Dose: Not Given Documented by: Insulin Human Regular (Humulin R) 10 unit IV ONETIME ONE Stop: 05/30/20 14:26 Last Admin: 05/30/20 14:43 Dose: 10 units Documented by: Losartan Potassium (Cozaar) 50 mg PO BID [facility] Last Admin: 05/31/20 08:31 Dose: 50 mg Documented by: Ondansetron HCl (Zofran) 4 mg IVPUSH ONETIME ONE Stop: 05/30/20 12:25 Last Admin: 05/30/20 12:38 Dose: 4 mg Documented by: Prochlorperazine Edisylate (Compazine) 5 mg IVPUSH ONETIME ONE Stop: 05/30/20 13:56 Last Admin: 05/30/20 14:24 Dose: 5 mg Documented by: Sodium Polystyrene Sulfonate (Kayexalate) 45 gm PO NOW ONE Stop: 05/30/20 13:43 Last Admin: 05/30/20 14:02 Dose: Not Given Documented by: Sodium Polystyrene Sulfonate (Kayexalate) 15 gm PO ONETIME ONE Stop: 05/30/20 13:56 Last Admin: 05/30/20 14:24 Dose: 15 gm Documented by: Sodium Polystyrene Sulfonate (Kayexalate) 15 gm PO ONETIME ONE Stop: 05/30/20 19:01 Last Admin: 05/30/20 19:22 Dose: 15 gm Documented by: Sodium Polystyrene Sulfonate (Kayexalate) 15 gm PO ONETIME ONE Stop: 05/31/20 08:01 Last Admin: 05/31/20 08:30 Dose: 15 gm Documented by: Spironolactone (Aldactone) 12.5 mg PO Q12HR [facility] - Exam General: Alert, Oriented, Cooperative, No Acute Distress HEENT: Pupils Equal, Pupils Reactive, EOMI, Mucous Membr. Moist/[place] Neck: Supple Lungs: Normal Respiratory Effort, Rhonchi (mild/left). No: Rales, Rub, Stridor, Wheezing Cardiovascular: Regular Rate, Regular Rhythm GI/Abdominal Exam: Normal Bowel Sounds, Soft, Non-Tender, No Distention (Female) Exam: Deferred Back Exam: No: CVA Tenderness (L), Muscle Spasm, Paraspinal Tenderness, Verte bral Tenderness Extremities: Normal Range of Motion, Non-Tender, Normal Capillary Refill Skin: Warm, Dry Neurological: No New Focal Deficit Psy/Mental Status: Alert, Normal Affect, Normal Mood - Patient Data Lab Results Last 24 hrs: Laboratory Results - last 24 hr 06/01/20 06/01/20 06/02/20 Range/Units 17:07 21:09 07:03 WBC 6.7 (4.0-10.2) K/uL RBC 3.39 L (3.77-5.09) M/uL Hgb 10.1 L (11.7-15.5) g/dL Hct 33.0 L (34.0-46.0) % MCV 97.3 (84.0-98.0) fL MCH 29.8 (28.2-33.3) pg MCHC 30.6 L (31.7-36.0) g/dL RDW 13.0 (11.2-14.1) % Plt Count 140 L (150-350) K/uL Neut % (Auto) 56.1 (45.0-80.0) % Lymph % (Auto) 27.8 (10.0-50.0) % [place] % (Auto) 8.8 (2.0-14.0) % Eos % (Auto) 6.9 H (0.0-5.0) % Baso % (Auto) 0.4 (0.0-2.0) % Neut # (Auto) 3.74 (1.40-7.00) K/uL Lymph # (Auto) 1.86 (0.50-3.50) K/uL [place] # (Auto) 0.59 (0.00-1.00) K/uL Eos # (Auto) 0.46 (0.00-0.50) K/uL Baso # (Auto) 0.03 (0.00-0.20) K/uL Sodium (136-145) mmol/L Potassium (3.5-5.1) mmol/L Chloride (98-107) mmol/L Carbon Dioxide (21.0-32.0) mmol/L BUN (7-18) mg/dL Creatinine (0.51-1.17) mg/dL Est Cr Clr Drug Dosing mL/min Estimated GFR (MDRD) mL/min Glucose (70-99) mg/dL POC Glucose 96 116 H (65-110) mg/dl Calcium (8.5-10.1) mg/dL 06/02/20 06/02/20 Range/Units 07:03 11:25 WBC (4.0-10.2) K/uL RBC (3.77-5.09) M/uL Hgb (11.7-15.5) g/dL Hct (34.0-46.0) % MCV (84.0-98.0) fL MCH (28.2-33.3) pg MCHC (31.7-36.0) g/dL RDW (11.2-14.1) % Plt Count (150-350) K/uL Neut % (Auto) (45.0-80.0) % Lymph % (Auto) (10.0-50.0) % [place] % (Auto) (2.0-14.0) % Eos % (Auto) (0.0-5.0) % Baso % (Auto) (0.0-2.0) % Neut # (Auto) (1.40-7.00) K/uL Lymph # (Auto) (0.50-3.50) K/uL [place] # (Auto) (0.00-1.00) K/uL Eos # (Auto) (0.00-0.50) K/uL Baso # (Auto) (0.00-0.20) K/uL Sodium 144 (136-145) mmol/L Potassium 4.3 (3.5-5.1) mmol/L Chloride 110 H (98-107) mmol/L Carbon Dioxide 22.0 (21.0-32.0) mmol/L BUN 68 H (7-18) mg/dL Creatinine 2.51 H (0.51-1.17) mg/dL Est Cr Clr Drug Dosing 13.33 mL/min Estimated GFR (MDRD) 18 mL/min Glucose 123 H (70-99) mg/dL POC Glucose 159 H (65-110) mg/dl Calcium 8.3 L (8.5-10.1) mg/dL Result Diagrams: 06/02/20 07:03 06/02/20 07:03 Pool Results Last 24 hrs: Microbiology 05/31/20 10:02 Urine Culture - Preliminary Urine, Quick Cath (In-Out) Gram Positive Cocci 05/30/20 17:00 Clostridioides difficile (PCR) - Final Stool / Feces Clostridioides difficile Toxin Assay - Final Sepsis Event Note - Evaluation Sepsis Screening Result: No Definite Risk - Focused Exam Vital Signs: Vital Signs Temp Pulse Pulse Resp BP BP Pulse Ox 06/02/20 14:00 36.3 C 77 17 120/67 98 06/02/20 08:00 37.1 C 64 16 128/80 06/02/20 07:27 64 128/80 - Problem List & Annotations (1) C. difficile colitis SNOMED Code(s): 867438763 Code(s): A04.72 - ENTEROCOLITIS D/T CLOSTRIDIUM DIFFICILE, NOT SPCF RECUR Status: Acute Priority: High Current Visit: Yes Onset Date: ~05/30/20 Annotation/Comment:: Receiving Flagyl. Loose stools have resolved. (2) Diarrhea SNOMED Code(s): 90054126 Code(s): R19.7 - DIARRHEA, UNSPECIFIED Status: Acute Priority: High Current Visit: Yes Onset Date: ~05/30/20 Qualifiers: Diarrhea type: unspecified type Qualified Code(s): R19.7 - Diarrhea, unspecified Annotation/Comment:: + for C-diff. Stool C&S pending. Loose stools have resolved. On Flagyl. (3) Hyperkalemia SNOMED Code(s): 22303370 Code(s): E87.5 - HYPERKALEMIA Status: Acute Priority: High Current Visit: Yes Annotation/Comment:: Significant elevation of potassium noted during ER evaluation. Suspect secondary to acute renal failure due to dehydration/loose stools. Much improved after hydration/kayexalate (4) Tinea cruris SNOMED Code(s): 395894041 Code(s): B35.6 - TINEA CRURIS Status: Acute Priority: Medium Current Visit: Yes Onset Date: ~05/31/20 Annotation/Comment:: Lotrimin AF started on 05/31. (5) UTI (urinary tract infection) SNOMED Code(s): 40124653 Code(s): N39.0 - URINARY TRACT INFECTION, SITE NOT SPECIFIED Status: Acute Priority: High Current Visit: Yes Onset Date: ~12/03/19 Qualifiers: Urinary tract infection type: acute cystitis Hematuria presence: without hematuria Qualified Code(s): N30.00 - Acute cystitis without hematuria Annotation/Comment:: On Rocephin. Initial clean-catch UA was positive on admission, however note concomitant diarrhea with urine specimen not set up for culture and sensitivity. Quick cath UA was collected on 05/31 with persistent positive UTI and IV Rocephin initiated. Urine culture is pending with this specimen. Patient has a long history of recurrent UTIs. (6) Anemia SNOMED Code(s): 224519600 Code(s): D64.9 - ANEMIA, UNSPECIFIED Status: Chronic Priority: Medium Current Visit: Yes Onset Date: 02/27/18 Qualifiers: Anemia type: iron deficiency Annotation/Comment:: Hemoglobin stable on 06/01/2028. Note significant progression of her anemia since admission likely secondary to rehydration effect with hemoglobin of 9.8 on 05/31 in comparison to 12.4 on admission. Long history of iron deficiency anemia with iron supplement reinitiated on 05/31. Continue to observe closely during this hospitalization. No evidence of acute GI bleed, however IV Protonix was initiated on 05/31. Further work-up depending on her clinical course. Note chronic renal insufficiency. (7) CHF (congestive heart failure) SNOMED Code(s): 71431597 Code(s): I50.9 - HEART FAILURE, UNSPECIFIED Status: Chronic Priority: High Current Visit: Yes Onset Date: 02/21/17 Qualifiers: Heart failure chronicity: acute on chronic Annotation/Comment:: No chest pain or anginal type symptoms either prior to admission and/or during this hospitalization. EKG showed complete bifascicular bundle branch block on admission with history of PACs, PVCs, and previous SVT. Note known history of cardiomegaly with echocardiogram last performed on 08/26/18 with an ejection fraction of 45% at that time and history of pulmonary hypertension. Consider repeat echocardiogram once her medical therapy has been determined on an outpatient basis. No previous problems with intolerance to MONICA inhibitor's and spironolactone with secondary hyperkalemia. Medication compliance has also been an issue in the past. Secondary to her hyperkalemia her previous Bumex therapy will be changed to IV Lasix with patient initially hydrated secondary to her renal failure and significant diarrhea on admission. She is eating well at this time with IV fluids discontinued on 05/31. Her previous losartan and spironolactone therapy were discontinued on 05/31 secondary to her significant hyperkalemia on admission with patient previously extremely sensitive to these medications secondary to her renal disease. (8) COPD (chronic obstructive pulmonary disease) SNOMED Code(s): 99087438 Code(s): J44.9 - CHRONIC OBSTRUCTIVE PULMONARY DISEASE, UNSPECIFIED Status: Chronic Priority: Medium Current Visit: Yes Qualifiers: COPD type: emphysema Emphysema type: panlobular Qualified Code(s): J43.1 - Panlobular emphysema Annotation/Comment:: No recent fever or bronchitic type symptoms. Continue nebulizer and inhaler therapy as before. 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 Patient was changed to a 4 times daily Humalog subcu sliding scale on 05/31 with significantly improved Accu-Cheks at this time. Note diabetic nephropathy, diabetic neuropathy, etc.. Glycosylated hemoglobin 5.0% on 06/01/2020. (10) Diabetic nephropathy Status: Chronic Priority: High Current Visit: Yes Qualifiers: Diabetes mellitus type: type 2 Qualified Code(s): E11.21 - Type 2 diabetes mellitus with diabetic nephropathy Annotation/Comment:: Renal function significantly improved on 06/01 after discontinuation of multiple nephrotoxic medications on 05/31 as below. Acute renal failures/exacerbation of her chronic diabetic nephropathy with significant hyperkalemia likely secondary to her medical therapy as below, including s pironolactone and losartan. Lactulose was initiated by on-call physician. Initially patient stated that she did not wish to be transferred to [place] and does not wish to consider dialysis, which has been discussed in the past by her previous physicians. The patient is reconsidering this at this time, although secondary to improved renal function on 06/01 this is likely not needed at this time. Continue aggressive care as below with consideration of patient transfer for nephrology consultation or on an outpatient basis. The patient will likely need long-term intermediate placement, if dialysis therapy is initiated. (11) Hypertension SNOMED Code(s): 79066535 Code(s): I10 - ESSENTIAL (PRIMARY) HYPERTENSION Status: Chronic Priority: Medium Current Visit: Yes Qualifiers: Hypertension type: essential hypertension Annotation/Comment:: Stable during this hospitalization. (12) Hypocalcemia SNOMED Code(s): 7992682 Code(s): E83.51 - HYPOCALCEMIA Status: Chronic Priority: Medium Current Visit: Yes Onset Date: 03/01/18 Annotation/Comment:: Resumed OTC Tums as calcium supplementation and GI prophylaxis on 06/01/2019. Continue to observe closely. (13) Need for comfort care SNOMED Code(s): 460281131, 707645450 Code(s): GYD4531 - Status: Chronic Priority: Medium Current Visit: Yes Annotation/Comment:: Patient requesting comfort care on admission as above. Long-term prognosis poor secondary to patient's recurrent renal failure/diabetic nephropathy and multiple healthcare issues as above. She is now considering possible hospital transfer as above. (14) Osteoarthritis SNOMED Code(s): 246779387 Code(s): M19.90 - UNSPECIFIED OSTEOARTHRITIS, UNSPECIFIED SITE Status: Chronic Priority: High Current Visit: Yes Qualifiers: Osteoarthritis location: multiple joints Osteoarthritis type: primary Qualified Code(s): M89.49 - Other hypertrophic osteoarthropathy, multiple sites Annotation/Comment:: Stable by history. (15) Peptic reflux disease SNOMED Code(s): 540208346 Code(s): K21.9 - GASTRO-ESOPHAGEAL REFLUX DISEASE WITHOUT ESOPHAGITIS Status: Chronic Priority: Medium Current Visit: Yes Annotation/Comment:: Stable by history. IV Protonix initiated on 05/31 as above (16) Hypomagnesemia SNOMED Code(s): 837312598 Code(s): E83.42 - HYPOMAGNESEMIA Status: Inactive Priority: Medium Current Visit: Yes Onset Date: 02/21/17 Annotation/Comment:: Magnesium level once again decreased secondary to her IV Lasix therapy. Initiate low-dose therapy with caution secondary to her renal disease. Close follow-up by regular provider after discharge. (17) Hyperphosphatemia SNOMED Code(s): 52852602 Code(s): E83.39 - OTHER DISORDERS OF PHOSPHORUS METABOLISM Status: Acute Priority: High Current Visit: No Onset Date: 07/14/19 Annotation/Comment:: Chronic history of intermittent hyperphosphatemia secondary to recurrent exacerbation of her diabetic nephropathy. Consider PhosLo depending on her clinical course with phosphate level normal 06/01/20 despite her recent acute renal failure as above. - Problem List Review Problem List Initiated/Reviewed/Updated: Yes - My Orders Last 24 Hours: My Active Orders 06/02/20 08:00 Furosemide [Lasix] 40 mg IVPUSH BID 06/02/20 12:00 cefTRIAXone [Rocephin] 1 gm Sodium Chloride 0.9% [Normal Saline] 100 ml IV Q24H - Assessment Assessment:: As above - Plan Plan:: As above. Extensive precautions were given to the patient, who is in agreement with the treatment plan. The patient will require about 1-2 days of inpatient/acute care secondary to multiple health problems as above.
[2020-06-02] MEDS: Carvedilol 12.5 MG Tab PO SCH (17:00)
[2020-06-02] MEDS: Calcium Carbonate 750 MG Tab.Chew PO SCH (20:07)
[2020-06-02] MEDS: atorvaSTATin 40 MG Tab PO SCH (20:07)
[2020-06-02] MEDS: Latanoprost 0.005% Ophth Soln 2.5 ML Bottle EYEBOTH SCH (20:08)
[2020-06-03] MEDS: Formoterol/Mometasone 200-5 MCG 8.8 GM Inhaler IH SCH ×2 (07:21→17:22)
[2020-06-03] MEDS: Magnesium Oxide 400 MG Tab PO SCH (07:23)
[2020-06-03] MEDS: Pantoprazole 40 MG Vial IVPUSH SCH (07:23)
[2020-06-03] MEDS: Ferrous Sulfate 325 MG Tab PO SCH ×2 (07:23→17:19)
[2020-06-03] MEDS: metroNIDAZOLE 500 MG Tab PO SCH ×3 (07:23→19:39)
[2020-06-03] MEDS: Furosemide 40 MG/4 ML VIAL IVPUSH SCH ×2 (07:23→17:20)
[2020-06-03] MEDS: Aspirin 81 MG Tab.EC PO SCH (07:23)
[2020-06-03] MEDS: Insulin Lispro 100 Units/ML 3 ML Vial SUBCUT SCH ×4 (07:24→20:00)
[2020-06-03] MEDS: Albuterol/Ipratropium 3.0-0.5 MG/3 ML Neb Soln NEB SCH ×4 (07:24→19:33)
[2020-06-03] MEDS: Carvedilol 25 MG Tab PO SCH (07:24)
[2020-06-03] MEDS: Clotrimazole 1% Crm 30 GM Tube TOP SCH ×2 (07:25→17:22)
[2020-06-03] MEDS: Sodium Chloride 0.9% 10 ML Syringe FLUSH PRN ×3 (07:25→19:35)
[2020-06-03] MEDS: Dorzolamide 2% Ophth Soln 10 ML Bottle EYEBOTH SCH ×2 (07:25→17:23)
[2020-06-03] MEDS ORDERED: Pantoprazole 40 MG Vial IVPUSH SCH (08:00)
[2020-06-03] MEDS: Ondansetron 4 MG/2 ML SDV IVPUSH PRN ×2 (08:52→19:34)
[2020-06-03] MEDS ORDERED: Sulfamethoxazole/Trimethoprim 800-160 MG Tab PO SCH (09:00)
--- NOTE | 2020-06-03 09:48 | EDM.PDOC ---
ED HPI GENERAL MEDICAL PROBLEM - General Chief Complaint: Gastrointestinal Problem Stated Complaint: nausea/vomiting Time Seen by Provider: 05/30/20 12:22 Source of Information: Reports: Patient History Limitations: Reports: No Limitations - History of Present Illness INITIAL COMMENTS - FREE TEXT/NARRATIVE: Patient comes to ER complaining of very loose stools/watery for one week approx. Today also emesis. Abdominal cramping present. No fevers. Denies acute HEENT changes/Resp changes/palpitations/blood in emesis or stool/UTI complaints/acute neuro changes. No one else in family ill. EPIGASTRIC Pain Score (Numeric/FACES): 5 - Related Data Allergies Allergy/AdvReac Type Severity Reaction Status Date / Time morphine Allergy Agitation Verified 05/30/20 12:01 Home Meds: Home Meds Albuterol/Ipratropium [DuoNeb 3.0-0.5 MG/3 ML] 3 ml NEB QID 02/21/17 [History] Latanoprost [Xalatan 0.005% Ophth Soln] 1 drop EYEBOTH BEDTIME 02/21/17 [History] atorvaSTATin Calcium [Atorvastatin Calcium] 40 mg PO BEDTIME 02/21/17 [History] Loperamide [Imodium AD] 2 mg PO Q6H PRN #0 tablet 03/01/18 [Rx] Aspirin [Lo-Dose Aspirin EC] 81 mg PO DAILY 06/26/19 [History] Brinzolamide [Azopt 1% Ophth Susp] 1 drop EYEBOTH BID 06/26/19 [History] Insulin Glarg,Human.Rec.Analog [Lantus Solostar] 10 units SUBCUT DAILY 06/26/19 [History] Insulin Glulisine [Apidra Solostar] 6 - 8 unit SUBCUT TID 06/26/19 [History] Nitroglycerin 1 tab SL ASDIRECTED PRN 06/26/19 [History] carvediloL [Carvedilol] 25 mg PO QAM 06/26/19 [History] carvediloL [Carvedilol] 12.5 mg PO QPM 12/02/19 [History] Acetaminophen [Tylenol] 650 mg PO Q4H PRN tablet 12/07/19 [Rx] Albuterol [Proair HFA] 1 gm INH Q2H PRN inhaler 12/07/19 [Rx] Bumetanide [Bumex] 2 mg PO DAILY #30 12/07/19 [Rx] Calcium Carbonate [Tums Extra Strength] 1,500 mg PO BEDTIME tab.chew 12/07/19 [Rx] Ferrous Sulfate 325 mg PO BID tablet 12/07/19 [Rx] Losartan [Cozaar] 50 mg PO BID #60 tablet 12/07/19 [Rx] Spironolactone [Aldactone] 12.5 mg PO Q12HR 12/07/19 [History] bisacodyL [Dulcolax] 10 mg RECTAL DAILY PRN supp 12/07/19 [Rx] Budesonide/Formoterol [Symbicort 160-4.5 MCG] 1 puff INH BID 06/02/20 [History] Past Medical History HEENT History: Reports: Cataract, Glaucoma, Hard of Hearing, Impaired Vision, Other (See Below) Other HEENT History: Patient wears glasses; 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. No history of diabetic retinopathy. Cardiovascular History: Reports: Arrhythmia, CAD, Cardiomyopathy, Heart Failure, Heart Murmur, High Cholesterol, Hypertension, Pulmonary Hypertension, Syncope, Other (See Below) Other Cardiovascular History: Nonischemic Cardiomyopathy with systolic/diastolic dysfunction, cardiomegaly, severe biatrial enlargement, and recurrent CHF with ejection fraction of 2530 percent and evidence of pulmonary hypertension and moderate mitral valve insufficiency by previous echocardiogram on 01/08/18, although improved ejection fraction of 45% at time of last echocardiogram on 09/05/18. Syncopal episode of unknown etiology in 2017. History of PVCs diagnosed in January 2017 and PACs in June 2019. Chronic D-dimer elevation on 02/21/17 with negative workup as below. Respiratory History: Reports: Bronchitis, Recurrent, COPD, Intubation, Previous, Pneumonia, Recurrent, Other (See Below) Other Respiratory History: O2 dependent COPD Gastrointestinal History: Reports: Cholelithiasis, Chronic Diarrhea, Gastritis, GERD, Hiatal Hernia Genitourinary History: Reports: Acute Renal Failure, Chronic Renal Insuffiency, Diabetic Nephropathy, Urinary Incontinence, UTI, Recurrent WOMEN DESIGNER History: Reports: Dysfunctional Uterine Bleeding, Fibroids, Other WOMEN DESIGNER History: Surgical menopause secondary to dysfunctional uterine bleeding. Full term without complications during pregnancies or deliveries. 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 Psychiatric History: Reports: None Other Psychiatric History: Son with alcohol abuse with secondary alcoholic cardiomyopathy, CHF, anxiety, depression, and successful suicide at age 45 with previous inpatient treatment for his addiction, etc. Endocrine/Metabolic History: Reports: Diabetes, Type II, Hypokalemia, Hypomagnesemia, IDDM, Obesity/BMI 30+, Osteopenia, Osteoporosis, Other (See Below) Other Endocrine/Metabolic History: Hypokalemia//hyperkalemia. Hypoalbuminemia. Hypocalcemia. Hematologic History: Reports: Anemia, Blood Transfusion(s), Iron Deficiency, Other (See Below) Other Hematologic History: Transfusion secondary to dysfunctional uterine bleeding in her 40s Immunologic History: Reports: None Oncologic (Cancer) History: Reports: Cervix, Other (See Below) Other Oncologic History: Incidental Cervical cancer in her 40s at time of her hysterectomy with no further treatment required Dermatologic History: Reports: Other (See Below) Other Dermatologic History: Severe onychomycosis of the feet bilaterally. - Infectious Disease History Infectious Disease History: Reports: Chicken Pox, Measles, Mumps, TB - Past Surgical History Head Surgeries/Procedures: Reports: None HEENT Surgical History: Reports: Cataract Surgery, Oral Surgery, Tonsillectomy, Other (See Below) Other HEENT Surgeries/Procedures: Bilateral cataract surgery in about 2013; Tonsillectomy at age 13 Cardiovascular Surgical History: Reports: None Respiratory Surgical History: Reports: None GI Surgical History: Reports: Appendectomy, Cholecystectomy, Colonoscopy, Other (See Below) Other GI Surgeries/Procedures: Appendectomy in 1967; colonoscopy in about 2005 with previous evaluation 1994. Laparoscopic cholecystectomy in her 30s. Female Surgical History: Reports: Hysterectomy, Salpingo-Oophorectomy Other Female Surgeries/Procedures: Complete hysterectomy including bilateral salpingo-oophorectomy in her 30s secondary to dysfunctional uterine bleeding. Endocrine Surgical History: Reports: None Neurological Surgical History: Reports: None Musculoskeletal Surgical History: Reports: Arthroscopic Procedure, Carpal Tunnel, Joint Replacement, Knee Replacement, Shoulder Surgery, Other (See Below) Other Musculoskeletal Surgeries/Procedures:: Left total knee arthroplasty in 2004; bilateral arthroscopic shoulder surgery in 2001 rather than in 1965 as per [facility] records; Left carpal tunnel release 1997. Oncologic Surgical History: Reports: None Other Oncologic Surgeries/Procedures: Incidental cervical cancer by complete hysterectomy as above with no further treatment required. Dermatological Surgical History: Reports: None - Past Imaging History Past Imaging History: Reports: Cardiac Echo (Last echocardiogram on 08/26/18 with ejection fraction of 45% with previous echocardiogram on 05/04/17 and 01/08/18 with findings as above. Additional previous echocardiogram in June 2016 per patient with ejection fraction of 30% by patient history that time.), CAT Scan (Negative CTA of the chest for PE on 05/04/17 and 02/21/17.), Mammogram (Last on 05/21/17), Stress Testing (Negative for ischemia Lexiscan Cardiolite evaluation on 04/15/17 with ejection fraction of 31% diastolically and 46% systolically.), Ultrasound (Bilateral renal ultrasounds on 08/22/18.). Denies: ROBERT Screen, Angiography, DEXA Scan, Holter Monitor, MRA, MRI, PFT, Sleep Study, Venous Doppler Social & Family History - Family History HEENT: Reports: None Cardiac: Reports: CAD, Cardiomyopathy, Heart Failure, High Cholesterol, Hypertension, MO, Other (See Below) Other Cardiac Family History: Father with fatal MO at age 67; 3 brothers with hypertension; brother with hyperlipidemia; son with alcohol-induced cardiomyopathy Respiratory: Reports: None GI: Reports: GERD, Other (See Below) Other GI Family History: GERD in brother : Reports: Diabetic Nephropathy, Dialysis, Renal Disease/Insufficiency, Other (See Below) Other Family History: Sister with diabetic nephropathy requiring dialysis OBGYN: Reports: Recurrent Spontaneous Other OBGYN Family History: Sister with recurrent SAB Musculoskeletal: Reports: None Neurological: Reports: None Psychiatric: Reports: Anxiety, Depression, Psych Hospitalization(s), Suicide Attempt, Other (See Below) Other Psychiatric Family History: Son with alcohol abuse with secondary alcoholic cardiomyopathy, CHF, anxiety, depression, and successful suicide at age 45 with previous inpatient treatment for his addiction, etc. Endocrine/Metabolic: Reports: Diabetes, type II, Other (See Below) Other Endocrine/Metabolic Family History: Sister with AODM with complications as above Hematologic: Reports: None Immunologic: Reports: None Dermatologic: Reports: None Oncologic: Reports: Other (See Below) Other Oncologic Family History: Brothers 2 with unknown type of fatal cancer - Tobacco Use Tobacco Use Status *Q: Never Tobacco User - Caffeine Use Caffeine Use: Reports: Soda, Tea - Recreational Drug Use Recreational Drug Use: No - Living Situation & Occupation Living situation: Reports: (2016, 4 children), with Family (2 sons and [id number]) Occupation: Retired ([employer], retired at age 69) ED ROS GENERAL - Review of Systems Review Of Systems: Comprehensive ROS is negative, except as noted in HPI. ED EXAM, GENERAL - Physical Exam Exam: See Below Exam Limited By: No Limitations General Appearance: Alert, Mild Distress, Obese Eye Exam: Bilateral Eye: EOMI, PERRL Ears: Hearing Grossly Normal Nose: No: Nasal Deformity, Nasal Swelling, Nasal Drainage Throat/Mouth: Normal Lips, Normal Voice, No Airway Compromise Head: Atraumatic, Normocephalic Neck: Normal Inspection, Supple, Non-Tender, Full Range of Motion Respiratory/Chest: No Respiratory Distress, Lungs Clear, Normal Breath Sounds, No Accessory Muscle Use, Chest Non-Tender Cardiovascular: Regular Rate, Rhythm, No JVD, No Murmur Peripheral Pulses: 2+: Radial (L), Radial (R), Dorsalis Pedis (L), Dorsalis Pedis (R) GI/Abdominal: Normal Bowel Sounds, Soft, No Distention, Tender (diffuse/nonfocal) (Female) Exam: Deferred Rectal (Female) Exam: Deferred Back Exam: No: CVA Tenderness (L), Muscle Spasm, Paraspinal Tenderness, Vertebral Tenderness Extremities: Normal Range of Motion, Non-Tender, Normal Capillary Refill, Pedal Edema. No: Increased Warmth, Mottled, Pallor, Redness Neurological: Alert, Oriented, CN II-XII Intact, Normal Cognition, No Motor/Sensory Deficits Psychiatric: Normal Affect, Normal Mood Skin Exam: Warm, Dry, Intact, Normal Color Course - Vital Signs Last Recorded V/S: Last Vital Signs Temp 36.6 C 06/02/20 19:50 Pulse 91 06/03/20 07:24 Resp 18 06/02/20 19:50 BP 120/79 06/03/20 07:24 Pulse Ox 98 06/02/20 14:00 - Orders/Labs/Meds Orders: Medication Orders Acetaminophen (Acetaminophen 325 Mg Tab) 650 mg PO Q4H PRN PRN Reason: analgesia/fever Last Admin: 06/01/20 08:56 Dose: 650 mg Documented by: Admin: 05/31/20 03:49 Dose: 650 mg Documented by: PEDRO Albuterol (Proventil Hfa) 0 gm INH Q2H PRN PRN Reason: Shortness of Breath Last Admin: 06/02/20 21:09 Dose: 1 puff Documented by: JIMENA Albuterol/Ipratropium (Albuterol/Ipratropium 3.0-0.5 Mg/3 Ml Neb Soln) 3 ml NEB QIDRT [facility] Last Admin: 06/03/20 07:24 Dose: 3 ml Documented by: Admin: 06/02/20 20:07 Dose: 3 ml Documented by: Admin: 06/02/20 15:11 Dose: 3 ml Documented by: Admin: 06/02/20 11:27 Dose: 3 ml Documented by: Admin: 06/02/20 08:23 Dose: 3 ml Documented by: Admin: 06/01/20 21:19 Dose: 3 ml Documented by: Admin: 06/01/20 17:01 Dose: 3 ml Documented by: Admin: 06/01/20 11:58 Dose: 3 ml Documented by: Admin: 06/01/20 08:06 Dose: 3 ml Documented by: Admin: 05/31/20 19:27 Dose: 3 ml Documented by: Admin: 05/31/20 15:07 Dose: 3 ml Documented by: Admin: 05/31/20 11:13 Dose: 3 ml Documented by: Admin: 05/31/20 08:33 Dose: 3 ml Documented by: Admin: 05/30/20 19:22 Dose: 3 ml Documented by: Admin: 05/30/20 16:29 Dose: 3 ml Documented by: ROSANNA Aspirin (Aspirin 81 Mg Tab.Ec) 81 mg PO DAILY [facility] Last Admin: 06/03/20 07:23 Dose: 81 mg Documented by: Admin: 06/02/20 08:23 Dose: 81 mg Documented by: Admin: 06/01/20 08:05 Dose: 81 mg Documented by: Admin: 05/31/20 08:31 Dose: 81 mg Documented by: ANGELES Atorvastatin Calcium (Lipitor) 40 mg PO BEDTIME [facility] Last Admin: 06/02/20 20:07 Dose: 40 mg Documented by: Admin: 06/01/20 21:18 Dose: 40 mg Documented by: Admin: 05/31/20 19:27 Dose: 40 mg Documented by: Admin: 05/30/20 19:22 Dose: 40 mg Documented by: BROCK Bisacodyl (Dulcolax) 10 mg RECTAL DAILY PRN PRN Reason: Constipation Calcium Carbonate/Glycine (Tums Extra Strength) 1,500 mg PO BEDTIME [facility] Last Admin: 06/02/20 20:07 Dose: 1,500 mg Documented by: Admin: 06/01/20 21:18 Dose: 1,500 mg Documented by: Admin: 05/31/20 19:27 Dose: 1,500 mg Documented by: BROCK Carvedilol (Carvedilol 12.5 Mg Tab) 12.5 mg PO QPM [facility] Last Admin: 06/02/20 17:00 Dose: 12.5 mg Documented by: Admin: 06/01/20 17:03 Dose: 12.5 mg Documented by: Admin: 05/31/20 17:20 Dose: 12.5 mg Documented by: Admin: 05/30/20 18:01 Dose: 12.5 mg Documented by: ROSANNA Carvedilol (Carvedilol 25 Mg Tab) 25 mg PO QAM [facility] Last Admin: 06/03/20 07:24 Dose: 25 mg Documented by: Admin: 06/02/20 07:27 Dose: 25 mg Documented by: Admin: 06/01/20 08:05 Dose: 25 mg Documented by: Admin: 05/31/20 08:32 Dose: 25 mg Documented by: ANGELES Clotrimazole (Lotrimin Af 1% Crm) 1 gm TOP BID [facility] Last Admin: 06/03/20 07:25 Dose: 1 applic Documented by: Admin: 06/02/20 17:05 Dose: 1 applic Documented by: Admin: 06/02/20 07:28 Dose: 1 applic Documented by: Admin: 06/01/20 17:01 Dose: 1 applic Documented by: Admin: 06/01/20 08:06 Dose: 1 applic Documented by: Admin: 05/31/20 17:21 Dose: 1 applic Documented by: Admin: 05/31/20 11:11 Dose: 1 applic Documented by: GLORIA Dextrose/Water (Dextrose 50% In Water) 50 ml IV ASDIRECTED PRN PRN Reason: Hypoglycemia Dextrose/Water (Dextrose 50% In Water) 50 ml IV ASDIRECTED PRN PRN Reason: Hypoglycemia Dorzolamide HCl (Trusopt 2% Ophth Soln) 0 ml EYEBOTH BID [facility] Last Admin: 06/03/20 07:25 Dose: 1 drop Documented by: Admin: 06/02/20 17:06 Dose: 1 drop Documented by: Admin: 06/02/20 08:23 Dose: 1 drop Documented by: Admin: 06/01/20 17:04 Dose: 1 drop Documented by: Admin: 06/01/20 08:06 Dose: 1 drop Documented by: Admin: 05/31/20 17:22 Dose: 1 drop Documented by: Admin: 05/31/20 08:33 Dose: 1 drop Documented by: Admin: 05/30/20 18:02 Dose: 1 drop Documented by: ROSANNA Enoxaparin Sodium (Enoxaparin 30 Mg/0.3 Ml Syringe) 30 mg SUBCUT Q24H [facility] Last Admin: 06/02/20 15:11 Dose: 30 mg Documented by: Admin: 06/01/20 13:47 Dose: 30 mg Documented by: Admin: 05/31/20 15:07 Dose: 30 mg Documented by: Admin: 05/30/20 14:51 Dose: 30 mg Documented by: ROSANNA Ferrous Sulfate (Ferrous Sulfate 325 Mg Tab) 325 mg PO BID [facility] Last Admin: 06/03/20 07:23 Dose: 325 mg Documented by: Admin: 06/02/20 17:04 Dose: 325 mg Documented by: Admin: 06/02/20 07:27 Dose: 325 mg Documented by: Admin: 06/01/20 17:03 Dose: 325 mg Documented by: Admin: 06/01/20 08:06 Dose: 325 mg Documented by: Admin: 05/31/20 17:20 Dose: 325 mg Documented by: Admin: 05/31/20 12:06 Dose: 325 mg Documented by: ANGELES Furosemide (Furosemide 40 Mg/4 Ml Vial) 40 mg IVPUSH Q8H [facility] Last Admin: 06/01/20 21:19 Dose: 40 mg Documented by: Admin: 06/01/20 11:59 Dose: 40 mg Documented by: Admin: 06/01/20 08:35 Dose: Not Given Documented by: Admin: 05/31/20 19:27 Dose: 40 mg Documented by: Admin: 05/31/20 12:07 Dose: 40 mg Documented by: ANGELES Glucagon (Glucagen) 1 mg IM ASDIRECTED PRN PRN Reason: Hypoglycemia Ceftriaxone Sodium 1 gm/ (Sodium Chloride) 100 mls @ 200 mls/hr IV Q24H [facility] Last Admin: 06/01/20 11:59 Dose: 200 mls/hr Documented by: Admin: 05/31/20 12:06 Dose: 200 mls/hr Documented by: ANGELES Insulin Human Lispro (Humalog) 0 unit SUBCUT QIDACANDBED [facility]; Protocol Last Admin: 06/03/20 07:24 Dose: Not Given Documented by: Admin: 06/02/20 21:05 Dose: Not Given Documented by: Admin: 06/02/20 16:59 Dose: Not Given Documented by: Admin: 06/02/20 11:41 Dose: 2 unit Documented by: Admin: 06/02/20 07:36 Dose: Not Given Documented by: Admin: 06/01/20 21:20 Dose: Not Given Documented by: Admin: 06/01/20 17:07 Dose: Not Given Documented by: Admin: 06/01/20 11:58 Dose: Not Given Documented by: Admin: 06/01/20 08:05 Dose: Not Given Documented by: Admin: 05/31/20 20:07 Dose: Not Given Documented by: Admin: 05/31/20 17:20 Dose: Not Given Documented by: Admin: 05/31/20 12:07 Dose: Not Given Documented by: ANGELES Latanoprost (Xalatan 0.005% Ophth Soln) 0 ml EYEBOTH BEDTIME [facility] Last Admin: 06/02/20 20:08 Dose: 1 drop Documented by: Admin: 06/01/20 21:18 Dose: 1 drop Documented by: Admin: 05/31/20 19:27 Dose: 1 drop Documented by: Admin: 05/30/20 19:22 Dose: 1 drop Documented by: BROCK Loperamide HCl (Imodium Ad) 2 mg PO Q6H PRN PRN Reason: Diarrhea Magnesium Oxide (Magnesium Oxide 400 Mg Tab) 400 mg PO DAILY [facility] Last Admin: 06/03/20 07:23 Dose: 400 mg Documented by: Admin: 06/02/20 07:27 Dose: 400 mg Documented by: Admin: 06/01/20 13:47 Dose: 400 mg Documented by: AMADO Metronidazole (Metronidazole 500 Mg Tab) 500 mg PO Q8H [facility] Last Admin: 06/01/20 21:18 Dose: 500 mg Documented by: Admin: 06/01/20 13:47 Dose: 500 mg Documented by: AMADO Nitroglycerin (Nitrostat) 0.4 mg SL ASDIRECTED PRN PRN Reason: Chest Pain Ondansetron HCl (Zofran) 4 mg IVPUSH Q6H PRN PRN Reason: Nausea/Vomiting Last Admin: 06/03/20 08:52 Dose: 4 mg Documented by: RON Pantoprazole Sodium (Pantoprazole 40 Mg Vial) 40 mg IVPUSH Q12H [facility] Last Admin: 06/02/20 11:28 Dose: 40 mg Documented by: Admin: 06/01/20 23:53 Dose: 40 mg Documented by: Admin: 06/01/20 11:59 Dose: 40 mg Documented by: Admin: 05/31/20 23:30 Dose: 40 mg Documented by: Admin: 05/31/20 12:06 Dose: 40 mg Documented by: ANGELES Sodium Chloride (Saline Flush) 10 ml FLUSH ASDIRECTED PRN PRN Reason: Keep Vein Open Last Admin: 06/03/20 08:52 Dose: 10 ml Documented by: Admin: 06/03/20 07:25 Dose: 10 ml Documented by: Admin: 06/02/20 17:07 Dose: 10 ml Documented by: Admin: 06/02/20 11:29 Dose: 10 ml Documented by: Admin: 06/02/20 07:29 Dose: 10 ml Documented by: Admin: 06/01/20 23:53 Dose: 10 ml Documented by: Admin: 06/01/20 12:12 Dose: 10 ml Documented by: Admin: 06/01/20 11:59 Dose: 10 ml Documented by: Admin: 05/30/20 14:46 Dose: 10 ml Documented by: ROSANNA Labs: Laboratory Tests 05/30/20 05/30/20 05/30/20 Range/Units 12:35 12:35 12:35 WBC 8.0 (4.0-10.2) K/uL RBC 4.04 (3.77-5.09) M/uL Hgb 12.4 D (11.7-15.5) g/dL Hct 38.8 (34.0-46.0) % MCV 96.0 (84.0-98.0) fL MCH 30.7 (28.2-33.3) pg MCHC 32.0 (31.7-36.0) g/dL RDW 13.0 (11.2-14.1) % Plt Count 155 (150-350) K/uL Neut % (Auto) 74.9 (45.0-80.0) % Lymph % (Auto) 17.9 (10.0-50.0) % [place] % (Auto) 4.3 (2.0-14.0) % Eos % (Auto) 2.4 (0.0-5.0) % Baso % (Auto) 0.5 (0.0-2.0) % Neut # (Auto) 5.97 (1.40-7.00) K/uL Lymph # (Auto) 1.43 (0.50-3.50) K/uL [place] # (Auto) 0.34 (0.00-1.00) K/uL Eos # (Auto) 0.19 (0.00-0.50) K/uL Baso # (Auto) 0.04 (0.00-0.20) K/uL Sodium (136-145) mmol/L Potassium (3.5-5.1) mmol/L Chloride (98-107) mmol/L Carbon Dioxide (21.0-32.0) mmol/L BUN (7-18) mg/dL Creatinine (0.51-1.17) mg/dL Est Cr Clr Drug Dosing mL/min Estimated GFR (MDRD) mL/min Glucose (70-99) mg/dL Lactic Acid 1.0 (0.4-2.0) mmol/L Calcium (8.5-10.1) mg/dL Magnesium 2.0 (1.8-2.4) mg/dL Total Bilirubin (0.2-1.0) mg/dL AST (15-37) U/L ALT (12-78) U/L Alkaline Phosphatase (46-116) IU/L Total Protein (6.4-8.2) g/dL Albumin (3.4-5.0) g/dL 05/30/20 Range/Units 12:35 WBC (4.0-10.2) K/uL RBC (3.77-5.09) M/uL Hgb (11.7-15.5) g/dL Hct (34.0-46.0) % MCV (84.0-98.0) fL MCH (28.2-33.3) pg MCHC (31.7-36.0) g/dL RDW (11.2-14.1) % Plt Count (150-350) K/uL Neut % (Auto) (45.0-80.0) % Lymph % (Auto) (10.0-50.0) % [place] % (Auto) (2.0-14.0) % Eos % (Auto) (0.0-5.0) % Baso % (Auto) (0.0-2.0) % Neut # (Auto) (1.40-7.00) K/uL Lymph # (Auto) (0.50-3.50) K/uL [place] # (Auto) (0.00-1.00) K/uL Eos # (Auto) (0.00-0.50) K/uL Baso # (Auto) (0.00-0.20) K/uL Sodium 138 (136-145) mmol/L Potassium 7.4 H* D (3.5-5.1) mmol/L Chloride 106 (98-107) mmol/L Carbon Dioxide 19.9 L (21.0-32.0) mmol/L BUN 123 H* D (7-18) mg/dL Creatinine 3.58 H* D (0.51-1.17) mg/dL Est Cr Clr Drug Dosing 9.34 mL/min Estimated GFR (MDRD) 12 mL/min Glucose 178 H (70-99) mg/dL Lactic Acid (0.4-2.0) mmol/L Calcium 8.6 (8.5-10.1) mg/dL Magnesium (1.8-2.4) mg/dL Total Bilirubin 0.5 (0.2-1.0) mg/dL AST 21 (15-37) U/L ALT 22 (12-78) U/L Alkaline Phosphatase 103 (46-116) IU/L Total Protein 8.1 (6.4-8.2) g/dL Albumin 3.7 (3.4-5.0) g/dL Meds: Medications Generic Name Dose Route Start Last Admin Trade Name Freq PRN Reason Stop Dose Admin Acetaminophen 650 mg 05/30/20 13:58 06/01/20 08:56 Acetaminophen 325 Mg Tab PO 650 mg Q4H PRN Administration analgesia/fever Albuterol 0 gm 05/30/20 13:58 06/02/20 21:09 Proventil Hfa INH 1 puff Q2H PRN Administration Shortness of Breath Albuterol/Ipratropium 3 ml 05/30/20 16:00 06/03/20 07:24 Albuterol/Ipratropium 3.0-0.5 Mg/3 Ml Neb Soln NEB 3 ml QIDRT [facility] Administration Aspirin 81 mg 05/31/20 08:00 06/03/20 07:23 Aspirin 81 Mg Tab.Ec PO 81 mg DAILY [facility] Administration Atorvastatin Calcium 40 mg 05/30/20 20:00 06/02/20 20:07 Lipitor PO 40 mg BEDTIME [facility] Administration Bisacodyl 10 mg 05/31/20 11:12 Dulcolax RECTAL DAILY PRN Constipation Calcium Carbonate/Glycine 1,500 mg 05/31/20 20:00 06/02/20 20:07 Tums Extra Strength PO 1,500 mg BEDTIME [facility] Administration Carvedilol 12.5 mg 05/30/20 18:00 06/02/20 17:00 Carvedilol 12.5 Mg Tab PO 12.5 mg QPM [facility] Administration Carvedilol 25 mg 05/31/20 08:00 06/03/20 07:24 Carvedilol 25 Mg Tab PO 25 mg QAM [facility] Administration Clotrimazole 1 gm 05/31/20 10:00 06/03/20 07:25 Lotrimin Af 1% Crm TOP 1 applic BID [facility] Administration Dextrose/Water 50 ml 05/30/20 14:08 Dextrose 50% In Water IV ASDIRECTED PRN Hypoglycemia Dextrose/Water 50 ml 05/30/20 14:25 Dextrose 50% In Water IV ASDIRECTED PRN Hypoglycemia Dorzolamide HCl 0 ml 05/30/20 18:00 06/03/20 07:25 Trusopt 2% Ophth Soln EYEBOTH 1 drop BID [facility] Administration Enoxaparin Sodium 30 mg 05/30/20 14:00 06/02/20 15:11 Enoxaparin 30 Mg/0.3 Ml Syringe SUBCUT 30 mg Q24H [facility] Administration Ferrous Sulfate 325 mg 05/31/20 11:15 06/03/20 07:23 Ferrous Sulfate 325 Mg Tab PO 325 mg BID [facility] Administration Furosemide 40 mg 05/31/20 12:00 06/01/20 21:19 Furosemide 40 Mg/4 Ml Vial IVPUSH 40 mg Q8H [facility] Administration Glucagon 1 mg 05/30/20 14:08 Glucagen IM ASDIRECTED PRN Hypoglycemia Ceftriaxone Sodium 1 gm/ 100 mls @ 200 mls/hr 05/31/20 12:00 06/01/20 11:59 Sodium Chloride IV 200 mls/hr Q24H [facility] Administration Insulin Human Lispro 0 unit 05/31/20 11:30 06/03/20 07:24 Humalog SUBCUT Not Given QIDACANDBED [facility] Protocol Latanoprost 0 ml 05/30/20 20:00 06/02/20 20:08 Xalatan 0.005% Ophth Soln EYEBOTH 1 drop BEDTIME [facility] Administration Loperamide HCl 2 mg 05/31/20 15:00 Imodium Ad PO Q6H PRN Diarrhea Magnesium Oxide 400 mg 06/01/20 13:00 06/03/20 07:23 Magnesium Oxide 400 Mg Tab PO 400 mg DAILY [facility] Administration Metronidazole 500 mg 06/01/20 13:00 06/01/20 21:18 Metronidazole 500 Mg Tab PO 500 mg Q8H [facility] Administration Nitroglycerin 0.4 mg 05/30/20 13:58 Nitrostat SL ASDIRECTED PRN Chest Pain Ondansetron HCl 4 mg 05/30/20 13:37 06/03/20 08:52 Zofran IVPUSH 4 mg Q6H PRN Administration Nausea/Vomiting Pantoprazole Sodium 40 mg 05/31/20 12:00 06/02/20 11:28 Pantoprazole 40 Mg Vial IVPUSH 40 mg Q12H CHRISS Administration Sodium Chloride 10 ml 05/30/20 12:22 06/03/20 08:52 Saline Flush FLUSH 10 ml ASDIRECTED PRN Administration Keep Vein Open Discontinued Medications Generic Name Dose Route Start Last Admin Trade Name Freq PRN Reason Stop Dose Admin Bumetanide 2 mg 06/01/20 08:00 Bumex PO DAILY [facility] Dextrose/Water 50 ml 05/30/20 14:17 05/30/20 14:47 Dextrose 50% In Water IVPUSH 05/30/20 14:18 50 ml ONETIME ONE Administration Glucagon 1 mg 05/30/20 14:25 Glucagen IM ASDIRECTED PRN Hypoglycemia Sodium Chloride 1,000 mls @ 125 mls/hr 05/30/20 12:30 05/30/20 12:43 Normal Saline IV 125 mls/hr ASDIRECTED CHRISS Administration Sodium Chloride 1,000 mls @ 500 mls/hr 05/30/20 13:41 05/30/20 14:00 Normal Saline IV 05/30/20 15:40 500 mls/hr .BOLUS ONE Administration Sodium Chloride 1,000 mls @ 40 mls/hr 05/30/20 21:45 05/31/20 08:37 Normal Saline IV 40 mls/hr ASDIRECTED CHRISS Administration Insulin Human Regular 0 unit 05/30/20 17:30 05/31/20 08:33 Humulin R SUBCUT Not Given BIDAC [facility] Protocol Insulin Human Regular 10 unit 05/30/20 14:25 05/30/20 14:43 Humulin R IV 05/30/20 14:26 10 units ONETIME ONE Administration Losartan Potassium 50 mg 05/30/20 18:00 05/31/20 08:31 Cozaar PO 50 mg BID [facility] Administration Ondansetron HCl 4 mg 05/30/20 12:24 05/30/20 12:38 Zofran IVPUSH 05/30/20 12:25 4 mg ONETIME ONE Administration Prochlorperazine Edisylate 5 mg 05/30/20 13:55 05/30/20 14:24 Compazine IVPUSH 05/30/20 13:56 5 mg ONETIME ONE Administration Sodium Polystyrene Sulfonate 45 gm 05/30/20 13:42 05/30/20 14:02 Kayexalate PO 05/30/20 13:43 Not Given NOW ONE Sodium Polystyrene Sulfonate 15 gm 05/30/20 13:55 05/30/20 14:24 Kayexalate PO 05/30/20 13:56 15 gm ONETIME ONE Administration Sodium Polystyrene Sulfonate 15 gm 05/30/20 19:00 05/30/20 19:22 Kayexalate PO 05/30/20 19:01 15 gm ONETIME ONE Administration Sodium Polystyrene Sulfonate 15 gm 05/31/20 08:00 05/31/20 08:30 Kayexalate PO 05/31/20 08:01 15 gm ONETIME ONE Administration Spironolactone 12.5 mg 06/01/20 20:00 Aldactone PO Q12HR [facility] - Re-Assessments/Exams Free Text/Narrative Re-Assessment/Exam: 06/03/20 09:51 Patient noted to have acute elevation in Bun/Cr. History of chronic renal insufficiency. Also potassium of 7.4 Normal lactic acid. Patient unable to void for UA while in ER. EKG showed no acute significant changes. Abdominal films showed no evidence of obstruction. Patient refusing transfer to [place]. Will admit for further treatment. Departure - Departure Time of Disposition: 13:00 Disposition: Admitted As Inpatient 66 Condition: Fair Clinical Impression: Hyperkalemia, Vomiting and diarrhea, Dehydration Acute renal failure Qualifiers: Acute renal failure type: unspecified Qualified Code(s): N17.9 - Acute kidney failure, unspecified - Discharge Information *PRESCRIPTION DRUG MONITORING PROGRAM REVIEWED*: Not Applicable *COPY OF PRESCRIPTION DRUG MONITORING REPORT IN PATIENT MONSERRAT: Not Applicable Sepsis Event Note (ED) - Evaluation Sepsis Screening Result: No Definite Risk - Problem List & Annotations (1) C. difficile colitis SNOMED Code(s): 950125217 Code(s): A04.72 - ENTEROCOLITIS D/T CLOSTRIDIUM DIFFICILE, NOT SPCF RECUR Status: Acute Priority: High Current Visit: Yes Onset Date: ~05/30/20 Annotation/Comment:: Receiving Flagyl. Loose stools have resolved. (2) Diarrhea SNOMED Code(s): 28922908 Code(s): R19.7 - DIARRHEA, UNSPECIFIED Status: Acute Priority: High Current Visit: Yes Onset Date: ~05/30/20 Annotation/Comment:: + for C-diff. Stool C&S pending. Loose stools have resolved. On Flagyl. Qualifiers: Diarrhea type: unspecified type Qualified Code(s): R19.7 - Diarrhea, unspecified (3) Hyperkalemia SNOMED Code(s): 60916153 Code(s): E87.5 - HYPERKALEMIA Status: Acute Priority: High Current Visit: Yes Annotation/Comment:: Significant elevation of potassium noted during ER evaluation. Suspect secondary to acute renal failure due to dehydration/loose stools. Much improved after hydration/kayexalate (4) Tinea cruris SNOMED Code(s): 582130805 Code(s): B35.6 - TINEA CRURIS Status: Acute Priority: Medium Current Visit: Yes Onset Date: ~05/31/20 Annotation/Comment:: Lotrimin AF started on 05/31. (5) UTI (urinary tract infection) SNOMED Code(s): 37457242 Code(s): N39.0 - URINARY TRACT INFECTION, SITE NOT SPECIFIED Status: Acute Priority: High Current Visit: Yes Onset Date: ~12/03/19 Annotation/Comment:: On Rocephin. Initial clean-catch UA was positive on admission, however note concomitant diarrhea with urine specimen not set up for culture and sensitivity. Quick cath UA was collected on 05/31 with persistent positive UTI and IV Rocephin initiated. Urine culture is pending with this spec imen. Patient has a long history of recurrent UTIs. Qualifiers: Urinary tract infection type: acute cystitis Hematuria presence: without hematuria Qualified Code(s): N30.00 - Acute cystitis without hematuria (6) Anemia SNOMED Code(s): 731303793 Code(s): D64.9 - ANEMIA, UNSPECIFIED Status: Chronic Priority: Medium Current Visit: Yes Onset Date: 02/27/18 Annotation/Comment:: Hemoglobin stable on 06/01/2028. Note significant progression of her anemia since admission likely secondary to rehydration effect with hemoglobin of 9.8 on 05/31 in comparison to 12.4 on admission. Long history of iron deficiency anemia with iron supplement reinitiated on 05/31. Continue to observe closely during this hospitalization. No evidence of acute GI bleed, however IV Protonix was initiated on 05/31. Further work-up depending on her clinical course. Note chronic renal insufficiency. Qualifiers: Anemia type: iron deficiency (7) CHF (congestive heart failure) SNOMED Code(s): 93593397 Code(s): I50.9 - HEART FAILURE, UNSPECIFIED Status: Chronic Priority: High Current Visit: Yes Onset Date: 02/21/17 Annotation/Comment:: No chest pain or anginal type symptoms either prior to admission and/or during this hospitalization. EKG showed complete bifascicular bundle branch block on admission with history of PACs, PVCs, and previous SVT. Note known history of cardiomegaly with echocardiogram last performed on 08/26/18 with an ejection fraction of 45% at that time and history of pulmonary hypertension. Consider repeat echocardiogram once her medical therapy has been determined on an outpatient basis. No previous problems with intolerance to MONICA inhibitor's and spironolactone with secondary hyperkalemia. Medication compliance has also been an issue in the past. Secondary to her hyperkalemia her previous Bumex therapy will be changed to IV Lasix with patient initially hydrated secondary to her renal failure and significant diarrhea on admission. She is eating well at this time with IV fluids discontinued on 05/31. Her previous losartan and spironolactone therapy were discontinued on 05/31 secondary to her significant hyperkalemia on admission with patient previously extremely sensitive to these medications secondary to her renal disease. Qualifiers: Heart failure chronicity: acute on chronic (8) COPD (chronic obstructive pulmonary disease) SNOMED Code(s): 20318320 Code(s): J44.9 - CHRONIC OBSTRUCTIVE PULMONARY DISEASE, UNSPECIFIED Status: Chronic Priority: Medium Current Visit: Yes Annotation/Comment:: No recent fever or bronchitic type symptoms. Continue nebulizer and inhaler therapy as before. Qualifiers: COPD type: emphysema Emphysema type: panlobular Qualified Code(s): J43.1 - Panlobular emphysema (9) Diabetes mellitus SNOMED Code(s): 32732945 Code(s): E11.9 - TYPE 2 DIABETES MELLITUS WITHOUT COMPLICATIONS Status: Chronic Priority: Medium Current Visit: Yes Annotation/Comment:: IV human regular insulin given secondary to her hyperkalemia as above. Patient was changed to a 4 times daily Humalog subcu sliding scale on 05/31 with significantly improved Accu-Cheks at this time. Note diabetic nephropathy, diabetic neuropathy, etc.. Glycosylated hemoglobin 5.0% on 06/01/2020. Qualifiers: Diabetes mellitus type: type 2 Diabetes mellitus manager intermediate insulin use: with manager intermediate use Diabetes mellitus complication status: with kidney complications Diabetes mellitus complication detail: with chronic kidney disease Chronic kidney disease stage: stage 4 (severe) Qualified Code(s): E11.22 - Type 2 diabetes mellitus with diabetic chronic kidney disease; N18.4 - Chronic kidney disease, stage 4 (severe); Z79.4 - FDC (current) use of insulin (10) Diabetic nephropathy Status: Chronic Priority: High Current Visit: Yes Annotation/Comment:: Renal function significantly improved on 06/01 after discontinuation of multiple nephrotoxic medications on 05/31 as below. Acute renal failures/exacerbation of her chronic diabetic nephropathy with significant hyperkalemia likely secondary to her medical therapy as below, including spironolactone and losartan. Lactulose was initiated by on-call physician. Initially patient stated that she did not wish to be transferred to [place] and does not wish to consider dialysis, which has been discussed in the past by her previous physicians. The patient is reconsidering this at this time, although secondary to improved renal function on 06/01 this is likely not needed at this time. Continue aggressive care as below with consideration of patient transfer for nephrology consultation or on an outpatient basis. The patient will likely need long-term correction placement, if dialysis therapy is initiated. Qualifiers: Diabetes mellitus type: type 2 Qualified Code(s): E11.21 - Type 2 diabetes mellitus with diabetic nephropathy (11) Hypertension SNOMED Code(s): 51485597 Code(s): I10 - ESSENTIAL (PRIMARY) HYPERTENSION Status: Chronic Priority: Medium Current Visit: Yes Annotation/Comment:: Stable during this hospitalization. Qualifiers: Hypertension type: essential hypertension Qualified Code(s): I10 - Essential (primary) hypertension (12) Hypocalcemia SNOMED Code(s): 8872548 Code(s): E83.51 - HYPOCALCEMIA Status: Chronic Priority: Medium Current Visit: Yes Onset Date: 03/01/18 Annotation/Comment:: Resumed OTC Tums as calcium supplementation and GI prophylaxis on 06/01/2019. Continue to observe closely. (13) Need for comfort care SNOMED Code(s): 021245941, 447492551 Code(s): YQA4558 - Status: Chronic Priority: Medium Current Visit: Yes Annotation/Comment:: Patient requesting comfort care on admission as above. Long-term prognosis poor secondary to patient's recurrent renal failure/diabetic nephropathy and multiple healthcare issues as above. She is now considering possible hospital transfer as above. (14) Osteoarthritis SNOMED Code(s): 661976294 Code(s): M19.90 - UNSPECIFIED OSTEOARTHRITIS, UNSPECIFIED SITE Status: Chronic Priority: High Current Visit: Yes Annotation/Comment:: Stable by history. Qualifiers: Osteoarthritis location: multiple joints Osteoarthritis type: primary Qualified Code(s): M89.49 - Other hypertrophic osteoarthropathy, multiple sites (15) Peptic reflux disease SNOMED Code(s): 083529307 Code(s): K21.9 - GASTRO-ESOPHAGEAL REFLUX DISEASE WITHOUT ESOPHAGITIS Status: Chronic Priority: Medium Current Visit: Yes Annotation/Comment:: Stable by history. IV Protonix initiated on 05/31 as above (16) Hyperphosphatemia SNOMED Code(s): 67765935 Code(s): E83.39 - OTHER DISORDERS OF PHOSPHORUS METABOLISM Status: Acute Priority: High Current Visit: No Onset Date: 07/14/19 Annotation/Comment:: Chronic history of intermittent hyperphosphatemia secondary to recurrent exacerbation of her diabetic nephropathy. Consider PhosLo depending on her clinical course with phosphate level normal 06/01/20 despite her recent acute renal failure as above. - Assessment/Plan Admission H&P: Please use this note as an admission H&P Assessment:: as above. Note that problem list updated on 06/02/20 as original ER note was lost by computer system. At time of admission anticipated patient would stay 4 days/possibly more given the severity of kidney issues/hyperkalemia and her multiple other chronic medical conditions. Plan: see above
--- NOTE | 2020-06-03 10:54 | PCM.PN ---
- General Info Date of Service: 06/03/20 Admission Dx/Problem (Free Text): 1. Acute renal failure with history of chronic renal insufficiency 2. Hyperkalemia 3. CHF 4. Diabetes mellitus 5. C-Diff with secondary dehydration Subjective Update: Patient has had several formed bowel movements last 24 hours. Complains of nausea this morning. Functional Status: Reports: Pain Controlled, Tolerating Diet, Ambulating, Urinating. Denies: New Symptoms - Review of Systems General: Reports: No Symptoms HEENT: Denies: Dysphasia, Eye Pain, Sinus Congestion, Sore Throat, Visual Changes Pulmonary: Reports: Cough (chronic/COPD). Denies: Pleuritic Chest Pain, Sputum, Hemoptysis, Wheezing Cardiovascular: Reports: Edema (chronic). Denies: Chest Pain, Palpitations, Orthopnea, PND, Lightheadedness Gastrointestinal: Reports: Nausea, Vomiting. Denies: Abdominal Pain, Constipation, Decreased Appetite, Diarrhea, Difficulty Swallowing, Hematochezia, Melena Genitourinary: Reports: No Symptoms Musculoskeletal: Reports: Other (no acute changes from baseline) Skin: Reports: No Symptoms Neurological: Reports: No Symptoms Psychiatric: Reports: No Symptoms - Patient Data Vitals - Most Recent: Last Vital Signs Temp 37.2 C 06/03/20 08:00 Pulse 91 06/03/20 08:00 Resp 16 06/03/20 08:00 BP 120/79 06/03/20 08:00 Pulse Ox 95 06/03/20 08:00 Weight - Most Recent: 76.022 kg I&O - Last 24 Hours: Intake & Output 06/02/20 06/03/20 06/03/20 22:59 06:59 14:59 Output Total 200 Balance -200 Lab Results Last 24 Hours: Laboratory Results - last 24 hr 06/02/20 06/02/20 06/02/20 Range/Units 11:25 16:58 21:03 POC Glucose 159 H 101 131 H (65-110) mg/dl 06/03/20 Range/Units 07:20 POC Glucose 101 (65-110) mg/dl Pool Results Last 24 Hours: Microbiology 05/31/20 10:02 Urine Culture - Final Urine, Quick Cath (In-Out) (Mrsa) Staphylococcus Aureus 05/30/20 17:00 Stool Aerobic Culture - Preliminary Stool / Feces Med Orders - Current: Current Medications Acetaminophen (Acetaminophen 325 Mg Tab) 650 mg PO Q4H PRN PRN Reason: analgesia/fever Last Admin: 06/01/20 08:56 Dose: 650 mg Documented by: Albuterol (Proventil Hfa) 0 gm INH Q2H PRN PRN Reason: Shortness of Breath Last Admin: 06/02/20 21:09 Dose: 1 puff Documented by: Albuterol/Ipratropium (Albuterol/Ipratropium 3.0-0.5 Mg/3 Ml Neb Soln) 3 ml NEB QIDRT [facility] Last Admin: 06/03/20 07:24 Dose: 3 ml Documented by: Aspirin (Aspirin 81 Mg Tab.Ec) 81 mg PO DAILY [facility] Last Admin: 06/03/20 07:23 Dose: 81 mg Documented by: Atorvastatin Calcium (Lipitor) 40 mg PO BEDTIME [facility] Last Admin: 06/02/20 20:07 Dose: 40 mg Documented by: Bisacodyl (Dulcolax) 10 mg RECTAL DAILY PRN PRN Reason: Constipation Calcium Carbonate/Glycine (Tums Extra Strength) 1,500 mg PO BEDTIME [facility] Last Admin: 06/02/20 20:07 Dose: 1,500 mg Documented by: Carvedilol (Carvedilol 12.5 Mg Tab) 12.5 mg PO QPM [facility] Last Admin: 06/02/20 17:00 Dose: 12.5 mg Documented by: Carvedilol (Carvedilol 25 Mg Tab) 25 mg PO QAM [facility] Last Admin: 06/03/20 07:24 Dose: 25 mg Documented by: Clotrimazole (Lotrimin Af 1% Crm) 1 gm TOP BID [facility] Last Admin: 06/03/20 07:25 Dose: 1 applic Documented by: Dextrose/Water (Dextrose 50% In Water) 50 ml IV ASDIRECTED PRN PRN Reason: Hypoglycemia Dextrose/Water (Dextrose 50% In Water) 50 ml IV ASDIRECTED PRN PRN Reason: Hypoglycemia Dorzolamide HCl (Trusopt 2% Ophth Soln) 0 ml EYEBOTH BID [facility] Last Admin: 06/03/20 07:25 Dose: 1 drop Documented by: Enoxaparin Sodium (Enoxaparin 30 Mg/0.3 Ml Syringe) 30 mg SUBCUT Q24H [facility] Last Admin: 06/02/20 15:11 Dose: 30 mg Documented by: Ferrous Sulfate (Ferrous Sulfate 325 Mg Tab) 325 mg PO BID [facility] Last Admin: 06/03/20 07:23 Dose: 325 mg Documented by: Furosemide (Furosemide 40 Mg/4 Ml Vial) 40 mg IVPUSH Q8H [facility] Last Admin: 06/01/20 21:19 Dose: 40 mg Documented by: Glucagon (Glucagen) 1 mg IM ASDIRECTED PRN PRN Reason: Hypoglycemia Ceftriaxone Sodium 1 gm/ (Sodium Chloride) 100 mls @ 200 mls/hr IV Q24H [facility] Last Admin: 06/01/20 11:59 Dose: 200 mls/hr Documented by: Insulin Human Lispro (Humalog) 0 unit SUBCUT QIDACANDBED [facility]; Protocol Last Admin: 06/03/20 07:24 Dose: Not Given Documented by: Latanoprost (Xalatan 0.005% Ophth Soln) 0 ml EYEBOTH BEDTIME [facility] Last Admin: 06/02/20 20:08 Dose: 1 drop Documented by: Loperamide HCl (Imodium Ad) 2 mg PO Q6H PRN PRN Reason: Diarrhea Magnesium Oxide (Magnesium Oxide 400 Mg Tab) 400 mg PO DAILY [facility] Last Admin: 06/03/20 07:23 Dose: 400 mg Documented by: Metronidazole (Metronidazole 500 Mg Tab) 500 mg PO Q8H [facility] Last Admin: 06/01/20 21:18 Dose: 500 mg Documented by: Nitroglycerin (Nitrostat) 0.4 mg SL ASDIRECTED PRN PRN Reason: Chest Pain Ondansetron HCl (Zofran) 4 mg IVPUSH Q6H PRN PRN Reason: Nausea/Vomiting Last Admin: 06/03/20 08:52 Dose: 4 mg Documented by: Pantoprazole Sodium (Pantoprazole 40 Mg Vial) 40 mg IVPUSH Q12H [facility] Last Admin: 06/02/20 11:28 Dose: 40 mg Documented by: Sodium Chloride (Saline Flush) 10 ml FLUSH ASDIRECTED PRN PRN Reason: Keep Vein Open Last Admin: 06/03/20 08:52 Dose: 10 ml Documented by: Discontinued Medications Bumetanide (Bumex) 2 mg PO DAILY [facility] Dextrose/Water (Dextrose 50% In Water) 50 ml IVPUSH ONETIME ONE Stop: 05/30/20 14:18 Last Admin: 05/30/20 14:47 Dose: 50 ml Documented by: Glucagon (Glucagen) 1 mg IM ASDIRECTED PRN PRN Reason: Hypoglycemia Sodium Chloride (Normal Saline) 1,000 mls @ 125 mls/hr IV ASDIRECTED [facility] Last Admin: 05/30/20 12:43 Dose: 125 mls/hr Documented by: Sodium Chloride (Normal Saline) 1,000 mls @ 500 mls/hr IV .BOLUS ONE Stop: 05/30/20 15:40 Last Admin: 05/30/20 14:00 Dose: 500 mls/hr Documented by: Sodium Chloride (Normal Saline) 1,000 mls @ 40 mls/hr IV ASDIRECTED [facility] Last Admin: 05/31/20 08:37 Dose: 40 mls/hr Documented by: Insulin Human Regular (Humulin R) 0 unit SUBCUT BIDAC [facility]; Protocol Last Admin: 05/31/20 08:33 Dose: Not Given Documented by: Insulin Human Regular (Humulin R) 10 unit IV ONETIME ONE Stop: 05/30/20 14:26 Last Admin: 05/30/20 14:43 Dose: 10 units Documented by: Losartan Potassium (Cozaar) 50 mg PO BID [facility] Last Admin: 05/31/20 08:31 Dose: 50 mg Documented by: Ondansetron HCl (Zofran) 4 mg IVPUSH ONETIME ONE Stop: 05/30/20 12:25 Last Admin: 05/30/20 12:38 Dose: 4 mg Documented by: Prochlorperazine Edisylate (Compazine) 5 mg IVPUSH ONETIME ONE Stop: 05/30/20 13:56 Last Admin: 05/30/20 14:24 Dose: 5 mg Documented by: Sodium Polystyrene Sulfonate (Kayexalate) 45 gm PO NOW ONE Stop: 05/30/20 13:43 Last Admin: 05/30/20 14:02 Dose: Not Given Documented by: Sodium Polystyrene Sulfonate (Kayexalate) 15 gm PO ONETIME ONE Stop: 05/30/20 13:56 Last Admin: 05/30/20 14:24 Dose: 15 gm Documented by: Sodium Polystyrene Sulfonate (Kayexalate) 15 gm PO ONETIME ONE Stop: 05/30/20 19:01 Last Admin: 05/30/20 19:22 Dose: 15 gm Documented by: Sodium Polystyrene Sulfonate (Kayexalate) 15 gm PO ONETIME ONE Stop: 05/31/20 08:01 Last Admin: 05/31/20 08:30 Dose: 15 gm Documented by: Spironolactone (Aldactone) 12.5 mg PO Q12HR [facility] - Exam General: Alert, Oriented, Cooperative, No Acute Distress HEENT: Pupils Equal, Pupils Reactive, EOMI, Mucous Membr. Moist/[place] Neck: Supple Lungs: Clear to Auscultation, Normal Respiratory Effort Cardiovascular: Regular Rate, Regular Rhythm, No Murmurs GI/Abdominal Exam: Soft, No Distention, Tender (mild discomfort diffusely with palpation/nonfocal), Abnormal Bowel Sounds (diminished throughout). No: Distended (Female) Exam: Deferred Back Exam: No: CVA Tenderness (L), CVA Tenderness (R), Muscle Spasm, Paraspinal Tenderness, Vertebral Tenderness Extremities: Non-Tender, Normal Capillary Refill, Pedal Edema Skin: Warm, Dry Neurological: No New Focal Deficit Psy/Mental Status: Alert, Normal Affect, Normal Mood - Patient Data Lab Results Last 24 hrs: Laboratory Results - last 24 hr 06/02/20 06/02/20 06/02/20 Range/Units 11:25 16:58 21:03 POC Glucose 159 H 101 131 H (65-110) mg/dl 06/03/20 Range/Units 07:20 POC Glucose 101 (65-110) mg/dl Result Diagrams: 06/02/20 07:03 06/02/20 07:03 Pool Results Last 24 hrs: Microbiology 05/31/20 10:02 Urine Culture - Final Urine, Quick Cath (In-Out) (Mrsa) Staphylococcus Aureus 05/30/20 17:00 Stool Aerobic Culture - Preliminary Stool / Feces Sepsis Event Note - Evaluation Sepsis Screening Result: No Definite Risk - Focused Exam Vital Signs: Vital Signs Temp Pulse Pulse Resp BP BP Pulse Ox 06/03/20 08:00 37.2 C 91 16 120/79 95 06/03/20 07:24 91 120/79 - Problem List & Annotations (1) C. difficile colitis SNOMED Code(s): 781255850 Code(s): A04.72 - ENTEROCOLITIS D/T CLOSTRIDIUM DIFFICILE, NOT SPCF RECUR Status: Acute Priority: High Current Visit: Yes Onset Date: ~05/30/20 Annotation/Comment:: Receiving Flagyl. Loose stools have resolved. Reviewed patient with from [facility] as patient is nearing her 96hrs. He recommended oral Vanco to help cover for both C.Diff and UTI. (2) UTI (urinary tract infection) SNOMED Code(s): 51930624 Code(s): N39.0 - URINARY TRACT INFECTION, SITE NOT SPECIFIED Status: Acute Priority: High Current Visit: Yes Onset Date: ~12/03/19 Qualifiers: Urinary tract infection type: acute cystitis Hematuria presence: without hematuria Qualified Code(s): N30.00 - Acute cystitis without hematuria Annotation/Comment:: Initially on Rocephin. Initial clean-catch UA was positive on admission, however note concomitant diarrhea with urine specimen not set up for culture and sensitivity. Quick cath UA was collected on 05/31 with persistent positive UTI and IV Rocephin initiate. Culture noted MRSA staff. Recommended to repeat culture by Castano/ to confirm. Will be switched to Vanco today which will cover both her C.Diff and current UTI. Patient has a long history of recurrent UTIs. (3) Diarrhea SNOMED Code(s): 07617964 Code(s): R19.7 - DIARRHEA, UNSPECIFIED Status: Acute Priority: High Current Visit: Yes Onset Date: ~05/30/20 Qualifiers: Diarrhea type: infectious Qualified Code(s): A09 - Infectious gastroenter itis and colitis, unspecified Annotation/Comment:: + for C-diff. Stool C&S negative (4) Hyperkalemia SNOMED Code(s): 20538397 Code(s): E87.5 - HYPERKALEMIA Status: Acute Priority: High Current Visit: Yes Annotation/Comment:: Significant elevation of potassium noted during ER evaluation. Suspect secondary to acute renal failure due to dehydration/loose stools. Much improved and now normalized after hydration/kayexalate (5) Diabetic nephropathy Status: Chronic Priority: High Current Visit: Yes Qualifiers: Diabetes mellitus type: type 2 Qualified Code(s): E11.21 - Type 2 diabetes mellitus with diabetic nephropathy Annotation/Comment:: Renal function significantly improved on 06/01 after discontinuation of multiple nephrotoxic medications on 05/31 as below. Acute renal failures/exacerbation of her chronic diabetic nephropathy with significant hyperkalemia likely secondary to her medical therapy as below, including spironolactone and losartan. Lactulose was initiated by on-call physician. Initially patient stated that she did not wish to be transferred to [place] and does not wish to consider dialysis, which has been discussed in the past by her previous physicians. The patient is reconsidering this at this time, although secondary to improved renal function on 06/01 this is likely not needed at this time. Continue aggressive care as below with consideration of patient transfer for nephrology consultation or on an outpatient basis. The patient will likely need long-term prison placement, if dialysis therapy is initiated. (6) Tinea cruris SNOMED Code(s): 638132229 Code(s): B35.6 - TINEA CRURIS Status: Acute Priority: Medium Current Visit: Yes Onset Date: ~05/31/20 Annotation/Comment:: Lotrimin AF started on 05/31. (7) Anemia SNOMED Code(s): 894952648 Code(s): D64.9 - ANEMIA, UNSPECIFIED Status: Chronic Priority: Medium Current Visit: Yes Onset Date: 02/27/18 Qualifiers: Anemia type: iron deficiency Annotation/Comment:: Hemoglobin stable on 06/01/2028. Note significant progression of her anemia since admission likely secondary to rehydration effect with hemoglobin of 9.8 on 05/31 in comparison to 12.4 on admission. Long history of iron deficiency anemia with iron supplement reinitiated on 05/31. Continue to observe closely during this hospitalization. No evidence of acute GI bleed, however IV Protonix was initiated on 05/31. Further work-up depending on her clinical course. Note chronic renal insufficiency. (8) CHF (congestive heart failure) SNOMED Code(s): 39836951 Code(s): I50.9 - HEART FAILURE, UNSPECIFIED Status: Chronic Priority: High Current Visit: Yes Onset Date: 02/21/17 Qualifiers: Heart failure chronicity: acute on chronic Annotation/Comment:: No chest pain or anginal type symptoms either prior to admission and/or during this hospitalization. EKG showed complete bifascicular bundle branch block on admission with history of PACs, PVCs, and previous SVT. Note known history of cardiomegaly with echocardiogram last performed on 08/26/18 with an ejection fraction of 45% at that time and history of pulmonary hypertension. Consider repeat echocardiogram once her medical therapy has been determined on an outpatient basis. No previous problems with intolerance to MONICA inhibitor's and spironolactone with secondary hyperkalemia. Medication compliance has also been an issue in the past. Secondary to her hyperkalemia her previous Bumex therapy will be changed to IV Lasix with patient initially hydrated secondary to her renal failure and significant diarrhea on admission. She is eating well at this time with IV fluids discontinued on 05/31. Her previous losartan and spironolactone therapy were discontinued on 05/31 secondary to her significant hyperkalemia on admission with patient previously extremely sensitive to these medications secondary to her renal disease. (9) COPD (chronic obstructive pulmonary disease) SNOMED Code(s): 98073942 Code(s): J44.9 - CHRONIC OBSTRUCTIVE PULMONARY DISEASE, UNSPECIFIED Status: Chronic Priority: Medium Current Visit: Yes Qualifiers: COPD type: emphysema Emphysema type: panlobular Qualified Code(s): J43.1 - Panlobular emphysema Annotation/Comment:: No recent fever or bronchitic type symptoms. Continue nebulizer and inhaler therapy as before. (10) Diabetes mellitus SNOMED Code(s): 27842601 Code(s): E11.9 - TYPE 2 DIABETES MELLITUS WITHOUT COMPLICATIONS Status: Chronic Priority: Medium Current Visit: Yes Qualifiers: Diabetes mellitus type: type 2 Diabetes mellitus snf insulin use: with exterminator helper use Diabetes mellitus complication status: with kidney complications Diabetes mellitus complication detail: with chronic kidney disease Chronic kidney disease stage: stage 4 (severe) Qualified Code(s): E11.22 - Type 2 diabetes mellitus with diabetic chronic kidney disease; N18.4 - Chronic kidney disease, stage 4 (severe); Z79.4 - half-way (current) use of insulin Annotation/Comment:: IV human regular insulin given secondary to her hyperkalemia as above. Patient was changed to a 4 times daily Humalog subcu s liding scale on 05/31 with significantly improved Accu-Cheks at this time. Note diabetic nephropathy, diabetic neuropathy, etc.. Glycosylated hemoglobin 5.0% on 06/01/2020. (11) Hypertension SNOMED Code(s): 97459292 Code(s): I10 - ESSENTIAL (PRIMARY) HYPERTENSION Status: Chronic Priority: Medium Current Visit: Yes Qualifiers: Hypertension type: essential hypertension Qualified Code(s): I10 - Essential (primary) hypertension Annotation/Comment:: Stable during this hospitalization. (12) Hypocalcemia SNOMED Code(s): 0487147 Code(s): E83.51 - HYPOCALCEMIA Status: Chronic Priority: Medium Current Visit: Yes Onset Date: 03/01/18 Annotation/Comment:: Resumed OTC Tums as calcium supplementation and GI prophylaxis on 06/01/2019. Continue to observe closely. (13) Need for comfort care SNOMED Code(s): 308266813, 512955664 Code(s): HXZ2752 - Status: Chronic Priority: Medium Current Visit: Yes Annotation/Comment:: Patient requesting comfort care on admission as above. Long-term prognosis poor secondary to patient's recurrent renal failure/diabetic nephropathy and multiple healthcare issues as above. She is now considering possible hospital transfer as above. (14) Osteoarthritis SNOMED Code(s): 519228468 Code(s): M19.90 - UNSPECIFIED OSTEOARTHRITIS, UNSPECIFIED SITE Status: [facility] Priority: High Current Visit: Yes Qualifiers: Osteoarthritis location: multiple joints Osteoarthritis type: primary Qualified Code(s): M89.49 - Other hypertrophic osteoarthropathy, multiple sites Annotation/Comment:: Stable by history. (15) Peptic reflux disease SNOMED Code(s): 398599310 Code(s): K21.9 - GASTRO-ESOPHAGEAL REFLUX DISEASE WITHOUT ESOPHAGITIS Status: Chronic Priority: Medium Current Visit: Yes Annotation/Comment:: Stable by history. IV Protonix initiated on 05/31 as above (16) Hyperphosphatemia SNOMED Code(s): 94148522 Code(s): E83.39 - OTHER DISORDERS OF PHOSPHORUS METABOLISM Status: Acute Priority: High Current Visit: No Onset Date: 07/14/19 Annotation/Comment:: Chronic history of intermittent hyperphosphatemia secondary to recurrent exacerbation of her diabetic nephropathy. Consider PhosLo depending on her clinical course with phosphate level normal 06/01/20 despite her recent acute renal failure as above. - Problem List Review Problem List Initiated/Reviewed/Updated: Yes - My Orders Last 24 Hours: My Active Orders 06/03/20 08:00 Mometasone/Formoterol [Dulera 200-5 MCG] 1 puff IH BID Pantoprazole [ProTONIX IV] 40 mg IVPUSH DAILY 06/03/20 10:17 UA W/MICROSCOPIC [URIN] Routine 06/04/20 05:11 COMPREHENSIVE METABOLIC PN,CMP [CHEM] AM 06/04/20 05:15 CBC WITH AUTO DIFF [HEME] AM - Assessment Assessment:: As above - Plan Plan:: As above. As noted patient's UC pointed to MRSA UTI. Rocephin discontinued. Patient complaining of nausea all morning/single small emesis noted. Call placed to [facility] and patient reviewed with and possibility of transferring to [facility] discussed given her current problems and comorbidities. Also, patient's 96 hours will be up today. He recommended that she stay here another day or two and be changed over to Vanco PO that will cover both her UTI (based on current results) and C.Diff. If she does not improve or renal function worsens can reconsider transfer. Will make that medication change. Labs ordered for morning. Anticipate another 36-48 hour stay while response to these medications is evaluated.
[2020-06-03] MEDS: Enoxaparin 30 MG/0.3 ML Syringe SUBCUT SCH (13:19)
[2020-06-03] MEDS: Sulfamethoxazole/Trimethoprim 800-160 MG Tab PO SCH ×2 (13:20→19:37)
[2020-06-03] MEDS: Fluconazole 100 MG Tab PO SCH (17:18)
[2020-06-03] MEDS: Carvedilol 12.5 MG Tab PO SCH (17:21)
[2020-06-03] MEDS: Calcium Carbonate 750 MG Tab.Chew PO SCH (19:33)
[2020-06-03] MEDS: Latanoprost 0.005% Ophth Soln 2.5 ML Bottle EYEBOTH SCH (19:39)
[2020-06-03] MEDS: atorvaSTATin 40 MG Tab PO SCH (19:39)
[2020-06-04] MEDS: Sodium Chloride 0.9% 10 ML Syringe FLUSH PRN ×3 (06:32→12:35)
[2020-06-04] MEDS: Ondansetron 4 MG/2 ML SDV IVPUSH PRN ×2 (06:32→12:35)
[2020-06-04] MEDS: Pantoprazole 40 MG Vial IVPUSH SCH (08:12)
[2020-06-04] MEDS: Insulin Lispro 100 Units/ML 3 ML Vial SUBCUT SCH (08:14)
[2020-06-04] MEDS: Furosemide 40 MG/4 ML VIAL IVPUSH SCH (09:30)
[2020-06-04] MEDS: Ferrous Sulfate 325 MG Tab PO SCH (09:31)
[2020-06-04] MEDS: Magnesium Oxide 400 MG Tab PO SCH (09:31)
[2020-06-04] MEDS: metroNIDAZOLE 500 MG Tab PO SCH (09:31)
[2020-06-04] MEDS: Fluconazole 100 MG Tab PO SCH (09:31)
[2020-06-04] MEDS: Carvedilol 25 MG Tab PO SCH (09:31)
[2020-06-04] MEDS: Sulfamethoxazole/Trimethoprim 800-160 MG Tab PO SCH (09:31)
[2020-06-04] MEDS: Albuterol/Ipratropium 3.0-0.5 MG/3 ML Neb Soln NEB SCH ×2 (09:32→11:33)
[2020-06-04] MEDS: Clotrimazole 1% Crm 30 GM Tube TOP SCH (09:32)
[2020-06-04] MEDS: Aspirin 81 MG Tab.EC PO SCH (09:32)
[2020-06-04] MEDS: Formoterol/Mometasone 200-5 MCG 8.8 GM Inhaler IH SCH (09:32)
[2020-06-04] MEDS: Dorzolamide 2% Ophth Soln 10 ML Bottle EYEBOTH SCH (09:33)
--- NOTE | 2020-06-04 11:40 | PCM.DCSUM1 ---
Discharge Summary - Hospital Course Brief History: Patient admitted for treatment of vomiting/diarrhea/dehydration. Found to have C-Diff. Also diagnosed with UTI. Diagnosis: Stroke: No - Discharge Data Discharge Date: 06/04/20 Discharge Disposition: DC/Tfer W/I Hosp To Swing 61 Condition: Good - Referral to Home Health Primary Care Physician: LARISSA West-C - Discharge Diagnosis/Problem(s) (1) C. difficile colitis SNOMED Code(s): 000229597 ICD Code: A04.72 - ENTEROCOLITIS D/T CLOSTRIDIUM DIFFICILE, NOT SPCF RECUR Status: Acute Priority: High Current Visit: Yes Onset Date: ~05/30/20 Problem Details: Receiving Flagyl. Loose stools have resolved. Still has complaints of nausea and abdominal discomfort. She reports chronic issues with nausea at home so this is not new. Suspect antibiotic treatment she is currently receiving is exacerbating the issue. (2) UTI (urinary tract infection) SNOMED Code(s): 80170026 ICD Code: N39.0 - URINARY TRACT INFECTION, SITE NOT SPECIFIED Status: Acute Priority: High Current Visit: Yes Onset Date: ~12/03/19 Problem Details: Initial urine contaminated with diarrhea. Quick cath UA was collected on 05/31 with persistent positive UTI and IV Rocephin initiated. Culture noted MRSA staph. Repeat cath UA showed essentially clean urine after several days on Rocephin. New UC pending. Changed to oral Septra to finish UTI treatment/susceptible per C&S. Patient has a long history of recurrent UTIs. Qualifiers: Urinary tract infection type: acute cystitis Hematuria presence: without hematuria Qualified Code(s): N30.00 - Acute cystitis without hematuria (3) Diarrhea SNOMED Code(s): 70666441 ICD Code: R19.7 - DIARRHEA, UNSPECIFIED Status: Acute Priority: High Current Visit: Yes Onset Date: ~05/30/20 Problem Details: + for C-diff. Stool C&S negative Qualifiers: Diarrhea type: infectious Qualified Code(s): A09 - Infectious gastroenteritis and colitis, unspecified (4) Hyperkalemia SNOMED Code(s): 05520934 ICD Code: E87.5 - HYPERKALEMIA Status: Acute Priority: High Current Visit: Yes Problem Details: Significant elevation of potassium noted during ER evaluation. Suspect secondary to acute renal failure due to dehydration/loose stools. Much improved and now normalized after hydration/kayexalate (5) Physical deconditioning SNOMED Code(s): 54195936561341 ICD Code: R53.81 - OTHER MALAISE Status: Chronic Priority: High Current Visit: Yes Problem Details: Patient has been working with PT and ambulating with walker. PT feels that patient will benefit from Swing Bed in order to receive additional assistance with strengthening and ambulation. Admit to Swing Bed today. Anticipate 1-2 week stay depending on response to PT. (6) Diabetic nephropathy Status: Chronic Priority: High Current Visit: Yes Problem Details: Renal function significantly improved on 06/01 after discontinuation of multiple nephrotoxic medications on 05/31 as below. Acute renal failures/exacerbation of her chronic diabetic nephropathy with significant hyperkalemia likely secondary to C-Diff/vomiting/diarrhea with her medical therapy as below, including spironolactone and losartan, as potential contributing factors. Lactulose was initiated by on-call physician. Patient stated that she did not wish to be transferred to [place] during ER evaluation and does not wish to consider di alysis, which has been discussed in the past by her previous physicians. The patient will likely need long-term group home placement, if dialysis therapy is initiated, due to current home sitation and transport limitations. Qualifiers: Diabetes mellitus type: type 2 Qualified Code(s): E11.21 - Type 2 diabetes mellitus with diabetic nephropathy (7) Tinea cruris SNOMED Code(s): 675125357 ICD Code: B35.6 - TINEA CRURIS Status: Acute Priority: Medium Current Visit: Yes Onset Date: ~05/31/20 Problem Details: Lotrimin AF started on 05/31. (8) Anemia SNOMED Code(s): 174631680 ICD Code: D64.9 - ANEMIA, UNSPECIFIED Status: Chronic Priority: Medium Current Visit: Yes Onset Date: 02/27/18 Problem Details: Hemoglobin stable on 06/01/2028. Note significant progression of her anemia since admission likely secondary to rehydration effect with hemoglobin of 9.8 on 05/31 in comparison to 12.4 on admission. Long history of iron deficiency anemia with iron supplement reinitiated on 05/31. Continue to observe closely during this hospitalization. No evidence of acute GI bleed, however IV Protonix was initiated on 05/31. Note chronic renal insufficiency. Qualifiers: Anemia type: iron deficiency (9) CHF (congestive heart failure) SNOMED Code(s): 43595408 ICD Code: I50.9 - HEART FAILURE, UNSPECIFIED Status: Chronic Priority: High Current Visit: Yes Onset Date: 02/21/17 Problem Details: No chest pain or anginal type symptoms either prior to admission and/or during this hospitalization. EKG showed complete bifascicular bundle branch block on admission with history of PACs, PVCs, and previous SVT. Note known history of cardiomegaly with echocardiogram last performed on 08/26/18 with an ejection fraction of 45% at that time and history of pulmonary hypertension. Consider repeat echocardiogram once her medical therapy has been determined on an outpatient basis. No previous problems with intolerance to MONICA inhibitor's and spironolactone with secondary hyperkalemia. Medication compliance has also been an issue in the past. Secondary to her hyperkalemia her previous Bumex therapy will be changed to IV Lasix with patient initially hydrated secondary to her renal failure and significant diarrhea on admission. She is eating well at this time with IV fluids discontinued on 05/31. Her previous losartan and spironolactone therapy were discontinued on 05/31 secondary to her significant hyperkalemia on admission with patient previously extremely sensitive to these medications secondary to her renal disease. Qualifiers: Heart failure chronicity: acute on chronic (10) COPD (chronic obstructive pulmonary disease) SNOMED Code(s): 38241146 ICD Code: J44.9 - CHRONIC OBSTRUCTIVE PULMONARY DISEASE, UNSPECIFIED Status: Chronic Priority: Medium Current Visit: Yes Problem Details: No recent fever or bronchitic type symptoms. Continue nebulizer and inhaler therapy as before. Qualifiers: COPD type: emphysema Emphysema type: panlobular Qualified Code(s): J43.1 - Panlobular emphysema (11) Diabetes mellitus SNOMED Code(s): 53689570 ICD Code: E11.9 - TYPE 2 DIABETES MELLITUS WITHOUT COMPLICATIONS Status: Chronic Priority: Medium Current Visit: Yes Problem Details: IV human regular insulin given secondary to her hyperkalemia as above. Patient was changed to a 4 times daily Humalog subcu sliding scale on 05/31 with significantly improved Accu-Cheks at this time. Note diabetic nephropathy, diabetic neuropathy, etc.. Glycosylated hemoglobin 5.0% on 06/01/2020. Qualifiers: Diabetes mellitus type: type 2 Diabetes mellitus manager intermediate insulin use: with fci use Diabetes mellitus complication status: with kidney complications Diabetes mellitus complication detail: with chronic kidney disease Chronic kidney disease stage: stage 4 (severe) Qualified Code(s): E11.22 - Type 2 diabetes mellitus with diabetic chronic kidney disease; N18.4 - Chronic kidney disease, stage 4 (severe); Z79.4 - detention (current) use of insulin (12) Hypertension SNOMED Code(s): 48909040 ICD Code: I10 - ESSENTIAL (PRIMARY) HYPERTENSION Status: Chronic Priority: Medium Current Visit: Yes Problem Details: Stable during this hospitalization. Qualifiers: Hypertension type: essential hypertension Qualified Code(s): I10 - Essential (primary) hypertension (13) Hypocalcemia SNOMED Code(s): 9356446 ICD Code: E83.51 - HYPOCALCEMIA Status: Chronic Priority: Medium Current Visit: Yes Onset Date: 03/01/18 Problem Details: Resumed OTC Tums as calcium supplementation and GI prophylaxis on 06/01/2019. Continue to observe closely. (14) Need for comfort care SNOMED Code(s): 267091342, 678951153 ICD Code: CRV9212 - Status: Chronic Priority: Medium Current Visit: Yes Problem Details: Patient requesting comfort care on admission as above. Long-term prognosis poor secondary to patient's recurrent renal failure/diabetic nephropathy and multiple healthcare issues as above. (15) Osteoarthritis SNOMED Code(s): 804936204 ICD Code: M19.90 - UNSPECIFIED OSTEOARTHRITIS, UNSPECIFIED SITE Status: Chronic Priority: High Current Visit: Yes Problem Details: Stable by history. Qualifiers: Osteoarthritis location: multiple joints Osteoarthritis type: primary Qualified Code(s): M89.49 - Other hypertrophic osteoarthropathy, multiple sites (16) Peptic reflux disease SNOMED Code(s): 345318393 ICD Code: K21.9 - GASTRO-ESOPHAGEAL REFLUX DISEASE WITHOUT ESOPHAGITIS Status: Chronic Priority: Medium Current Visit: Yes Problem Details: Stable by history. IV Protonix initiated on 05/31 as above (17) Hyperphosphatemia SNOMED Code(s): 54351418 ICD Code: E83.39 - OTHER DISORDERS OF PHOSPHORUS METABOLISM Status: Acute Priority: High Current Visit: No Onset Date: 07/14/19 Problem Details: Chronic history of intermittent hyperphosphatemia secondary to recurrent exacerbation of her diabetic nephropathy. Consider PhosLo depending on her clinical course with phosphate level normal 06/01/20 despite her recent acute renal failure as above. (18) Chronic nausea SNOMED Code(s): 389967198, 759199900 ICD Code: R11.0 - NAUSEA Status: Chronic Priority: Medium Current Visit: Yes Problem Details: Patient reports chronic issues with nausea/some abdominal discomfort. Worse in mornings. Appears to be acute exacerbated by current antibiotic regimen. Observe. - Patient Summary/Data Consults: Consultations 05/30/20 14:09 Consult to Case Management/Senior Director Finance [CONS] Routine Consult to Physical Therapy [PT Evaluation and Treatment] [CONS] Routine OT Evaluation and Treatment [CONS] Routine Hospital Course: See above for problems/interventions/responses to treatment - Discharge Plan *PRESCRIPTION DRUG MONITORING PROGRAM REVIEWED*: Not Applicable *COPY OF PRESCRIPTION DRUG MONITORING REPORT IN PATIENT MONSERRAT: Not Applicable Home Medications: Home Meds Albuterol/Ipratropium [DuoNeb 3.0-0.5 MG/3 ML] 3 ml NEB QID 02/21/17 [History] Latanoprost [Xalatan 0.005% Ophth Soln] 1 drop EYEBOTH BEDTIME 02/21/17 [History] atorvaSTATin Calcium [Atorvastatin Calcium] 40 mg PO BEDTIME 02/21/17 [History] Loperamide [Imodium AD] 2 mg PO Q6H PRN #0 tablet 03/01/18 [Rx] Aspirin [Lo-Dose Aspirin EC] 81 mg PO DAILY 06/26/19 [History] Brinzolamide [Azopt 1% Ophth Susp] 1 drop EYEBOTH BID 06/26/19 [History] Insulin Glarg,Human.Rec.Analog [Lantus Solostar] 10 units SUBCUT DAILY 06/26/19 [History] Insulin Glulisine [Apidra Solostar] 6 - 8 unit SUBCUT TID 06/26/19 [History] Nitroglycerin 1 tab SL ASDIRECTED PRN 06/26/19 [History] carvediloL [Carvedilol] 25 mg PO QAM 06/26/19 [History] carvediloL [Carvedilol] 12.5 mg PO QPM 12/02/19 [History] Acetaminophen [Tylenol] 650 mg PO Q4H PRN tablet 12/07/19 [Rx] Albuterol [Proair HFA] 1 gm INH Q2H PRN inhaler 12/07/19 [Rx] Bumetanide [Bumex] 2 mg PO DAILY #30 12/07/19 [Rx] Calcium Carbonate [Tums Extra Strength] 1,500 mg PO BEDTIME tab.chew 12/07/19 [Rx] Ferrous Sulfate 325 mg PO BID tablet 12/07/19 [Rx] Losartan [Cozaar] 50 mg PO BID #60 tablet 12/07/19 [Rx] Spironolactone [Aldactone] 12.5 mg PO Q12HR 12/07/19 [History] bisacodyL [Dulcolax] 10 mg RECTAL DAILY PRN supp 12/07/19 [Rx] Budesonide/Formoterol [Symbicort 160-4.5 MCG] 1 puff INH BID 06/02/20 [History] Forms: ED Department Discharge Referrals: Meeta Calvo PA-C [Primary Care Provider] - - Discharge Summary/Plan Comment DC Time >30 min.: No - General Info Date of Service: 06/04/20 Admission Dx/Problem (Free Text: 1. Acute renal failure with history of chronic renal insufficiency 2. Hyperkalemia 3. CHF 4. Diabetes mellitus 5. C-Diff with secondary dehydration 6. physical deconditioning Subjective Update: Patient has had several formed bowel movements last 24 hours. Complains of nausea this morning again Functional Status: Reports: Pain Controlled, Tolerating Diet, Ambulating (with assistance/walker), Urinating. Denies: New Symptoms - Review of Systems General: Reports: Weakness, Fatigue. Denies: Fever, Malaise, Chills, Night Sweats HEENT: Denies: Ear Pain, Eye Pain, Sinus Congestion, Sore Throat, Visual Changes Pulmonary: Reports: Shortness of Breath (chronic baseline COPD). Denies: Pleuritic Chest Pain, Cough, Sputum, Hemoptysis, Wheezing Cardiovascular: Reports: Dyspnea on Exertion (chronic). Denies: Chest Pain, P alpitations, Orthopnea, PND, Edema, Lightheadedness Gastrointestinal: Reports: Abdominal Pain, Nausea, Vomiting. Denies: Constipation, Decreased Appetite, Diarrhea, Difficulty Swallowing, Hematochezia Genitourinary: Denies: Dysuria, Frequency, Burning, Pain, Urgency, Hematuria, Flank Pain Musculoskeletal: Reports: Other (no acute changes from baseline) Skin: Reports: Other (rash in tommy-area) Neurological: Reports: Weakness (chronic/symetric). Denies: Confusion, Dizzin ess, Headache, Paresthesia, Syncope, Trouble Speaking, Change in Speech - Patient Data Vitals - Most Recent: Last Vital Signs Temp 36.8 C 06/04/20 07:28 Pulse 73 06/04/20 09:31 Resp 16 06/04/20 07:28 BP 130/76 06/04/20 09:31 Pulse Ox 94 L 06/04/20 07:28 Weight - Most Recent: 75.342 kg I&O - Last 24 hours: Intake & Output 06/03/20 06/04/20 06/04/20 22:59 06:59 14:59 Intake Total 120 250 Output Total 200 200 Balance -80 50 Lab Results - Last 24 hrs: Laboratory Results - last 24 hr 06/03/20 06/03/20 06/03/20 Range/Units 13:45 17:07 19:52 WBC (4.0-10.2) K/uL RBC (3.77-5.09) M/uL Hgb (11.7-15.5) g/dL Hct (34.0-46.0) % MCV (84.0-98.0) fL MCH (28.2-33.3) pg MCHC (31.7-36.0) g/dL RDW (11.2-14.1) % Plt Count (150-350) K/uL Neut % (Auto) (45.0-80.0) % Lymph % (Auto) (10.0-50.0) % [place] % (Auto) (2.0-14.0) % Eos % (Auto) (0.0-5.0) % Baso % (Auto) (0.0-2.0) % Neut # (Auto) (1.40-7.00) K/uL Lymph # (Auto) (0.50-3.50) K/uL [place] # (Auto) (0.00-1.00) K/uL Eos # (Auto) (0.00-0.50) K/uL Baso # (Auto) (0.00-0.20) K/uL Sodium (136-145) mmol/L Potassium (3.5-5.1) mmol/L Chloride (98-107) mmol/L Carbon Dioxide (21.0-32.0) mmol/L BUN (7-18) mg/dL Creatinine (0.51-1.17) mg/dL Est Cr Clr Drug Dosing mL/min Estimated GFR (MDRD) mL/min Glucose (70-99) mg/dL POC Glucose 105 107 (65-110) mg/dl Calcium (8.5-10.1) mg/dL Total Bilirubin (0.2-1.0) mg/dL AST (15-37) U/L ALT (12-78) U/L Alkaline Phosphatase (46-116) IU/L Total Protein (6.4-8.2) g/dL Albumin (3.4-5.0) g/dL Specimen Type Urinqcath Urine Color Yellow Urine Appearance Slightly cloudy Urine pH 5.0 (5.0-9.0) Ur Specific [place] 1.015 (1.005-1.030) Urine Protein 100 H (NEGATIVE) mg/dL Urine Glucose (UA) Negative (NEGATIVE) mg/dL Urine Ketones Negative (NEGATIVE) mg/dL Urine Occult Blood Negative (NEGATIVE) Urine Nitrite Negative (NEGATIVE) Urine Bilirubin Negative (NEGATIVE) Urine Urobilinogen 0.2 (0.2-1.0) E.U./dL Ur Leukocyte Esterase Trace H (NEGATIVE) U Hyaline Cast (Auto) Few Urine RBC 0-5 /HPF Urine WBC 0-5 /HPF Ur Epithelial Cells Few /LPF Amorphous Sediment Moderate H (0/HPF) /HPF Urine Bacteria Few (NONE TO FEW) /HPF 06/04/20 06/04/20 06/04/20 Range/Units 07:16 07:25 07:30 WBC 7.7 (4.0-10.2) K/uL RBC 3.54 L (3.77-5.09) M/uL Hgb 10.7 L (11.7-15.5) g/dL Hct 34.2 (34.0-46.0) % MCV 96.6 (84.0-98.0) fL MCH 30.2 (28.2-33.3) pg MCHC 31.3 L (31.7-36.0) g/dL RDW 13.1 (11.2-14.1) % Plt Count 148 L (150-350) K/uL Neut % (Auto) 54.5 (45.0-80.0) % Lymph % (Auto) 32.2 (10.0-50.0) % [place] % (Auto) 8.7 (2.0-14.0) % Eos % (Auto) 4.1 (0.0-5.0) % Baso % (Auto) 0.5 (0.0-2.0) % Neut # (Auto) 4.21 (1.40-7.00) K/uL Lymph # (Auto) 2.49 (0.50-3.50) K/uL [place] # (Auto) 0.67 (0.00-1.00) K/uL Eos # (Auto) 0.32 (0.00-0.50) K/uL Baso # (Auto) 0.04 (0.00-0.20) K/uL Sodium 143 (136-145) mmol/L Potassium 4.3 (3.5-5.1) mmol/L Chloride 109 H (98-107) mmol/L Carbon Dioxide 23.6 (21.0-32.0) mmol/L BUN 56 H (7-18) mg/dL Creatinine 2.68 H (0.51-1.17) mg/dL Est Cr Clr Drug Dosing 12.48 mL/min Estimated GFR (MDRD) 17 mL/min Glucose 125 H (70-99) mg/dL POC Glucose 108 (65-110) mg/dl Calcium 8.7 (8.5-10.1) mg/dL Total Bilirubin 0.5 (0.2-1.0) mg/dL AST 26 (15-37) U/L ALT 22 (12-78) U/L Alkaline Phosphatase 70 (46-116) IU/L Total Protein 6.8 (6.4-8.2) g/dL Albumin 3.3 L (3.4-5.0) g/dL Specimen Type Urine Color Urine Appearance Urine pH (5.0-9.0) Ur Specific [place] (1.005-1.030) Urine Protein (NEGATIVE) mg/dL Urine Glucose (UA) (NEGATIVE) mg/dL Urine Ketones (NEGATIVE) mg/dL Urine Occult Blood (NEGATIVE) Urine Nitrite (NEGATIVE) Urine Bilirubin (NEGATIVE) Urine Urobilinogen (0.2-1.0) E.U./dL Ur Leukocyte Esterase (NEGATIVE) U Hyaline Cast (Auto) Urine RBC /HPF Urine WBC /HPF Ur Epithelial Cells /LPF Amorphous Sediment (0/HPF) /HPF Urine Bacteria (NONE TO FEW) /HPF FAYE Results - Last 24 hrs: Microbiology 05/30/20 17:00 Stool Aerobic Culture - Final Stool / Feces 06/03/20 13:45 Urine Culture - Preliminary Urine, Voided NO GROWTH AFTER 1 DAY 05/31/20 10:02 Urine Culture - Final Urine, Quick Cath (In-Out) (Mrsa) Staphylococcus Aureus Med Orders - Current: Current Medications Acetaminophen (Acetaminophen 325 Mg Tab) 650 mg PO Q4H PRN PRN Reason: analgesia/fever Last Admin: 06/01/20 08:56 Dose: 650 mg Documented by: Albuterol (Proventil Hfa) 0 gm INH Q2H PRN PRN Reason: Shortness of Breath Last Admin: 06/02/20 21:09 Dose: 1 puff Documented by: Albuterol/Ipratropium (Albuterol/Ipratropium 3.0-0.5 Mg/3 Ml Neb Soln) 3 ml NEB QIDRT [facility] Last Admin: 06/04/20 09:32 Dose: 3 ml Documented by: Aspirin (Aspirin 81 Mg Tab.Ec) 81 mg PO DAILY [facility] Last Admin: 06/04/20 09:32 Dose: 81 mg Documented by: Atorvastatin Calcium (Atorvastatin 40 Mg Tab) 40 mg PO BEDTIME [facility] Last Admin: 06/03/20 19:39 Dose: 40 mg Documented by: Bisacodyl (Dulcolax) 10 mg RECTAL DAILY PRN PRN Reason: Constipation Calcium Carbonate/Glycine (Calcium Carbonate 750 Mg Tab.Chew) 1,500 mg PO BEDTIME [facility] Last Admin: 06/03/20 19:33 Dose: 1,500 mg Documented by: Carvedilol (Carvedilol 12.5 Mg Tab) 12.5 mg PO QPM [facility] Last Admin: 06/03/20 17:21 Dose: 12.5 mg Documented by: Carvedilol (Carvedilol 25 Mg Tab) 25 mg PO QAM [facility] Last Admin: 06/04/20 09:31 Dose: 25 mg Documented by: Clotrimazole (Lotrimin Af 1% Crm) 1 gm TOP BID [facility] Last Admin: 06/04/20 09:32 Dose: 1 applic Documented by: Dextrose/Water (Dextrose 50% In Water) 50 ml IV ASDIRECTED PRN PRN Reason: Hypoglycemia Dextrose/Water (Dextrose 50% In Water) 50 ml IV ASDIRECTED PRN PRN Reason: Hypoglycemia Dorzolamide HCl (Trusopt 2% Ophth Soln) 0 ml EYEBOTH BID [facility] Last Admin: 06/04/20 09:33 Dose: 1 drop Documented by: Enoxaparin Sodium (Enoxaparin 30 Mg/0.3 Ml Syringe) 30 mg SUBCUT Q24H [facility] Last Admin: 06/03/20 13:19 Dose: 30 mg Documented by: Ferrous Sulfate (Ferrous Sulfate 325 Mg Tab) 325 mg PO BID [facility] Last Admin: 06/04/20 09:31 Dose: 325 mg Documented by: Furosemide (Furosemide 40 Mg/4 Ml Vial) 40 mg IVPUSH BID [facility] Last Admin: 06/04/20 09:30 Dose: 40 mg Documented by: Glucagon (Glucagen) 1 mg IM ASDIRECTED PRN PRN Reason: Hypoglycemia Insulin Human Lispro (Humalog) 0 unit SUBCUT QIDACANDBED [facility]; Protocol Last Admin: 06/04/20 08:14 Dose: Not Given Documented by: Latanoprost (Xalatan 0.005% Ophth Soln) 0 ml EYEBOTH BEDTIME [facility] Last Admin: 06/03/20 19:39 Dose: 1 drop Documented by: Loperamide HCl (Imodium Ad) 2 mg PO Q6H PRN PRN Reason: Diarrhea Magnesium Oxide (Magnesium Oxide 400 Mg Tab) 400 mg PO DAILY [facility] Last Admin: 06/04/20 09:31 Dose: 400 mg Documented by: Metronidazole (Metronidazole 500 Mg Tab) 500 mg PO Q8H [facility] Last Admin: 06/01/20 21:18 Dose: 500 mg Documented by: Nitroglycerin (Nitrostat) 0.4 mg SL ASDIRECTED PRN PRN Reason: Chest Pain Ondansetron HCl (Zofran) 4 mg IVPUSH Q6H PRN PRN Reason: Nausea/Vomiting Last Admin: 06/04/20 06:32 Dose: 4 mg Documented by: Pantoprazole Sodium (Pantoprazole 40 Mg Vial) 40 mg IVPUSH Q12H [facility] Last Admin: 06/02/20 11:28 Dose: 40 mg Documented by: Sodium Chloride (Saline Flush) 10 ml FLUSH ASDIRECTED PRN PRN Reason: Keep Vein Open Last Admin: 06/04/20 08:12 Dose: 10 ml Documented by: Discontinued Medications Bumetanide (Bumex) 2 mg PO DAILY [facility] Dextrose/Water (Dextrose 50% In Water) 50 ml IVPUSH ONETIME ONE Stop: 05/30/20 14:18 Last Admin: 05/30/20 14:47 Dose: 50 ml Documented by: Furosemide (Furosemide 40 Mg/4 Ml Vial) 40 mg IVPUSH Q8H [facility] Last Admin: 06/01/20 21:19 Dose: 40 mg Documented by: Glucagon (Glucagen) 1 mg IM ASDIRECTED PRN PRN Reason: Hypoglycemia Sodium Chloride (Normal Saline) 1,000 mls @ 125 mls/hr IV ASDIRECTED [facility] Last Admin: 05/30/20 12:43 Dose: 125 mls/hr Documented by: Sodium Chloride (Normal Saline) 1,000 mls @ 500 mls/hr IV .BOLUS ONE Stop: 05/30/20 15:40 Last Admin: 05/30/20 14:00 Dose: 500 mls/hr Documented by: Sodium Chloride (Normal Saline) 1,000 mls @ 40 mls/hr IV ASDIRECTED [facility] Last Admin: 05/31/20 08:37 Dose: 40 mls/hr Documented by: Ceftriaxone Sodium 1 gm/ (Sodium Chloride) 100 mls @ 200 mls/hr IV Q24H [facility] Last Admin: 06/01/20 11:59 Dose: 200 mls/hr Documented by: Insulin Human Regular (Humulin R) 0 unit SUBCUT BIDAC [facility]; Protocol Last Admin: 05/31/20 08:33 Dose: Not Given Documented by: Insulin Human Regular (Humulin R) 10 unit IV ONETIME ONE Stop: 05/30/20 14:26 Last Admin: 05/30/20 14:43 Dose: 10 units Documented by: Losartan Potassium (Cozaar) 50 mg PO BID [facility] Last Admin: 05/31/20 08:31 Dose: 50 mg Documented by: Ondansetron HCl (Zofran) 4 mg IVPUSH ONETIME ONE Stop: 05/30/20 12:25 Last Admin: 05/30/20 12:38 Dose: 4 mg Documented by: Prochlorperazine Edisylate (Compazine) 5 mg IVPUSH ONETIME ONE Stop: 05/30/20 13:56 Last Admin: 05/30/20 14:24 Dose: 5 mg Documented by: Sodium Polystyrene Sulfonate (Kayexalate) 45 gm PO NOW ONE Stop: 05/30/20 13:43 Last Admin: 05/30/20 14:02 Dose: Not Given Documented by: Sodium Polystyrene Sulfonate (Kayexalate) 15 gm PO ONETIME ONE Stop: 05/30/20 13:56 Last Admin: 05/30/20 14:24 Dose: 15 gm Documented by: Sodium Polystyrene Sulfonate (Kayexalate) 15 gm PO ONETIME ONE Stop: 05/30/20 19:01 Last Admin: 05/30/20 19:22 Dose: 15 gm Documented by: Sodium Polystyrene Sulfonate (Kayexalate) 15 gm PO ONETIME ONE Stop: 05/31/20 08:01 Last Admin: 05/31/20 08:30 Dose: 15 gm Documented by: Spironolactone (Aldactone) 12.5 mg PO Q12HR [facility] - Exam Quality Assessment: Reports: DVT Prophylaxis General: Reports: Alert, Oriented, Cooperative, No Acute Distress HEENT: Reports: Pupils Equal, Pupils Reactive, EOMI, Mucous Membr. Moist/[place] Neck: Reports: Supple Lungs: Reports: Clear to Auscultation, Normal Respiratory Effort Cardiovascular: Reports: Regular Rate, Regular Rhythm GI/Abdominal Exam: No Distention, Other (mild diffuse discomfort with palpation). No: Guarding, Rigid, Rebound (Female) Exam: Deferred Rectal (Female) Exam: Deferred Back Exam: Denies: CVA Tenderness (L), CVA Tenderness (R), Muscle Spasm Extremities: Non-Tender, Normal Capillary Refill, Pedal Edema Skin: Reports: Warm, Rash (tommy-area) Neurological: Reports: No New Focal Deficit Psy/Mental Status: Reports: Alert, Normal Affect, Normal Mood
[2020-06-04] MEDS ORDERED: Insulin Lispro 100 Units/ML 3 ML Vial SUBCUT SCH (12:00)
[2020-06-05] MEDS ORDERED: Insulin Glarg,Human.Rec.Analog 100 Unit/ML SUBCUT SCH (08:00)
== END 2020-06-04 12:39 | disposition swing bed (61) | DRG 372 ==
LOC: LL.ED 11:54 → LL.MS 13:10
PROVIDERS: ADMIT Emergency Medicine; ATTEND Emergency Medicine
DX: A04.72 Enterocolitis due to Clostridium difficile, not specified as recurrent (principal); N30.00 Acute cystitis without hematuria; N18.4 Chronic kidney disease, stage 4 (severe); I42.9 Cardiomyopathy, unspecified; N17.9 Acute kidney failure, unspecified; I13.0 Hypertensive heart and chronic kidney disease with heart failure and stage 1 through stage 4 chronic kidney disease, or unspecified chronic kidney disease; E87.5 Hyperkalemia; R11.2 Nausea with vomiting, unspecified; E86.0 Dehydration; A09 Infectious gastroenteritis and colitis, unspecified; B35.6 Tinea cruris; E11.21 Type 2 diabetes mellitus with diabetic nephropathy; D63.1 Anemia in chronic kidney disease; I50.9 Heart failure, unspecified; J43.1 Panlobular emphysema; I25.10 Atherosclerotic heart disease of native coronary artery without angina pectoris; E83.39 Other disorders of phosphorus metabolism; H91.90 Unspecified hearing loss, unspecified ear; H54.7 Unspecified visual loss; H91.13 Presbycusis, bilateral; N18.9 Chronic kidney disease, unspecified; I50.42 Chronic combined systolic (congestive) and diastolic (congestive) heart failure; H40.9 Unspecified glaucoma; E78.00 Pure hypercholesterolemia, unspecified; I27.20 Pulmonary hypertension, unspecified; K52.9 Noninfective gastroenteritis and colitis, unspecified; R32 Unspecified urinary incontinence; M19.90 Unspecified osteoarthritis, unspecified site; G89.29 Other chronic pain; M54.2 Cervicalgia; M81.0 Age-related osteoporosis without current pathological fracture; I42.8 Other cardiomyopathies; Z98.49 Cataract extraction status, unspecified eye; I34.0 Nonrheumatic mitral (valve) insufficiency; J44.9 Chronic obstructive pulmonary disease, unspecified; Z87.01 Personal history of pneumonia (recurrent); Z90.89 Acquired absence of other organs; Z90.49 Acquired absence of other specified parts of digestive tract; Z90.710 Acquired absence of both cervix and uterus; K59.09 Other constipation; K21.9 Gastro-esophageal reflux disease without esophagitis; K44.9 Diaphragmatic hernia without obstruction or gangrene; E11.22 Type 2 diabetes mellitus with diabetic chronic kidney disease; E11.42 Type 2 diabetes mellitus with diabetic polyneuropathy; Z88.6 Allergy status to analgesic agent; Z79.82 Long term (current) use of aspirin; Z79.4 Long term (current) use of insulin; Z99.81 Dependence on supplemental oxygen; Z79.51 Long term (current) use of inhaled steroids; Z79.899 Other long term (current) drug therapy; Z20.822 Contact with and (suspected) exposure to COVID-19
CPT/HCPCS: 36415; 51701; 74022; 80048; 80053; 81001; 82962; 83605; 83735; 84100; 84132; 84550; 85025; 87045; 87046; 87086; 87088; 87186; 87493; 93005; 94640; 94761; 96374; 97161-GP; 97165-GO; 97530-GP; 99223; 99232; 99233; 99238; 99285-25; A9270-GY; C9113; J0696; J0780; J1650; J1815-GY; J1940; J2405; J7030; J7620-GY; U0002

== ENCOUNTER 2020-06-04 08:46 | Inpatient (IN) | payer MEDICARE, OTHER ==
[2020-06-04] MEDS ORDERED: Albuterol 6.7 GM Inhaler INH PRN (12:17)
[2020-06-04] MEDS ORDERED: Glucagon,Human Recombinant 1 MG Vial IM PRN ×2 (12:17→12:25)
[2020-06-04] MEDS ORDERED: Sodium Chloride 0.9% 10 ML Syringe FLUSH PRN (12:17)
[2020-06-04] MEDS ORDERED: 50% Dextrose in Water 50 ML Syringe IV PRN ×2 (12:17→12:25)
[2020-06-04] MEDS ORDERED: Bisacodyl 10 MG Supp RECTAL PRN (12:17)
[2020-06-04] MEDS: metroNIDAZOLE 500 MG Tab PO SCH ×2 (14:35→19:52)
[2020-06-04] MEDS: Enoxaparin 30 MG/0.3 ML Syringe SUBCUT SCH (14:35)
[2020-06-04] MEDS: Albuterol/Ipratropium 3.0-0.5 MG/3 ML Neb Soln NEB SCH ×2 (15:45→19:59)
[2020-06-04] MEDS: Carvedilol 12.5 MG Tab PO SCH (17:21)
[2020-06-04] MEDS: Ferrous Sulfate 325 MG Tab PO SCH (17:21)
[2020-06-04] MEDS: Formoterol/Mometasone 200-5 MCG 8.8 GM Inhaler IH SCH (17:22)
[2020-06-04] MEDS: Insulin Lispro 100 Units/ML 3 ML Vial SUBCUT SCH (17:23)
[2020-06-04] MEDS: Dorzolamide 2% Ophth Soln 10 ML Bottle EYEBOTH SCH (17:24)
[2020-06-04] MEDS: Clotrimazole 1% Crm 30 GM Tube TOP SCH (17:25)
[2020-06-04] MEDS ORDERED: Furosemide 40 MG/4 ML VIAL IVPUSH SCH (18:00)
[2020-06-04] MEDS: Calcium Carbonate 750 MG Tab.Chew PO SCH (19:51)
[2020-06-04] MEDS: Sulfamethoxazole/Trimethoprim 800-160 MG Tab PO SCH (19:52)
[2020-06-04] MEDS: atorvaSTATin 40 MG Tab PO SCH (19:53)
[2020-06-04] MEDS: Ondansetron 4 MG/2 ML SDV IVPUSH PRN (19:54)
[2020-06-04] MEDS: Sodium Chloride 0.9% 10 ML Syringe FLUSH PRN (19:55)
[2020-06-04] MEDS: Latanoprost 0.005% Ophth Soln 2.5 ML Bottle EYEBOTH SCH (19:59)
[2020-06-04] MEDS ORDERED: GI Cocktail Oral Solution 30 ML PO ONE (21:22)
[2020-06-04] MEDS ORDERED: Calcium Carbonate 500 MG Tab.Chew PO PRN (21:24)
[2020-06-04] MEDS: Prochlorperazine 10 MG/2 ML SDV IVPUSH PRN (22:50)
[2020-06-05] MEDS: metroNIDAZOLE 500 MG Tab PO SCH ×4 (04:17→20:31)
[2020-06-05] MEDS: Sulfamethoxazole/Trimethoprim 800-160 MG Tab PO SCH ×3 (04:19→20:23)
[2020-06-05] MEDS: atorvaSTATin 40 MG Tab PO SCH ×2 (04:20→20:24)
[2020-06-05] MEDS: Carvedilol 25 MG Tab PO SCH (07:50)
[2020-06-05] MEDS: Fluconazole 100 MG Tab PO SCH (07:50)
[2020-06-05] MEDS: Magnesium Oxide 400 MG Tab PO SCH (07:51)
[2020-06-05] MEDS: Aspirin 81 MG Tab.EC PO SCH (07:51)
[2020-06-05] MEDS: Bumetanide 1 MG Tab PO SCH (07:51)
[2020-06-05] MEDS: Albuterol/Ipratropium 3.0-0.5 MG/3 ML Neb Soln NEB SCH ×4 (07:51→20:23)
[2020-06-05] MEDS: Pantoprazole 40 MG Vial IVPUSH SCH (07:51)
[2020-06-05] MEDS: Sodium Chloride 0.9% 10 ML Syringe FLUSH PRN (07:52)
[2020-06-05] MEDS: Insulin Lispro 100 Units/ML 3 ML Vial SUBCUT SCH ×3 (07:52→17:55)
[2020-06-05] MEDS: Clotrimazole 1% Crm 30 GM Tube TOP SCH ×2 (07:55→17:55)
[2020-06-05] MEDS: Formoterol/Mometasone 200-5 MCG 8.8 GM Inhaler IH SCH ×2 (07:55→17:54)
[2020-06-05] MEDS: Ferrous Sulfate 325 MG Tab PO SCH (07:55)
[2020-06-05] MEDS: Dorzolamide 2% Ophth Soln 10 ML Bottle EYEBOTH SCH ×2 (07:56→17:56)
[2020-06-05] MEDS ORDERED: Pantoprazole 40 MG Vial IVPUSH SCH (08:00)
[2020-06-05] MEDS: Enoxaparin 30 MG/0.3 ML Syringe SUBCUT SCH (16:18)
[2020-06-05] MEDS: Carvedilol 12.5 MG Tab PO SCH (17:53)
[2020-06-05] MEDS: Latanoprost 0.005% Ophth Soln 2.5 ML Bottle EYEBOTH SCH (20:24)
[2020-06-05] MEDS: Calcium Carbonate 750 MG Tab.Chew PO SCH (20:24)
[2020-06-06] MEDS: Acetaminophen 325 MG Tab PO PRN ×2 (04:03→16:36)
[2020-06-06] MEDS: Sodium Chloride 0.9% 10 ML Syringe FLUSH PRN (07:29)
[2020-06-06] MEDS: Albuterol/Ipratropium 3.0-0.5 MG/3 ML Neb Soln NEB SCH ×4 (07:29→21:09)
[2020-06-06] MEDS: Ondansetron 4 MG/2 ML SDV IVPUSH PRN (07:29)
[2020-06-06] MEDS: Pantoprazole 40 MG Vial IVPUSH SCH (07:29)
[2020-06-06] MEDS: metroNIDAZOLE 500 MG Tab PO SCH ×3 (07:34→21:10)
[2020-06-06] MEDS: Bumetanide 1 MG Tab PO SCH (07:34)
[2020-06-06] MEDS: Aspirin 81 MG Tab.EC PO SCH (07:34)
[2020-06-06] MEDS: Fluconazole 100 MG Tab PO SCH (07:34)
[2020-06-06] MEDS: Carvedilol 25 MG Tab PO SCH (07:35)
[2020-06-06] MEDS: Formoterol/Mometasone 200-5 MCG 8.8 GM Inhaler IH SCH ×2 (07:35→17:36)
[2020-06-06] MEDS: Magnesium Oxide 400 MG Tab PO SCH (07:35)
[2020-06-06] MEDS: Clotrimazole 1% Crm 30 GM Tube TOP SCH ×2 (07:36→17:36)
[2020-06-06] MEDS: Insulin Lispro 100 Units/ML 3 ML Vial SUBCUT SCH ×3 (07:36→17:36)
[2020-06-06] MEDS: Dorzolamide 2% Ophth Soln 10 ML Bottle EYEBOTH SCH ×2 (07:37→17:37)
[2020-06-06] MEDS: Enoxaparin 30 MG/0.3 ML Syringe SUBCUT SCH (15:45)
[2020-06-06] MEDS: Carvedilol 12.5 MG Tab PO SCH (17:35)
[2020-06-06] MEDS: Calcium Carbonate 750 MG Tab.Chew PO SCH (21:10)
[2020-06-06] MEDS: Diclofenac Sodium 1% Gel 100 GM Tube TOP PRN (21:10)
[2020-06-06] MEDS: Latanoprost 0.005% Ophth Soln 2.5 ML Bottle EYEBOTH SCH (21:10)
[2020-06-06] MEDS: atorvaSTATin 40 MG Tab PO SCH (21:10)
[2020-06-07] MEDS: Temazepam 15 MG Cap PO PRN ×2 (00:17→23:08)
[2020-06-07] MEDS: Prochlorperazine 10 MG/2 ML SDV IVPUSH PRN (01:18)
[2020-06-07] MEDS: Sodium Chloride 0.9% 10 ML Syringe FLUSH PRN ×2 (01:19→08:24)
[2020-06-07] MEDS: Pantoprazole 40 MG Vial IVPUSH SCH (08:24)
[2020-06-07] MEDS: Bumetanide 1 MG Tab PO SCH (08:25)
[2020-06-07] MEDS: Albuterol/Ipratropium 3.0-0.5 MG/3 ML Neb Soln NEB SCH ×4 (08:25→19:15)
[2020-06-07] MEDS: metroNIDAZOLE 500 MG Tab PO SCH ×3 (08:25→19:14)
[2020-06-07] MEDS: Magnesium Oxide 400 MG Tab PO SCH (08:25)
[2020-06-07] MEDS: Carvedilol 25 MG Tab PO SCH (08:25)
[2020-06-07] MEDS: Fluconazole 100 MG Tab PO SCH (08:25)
[2020-06-07] MEDS: Aspirin 81 MG Tab.EC PO SCH (08:25)
[2020-06-07] MEDS: Formoterol/Mometasone 200-5 MCG 8.8 GM Inhaler IH SCH ×2 (08:28→17:29)
[2020-06-07] MEDS: Insulin Lispro 100 Units/ML 3 ML Vial SUBCUT SCH ×2 (08:30→17:30)
[2020-06-07] MEDS: Clotrimazole 1% Crm 30 GM Tube TOP SCH ×2 (08:31→17:28)
[2020-06-07] MEDS: Dorzolamide 2% Ophth Soln 10 ML Bottle EYEBOTH SCH ×2 (08:32→17:32)
--- NOTE | 2020-06-07 08:55 | PCM.PN ---
- General Info Date of Service: 06/07/20 Admission Dx/Problem (Free Text): 1. Diabetic nephropathy with recent acute renal failure 2. C. difficile colitis 3. Generalized weakness 4. COPD 5. CHF Functional Status: Reports: Pain Controlled, Tolerating Diet, Ambulating, Urinating (Some incontinence), New Symptoms (Mild nonspecific nausea during the last couple of days however resolved this morning. Only minimal stable by history chronic arthritic complaints also improving this morning.), Incentive Spirometry Pain Score: 0 - Review of Systems General: Reports: Weakness (Improving slowly with PT). Denies: Fever, Fatigue, Malaise, Chills, Night Sweats, Appetite (Good) HEENT: Reports: Glasses. Denies: Dysphasia, Ear Pain, Eye Pain, Headaches, Post Nasal Drip, Sinus Congestion, Sore Throat, Rhinitis, Visual Changes Pulmonary: Reports: No Symptoms. Denies: Shortness of Breath, Pleuritic Chest Pain, Cough, Sputum, Wheezing Cardiovascular: Reports: No Symptoms. Denies: Chest Pain, Palpitations, Dyspnea on Exertion, Orthopnea, PND, Edema, Lightheadedness Gastrointestinal: Reports: No Symptoms. Denies: Abdominal Pain, Constipation, Decreased Appetite, Diarrhea (In spite of C. difficile colitis currently under therapy), Difficulty Swallowing, Flatus, Hematochezia, Melena, Nausea (None this morning but some yesterday with Compazine given), Vomiting Genitourinary: Reports: Incontinence. Denies: Dysuria, Frequency, Burning, Pain, Urgency, Hematuria, Retention, Flank Pain Musculoskeletal: Reports: No Symptoms. Denies: Neck Pain, Shoulder Pain (Resolved this morning), Arm Pain, Back Pain, Leg Pain Skin: Reports: No Symptoms. Denies: Diaphoresis, Bruising, Rash Neurological: Reports: Numbness (Stable diabetic neuropathy), Paresthesia (As above), Tingling (As above), Difficulty Walking (Uses walker chair), Weakness (Improving slowly as above). Denies: Confusion, Headache, Seizure, Gait Disturbance Psychiatric: Reports: No Symptoms. Denies: Confusion, Depression, Agitation, Cravings, Hallucinations - Patient Data Vitals - Most Recent: Last Vital Signs Temp 36.6 C 06/06/20 19:33 Pulse 76 06/07/20 08:25 Resp 20 06/06/20 19:33 BP 139/87 06/07/20 08:25 Pulse Ox 97 06/06/20 19:33 Vital Signs (72 hours) 06/04/20 06/04/20 06/04/20 17:21 19:27 20:38 Temperature [ 36.6 C Oral] Pulse, 0 L Peripheral Pulse, 80 Peripheral [ Right Pulse Oximetry] Respiratory 16 Rate Blood Pressure 0/0 L Blood Pressure 145/104 H 131/78 [Left Upper Arm ] O2 Sat by Pulse 95 Oximetry 06/05/20 06/05/20 06/05/20 07:32 07:50 17:53 Temperature [ 36.3 C Oral] Pulse, 67 74 Peripheral Pulse, 67 Peripheral [ Right Pulse Oximetry] Respiratory 20 Rate Blood Pressure 144/93 H 124/68 Blood Pressure 144/93 H [Left Upper Arm ] O2 Sat by Pulse 98 Oximetry 06/05/20 06/05/20 06/06/20 17:57 20:00 07:35 Temperature [ 36.6 C 36.6 C Oral] Pulse, 70 Peripheral Pulse, 74 75 Peripheral [ Right Pulse Oximetry] Respiratory 20 18 Rate Blood Pressure 130/72 Blood Pressure 124/68 137/78 [Left Upper Arm ] O2 Sat by Pulse 96 96 Oximetry 06/06/20 06/06/20 06/06/20 07:40 16:46 17:35 Temperature [ 36.4 C 36.6 C Oral] Pulse, 67 Peripheral Pulse, 70 67 Peripheral [ Right Pulse Oximetry] Respiratory 18 20 Rate Blood Pressure 123/70 Blood Pressure 130/72 130/72 [Left Upper Arm ] O2 Sat by Pulse 98 96 Oximetry 06/06/20 06/07/20 19:33 08:25 Temperature [ 36.6 C Oral] Pulse, 76 Peripheral Pulse, 79 Peripheral [ Right Pulse Oximetry] Respiratory 20 Rate Blood Pressure 139/87 Blood Pressure 124/70 [Left Upper Arm ] O2 Sat by Pulse 97 Oximetry Weight - Most Recent: 75.296 kg I&O - Last 24 Hours: Intake & Output 06/06/20 06/07/20 06/07/20 22:59 06:59 14:59 Intake Total 400 Output Total 400 Balance 0 Imaging Impressions - Last 24 Hours: None Lab Results Last 24 Hours: Laboratory Results - last 24 hr 06/06/20 06/06/20 06/06/20 Range/Units 12:22 16:41 21:09 WBC (4.0-10.2) K/uL RBC (3.77-5.09) M/uL Hgb (11.7-15.5) g/dL Hct (34.0-46.0) % MCV (84.0-98.0) fL MCH (28.2-33.3) pg MCHC (31.7-36.0) g/dL RDW (11.2-14.1) % Plt Count (150-350) K/uL Neut % (Auto) (45.0-80.0) % Lymph % (Auto) (10.0-50.0) % [place] % (Auto) (2.0-14.0) % Eos % (Auto) (0.0-5.0) % Baso % (Auto) (0.0-2.0) % Neut # (Auto) (1.40-7.00) K/uL Lymph # (Auto) (0.50-3.50) K/uL [place] # (Auto) (0.00-1.00) K/uL Eos # (Auto) (0.00-0.50) K/uL Baso # (Auto) (0.00-0.20) K/uL Sodium (136-145) mmol/L Potassium (3.5-5.1) mmol/L Chloride (98-107) mmol/L Carbon Dioxide (21.0-32.0) mmol/L BUN (7-18) mg/dL Creatinine (0.51-1.17) mg/dL Est Cr Clr Drug Dosing mL/min Estimated GFR (MDRD) mL/min Glucose (70-99) mg/dL POC Glucose 143 H 116 H 144 H (65-110) mg/dl Calcium (8.5-10.1) mg/dL Magnesium (1.8-2.4) mg/dL 06/07/20 06/07/20 06/07/20 Range/Units 07:10 07:10 07:12 WBC 7.5 (4.0-10.2) K/uL RBC 3.15 L (3.77-5.09) M/uL Hgb 9.5 L (11.7-15.5) g/dL Hct 30.6 L (34.0-46.0) % MCV 97.1 (84.0-98.0) fL MCH 30.2 (28.2-33.3) pg MCHC 31.0 L (31.7-36.0) g/dL RDW 13.3 (11.2-14.1) % Plt Count 136 L (150-350) K/uL Neut % (Auto) 48.7 (45.0-80.0) % Lymph % (Auto) 36.7 (10.0-50.0) % [place] % (Auto) 10.6 (2.0-14.0) % Eos % (Auto) 3.5 (0.0-5.0) % Baso % (Auto) 0.5 (0.0-2.0) % Neut # (Auto) 3.64 (1.40-7.00) K/uL Lymph # (Auto) 2.74 (0.50-3.50) K/uL [place] # (Auto) 0.79 (0.00-1.00) K/uL Eos # (Auto) 0.26 (0.00-0.50) K/uL Baso # (Auto) 0.04 (0.00-0.20) K/uL Sodium 144 (136-145) mmol/L Potassium 4.2 (3.5-5.1) mmol/L Chloride 110 H (98-107) mmol/L Carbon Dioxide 25.9 (21.0-32.0) mmol/L BUN 51 H (7-18) mg/dL Creatinine 2.91 H (0.51-1.17) mg/dL Est Cr Clr Drug Dosing 11.50 mL/min Estimated GFR (MDRD) 16 mL/min Glucose 136 H (70-99) mg/dL POC Glucose 125 H (65-110) mg/dl Calcium 8.2 L (8.5-10.1) mg/dL Magnesium 1.9 (1.8-2.4) mg/dL Pool Results Last 24 Hours: None Med Orders - Current: Current Medications Acetaminophen (Acetaminophen 325 Mg Tab) 650 mg PO Q4H PRN PRN Reason: analgesia/fever Last Admin: 06/06/20 16:36 Dose: 650 mg Documented by: Albuterol (Albuterol 6.7 Gm Inhaler) 1 gm INH Q2H PRN PRN Reason: Shortness of Breath Albuterol/Ipratropium (Albuterol/Ipratropium 3.0-0.5 Mg/3 Ml Neb Soln) 3 ml NEB QIDRT [facility] Last Admin: 06/07/20 08:25 Dose: 3 ml Documented by: Aspirin (Aspirin 81 Mg Tab.Ec) 81 mg PO DAILY [facility] Last Admin: 06/07/20 08:25 Dose: 81 mg Documented by: Atorvastatin Calcium (Atorvastatin 40 Mg Tab) 40 mg PO BEDTIME [facility] Last Admin: 06/06/20 21:10 Dose: 40 mg Documented by: Bisacodyl (Bisacodyl 10 Mg Supp) 10 mg RECTAL DAILY PRN PRN Reason: Constipation Bumetanide (Bumetanide 1 Mg Tab) 1 mg PO DAILY [facility] Last Admin: 06/07/20 08:25 Dose: 1 mg Documented by: Calcium Carbonate/Glycine (Calcium Carbonate 750 Mg Tab.Chew) 1,500 mg PO BEDTIME [facility] Last Admin: 06/06/20 21:10 Dose: 1,500 mg Documented by: Calcium Carbonate/Glycine (Calcium Carbonate 500 Mg Tab.Chew) 1,000 mg PO Q2HR PRN PRN Reason: Indigestion Carvedilol (Carvedilol 12.5 Mg Tab) 12.5 mg PO QPM [facility] Last Admin: 06/06/20 17:35 Dose: 12.5 mg Documented by: Carvedilol (Carvedilol 25 Mg Tab) 25 mg PO QAM [facility] Last Admin: 06/07/20 08:25 Dose: 25 mg Documented by: Clotrimazole (Clotrimazole 1% Crm 30 Gm Tube) 1 gm TOP BID [facility] Last Admin: 06/07/20 08:31 Dose: 1 applic Documented by: Dextrose/Water (50% Dextrose In Water 50 Ml Syringe) 50 ml IV ASDIRECTED PRN PRN Reason: Hypoglycemia Diclofenac Sodium (Diclofenac Sodium 1% Gel 100 Gm Tube) 1 gm TOP QID PRN PRN Reason: Pain Last Admin: 06/06/20 21:10 Dose: 1 applic Documented by: Dorzolamide HCl (Dorzolamide 2% Ophth Soln 10 Ml Bottle) 1 ml EYEBOTH BID [facility] Last Admin: 06/07/20 08:32 Dose: 1 drop Documented by: Fluconazole (Fluconazole 100 Mg Tab) 100 mg PO DAILY [facility] Stop: 06/07/20 18:01 Last Admin: 06/07/20 08:25 Dose: 100 mg Documented by: Glucagon (Glucagon,Human Recombinant 1 Mg Vial) 1 mg IM ASDIRECTED PRN PRN Reason: Hypoglycemia Insulin Human Lispro (Insulin Lispro 100 Units/Ml 3 Ml Vial) 0 unit SUBCUT TID [facility]; Protocol Last Admin: 06/07/20 08:30 Dose: Not Given Documented by: Latanoprost (Latanoprost 0.005% Ophth Soln 2.5 Ml Bottle) 1 ml EYEBOTH BEDTIME [facility] Last Admin: 06/06/20 21:10 Dose: 1 drop Documented by: Magnesium Oxide (Magnesium Oxide 400 Mg Tab) 400 mg PO DAILY [facility] Last Admin: 06/07/20 08:25 Dose: 400 mg Documented by: Metronidazole (Metronidazole 500 Mg Tab) 500 mg PO TID@0800,1400,2000 [facility] Stop: 06/11/20 08:01 Last Admin: 06/07/20 08:25 Dose: 500 mg Documented by: Mometasone Furoate/Formoterol Fumar (Formoterol/Mometasone 200-5 Mcg 8.8 Gm Inhaler) 1 puff IH BID [facility] Last Admin: 06/07/20 08:28 Dose: 1 puff Documented by: Nitroglycerin (Nitroglycerin 0.4 Mg Tab.Sl) 0.4 mg SL ASDIRECTED PRN PRN Reason: Chest Pain Ondansetron HCl (Ondansetron 4 Mg/2 Ml Sdv) 4 mg IVPUSH Q6H PRN PRN Reason: Nausea/Vomiting Last Admin: 06/06/20 07:29 Dose: 4 mg Documented by: Pantoprazole Sodium (Pantoprazole 40 Mg Vial) 40 mg IVPUSH DAILY [facility] Last Admin: 06/07/20 08:24 Dose: 40 mg Documented by: Prochlorperazine Edisylate (Prochlorperazine 10 Mg/2 Ml Sdv) 5 mg IVPUSH Q8H PRN PRN Reason: Nausea Last Admin: 06/07/20 01:18 Dose: 5 mg Documented by: Sodium Chloride (Sodium Chloride 0.9% 10 Ml Syringe) 10 ml FLUSH ASDIRECTED PRN PRN Reason: Keep Vein Open Last Admin: 06/07/20 08:24 Dose: 10 ml Documented by: Temazepam (Temazepam 15 Mg Cap) 15 mg PO BEDTIME PRN PRN Reason: Insomnia Last Admin: 06/07/20 00:17 Dose: 15 mg Documented by: Discontinued Medications Al Hydroxide/Mg Hydroxide (Gi Cocktail Oral Solution 30 Ml) 30 ml PO ONETIME ONE Stop: 06/04/20 21:23 Last Admin: 06/04/20 22:12 Dose: 30 ml Documented by: Dextrose/Water (50% Dextrose In Water 50 Ml Syringe) 50 ml IV ASDIRECTED PRN PRN Reason: Hypoglycemia Dextrose/Water (50% Dextrose In Water 50 Ml Syringe) 50 ml IV ASDIRECTED PRN PRN Reason: Hypoglycemia Enoxaparin Sodium (Enoxaparin 30 Mg/0.3 Ml Syringe) 30 mg SUBCUT Q24H [facility] Last Admin: 06/06/20 15:45 Dose: 30 mg Documented by: Ferrous Sulfate (Ferrous Sulfate 325 Mg Tab) 325 mg PO BID [facility] Last Admin: 06/05/20 07:55 Dose: Not Given Documented by: Furosemide (Furosemide 40 Mg/4 Ml Vial) 40 mg IVPUSH BID [facility] Glucagon (Glucagon,Human Recombinant 1 Mg Vial) 1 mg IM ASDIRECTED PRN PRN Reason: Hypoglycemia Pantoprazole Sodium (Pantoprazole 40 Mg Vial) 40 mg IVPUSH DAILY [facility] Sodium Chloride (Sodium Chloride 0.9% 10 Ml Syringe) 10 ml FLUSH ASDIRECTED PRN PRN Reason: Keep Vein Open Trimethoprim/Sulfamethoxazole (Sulfamethoxazole/Trimethoprim 800-160 Mg Tab) 0.5 tab PO Q12HR [facility] Stop: 06/05/20 20:01 Last Admin: 06/05/20 20:23 Dose: 0.5 tab Documented by: - Exam Quality Assessment: DVT Prophylaxis (Lovenox to be discontinued today with patient back at her normal activity level). No: Supplemental Oxygen, Central Line/PICC, Urine Catheter, Skin Breakdown, Restraints General: Alert, Oriented, Cooperative, No Acute Distress HEENT: Pupils Equal, Pupils Reactive, EOMI, Mucous Membr. Moist/[place]. No: Scleral Icterus Neck: Supple, Trachea Midline, No JVD, No Thyromegaly, Carotid Bruit (Mild bilateral carotid bruits), Thyromegaly. No: Lymphadenopathy Lungs: Clear to Auscultation, Normal Respiratory Effort. No: Rhonchi, Rub, Wheezing Cardiovascular: Regular Rate, Regular Rhythm, No Murmurs. No: Gallops, Rubs GI/Abdominal Exam: Normal Bowel Sounds, Soft, Non-Tender, No Organomegaly, No Distention, No Abnormal Bruit, No Mass, Other (Obese). No: Guarding (Female) Exam: Deferred Back Exam: Full Range of Motion, Other (Mild kyphoscoliosis). No: CVA Tenderness (L), CVA Tenderness (R), Decreased Range of Motion, Muscle Spasm, Paraspinal Tenderness Extremities: Normal Inspection, Normal Range of Motion, Non-Tender, No Pedal Edema, Normal Capillary Refill. No: Charlee's Sign Peripheral Pulses: 2+: Radial (L), Radial (R), Dorsalis Pedis (L), Dorsalis Pedis (R) Skin: Warm, Dry, Intact Neurological: No New Focal Deficit, Other (Stable generalized weakness, although improved by history. No clinical orthostasis.) Psy/Mental Status: Alert, Normal Affect, Normal Mood. No: Agitated, Hallucinations, Withdrawal Symptoms - Patient Data Lab Results Last 24 hrs: Laboratory Results - last 24 hr 06/06/20 06/06/20 06/06/20 Range/Units 12:22 16:41 21:09 WBC (4.0-10.2) K/uL RBC (3.77-5.09) M/uL Hgb (11.7-15.5) g/dL Hct (34.0-46.0) % MCV (84.0-98.0) fL MCH (28.2-33.3) pg MCHC (31.7-36.0) g/dL RDW (11.2-14.1) % Plt Count (150-350) K/uL Neut % (Auto) (45.0-80.0) % Lymph % (Auto) (10.0-50.0) % [place] % (Auto) (2.0-14.0) % Eos % (Auto) (0.0-5.0) % Baso % (Auto) (0.0-2.0) % Neut # (Auto) (1.40-7.00) K/uL Lymph # (Auto) (0.50-3.50) K/uL [place] # (Auto) (0.00-1.00) K/uL Eos # (Auto) (0.00-0.50) K/uL Baso # (Auto) (0.00-0.20) K/uL Sodium (136-145) mmol/L Potassium (3.5-5.1) mmol/L Chloride (98-107) mmol/L Carbon Dioxide (21.0-32.0) mmol/L BUN (7-18) mg/dL Creatinine (0.51-1.17) mg/dL Est Cr Clr Drug Dosing mL/min Estimated GFR (MDRD) mL/min Glucose (70-99) mg/dL POC Glucose 143 H 116 H 144 H (65-110) mg/dl Calcium (8.5-10.1) mg/dL Magnesium (1.8-2.4) mg/dL 06/07/20 06/07/20 06/07/20 Range/Units 07:10 07:10 07:12 WBC 7.5 (4.0-10.2) K/uL RBC 3.15 L (3.77-5.09) M/uL Hgb 9.5 L (11.7-15.5) g/dL Hct 30.6 L (34.0-46.0) % MCV 97.1 (84.0-98.0) fL MCH 30.2 (28.2-33.3) pg MCHC 31.0 L (31.7-36.0) g/dL RDW 13.3 (11.2-14.1) % Plt Count 136 L (150-350) K/uL Neut % (Auto) 48.7 (45.0-80.0) % Lymph % (Auto) 36.7 (10.0-50.0) % [place] % (Auto) 10.6 (2.0-14.0) % Eos % (Auto) 3.5 (0.0-5.0) % Baso % (Auto) 0.5 (0.0-2.0) % Neut # (Auto) 3.64 (1.40-7.00) K/uL Lymph # (Auto) 2.74 (0.50-3.50) K/uL [place] # (Auto) 0.79 (0.00-1.00) K/uL Eos # (Auto) 0.26 (0.00-0.50) K/uL Baso # (Auto) 0.04 (0.00-0.20) K/uL Sodium 144 (136-145) mmol/L Potassium 4.2 (3.5-5.1) mmol/L Chloride 110 H (98-107) mmol/L Carbon Dioxide 25.9 (21.0-32.0) mmol/L BUN 51 H (7-18) mg/dL Creatinine 2.91 H (0.51-1.17) mg/dL Est Cr Clr Drug Dosing 11.50 mL/min Estimated GFR (MDRD) 16 mL/min Glucose 136 H (70-99) mg/dL POC Glucose 125 H (65-110) mg/dl Calcium 8.2 L (8.5-10.1) mg/dL Magnesium 1.9 (1.8-2.4) mg/dL Result Diagrams: 06/07/20 07:10 06/07/20 07:10 Sepsis Event Note - Evaluation Sepsis Screening Result: No Definite Risk - Focused Exam Vital Signs: Vital Signs Pulse BP 06/07/20 08:25 76 139/87 - Problem List & Annotations (1) C. difficile colitis SNOMED Code(s): 316807824 Code(s): A04.72 - ENTEROCOLITIS D/T CLOSTRIDIUM DIFFICILE, NOT SPCF RECUR Status: Acute Priority: High Current Visit: Yes Onset Date: ~05/30/20 Annotation/Comment:: Receiving oral Flagyl, which was started during recent inpatient hospitalization in this facility. Note apparent pharmacy consultation with Cara, our pharmacist, and an apparent infectious disease specialist, with decision made to continue with current Flagyl therapy rather than changing to oral vancomycin. Loose stools have resolved with no current diarrhea and last bowel movement yesterday, which was normal. She still has occasional complaints of nausea and abdominal discomfort, however resolved this morning. Consider acute abdominal x-rays prior to discharge depending on clinical course. Intermittent nausea was apparently a chronic issue at home with Compazine given yesterday for her insomnia and nonspecific nausea as above, however this should be used in the future with caution secondary to her current colitis. Suspect an tibiotic treatment she is currently receiving is exacerbating the issue. Continue to observe closely for now. (2) Diabetic nephropathy Status: Chronic Priority: High Current Visit: Yes Qualifiers: Diabetes mellitus type: type 2 Qualified Code(s): E11.21 - Type 2 diabetes mellitus with diabetic nephropathy Annotation/Comment:: Renal function stable with current medical therapy. Her renal function had significantly improved on 06/01 during recent hospitalization after discontinuation of multiple nephrotoxic medications on 05/31 as below. Acute renal failures/exacerbation of her chronic diabetic nephropathy with s ignificant hyperkalemia likely secondary to C-Diff/vomiting/diarrhea with her medical therapy as below, including spironolactone and losartan, as potential contributing factors. (3) Osteoarthritis SNOMED Code(s): 242571234 Code(s): M19.90 - UNSPECIFIED OSTEOARTHRITIS, UNSPECIFIED SITE Status: Chronic Priority: High Current Visit: Yes Qualifiers: Osteoarthritis location: multiple joints Osteoarthritis type: primary Qualified Code(s): M89.49 - Other hypertrophic osteoarthropathy, multiple sites Annotation/Comment:: Note nonspecific generalized weakness with PT and OT in effect with required swing bed care after recent hospitalization as above. Otherwise her arthritis is stable by history with only very occasional shoulder and arthritic complaints improved on 06/07/2020. (4) Recurrent UTI SNOMED Code(s): 381563744 Code(s): N39.0 - URINARY TRACT INFECTION, SITE NOT SPECIFIED Status: Chronic Priority: Medium Current Visit: No Annotation/Comment:: Antibiotic therapy has been completed with Diflucan scheduled to be completed later today. Quick cath UA with culture and sensitivity has been ordered with problems with urinary contamination from previous UA during her acute hospitalization. (5) CHF (congestive heart failure) SNOMED Code(s): 43742939 Code(s): I50.9 - HEART FAILURE, UNSPECIFIED Status: Chronic Priority: High Current Visit: Yes Onset Date: 02/21/17 Qualifiers: Heart failure chronicity: acute on chronic Annotation/Comment:: No chest pain or anginal type symptoms either prior to admission and/or during this swing bed care or previous hospitalization. Note history of complete bifascicular bundle branch block on admission with history of PACs, PVCs, and previous SVT. Note known history of cardiomegaly with echocardiogram last performed on 08/26/18 with an ejection fraction of 45% at that time and history of pulmonary hypertension. Consider repeat echocardiogram once her medical therapy has been determined on an outpatient basis. Note previous problems with intolerance to MONICA inhibitor's and spironolactone with secondary hyperkalemia and renal failure. Medication compliance has also been an issue in the past. Her cardiac function and renal status have been stable with current medical regimen with no further change for the time being. (6) COPD (chronic obstructive pulmonary disease) SNOMED Code(s): 84534048 Code(s): J44.9 - CHRONIC OBSTRUCTIVE PULMONARY DISEASE, UNSPECIFIED Status: Chronic Priority: Medium Current Visit: Yes Qualifiers: COPD type: emphysema Emphysema type: panlobular Qualified Code(s): J43.1 - Panlobular emphysema Annotation/Comment:: No recent fever or bronchitic type symptoms. Continue nebulizer and inhaler therapy as before. (7) Coronary artery disease SNOMED Code(s): 20653584 Code(s): I25.10 - ATHSCL HEART DISEASE OF [place] CORONARY ARTERY W/O ANG PCTRS Status: Chronic Priority: Low Current Visit: Yes Onset Date: 02/22/17 Qualifiers: Coronary Disease-Associated Artery/Lesion type: [place] artery [place] vs. transplanted heart: [place] heart Associated angina: with stable angina Qualified Code(s): I25.118 - Atherosclerotic heart disease of [place] coronary artery with other forms of angina pectoris Annotation/Comment:: As above. (8) Diabetes mellitus SNOMED Code(s): 36520695 Code(s): E11.9 - TYPE 2 DIABETES MELLITUS WITHOUT COMPLICATIONS Status: Chronic Priority: Medium Current Visit: Yes Qualifiers: Diabetes mellitus type: type 2 Diabetes mellitus care home insulin use: with buttermaker helper use Diabetes mellitus complication status: with kidney complications Diabetes mellitus complication detail: with chronic kidney disease Chronic kidney disease stage: stage 4 (severe) Qualified Code(s): E11.22 - Type 2 diabetes mellitus with diabetic chronic kidney disease; N18.4 - Chronic kidney disease, stage 4 (severe); Z79.4 - buttermaker helper (current) use of insulin Annotation/Comment:: Accu-Cheks during her swing bed care have remained stable with no additional insulin required likely secondary to her improved diet during recent hospitalization and current swing bed care. Accu-Cheks will be changed from a current 4 times daily to twice daily, AC, basis with continued close observation after discharge. Note diabetic nephropathy, diabetic neuropathy, etc.. Glycosylated hemoglobin was 5.0% on 06/01/2020. (9) Hypertension SNOMED Code(s): 35663721 Code(s): I10 - ESSENTIAL (PRIMARY) HYPERTENSION Status: Chronic Priority: Medium Current Visit: Yes Qualifiers: Hypertension type: essential hypertension Qualified Code(s): I10 - Essential (primary) hypertension Annotation/Comment:: Stable during this swing bed care and previous hospitalization despite multiple previous medication adjustments as above. (10) Hypocalcemia SNOMED Code(s): 9315885 Code(s): E83.51 - HYPOCALCEMIA Status: Chronic Priority: Medium Current Visit: Yes Onset Date: 03/01/18 Annotation/Comment:: Resumed OTC Tums as calcium supplementation and GI prophylaxis on 05/31/2020. Continue to observe closely for now with persistent mildly decreased calcium level on 06/07/2020. (11) Peptic reflux disease SNOMED Code(s): 998747821 Code(s): K21.9 - GASTRO-ESOPHAGEAL REFLUX DISEASE WITHOUT ESOPHAGITIS Status: Chronic Priority: Medium Current Visit: Yes Annotation/Comment:: Stable by history and during her swing bed care. (12) Tobacco abuse counseling SNOMED Code(s): 111930312, 988009447, 349236732 Code(s): Z71.6 - TOBACCO ABUSE COUNSELING Status: Chronic Priority: Medium Current Visit: Yes Annotation/Comment:: Tobacco smoke exposure was once again extensively discussed with the patient with tobacco cessation information to be provided at discharge. (13) Hypomagnesemia SNOMED Code(s): 777087795 Code(s): E83.42 - HYPOMAGNESEMIA Status: Inactive Priority: Medium Current Visit: No Onset Date: 02/21/17 Annotation/Comment:: Magnesium level normal on 06/07/2020. Continue current medical therapy. Close follow-up by regular provider after discharge secondary to her diabetic nephropathy. (14) Anemia SNOMED Code(s): 421053426 Code(s): D64.9 - ANEMIA, UNSPECIFIED Status: Chronic Priority: Medium Current Visit: Yes Onset Date: 02/27/18 Qualifiers: Anemia type: iron deficiency Annotation/Comment:: Hemoglobin stable on 06/07 and 06/01/2028 during recent hospitalization. Note significant progression of her anemia during that hospitalization admission likely secondary to rehydration effect with hemoglobin of 9.8 on 05/31 in comparison to 12.4 on admission. Long history of iron deficiency anemia with iron supplement reinitiated on 05/31/20. Continue to observe closely on an outpatient basis with repeat blood work recommended prior to discharge from swing bed. Note chronic renal insufficiency. - Problem List Review Problem List Initiated/Reviewed/Updated: Yes - My Orders Last 24 Hours: My Active Orders 06/07/20 Breakfast Fluid Restriction [DIET] 06/07/20 08:37 CULTURE URINE [RM] Routine URINALYSIS W/MICROSCOPIC [UA W/MICROSCOPIC] [URIN] Routine - Assessment Assessment:: As above - Plan Plan:: As above. Extensive precautions were given to the patient, who is in agreement with the treatment plan. Continue current medical therapy as above with [facility] physician to resume care tomorrow. Possible discharge from swing bed later this week depending on progress and based on PT/OT recommendations.
[2020-06-07] MEDS: Diclofenac Sodium 1% Gel 100 GM Tube TOP PRN ×2 (13:07→19:15)
[2020-06-07] MEDS: Carvedilol 12.5 MG Tab PO SCH (17:30)
[2020-06-07] MEDS: Ferrous Sulfate 325 MG Tab PO SCH (17:30)
[2020-06-07] MEDS: Calcium Carbonate 750 MG Tab.Chew PO SCH (19:14)
[2020-06-07] MEDS: atorvaSTATin 40 MG Tab PO SCH (19:14)
[2020-06-07] MEDS: Latanoprost 0.005% Ophth Soln 2.5 ML Bottle EYEBOTH SCH (19:15)
[2020-06-08] MEDS: Pantoprazole 40 MG Vial IVPUSH SCH (08:23)
[2020-06-08] MEDS: Aspirin 81 MG Tab.EC PO SCH (08:24)
[2020-06-08] MEDS: Ferrous Sulfate 325 MG Tab PO SCH ×2 (08:24→16:44)
[2020-06-08] MEDS: Bumetanide 1 MG Tab PO SCH (08:24)
[2020-06-08] MEDS: Magnesium Oxide 400 MG Tab PO SCH (08:24)
[2020-06-08] MEDS: Carvedilol 25 MG Tab PO SCH (08:25)
[2020-06-08] MEDS: Insulin Lispro 100 Units/ML 3 ML Vial SUBCUT SCH ×2 (08:25→17:20)
[2020-06-08] MEDS: metroNIDAZOLE 500 MG Tab PO SCH ×3 (08:25→19:11)
[2020-06-08] MEDS: Formoterol/Mometasone 200-5 MCG 8.8 GM Inhaler IH SCH ×2 (08:26→17:21)
[2020-06-08] MEDS: Albuterol/Ipratropium 3.0-0.5 MG/3 ML Neb Soln NEB SCH ×4 (08:26→19:11)
[2020-06-08] MEDS: Clotrimazole 1% Crm 30 GM Tube TOP SCH ×2 (08:26→17:21)
[2020-06-08] MEDS: Diclofenac Sodium 1% Gel 100 GM Tube TOP PRN (08:27)
[2020-06-08] MEDS: Dorzolamide 2% Ophth Soln 10 ML Bottle EYEBOTH SCH ×2 (08:27→17:21)
[2020-06-08] MEDS: Docusate Sodium 100 MG Cap PO PRN (11:16)
[2020-06-08] MEDS: Enoxaparin 30 MG/0.3 ML Syringe SUBCUT SCH (13:05)
[2020-06-08] MEDS: Acetaminophen 325 MG Tab PO PRN (13:19)
[2020-06-08] MEDS: Carvedilol 12.5 MG Tab PO SCH (17:18)
[2020-06-08] MEDS: atorvaSTATin 40 MG Tab PO SCH (19:12)
[2020-06-08] MEDS: Latanoprost 0.005% Ophth Soln 2.5 ML Bottle EYEBOTH SCH (19:12)
[2020-06-08] MEDS: Calcium Carbonate 750 MG Tab.Chew PO SCH (19:12)
[2020-06-09] MEDS: Dorzolamide 2% Ophth Soln 10 ML Bottle EYEBOTH SCH ×2 (07:41→17:08)
[2020-06-09] MEDS: Formoterol/Mometasone 200-5 MCG 8.8 GM Inhaler IH SCH ×2 (07:41→17:06)
[2020-06-09] MEDS: Sodium Chloride 0.9% 10 ML Syringe FLUSH PRN (07:42)
[2020-06-09] MEDS: Pantoprazole 40 MG Vial IVPUSH SCH ×2 (07:42→07:51)
[2020-06-09] MEDS: Diclofenac Sodium 1% Gel 100 GM Tube TOP PRN ×3 (07:45→20:16)
[2020-06-09] MEDS: Albuterol/Ipratropium 3.0-0.5 MG/3 ML Neb Soln NEB SCH ×4 (07:48→20:15)
[2020-06-09] MEDS: Acetaminophen 325 MG Tab PO PRN ×3 (07:49→17:04)
[2020-06-09] MEDS: Insulin Lispro 100 Units/ML 3 ML Vial SUBCUT SCH ×2 (07:49→17:09)
[2020-06-09] MEDS: Magnesium Oxide 400 MG Tab PO SCH (07:50)
[2020-06-09] MEDS: Bumetanide 1 MG Tab PO SCH (07:50)
[2020-06-09] MEDS: Aspirin 81 MG Tab.EC PO SCH (07:50)
[2020-06-09] MEDS: metroNIDAZOLE 500 MG Tab PO SCH ×3 (07:50→20:15)
[2020-06-09] MEDS: Carvedilol 25 MG Tab PO SCH (07:50)
[2020-06-09] MEDS: Ferrous Sulfate 325 MG Tab PO SCH ×2 (07:50→17:03)
[2020-06-09] MEDS: Clotrimazole 1% Crm 30 GM Tube TOP SCH (07:51)
[2020-06-09] MEDS ORDERED: Ondansetron 4 MG Tab.DIS PO PRN (07:53)
[2020-06-09] MEDS: Docusate Sodium 100 MG Cap PO PRN (07:58)
[2020-06-09] MEDS ORDERED: Clotrimazole 1% Crm 30 GM Tube TOP PRN (08:19)
[2020-06-09] MEDS: Nystatin Crm 30 GM Tube TOP SCH ×3 (13:02→20:17)
[2020-06-09] MEDS: Triamcinolone Acetonide 0.5% Crm 15 GM Tube TOP SCH ×3 (13:02→20:17)
[2020-06-09] MEDS: Pantoprazole 40 MG Tab.CR PO SCH (13:05)
[2020-06-09] MEDS ORDERED: Magnesium Hydroxide 400 MG/5 ML Susp 30 ML Cup PO PRN (16:16)
[2020-06-09] MEDS: Carvedilol 12.5 MG Tab PO SCH (17:03)
[2020-06-09] MEDS: atorvaSTATin 40 MG Tab PO SCH (20:15)
[2020-06-09] MEDS: Calcium Carbonate 750 MG Tab.Chew PO SCH (20:15)
[2020-06-09] MEDS: Latanoprost 0.005% Ophth Soln 2.5 ML Bottle EYEBOTH SCH (20:15)
[2020-06-10] MEDS: Acetaminophen 325 MG Tab PO PRN ×3 (05:42→17:07)
[2020-06-10] MEDS: Ferrous Sulfate 325 MG Tab PO SCH ×2 (07:14→17:17)
[2020-06-10] MEDS: Bumetanide 1 MG Tab PO SCH (07:14)
[2020-06-10] MEDS: Albuterol/Ipratropium 3.0-0.5 MG/3 ML Neb Soln NEB SCH ×4 (07:14→20:09)
[2020-06-10] MEDS: metroNIDAZOLE 500 MG Tab PO SCH ×3 (07:14→20:08)
[2020-06-10] MEDS: Aspirin 81 MG Tab.EC PO SCH (07:14)
[2020-06-10] MEDS: Magnesium Oxide 400 MG Tab PO SCH (07:15)
[2020-06-10] MEDS: Pantoprazole 40 MG Tab.CR PO SCH (07:15)
[2020-06-10] MEDS: Insulin Lispro 100 Units/ML 3 ML Vial SUBCUT SCH ×2 (07:15→17:10)
[2020-06-10] MEDS: Carvedilol 25 MG Tab PO SCH (07:17)
[2020-06-10] MEDS: Formoterol/Mometasone 200-5 MCG 8.8 GM Inhaler IH SCH ×2 (07:19→17:08)
[2020-06-10] MEDS: Nystatin Crm 30 GM Tube TOP SCH ×4 (07:20→20:11)
[2020-06-10] MEDS: Dorzolamide 2% Ophth Soln 10 ML Bottle EYEBOTH SCH ×2 (07:20→17:19)
[2020-06-10] MEDS: Triamcinolone Acetonide 0.5% Crm 15 GM Tube TOP SCH ×4 (07:20→20:11)
[2020-06-10] MEDS: Diclofenac Sodium 1% Gel 100 GM Tube TOP PRN ×2 (13:17→17:14)
[2020-06-10] MEDS: Carvedilol 12.5 MG Tab PO SCH (17:04)
[2020-06-10] MEDS: Calcium Carbonate 750 MG Tab.Chew PO SCH (20:08)
[2020-06-10] MEDS: atorvaSTATin 40 MG Tab PO SCH (20:09)
[2020-06-10] MEDS: Latanoprost 0.005% Ophth Soln 2.5 ML Bottle EYEBOTH SCH (20:10)
[2020-06-11] MEDS: Insulin Lispro 100 Units/ML 3 ML Vial SUBCUT SCH ×2 (07:22→18:30)
[2020-06-11] MEDS: Ferrous Sulfate 325 MG Tab PO SCH ×2 (07:33→18:28)
[2020-06-11] MEDS: Bumetanide 1 MG Tab PO SCH (07:34)
[2020-06-11] MEDS: metroNIDAZOLE 500 MG Tab PO SCH (07:34)
[2020-06-11] MEDS: Albuterol/Ipratropium 3.0-0.5 MG/3 ML Neb Soln NEB SCH ×4 (07:34→21:47)
[2020-06-11] MEDS: Carvedilol 25 MG Tab PO SCH (07:34)
[2020-06-11] MEDS: Aspirin 81 MG Tab.EC PO SCH (07:34)
[2020-06-11] MEDS: Magnesium Oxide 400 MG Tab PO SCH (07:34)
[2020-06-11] MEDS: Pantoprazole 40 MG Tab.CR PO SCH (07:34)
[2020-06-11] MEDS: Formoterol/Mometasone 200-5 MCG 8.8 GM Inhaler IH SCH ×2 (07:35→18:23)
[2020-06-11] MEDS: Nystatin Crm 30 GM Tube TOP SCH ×4 (07:36→21:48)
[2020-06-11] MEDS: Triamcinolone Acetonide 0.5% Crm 15 GM Tube TOP SCH ×4 (07:37→21:48)
[2020-06-11] MEDS: Dorzolamide 2% Ophth Soln 10 ML Bottle EYEBOTH SCH ×2 (07:37→18:31)
[2020-06-11] MEDS ORDERED: Sodium Polystyrene Sulfonate 15 GM/60 ML Susp 60 ML Bot PO ONE ×2 (10:46→17:00)
--- NOTE | 2020-06-11 11:40 | PCM.SN.2 ---
- Free Text/Narrative Note: Patient was to be discharged home today with Home Health visits ordered. Potassium elevation noted again on her labs. This is a chronic issue for patient. Plan is to delay discharge home until tomorrow. Will give Kayexalate and recheck level in AM. Can go home with close follow up by PCP/recheck labs next week. Will recommend referral by local PCP to Internal Medicine and Nephrology for further evaluation and updated recommendations for treatment given her multiple chronic problems and worsening renal function.
[2020-06-11] MEDS: Carvedilol 12.5 MG Tab PO SCH (18:27)
[2020-06-11] MEDS: Latanoprost 0.005% Ophth Soln 2.5 ML Bottle EYEBOTH SCH (20:11)
[2020-06-11] MEDS: Calcium Carbonate 750 MG Tab.Chew PO SCH (20:11)
[2020-06-11] MEDS: atorvaSTATin 40 MG Tab PO SCH (20:12)
[2020-06-12] MEDS: Nitroglycerin 0.4 MG Tab.SL SL PRN ×2 (05:20→05:50)
[2020-06-12] MEDS ORDERED: GI Cocktail Oral Solution 30 ML PO ONE (05:40)
[2020-06-12] MEDS: Ferrous Sulfate 325 MG Tab PO SCH (07:47)
[2020-06-12] MEDS: Pantoprazole 40 MG Tab.CR PO SCH (07:47)
[2020-06-12] MEDS: Magnesium Oxide 400 MG Tab PO SCH (07:47)
[2020-06-12] MEDS: Bumetanide 1 MG Tab PO SCH (07:47)
[2020-06-12] MEDS: Albuterol/Ipratropium 3.0-0.5 MG/3 ML Neb Soln NEB SCH (07:47)
[2020-06-12] MEDS: Carvedilol 25 MG Tab PO SCH (07:48)
[2020-06-12] MEDS: Aspirin 81 MG Tab.EC PO SCH (07:48)
[2020-06-12] MEDS: Dorzolamide 2% Ophth Soln 10 ML Bottle EYEBOTH SCH (07:52)
[2020-06-12] MEDS: Triamcinolone Acetonide 0.5% Crm 15 GM Tube TOP SCH (07:52)
[2020-06-12] MEDS: Insulin Lispro 100 Units/ML 3 ML Vial SUBCUT SCH (07:53)
[2020-06-12] MEDS: Nystatin Crm 30 GM Tube TOP SCH (07:53)
[2020-06-12] MEDS: Formoterol/Mometasone 200-5 MCG 8.8 GM Inhaler IH SCH (07:55)
[2020-06-12] MEDS: Acetaminophen 325 MG Tab PO PRN (08:00)
[2020-06-12] MEDS ORDERED: Sodium Chloride 0.9% 10 ML Syringe FLUSH PRN (10:19)
--- NOTE | 2020-06-12 10:26 | PCM.DCSUM1 ---
Discharge Summary - Hospital Course HPI Initial Comments: See acute care admission H&P Brief History: See acute care admission H&P Diagnosis: Stroke: No Modified [place] Scale: No Symptoms at All Modified [place] Scale Score: 0 - Discharge Data Discharge Date: 06/12/20 Discharge Disposition: DC/Tfer to Acute Hospital 02 Condition: Fair - Referral to Home Health Primary Care Physician: Mine Tatum NP - Discharge Diagnosis/Problem(s) (1) Coronary artery disease SNOMED Code(s): 76589380 ICD Code: I25.10 - ATHSCL HEART DISEASE OF [place] CORONARY ARTERY W/O ANG PCTRS Status: Chronic Priority: Low Onset Date: 02/22/17 Problem Details: Telephone consultation at [address] Pandey, hospitalist at [facility], who does accept the patient for direct admission into their facility and probable cardiology consultation with heart catheterization in their facility, with no further treatment recommendations given. Physical exam and vital signs were stable at time of transfer by ambulance with public relations supervisor accompaniment. Note that at about 5 AM this morning the patient began having 5/10 left lateral sharp chest pain with no radiation or no other anginal type symptoms, including diaphoresis, nausea, tachycardia, orthostasis, etc.. She did require 2 sublingual nitroglycerin tablets prior to complete elimination of her chest discomfort with no recurrence of her chest pain, including immediately prior to patient transfer. Saline lock was placed with patient also placed on a monitoring manager. Note new anterolateral cardiac ischemia/T wave inversion by today's EKG as below. Various therapeutic options were extensively discussed both with the patient and her son, Marko, during a telephone consultation. Both parties are in agreement to recommended heart catheterization and are aware that this may worsen her baseline kidney disease and that the patient would have to lift her comfort care/NO CODE STATUS in order to have this procedure performed. Emotional support was provided to both parties. Note stable troponin I x2 of 0.008, which is still normal, including shortly prior to patient's transfer as above. Qualifiers: Coronary Disease-Associated Artery/Lesion type: [place] artery [place] vs. transplanted heart: [place] heart Associated angina: with stable angina Qualified Code(s): I25.118 - Atherosclerotic heart disease of [place] coronary artery with other forms of angina pectoris (2) CHF (congestive heart failure) SNOMED Code(s): 54197210 ICD Code: I50.9 - HEART FAILURE, UNSPECIFIED Status: Chronic Priority: High Onset Date: 02/21/17 Problem Details: Note chest pain without any additional anginal type symptoms at about 5 AM on 06/12/2020. The patient did require 2 sublingual nitroglycerin tablets for chest pain relief as above. Note that she did not have any anginal type symptoms either prior to admission and/or previously during this swing bed care or acute care hospitalization in this facility. Note history of complete bifascicular bundle branch block on admi ssion with history of PACs, PVCs, and previous SVT. In addition the patient does have a known history of cardiomegaly with echocardiogram last performed on 08/26/18 with an ejection fraction of 45% at that time and history of pulmonary hypertension. Note previous problems with intolerance to MONICA inhibitor's and spironolactone with secondary recurrent hyperkalemia and renal failure as below. Medication compliance has also been an issue in the past. Her cardiac function and renal status have been stable with current medical regimen with no further change for the time being. No evidence of significant CHF by clinical exam today. Qualifiers: Heart failure chronicity: acute on chronic (3) Diabetic nephropathy Status: Chronic Priority: High Problem Details: Note returned hyperkalemia on 06/11/2020 with Kayexalate once again given and normal potassium level and improved diabetic nephropathy/renal function at this time. Her renal function had significantly improved on 06/01 during recent hospitalization after discontinuation of multiple nephrotoxic medications on 05/31 as below. Acute renal failures/exacerbation of her chronic diabetic nephropathy with significant hyperkalemia likely secondary to her medical therapy as below, including spironolactone and losartan, as potential contributing factors which has also been a problem in the past. Continue to observe her renal function closely especially in light of probable planned heart catheterization as above. The patient is aware that the heart catheterization may worsen her baseline renal function, however she still wants this procedure performed. Qualifiers: Diabetes mellitus type: type 2 Qualified Code(s): E11.21 - Type 2 diabetes mellitus with diabetic nephropathy (4) Diabetes mellitus SNOMED Code(s): 82541747 ICD Code: E11.9 - TYPE 2 DIABETES MELLITUS WITHOUT COMPLICATIONS Status: Chronic Priority: Medium Problem Details: Accu-Cheks during her swing bed care have remained stable with no additional insulin required likely secondary to her improved diet during recent hospitalization and current swing bed care. Accu-Cheks were changed from previous 3 times daily to twice daily, AC, basis with overall good control of her diabetes. Note diabetic nephropathy, diabetic neuropathy, etc.. Glycosylated hemoglobin was 5.0% on 06/01/2020. Qualifiers: Diabetes mellitus type: type 2 Diabetes mellitus public safety telecommunicator insulin use: with senior living use Diabetes mellitus complication status: with kidney complications Diabetes mellitus complication detail: with chronic kidney disease Chronic kidney disease stage: stage 4 (severe) Qualified Code(s): E11.22 - Type 2 diabetes mellitus with diabetic chronic kidney disease; N18.4 - Chronic kidney disease, stage 4 (severe); Z79.4 - FDC (current) use of insulin (5) C. difficile colitis SNOMED Code(s): 885642512 ICD Code: A04.72 - ENTEROCOLITIS D/T CLOSTRIDIUM DIFFICILE, NOT SPCF RECUR Status: Acute Priority: High Onset Date: ~05/30/20 Problem Details: Patient did initiate oral Flagyl therapy during recent inpatient/acute care with completion on 06/10/2020 during her swing bed care. Patient is no longer having problems with diarrhea, although some mild loose stools yesterday after receiving Kayexalate for her return hyperkalemia. Note apparent previous pharmacy consultation with Cara, our pharmacist, and an apparent infectious disease specialist, with decision made to continue with current Flagyl therapy rather than changing to oral vancomycin. Intermittent nausea was apparently a chronic issue at home. Continue to observe closely for now. Contact precautions are still in effect. (6) Osteoarthritis SNOMED Code(s): 969376646 ICD Code: M19.90 - UNSPECIFIED OSTEOARTHRITIS, UNSPECIFIED SITE Status: Chronic Priority: High Problem Details: Note nonspecific generalized weakness with PT and OT in effect with required swing bed care after recent hospitalization as above. Initially the patient was planned to be discharged on 06/11, however secondary to return hyperkalemia she was kept in swing bed for further observation and treatment. Otherwise her arthritis is stable by history with only very occasional shoulder and arthritic complaints improved on 06/07/2020. Qualifiers: Osteoarthritis location: multiple joints Osteoarthritis type: primary Qualified Code(s): M89.49 - Other hypertrophic osteoarthropathy, multiple sites (7) Recurrent UTI SNOMED Code(s): 971735357 ICD Code: N39.0 - URINARY TRACT INFECTION, SITE NOT SPECIFIED Status: Chronic Priority: Medium Problem Details: Antibiotic therapy has been completed with Diflucan after therapy also completed. Follow-up quick cath UA was normal with no evidence of recurrence of her infection, which was likely exacerbated by her previous C. difficile colitis. (8) COPD (chronic obstructive pulmonary disease) SNOMED Code(s): 46658453 ICD Code: J44.9 - CHRONIC OBSTRUCTIVE PULMONARY DISEASE, UNSPECIFIED Status: Chronic Priority: Medium Problem Details: No recent fever or bronchitic type symptoms. The patient did have a negative COVID-19's rapid test during previous acute care hospitalization in this facility. Her previous nebulizer and inhaler therapy were continued as before. Qualifiers: COPD type: emphysema Emphysema type: panlobular Qualified Code(s): J43.1 - Panlobular emphysema (9) Hypertension SNOMED Code(s): 90137198 ICD Code: I10 - ESSENTIAL (PRIMARY) HYPERTENSION Status: Chronic Priority: Medium Problem Details: Stable during this swing bed care and previous hospitalization despite multiple previous medication adjustments as above. Qualifiers: Hypertension type: essential hypertension Qualified Code(s): I10 - Essential (primary) hypertension (10) Hypocalcemia SNOMED Code(s): 2594854 ICD Code: E83.51 - HYPOCALCEMIA Status: Chronic Priority: Medium Onset Date: 03/01/18 Problem Details: Resumed OTC Tums as calcium supplementation and GI prophylaxis on 05/31/2020. Continue to observe closely for now with persistent mildly decreased calcium level on 06/07/2020. (11) Peptic reflux disease SNOMED Code(s): 170965912 ICD Code: K21.9 - GASTRO-ESOPHAGEAL REFLUX DISEASE WITHOUT ESOPHAGITIS Status: Chronic Priority: Medium Problem Details: Stable by history and during her swing bed care. (12) Tobacco abuse counseling SNOMED Code(s): 909396171, 022698609, 429079024 ICD Code: Z71.6 - TOBACCO ABUSE COUNSELING Status: Chronic Priority: Medium Problem Details: Tobacco smoke exposure was once again extensively discussed with the patient with tobacco cessation information to be provided at discharge from accepting facility. (13) Anemia SNOMED Code(s): 489243552 ICD Code: D64.9 - ANEMIA, UNSPECIFIED Status: Chronic Priority: Medium Onset Date: 02/27/18 Problem Details: Hemoglobin stable in comparison to recent values on 06/07 and 06/01/2028 during recent hospitalization. Note significant progression of her anemia during that hospitalization admission likely secondary to rehydration effect with hemoglobin of 9.8 on 05/31 in comparison to 12.4 on admission. Long history of iron deficiency anemia with i courtney supplement reinitiated on 05/31/20. Continue to observe closely by accepting providers and on an outpatient basis. Note chronic renal insufficiency. No evidence of acute GI bleed, etc. despite previous Lovenox therapy. Qualifiers: Anemia type: iron deficiency (14) Need for comfort care SNOMED Code(s): 320682685, 722661450 ICD Code: SVK3649 - Status: Chronic Priority: Medium Problem Details: As above. The patient has been somewhat indecisive concerning her CODE STATUS with initial full code status during recent acute care/inpatient care patient, which was subsequently changed to comfort care on admission to swing bed. She is now agreeing to hold/change her NO CODE STATUS at this time in order to have her heart catheterization performed with her son also in agreement with this treatment plan as above. Long-term prognosis is guarded secondary to patient's heart disease, recurrent renal failure/diabetic nephropathy and multiple healthcare issues as above. - Patient Summary/Data Operative Procedure(s) Performed: None, although planned heart catheterization by accepting providers as above. Complications: Chest pain prior to transfer as above Consults: Consultations 06/04/20 12:17 Consult to Case Management/Business Intelligence Analyst [CONS] Routine Consult to Physical Therapy [PT Evaluation and Treatment] [CONS] Routine OT Evaluation and Treatment [CONS] Routine Labs Pending at D/C: None Recommended Follow-up Testing/Procedures: As above Planned Operative Procedure(s) after DC: As above Hospital Course: The patient was transferred from inpatient/acute care from our facility after treatment for refractory hand recurrent acute renal failure secondary to her diabetic nephropathy as above. She was subsequently transferred to swing bed care in our facility for further strengthening, PT, and OT, which did go well. At about 5 AM on 06/12/2020 the patient began experiencing some left chest pain with EKG changes noted. She did require 2 sublingual nitroglycerin tablets as above with stable vital signs, clinical exam, no recurrence of her chest pain prior to hospital transfer as above. - Patient Instructions Diet: NPO Activity: Bedrest Driving: Do Not Drive Showering/Bathing: No Showering Notify Provider of: Increased Pain, Nausea and/or Vomiting Other/Special Instructions: Ambulance transfer to [facility] in [place] as above. - Discharge Plan *PRESCRIPTION DRUG MONITORING PROGRAM REVIEWED*: Not Applicable *COPY OF PRESCRIPTION DRUG MONITORING REPORT IN PATIENT MONSERRAT: Not Applicable Prescriptions/Med Rec: Furosemide [Lasix] 10 mg PO DAILY #30 tab Home Medications: Home Meds Albuterol/Ipratropium [DuoNeb 3.0-0.5 MG/3 ML] 3 ml NEB QID 02/21/17 [History] Latanoprost [Xalatan 0.005% Ophth Soln] 1 drop EYEBOTH BEDTIME 02/21/17 [History] atorvaSTATin Calcium [Atorvastatin Calcium] 40 mg PO BEDTIME 02/21/17 [History] Loperamide [Imodium AD] 2 mg PO Q6H PRN #0 tablet 03/01/18 [Rx] Aspirin [Lo-Dose Aspirin EC] 81 mg PO DAILY 06/26/19 [History] Brinzolamide [Azopt 1% Ophth Susp] 1 drop EYEBOTH BID 06/26/19 [History] Insulin Glarg,Human.Rec.Analog [Lantus Solostar] 10 units SUBCUT DAILY 06/26/19 [History] Insulin Glulisine [Apidra Solostar] 6 - 8 unit SUBCUT TID 06/26/19 [History] Nitroglycerin 1 tab SL ASDIRECTED PRN 06/26/19 [History] carvediloL [Carvedilol] 25 mg PO QAM 06/26/19 [History] carvediloL [Carvedilol] 12.5 mg PO QPM 12/02/19 [History] Acetaminophen [Tylenol] 650 mg PO Q4H PRN tablet 12/07/19 [Rx] Albuterol [Proair HFA] 1 gm INH Q2H PRN inhaler 12/07/19 [Rx] Bumetanide [Bumex] 2 mg PO DAILY #30 12/07/19 [Rx] Calcium Carbonate [Tums Extra Strength] 1,500 mg PO BEDTIME tab.chew 12/07/19 [Rx] Ferrous Sulfate 325 mg PO BID tablet 12/07/19 [Rx] Losartan [Cozaar] 50 mg PO BID #60 tablet 12/07/19 [Rx] Spironolactone [Aldactone] 12.5 mg PO Q12HR 12/07/19 [History] bisacodyL [Dulcolax] 10 mg RECTAL DAILY PRN supp 12/07/19 [Rx] Budesonide/Formoterol [Symbicort 160-4.5 MCG] 1 puff INH BID 06/02/20 [History] Furosemide [Lasix] 10 mg PO DAILY #30 tab 06/11/20 [Rx] Oxygen Therapy Mode: Room Air Forms: Interfacility Transfer EMTALA - Discharge Summary/Plan Comment DC Time >30 min.: Yes (Coordination of care ) Discharge Summary/Plan Comment: As above. Extensive precautions were given to the patient and her son, who are in agreement with the treatment plan. Ambulance transfer as above. - General Info Date of Service: 06/12/20 Admission Dx/Problem (Free Text: 1. Diabetic nephropathy with recent acute renal failure 2. C. difficile colitis 3. Generalized weakness 4. COPD 5. CHF 6. Coronary artery disease Functional Status: Reports: Pain Controlled, Tolerating Diet (Breakfast this morning but kept n.p.o. thereafter), Ambulating (With assist), Urinating, New Symptoms (New onset chest pain at 5 AM requiring 2 sublingual nitroglycerin tablets for complete resolution as above) Numeric/FACES Score: 0 (Currently with 5/10 at 5 AM as above) - Review of Systems General: Reports: Weakness (Slowly improving). Denies: Fever, Fatigue, Malaise, Chills, Night Sweats, Appetite (Good) HEENT: Reports: No Symptoms. Denies: Eye Pain, Headaches, Sinus Congestion, Sore Throat, Rhinitis, Visual Changes Pulmonary: Reports: Shortness of Breath (With activity). Denies: Pleuritic Chest Pain, Cough, Sputum, Hemoptysis, Wheezing Cardiovascular: Reports: Chest Pain (Resolved with nitroglycerin as above), Dyspnea on Exertion. Denies: Palpitations, Orthopnea, PND, Edema, Lightheadedness Gastrointestinal: Reports: No Symptoms, Diarrhea (Mild loose stools this past evening secondary to her Kayexalate). Denies: Abdominal Pain, Constipation, Decreased Appetite, Difficulty Swallowing, Flatus, Hematochezia, Melena, Nausea, Vomiting Genitourinary: Reports: Incontinence. Denies: Dysuria, Frequency, Burning, Pain, Urgency, Hematuria, Retention, Flank Pain Musculoskeletal: Reports: No Symptoms. Denies: Neck Pain, Shoulder Pain, Arm Pain, Back Pain, Leg Pain Skin: Reports: No Symptoms. Denies: Diaphoresis Neurological: Reports: Headache (Mild this morning secondary to nitroglycerin tablets), Numbness (Stable by history), Paresthesia (As above), Tingling (Stable by history), Difficulty Walking (Walker use requiredchronic), Weakness (As above). Denies: Syncope Psychiatric: Denies: Confusion, Depression, Anxiety, Agitation, Cravings, Hallucinations - Patient Data Vitals - Most Recent: Last Vital Signs Temp 36.4 C 06/12/20 07:30 Pulse 85 06/12/20 07:48 Resp 20 06/12/20 07:30 BP 151/84 H 06/12/20 07:48 Pulse Ox 95 06/12/20 07:30 Vital Signs (72 hours) 06/09/20 06/09/20 06/10/20 17:03 19:38 07:17 Temperature [ 36.6 C 36.8 C Oral] Pulse, 0 L 77 Peripheral Pulse, 77 77 Peripheral [ Right Pulse Oximetry] Respiratory 20 18 Rate Blood Pressure 0/0 L 143/64 H Blood Pressure 106/65 143/64 H [Left Upper Arm ] Blood Pressure [Right Upper Arm] O2 Sat by Pulse 96 96 Oximetry 06/10/20 06/10/20 06/11/20 17:04 19:39 07:09 Temperature [ 36.5 C 36.6 C Oral] Pulse, 0 L Peripheral Pulse, 75 75 Peripheral [ Right Pulse Oximetry] Respiratory 20 20 Rate Blood Pressure 0/0 L Blood Pressure 132/68 [Left Upper Arm ] Blood Pressure 146/79 H [Right Upper Arm] O2 Sat by Pulse 96 97 Oximetry 06/11/20 06/11/20 06/11/20 07:34 08:00 18:27 Temperature [ 36.6 C Oral] Pulse, 75 64 Peripheral Pulse, 75 Peripheral [ Right Pulse Oximetry] Respiratory 20 Rate Blood Pressure 146/79 H 141/72 H Blood Pressure [Left Upper Arm ] Blood Pressure 146/79 H [Right Upper Arm] O2 Sat by Pulse 97 Oximetry 06/11/20 06/12/20 06/12/20 20:00 05:20 05:50 Temperature [ 37.4 C Oral] Pulse, Peripheral Pulse, 67 Peripheral [ Right Pulse Oximetry] Respiratory 18 Rate Blood Pressure 130/83 139/76 Blood Pressure [Left Upper Arm ] Blood Pressure 134/63 [Right Upper Arm] O2 Sat by Pulse 97 Oximetry 06/12/20 06/12/20 07:30 07:48 Temperature [ 36.4 C Oral] Pulse, 85 Peripheral Pulse, 85 Peripheral [ Right Pulse Oximetry] Respiratory 20 Rate Blood Pressure 151/84 H Blood Pressure [Left Upper Arm ] Blood Pressure 151/84 H [Right Upper Arm] O2 Sat by Pulse 95 Oximetry Weight - Most Recent: 75.387 kg I&O - Last 24 hours: Intake & Output 06/11/20 06/12/20 06/12/20 22:59 06:59 14:59 Intake Total 180 200 Balance 180 200 Imaging Impressions - Last 24 hrs: monitoring analyst applied shortly prior to patient's transfer patient shows normal sinus rhythm with no ectopy or arrhythmia. Lab Results - Last 24 hrs: Laboratory Results - last 24 hr 06/11/20 06/12/20 06/12/20 Range/Units 17:16 05:50 05:50 Sodium 145 (136-145) mmol/L Potassium 3.9 (3.5-5.1) mmol/L Chloride 111 H (98-107) mmol/L Carbon Dioxide 24.7 (21.0-32.0) mmol/L BUN 37 H (7-18) mg/dL Creatinine 1.77 H (0.51-1.17) mg/dL Est Cr Clr Drug Dosing 18.90 mL/min Estimated GFR (MDRD) 28 mL/min Glucose 155 H (70-99) mg/dL POC Glucose 171 H (65-110) mg/dl Calcium 8.2 L (8.5-10.1) mg/dL Troponin I 0.008 (0.000-0.056) ng/mL 06/12/20 Range/Units 07:30 Sodium (136-145) mmol/L Potassium (3.5-5.1) mmol/L Chloride (98-107) mmol/L Carbon Dioxide (21.0-32.0) mmol/L BUN (7-18) mg/dL Creatinine (0.51-1.17) mg/dL Est Cr Clr Drug Dosing mL/min Estimated GFR (MDRD) mL/min Glucose (70-99) mg/dL POC Glucose 159 H (65-110) mg/dl Calcium (8.5-10.1) mg/dL Troponin I (0.000-0.056) ng/mL Laboratory Tests 06/04/20 06/04/20 06/05/20 Range/Units 17:21 20:35 07:14 WBC (4.0-10.2) K/uL RBC (3.77-5.09) M/uL Hgb (11.7-15.5) g/dL Hct (34.0-46.0) % MCV (84.0-98.0) fL MCH (28.2-33.3) pg MCHC (31.7-36.0) g/dL RDW (11.2-14.1) % Plt Count (150-350) K/uL Neut % (Auto) (45.0-80.0) % Lymph % (Auto) (10.0-50.0) % [place] % (Auto) (2.0-14.0) % Eos % (Auto) (0.0-5.0) % Baso % (Auto) (0.0-2.0) % Neut # (Auto) (1.40-7.00) K/uL Lymph # (Auto) (0.50-3.50) K/uL [place] # (Auto) (0.00-1.00) K/uL Eos # (Auto) (0.00-0.50) K/uL Baso # (Auto) (0.00-0.20) K/uL Sodium (136-145) mmol/L Potassium (3.5-5.1) mmol/L Chloride (98-107) mmol/L Carbon Dioxide (21.0-32.0) mmol/L BUN (7-18) mg/dL Creatinine (0.51-1.17) mg/dL Est Cr Clr Drug Dosing mL/min Estimated GFR (MDRD) mL/min Glucose (70-99) mg/dL POC Glucose 109 119 H 93 (65-110) mg/dl Calcium (8.5-10.1) mg/dL Magnesium (1.8-2.4) mg/dL Total Bilirubin (0.2-1.0) mg/dL AST (15-37) U/L ALT (12-78) U/L Alkaline Phosphatase (46-116) IU/L Troponin I (0.000-0.056) ng/mL Total Protein (6.4-8.2) g/dL Albumin (3.4-5.0) g/dL Specimen Type Urine Color Urine Appearance Urine pH (5.0-9.0) Ur Specific [place] (1.005-1.030) Urine Protein (NEGATIVE) mg/dL Urine Glucose (UA) (NEGATIVE) mg/dL Urine Ketones (NEGATIVE) mg/dL Urine Occult Blood (NEGATIVE) Urine Nitrite (NEGATIVE) Urine Bilirubin (NEGATIVE) Urine Urobilinogen (0.2-1.0) E.U./dL Ur Leukocyte Esterase (NEGATIVE) Urine RBC /HPF Urine WBC /HPF Ur Epithelial Cells /LPF Urine Bacteria (NONE TO FEW) /HPF 06/05/20 06/05/20 06/05/20 Range/Units 11:07 17:03 20:33 WBC (4.0-10.2) K/uL RBC (3.77-5.09) M/uL Hgb (11.7-15.5) g/dL Hct (34.0-46.0) % MCV (84.0-98.0) fL MCH (28.2-33.3) pg MCHC (31.7-36.0) g/dL RDW (11.2-14.1) % Plt Count (150-350) K/uL Neut % (Auto) (45.0-80.0) % Lymph % (Auto) (10.0-50.0) % [place] % (Auto) (2.0-14.0) % Eos % (Auto) (0.0-5.0) % Baso % (Auto) (0.0-2.0) % Neut # (Auto) (1.40-7.00) K/uL Lymph # (Auto) (0.50-3.50) K/uL [place] # (Auto) (0.00-1.00) K/uL Eos # (Auto) (0.00-0.50) K/uL Baso # (Auto) (0.00-0.20) K/uL Sodium (136-145) mmol/L Potassium (3.5-5.1) mmol/L Chloride (98-107) mmol/L Carbon Dioxide (21.0-32.0) mmol/L BUN (7-18) mg/dL Creatinine (0.51-1.17) mg/dL Est Cr Clr Drug Dosing mL/min Estimated GFR (MDRD) mL/min Glucose (70-99) mg/dL POC Glucose 156 H 113 H 165 H (65-110) mg/dl Calcium (8.5-10.1) mg/dL Magnesium (1.8-2.4) mg/dL Total Bilirubin (0.2-1.0) mg/dL AST (15-37) U/L ALT (12-78) U/L Alkaline Phosphatase (46-116) IU/L Troponin I (0.000-0.056) ng/mL Total Protein (6.4-8.2) g/dL Albumin (3.4-5.0) g/dL Specimen Type Urine Color Urine Appearance Urine pH (5.0-9.0) Ur Specific [place] (1.005-1.030) Urine Protein (NEGATIVE) mg/dL Urine Glucose (UA) (NEGATIVE) mg/dL Urine Ketones (NEGATIVE) mg/dL Urine Occult Blood (NEGATIVE) Urine Nitrite (NEGATIVE) Urine Bilirubin (NEGATIVE) Urine Urobilinogen (0.2-1.0) E.U./dL Ur Leukocyte Esterase (NEGATIVE) Urine RBC /HPF Urine WBC /HPF Ur Epithelial Cells /LPF Urine Bacteria (NONE TO FEW) /HPF 06/06/20 06/06/20 06/06/20 Range/Units 07:21 12:22 16:41 WBC (4.0-10.2) K/uL RBC (3.77-5.09) M/uL Hgb (11.7-15.5) g/dL Hct (34.0-46.0) % MCV (84.0-98.0) fL MCH (28.2-33.3) pg MCHC (31.7-36.0) g/dL RDW (11.2-14.1) % Plt Count (150-350) K/uL Neut % (Auto) (45.0-80.0) % Lymph % (Auto) (10.0-50.0) % [place] % (Auto) (2.0-14.0) % Eos % (Auto) (0.0-5.0) % Baso % (Auto) (0.0-2.0) % Neut # (Auto) (1.40-7.00) K/uL Lymph # (Auto) (0.50-3.50) K/uL [place] # (Auto) (0.00-1.00) K/uL Eos # (Auto) (0.00-0.50) K/uL Baso # (Auto) (0.00-0.20) K/uL Sodium (136-145) mmol/L Potassium (3.5-5.1) mmol/L Chloride (98-107) mmol/L Carbon Dioxide (21.0-32.0) mmol/L BUN (7-18) mg/dL Creatinine (0.51-1.17) mg/dL Est Cr Clr Drug Dosing mL/min Estimated GFR (MDRD) mL/min Glucose (70-99) mg/dL POC Glucose 106 143 H 116 H (65-110) mg/dl Calcium (8.5-10.1) mg/dL Magnesium (1.8-2.4) mg/dL Total Bilirubin (0.2-1.0) mg/dL AST (15-37) U/L ALT (12-78) U/L Alkaline Phosphatase (46-116) IU/L Troponin I (0.000-0.056) ng/mL Total Protein (6.4-8.2) g/dL Albumin (3.4-5.0) g/dL Specimen Type Urine Color Urine Appearance Urine pH (5.0-9.0) Ur Specific [place] (1.005-1.030) Urine Protein (NEGATIVE) mg/dL Urine Glucose (UA) (NEGATIVE) mg/dL Urine Ketones (NEGATIVE) mg/dL Urine Occult Blood (NEGATIVE) Urine Nitrite (NEGATIVE) Urine Bilirubin (NEGATIVE) Urine Urobilinogen (0.2-1.0) E.U./dL Ur Leukocyte Esterase (NEGATIVE) Urine RBC /HPF Urine WBC /HPF Ur Epithelial Cells /LPF Urine Bacteria (NONE TO FEW) /HPF 06/06/20 06/07/20 06/07/20 Range/Units 21:09 07:10 07:10 WBC 7.5 (4.0-10.2) K/uL RBC 3.15 L (3.77-5.09) M/uL Hgb 9.5 L (11.7-15.5) g/dL Hct 30.6 L (34.0-46.0) % MCV 97.1 (84.0-98.0) fL MCH 30.2 (28.2-33.3) pg MCHC 31.0 L (31.7-36.0) g/dL RDW 13.3 (11.2-14.1) % Plt Count 136 L (150-350) K/uL Neut % (Auto) 48.7 (45.0-80.0) % Lymph % (Auto) 36.7 (10.0-50.0) % [place] % (Auto) 10.6 (2.0-14.0) % Eos % (Auto) 3.5 (0.0-5.0) % Baso % (Auto) 0.5 (0.0-2.0) % Neut # (Auto) 3.64 (1.40-7.00) K/uL Lymph # (Auto) 2.74 (0.50-3.50) K/uL Johnston # (Auto) 0.79 (0.00-1.00) K/uL Eos # (Auto) 0.26 (0.00-0.50) K/uL Baso # (Auto) 0.04 (0.00-0.20) K/uL Sodium 144 (136-145) mmol/L Potassium 4.2 (3.5-5.1) mmol/L Chloride 110 H (98-107) mmol/L Carbon Dioxide 25.9 (21.0-32.0) mmol/L BUN 51 H (7-18) mg/dL Creatinine 2.91 H (0.51-1.17) mg/dL Est Cr Clr Drug Dosing 11.50 mL/min Estimated GFR (MDRD) 16 mL/min Glucose 136 H (70-99) mg/dL POC Glucose 144 H (65-110) mg/dl Calcium 8.2 L (8.5-10.1) mg/dL Magnesium 1.9 (1.8-2.4) mg/dL Total Bilirubin (0.2-1.0) mg/dL AST (15-37) U/L ALT (12-78) U/L Alkaline Phosphatase (46-116) IU/L Troponin I (0.000-0.056) ng/mL Total Protein (6.4-8.2) g/dL Albumin (3.4-5.0) g/dL Specimen Type Urine Color Urine Appearance Urine pH (5.0-9.0) Ur Specific [place] (1.005-1.030) Urine Protein (NEGATIVE) mg/dL Urine Glucose (UA) (NEGATIVE) mg/dL Urine Ketones (NEGATIVE) mg/dL Urine Occult Blood (NEGATIVE) Urine Nitrite (NEGATIVE) Urine Bilirubin (NEGATIVE) Urine Urobilinogen (0.2-1.0) E.U./dL Ur Leukocyte Esterase (NEGATIVE) Urine RBC /HPF Urine WBC /HPF Ur Epithelial Cells /LPF Urine Bacteria (NONE TO FEW) /HPF 06/07/20 06/07/20 06/08/20 Range/Units 07:12 17:24 07:49 WBC (4.0-10.2) K/uL RBC (3.77-5.09) M/uL Hgb (11.7-15.5) g/dL Hct (34.0-46.0) % MCV (84.0-98.0) fL MCH (28.2-33.3) pg MCHC (31.7-36.0) g/dL RDW (11.2-14.1) % Plt Count (150-350) K/uL Neut % (Auto) (45.0-80.0) % Lymph % (Auto) (10.0-50.0) % [place] % (Auto) (2.0-14.0) % Eos % (Auto) (0.0-5.0) % Baso % (Auto) (0.0-2.0) % Neut # (Auto) (1.40-7.00) K/uL Lymph # (Auto) (0.50-3.50) K/uL [place] # (Auto) (0.00-1.00) K/uL Eos # (Auto) (0.00-0.50) K/uL Baso # (Auto) (0.00-0.20) K/uL Sodium (136-145) mmol/L Potassium (3.5-5.1) mmol/L Chloride (98-107) mmol/L Carbon Dioxide (21.0-32.0) mmol/L BUN (7-18) mg/dL Creatinine (0.51-1.17) mg/dL Est Cr Clr Drug Dosing mL/min Estimated GFR (MDRD) mL/min Glucose (70-99) mg/dL POC Glucose 125 H 117 H 108 (65-110) mg/dl Calcium (8.5-10.1) mg/dL Magnesium (1.8-2.4) mg/dL Total Bilirubin (0.2-1.0) mg/dL AST (15-37) U/L ALT (12-78) U/L Alkaline Phosphatase (46-116) IU/L Troponin I (0.000-0.056) ng/mL Total Protein (6.4-8.2) g/dL Albumin (3.4-5.0) g/dL Specimen Type Urine Color Urine Appearance Urine pH (5.0-9.0) Ur Specific [place] (1.005-1.030) Urine Protein (NEGATIVE) mg/dL Urine Glucose (UA) (NEGATIVE) mg/dL Urine Ketones (NEGATIVE) mg/dL Urine Occult Blood (NEGATIVE) Urine Nitrite (NEGATIVE) Urine Bilirubin (NEGATIVE) Urine Urobilinogen (0.2-1.0) E.U./dL Ur Leukocyte Esterase (NEGATIVE) Urine RBC /HPF Urine WBC /HPF Ur Epithelial Cells /LPF Urine Bacteria (NONE TO FEW) /HPF 06/08/20 06/09/20 06/09/20 Range/Units 16:42 07:18 17:03 WBC (4.0-10.2) K/uL RBC (3.77-5.09) M/uL Hgb (11.7-15.5) g/dL Hct (34.0-46.0) % MCV (84.0-98.0) fL MCH (28.2-33.3) pg MCHC (31.7-36.0) g/dL RDW (11.2-14.1) % Plt Count (150-350) K/uL Neut % (Auto) (45.0-80.0) % Lymph % (Auto) (10.0-50.0) % [place] % (Auto) (2.0-14.0) % Eos % (Auto) (0.0-5.0) % Baso % (Auto) (0.0-2.0) % Neut # (Auto) (1.40-7.00) K/uL Lymph # (Auto) (0.50-3.50) K/uL [place] # (Auto) (0.00-1.00) K/uL Eos # (Auto) (0.00-0.50) K/uL Baso # (Auto) (0.00-0.20) K/uL Sodium (136-145) mmol/L Potassium (3.5-5.1) mmol/L Chloride (98-107) mmol/L Carbon Dioxide (21.0-32.0) mmol/L BUN (7-18) mg/dL Creatinine (0.51-1.17) mg/dL Est Cr Clr Drug Dosing mL/min Estimated GFR (MDRD) mL/min Glucose (70-99) mg/dL POC Glucose 200 H 124 H 150 H (65-110) mg/dl Calcium (8.5-10.1) mg/dL Magnesium (1.8-2.4) mg/dL Total Bilirubin (0.2-1.0) mg/dL AST (15-37) U/L ALT (12-78) U/L Alkaline Phosphatase (46-116) IU/L Troponin I (0.000-0.056) ng/mL Total Protein (6.4-8.2) g/dL Albumin (3.4-5.0) g/dL Specimen Type Urine Color Urine Appearance Urine pH (5.0-9.0) Ur Specific [place] (1.005-1.030) Urine Protein (NEGATIVE) mg/dL Urine Glucose (UA) (NEGATIVE) mg/dL Urine Ketones (NEGATIVE) mg/dL Urine Occult Blood (NEGATIVE) Urine Nitrite (NEGATIVE) Urine Bilirubin (NEGATIVE) Urine Urobilinogen (0.2-1.0) E.U./dL Ur Leukocyte Esterase (NEGATIVE) Urine RBC /HPF Urine WBC /HPF Ur Epithelial Cells /LPF Urine Bacteria (NONE TO FEW) /HPF 06/10/20 06/10/20 06/11/20 Range/Units 07:03 17:07 06:23 WBC (4.0-10.2) K/uL RBC (3.77-5.09) M/uL Hgb (11.7-15.5) g/dL Hct (34.0-46.0) % MCV (84.0-98.0) fL MCH (28.2-33.3) pg MCHC (31.7-36.0) g/dL RDW (11.2-14.1) % Plt Count (150-350) K/uL Neut % (Auto) (45.0-80.0) % Lymph % (Auto) (10.0-50.0) % [place] % (Auto) (2.0-14.0) % Eos % (Auto) (0.0-5.0) % Baso % (Auto) (0.0-2.0) % Neut # (Auto) (1.40-7.00) K/uL Lymph # (Auto) (0.50-3.50) K/uL [place] # (Auto) (0.00-1.00) K/uL Eos # (Auto) (0.00-0.50) K/uL Baso # (Auto) (0.00-0.20) K/uL Sodium (136-145) mmol/L Potassium (3.5-5.1) mmol/L Chloride (98-107) mmol/L Carbon Dioxide (21.0-32.0) mmol/L BUN (7-18) mg/dL Creatinine (0.51-1.17) mg/dL Est Cr Clr Drug Dosing mL/min Estimated GFR (MDRD) mL/min Glucose (70-99) mg/dL POC Glucose 138 H 155 H (65-110) mg/dl Calcium (8.5-10.1) mg/dL Magnesium (1.8-2.4) mg/dL Total Bilirubin (0.2-1.0) mg/dL AST (15-37) U/L ALT (12-78) U/L Alkaline Phosphatase (46-116) IU/L Troponin I (0.000-0.056) ng/mL Total Protein (6.4-8.2) g/dL Albumin (3.4-5.0) g/dL Specimen Type Urinvoid Urine Color Sepideh Urine Appearance Slightly cloudy Urine pH 7.5 (5.0-9.0) Ur Specific [place] 1.020 (1.005-1.030) Urine Protein >=300 H (NEGATIVE) mg/dL Urine Glucose (UA) Negative (NEGATIVE) mg/dL Urine Ketones Negative (NEGATIVE) mg/dL Urine Occult Blood Negative (NEGATIVE) Urine Nitrite Negative (NEGATIVE) Urine Bilirubin Negative (NEGATIVE) Urine Urobilinogen 0.2 (0.2-1.0) E.U./dL Ur Leukocyte Esterase Trace H (NEGATIVE) Urine RBC Not seen /HPF Urine WBC 0-5 /HPF Ur Epithelial Cells Moderate H /LPF Urine Bacteria Few (NONE TO FEW) /HPF 06/11/20 06/11/20 06/11/20 Range/Units 07:01 07:01 17:16 WBC 8.6 (4.0-10.2) K/uL RBC 3.38 L (3.77-5.09) M/uL Hgb 10.2 L (11.7-15.5) g/dL Hct 33.3 L (34.0-46.0) % MCV 98.5 H (84.0-98.0) fL MCH 30.2 (28.2-33.3) pg MCHC 30.6 L (31.7-36.0) g/dL RDW 14.0 (11.2-14.1) % Plt Count 176 (150-350) K/uL Neut % (Auto) 66.4 (45.0-80.0) % Lymph % (Auto) 21.7 (10.0-50.0) % [place] % (Auto) 8.2 (2.0-14.0) % Eos % (Auto) 3.2 (0.0-5.0) % Baso % (Auto) 0.5 (0.0-2.0) % Neut # (Auto) 5.72 (1.40-7.00) K/uL Lymph # (Auto) 1.87 (0.50-3.50) K/uL [place] # (Auto) 0.71 (0.00-1.00) K/uL Eos # (Auto) 0.28 (0.00-0.50) K/uL Baso # (Auto) 0.04 (0.00-0.20) K/uL Sodium 143 (136-145) mmol/L Potassium 5.3 H (3.5-5.1) mmol/L Chloride 111 H (98-107) mmol/L Carbon Dioxide 25.2 (21.0-32.0) mmol/L BUN 44 H (7-18) mg/dL Creatinine 2.16 H (0.51-1.17) mg/dL Est Cr Clr Drug Dosing 15.49 mL/min Estimated GFR (MDRD) 22 mL/min Glucose 151 H (70-99) mg/dL POC Glucose 171 H (65-110) mg/dl Calcium 8.4 L (8.5-10.1) mg/dL Magnesium 1.9 (1.8-2.4) mg/dL Total Bilirubin 0.4 (0.2-1.0) mg/dL AST 23 (15-37) U/L ALT 23 (12-78) U/L Alkaline Phosphatase 72 (46-116) IU/L Troponin I (0.000-0.056) ng/mL Total Protein 6.2 L (6.4-8.2) g/dL Albumin 3.0 L (3.4-5.0) g/dL Specimen Type Urine Color Urine Appearance Urine pH (5.0-9.0) Ur Specific [place] (1.005-1.030) Urine Protein (NEGATIVE) mg/dL Urine Glucose (UA) (NEGATIVE) mg/dL Urine Ketones (NEGATIVE) mg/dL Urine Occult Blood (NEGATIVE) Urine Nitrite (NEGATIVE) Urine Bilirubin (NEGATIVE) Urine Urobilinogen (0.2-1.0) E.U./dL Ur Leukocyte Esterase (NEGATIVE) Urine RBC /HPF Urine WBC /HPF Ur Epithelial Cells /LPF Urine Bacteria (NONE TO FEW) /HPF 06/12/20 06/12/20 06/12/20 Range/Units 05:50 05:50 07:30 WBC (4.0-10.2) K/uL RBC (3.77-5.09) M/uL Hgb (11.7-15.5) g/dL Hct (34.0-46.0) % MCV (84.0-98.0) fL MCH (28.2-33.3) pg MCHC (31.7-36.0) g/dL RDW (11.2-14.1) % Plt Count (150-350) K/uL Neut % (Auto) (45.0-80.0) % Lymph % (Auto) (10.0-50.0) % [place] % (Auto) (2.0-14.0) % Eos % (Auto) (0.0-5.0) % Baso % (Auto) (0.0-2.0) % Neut # (Auto) (1.40-7.00) K/uL Lymph # (Auto) (0.50-3.50) K/uL [place] # (Auto) (0.00-1.00) K/uL Eos # (Auto) (0.00-0.50) K/uL Baso # (Auto) (0.00-0.20) K/uL Sodium 145 (136-145) mmol/L Potassium 3.9 (3.5-5.1) mmol/L Chloride 111 H (98-107) mmol/L Carbon Dioxide 24.7 (21.0-32.0) mmol/L BUN 37 H (7-18) mg/dL Creatinine 1.77 H (0.51-1.17) mg/dL Est Cr Clr Drug Dosing 18.90 mL/min Estimated GFR (MDRD) 28 mL/min Glucose 155 H (70-99) mg/dL POC Glucose 159 H (65-110) mg/dl Calcium 8.2 L (8.5-10.1) mg/dL Magnesium (1.8-2.4) mg/dL Total Bilirubin (0.2-1.0) mg/dL AST (15-37) U/L ALT (12-78) U/L Alkaline Phosphatase (46-116) IU/L Troponin I 0.008 (0.000-0.056) ng/mL Total Protein (6.4-8.2) g/dL Albumin (3.4-5.0) g/dL Specimen Type Urine Color Urine Appearance Urine pH (5.0-9.0) Ur Specific [place] (1.005-1.030) Urine Protein (NEGATIVE) mg/dL Urine Glucose (UA) (NEGATIVE) mg/dL Urine Ketones (NEGATIVE) mg/dL Urine Occult Blood (NEGATIVE) Urine Nitrite (NEGATIVE) Urine Bilirubin (NEGATIVE) Urine Urobilinogen (0.2-1.0) E.U./dL Ur Leukocyte Esterase (NEGATIVE) Urine RBC /HPF Urine WBC /HPF Ur Epithelial Cells /LPF Urine Bacteria (NONE TO FEW) /HPF Laboratory Tests 06/04/20 06/04/20 06/05/20 Range/Units 17:21 20:35 07:14 WBC (4.0-10.2) K/uL RBC (3.77-5.09) M/uL Hgb (11.7-15.5) g/dL Hct (34.0-46.0) % MCV (84.0-98.0) fL MCH (28.2-33.3) pg MCHC (31.7-36.0) g/dL RDW (11.2-14.1) % Plt Count (150-350) K/uL Neut % (Auto) (45.0-80.0) % Lymph % (Auto) (10.0-50.0) % [place] % (Auto) (2.0-14.0) % Eos % (Auto) (0.0-5.0) % Baso % (Auto) (0.0-2.0) % Neut # (Auto) (1.40-7.00) K/uL Lymph # (Auto) (0.50-3.50) K/uL [place] # (Auto) (0.00-1.00) K/uL Eos # (Auto) (0.00-0.50) K/uL Baso # (Auto) (0.00-0.20) K/uL Sodium (136-145) mmol/L Potassium (3.5-5.1) mmol/L Chloride (98-107) mmol/L Carbon Dioxide (21.0-32.0) mmol/L BUN (7-18) mg/dL Creatinine (0.51-1.17) mg/dL Est Cr Clr Drug Dosing mL/min Estimated GFR (MDRD) mL/min Glucose (70-99) mg/dL POC Glucose 109 119 H 93 (65-110) mg/dl Calcium (8.5-10.1) mg/dL Magnesium (1.8-2.4) mg/dL Total Bilirubin (0.2-1.0) mg/dL AST (15-37) U/L ALT (12-78) U/L Alkaline Phosphatase (46-116) IU/L Troponin I (0.000-0.056) ng/mL Total Protein (6.4-8.2) g/dL Albumin (3.4-5.0) g/dL Specimen Type Urine Color Urine Appearance Urine pH (5.0-9.0) Ur Specific [place] (1.005-1.030) Urine Protein (NEGATIVE) mg/dL Urine Glucose (UA) (NEGATIVE) mg/dL Urine Ketones (NEGATIVE) mg/dL Urine Occult Blood (NEGATIVE) Urine Nitrite (NEGATIVE) Urine Bilirubin (NEGATIVE) Urine Urobilinogen (0.2-1.0) E.U./dL Ur Leukocyte Esterase (NEGATIVE) Urine RBC /HPF Urine WBC /HPF Ur Epithelial Cells /LPF Urine Bacteria (NONE TO FEW) /HPF 06/05/20 06/05/20 06/05/20 Range/Units 11:07 17:03 20:33 WBC (4.0-10.2) K/uL RBC (3.77-5.09) M/uL Hgb (11.7-15.5) g/dL Hct (34.0-46.0) % MCV (84.0-98.0) fL MCH (28.2-33.3) pg MCHC (31.7-36.0) g/dL RDW (11.2-14.1) % Plt Count (150-350) K/uL Neut % (Auto) (45.0-80.0) % Lymph % (Auto) (10.0-50.0) % [place] % (Auto) (2.0-14.0) % Eos % (Auto) (0.0-5.0) % Baso % (Auto) (0.0-2.0) % Neut # (Auto) (1.40-7.00) K/uL Lymph # (Auto) (0.50-3.50) K/uL [place] # (Auto) (0.00-1.00) K/uL Eos # (Auto) (0.00-0.50) K/uL Baso # (Auto) (0.00-0.20) K/uL Sodium (136-145) mmol/L Potassium (3.5-5.1) mmol/L Chloride (98-107) mmol/L Carbon Dioxide (21.0-32.0) mmol/L BUN (7-18) mg/dL Creatinine (0.51-1.17) mg/dL Est Cr Clr Drug Dosing mL/min Estimated GFR (MDRD) mL/min Glucose (70-99) mg/dL POC Glucose 156 H 113 H 165 H (65-110) mg/dl Calcium (8.5-10.1) mg/dL Magnesium (1.8-2.4) mg/dL Total Bilirubin (0.2-1.0) mg/dL AST (15-37) U/L ALT (12-78) U/L Alkaline Phosphatase (46-116) IU/L Troponin I (0.000-0.056) ng/mL Total Protein (6.4-8.2) g/dL Albumin (3.4-5.0) g/dL Specimen Type Urine Color Urine Appearance Urine pH (5.0-9.0) Ur Specific [place] (1.005-1.030) Urine Protein (NEGATIVE) mg/dL Urine Glucose (UA) (NEGATIVE) mg/dL Urine Ketones (NEGATIVE) mg/dL Urine Occult Blood (NEGATIVE) Urine Nitrite (NEGATIVE) Urine Bilirubin (NEGATIVE) Urine Urobilinogen (0.2-1.0) E.U./dL Ur Leukocyte Esterase (NEGATIVE) Urine RBC /HPF Urine WBC /HPF Ur Epithelial Cells /LPF Urine Bacteria (NONE TO FEW) /HPF 06/06/20 06/06/20 06/06/20 Range/Units 07:21 12:22 16:41 WBC (4.0-10.2) K/uL RBC (3.77-5.09) M/uL Hgb (11.7-15.5) g/dL Hct (34.0-46.0) % MCV (84.0-98.0) fL MCH (28.2-33.3) pg MCHC (31.7-36.0) g/dL RDW (11.2-14.1) % Plt Count (150-350) K/uL Neut % (Auto) (45.0-80.0) % Lymph % (Auto) (10.0-50.0) % [place] % (Auto) (2.0-14.0) % Eos % (Auto) (0.0-5.0) % Baso % (Auto) (0.0-2.0) % Neut # (Auto) (1.40-7.00) K/uL Lymph # (Auto) (0.50-3.50) K/uL [place] # (Auto) (0.00-1.00) K/uL Eos # (Auto) (0.00-0.50) K/uL Baso # (Auto) (0.00-0.20) K/uL Sodium (136-145) mmol/L Potassium (3.5-5.1) mmol/L Chloride (98-107) mmol/L Carbon Dioxide (21.0-32.0) mmol/L BUN (7-18) mg/dL Creatinine (0.51-1.17) mg/dL Est Cr Clr Drug Dosing mL/min Estimated GFR (MDRD) mL/min Glucose (70-99) mg/dL POC Glucose 106 143 H 116 H (65-110) mg/dl Calcium (8.5-10.1) mg/dL Magnesium (1.8-2.4) mg/dL Total Bilirubin (0.2-1.0) mg/dL AST (15-37) U/L ALT (12-78) U/L Alkaline Phosphatase (46-116) IU/L Troponin I (0.000-0.056) ng/mL Total Protein (6.4-8.2) g/dL Albumin (3.4-5.0) g/dL Specimen Type Urine Color Urine Appearance Urine pH (5.0-9.0) Ur Specific [place] (1.005-1.030) Urine Protein (NEGATIVE) mg/dL Urine Glucose (UA) (NEGATIVE) mg/dL Urine Ketones (NEGATIVE) mg/dL Urine Occult Blood (NEGATIVE) Urine Nitrite (NEGATIVE) Urine Bilirubin (NEGATIVE) Urine Urobilinogen (0.2-1.0) E.U./dL Ur Leukocyte Esterase (NEGATIVE) Urine RBC /HPF Urine WBC /HPF Ur Epithelial Cells /LPF Urine Bacteria (NONE TO FEW) /HPF 06/06/20 06/07/20 06/07/20 Range/Units 21:09 07:10 07:10 WBC 7.5 (4.0-10.2) K/uL RBC 3.15 L (3.77-5.09) M/uL Hgb 9.5 L (11.7-15.5) g/dL Hct 30.6 L (34.0-46.0) % MCV 97.1 (84.0-98.0) fL MCH 30.2 (28.2-33.3) pg MCHC 31.0 L (31.7-36.0) g/dL RDW 13.3 (11.2-14.1) % Plt Count 136 L (150-350) K/uL Neut % (Auto) 48.7 (45.0-80.0) % Lymph % (Auto) 36.7 (10.0-50.0) % [place] % (Auto) 10.6 (2.0-14.0) % Eos % (Auto) 3.5 (0.0-5.0) % Baso % (Auto) 0.5 (0.0-2.0) % Neut # (Auto) 3.64 (1.40-7.00) K/uL Lymph # (Auto) 2.74 (0.50-3.50) K/uL [place] # (Auto) 0.79 (0.00-1.00) K/uL Eos # (Auto) 0.26 (0.00-0.50) K/uL Baso # (Auto) 0.04 (0.00-0.20) K/uL Sodium 144 (136-145) mmol/L Potassium 4.2 (3.5-5.1) mmol/L Chloride 110 H (98-107) mmol/L Carbon Dioxide 25.9 (21.0-32.0) mmol/L BUN 51 H (7-18) mg/dL Creatinine 2.91 H (0.51-1.17) mg/dL Est Cr Clr Drug Dosing 11.50 mL/min Estimated GFR (MDRD) 16 mL/min Glucose 136 H (70-99) mg/dL POC Glucose 144 H (65-110) mg/dl Calcium 8.2 L (8.5-10.1) mg/dL Magnesium 1.9 (1.8-2.4) mg/dL Total Bilirubin (0.2-1.0) mg/dL AST (15-37) U/L ALT (12-78) U/L Alkaline Phosphatase (46-116) IU/L Troponin I (0.000-0.056) ng/mL Total Protein (6.4-8.2) g/dL Albumin (3.4-5.0) g/dL Specimen Type Urine Color Urine Appearance Urine pH (5.0-9.0) Ur Specific [place] (1.005-1.030) Urine Protein (NEGATIVE) mg/dL Urine Glucose (UA) (NEGATIVE) mg/dL Urine Ketones (NEGATIVE) mg/dL Urine Occult Blood (NEGATIVE) Urine Nitrite (NEGATIVE) Urine Bilirubin (NEGATIVE) Urine Urobilinogen (0.2-1.0) E.U./dL Ur Leukocyte Esterase (NEGATIVE) Urine RBC /HPF Urine WBC /HPF Ur Epithelial Cells /LPF Urine Bacteria (NONE TO FEW) /HPF 06/07/20 06/07/20 06/08/20 Range/Units 07:12 17:24 07:49 WBC (4.0-10.2) K/uL RBC (3.77-5.09) M/uL Hgb (11.7-15.5) g/dL Hct (34.0-46.0) % MCV (84.0-98.0) fL MCH (28.2-33.3) pg MCHC (31.7-36.0) g/dL RDW (11.2-14.1) % Plt Count (150-350) K/uL Neut % (Auto) (45.0-80.0) % Lymph % (Auto) (10.0-50.0) % [place] % (Auto) (2.0-14.0) % Eos % (Auto) (0.0-5.0) % Baso % (Auto) (0.0-2.0) % Neut # (Auto) (1.40-7.00) K/uL Lymph # (Auto) (0.50-3.50) K/uL [place] # (Auto) (0.00-1.00) K/uL Eos # (Auto) (0.00-0.50) K/uL Baso # (Auto) (0.00-0.20) K/uL Sodium (136-145) mmol/L Potassium (3.5-5.1) mmol/L Chloride (98-107) mmol/L Carbon Dioxide (21.0-32.0) mmol/L BUN (7-18) mg/dL Creatinine (0.51-1.17) mg/dL Est Cr Clr Drug Dosing mL/min Estimated GFR (MDRD) mL/min Glucose (70-99) mg/dL POC Glucose 125 H 117 H 108 (65-110) mg/dl Calcium (8.5-10.1) mg/dL Magnesium (1.8-2.4) mg/dL Total Bilirubin (0.2-1.0) mg/dL AST (15-37) U/L ALT (12-78) U/L Alkaline Phosphatase (46-116) IU/L Troponin I (0.000-0.056) ng/mL Total Protein (6.4-8.2) g/dL Albumin (3.4-5.0) g/dL Specimen Type Urine Color Urine Appearance Urine pH (5.0-9.0) Ur Specific [place] (1.005-1.030) Urine Protein (NEGATIVE) mg/dL Urine Glucose (UA) (NEGATIVE) mg/dL Urine Ketones (NEGATIVE) mg/dL Urine Occult Blood (NEGATIVE) Urine Nitrite (NEGATIVE) Urine Bilirubin (NEGATIVE) Urine Urobilinogen (0.2-1.0) E.U./dL Ur Leukocyte Esterase (NEGATIVE) Urine RBC /HPF Urine WBC /HPF Ur Epithelial Cells /LPF Urine Bacteria (NONE TO FEW) /HPF 06/08/20 06/09/20 06/09/20 Range/Units 16:42 07:18 17:03 WBC (4.0-10.2) K/uL RBC (3.77-5.09) M/uL Hgb (11.7-15.5) g/dL Hct (34.0-46.0) % MCV (84.0-98.0) fL MCH (28.2-33.3) pg MCHC (31.7-36.0) g/dL RDW (11.2-14.1) % Plt Count (150-350) K/uL Neut % (Auto) (45.0-80.0) % Lymph % (Auto) (10.0-50.0) % [place] % (Auto) (2.0-14.0) % Eos % (Auto) (0.0-5.0) % Baso % (Auto) (0.0-2.0) % Neut # (Auto) (1.40-7.00) K/uL Lymph # (Auto) (0.50-3.50) K/uL [place] # (Auto) (0.00-1.00) K/uL Eos # (Auto) (0.00-0.50) K/uL Baso # (Auto) (0.00-0.20) K/uL Sodium (136-145) mmol/L Potassium (3.5-5.1) mmol/L Chloride (98-107) mmol/L Carbon Dioxide (21.0-32.0) mmol/L BUN (7-18) mg/dL Creatinine (0.51-1.17) mg/dL Est Cr Clr Drug Dosing mL/min Estimated GFR (MDRD) mL/min Glucose (70-99) mg/dL POC Glucose 200 H 124 H 150 H (65-110) mg/dl Calcium (8.5-10.1) mg/dL Magnesium (1.8-2.4) mg/dL Total Bilirubin (0.2-1.0) mg/dL AST (15-37) U/L ALT (12-78) U/L Alkaline Phosphatase (46-116) IU/L Troponin I (0.000-0.056) ng/mL Total Protein (6.4-8.2) g/dL Albumin (3.4-5.0) g/dL Specimen Type Urine Color Urine Appearance Urine pH (5.0-9.0) Ur Specific [place] (1.005-1.030) Urine Protein (NEGATIVE) mg/dL Urine Glucose (UA) (NEGATIVE) mg/dL Urine Ketones (NEGATIVE) mg/dL Urine Occult Blood (NEGATIVE) Urine Nitrite (NEGATIVE) Urine Bilirubin (NEGATIVE) Urine Urobilinogen (0.2-1.0) E.U./dL Ur Leukocyte Esterase (NEGATIVE) Urine RBC /HPF Urine WBC /HPF Ur Epithelial Cells /LPF Urine Bacteria (NONE TO FEW) /HPF 06/10/20 06/10/20 06/11/20 Range/Units 07:03 17:07 06:23 WBC (4.0-10.2) K/uL RBC (3.77-5.09) M/uL Hgb (11.7-15.5) g/dL Hct (34.0-46.0) % MCV (84.0-98.0) fL MCH (28.2-33.3) pg MCHC (31.7-36.0) g/dL RDW (11.2-14.1) % Plt Count (150-350) K/uL Neut % (Auto) (45.0-80.0) % Lymph % (Auto) (10.0-50.0) % [place] % (Auto) (2.0-14.0) % Eos % (Auto) (0.0-5.0) % Baso % (Auto) (0.0-2.0) % Neut # (Auto) (1.40-7.00) K/uL Lymph # (Auto) (0.50-3.50) K/uL [place] # (Auto) (0.00-1.00) K/uL Eos # (Auto) (0.00-0.50) K/uL Baso # (Auto) (0.00-0.20) K/uL Sodium (136-145) mmol/L Potassium (3.5-5.1) mmol/L Chloride (98-107) mmol/L Carbon Dioxide (21.0-32.0) mmol/L BUN (7-18) mg/dL Creatinine (0.51-1.17) mg/dL Est Cr Clr Drug Dosing mL/min Estimated GFR (MDRD) mL/min Glucose (70-99) mg/dL POC Glucose 138 H 155 H (65-110) mg/dl Calcium (8.5-10.1) mg/dL Magnesium (1.8-2.4) mg/dL Total Bilirubin (0.2-1.0) mg/dL AST (15-37) U/L ALT (12-78) U/L Alkaline Phosphatase (46-116) IU/L Troponin I (0.000-0.056) ng/mL Total Protein (6.4-8.2) g/dL Albumin (3.4-5.0) g/dL Specimen Type Urinvoid Urine Color Sepideh Urine Appearance Slightly cloudy Urine pH 7.5 (5.0-9.0) Ur Specific [place] 1.020 (1.005-1.030) Urine Protein >=300 H (NEGATIVE) mg/dL Urine Glucose (UA) Negative (NEGATIVE) mg/dL Urine Ketones Negative (NEGATIVE) mg/dL Urine Occult Blood Negative (NEGATIVE) Urine Nitrite Negative (NEGATIVE) Urine Bilirubin Negative (NEGATIVE) Urine Urobilinogen 0.2 (0.2-1.0) E.U./dL Ur Leukocyte Esterase Trace H (NEGATIVE) Urine RBC Not seen /HPF Urine WBC 0-5 /HPF Ur Epithelial Cells Moderate H /LPF Urine Bacteria Few (NONE TO FEW) /HPF 06/11/20 06/11/20 06/11/20 Range/Units 07:01 07:01 17:16 WBC 8.6 (4.0-10.2) K/uL RBC 3.38 L (3.77-5.09) M/uL Hgb 10.2 L (11.7-15.5) g/dL Hct 33.3 L (34.0-46.0) % MCV 98.5 H (84.0-98.0) fL MCH 30.2 (28.2-33.3) pg MCHC 30.6 L (31.7-36.0) g/dL RDW 14.0 (11.2-14.1) % Plt Count 176 (150-350) K/uL Neut % (Auto) 66.4 (45.0-80.0) % Lymph % (Auto) 21.7 (10.0-50.0) % [place] % (Auto) 8.2 (2.0-14.0) % Eos % (Auto) 3.2 (0.0-5.0) % Baso % (Auto) 0.5 (0.0-2.0) % Neut # (Auto) 5.72 (1.40-7.00) K/uL Lymph # (Auto) 1.87 (0.50-3.50) K/uL [place] # (Auto) 0.71 (0.00-1.00) K/uL Eos # (Auto) 0.28 (0.00-0.50) K/uL Baso # (Auto) 0.04 (0.00-0.20) K/uL Sodium 143 (136-145) mmol/L Potassium 5.3 H (3.5-5.1) mmol/L Chloride 111 H (98-107) mmol/L Carbon Dioxide 25.2 (21.0-32.0) mmol/L BUN 44 H (7-18) mg/dL Creatinine 2.16 H (0.51-1.17) mg/dL Est Cr Clr Drug Dosing 15.49 mL/min Estimated GFR (MDRD) 22 mL/min Glucose 151 H (70-99) mg/dL POC Glucose 171 H (65-110) mg/dl Calcium 8.4 L (8.5-10.1) mg/dL Magnesium 1.9 (1.8-2.4) mg/dL Total Bilirubin 0.4 (0.2-1.0) mg/dL AST 23 (15-37) U/L ALT 23 (12-78) U/L Alkaline Phosphatase 72 (46-116) IU/L Troponin I (0.000-0.056) ng/mL Total Protein 6.2 L (6.4-8.2) g/dL Albumin 3.0 L (3.4-5.0) g/dL Specimen Type Urine Color Urine Appearance Urine pH (5.0-9.0) Ur Specific [place] (1.005-1.030) Urine Protein (NEGATIVE) mg/dL Urine Glucose (UA) (NEGATIVE) mg/dL Urine Ketones (NEGATIVE) mg/dL Urine Occult Blood (NEGATIVE) Urine Nitrite (NEGATIVE) Urine Bilirubin (NEGATIVE) Urine Urobilinogen (0.2-1.0) E.U./dL Ur Leukocyte Esterase (NEGATIVE) Urine RBC /HPF Urine WBC /HPF Ur Epithelial Cells /LPF Urine Bacteria (NONE TO FEW) /HPF 06/12/20 06/12/20 06/12/20 Range/Units 05:50 05:50 07:30 WBC (4.0-10.2) K/uL RBC (3.77-5.09) M/uL Hgb (11.7-15.5) g/dL Hct (34.0-46.0) % MCV (84.0-98.0) fL MCH (28.2-33.3) pg MCHC (31.7-36.0) g/dL RDW (11.2-14.1) % Plt Count (150-350) K/uL Neut % (Auto) (45.0-80.0) % Lymph % (Auto) (10.0-50.0) % [place] % (Auto) (2.0-14.0) % Eos % (Auto) (0.0-5.0) % Baso % (Auto) (0.0-2.0) % Neut # (Auto) (1.40-7.00) K/uL Lymph # (Auto) (0.50-3.50) K/uL [place] # (Auto) (0.00-1.00) K/uL Eos # (Auto) (0.00-0.50) K/uL Baso # (Auto) (0.00-0.20) K/uL Sodium 145 (136-145) mmol/L Potassium 3.9 (3.5-5.1) mmol/L Chloride 111 H (98-107) mmol/L Carbon Dioxide 24.7 (21.0-32.0) mmol/L BUN 37 H (7-18) mg/dL Creatinine 1.77 H (0.51-1.17) mg/dL Est Cr Clr Drug Dosing 18.90 mL/min Estimated GFR (MDRD) 28 mL/min Glucose 155 H (70-99) mg/dL POC Glucose 159 H (65-110) mg/dl Calcium 8.2 L (8.5-10.1) mg/dL Magnesium (1.8-2.4) mg/dL Total Bilirubin (0.2-1.0) mg/dL AST (15-37) U/L ALT (12-78) U/L Alkaline Phosphatase (46-116) IU/L Troponin I 0.008 (0.000-0.056) ng/mL Total Protein (6.4-8.2) g/dL Albumin (3.4-5.0) g/dL Specimen Type Urine Color Urine Appearance Urine pH (5.0-9.0) Ur Specific [place] (1.005-1.030) Urine Protein (NEGATIVE) mg/dL Urine Glucose (UA) (NEGATIVE) mg/dL Urine Ketones (NEGATIVE) mg/dL Urine Occult Blood (NEGATIVE) Urine Nitrite (NEGATIVE) Urine Bilirubin (NEGATIVE) Urine Urobilinogen (0.2-1.0) E.U./dL Ur Leukocyte Esterase (NEGATIVE) Urine RBC /HPF Urine WBC /HPF Ur Epithelial Cells /LPF Urine Bacteria (NONE TO FEW) /HPF 06/12/20 Range/Units 10:45 WBC (4.0-10.2) K/uL RBC (3.77-5.09) M/uL Hgb (11.7-15.5) g/dL Hct (34.0-46.0) % MCV (84.0-98.0) fL MCH (28.2-33.3) pg MCHC (31.7-36.0) g/dL RDW (11.2-14.1) % Plt Count (150-350) K/uL Neut % (Auto) (45.0-80.0) % Lymph % (Auto) (10.0-50.0) % [place] % (Auto) (2.0-14.0) % Eos % (Auto) (0.0-5.0) % Baso % (Auto) (0.0-2.0) % Neut # (Auto) (1.40-7.00) K/uL Lymph # (Auto) (0.50-3.50) K/uL [place] # (Auto) (0.00-1.00) K/uL Eos # (Auto) (0.00-0.50) K/uL Baso # (Auto) (0.00-0.20) K/uL Sodium (136-145) mmol/L Potassium (3.5-5.1) mmol/L Chloride (98-107) mmol/L Carbon Dioxide (21.0-32.0) mmol/L BUN (7-18) mg/dL Creatinine (0.51-1.17) mg/dL Est Cr Clr Drug Dosing mL/min Estimated GFR (MDRD) mL/min Glucose (70-99) mg/dL POC Glucose (65-110) mg/dl Calcium (8.5-10.1) mg/dL Magnesium (1.8-2.4) mg/dL Total Bilirubin (0.2-1.0) mg/dL AST (15-37) U/L ALT (12-78) U/L Alkaline Phosphatase (46-116) IU/L Troponin I 0.008 (0.000-0.056) ng/mL Total Protein (6.4-8.2) g/dL Albumin (3.4-5.0) g/dL Specimen Type Urine Color Urine Appearance Urine pH (5.0-9.0) Ur Specific [place] (1.005-1.030) Urine Protein (NEGATIVE) mg/dL Urine Glucose (UA) (NEGATIVE) mg/dL Urine Ketones (NEGATIVE) mg/dL Urine Occult Blood (NEGATIVE) Urine Nitrite (NEGATIVE) Urine Bilirubin (NEGATIVE) Urine Urobilinogen (0.2-1.0) E.U./dL Ur Leukocyte Esterase (NEGATIVE) Urine RBC /HPF Urine WBC /HPF Ur Epithelial Cells /LPF Urine Bacteria (NONE TO FEW) /HPF FAYE Results - Last 24 hrs: None Med Orders - Current: Current Medications Acetaminophen (Acetaminophen 325 Mg Tab) 650 mg PO Q4H PRN PRN Reason: analgesia/fever Last Admin: 06/12/20 08:00 Dose: 650 mg Documented by: Albuterol (Albuterol 6.7 Gm Inhaler) 1 gm INH Q2H PRN PRN Reason: Shortness of Breath Albuterol/Ipratropium (Albuterol/Ipratropium 3.0-0.5 Mg/3 Ml Neb Soln) 3 ml NEB QIDRT [facility] Last Admin: 06/12/20 07:47 Dose: 3 ml Documented by: Aspirin (Aspirin 81 Mg Tab.Ec) 81 mg PO DAILY [facility] Last Admin: 06/12/20 07:48 Dose: 81 mg Documented by: Atorvastatin Calcium (Atorvastatin 40 Mg Tab) 40 mg PO BEDTIME [facility] Last Admin: 06/11/20 20:12 Dose: 40 mg Documented by: Bisacodyl (Bisacodyl 10 Mg Supp) 10 mg RECTAL DAILY PRN PRN Reason: Constipation Last Admin: 06/08/20 13:18 Dose: 10 mg Documented by: Bumetanide (Bumetanide 1 Mg Tab) 1 mg PO DAILY [facility] Last Admin: 06/12/20 07:47 Dose: 1 mg Documented by: Calcium Carbonate/Glycine (Calcium Carbonate 750 Mg Tab.Chew) 1,500 mg PO BEDTIME [facility] Last Admin: 06/11/20 20:11 Dose: 1,500 mg Documented by: Calcium Carbonate/Glycine (Calcium Carbonate 500 Mg Tab.Chew) 1,000 mg PO Q2HR PRN PRN Reason: Indigestion Carvedilol (Carvedilol 12.5 Mg Tab) 12.5 mg PO QPM [facility] Last Admin: 06/11/20 18:27 Dose: 12.5 mg Documented by: Carvedilol (Carvedilol 25 Mg Tab) 25 mg PO QAM [facility] Last Admin: 06/12/20 07:48 Dose: 25 mg Documented by: Clotrimazole (Clotrimazole 1% Crm 30 Gm Tube) 1 gm TOP BID PRN PRN Reason: skin irritation Last Admin: 06/09/20 13:03 Dose: 1 applic Documented by: Diclofenac Sodium (Diclofenac Sodium 1% Gel 100 Gm Tube) 1 gm TOP QID PRN PRN Reason: Pain Last Admin: 06/10/20 17:14 Dose: 1 applic Documented by: Docusate Sodium (Docusate Sodium 100 Mg Cap) 100 mg PO BID PRN PRN Reason: Constipation Last Admin: 06/09/20 07:58 Dose: 100 mg Documented by: Dorzolamide HCl (Dorzolamide 2% Ophth Soln 10 Ml Bottle) 1 ml EYEBOTH BID [facility] Last Admin: 06/12/20 07:52 Dose: 1 drop Documented by: Ferrous Sulfate (Ferrous Sulfate 325 Mg Tab) 325 mg PO BIDMEALS [facility] Last Admin: 06/12/20 07:47 Dose: 325 mg Documented by: Glucagon (Glucagon,Human Recombinant 1 Mg Vial) 1 mg IM ASDIRECTED PRN PRN Reason: Hypoglycemia Insulin Human Lispro (Insulin Lispro 100 Units/Ml 3 Ml Vial) 0 unit SUBCUT BIDAC [facility]; Protocol Last Admin: 06/12/20 07:53 Dose: 1 units Documented by: Latanoprost (Latanoprost 0.005% Ophth Soln 2.5 Ml Bottle) 1 ml EYEBOTH BEDTIME [facility] Last Admin: 06/11/20 20:11 Dose: 2 drop Documented by: Magnesium Hydroxide (Magnesium Hydroxide 400 Mg/5 Ml Susp 30 Ml Cup) 30 ml PO DAILY PRN PRN Reason: Constipation Magnesium Oxide (Magnesium Oxide 400 Mg Tab) 400 mg PO DAILY [facility] Last Admin: 06/12/20 07:47 Dose: 400 mg Documented by: Mometasone Furoate/Formoterol Fumar (Formoterol/Mometasone 200-5 Mcg 8.8 Gm Inhaler) 1 puff IH BID [facility] Last Admin: 06/12/20 07:55 Dose: 1 puff Documented by: Nitroglycerin (Nitroglycerin 0.4 Mg Tab.Sl) 0.4 mg SL ASDIRECTED PRN PRN Reason: Chest Pain Last Admin: 06/12/20 05:50 Dose: 0.4 mg Documented by: Nystatin (Nystatin Crm 30 Gm Tube) 1 gm TOP QID [facility] Last Admin: 06/12/20 07:53 Dose: 1 applic Documented by: Ondansetron HCl (Ondansetron 4 Mg Tab.Dis) 4 mg PO Q6H PRN PRN Reason: Nausea/Vomiting Last Admin: 06/12/20 08:01 Dose: 4 mg Documented by: Pantoprazole Sodium (Pantoprazole 40 Mg Tab.Cr) 40 mg PO ACBREAKFAST [facility] Last Admin: 06/12/20 07:47 Dose: 40 mg Documented by: Senna/Docusate Sodium (Docusate Sodium/Sennosides 50-8.6 Mg Tab) 1 tab PO BID [facility] Last Admin: 06/12/20 07:47 Dose: 1 tab Documented by: Sodium Chloride (Sodium Chloride 0.9% 10 Ml Syringe) 10 ml FLUSH ASDIRECTED PRN PRN Reason: Keep Vein Open Temazepam (Temazepam 15 Mg Cap) 15 mg PO BEDTIME PRN PRN Reason: Insomnia Last Admin: 06/07/20 23:08 Dose: 15 mg Documented by: Triamcinolone Acetonide (Triamcinolone Acetonide 0.5% Crm 15 Gm Tube) 1 gm TOP QID [facility] Last Admin: 06/12/20 07:52 Dose: 1 applic Documented by: Discontinued Medications Al Hydroxide/Mg Hydroxide (Gi Cocktail Oral Solution 30 Ml) 30 ml PO ONETIME ONE Stop: 06/04/20 21:23 Last Admin: 06/04/20 22:12 Dose: 30 ml Documented by: Al Hydroxide/Mg Hydroxide (Gi Cocktail Oral Solution 30 Ml) 30 ml PO ONETIME ONE Stop: 06/12/20 05:41 Last Admin: 06/12/20 05:48 Dose: 30 ml Documented by: Clotrimazole (Clotrimazole 1% Crm 30 Gm Tube) 1 gm TOP BID [facility] Last Admin: 06/09/20 07:51 Dose: Not Given Documented by: Dextrose/Water (50% Dextrose In Water 50 Ml Syringe) 50 ml IV ASDIRECTED PRN PRN Reason: Hypoglycemia Dextrose/Water (50% Dextrose In Water 50 Ml Syringe) 50 ml IV ASDIRECTED PRN PRN Reason: Hypoglycemia Dextrose/Water (50% Dextrose In Water 50 Ml Syringe) 50 ml IV ASDIRECTED PRN PRN Reason: Hypoglycemia Enoxaparin Sodium (Enoxaparin 30 Mg/0.3 Ml Syringe) 30 mg SUBCUT Q24H [facility] Last Admin: 06/08/20 13:05 Dose: Not Given Documented by: Ferrous Sulfate (Ferrous Sulfate 325 Mg Tab) 325 mg PO BID [facility] Last Admin: 06/05/20 07:55 Dose: Not Given Documented by: Fluconazole (Fluconazole 100 Mg Tab) 100 mg PO DAILY [facility] Stop: 06/07/20 18:01 Last Admin: 06/07/20 08:25 Dose: 100 mg Documented by: Furosemide (Furosemide 40 Mg/4 Ml Vial) 40 mg IVPUSH BID [facility] Glucagon (Glucagon,Human Recombinant 1 Mg Vial) 1 mg IM ASDIRECTED PRN PRN Reason: Hypoglycemia Insulin Human Lispro (Insulin Lispro 100 Units/Ml 3 Ml Vial) 0 unit SUBCUT TID [facility]; Protocol Last Admin: 06/07/20 08:30 Dose: Not Given Documented by: Metronidazole (Metronidazole 500 Mg Tab) 500 mg PO TID@0800,1400,2000 [facility] Stop: 06/11/20 08:01 Last Admin: 06/11/20 07:34 Dose: 500 mg Documented by: Ondansetron HCl (Ondansetron 4 Mg/2 Ml Sdv) 4 mg IVPUSH Q6H PRN PRN Reason: Nausea/Vomiting Last Admin: 06/06/20 07:29 Dose: 4 mg Documented by: Pantoprazole Sodium (Pantoprazole 40 Mg Vial) 40 mg IVPUSH DAILY [facility] Pantoprazole Sodium (Pantoprazole 40 Mg Vial) 40 mg IVPUSH DAILY [facility] Last Admin: 06/09/20 07:51 Dose: Not Given Documented by: Prochlorperazine Edisylate (Prochlorperazine 10 Mg/2 Ml Sdv) 5 mg IVPUSH Q8H PRN PRN Reason: Nausea Last Admin: 06/07/20 01:18 Dose: 5 mg Documented by: Sodium Chloride (Sodium Chloride 0.9% 10 Ml Syringe) 10 ml FLUSH ASDIRECTED PRN PRN Reason: Keep Vein Open Last Admin: 06/07/20 08:24 Dose: 10 ml Documented by: Sodium Chloride (Sodium Chloride 0.9% 10 Ml Syringe) 10 ml FLUSH ASDIRECTED PRN PRN Reason: Keep Vein Open Sodium Polystyrene Sulfonate (Sodium Polystyrene Sulfonate 15 Gm/60 Ml Susp 60 Ml Bot) 15 gm PO ONETIME ONE Stop: 06/11/20 10:47 Last Admin: 06/11/20 12:33 Dose: 15 gm Documented by: Sodium Polystyrene Sulfonate (Sodium Polystyrene Sulfonate 15 Gm/60 Ml Susp 60 Ml Bot) 15 gm PO ONETIME ONE Stop: 06/11/20 17:01 Last Admin: 06/11/20 18:28 Dose: 15 gm Documented by: Trimethoprim/Sulfamethoxazole (Sulfamethoxazole/Trimethoprim 800-160 Mg Tab) 0.5 tab PO Q12HR [facility] Stop: 06/05/20 20:01 Last Admin: 06/05/20 20:23 Dose: 0.5 tab Documented by: - Exam Quality Assessment: Reports: DVT Prophylaxis. Denies: Supplemental Oxygen, Central Line/PICC, Urine Catheter, Skin Breakdown General: Reports: Alert, Oriented, Cooperative, No Acute Distress HEENT: Reports: Pupils Equal, Pupils Reactive, EOMI, Mucous Membr. Moist/[place]. Denies: Scleral Icterus Neck: Reports: Supple, Trachea Midline, No Thyromegaly, Carotid Bruit (Mild bilateral carotid bruits). Denies: Lymphadenopathy Lungs: Reports: Rales (Mild bilateral baseline). Denies: Decreased Breath Sounds, Crackles, Rhonchi, Rub, Wheezing Cardiovascular: Reports: Regular Rate, Regular Rhythm, No Murmurs. Denies: Gallops, Rubs GI/Abdominal Exam: Normal Bowel Sounds, Soft, Non-Tender, No Organomegaly, No Distention, No Abnormal Bruit, No Mass, Other (Obese). No: Guarding (Female) Exam: Deferred Rectal (Female) Exam: Deferred Back Exam: Reports: Full Range of Motion, Other (Mild kyphoscoliosis). Denies: CVA Tenderness (L), CVA Tenderness (R), Muscle Spasm, Paraspinal Tenderness, Vertebral Tenderness Extremities: Normal Inspection, Normal Range of Motion, Non-Tender, No Pedal Edema, Normal Capillary Refill. No: Charlee's Sign Skin: Reports: Warm, Dry, Intact. Denies: Ecchymosis Neurological: Reports: No New Focal Deficit, Other (No clinical orthostasis. Stable chronic generalized weakness requiring walker use) Psy/Mental Status: Reports: Alert, Normal Affect, Normal Mood. 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 New anterolateral cardiac ischemia 2. Incomplete/complete bifascicular bundle branch block
== END 2020-06-12 11:20 | DRG 948 ==
LOC: UNDOADMIN 12:41 → LL.MS 12:41
PROVIDERS: ADMIT Emergency Medicine; ATTEND Emergency Medicine
DX: R53.81 Other malaise (principal); A04.72 Enterocolitis due to Clostridium difficile, not specified as recurrent; N39.0 Urinary tract infection, site not specified; N18.4 Chronic kidney disease, stage 4 (severe); I25.118 Atherosclerotic heart disease of native coronary artery with other forms of angina pectoris; N17.9 Acute kidney failure, unspecified; E11.21 Type 2 diabetes mellitus with diabetic nephropathy; M19.90 Unspecified osteoarthritis, unspecified site; I50.9 Heart failure, unspecified; J43.1 Panlobular emphysema; E11.22 Type 2 diabetes mellitus with diabetic chronic kidney disease; Z79.4 Long term (current) use of insulin; I12.9 Hypertensive chronic kidney disease with stage 1 through stage 4 chronic kidney disease, or unspecified chronic kidney disease; E83.51 Hypocalcemia; K21.9 Gastro-esophageal reflux disease without esophagitis; Z71.6 Tobacco abuse counseling; E83.42 Hypomagnesemia; D64.9 Anemia, unspecified; E87.5 Hyperkalemia; D50.9 Iron deficiency anemia, unspecified
CPT/HCPCS: 36415; 74019; 80048; 80053; 81001; 82962; 83735; 84484; 85025; 93005; 94640; 97110-GO; 97110-GP; 97161-GP; 97165-GO; 97530-GO; 97530-GP; 97535-GO; 99232; 99239; A9270-GY; C9113; J0780; J1650; J2405; J7620-GY

== ENCOUNTER 2021-04-25 10:12 | Emergency (ER) | payer MEDICARE, OTHER ==
[2021-04-25] MEDS ORDERED: Sodium Chloride 0.9% 10 ML Syringe FLUSH PRN (10:22)
[2021-04-25] MEDS: Promethazine 25 MG/ML SDV IM ONE (10:49)
[2021-04-25] MEDS: Sodium Chloride 0.9% 1,000 ML IV ONE (10:50)
[2021-04-25 11:06] LABS: CHLORIDE,CL 96 mmol/L (98-107); SODIUM,NA 140 mmol/L (136-145)
[2021-04-25 11:07] LABS: ANION GAP 24.4 meq/L (7-15)
[2021-04-25 12:02] LABS: CORONAVIRUS COVID-19 NAA NEGATIVE (NEGATIVE); RESPIRATORY SYNCYTIAL VIR NAA NEGATIVE (NEGATIVE)
[2021-04-25] MEDS: Ondansetron 4 MG/2 ML SDV IVPUSH ONE (13:24)
[2021-04-25 14:06] LABS: O2 DELIVERY DEVICE ROOM AIR
[2021-04-25 14:15] LABS: PH,VENOUS 7.39 (7.31-7.41)
[2021-04-25 14:16] LABS: BASE EXCESS VENOUS -3 mmol/L ((-2)-3); BICARBONATE,VENOUS 21 mmol/L (23-28); O2 SATURATION VENOUS 86 %; PCO2 VENOUS 35 mmHG (41-51); PO2 VENOUS 52 mmHG
[2021-04-25] MEDS: Sodium Chloride 0.9% 1,000 ML IV SCH (15:28)
== END 2021-04-25 18:30 ==
LOC: LL.ED 10:12 → SUPCPDRO 10:12 → LL.ED 18:30
DX: N17.9 Acute kidney failure, unspecified (principal); I25.10 Atherosclerotic heart disease of native coronary artery without angina pectoris; I11.0 Hypertensive heart disease with heart failure; I50.9 Heart failure, unspecified; E78.00 Pure hypercholesterolemia, unspecified; J44.9 Chronic obstructive pulmonary disease, unspecified; M19.90 Unspecified osteoarthritis, unspecified site; E11.42 Type 2 diabetes mellitus with diabetic polyneuropathy; D50.9 Iron deficiency anemia, unspecified; E66.9 Obesity, unspecified; Z88.5 Allergy status to narcotic agent; Z79.82 Long term (current) use of aspirin; Z79.4 Long term (current) use of insulin; Z79.899 Other long term (current) drug therapy; Z20.822 Contact with and (suspected) exposure to COVID-19
CPT/HCPCS: 0241U; 36415; 74022; 80053; 82009; 82272; 82803; 82947; 83605; 83735; 83880; 85025; 96372; 96374; 99284; 99285-25; J2405; J2550; J7030

== ENCOUNTER 2021-10-25 15:28 | Inpatient (IN) | payer MEDICARE, OTHER ==
[2021-10-25] MEDS ORDERED: Acetaminophen 325 MG Tab PO PRN (16:22)
[2021-10-25] MEDS ORDERED: Ondansetron 4 MG/2 ML SDV IVPUSH PRN (16:22)
[2021-10-25] MEDS ORDERED: Polyethylene Glycol 3350 Powder 17 GM Packet PO PRN (16:29)
[2021-10-25] MEDS ORDERED: Heparin Sodium 5,000 Units/ML Vial SUBCUT SCH (16:30)
[2021-10-25] MEDS ORDERED: cefTRIAXone 1 GM in Sodium Chloride 0.9% 100 ML IV SCH (16:30)
[2021-10-25] MEDS ORDERED: Glucagon,Human Recombinant 1 MG Vial IM PRN (16:33)
[2021-10-25] MEDS ORDERED: 50% Dextrose in Water 50 ML Syringe IVPUSH PRN (16:33)
[2021-10-25] MEDS: Insulin Lispro 100 Units/ML 3 ML Vial SUBCUT SCH ×2 (17:49→21:40)
[2021-10-25] MEDS ORDERED: BRINZOLAMIDE EYEBOTH SCH (18:00)
[2021-10-25] MEDS: Sodium Chloride 0.9% 10 ML Syringe FLUSH PRN (18:03)
[2021-10-25] MEDS: Formoterol/Mometasone 200-5 MCG 8.8 GM Inhaler IH SCH (18:09)
[2021-10-25] MEDS: Nystatin Crm 30 GM Tube TOP SCH (18:11)
[2021-10-25] MEDS: Lactated Ringers 1,000 ML IV SCH (18:50)
[2021-10-25] MEDS: Insulin Glarg,Human.Rec.Analog 100 Unit/ML SUBCUT SCH (20:19)
[2021-10-25] MEDS: Latanoprost 0.005% Ophth Soln 2.5 ML Bottle EYEBOTH SCH (20:23)
[2021-10-25] MEDS: Albuterol/Ipratropium 3.0-0.5 MG/3 ML Neb Soln NEB SCH (20:26)
[2021-10-26] MEDS: Lactated Ringers 1,000 ML IV SCH (02:55)
[2021-10-26] MEDS: Heparin Sodium 5,000 Units/ML Vial SUBCUT SCH ×3 (07:29→23:19)
[2021-10-26] MEDS: Insulin Lispro 100 Units/ML 3 ML Vial SUBCUT SCH ×4 (07:33→21:04)
[2021-10-26] MEDS: Albuterol/Ipratropium 3.0-0.5 MG/3 ML Neb Soln NEB SCH ×4 (07:34→21:01)
[2021-10-26] MEDS: Nystatin Crm 30 GM Tube TOP SCH ×3 (07:34→20:57)
[2021-10-26] MEDS: Formoterol/Mometasone 200-5 MCG 8.8 GM Inhaler IH SCH ×2 (07:36→18:33)
[2021-10-26] MEDS ORDERED: Lactated Ringers 1,000 ML IV ONE (12:32)
[2021-10-26] MEDS: Potassium Chloride 10 MEQ Tab.ER PO SCH ×3 (13:09→21:00)
[2021-10-26] MEDS: cefTRIAXone 1 GM in Sodium Chloride 0.9% 100 ML IV SCH (18:33)
[2021-10-26] MEDS: Latanoprost 0.005% Ophth Soln 2.5 ML Bottle EYEBOTH SCH (20:57)
[2021-10-26] MEDS: diphenhydrAMINE 25 MG Cap PO PRN (21:00)
[2021-10-26] MEDS: Insulin Glarg,Human.Rec.Analog 100 Unit/ML SUBCUT SCH (21:01)
[2021-10-27] MEDS: Heparin Sodium 5,000 Units/ML Vial SUBCUT SCH ×3 (07:59→22:51)
[2021-10-27] MEDS: Formoterol/Mometasone 200-5 MCG 8.8 GM Inhaler IH SCH ×2 (07:59→19:55)
[2021-10-27] MEDS: Albuterol/Ipratropium 3.0-0.5 MG/3 ML Neb Soln NEB SCH ×4 (07:59→19:59)
[2021-10-27] MEDS: Insulin Lispro 100 Units/ML 3 ML Vial SUBCUT SCH ×4 (08:00→20:36)
[2021-10-27] MEDS: Nystatin Crm 30 GM Tube TOP SCH ×3 (08:00→19:58)
[2021-10-27 08:14] LABS: ANION GAP 13.6 meq/L (7-15)
[2021-10-27] MEDS: Meropenem 500 MG in Sodium Chloride 0.9% 100 ML IV SCH (17:45)
[2021-10-27] MEDS: Insulin Glarg,Human.Rec.Analog 100 Unit/ML SUBCUT SCH (19:57)
[2021-10-27] MEDS: Latanoprost 0.005% Ophth Soln 2.5 ML Bottle EYEBOTH SCH (19:59)
[2021-10-27] MEDS: diphenhydrAMINE 25 MG Cap PO PRN (20:03)
[2021-10-28] MEDS: cefTRIAXone 1 GM in Sodium Chloride 0.9% 100 ML IV SCH (07:33)
[2021-10-28] MEDS: Meropenem 500 MG in Sodium Chloride 0.9% 100 ML IV SCH ×2 (07:49→19:26)
[2021-10-28] MEDS: Heparin Sodium 5,000 Units/ML Vial SUBCUT SCH ×3 (07:49→22:40)
[2021-10-28] MEDS: Formoterol/Mometasone 200-5 MCG 8.8 GM Inhaler IH SCH ×2 (07:49→18:07)
[2021-10-28] MEDS: Albuterol/Ipratropium 3.0-0.5 MG/3 ML Neb Soln NEB SCH ×4 (07:50→19:26)
[2021-10-28] MEDS: Nystatin Crm 30 GM Tube TOP SCH ×3 (07:51→19:26)
[2021-10-28] MEDS: Insulin Lispro 100 Units/ML 3 ML Vial SUBCUT SCH ×4 (07:52→20:06)
[2021-10-28] MEDS: Latanoprost 0.005% Ophth Soln 2.5 ML Bottle EYEBOTH SCH (19:24)
[2021-10-28] MEDS: Sodium Chloride 0.9% 10 ML Syringe FLUSH PRN ×2 (19:32→20:05)
[2021-10-28] MEDS: Insulin Glarg,Human.Rec.Analog 100 Unit/ML SUBCUT SCH (19:40)
[2021-10-29] MEDS: Insulin Lispro 100 Units/ML 3 ML Vial SUBCUT SCH ×4 (07:34→20:35)
[2021-10-29] MEDS: Formoterol/Mometasone 200-5 MCG 8.8 GM Inhaler IH SCH ×2 (08:22→18:13)
[2021-10-29] MEDS: Heparin Sodium 5,000 Units/ML Vial SUBCUT SCH ×2 (08:22→15:37)
[2021-10-29] MEDS: Nystatin Crm 30 GM Tube TOP SCH ×3 (08:23→20:34)
[2021-10-29] MEDS: Albuterol/Ipratropium 3.0-0.5 MG/3 ML Neb Soln NEB SCH ×4 (08:23→20:35)
[2021-10-29] MEDS: Meropenem 500 MG in Sodium Chloride 0.9% 100 ML IV SCH ×2 (08:24→20:31)
[2021-10-29 09:03] LABS: ANION GAP 13.4 meq/L (7-15)
[2021-10-29] MEDS: Latanoprost 0.005% Ophth Soln 2.5 ML Bottle EYEBOTH SCH (20:34)
[2021-10-29] MEDS: Insulin Glarg,Human.Rec.Analog 100 Unit/ML SUBCUT SCH (20:36)
== END 2021-10-29 21:31 | disposition swing bed (61) | DRG 683 ==
LOC: LL.MS 15:30
PROVIDERS: ADMIT Hospitalist; ATTEND Hospitalist
DX: N17.9 Acute kidney failure, unspecified (principal); I13.0 Hypertensive heart and chronic kidney disease with heart failure and stage 1 through stage 4 chronic kidney disease, or unspecified chronic kidney disease; N30.00 Acute cystitis without hematuria; I50.32 Chronic diastolic (congestive) heart failure; K55.9 Vascular disorder of intestine, unspecified; I42.9 Cardiomyopathy, unspecified; N18.4 Chronic kidney disease, stage 4 (severe); Z66 Do not resuscitate; Z51.5 Encounter for palliative care; E11.42 Type 2 diabetes mellitus with diabetic polyneuropathy; I25.10 Atherosclerotic heart disease of native coronary artery without angina pectoris; D50.9 Iron deficiency anemia, unspecified; H40.9 Unspecified glaucoma; J44.9 Chronic obstructive pulmonary disease, unspecified; E11.22 Type 2 diabetes mellitus with diabetic chronic kidney disease; E79.0 Hyperuricemia without signs of inflammatory arthritis and tophaceous disease; B96.20 Unspecified Escherichia coli [E. coli] as the cause of diseases classified elsewhere; H91.90 Unspecified hearing loss, unspecified ear; H54.7 Unspecified visual loss; E78.00 Pure hypercholesterolemia, unspecified; K21.9 Gastro-esophageal reflux disease without esophagitis; K52.9 Noninfective gastroenteritis and colitis, unspecified; I27.20 Pulmonary hypertension, unspecified; M54.2 Cervicalgia; G89.29 Other chronic pain; Z88.5 Allergy status to narcotic agent; Z79.82 Long term (current) use of aspirin; Z79.4 Long term (current) use of insulin; Z79.51 Long term (current) use of inhaled steroids; Z87.01 Personal history of pneumonia (recurrent); Z99.81 Dependence on supplemental oxygen; Z87.891 Personal history of nicotine dependence
CPT/HCPCS: 36415; 51702; 80048; 81001; 82947; 83735; 84100; 85027; 87086; 87088; 87186; 94640; 97162-GP; 97165-GO; 97530-GO; 97530-GP; A9270-GY; J0696; J1644; J1815-GY; J2185; J3490; J7120; J7620-GY

== ENCOUNTER 2021-10-29 21:23 | Inpatient (IN) | payer MEDICARE, OTHER ==
[2021-10-29] MEDS ORDERED: Polyethylene Glycol 3350 Powder 17 GM Packet PO PRN (21:53)
[2021-10-29] MEDS ORDERED: diphenhydrAMINE 25 MG Cap PO PRN (21:53)
[2021-10-29] MEDS ORDERED: 50% Dextrose in Water 50 ML Syringe IVPUSH PRN (21:53)
[2021-10-29] MEDS ORDERED: Glucagon,Human Recombinant 1 MG Vial IM PRN ×2 (21:53)
[2021-10-30] MEDS ORDERED: Non-Formulary Medication 1 Each (Brinzolamide [Azopt 1% Ophth Susp] 1 DROP) EYEBOTH SCH (08:00)
[2021-10-30] MEDS: Formoterol/Mometasone 200-5 MCG 8.8 GM Inhaler IH SCH ×2 (08:00→17:32)
[2021-10-30] MEDS: Insulin Lispro 100 Units/ML 3 ML Vial SUBCUT SCH ×4 (08:00→20:41)
[2021-10-30] MEDS: Meropenem 500 MG in Sodium Chloride 0.9% 100 ML IV SCH ×2 (08:36→19:35)
[2021-10-30] MEDS: Albuterol/Ipratropium 3.0-0.5 MG/3 ML Neb Soln NEB SCH ×4 (08:37→20:41)
[2021-10-30] MEDS: Nystatin Crm 30 GM Tube TOP SCH ×3 (08:37→20:41)
[2021-10-30] MEDS: Latanoprost 0.005% Ophth Soln 2.5 ML Bottle EYEBOTH SCH (20:41)
[2021-10-30] MEDS: Insulin Glarg,Human.Rec.Analog 100 Unit/ML SUBCUT SCH (20:43)
[2021-10-31] MEDS: Albuterol/Ipratropium 3.0-0.5 MG/3 ML Neb Soln NEB SCH ×4 (08:51→20:18)
[2021-10-31] MEDS: Formoterol/Mometasone 200-5 MCG 8.8 GM Inhaler IH SCH ×2 (08:51→17:27)
[2021-10-31] MEDS: Insulin Lispro 100 Units/ML 3 ML Vial SUBCUT SCH ×4 (08:51→21:00)
[2021-10-31] MEDS: Meropenem 500 MG in Sodium Chloride 0.9% 100 ML IV SCH ×2 (08:52→20:13)
[2021-10-31] MEDS: Nystatin Crm 30 GM Tube TOP SCH ×3 (08:52→20:18)
[2021-10-31] MEDS: Acetaminophen 325 MG Tab PO PRN (15:13)
[2021-10-31] MEDS: Insulin Glarg,Human.Rec.Analog 100 Unit/ML SUBCUT SCH (20:07)
[2021-10-31] MEDS: Latanoprost 0.005% Ophth Soln 2.5 ML Bottle EYEBOTH SCH (20:14)
[2021-11-01] MEDS: Formoterol/Mometasone 200-5 MCG 8.8 GM Inhaler IH SCH ×2 (08:33→17:24)
[2021-11-01] MEDS: Nystatin Crm 30 GM Tube TOP SCH ×4 (08:33→19:21)
[2021-11-01] MEDS: Albuterol/Ipratropium 3.0-0.5 MG/3 ML Neb Soln NEB SCH ×4 (08:33→19:21)
[2021-11-01] MEDS: Insulin Lispro 100 Units/ML 3 ML Vial SUBCUT SCH ×3 (08:34→17:04)
[2021-11-01] MEDS: Meropenem 500 MG in Sodium Chloride 0.9% 100 ML IV SCH ×2 (08:34→19:22)
[2021-11-01] MEDS: Sodium Chloride 0.9% 10 ML Syringe FLUSH PRN ×2 (09:38→19:23)
[2021-11-01] MEDS: Acetaminophen 325 MG Tab PO PRN (09:40)
[2021-11-01] MEDS: Latanoprost 0.005% Ophth Soln 2.5 ML Bottle EYEBOTH SCH (19:21)
[2021-11-01] MEDS: Insulin Glarg,Human.Rec.Analog 100 Unit/ML SUBCUT SCH (19:45)
[2021-11-01] MEDS ORDERED: Fluconazole 200 MG Tab PO SCH (20:00)
[2021-11-02] MEDS: Meropenem 500 MG in Sodium Chloride 0.9% 100 ML IV SCH ×2 (09:32→19:28)
[2021-11-02] MEDS: Formoterol/Mometasone 200-5 MCG 8.8 GM Inhaler IH SCH ×2 (09:33→17:04)
[2021-11-02] MEDS: Nystatin Crm 30 GM Tube TOP SCH ×3 (09:33→19:29)
[2021-11-02] MEDS: Albuterol/Ipratropium 3.0-0.5 MG/3 ML Neb Soln NEB SCH ×4 (09:33→19:29)
[2021-11-02] MEDS: Acetaminophen 325 MG Tab PO PRN (10:23)
[2021-11-02] MEDS ORDERED: Fluconazole 200 MG Tab PO SCH (17:00)
[2021-11-02] MEDS: Insulin Glarg,Human.Rec.Analog 100 Unit/ML SUBCUT SCH (19:28)
[2021-11-02] MEDS: Latanoprost 0.005% Ophth Soln 2.5 ML Bottle EYEBOTH SCH (19:29)
[2021-11-03] MEDS: Acetaminophen 325 MG Tab PO PRN ×2 (08:20→14:41)
[2021-11-03] MEDS: Albuterol/Ipratropium 3.0-0.5 MG/3 ML Neb Soln NEB SCH ×4 (08:21→19:54)
[2021-11-03] MEDS: Meropenem 500 MG in Sodium Chloride 0.9% 100 ML IV SCH ×2 (08:29→19:53)
[2021-11-03] MEDS: Sodium Chloride 0.9% 10 ML Syringe FLUSH PRN ×2 (08:29→09:01)
[2021-11-03] MEDS: Nystatin Crm 30 GM Tube TOP SCH ×3 (08:30→19:53)
[2021-11-03] MEDS: Formoterol/Mometasone 200-5 MCG 8.8 GM Inhaler IH SCH ×2 (08:30→17:41)
[2021-11-03] MEDS: Fluconazole 200 MG Tab PO SCH (12:11)
[2021-11-03] MEDS: Insulin Glarg,Human.Rec.Analog 100 Unit/ML SUBCUT SCH (19:54)
[2021-11-03] MEDS: Latanoprost 0.005% Ophth Soln 2.5 ML Bottle EYEBOTH SCH (19:55)
[2021-11-04] MEDS: Acetaminophen 325 MG Tab PO PRN ×2 (04:00→09:45)
[2021-11-04] MEDS: Nystatin Crm 30 GM Tube TOP SCH (09:45)
[2021-11-04] MEDS: Fluconazole 200 MG Tab PO SCH (09:45)
[2021-11-04] MEDS: Albuterol/Ipratropium 3.0-0.5 MG/3 ML Neb Soln NEB SCH ×2 (09:45→12:57)
[2021-11-04] MEDS: Meropenem 500 MG in Sodium Chloride 0.9% 100 ML IV SCH (09:46)
[2021-11-04] MEDS: Formoterol/Mometasone 200-5 MCG 8.8 GM Inhaler IH SCH (10:37)
[2021-11-04] MEDS ORDERED: Ondansetron 4 MG Tab.DIS PO ONE (11:00)
== END 2021-11-04 14:30 | disposition home health service (06) | DRG 690 ==
LOC: LL.MS 21:32
PROVIDERS: ADMIT Hospitalist; ATTEND Hospitalist
DX: N30.00 Acute cystitis without hematuria (principal); I13.0 Hypertensive heart and chronic kidney disease with heart failure and stage 1 through stage 4 chronic kidney disease, or unspecified chronic kidney disease; I50.32 Chronic diastolic (congestive) heart failure; N18.4 Chronic kidney disease, stage 4 (severe); R53.1 Weakness; R53.81 Other malaise; Z66 Do not resuscitate; I25.10 Atherosclerotic heart disease of native coronary artery without angina pectoris; E11.22 Type 2 diabetes mellitus with diabetic chronic kidney disease; E78.5 Hyperlipidemia, unspecified; K44.9 Diaphragmatic hernia without obstruction or gangrene; F10.20 Alcohol dependence, uncomplicated; E66.9 Obesity, unspecified; F41.9 Anxiety disorder, unspecified; E79.0 Hyperuricemia without signs of inflammatory arthritis and tophaceous disease; E11.42 Type 2 diabetes mellitus with diabetic polyneuropathy; D50.9 Iron deficiency anemia, unspecified; H40.9 Unspecified glaucoma; K21.9 Gastro-esophageal reflux disease without esophagitis; F32.A Depression, unspecified; B96.20 Unspecified Escherichia coli [E. coli] as the cause of diseases classified elsewhere; Z96.652 Presence of left artificial knee joint; Z96.612 Presence of left artificial shoulder joint; Z96.611 Presence of right artificial shoulder joint; Z68.26 Body mass index [BMI] 26.0-26.9, adult; Z79.82 Long term (current) use of aspirin; Z79.899 Other long term (current) drug therapy; Z79.1 Long term (current) use of non-steroidal anti-inflammatories (NSAID); Z79.52 Long term (current) use of systemic steroids; Z79.4 Long term (current) use of insulin; Z98.42 Cataract extraction status, left eye; Z98.41 Cataract extraction status, right eye; Z97.3 Presence of spectacles and contact lenses; Z87.01 Personal history of pneumonia (recurrent); Z87.19 Personal history of other diseases of the digestive system; Z87.440 Personal history of urinary (tract) infections; Z86.39 Personal history of other endocrine, nutritional and metabolic disease; Z90.710 Acquired absence of both cervix and uterus; Z98.890 Other specified postprocedural states; Z90.89 Acquired absence of other organs; Z90.49 Acquired absence of other specified parts of digestive tract; Z90.722 Acquired absence of ovaries, bilateral
CPT/HCPCS: 82947; 94640; 97110-GO; 97110-GP; 97161-GP; 97530-GO; 97535-GO; A9270-GY; J2185; J3490; J7620-GY

== ENCOUNTER 2021-11-07 09:47 | Observation (INO) | payer MEDICARE, OTHER ==
[2021-11-07] MEDS ORDERED: Sodium Chloride 0.9% 10 ML Syringe FLUSH PRN (10:27)
[2021-11-07] MEDS ORDERED: Sodium Chloride 0.9% 1,000 ML IV ONE (10:27)
[2021-11-07 11:25] LABS: ANION GAP 15.1 meq/L (7-15); CHLORIDE,CL 111 mmol/L (98-107); ESTIMATED GFR 22 mL/min (>=60); SODIUM,NA 141 mmol/L (136-145)
[2021-11-07] MEDS ORDERED: Ondansetron 4 MG/2 ML SDV IVPUSH ONE (12:12)
[2021-11-07] MEDS ORDERED: Magnesium Hydroxide 400 MG/5 ML Susp 30 ML Cup PO PRN (13:00)
[2021-11-07] MEDS ORDERED: Ondansetron 4 MG/2 ML SDV IVPUSH SCH (17:45)
[2021-11-07] MEDS ORDERED: Acetaminophen 325 MG Tab PO PRN (20:41)
[2021-11-07] MEDS ORDERED: Nitroglycerin 0.4 MG Tab.SL SL PRN (20:41)
[2021-11-07] MEDS ORDERED: Albuterol/Ipratropium 3.0-0.5 MG/3 ML Neb Soln NEB PRN (20:41)
[2021-11-07] MEDS ORDERED: Carvedilol 12.5 MG Tab PO SCH (20:45)
[2021-11-07] MEDS ORDERED: Nystatin Crm 30 GM Tube TOP SCH (20:45)
[2021-11-07] MEDS ORDERED: Ondansetron 4 MG/2 ML SDV IVPUSH PRN (21:36)
[2021-11-07] MEDS: Aspirin 81 MG Tab.EC PO SCH (23:39)
[2021-11-07] MEDS ORDERED: Furosemide 40 MG/4 ML VIAL IVPUSH ONE (23:40)
[2021-11-08] MEDS ORDERED: Ondansetron 4 MG/2 ML SDV IVPUSH PRN (07:25)
[2021-11-08] MEDS ORDERED: Promethazine 25 MG/ML SDV IM PRN (07:26)
[2021-11-08] MEDS ORDERED: Sodium Polystyrene Sulfonate 15 GM/60 ML Susp 60 ML Bot PO ONE ×2 (10:00→20:49)
[2021-11-08] MEDS: Aspirin 81 MG Tab.EC PO SCH (10:28)
[2021-11-08] MEDS: Carvedilol 6.25 MG Tab PO SCH ×2 (10:28→18:28)
[2021-11-08] MEDS: Furosemide 40 MG Tab PO SCH ×2 (10:28→18:27)
[2021-11-08] MEDS: Nystatin Crm 30 GM Tube TOP SCH ×2 (10:30→18:27)
[2021-11-08] MEDS: Insulin Lispro 100 Units/ML 3 ML Vial SUBCUT SCH ×2 (10:31→13:06)
[2021-11-08] MEDS ORDERED: Ondansetron 4 MG Tab.DIS PO PRN (12:12)
[2021-11-08] MEDS ORDERED: Acetaminophen 325 MG Tab PO PRN (13:41)
[2021-11-08] MEDS ORDERED: Insulin Glarg,Human.Rec.Analog 100 Unit/ML SUBCUT SCH (20:00)
[2021-11-08] MEDS ORDERED: Latanoprost 0.005% Ophth Soln 2.5 ML Bottle EYEBOTH SCH (20:00)
[2021-11-08] MEDS: Metoclopramide 10 MG Tab PO SCH (21:35)
[2021-11-09] MEDS: Metoclopramide 10 MG Tab PO SCH ×2 (07:51→09:52)
[2021-11-09] MEDS: Carvedilol 6.25 MG Tab PO SCH (07:51)
[2021-11-09] MEDS: Furosemide 40 MG Tab PO SCH (07:52)
[2021-11-09] MEDS: Nystatin Crm 30 GM Tube TOP SCH (07:58)
== END 2021-11-09 13:45 ==
LOC: LL.ED 09:47 → LL.MS 14:04
PROVIDERS: ADMIT Physician Assistant; ATTEND Nurse Practitioner Family
DX: E87.5 Hyperkalemia (principal); R06.02 Shortness of breath; R11.0 Nausea; I45.10 Unspecified right bundle-branch block; I25.10 Atherosclerotic heart disease of native coronary artery without angina pectoris; I11.0 Hypertensive heart disease with heart failure; I50.9 Heart failure, unspecified; I42.6 Alcoholic cardiomyopathy; I27.20 Pulmonary hypertension, unspecified; J44.9 Chronic obstructive pulmonary disease, unspecified; K21.9 Gastro-esophageal reflux disease without esophagitis; M19.90 Unspecified osteoarthritis, unspecified site; E11.40 Type 2 diabetes mellitus with diabetic neuropathy, unspecified; G43.909 Migraine, unspecified, not intractable, without status migrainosus; E66.9 Obesity, unspecified; M81.0 Age-related osteoporosis without current pathological fracture; E83.42 Hypomagnesemia; F10.10 Alcohol abuse, uncomplicated; Z90.49 Acquired absence of other specified parts of digestive tract; Z20.822 Contact with and (suspected) exposure to COVID-19; Z88.6 Allergy status to analgesic agent; Z98.890 Other specified postprocedural states; Z79.51 Long term (current) use of inhaled steroids; Z79.4 Long term (current) use of insulin; Z79.899 Other long term (current) drug therapy; Z90.710 Acquired absence of both cervix and uterus; Z96.652 Presence of left artificial knee joint
CPT/HCPCS: 36415; 71046; 74019; 80048; 80053; 81001; 82088; 82150; 82947; 83690; 84132; 84484; 85025; 87086; 93005; 93010; 99217; 99220; 99225; A9270-GY; J1815-GY; J1940; J2405; J2550; J3490; J7030; J7620-GY; U0002